=== PATIENT | male | born 1940 | race Caucasian/White ===

== ENCOUNTER → 2018-01-16 12:15 | Outpatient (CLI) | payer MEDICARE, SELFPAY ==
[2018-01-16 13:39] LABS: AST(SGOT) 22 U/L (15-37); Alanine Aminotransfer ALT/SGPT 19 U/L (16-61); Albumin, Serum 3.5 g/dL (3.2-5.0); Alkaline Phosphatase 74 U/L (45-117); Bilirubin, Direct 0.31 mg/dL (0.00-0.30); Cholesterol 74 mg/dL (200); Globulin 2.8 g/dL (2.2-4.2); High Density Lipoprotein 47 mg/dL; Protein, Total 6.3 g/dL (6.4-8.2); Triglycerides 43 mg/dL; Very Low Density Lipoprotein 9 mg/dL (5-40)
== END ==
PROVIDERS: Visit Provider Nurse Practitioner Family
DX: E78.2 Mixed hyperlipidemia (principal); E78.5 Hyperlipidemia, unspecified
CPT/HCPCS: 36415; 80061; 80076

== ENCOUNTER → 2019-12-15 | Outpatient (CLI) | payer MEDICARE, SELFPAY ==
[2019-02-09 14:08] VITALS: BMI 19.5
--- NOTE | 2019-12-15 13:52 | ECHOCS_ITS ---
Version 2 Reason For Study: CAD/ASHD Procedure This was a 2D Doppler, Color Flow transthoracic echocardiogram. The study was technically difficult. Contrast injection was performed. Exam performed in department. Left Ventricle Normal LV size. The estimated ejection fraction is 40 %. Stage 1 diastolic dysfunction. There are regional wall motion abnormalities as specified. Mid-Anterior : Severely Hypokinetic. Mid- anteroseptal : Hypokinetic. [place] : Akinetic. The rest of the wall segments are normal. Right Ventricle Normal RV size. ICD or pacer leads identified within the right ventricle. Normal systolic function. Atria Normal left atrium. Normal right atrium. Mitral Valve Normal mitral valve. Tricuspid Valve Normal tricuspid valve. Aortic Valve The aortic valve is not well visualized. Great Vessels Normal aortic root. The pulmonary artery is normal size. Normal inferior vena cava. Pericardium/Pleural No pericardial effusion. Medication 22 gauge I.V. with prn adaptor inserted into right arm. Diluted definity 4ml given slow IV push to enhance endocardial definition. MMode/2D Measurements & Calculations LVIDd: 5.3 cm IVSd: 0.86 cm LAV(MOD-bp): 47.3 ml LVIDs: 3.9 cm LVPWd: 1.1 cm LAV(MOD-sp2): 47.0 ml FS: 27.3 % LAV(MOD-sp4): 40.0 ml LA A4 area: 16.5 cm2 RA A4 area: 9.7 cm2 Time Measurements MV dec time: 0.30 sec Doppler Measurements & Calculations MV E max reynaldo: 51.1 cm/sec Lat Peak E' Reynaldo: 6.8 cm/sec Med Peak E' Reynaldo: 5.3 cm/sec MV A max reynaldo: 66.6 cm/sec E/E' lat: 7.5 E/E' med: 9.7 MV E/A: 0.77 MV V2 max: 85.7 cm/sec MV P1/2t max reynaldo: 66.4 cm/sec Ao V2 max: 112.7 cm/sec MV max P.9 mmHg MV P1/2t: 183.3 msec Ao max P.1 mmHg MV V2 mean: 43.7 cm/sec MV dec slope: 106.2 cm/sec2 MV mean P.89 mmHg MVA(P1/2t): 1.2 cm2 MV V2 VTI: 33.4 cm LV V1 max: 78.0 cm/sec LV V1 max P.4 mmHg Interpretation Summary Normal LV size. The estimated ejection fraction is 40 %. There are regional wall motion abnormalities as specified. ICD or pacer leads identified within the right ventricle. Stage 1 diastolic dysfunction. Contrast injection was performed. Ordering Physician: Wolfgang Conde Referring Physician: Wolfgang Conde Performed By: Henry Wyman RCS
== END | disposition home or self-care (01) ==
PROVIDERS: Referring Provider Internal Medicine Cardiovascular Disease; Visit Provider Internal Medicine Cardiovascular Disease
DX: I25.10 Atherosclerotic heart disease of native coronary artery without angina pectoris (principal)
CPT/HCPCS: 93306; Q9957; A4216; C8929

== ENCOUNTER 2020-09-21 07:19 | Outpatient (RCR) | payer MEDICARE, SELFPAY ==
[2020-09-21] MEDS: COVID-19 VACC, MRNA(PFIZER)/PF 30 MCG/0.3 ML SYRINGE IM (16:41)
[2020-10-12] MEDS: COVID-19 VACC, MRNA(PFIZER)/PF 30 MCG/0.3 ML SYRINGE IM (16:21)
== END 2020-12-19 23:59 ==
LOC: IMMUN 07:19
PROVIDERS: Referring Provider Family Medicine; Visit Provider Family Medicine
DX: Z23 Encounter for immunization (principal)
CPT/HCPCS: 0001A; 0002A; 91300

== ENCOUNTER → 2023-10-22 | Outpatient (CLI) | payer MEDICARE, SELFPAY ==
[2023-10-22 17:21] LABS: AST(SGOT) 18 U/L (15-37); Alanine Aminotransfer ALT/SGPT 16 U/L (16-61); Albumin, Serum 3.5 g/dL (3.2-5.0); Alkaline Phosphatase 65 U/L (45-117); Bilirubin, Direct 0.19 mg/dL (0.00-0.30); Cholesterol 171 mg/dL (200); Globulin 3.3 g/dL (2.2-4.2); High Density Lipoprotein 47 mg/dL; Protein, Total 6.8 g/dL (6.4-8.2); Triglycerides 96 mg/dL; Very Low Density Lipoprotein 19 mg/dL (5-40)
== END | disposition home or self-care (01) ==
LOC: LAB 14:52
PROVIDERS: Referring Provider Nurse Practitioner Family; Visit Provider Nurse Practitioner Family
DX: E78.00 Pure hypercholesterolemia, unspecified (principal)
CPT/HCPCS: 36415; 80061; 80076

== ENCOUNTER → 2023-11-10 | Outpatient (CLI) | payer MEDICARE, SELFPAY ==
[2023-11-10 16:58] LABS: Absolute Lymphocyte Count 1.08 X10^3/uL (0.83-4.51); Basophil# 0.02 X10^3/uL; Basophil% 0.4 % (0-1); Eosinophil# 0.05 X10^3/uL; Eosinophils% 0.9 % (0-5); Hematocrit 42.7 % (40-54); Lymphocyte # 1.08 X10^3/ul (0.83-4.51); Lymphocyte % 19.5 % (19-41); Mean Corp Hgb Conc 32.8 g/dL (32-36); Mean Corpuscular Hgb 30.7 pg (27.0-32.0); Mean Corpuscular Volume 93.6 fL (80-94); Mean Platelet Vol. 11.2 fl (6.2-12.0); Monocyte# 0.44 X10^3/uL; Monocyte% 7.9 % (0-10); NRBC Flagged by Analyzer 0 % (0-5); Neutrophil # 3.95 X10^3/uL (2.7-7.7); Neutrophil % 71.1 % (47-70); POSITIVE COUNT YES; RBC Distribution Width CV 13.4 % (11.6-14.6); RBC Distribution Width SD 45.7 fl (35.1-43.9); Red Blood Count 4.56 M/mm3 (4.6-6.2); White Blood Count 5.6 K/mm3 (4.4-11.0)
[2023-11-10 17:18] LABS: Differential Indicated SCAN CRITERIA MET
[2023-11-10 17:36] LABS: ALB/GLOB Ratio 1.1 RATIO (0.9-2.4); AST(SGOT) 23 U/L (15-37); Alanine Aminotransfer ALT/SGPT 19 U/L (16-61); Albumin, Serum 3.9 g/dL (3.2-5.0); Alkaline Phosphatase 71 U/L (45-117); Anion Gap 9 (5-15); BUN 20 mg/dL (7-18); BUN/Creat Ratio 15.7 RATIO (10-20); Calcium,Total 9.1 mg/dL (8.5-10.1); Chloride 107 mmol/L (98-107); Creatinine, Serum 1.27 mg/dL (0.70-1.30); EST Glomerular Filtration Rate 58 mL/min (>60); Est Glom Filt Rate - Afr Amer 70 mL/min (>60); Globulin 3.7 g/dL (2.2-4.2); Glucose 97 mg/dL (74-106); Magnesium 2.3 mg/dL (1.6-2.6); Potassium 4.3 mmol/L (3.5-5.1); Protein, Total 7.6 g/dL (6.4-8.2); Sodium Level 137 mmol/L (136-145); T4 Free Direct 1.24 ng/dL (0.76-1.46); Thyroid Stim Hormone (TSH) 1.52 uIU/mL (0.358-3.74)
[2023-11-10 18:16] LABS: Differential Comment SCANNED
[2023-11-10 18:17] LABS: Platelet Estimate ADEQUATE (ADEQ)
== END | disposition home or self-care (01) ==
LOC: LAB 15:57
PROVIDERS: Referring Provider Nurse Practitioner Family; Visit Provider Nurse Practitioner Family
DX: I47.29 Other ventricular tachycardia (principal); R00.1 Bradycardia, unspecified
CPT/HCPCS: 36415; 80053; 83735; 84439; 84443; 85025

== ENCOUNTER 2025-01-22 23:48 | Emergency (ER) | payer MEDICARE, SELFPAY ==
[2025-01-22 23:50] VITALS: BP 149/110; PULSE 58; RESP 16; TEMP 36.8; O2SAT 100; BMI 18.1
--- NOTE | 2025-01-23 00:44 | EDS_ITS ---
HPI History of Present Illness Chief Complaint: Suicidal Narrative Narrative: Chief complaint and HPI: Suicidal ideation. 84-year-old male with past medical history of HTN, HLD presents as a pink slip by police for suicidal ideation. Police officers responded to a threat complaint as patient was making threats to his neighbors. He then stated multiple times that he wanted to end it all and put a gun to his head. On presentation, patient is calm and sitting in the bed. He repeats I am just tired of this and want to end it. When I asked him about the reported statement that he wanted to end his life with a gun, he states that is not true. Although he did state it to my nurse prior to me entering the room. He denies homicidal ideation. He states he does not want to talk to me and does not want to answer my questions. Review of systems: See HPI Medications: As listed on the chart Allergies: As listed on the chart PFSH: Per chart Vital signs: As listed on the chart. Reviewed. 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 (07/28/09) Ischemic cardiomyopathy HLD (hyperlipidemia) Bradycardia Home Medications ?Medication ?Instructions ?Recorded ?Last Taken ?Type aspirin 81 mg tablet,delayed 81 mg PO QDAY 07/23/17 Un known History release (Adult Aspirin Regimen) atorvastatin 80 mg tablet 80 mg PO QDAY #90 tabs 10/27 Unknown Rx carvedilol 12.5 mg tablet 12.5 mg PO BID #180 tabs Unknown Rx lisinopril 10 mg tablet 10 mg PO QDAY #90 tabs 09/23 Unknown Rx Allergy/AdvReac Type Severity Reaction Status Date / Time No Known Allergies Allergy Verified 12/01/24 14:17 Family History Mother CAD (coronary artery disease) Myocardial infarction Aunt CAD (coronary artery disease) Myocardial infarction Uncle CAD (coronary artery disease) Myocardial infarction Surgical History Presence of automatic implantable cardioverter-defibrillator (07/23/12) History of coronary artery stent placement (07/28/09) Social History Smoking Status: Never smoker alcohol intake: never substance use type: does not use caffeine: Yes Type: coffee what type of physical activity do you participate in: walking frequency: daily duration: 60-90 minutes/day seatbelt use: always do you feel safe at home: Yes EXAM Physical Exam Const Vital Signs: 01/22/25 23:50 01/23/25 00:49 01/23/25 02:00 Temperature 98.3 F Temperature Source Oral Pulse Rate 58 L 84 91 Respiratory Rate 16 18 16 Blood Pressure 149/110 H 138/96 H 132/89 H Blood Pressure Mean 123 110 103 Pulse Ox 100 98 99 Oxygen Delivery Method Room Air 01/23/25 02:54 Temperature Temperature Source Pulse Rate 94 Respiratory Rate 16 Blood Pressure 141/99 H Blood Pressure Mean 113 Pulse Ox 99 Oxygen Delivery Method MDM MDM MDM Narrative Medical decision making narrative: 84-year-old male with past medical history of HTN, HLD presents as a pink slip by police for suicidal ideation. See HPI. On presentation, patient is alert and oriented x 3 but is reluctant to speak with me. He states that I am just sick of it all. He told my nurse prior to me entering the room that he did want to kill himself with a gun. Given the reports from police, my nurse, and my own assessment, patient will be pink slipped for suicidal ideation. He was informed of this. Confirmed understanding. Basic labs ordered and crisis consulted. CBC shows pancytopenia with a WBC of 4.2, hemoglobin 11.8, and platelet count of 136. He has not had labs in our emergency department since 2023. At that time he had a normal white count but has had previous leukopenia in the past. His anemia is new from 2023. He has had leukopenia since 2014. I did speak with the patient about his lab results. He states he does not know the last time he had his labs drawn. He denies any bloody or dark bowel movements. BMP shows renal insufficiency with a BUN of 27 and a creatinine of 1.53. I suspect this is chronic as in 2023 patient had an elevated BUN of 20 and a creatinine 1.27. Urine drug screen negative. Alcohol level unremarkable. Patient is cleared to be evaluated by crisis. Crisis evaluated the patient and is recommending [facility]. They state he missed one of his orientation questions however he got them all correctly for me. Will add on CT brain and UA. CT of the head shows moderate global parenchymal atrophy and chronic microvascular ischemia. UA pending at this time. Patient was accepted to [facility]. Will await UA results prior to arrival. Patient was signed out to oncoming provider who will await the UA results. Impression: 1. Suicidal ideation 2. Pancytopenia 3. Renal insufficiency Lab Data Labs: Laboratory Results - last 24 hr 01/23/25 01/23/25 00:13 01:30 WBC 4.2 L RBC 3.72 L Hgb 11.8 L Hct 34.1 L MCV 91.7 MCH 31.7 MCHC 34.6 RDW Std Deviation 41.1 RDW Coeff of Neva 12.2 Plt Count 136 L MPV 12.1 H Immature Gran % (Auto) 0.200 Neut % (Auto) 58.0 Lymph % (Auto) 31.2 [place]y % (Auto) 8.7 Eos % (Auto) 1.7 Baso % (Auto) 0.2 Absolute Neuts (auto) 2.5 Absolute Lymphs (auto) 1.32 Nucleated RBC % 0 Sodium 136 Potassium 3.9 Chloride 103 Carbon Dioxide 19.9 L Anion Gap 13 BUN 27 H Creatinine 1.53 H Estim Creat Clear Calc 28.48 L Est GFR (MDRD) Non-Af 45 L BUN/Creatinine Ratio 17.6 Glucose 130 H Calcium 8.9 Urine Opiates Screen NEGATIVE U Buprenorphine Qual NEGATIVE Ur Oxycodone Screen NEGATIVE Urine Methadone Screen NEGATIVE Urine Fentanyl Screen NEGATIVE Ur Barbiturates Screen NEGATIVE Ur Phencyclidine Scrn NEGATIVE Ur Amphetamines Screen NEGATIVE U Benzodiazepines Scrn NEGATIVE Urine Cocaine Screen NEGATIVE U Cannabinoids Screen NEGATIVE Ethyl Alcohol < 10.1 Radiography Diagnostic Testing: Clinical Impression(s) from Imaging Studies Brain CT 01/23/25 02:00 IMPRESSION: NO ACUTE FINDINGS Reading Location: [place] [address] Discharge Plan Triage Chief Complaint: Suicidal ED Provider: Henry Florentino Dx/Rx/DC Orders Prescriptions: No Action aspirin [Adult Aspirin Regimen] 81 mg tablet,delayed release (DR/EC) 81 mg PO QDAY atorvastatin 80 mg tablet 80 mg PO QDAY Qty: 90 3RF lisinopril 10 mg tablet 10 mg PO QDAY Qty: 90 3RF carvedilol 12.5 mg tablet 12.5 mg PO BID Qty: 180 3RF Primary Care Provider: Care Physician,No Primary Referrals: NOT,DEFINED [Non-Staff] - Print Language: Kinyarwanda
[2025-01-23 00:49] VITALS: BP 138/96; PULSE 84; RESP 18; O2SAT 98
[2025-01-23 00:49] LABS: Hematocrit 34.1 % (40-54); Hemoglobin 11.8 g/dL (13.0-16.5); Immature Granulocytes Count 0.010 X10^3/uL (0.0-0.0); Mean Corp Hgb Conc 34.6 g/dL (32-36); Mean Corpuscular Volume 91.7 fL (80-94); Mean Platelet Vol. 12.1 fl (6.2-12.0); NRBC Flagged by Analyzer 0 % (0-5); Platelet Count 136 K/mm3 (150-450); RBC Distribution Width CV 12.2 % (11.6-14.6); RBC Distribution Width SD 41.1 fl (35.1-43.9); Red Blood Count 3.72 M/mm3 (4.6-6.2); White Blood Count 4.2 K/mm3 (4.4-11.0)
--- OUTSIDE RECORDS SUMMARY | 2025-01-23 00:51 | XMS RPT_ITS | CCD ---
Author Organization [facility] CliniSym[facility] Care Team Providers Care Control And Recovery Special Tactics Name Role Phone CHERYL Herrera, Gina Hidalgo Unavailable Unavailable CHERYL Herrera, Gina Hidalgo Unavailable Unavailable Doreneis, Harumi Y Unavailable Unavailable MD Elton, Wolfgang Sue Unavailable CHERYL Herrera, Gina Hidalgo Unavailable Unavailable Alisia Vasquez Unavailable Mary LUNA, Mine Lugo Unavailable Unavailable DeFinis, Harumi Y Unavailable Unavailable CHERYL Herrera, Gina Hidalgo Unavailable Unavailable DeFinis, Harumi Y Unavailable Unavailable Care Physician, No Primary Primary Care Provider Unavailable Dr. Wolfgang Conde Attending Provider [phone] Roof PRE KINDERGARTEN TEACHER, PRE KINDERGARTEN TEACHER-C Marcelino Johnson Attending Provider Care Physician, No Primary Referring Provider Un available Care Physician, No Primary Primary Care Provider Unavailable Care Physician, No Primary Referring Provider Un available Toya Herrera Attending Provider Unavailable Roof PRE KINDERGARTEN TEACHER, PRE KINDERGARTEN TEACHER-C Marcelino Johnson Attending Provider Dr. Wolfgang Conde Attending Provider [phone] Wolfgang Conde Referring Provider [phone] Care Physician, No Primary Primary Care Provider Unavailable Care Physician, No Primary Referring Provider Un available Toya Herrera Attending Provider Unavailable Roof PRE KINDERGARTEN TEACHER-C, Marcelino Johnson Attending Provider Dr. Wolfgang Conde MD Attending Provider [phone] Dr. Wolfgang Conde MD Referring Provider Care Physician, No Primary Primary Care Provider Unavailable Care Physician, No Primary Referring Provider Un available Wolfgang Conde Attending Unavailable Wolfgang Conde Attending Unavailable Wolfgang Conde Referring Unavailable Care Physician, No Primary Primary Care Unava ilable Care Physician, No Primary Primary Care Unava ilable Care Physician, No Primary Referring Unava ilable Roof Marcelino MORGAN Attending Unavailable Wolfgang Conde Attending Unavailable Care Physician, No Primary Primary Care Unava ilable Care Physician, No Primary Primary Care Unava ilable Care Physician, No Primary Referring Unava ilable Roof Marcelino MORGAN Attending Unavailable Wolgfang Conde Referring Unavailable Wolfgang Conde Attending Unavailable Care Physician, No Primary Primary Care Unava ilable Wolfgang Conde Attending Unavailable Wolfgang Conde Attending Unavailable Wolfgang Conde Referring Unavailable Care Physician, No Primary Primary Care Unava ilable Medications Current Medications Medication Drug Class(es) Dates Sig (Normalized) Sig (Original) aspirin 81 mg delayed release oral tablet (20 sources) Nonsteroidal Anti-inflammatory Drug Start: 07-23-2017 take 1 tablet by mouth once daily Aspirin (Adult Aspirin Regimen) 81 mg tablet,delayed release (DR/EC) Active 81 mg PO daily July 23, 2017 1:00am Start: 11-20-2010 take 1 tablet by cydney th once daily ASPIRIN 81 MG TABS One tablet by mouth daily ASPIRIN [id number] Deepak Dawson MD Start: 11-20-2010 take 1 tablet by cydney th once daily ASPIRIN 81 MG TABS One tablet by mouth daily ASPIRIN [id number] Tricia Gomez Start: 11-20-2010 take 1 tablet by cydney th once daily ASPIRIN EC 81 MG TBEC One tablet by mouth daily ASPIRIN [id number] Jeimy Mendez RN carvedilol 12.5 mg oral tablet (20 sources) alpha-Adrenergic Juanito, beta-Adrenergic Juanito Start: 11-10-2023 End: 09-23-2024 take 1 tablet by mouth twice daily Carvedilol 12.5 mg tablet Active 12.5 mg PO TWICE A DAY 180 September 23, 2024 2:25pm Start: 07-23-2017 End: 11-10-2023 take 1 tablet by mouth twice daily Carvedilol 6.25 mg tablet Discontinued 0 .ROUTE .COMPLEX 180 November 12, 2022 9:01am July 17, 2023 2:48pm TAKE 1 TABLET BY MOUTH TWICE A DAY Start: 11-20-2010 take 1 tablet by cydney th twice daily COREG 6.25 MG TABS One tablet by mouth twice daily CARVEDILOL [id number] Wolfgang Conde MD Completed/Discontinued Medications Medication Drug Class(es) Dates Sig (Normalized) Sig (Original) atorvastatin 80 mg oral tablet (20 sources) HMG-CoA Reductase Inhibitor Start: 07-23-2017 End: 10-28-2019 take 1 tablet by mouth once daily Atorvastatin 80 mg tablet Discontinued 80 mg PO daily January 15, 2018 9:02am February 09, 2019 3:05pm Start: 11-20-2010 take 1 tablet by cydney th once daily LIPITOR 80 MG TABS One tablet by mouth daily ATORVASTATIN CALCIUM [id number] Wolfgang Conde MD clopidogrel 75 mg oral tablet (20 sources) P2Y12 Platelet Inhibitor Start: 07-23-2017 End: 07-17-2023 take 1 tablet by mouth once daily Clopidogrel 75 mg tablet Discontinued 0 .ROUTE .COMPLEX November 12, 2022 9:01am July 17, 2023 2:48pm TAKE 1 TABLET BY MOUTH EVERY DAY Start: 11-20-2010 take 1 tablet by cydney th once daily PLAVIX 75 MG TABS One tablet by mouth daily CLOPIDOGREL BISULFATE [id number] Jeimy Huang PA-C lisinopril 10 mg oral tablet (20 sources) Angiotensin Converting Enzyme Inhibitor Start: 07-17-2023 End: 09-23-2024 take 1 tablet by mouth once daily Lisinopril 10 mg tablet Discontinued 10 mg PO daily September 16, 2023 2:00pm September 23, 2024 2:25pm Start: 04-10-2023 End: 07-17-2023 take 1 tablet by mouth once daily Lisinopril 5 mg tablet Discontinued 5 mg PO daily April 10, 2023 1:28pm July 17, 2023 3:06pm Start: 07-23-2017 End: 04-10-2023 take 1 tablet by mouth once daily Lisinopril 2.5 mg tablet Discontinued 2.5 mg PO daily January 13, 2023 8:11am April 10, 2023 1:28pm Start: 11-20-2010 take 1 tablet by cydney th once daily LISINOPRIL 2.5 MG TABS One tablet by mouth daily LISINOPRIL [id number] Wolfgang Conde MD warfarin sodium 1 mg oral tablet (20 sources) Vitamin K Antagonist Start: 11-20-2010 End: 10-11-2011 take 1 tablet by mouth once daily in the evening, then take 2.5 tablets by mouth, then take 3.5 tablets by mouth COUMADIN 1 MG TABS 1 tablet by mouth every evening with a 2.5mg tablet to = 3.5 WARFARIN SODIUM [id number] Tricia Gomez Start: 11-20-2010 End: 10-11-2011 take 1 tablet by mouth once daily in the evening, then take 1 tablet by mouth COUMADIN 2.5 MG TABS 1 tablet by mouth every evening with a 1mg tablet to - 3.5 mg WARFARIN SODIUM [id number] Wolfgang Conde MD Problems Active Problems Problem Classification Problem Date Documented Da te Episodic/Chronic Acute myocardial infarction (20 sources) Non-ST elevation (NSTEMI) myocardial infarction; Translations: [Acute subendocardial infarction] Onset: 11-20-2010 11-20-2010 Chronic Cardiac dysrhythmias (20 sources) Bradycardia; Translations: [Paroxysmal atrial flutter] Onset: 06-22-2013 06-22-2013 Chronic Conduction disorders (20 sources) Presence of automatic (implantable) cardiac defibrillator; Translations: [Automatic implantable cardiac defibrillator in situ] Onset: 07-23-2012 07-30-2012 Chronic Comment on above: [employer] En ergen ICD Dual Chamber Coronary atherosclerosis and other heart disease (20 sources) Coronary arteriosclerosis; Translations: [Coronary atherosclerosis] Onset: 07-28-2009 Resolved: 12-13-2015 11-20-2010 Chronic Comment on above: GZO-XGP-Vhgh and Mid LAD w/ Veriflex BMS 3.0 x 20 mm and Micro Chief Specialist Leed BMS 2.5 x 18 mm 07/28/09 Disorders of lipid metabolism (20 sources) Hyperlipidemia; Translations: [Hyperlipidemia, unspecified] Onset: 06-10-2012 06-10-2012 Chronic Essential hypertension (10 sources) Essential hypertension; Translations: [Essential (primary) hypertension] 07-17-2023 Chronic Other and ill-defined heart disease (6 sources) Mural thrombus of heart; 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, not elsewhere classified] Onset: 11-20-2010 11-20-2010 Chronic Apple-; endo-; and myocarditis; cardiomyopathy (10 sources) Cardiomyopathy in diseases classified elsewhere; Translations: [Cardiomyopathy in diseases classified elsewhere] Onset: 11-20-2010 11-20-2010 Chronic Residual codes; unclassified (7 sources) Memory impairment; Translations: [Other amnesia] 11-10-2023 Episodic Residual codes; unclassified (1 source) Other amnesia; Translations: [Memory loss] 11-10-2023 Episodic Unclassified (7 sources) Percutaneous transluminal coronary angioplasty ; Translations: [Coronary angioplasty status] Onset: 11-20-2010 11-20-2010 Unclassified (4 sources) Long-term drug therapy; Translations: [Other extraction supervisor (current) drug therapy] Onset: 11-20-2010 11-20-2010 Unclassified (1 source) Other ventricular tachycardia; Translations: [Other ventricular tachycardia] Onset: 12-20-2024 Past or Other Problems Problem Classification Problem Date Documented Date Episodic/Chronic Cardiac dysrhythmias (12 sources) Bradycardia; Translations: [Bradycardia, unspecified] Onset: 4 07-23-2017 Episodic Complications of surgical procedures or medical care (10 sources) Iatrogenic pneumothorax; Translations: [Other pneumothorax] Onset: 3 07-27-2012 Episodic Coronary atherosclerosis and other heart disease (2 sources) Presence of coronary angioplasty implant and graft; Translations: [Percutaneous transluminal coronary angioplasty status] Onset: 0 07-17-2023 Episodic Nonspecific chest pain (20 sources) Precordial pain; Translations: [Precordial pain] Onset: 1 Resolved: 6 11-20-2010 Episodic Other aftercare (6 sources) Other extraction supervisor (current) drug therapy; Translations: [Other extraction supervisor (current) drug therapy] Onset: 1 11-20-2010 Episodic Other circulatory disease (20 sources) Electrocardiogram abnormal; Translations: [Abnormal electrocardiogram [ECG] [EKG]] Onset: 1 Resolved: 6 11-20-2010 Episodic Results Test Name Value Interpretation Reference Range Facility Cardiology Visit Reporton Cardiology Visit Report [facility] [address] [place] [address] OFFICE VISIT Date of Service: 12/01/24 MR#: [id number] Acct: [id number] Name: SOPHIA CORTES Rep #: [id number] : 1940 Provider: TOMAS rushing Age/Sex: 83/M Location: [facility] Status: Signed HPI HPI History of Present Illness Details: SOPHIA CORTES, is a 83 M who presents to the office today for a cardiovascular outpatient follow- up.???He has a history of coronary artery disease status post stenting BMS to mid and proximal LAD in July 2009, ischemic cardiomyopathy, status post ICD implantation, and hyperlipidemia. He denies chest, arm, jaw, or neck discomfort. He denies palpitations. He denies bilateral lower extremity edema. He denies claudication. He denies shortness of breath with activity, shortness of breath at rest, orthopnea, or PND. He denies chronic cough. He denies significant, sudden weight gain. He denies lightheadedness, dizziness, near-syncope, or syncope. He denies blood in urine, blood in stool, or epistaxis. He denies fever with chills. He denies myalgia. He denies fatigue. His exercise level has remained stable. 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) LV (left ventricular) mural thrombus Atherosclerosis of tribal coronary artery of tribal heart without angina pectoris (07/28/09) Ischemic cardiomyopathy HLD (hyperlipidemia) Bradycardia Surgical History Presence of automatic implantable cardioverter-defibr illator (07/23/12) History of coronary artery stent placement (07/28/09) Family History Mother CAD (coronary artery disease) Myocardial infarction Aunt CAD (coronary artery disease) Myocardial infarction Uncle CAD (coronary artery disease) Myocardial infarction Social History Smoking Status: Never smoker alcohol intake: never substance use type: does not use caffeine: Yes Type: coffee what type of physical activity do you participate in: walking frequency: daily duration: 60-90 minutes/day seatbelt use: always do you feel safe at home: Yes ROS Const Const: Negative for fatigue, weakness, headache(s) or frequent falls Eyes Eyes: Negative for blurry vision ENT ENT: Negative for headache(s), dizziness or Nosebleed/epistaxis Cardio Chest Pain: No Palpitations: No Edema: None Muscle aches with walking: None Resp Respiratory: Negative for SOB with activity, SOB at rest or SOB orthopnea SOB lying down GI GI: Negative nausea, vomiting, heartburn, bright, red blood in stools or black,tarry stools : Negative for hematuria Neuro Neuro: Negative for dizziness, lightheadedness, near syncope, syncope, frequent falls, headache(s), weakness or blurry vision Endo Endo: Negative for fatigue Cardiology Exam Const Appearance: cooperative, healthy appearing, comfortable and no acute distress Nutritional Appearance: average body habitus and well nourished Orientation: alert, awake and oriented x3 Head Head: normal to inspection Ears: hearing grossly normal bilaterally Nose: external nose normal Face and Sinus: face symmetric Mouth: moist mucous membranes Eyes General: appearance normal, both eyes and all related structures Eyelids: eyelids normal EOM: EOM intact bilaterally Neck Neck: normal visual inspection and no JVD Carotids: normal carotid upstroke Chest Chest inspection: normal inspection of the chest, symmetric chest movement, Pacemaker/ICD Yes left pectoral incision, normal respiratory effort and other (PPM- Free of obvious infenction); Negative cough Auscultation: Bilateral: Diminished Lung Sounds Cardio Rate: regular rate Rhythm: regular rhythm Heart sounds: S1 normal and S2 normal; Negative rub, gallop or murmur GI GI: normal to inspection Neuro General: patient alert, patient awake, patient oriented x3 and CN's II-XI intact bilaterally Skin Skin: no rashes or lesions noted Extremities Pulses: Normal: Right Posterior Tibial Pulse, Left Posterior Tibial Pulse, Right Radial Pulse and Left Radial Pulse Lower Extremity Edema: None: Bilateral Psych Psychological: normal affect S (more content not included)... Normal [facility] Pacemaker Checkon 12-01-2024 Pacemaker Check [facility] [address] [place], [place] [address] Pacemaker Check Date of Service: 12/01/241713 MR#: [id number] Acct: [id number] Name: SOPHIA CORTES Rep #: [id number] : 1940 From: Toya Herrera Age/Sex: 83/M Location: [facility] Status: Signed Billing Codes ICD Device Billin ICD Dev Prog Eval, Dual Assessment and Plan Assessment and Plan (1) Ischemic cardiomyopathy: Status: Chronic (2) Presence of automatic implantable cardioverter-defibr illator: Status: Chronic Comment: [employer] Energen ICD Dual Chamber (3) NSVT (nonsustained ventricular tachycardia): Status: Chronic 12/01/241713 Date Toya Gonzalez Signature: Date (if applicable) CC: Normal [facility] Cardiology Visit Reporton Cardiology Visit Report [facility] [address] [place], [place] [address] OFFICE VISIT Date of Service: 05/10/24 MR#: [id number] Acct: [id number] Name: SOPHIA CORTES Rep #: [id number] : 1940 Provider: TOMAS rushing Age/Sex: 83/M Location: [facility] Status: Signed [facility] History of Present Illness Details: SOPHIA CORTES, is a 83 M who presents to the office today for a cardiovascular outpatient follow- up.???He has a history of coronary artery disease status post stenting BMS to mid and proximal LAD in July 2009, ischemic cardiomyopathy, status post ICD implantation, and hyperlipidemia. He denies chest, arm, jaw, or neck discomfort. He denies palpitations. He denies bilateral lower extremity edema. He denies claudication. He denies shortness of breath with activity, shortness of breath at rest, orthopnea, or PND. He denies chronic cough. He denies significant, sudden weight gain. He denies lightheadedness, dizziness, near-syncope, or syncope. He denies blood in urine, blood in stool, or epistaxis. He denies fever with chills. He denies myalgia. He denies fatigue. His exercise level has remained stable. Intake Vital Signs 11/10/23 15:29 05/10/24 14:51 Height 5 ft 8 in 5 ft 8 in Weight: 139 lb BMI 21.1 BP 136/67 H Blood Pressure Location Lt brachial Position Sitting Respiration 16 Pulse 55 L Pulse Source NIBP Intake Visit Reasons: 6 M FU ICD f/u @ 2:30pm Activities Attendant Required: No Accompanied by: Sister Is patient in pain?: No Allergies No Known Allergies Allergy (Verified 05/10/24 14:46) Medications ???Medication ???Instructions ???Recorded ???Confirmed ???Type aspirin 81 mg tablet,delayed 81 mg PO QDAY 07/23/17 05/10/24 History release (Adult Aspirin Regimen) atorvastatin 80 mg tablet 80 mg PO QDAY #90 tabs 10/28/19 11/10/23 Rx lisinopril 10 mg tablet 10 mg PO QDAY #90 tabs 09/16/23 11/10/23 Rx carvedilol 12.5 mg tablet 12.5 mg PO BID #180 tabs 11/10/23 11/10/23 Rx Ejection fraction %: 40 Have you fallen in the past year?: No Nurse's Note: Patient doesn't know what medications that he takes. 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) LV (left ventricular) mural thrombus Atherosclerosis of tribal coronary artery of tribal heart without angina pectoris (07/28/09) Ischemic cardiomyopathy HLD (hyperlipidemia) Bradycardia Surgical History Presence of automatic implantable cardioverter-defibr illator (07/23/12) History of coronary artery stent placement (07/28/09) Family History Mother CAD (coronary artery disease) Myocardial infarction Aunt CAD (coronary artery disease) Myocardial infarction Uncle CAD (coronary artery disease) Myocardial infarction Social History Smoking Status: Never smoker alcohol intake: never substance use type: does not use caffeine: Yes Type: coffee what type of physical activity do you participate in: walking frequency: daily duration: 60-90 minutes/day seatbelt use: always do you feel safe at home: Yes ROS Const Const: Negative for fatigue or weakness Eyes Eyes: Negative for change in vision ENT ENT: Negative for dizziness, Nosebleed/epistaxis or balance problems Cardio Chest Pain: No Palpitations: No Edema: None Muscle aches with walking: None Resp Respiratory: Negative for SOB with activity, SOB at rest, SOB orthopnea SOB lying down, Cough or paroxysmal nocturnal dyspnea GI GI: Negative nausea, heartburn or black,tarry stools : Negative for hematuria Musc Musc: Negative for muscle aches/ myalgia, muscle weakness, joint pain or balance problems Skin Skin: Negative rash Neuro Neuro: Negative for dizziness, lightheadedness, near syncope, syncope or weakness Michel Hematologic/Lymphat ic: Negative for easy bleeding or easy bruising Endo Endo: Negative for fatigue Allergy Allergy/Immunology: Negative for rash Cardiology Exam Const Appearance: cooperative, healthy appearing, comfortable and no acute distress Nutritional Appearance: average body habitus and well nourished Orientation: alert, awake and oriented x3 Head Head: normal to inspection Ears: hearing grossly normal bilaterally Nose: external nose normal Face and Sinus: face symmetric Mouth: moist mucous membranes Eyes General: appearance normal, both eyes and all related structures Eyelids: eyelids normal EOM: EOM intact bilaterally Neck Neck: normal visual inspection and no JVD Carotids: normal carotid upstroke Chest Chest inspection: normal inspection of the chest, symmetric chest movement, Pacemaker/ICD Yes left (more content not included)... Normal [facility] Pacemaker Checkon 05-10-2024 Pacemaker Check [facility] [address] [place] [address] Pacemaker Check Date of Service: 05/10/24 1503 MR#: [id number] Acct: [id number] Name: SOPHIA CORTES Rep #: [id number] : 1940 From: Toya Herrera Age/Sex: 83/M Location: [facility] Status: Signed Billing Codes ICD Device Billin ICD Dev Prog Eval, Dual Assessment and Plan Assessment and Plan (1) Ischemic cardiomyopathy: Status: Chronic (2) Presence of automatic implantable cardioverter-defibr illator: Status: Chronic Comment: [employer] Energen ICD Dual Chamber (3) Bradycardia: Status: Chronic 05/10/24 1504 Date Toya Gonzalez Signature: Date (if applicable) CC: Normal [facility] Pacemaker Checkon 03-05-2024 Pacemaker Check [facility] [address] [place] [address] Pacemaker Check Date of Service: 03/05/24 1252 MR#: [id number] Acct: [id number] Name: SOPHIA CORTES Rep #: [id number] : 1940 From: Toya Herrera Age/Sex: 83/M Location: [facility] Status: Signed Billing Codes ICD Device Billing: ICD Dev Prog Eval, Dual Assessment and Plan Assessment and Plan (1) NSVT (nonsustained ventricular tachycardia): Status: Acute (2) Ischemic cardiomyopathy: Status: Chronic (3) Presence of automatic implantable cardioverter-defibr illator: Status: Chronic Comment: [employer] ICD Dual Chamber 03/05/24 1253 Date Toya Gonzalez Signature: Date (if applicable) CC: Normal [facility] Absolute lymphocyte countOrd ered By: Marcelino Arizmendi on 11-10-2023 Lymphocytes Auto (Unsp spec) [#/Vol] 1.08 10*3/uL 0.83-4.[address] [facility] Automated lymphocyte count a s percentage of total leukocytesOrdered By: Marcelino Arizmendi on 11-10-2023 Lymphocytes/100 WBC Auto (Unsp spec) 19.5 % 19-[address] [facility] Basophil percentageOrdered B y: Marcelino Arizmendi on 11-10-2023 Basophils/100 WBC (Bld) 0.4 % 0-[address] [facility] Bilirubin [Mass/Vol] 1.20 mg/dL 0.20-1.00 [facility] Comment on above: For patients on eltr ombopag therapy, use of Dimension [place] TBIL is not recommended. Chloride [Moles/Vol] 107 mmol/L 98-107 [facility] Eosinophils/100 WBC (Bld) 0.9 % 0-[address] [facility] Glucose [Mass/Vol] 97 mg/dL 74-106 [facility] Hemoglobin (Bld) [Mass/Vol] 14.0 g/dL 13.0-16.[address] [facility] Monocytes/100 WBC (Bld) 7.9 % 0-[address] [facility] Neutrophils (Bld) [#/Vol] 4.0 10*3/uL 2.0-7.[address] [facility] Neutrophils/100 WBC (Bld) 71.1 % 47-[address] [facility] Potassium [Moles/Vol] 4.3 mmol/L 3.5-5.1 [facility] Protein [Mass/Vol] 7.6 g/dL 6.4-8.2 [facility] Sodium [Moles/Vol] 137 mmol/L 136-145 [facility] WBC (Bld) [#/Vol] 5.6 10*3/uL 4.4-11.0 [facility] Blood manual differential co mment interpretation (narrative result)Ordered By: Marcelino Arizmendi on 11-10-2023 Manual differential comment Eduardo (Bld) [Interp] SCANNED [facility] Comment on above: Please note: For thi s sample, a platelet estimate is provided rather than a platelet count due to platelet clumping. Other parameters associated with this sample are not affected by platelet clumping. If a more accurate platelet count is required, a redraw of the patient will be necessary. Blood platelet adequacy dete ction by light microscopyOrdered By: Marcelino Arizmendi on 11-10-2023 Platelets LM Ql (Bld) ADEQUATE ADEQ [facility] Determination of erythrocyte mean corpuscular volume (MCV)Ordered By: Marcelino Arizmendi on 11-10-2023 MCV (RBC) [Entitic vol] 93.6 fL 80-[address] [facility] Erythrocyte distribution wid th ratioOrdered By: Marcelino Arizmendi on 11-10-2023 Erythrocyte distribution width (RBC) [Ratio] 13.4 % 11.6-14.[address] [facility] Erythrocyte distribution wid th standard deviationOrdered By: Marcelino Arizmendi on 11-10-2023 Erythrocyte distribution width (RBC) [Entitic vol] 45.7 fL 35.1-43.[address] [facility] Hematocrit Auto (Bld) [Volum e fraction]Ordered By: Marcelino Arizmendi on 11-10-2023 Hematocrit (Bld) [Volume fraction] 42.7 % 40-[address] [facility] Immature granulocytes/100 WB C Auto (Bld)Ordered By: Marcelino Arizmendi on 11-10-2023 Immature granulocytes/100 WBC (Bld) 0.200 % 0.0-0.[address] [facility] Comment on above: IG% - Immature Granu locytes (promyelocytes, myelocytes and metamyelocytes) > 1% indicates that a LEFT SHIFT is Present. Laboratory - Chemistry and C hemistry - challengeOrdered By: Marcelino Arizmendi on 11-10-2023 Albumin/Globulin [Mass ratio] 1.1 {ratio} 0.9-2.[address] [facility] ALP [Catalytic activity/Vol] 71 U/L 45-[address] [facility] ALT [Catalytic activity/Vol] 19 U/L 16-[address] [facility] CO2 [Moles/Vol] 21.0 mmol/L 21.0-32.[address] [facility] Globulin (S) [Mass/Vol] 3.7 g/dL 2.2-4.[address] [facility] Magnesium [Mass/Vol] 2.3 mg/dL 1.6-2.6 [facility] Urea nitrogen/Creatinine [Mass ratio] 15.7 mg/mg 10-[address] [facility] Laboratory - Hematology and Cell countsOrdered By: Marcelino Arizmendi on 11-10-2023 MCH (RBC) [Entitic mass] 30.7 pg 27.0-32.[address] [facility] MCHC (RBC) [Mass/Vol] 32.8 g/dL 32-36 [facility] Nucleated RBC/100 WBC (Bld) [Ratio] 0 % 0-[address] [facility] Platelet mean volume (Bld) [Entitic vol] 11.2 fL 6.2-12.[address] [facility] No Panel InformationOrdered By: Marcelino Arizmendi on 11-10-2023 Estimated GFR (MDRD) Amer 70 mL/min >[address] [facility] Comment on above: GFR Calc Estimated GFR (MDRD) Non-Af Amer 58 mL/min >[address] [facility] Comment on above: Non- GFR Calc Platelet Count TNP [facility] Comment on above: Test not performedPl ease note: For this sample, a platelet estimate is provided rather than a platelet count due to platelet clumping. Other parameters associated with this sample are not affected by platelet clumping. If a more accurate platelet count is required, a redraw of the patient will be necessary. RBC Auto (Bld) [#/Vol]Ordere d By: Marcelino Arizmendi on 11-10-2023 RBC (Bld) [#/Vol] 4.56 10*6/uL 4.6-6.2 [facility] Serum or plasma calcium diane urement (mass/volume)Ordered By: Marcelino Arizmendi on 11-10-2023 Calcium [Mass/Vol] 9.1 mg/dL 8.5-10.1 [facility] Serum or plasma creatinine m easurement (mass/volume)Ordered By: Marcelino Arizmendi on 11-10-2023 Creatinine [Mass/Vol] 1.27 mg/dL 0.70-1.30 [facility] Comment on above: The validity of the calculated GFR & GFRAA in patients over 70 years has not been determined. Clinical correlation is essential. Serum or plasma thyroid stim ulating hormone (TSH) measurement (units/volume)Ordered By: Marcelino Arizmenid on 11-10-2023 TSH Qn 1.52 uIU/mL 0.358-3.[address] [facility] Serum or plasma urea nitroge n measurement (mass/volume)Ordered By: Marcelino Arizmendi on 11-10-2023 Urea nitrogen [Mass/Vol] 20 mg/dL 7-[address] [facility] Thin prep Papanicolaou smear with manual screeningOrdered By: Marcelino Arizmendi on 11-10-2023 Thin prep Papanicolaou smear with manual screening 3.9 g/dL 3.2-5.[address] [facility] Thin prep Papanicolaou smear with manual screening 23 U/L 15-[address] [facility] Thin prep Papanicolaou smear with manual screening 9 5-[address] [facility] Thin prep Papanicolaou smear with manual screening 1.24 ng/dL 0.76-1.[address] [facility] Basophil percentageOrdered B y: Marcelino Arizmendi on 10-22-2023 Bilirubin [Mass/Vol] 0.90 mg/dL 0.20-1.00 [facility] Comment on above: For patients on eltr ombopag therapy, use of Dimension [place] TBIL is not recommended. Cholesterol [Mass/Vol] 171 mg/dL <[address] [facility] Comment on above: <200 mg/dL Desirable 200-240 mg/dL Borderline >240 mg/dL High Risk Protein [Mass/Vol] 6.8 g/dL 6.4-8.2 [facility] Triglyceride [Mass/Vol] 96 mg/dL <[address] [facility] Comment on above: The drugs N-Acetylcy steine and Metamizole may falsely depress this assay.Serum Triglycerides Reference Interval Normal <150 mg/dL Borderline high 150 - 199 mg/dL High 200 - 499 mg/dL Very High > or = 500 mg/dL Direct bilirubinOrdered By: Marcelino Arizmendi on 10-22-2023 Bilirubin.direct [Mass/Vol] 0.19 mg/dL 0.00-0.[address] [facility] Laboratory - Chemistry and C hemistry - challengeOrdered By: Marcelino Arizmendi on 10-22-2023 ALP [Catalytic activity/Vol] 65 U/L 45-[address] [facility] ALT [Catalytic activity/Vol] 16 U/L 16-[address] [facility] Cholesterol in HDL [Mass/Vol] 47 mg/dL >[address] [facility] Comment on above: The drugs N-Acetylcy steine and Metamizole may falsely depress this assay. Reference Range HDL <40 mg/dL Low HDL Cholesterol HDL >or= 60 mg/dL High HDL Cholesterol Cholesterol in LDL [Mass/Vol] 105 mg/dL 0-[address] [facility] Globulin (S) [Mass/Vol] 3.3 g/dL 2.2-4.[address] [facility] No Panel InformationOrdered By: Marcelino Arizmendi on 10-22-2023 VLDL Cholesterol 19 mg/dL 5-[address] [facility] Thin prep Papanicolaou smear with manual screeningOrdered By: Marcelino Arizmendi on 10-22-2023 Thin prep Papanicolaou smear with manual screening 3.5 g/dL 3.2-5.[address] [facility] Thin prep Papanicolaou smear with manual screening 18 U/L 15-[address] [facility] Lab Report: Lipid Profileon 06-19-2017 Cholesterol 79 mg/dL Invalid Interpretation Code 200 [facility] [employer] Work Phone: [phone] HDL Cholesterol 54 mg/dL Invalid Interpretation Code [facility] [employer] Work Phone: [phone] LDL Cholesterol 17 mg/dL Invalid Interpretation Code 0-130 [facility] [employer] Work Phone: [phone] Triglyceride 40 mg/dL Invalid Interpretation Code [facility] Work Phone: [phone] very low density lipoproteins 8 mg/dL Invalid Interpretation Code 5-40 [facility] [employer] Work Phone: [phone] Lab Report: Liver Profileon 06-19-2017 Alanine aminotransferase (ALT) 21 U/L Invalid Interpretation Code 1278 [facility] Work Phone: [phone] Albumin 3.6 g/dL Invalid Interpretation Code 3.4-5.0 [employer] Work Phone: [phone] Alkaline phosphatase (ALP) 83 U/L Invalid Interpretation Code 45-117 [employer] Work Phone: [phone] Aspartate aminotransferase (AST) 25 U/L Invalid Interpretation Code 15-37 [employer] Work Phone: [phone] Bilirubin (direct) 0.30 mg/dL Invalid Interpretation Code 0.00-0.30 [employer] Work Phone: [phone] Bilirubin (total) 1.00 mg/dL Invalid Interpretation Code 0.20-1.00 [employer] Work Phone: [phone] Globulin 2.8 g/dL Invalid Interpretation Code 2.2-4.2 [employer] Phone: [phone] Protein 6.4 g/dL Invalid Interpretation Code 6.4-8.2 [employer] Phone: [phone] Office Visiton 12-19-2016 Documentation of current medications (procedure) Done Invalid Interpretation Code [employer] Work Phone: [phone] Fall risk assessment No Invalid Interpretation Code [employer] Work Phone: [phone] Protein mass conc Done [employer] Work Phone: [phone] Lab Report: Lipid Profileon 12-06-2016 Cholesterol 87 mg/dL Invalid Interpretation Code 200 [employer] Work Phone: [phone] HDL Cholesterol 49 mg/dL Invalid Interpretation Code [employer] Work Phone: [phone] LDL Cholesterol 23 mg/dL Invalid Interpretation Code 0-130 [employer] Work Phone: [phone] Triglyceride 73 mg/dL Invalid Interpretation Code [employer] Work Phone: [phone] very low density lipoproteins 15 mg/dL Invalid Interpretation Code 5-40 [employer] Work Phone: [phone] Lab Report: Liver Profileon 12-06-2016 Alanine aminotransferase (ALT) 20 U/L Invalid Interpretation Code 12-78 [employer] Work Phone: [phone] Albumin 3.6 g/dL Invalid Interpretation Code 3.4-5.0 [employer] Work Phone: [phone] Alkaline phosphatase (ALP) 77 U/L Invalid Interpretation Code 45-117 [employer] Work Phone: [phone] ALP (Bld) [Catalytic activity/Vol] 77 U/L 45-117 [employer] Work Phone: [phone] Aspartate aminotransferase (AST) 20 U/L Invalid Interpretation Code 15-37 [employer] Work Phone: [phone] Bilirubin (direct) 0.24 mg/dL Invalid Interpretation Code 0.00-0.30 [employer] Work Phone: [phone] Bilirubin (total) 0.90 mg/dL Invalid Interpretation Code 0.20-1.00 [employer] Work Phone: [phone] Globulin 2.9 g/dL Invalid Interpretation Code 2.3-3.5 [employer] Work Phone: [phone] Globulin (S) [Mass/Vol] 2.9 g/dL 2.3-3.5 [employer] Work Phone: [phone] Protein 6.5 g/dL Invalid Interpretation Code 6.4-8.2 [employer] Work Phone: [phone] Office Visiton 12-19-2015 Documentation of current medications (procedure) Done Invalid Interpretation Code [employer] Work Phone: [phone] Clinical Lists Update: 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 12-13-2015 Left ventricular Ejection fraction 30 % Invalid Interpretation Code [employer] Work Phone: [phone] Lab Report: Basic Metabolic Profile (BMP)on 06-20-2015 Anion gap 8 mmol/L Invalid Interpretation Code 5-15 [facility] Work Phone: [phone] Anion gap [Moles/Vol] 8 mmol/L 5-15 [facility] Work Phone: [phone] BUN/Creatinine Ratio 17.5 RATIO Invalid Interpretation Code 10-20 [employer] Work Phone: [phone] Calcium 8.6 mg/dL Invalid Interpretation Code 8.5-10.1 [employer] Work Phone: [phone] Chloride 106 mmol/L Invalid Interpretation Code 98-107 [facility] Work Phone: [phone] CO2 27.0 mmol/L Invalid Interpretation Code 21.0-32.0 [facility] Work Phone: [phone] CO2 (BldV) [Partial pressure] 27.0 mmol/L 21.0-32.0 [facility] Work Phone: [phone] Creatinine 0.91 mg/dL Invalid Interpretation Code 0.70-1.30 [facility] Work Phone: [phone] eGFR (non-black) 87 mL/min/{1.73_m2} Invalid Interpretation Code >60 [facility] Work Phone: [phone] eGFR (non-black) 105 mL/min/{1.73_m2} Invalid Interpretation Code >60 [facility] Work Phone: [phone] EST GFR - AA 105 mL/min >60 [facility] Work Phone: [phone] Glucose 87 mg/dL Invalid Interpretation Code 70-110 [facility] Work Phone: [phone] Glucose [Mass/Vol] 87 mg/dL Invalid Interpretation Code 70-110 [facility] Work Phone: [phone] Potassium 4.3 mmol/L Invalid Interpretation Code 3.5-5.1 [facility] Work Phone: [phone] Sodium 141 mmol/L Invalid Interpretation Code 136-145 [facility] Work Phone: [phone] Urea nitrogen 16 mg/dL Invalid Interpretation Code 7-18 [facility] Work Phone: [phone] Lab Report: CBC W/Diff, Auto matedon 06-20-2015 Absolute Neut 3.2 X10 3/UL Invalid Interpretation Code 2.0-7.7 [facility] Work Phone: [phone] Basophils/100 leukocytes 0.2 % Invalid Interpretation Code 0-1 [facility] Work Phone: [phone] Basophils/100 WBC (Bld) 0.2 % 0-1 [facility] Work Phone: [phone] Eosinophils/100 leukocytes 1.1 % Invalid Interpretation Code 0-5 [facility] Work Phone: [phone] Eosinophils/100 WBC (Bld) 1.1 % 0-5 [facility] Work Phone: [phone] Erythrocyte distribution width (RBC) [Ratio] 43.2 fL 35.1-43.9 [facility] Work Phone: [phone] Erythrocyte distribution width (RBC) [Ratio] 12.1 % 11.6-14.6 [facility] Work [phone] Erythrocytes (RBC) 4.22 10*6/uL Low 4.6-6.[address] [facility] Work Phone: [phone] Hematocrit (Bld) [Volume fraction] 41.8 % 40-54 [facility] Work Phone: [phone] Hematocrit (HCT) 41.8 % Invalid Interpretation Code 40-54 [facility] Work Phone: [phone] Hemoglobin (HGB) 14.1 g/dL Invalid Interpretation Code 13.0-16.5 [facility] Work Phone: [phone] Immature granulocytes (Bld) [#/Vol] 0.200 % 0.0-0.9 [facility] Work Phone: [phone] immature granulocytes, percentage of total cells, blood 0.200 % Invalid Interpretation Code 0.0-0.9 [facility] Work Phone: [phone] Immature granulocytes/100 WBC (Bld) 0.200 % Invalid Interpretation Code 0.0-0.9 [facility] Work Phone: [phone] Lymphocytes 0.80 X10 3/UL Low 0.83-4.51 [facility] Work Phone: [phone] Lymphocytes (Bld) [#/Vol] 0.80 X10 3/UL Low 0.83-4.51 [facility] Work Phone: [phone] Lymphocytes/100 leukocytes 18.2 % Low 19-41 [facility] Work Phone: [phone] Lymphocytes/100 WBC (Bld) 18.2 % Low 19-41 [facility] Work Phone: [phone] MCH 33.4 pg High 27.0-32.0 [facility] Work Phone: [phone] MCH (RBC) [Entitic mass] 33.4 pg High 27.0-32.0 [facility] Work Phone: [phone] MCHC 33.7 G/GL Invalid Interpretation Code 32-36 [facility] Work Phone: [phone] MCHC (RBC) [Mass/Vol] 33.7 G/GL 32-36 [facility] Work Phone: [phone] MCV 99.1 fL High 80-94 [facility] Work Phone: [phone] MCV (RBC) [Entitic vol] 99.1 fL High 80-94 [facility] Work Phone: [phone] Monocytes/100 leukocytes 8.4 % Invalid Interpretation Code 0-10 [facility] Work Phone: [phone] Monocytes/100 WBC (Bld) 8.4 % 0-10 [facility] Work Phone: [phone] neutrophil count, blood 3.2 X10 3/UL Invalid Interpretation Code 2.0-7.7 [facility] Work Phone: [phone] Neutrophils (Bld) [#/Vol] 3.2 X10 3/UL 2.0-7.7 [facility] Work Phone: [phone] Neutrophils/100 leukocytes 71.9 % High 47-70 [facility] Work Phone: [phone] Neutrophils/100 WBC (Bld) 71.9 % High 47-70 [facility] Work Phone: [phone] Platelet mean volume (Bld) [Entitic vol] 12.4 fL High 6.2-12.0 [facility] Work Phone: [phone] Platelets 112 10*3/mm3 Low 150-450 [facility] Work Phone: [phone] Platelets (Bld) [#/Vol] 112 10*3/mm3 Low 150-450 [facility] Work Phone: [phone] PMV by Macarena 12.4 fL High 6.2-12.0 [facility] Work Phone: [phone] RBC (Bld) [#/Vol] 4.22 10*6/uL Low 4.6-6.2 [facility] Work Phone: [phone] RDW SD 43.2 fL Invalid Interpretation Code 35.1-43.9 [facility] Work Phone: [phone] RDW-CA 12.1 % Invalid Interpretation Code 11.6-14.6 [facility] Work Phone: [phone] red blood cell distribution width, size density 43.2 fL Invalid Interpretation Code 35.1-43.9 [facility] Work Phone: [phone] WBC (Bld) [#/Vol] 4.4 10*3/uL 4.4-11.0 [facility] Work Phone: [phone] WBC (Leukocytes) 4.4 10*3/uL Invalid Interpretation Code 4.4-11.0 [facility] [employer] Work Phone: [phone] Office Visit: [facility] 06-20-20 15 Tobacco smoking status TNIS Tobacco smoking status TNIS Invalid Interpretation Code [facility] Work Phone: [phone] Tobacco smoking status [facility] Never smoker [employer] Work Phone: [phone] Tobacco use [facility] Never smoker Invalid Interpretation Code [facility] Phone: [phone] Replaced Document: Carrie Segundo 06-20-2015 EKG QRS axis -27 deg Invalid Interpretation Code [employer] Work Phone: [phone] electrocardiogram interpretation Marked sinus Bradycardia -Anterior infarct -age undetermined. - Negative T-waves -Possible Anterolateral ischemia. ABNORMAL Invalid Interpretation Code [employer] Work Phone: [phone] GE use only - for [employer] import when terms are not otherwise specified 412 ms Invalid Interpretation Code [employer] Work Phone: [phone] Interpretation Marked sinus Bradycardia -Anterior infarct -age undetermined. - Negative T-waves -Possible Anterolateral ischemia. ABNORMAL Invalid Interpretation Code [employer] Work Phone: [phone] P [place] 67 deg Invalid Interpretation Code [employer] Work Phone: [phone] P wave axis, electrocardiogram 67 deg Invalid Interpretation Code [employer] Work Phone: [phone] TX Interval 174 ms Invalid Interpretation Code [facility] Work Phone: [phone] TX interval, electrocardiogram 174 ms Invalid Interpretation Code [facility] Work Phone: [phone] Pulse (Heart Rate) 47 /min Invalid Interpretation Code [facility] Work Phone: [phone] QRS axis, electrocardiogram -27 deg Invalid Interpretation Code [facility] Work Phone: [phone] QRS Duration 96 ms Invalid Interpretation Code [facility] Work Phone: [phone] QRS duration, electrocardiogram 96 ms Invalid Interpretation Code [facility] Work Phone: [phone] QT Interval new path ms Invalid Interpretation Code [facility] Work Phone: [phone] QT interval, electrocardiogram new path ms Invalid Interpretation Code [facility] Work Phone: [phone] QTc [place] 412 ms Invalid Interpretation Code [facility] Work Phone: [phone] T [place] 90 deg Invalid Interpretation Code [facility] Work Phone: [phone] T wave axis, electrocardiogram 90 deg Invalid Interpretation Code [facility] Work Phone: [phone] Office Visit: [facility] 06-13-20 14 cardiac risk group C Invalid Interpretation Code [facility] Work Phone: [phone] General cardiovascular disease 10Y risk [#] Suzanne.Hector'Shalini N/A Invalid Interpretation Code [facility] Work Phone: [phone] LDL target level 100 mg/dL Invalid Interpretation Code [facility] Work Phone: [phone] Lab Report: PTon 07-20-2012 INR Coag (PPP) [Relative time] 1.2 {INR} Normal [facility] Work Phone: [phone] INR in blood by coagulation 1.2 {INR} Normal [facility] Work Phone: [phone] prothrombin time, actual/normal, ratio 14.0 SECONDS Normal 11.9-14.4 [facility] Work Phone: [phone] PTP 14.0 SECONDS Normal 11.9-14.4 [facility] Work Phone: [phone] Lab Report: UAon 07-20-2012 specific gravity, urine 1.020 Normal 1.002-1.030 [facility] [employer] Work Phone: Replaced Document: Carrie Ronquilloon 07-15-2012 Pulse (Heart Rate) 471 ms Invalid Interpretation Code [employer] Phone: Vital Signs Date Time Vital Sign Value Performing Clinician Dorothy lucero 12-01-2024 14:19-0400 Body height 172.72 cm No Primary Care Physician [facility] 12-01-2024 14:17-0400 Body mass index (BMI) [Ratio] 21.1 kg/m2 No Primary Care Physician [facility] 12-01-2024 14:17-0400 Body weight 63.04 kg No Primary Care Physician [facility] 12-01-2024 14:17-0400 Diastolic blood pressure 82 mm[Hg] No Primary Care Physician [facility] 12-01-2024 14:17-0400 Heart rate 49 /min No Primary Care Physician [facility] 12-01-2024 14:17-0400 Respiratory rate 18 /min No Primary Care Physician [facility] 12-01-2024 14:17-0400 SaO2% (BldA) [Mass fraction] 98 % No Primary Care Physician [facility] 12-01-2024 14:17-0400 Systolic blood pressure 140 mm[Hg] No Primary Care Physician [facility] 11-10-2023 15:29-0400 Body height 172.72 cm No Primary Care Physician [facility] 11-10-2023 15:20-0400 Body mass index (BMI) [Ratio] 20.7 kg/m2 No Primary Care Physician [facility] 11-10-2023 15:20-0400 Body weight 61.68 kg No Primary Care Physician [facility] 11-10-2023 15:20-0400 Diastolic blood pressure 80 mm[Hg] No Primary Care Physician [facility] 11-10-2023 15:20-0400 Heart rate 64 /min No Primary Care Physician [facility] 11-10-2023 15:20-0400 Respiratory rate 16 /min No Primary Care Physician [facility] 11-10-2023 15:20-0400 Systolic blood pressure 135 mm[Hg] No Primary Care Physician [facility] 07-17-2023 13:46-0500 Body height 172.72 cm No Primary Care Physician [facility] 07-17-2023 13:46-0500 Body mass index (BMI) [Ratio] 21.2 kg/m2 No Primary Care Physician [facility] 07-17-2023 13:46-0500 Body weight 63.5 kg No Primary Care Physician [facility] 07-17-2023 13:46-0500 Diastolic blood pressure 88 mm[Hg] No Primary Care Physician [facility] 07-17-2023 13:46-0500 Heart rate 62 /min No Primary Care Physician [facility] 07-17-2023 13:46-0500 Respiratory rate 16 /min No Primary Care Physician [facility] 07-17-2023 13:46-0500 Systolic blood pressure 169 mm[Hg] No Primary Care Physician [facility] 12-19-2016 12:52-0400 BMI (Body Mass Index) 20.77 kg/m2 [facility] Work Phone: 12-19-2016 12:52-0400 Body weight 58.38 kg Saritha Ram [facility] Work Phone: 12-19-2016 12:52-0400 BP Diastolic 62 mm[Hg] Alisia Vasquez [facility] Work Phone: 12-19-2016 12:52-0400 BP Systolic 120 mm[Hg] Alisiavirgen Vasquez [facility] Work Phone: 12-19-2016 12:52-0400 Height 167.64 cm Alisia Vasquez [facility] Work Phone: 12-19-2016 12:52-0400 Pulse (Heart Rate) 58 /min [facility] Work Phone: 12-19-2016 12:52-0400 Respiratory Rate 16 /min Alisia Vasquez [facility] Work Phone: 12-19-2016 12:52-0400 Weight 58.38 kg Alisia Vasquez [facility] Work Phone: 06-18-2016 13:02-0500 BMI (Body Mass Index) 21.14 kg/m2 MD [facility] Work Phone: 06-18-2016 13:02-0500 BP Diastolic 78 mm[Hg] MD [facility] Work Phone: 06-18-2016 13:02-0500 BP Systolic 130 mm[Hg] MD [facility] Work Phone: 06-18-2016 13:02-0500 BSA (Body Surface Area) 1.67 m2 MD [facility] Work Phone: 06-18-2016 13:02-0500 Pulse (Heart Rate) 60 /min MD [facility] Work Phone: 06-18-2016 13:02-0500 Respiratory Rate 16 /min Wolfgang Conde MD [facility] Work Phone: 06-18-2016 13:02-0500 Weight 59.42 kg Wolfgang Conde MD [facility] Work Phone: 06-20-2015 13:01-0500 Heart rate 47 /min Harken [facility] Work Phone: 07-27-2012 14:18-0500 Body Temperature 96.9 [degF] Wolfgang Conde MD [facility] Work Phone: 07-15-2012 10:40-0500 Heart rate 471 ms Saritha Ram [facility] Work Phone: 10-11-2011 11:14-0400 Height 167.64 cm MD [facility] Work Phone: Encounters Encounter Date Encounter Type Care Provider Facility Start: 12-01-2024 End: 12-01-2024 ambulatory No Primary Care Physician [facility] Work Phone: Start: 12-01-2024 End: 12-01-2024 Patient encounter procedure Marcelino MARIN [facility] Work Phone: Start: 05-10-2024 End: 05-10-2024 ambulatory Wolfgang Elton Facility:[facility] Start: 03-05-2024 End: 03-05-2024 ambulatory Wolfgang Elton Facility:[facility] Start: 11-12-2023 End: 11-12-2023 Non-patient / Non-visit No Primary Care Physician [facility] Start: 11-10-2023 End: 11-10-2023 ambulatory No Primary Care Physician [facility] Work Phone: Start: 11-10-2023 End: 11-10-2023 Patient encounter procedure No Primary Care Physician [facility] Work Phone: Start: 11-10-2023 End: 11-10-2023 Patient encounter procedure No Primary Care Physician [facility] Work Phone: Start: 10-22-2023 End: 10-22-2023 ambulatory No Primary Care Physician [facility] Work Phone: Start: 10-22-2023 End: 10-22-2023 Patient encounter procedure No Primary Care Physician [facility] Work Phone: Start: 07-17-2023 End: 07-17-2023 Patient encounter procedure No Primary Care Physician [facility] Work Phone: Procedures Date Procedure Procedure Detail Performing Clinician Start: 06-12-2017 End: 06-19-2017 *Hepatic Function Panel Gwen Rivera Start: 06-12-2017 End: 06-19-2017 Lipid 1996 panel - Serum or Plasma Wolfgang Conde MD Start: 04-04-2017 End: 04-05-2017 Prgrmg eval implantable in prsn dual lead dfb Wolfgang Conde MD Start: 04-04-2017 End: 04-05-2017 Icd device progr eval, dual Wolfgang Conde MD Start: 12-27-2016 End: 12-27-2016 Prgrmg eval implantable in prsn dual lead dfb Deepak Dawson MD Start: 12-27-2016 End: 12-27-2016 Icd device progr eval, dual Deepak Dawson MD Start: 12-19-2016 End: 12-19-2016 Follow Up Appt 6 months Gwen Rivera Start: 12-19-2016 End: 12-19-2016 KONRAD Conde MD Start: 12-19-2016 End: 12-19-2016 Documentation of current medications Saritha Leanna Start: 12-19-2016 End: 12-19-2016 Follow Up Appt 6 months Gwen Rivera Start: 12-19-2016 End: 12-19-2016 KONRAD Conde MD Start: 09-16-2016 End: 12-19-2016 Follow Up Appt 3 months Jeimy Huang PA-C Work Phone: Start: 09-16-2016 End: 12-19-2016 [facility] Jeimy Huang PA-C Work Phone: Start: 09-16-2016 End: 09-16-2016 Prgrmg eval implantable in prsn dual lead dfb Jeimy Huang PA-C Work Phone: Start: 09-16-2016 End: 12-19-2016 Follow Up Appt 3 months Jeimy Huang PA-C Work Phone: Start: 09-16-2016 End: 09-16-2016 Icd device progr eval, dual Jeimy Huang PA-C Work Phone: Start: 09-16-2016 End: 12-19-2016 Pac[facility] Clinic Jeimy Huang PA-C Work Phone: Start: 08-19-2016 End: 12-10-2016 *Hepatic Function Panel Gwen Rivera Start: 08-19-2016 End: 12-10-2016 Lipid 1996 panel - Serum or Plasma Wolfgang Conde MD Start: 08-19-2016 End: 12-10-2016 *Hepatic Function Panel Gwen Rivera Start: 08-19-2016 End: 12-10-2016 Lipid panel [AGGREGATE] Gwen Rivera Start: 06-18-2016 End: 06-18-2016 MIGUEL Huang PA-C Work Phone: Start: 06-18-2016 End: 12-19-2016 Follow Up Appt 3 months Gwen Rivera Start: 06-18-2016 End: 06-18-2016 Follow Up Appt 6 months Jeimy Huang PA-C Work Phone: Start: 06-18-2016 End: 12-19-2016 [facility] Clinic Wolfgang Conde MD Start: 06-18-2016 End: 07-04-2016 Prgrmg eval implantable in prsn dual lead dfb Wolfgang Conde MD Start: 06-18-2016 End: 06-18-2016 MIGUEL Huang PA-C Work Phone: Start: 06-18-2016 End: 12-19-2016 Follow Up Appt 3 months Gwen Rivera Start: 06-18-2016 End: 06-18-2016 Follow Up Appt 6 months Jeimy Huang PA-C Work Phone: Start: 06-18-2016 End: 07-04-2016 Icd device progr eval, dual Wolfgang Conde MD Start: 06-18-2016 End: 12-19-2016 [facility] Clinic Wolfgang Conde MD Start: 03-19-2016 End: 06-11-2016 Follow Up Appt 3 months Gwen Rivera Start: 03-19-2016 End: 06-11-2016 [facility] Clinic Wolfgang Conde MD Start: 03-19-2016 End: 03-19-2016 Prgrmg eval implantable in prsn dual lead dfb Wolfgang Conde MD Start: 03-19-2016 End: 06-11-2016 Follow Up Appt 3 months Gwen Rivera Start: 03-19-2016 End: 03-19-2016 Icd device progr eval, dual Wolfgang Conde MD Start: 03-19-2016 End: 06-11-2016 [facility] Clinic Wolfgang Conde MD Start: 02-06-2016 End: 02-21-2016 *Hepatic Function Panel Gwen Rivera Start: 02-06-2016 End: 02-21-2016 Lipid 1996 panel - Serum or Plasma Wolfgang Conde MD Start: 02-06-2016 End: 02-21-2016 *Hepatic Function Panel Gwen Rivera Start: 02-06-2016 End: 02-21-2016 Lipid panel [AGGREGATE] Gwen Rivera Start: 12-19-2015 End: 06-11-2016 Follow Up Appt 3 months Gwen Rivera Start: 12-19-2015 End: 12-19-2015 Follow Up Appt 6 months Gwen Rivera Start: 12-19-2015 End: 12-19-2015 KONRAD Conde MD Start: 12-19-2015 End: 06-11-2016 [facility] Wolfgang Conde MD Start: 12-19-2015 End: 12-19-2015 Prgrmg eval implantable in prsn dual lead dfb Wolfgang Conde MD Start: 12-19-2015 End: 06-11-2016 Follow Up Appt 3 months Gwen Rivera Start: 12-19-2015 End: 12-19-2015 Follow Up Appt 6 months Gwen Rivera Start: 12-19-2015 End: 12-19-2015 Icd device progr eval, dual Wolfgang Conde MD Start: 12-19-2015 End: 12-19-2015 KONRAD Conde MD Start: 12-19-2015 End: 06-11-2016 [facility] Wolfgang Conde MD Start: 09-04-2015 End: 06-11-2016 Follow Up Appt 3 months Jeimy Huang PA-C Work Phone: Start: 09-04-2015 End: 06-11-2016 [facility] Jeimy Huang PA-C Work Phone: Start: 09-04-2015 End: 09-04-2015 Prgrmg eval implantable in prsn dual lead dfb Jeimy Huang PA-C Work Phone: Start: 09-04-2015 End: 06-11-2016 Follow Up Appt 3 months Jeimy Huang PA-C Work Phone: Start: 09-04-2015 End: 09-04-2015 Icd device progr eval, dual Jeimy Huang PA-C Work Phone: Start: 09-04-2015 End: 06-11-2016 [facility] Jeimy Huang PA-C Work Phone: Start: 07-14-2015 End: 08-07-2015 *Hepatic Function Panel Gwen Rivera Start: 07-14-2015 End: 08-07-2015 Lipid 1996 panel - Serum or Plasma Wolfgang Conde MD Start: 07-14-2015 End: 08-07-2015 *Hepatic Function Panel Gwen Rivera Start: 07-14-2015 End: 08-07-2015 Lipid panel [AGGREGATE] Gwen Rivera Start: 06-20-2015 End: 06-20-2015 *BMP Jeimy Huang PA-C Work Phone: Start: 06-20-2015 End: 06-20-2015 *CBC with Differential Jeimy Huang PA-C Work Phone: Start: 06-20-2015 End: 06-20-2015 [employer] SUPERVIS[employer] Jeimy Huang PA-C Work Phone: Start: 06-20-2015 End: 06-20-2015 Ecg routine ecg w/least 12 lds w/i&r Jeimy Huang PA-C Work Phone: Start: 06-20-2015 End: 06-20-2015 Follow Up Appt 6 months Jeimy Huang PA-C Work Phone: Start: 06-20-2015 End: 07-03-2015 Nuclear stress test -Lexiscan Jeimy Huang PA-C Work Phone: Start: 06-20-2015 End: 06-20-2015 *BMP Jeimy Huang PA-C Work Phone: Start: 06-20-2015 End: 06-20-2015 *CBC with Differential Jeimy Huang PA-C Work Phone: Start: 06-20-2015 End: 06-20-2015 [employer] SUPERVISOR Jeimy Huang PA-C Work Phone: Start: 06-20-2015 End: 06-20-2015 Electrocardiogram, complete Jeimy Huang PA-C Work Phone: Start: 06-20-2015 End: 06-20-2015 Follow Up Appt 6 months Jeimy Huang PA-C Work Phone: Start: 06-20-2015 End: 07-03-2015 Nuclear stress test -Lexiscan Jeimy Huang PA-C Work Phone: Start: 05-30-2015 End: 06-13-2015 Follow Up Appt 3 months Gwen Rivera Start: 05-30-2015 End: 06-13-2015 [facility] Clinic Wolfgang Conde MD Start: 05-30-2015 End: 05-31-2015 Prgrmg eval implantable in prsn dual lead dfb Wolfgang Conde MD Start: 05-30-2015 End: 06-13-2015 Follow Up Appt 3 months Gwen Rivera Start: 05-30-2015 End: 05-31-2015 Icd device progr eval, dual Wolfgang Conde MD Start: 05-30-2015 End: 06-13-2015 [facility] Clinic Wolfgang Conde MD Start: 02-28-2015 End: 06-13-2015 Follow Up Appt 3 months Gwen Rivera Start: 02-28-2015 End: 06-13-2015 [facility] Clinic Wolfgang Conde MD Start: 02-28-2015 End: 02-28-2015 Prgrmg eval implantable in prsn dual lead dfb Wolfgang Conde MD Start: 02-28-2015 End: 06-13-2015 Follow Up Appt 3 months Gwen Rivera Start: 02-28-2015 End: 02-28-2015 Icd device progr eval, dual Wolfgang Conde MD Start: 02-28-2015 End: 06-13-2015 [facility] Wolfgang Conde MD Start: 01-10-2015 End: 01-10-2015 *Hepatic Function Panel Jeimy Huang PA-C Work Phone: Start: 01-10-2015 End: 01-10-2015 Lipid 1996 panel - Serum or Plasma Jeimy Huang PA-C Work Phone: Start: 01-10-2015 End: 01-10-2015 *Hepatic Function Panel Jeimy Huang PA-C Work Phone: Start: 01-10-2015 End: 01-10-2015 Lipid panel [AGGREGATE] Jeimy Huang PA-C Work Phone: Start: 12-20-2014 End: 12-21-2014 Documentation of current medications Wolfgang Conde MD Start: 12-20-2014 End: 12-20-2014 Follow Up Appt 6 months Gwen Rivera Start: 12-20-2014 End: 12-20-2014 MMM Wolfgang Conde MD Start: 12-20-2014 End: 12-21-2014 Documentation of current medications Wolfgang Conde MD Start: 12-20-2014 End: 12-20-2014 Follow Up Appt 6 months Gwen Rivera Start: 12-20-2014 End: 12-20-2014 KONRAD Conde MD Start: 11-21-2014 End: 06-13-2015 Follow Up Appt 3 months Jeimy Huang PA-C Work Phone: Start: 11-21-2014 End: 06-13-2015 [facility] Clinic Jeimy Huang PA-C Work Phone: Start: 11-21-2014 End: 11-21-2014 Prgrmg eval implantable in prsn dual lead dfb Jeimy Huang PA-C Work Phone: Start: 11-21-2014 End: 06-13-2015 Follow Up Appt 3 months Jeimy Huang PA-C Work Phone: Start: 11-21-2014 End: 11-21-2014 Icd device progr eval, dual Jeimy Huang PA-C Work Phone: Start: 11-21-2014 End: 06-13-2015 [facility] Jeimy Huang PA-C Work Phone: Start: 08-19-2014 End: 06-13-2015 Follow Up Appt 3 months Jeimy Huang PA-C Work Phone: Start: 08-19-2014 End: 06-13-2015 [facility] Jeimy Huang PA-C Work Phone: Start: 08-19-2014 End: 08-19-2014 Prgrmg eval implantable in prsn dual lead dfb Jeimy Huang PA-C Work Phone: Start: 08-19-2014 End: 06-13-2015 Follow Up Appt 3 months Jeimy Huang PA-C Work Phone: Start: 08-19-2014 End: 08-19-2014 Icd device progr eval, dual Jeimy Huang PA-C Work Phone: Start: 08-19-2014 End: 06-13-2015 [facility] Jeimy Huang PA-C Work Phone: Start: 06-13-2014 End: 06-13-2014 *Hepatic Function Panel Jeimy Huang PA-C Work Phone: Start: 06-13-2014 End: 06-13-2014 [employer] SUPER[employer] Jeimy Huang PA-C Work Phone: Start: 06-13-2014 End: 06-13-2014 Ecg routine ecg w/least 12 lds w/i&r Jeimy Huang PA-C Work Phone: Start: 06-13-2014 End: 06-13-2014 Follow Up Appt 6 months Jeimy Huang PA-C Work Phone: Start: 06-13-2014 End: 06-13-2014 Lipid 1996 panel - Serum or Plasma Jeimy Huang PA-C Work Phone: Start: 06-13-2014 End: 06-13-2014 *Hepatic Function Panel Jeimy Huang PA-C Work Phone: Start: 06-13-2014 End: 06-13-2014 [employer] SUPERVIS[employer] Jeimy Huang PA-C Work Phone: Start: 06-13-2014 End: 06-13-2014 Electrocardiogram, complete Jeimy Huang PA-C Work Phone: Start: 06-13-2014 End: 06-13-2014 Follow Up Appt 6 months Jeimy Huang PA-C Work Phone: Start: 06-13-2014 End: 06-13-2014 Lipid panel [AGGREGATE] Jeimy Huang PA-C Work Phone: Start: 05-18-2014 End: 05-31-2014 Follow Up Appt 3 months Gwen Rivera Start: 05-18-2014 End: 05-31-2014 Pac[facility] Clinic Wolfgang Conde MD Start: 05-18-2014 End: 05-18-2014 Prgrmg eval implantable in person multi lead dfb Wolfgang Conde MD Start: 05-18-2014 End: 05-31-2014 Follow Up Appt 3 months Gwen Rivera Start: 05-18-2014 End: 05-18-2014 Icd device progr eval, mult Wolfgang Conde MD Start: 05-18-2014 End: 05-31-2014 [facility] Clinic Wolfgang Conde MD Start: 02-14-2014 End: 05-31-2014 Follow Up Appt 3 months Jeimy Huang PA-C Work Phone: Start: 02-14-2014 End: 05-31-2014 Pac[facility] Clinic Jeimy Huang PA-C Work Phone: Start: 02-14-2014 End: 02-14-2014 Prgrmg eval implantable in prsn dual lead dfb Jeimy Huang PA-C Work Phone: Start: 02-14-2014 End: 05-31-2014 Follow Up Appt 3 months Jeimy Huang PA-C Work Phone: Start: 02-14-2014 End: 02-14-2014 Icd device progr eval, dual Jeimy Huang PA-C Work Phone: Start: 02-14-2014 End: 05-31-2014 Pac[facility] Clinic Jeimy Huang PA-C Work Phone: Start: 12-14-2013 End: 12-14-2013 Follow Up Appt 6 months Gwen Rivera Start: 12-14-2013 End: 12-14-2013 KONRAD Conde MD Start: 12-14-2013 End: 12-14-2013 Follow Up Appt 6 months Gwen Rivera Start: 12-14-2013 End: 12-14-2013 [facility] Wolfgang Conde MD Start: 12-12-2013 End: 12-14-2013 *Hepatic Function Panel Jeimy Huang PA-C Work Phone: Start: 12-12-2013 End: 12-14-2013 Lipid 1996 panel - Serum or Plasma Jeimy Huang PA-C Work Phone: Start: 12-12-2013 End: 12-14-2013 *Hepatic Function Panel Jeimy Huang PA-C Work Phone: Start: 12-12-2013 End: 12-14-2013 Lipid panel [AGGREGATE] Jeimy Huang PA-C Work Phone: Start: 11-16-2013 End: 05-31-2014 Follow Up Appt 3 months Jeimy Huang PA-C Work Phone: Start: 11-16-2013 End: 05-31-2014 Pac[facility] Clinic Jeimy Huang PA-C Work Phone: Start: 11-16-2013 End: 11-16-2013 Prgrmg eval implantable in prsn dual lead dfb Jeimy Huang PA-C Work Phone: Start: 11-16-2013 End: 05-31-2014 Follow Up Appt 3 months Jeimy Huang PA-C Work Phone: Start: 11-16-2013 End: 11-16-2013 Icd device progr eval, dual Jeimy Huang PA-C Work Phone: Start: 11-16-2013 End: 05-31-2014 Pac[facility] Clinic Jeimy Huang PA-C Work Phone: Start: 08-16-2013 End: 12-14-2013 Follow Up Appt 3 months Jeimy Huang PA-C Work Phone: Start: 08-16-2013 End: 12-14-2013 Pac[facility] Clinic Jeimy Huang PA-C Work Phone: Start: 08-16-2013 End: 08-16-2013 Prgrmg eval implantable in prsn dual lead dfb Jeimy Huang PA-C Work Phone: Start: 08-16-2013 End: 12-14-2013 Follow Up Appt 3 months Jeimy Huang PA-C Work Phone: Start: 08-16-2013 End: 08-16-2013 Icd device progr eval, dual Jeimy Huang PA-C Work Phone: Start: 08-16-2013 End: 12-14-2013 [facility] Jeimy Huang PA-C Work Phone: Start: 06-15-2013 End: 06-16-2013 *Hepatic Function Panel Jeimy Huang PA-C Work Phone: Start: 06-15-2013 End: 06-15-2013 [employer] SUPER[employer] Jeimy Huang PA-C Work Phone: Start: 06-15-2013 End: 06-15-2013 Follow Up Appt 6 months Jeimy Huang PA-C Work Phone: Start: 06-15-2013 End: 06-16-2013 Lipid 1996 panel - Serum or Plasma Jeimy Huang PA-C Work Phone: Start: 06-15-2013 End: 06-16-2013 *Hepatic Function Panel Jeimy Huang PA-C Work Phone: Start: 06-15-2013 End: 06-15-2013 [employer] SUPERVIS[employer] Jeimy Huang PA-C Work Phone: Start: 06-15-2013 End: 06-15-2013 Follow Up Appt 6 months Jeimy Huang PA-C Work Phone: Start: 06-15-2013 End: 06-16-2013 Lipid panel [AGGREGATE] Jeimy Huang PA-C Work Phone: Start: 05-14-2013 End: 06-03-2013 Follow Up Appt 3 months Gwen Rivera Start: 05-14-2013 End: 06-03-2013 Pacer Clinic Wolfgang Conde MD Start: 05-14-2013 End: 05-14-2013 Prgrmg eval implantable in prsn dual lead dfb Wolfgang Conde MD Start: 05-14-2013 End: 06-03-2013 Follow Up Appt 3 months Gwen Rivera Start: 05-14-2013 End: 05-14-2013 Icd device progr eval, dual Wolfgang Conde MD Start: 05-14-2013 End: 06-03-2013 [facility] Wolfgang Conde MD Start: 02-10-2013 End: 06-03-2013 Follow Up Appt 3 months Gwne Rivera Start: 02-10-2013 End: 06-03-2013 Pac[facility] Clinic Wolfgang Conde MD Start: 02-10-2013 End: 02-10-2013 Prgrmg eval implantable in prsn dual lead dfb Wolfgang Conde MD Start: 02-10-2013 End: 06-03-2013 Follow Up Appt 3 months Gwen Rivera Start: 02-10-2013 End: 02-10-2013 Icd device progr eval, dual Wolfgang Conde MD Start: 02-10-2013 End: 06-03-2013 Pac[facility] Clinic Wolfgang Conde MD Start: 12-17-2012 End: 12-17-2012 Follow Up Appt 6 months Gwen Rivera Start: 12-17-2012 End: 12-17-2012 KONRAD Conde MD Start: 12-17-2012 End: 12-17-2012 Follow Up Appt 6 months Gwen Rivera Start: 12-17-2012 End: 12-17-2012 MMGwen Conde MD Start: 11-11-2012 End: 06-16-2013 *Hepatic Function Panel Gwen Rivera Start: 11-11-2012 End: 06-16-2013 Lipid 1996 panel - Serum or Plasma Wolfgang Conde MD Start: 11-11-2012 End: 06-16-2013 *Hepatic Function Panel Gwen Rivera Start: 11-11-2012 End: 06-16-2013 Lipid panel [AGGREGATE] Gwen Rivera Start: 11-10-2012 End: 06-03-2013 Follow Up Appt 3 months Gwen Rivera Start: 11-10-2012 End: 06-03-2013 Pacer Clinic Wolfgang Conde MD Start: 11-10-2012 End: 11-10-2012 Prgrmg eval implantable in prsn dual lead dfb Wolfgang Conde MD Start: 11-10-2012 End: 06-03-2013 Follow Up Appt 3 months Gwen Rivera Start: 11-10-2012 End: 11-10-2012 Icd device progr eval, dual Wolfgang Conde MD Start: 11-10-2012 End: 06-03-2013 Pacer Clinic Wolfgang Conde MD Start: 07-15-2012 End: 07-15-2012 Ecg routine ecg w/least 12 lds w/i&r Wolfgang Conde MD Start: 07-15-2012 End: 07-15-2012 Electrocardiogram, complete Wolfgang Conde MD Start: 06-18-2012 End: 06-18-2012 Device Interrogation Wolfgang Conde MD Start: 06-18-2012 End: 06-18-2012 Follow Up Appt 6 months Gwen Rivera Start: 06-18-2012 End: 06-18-2012 Device Interrogation Wolfgang Conde MD Start: 06-18-2012 End: 06-18-2012 Follow Up Appt 6 months Gwen Rivera Start: 06-03-2012 End: 06-10-2012 *Hepatic Function Panel Gwen Rivera Start: 06-03-2012 End: 06-10-2012 Echocardiography Wolfgang Conde MD Start: 06-03-2012 End: 06-03-2012 Follow Up Appt 6 months Gwen Rivera Start: 06-03-2012 End: 06-10-2012 Lipid 1996 panel - Serum or Plasma Wolfgang Conde MD Start: 06-03-2012 End: 06-10-2012 *Hepatic Function Panel Gwen Rivera Start: 06-03-2012 End: 06-10-2012 Echocardiography Wolfgang Conde MD Start: 06-03-2012 End: 06-03-2012 Follow Up Appt 6 months Gwen Rivera Start: 06-03-2012 End: 06-10-2012 Lipid panel [AGGREGATE] Gwen Rivera Start: 10-11-2011 End: 06-03-2012 *Hepatic Function Panel Gwen Rivera Start: 10-11-2011 End: 10-11-2011 Follow Up Appt 6 months Gwen Rivera Start: 10-11-2011 End: 06-03-2012 Lipid 1996 panel - Serum or Plasma Wolfgang Conde MD Start: 10-11-2011 End: 06-03-2012 *Hepatic Function Panel Gwen Rivera Start: 10-11-2011 End: 10-11-2011 Follow Up Appt 6 months Gwen Rivera Start: 10-11-2011 End: 06-03-2012 Lipid panel [AGGREGATE] Gwen Rivera Start: 11-20-2010 Percutaneous translu edgar coronary angioplasty PERCUTANEOUS TRANSLUMINAL CORONARY ANGIOPLASTY, HX OF Saritha Leanna Start: 07-28-2009 History of placement of stent for coronary artery disease History of coronary artery stent placement Marcelino 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 Work Phone: Start: 07-17-2017 End: 07-17-2017 Appointment Appointment [facility] Work Phone: Start: 07-02-2017 End: 07-02-2017 Appointment Appointment [facility] Work Phone: Start: 06-12-2017 End: 06-19-2017 *Hepatic Function Panel *Hepatic Function Panel [facility] Work Phone: Start: 06-12-2017 End: 06-19-2017 Lipid panel [AGGREGATE] *Lipid Profile CC PCP [facility] Work Phone: Start: 06-12-2017 End: 12-20-2016 *Hepatic Function Panel *Hepatic Function Panel [facility] Work Phone: Start: 06-12-2017 End: 12-20-2016 Lipid panel [AGGREGATE] *Lipid Profile CC PCP [facility] Work Phone: Start: 04-04-2017 End: 04-05-2017 Follow Up Appt 3 months Follow Up Appt 3 months [facility] Work Phone: Start: 04-04-2017 End: 04-05-2017 Pacer Clinic [facility] Work Phone: Start: 04-04-2017 End: 04-04-2017 Appointment Appointment [facility] Work Phone: Start: 04-04-2017 End: 04-05-2017 Follow Up Appt 3 months Follow Up Appt 3 months [facility] Work Phone: Start: 04-04-2017 End: 04-05-2017 Pacer Clinic [facility] Work Phone: Start: 12-27-2016 End: 12-27-2016 Follow Up Appt 3 months Follow Up Appt 3 months [facility] Work Phone: Start: 12-27-2016 End: 12-27-2016 Pacer Clinic [facility] Work Phone: Start: 12-27-2016 End: 12-27-2016 Appointment Appointment [facility] Work Phone: Start: 12-27-2016 End: 12-27-2016 Appointment Appointment [facility] Work Phone: Start: 12-27-2016 End: 12-27-2016 Follow Up Appt 3 months Follow Up Appt 3 months [facility] Work Phone: Start: 12-27-2016 End: 12-27-2016 Pacer Clinic [facility] Work Phone: Start: 12-19-2016 End: 12-19-2016 Follow Up Appt 6 months Follow Up Appt 6 months [facility] Work Phone: Start: 12-19-2016 End: 12-19-2016 MMM MMM [facility] Work Phone: Start: 12-19-2016 End: 12-19-2016 Appointment Appointment [facility] Work Phone: Start: 12-19-2016 End: 12-19-2016 Appointment Appointment [facility] Work Phone: Start: 12-19-2016 End: 12-19-2016 Follow Up Appt 6 months Follow Up Appt 6 months [facility] Work Phone: Start: 12-19-2016 End: 12-19-2016 MMM MMM [facility] Work Phone: Start: 09-16-2016 End: 12-19-2016 Follow Up Appt 3 months Follow Up Appt 3 months [facility] Work Phone: Start: 09-16-2016 End: 12-19-2016 Pacer Clinic [facility] Work Phone: Start: 09-16-2016 End: 12-19-2016 Follow Up Appt 3 months Follow Up Appt 3 months [facility] Work Phone: Start: 09-16-2016 End: 12-19-2016 Pacer Clinic [facility] Work Phone: Start: 08-19-2016 End: 12-10-2016 *Hepatic Function Panel *Hepatic Function Panel [facility] Work Phone: Start: 08-19-2016 End: 12-10-2016 Lipid panel [AGGREGATE] *Lipid Profile CC PCP [facility] Work Phone: Start: 08-19-2016 End: 12-10-2016 *Hepatic Function Panel *Hepatic Function Panel [facility] Work Phone: Start: 08-19-2016 End: 12-10-2016 Lipid panel [AGGREGATE] *Lipid Profile CC PCP [facility] Work Phone: Start: 06-18-2016 End: 06-18-2016 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 [facility] Work Phone: Start: 06-18-2016 End: 12-19-2016 Follow Up Appt 3 months Follow Up Appt 3 months [facility] Work Phone: Start: 06-18-2016 End: 06-18-2016 Follow Up Appt 6 months Follow Up Appt 6 months [facility] Work Phone: Start: 06-18-2016 End: 12-19-2016 Pacer Clinic [facility] Work Phone: Start: 06-18-2016 End: 06-18-2016 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 [facility] Work Phone: Start: 06-18-2016 End: 12-19-2016 Follow Up Appt 3 months Follow Up Appt 3 months [facility] Work Phone: Start: 06-18-2016 End: 06-18-2016 Follow Up Appt 6 months Follow Up Appt 6 months [facility] Work Phone: Start: 06-18-2016 End: 12-19-2016 Pacer Clinic [facility] Work Phone: Start: 03-19-2016 End: 06-11-2016 Follow Up Appt 3 months Follow Up Appt 3 months [facility] Work Phone: Start: 03-19-2016 End: 06-11-2016 Pacer Clinic [facility] Work Phone: Start: 03-19-2016 End: 06-11-2016 Follow Up Appt 3 months Follow Up Appt 3 months [facility] Work Phone: Start: 03-19-2016 End: 06-11-2016 Pacer Clinic [facility] Work Phone: Start: 02-06-2016 End: 02-21-2016 *Hepatic Function Panel *Hepatic Function Panel [facility] Work Phone: Start: 02-06-2016 End: 02-21-2016 Lipid panel [AGGREGATE] *Lipid Profile CC PCP [facility] Work Phone: Start: 02-06-2016 End: 02-21-2016 *Hepatic Function Panel *Hepatic Function Panel [facility] Work Phone: Start: 02-06-2016 End: 02-21-2016 Lipid panel [AGGREGATE] *Lipid Profile CC PCP [facility] Work Phone: Start: 12-19-2015 End: 06-11-2016 Follow Up Appt 3 months Follow Up Appt 3 months [facility] Work Phone: Start: 12-19-2015 End: 12-19-2015 Follow Up Appt 6 months Follow Up Appt 6 months [facility] Work Phone: Start: 12-19-2015 End: 12-19-2015 MMM MMM [facility] Work Phone: Start: 12-19-2015 End: 06-11-2016 Pacer Clinic [facility] Work Phone: Start: 12-19-2015 End: 06-11-2016 Follow Up Appt 3 months Follow Up Appt 3 months [facility] Work Phone: Start: 12-19-2015 End: 12-19-2015 Follow Up Appt 6 months Follow Up Appt 6 months [facility] Work Phone: Start: 12-19-2015 End: 12-19-2015 MMM MMM [facility] Work Phone: Start: 12-19-2015 End: 06-11-2016 Pacer Clinic [facility] Work Phone: Start: 09-04-2015 End: 06-11-2016 Follow Up Appt 3 months Follow Up Appt 3 months [facility] Work Phone: Start: 09-04-2015 End: 06-11-[address] [facility] Work Phone: Start: 09-04-2015 End: 06-11-2016 Follow Up Appt 3 months Follow Up Appt 3 months [facility] Work Phone: Start: 09-04-2015 End: 06-11-[address] [facility] Work Phone: Start: 07-14-2015 End: 08-07-2015 *Hepatic Function Panel *Hepatic Function Panel [facility] Work Phone: Start: 07-14-2015 End: 08-07-2015 Lipid panel [AGGREGATE] *Lipid Profile CC PCP [facility] Work Phone: Start: 07-14-2015 End: 08-07-2015 *Hepatic Function Panel *Hepatic Function Panel [email or web address] Work Phone: Start: 07-14-2015 End: 08-07-2015 Lipid panel [AGGREGATE] *Lipid Profile CC PCP [facility] Work Phone: Start: 06-20-2015 End: 06-20-2015 *BMP *BMP [facility] Work Phone: Start: 06-20-2015 End: 06-20-2015 *CBC with Differential *CBC with Differential [facility] Work Phone: Start: 06-20-2015 End: 06-20-2015 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 [facility] Work Phone: Start: 06-20-2015 End: 06-20-2015 Ecg routine ecg w/least 12 lds w/i&r EKG (In office) [facility] Work Phone: Start: 06-20-2015 End: 06-20-2015 Follow Up Appt 6 months Follow Up Appt 6 months [facility] Work Phone: Start: 06-20-2015 End: 06-20-2015 Nuclear stress test -Lexiscan Nuclear stress test -Lexiscan [facility] Work Phone: Start: 06-20-2015 End: 06-20-2015 *BMP *BMP [facility] Work Phone: Start: 06-20-2015 End: 06-20-2015 *CBC with Differential *CBC with Differential [facility] Work Phone: Start: 06-20-2015 End: 06-20-2015 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 [facility] Work Phone: Start: 06-20-2015 End: 06-20-2015 Electrocardiogram, complete EKG (In office) [facility] Work Phone: Start: 06-20-2015 End: 06-20-2015 Follow Up Appt 6 months Follow Up Appt 6 months [facility] Work Phone: Start: 06-20-2015 End: 06-20-2015 Nuclear stress test -Lexiscan Nuclear stress test -Lexiscan [facility] Work Phone: Start: 05-30-2015 End: 06-13-2015 Follow Up Appt 3 months Follow Up Appt 3 months [facility] Work Phone: Start: 05-30-2015 End: 06-13-2015 [facility] Clinic [facility] Work Phone: Start: 05-30-2015 End: 06-13-2015 Follow Up Appt 3 months Follow Up Appt 3 months [facility] Work Phone: Start: 05-30-2015 End: 06-13-2015 Pacer Clinic [facility] Work Phone: Start: 02-28-2015 End: 06-13-2015 Follow Up Appt 3 months Follow Up Appt 3 months [facility] Work Phone: Start: 02-28-2015 End: 06-13-2015 Pacer Clinic [facility] Work Phone: Start: 02-28-2015 End: 06-13-2015 Follow Up Appt 3 months Follow Up Appt 3 months [facility] Work Phone: Start: 02-28-2015 End: 06-13-2015 Pacer Clinic [facility] Work Phone: Start: 01-10-2015 End: 01-10-2015 *Hepatic Function Panel *Hepatic Function Panel [facility] Work Phone: Start: 01-10-2015 End: 01-10-2015 Lipid panel [AGGREGATE] *Lipid Profile CC PCP [facility] Work Phone: Start: 01-10-2015 End: 01-10-2015 *Hepatic Function Panel *Hepatic Function Panel [facility] Work Phone: Start: 01-10-2015 End: 01-10-2015 Lipid panel [AGGREGATE] *Lipid Profile CC PCP [facility] Work Phone: Start: 12-20-2014 End: 12-20-2014 Follow Up Appt 6 months Follow Up Appt 6 months [facility] Work Phone: Start: 12-20-2014 End: 12-20-2014 MMM MMM [facility] Work Phone: Start: 12-20-2014 End: 12-20-2014 Follow Up Appt 6 months Follow Up Appt 6 months [facility] Work Phone: Start: 12-20-2014 End: 12-20-2014 MMM MMM [facility] Work Phone: Start: 11-21-2014 End: 06-13-2015 Follow Up Appt 3 months Follow Up Appt 3 months [facility] Work Phone: Start: 11-21-2014 End: 06-13-2015 Pacer Clinic [facility] Work Phone: Start: 11-21-2014 End: 06-13-2015 Follow Up Appt 3 months Follow Up Appt 3 months [facility] Work Phone: Start: 11-21-2014 End: 06-13-2015 Pac[facility] Clinic [facility] Work Phone: Start: 08-19-2014 End: 06-13-2015 Follow Up Appt 3 months Follow Up Appt 3 months [facility] Work Phone: Start: 08-19-2014 End: 06-13-2015 Pac[facility] Clinic [facility] Work Phone: Start: 08-19-2014 End: 06-13-2015 Follow Up Appt 3 months Follow Up Appt 3 months [facility] Work Phone: Start: 08-19-2014 End: 06-13-[address] [facility] Work Phone: Start: 06-13-2014 End: 06-13-2014 *Hepatic Function Panel *Hepatic Function Panel [facility] Work Phone: Start: 06-13-2014 End: 06-13-2014 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 [facility] Work Phone: Start: 06-13-2014 End: 06-13-2014 Ecg routine ecg w/least 12 lds w/i&r EKG (In office) [facility] Work Phone: Start: 06-13-2014 End: 06-13-2014 Follow Up Appt 6 months Follow Up Appt 6 months [facility] Work Phone: Start: 06-13-2014 End: 06-13-2014 Lipid panel [AGGREGATE] *Lipid Profile CC PCP [facility] Work Phone: Start: 06-13-2014 End: 06-13-2014 *Hepatic Function Panel *Hepatic Function Panel [facility] Work Phone: Start: 06-13-2014 End: 06-13-2014 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 [facility] Work Phone: Start: 06-13-2014 End: 06-13-2014 Electrocardiogram, complete EKG (In office) [facility] Work Phone: Start: 06-13-2014 End: 06-13-2014 Follow Up Appt 6 months Follow Up Appt 6 months [facility] Work Phone: Start: 06-13-2014 End: 06-13-2014 Lipid panel [AGGREGATE] *Lipid Profile CC PCP [facility] Work Phone: Start: 05-18-2014 End: 05-31-2014 Follow Up Appt 3 months Follow Up Appt 3 months [facility] Work Phone: Start: 05-18-2014 End: 05-31-2014 Pacer Clinic [facility] Work Phone: Start: 05-18-2014 End: 05-31-2014 Follow Up Appt 3 months Follow Up Appt 3 months [facility] Work Phone: Start: 05-18-2014 End: 05-31-2014 Pacer Clinic [facility] Work Phone: Start: 02-14-2014 End: 05-31-2014 Follow Up Appt 3 months Follow Up Appt 3 months [facility] Work Phone: Start: 02-14-2014 End: 05-31-2014 Pacer Clinic [facility] Work Phone: Start: 02-14-2014 End: 05-31-2014 Follow Up Appt 3 months Follow Up Appt 3 months [facility] Work Phone: Start: 02-14-2014 End: 05-31-2014 Pac[facility] Clinic [facility] Work Phone: Start: 12-14-2013 End: 12-14-2013 Follow Up Appt 6 months Follow Up Appt 6 months [facility] Work Phone: Start: 12-14-2013 End: 12-14-2013 MMM MMM [facility] Work Phone: Start: 12-14-2013 End: 12-14-2013 Follow Up Appt 6 months Follow Up Appt 6 months [facility] Work Phone: Start: 12-14-2013 End: 12-14-2013 MMM MMM [facility] Work Phone: Start: 12-12-2013 End: 12-14-2013 *Hepatic Function Panel *Hepatic Function Panel [facility] Work Phone: Start: 12-12-2013 End: 12-14-2013 Lipid panel [AGGREGATE] *Lipid Profile CC PCP [facility] Work Phone: Start: 12-12-2013 End: 12-14-2013 *Hepatic Function Panel *Hepatic Function Panel [facility] Work Phone: Start: 12-12-2013 End: 12-14-2013 Lipid panel [AGGREGATE] *Lipid Profile CC PCP [facility] Work Phone: Start: 11-16-2013 End: 05-31-2014 Follow Up Appt 3 months Follow Up Appt 3 months [facility] Work Phone: Start: 11-16-2013 End: 05-31-2014 Pacer Clinic [facility] Work Phone: Start: 11-16-2013 End: 05-31-2014 Follow Up Appt 3 months Follow Up Appt 3 months [facility] Work Phone: Start: 11-16-2013 End: 05-31-2014 Pacer Clinic [facility] Work Phone: Start: 08-16-2013 End: 12-14-2013 Follow Up Appt 3 months Follow Up Appt 3 months [facility] Work Phone: Start: 08-16-2013 End: 12-14-2013 Pacer Clinic [facility] Work Phone: Start: 08-16-2013 End: 12-14-2013 Follow Up Appt 3 months Follow Up Appt 3 months [facility] Work Phone: Start: 08-16-2013 End: 12-14-2013 Pacer Clinic [facility] Work Phone: Start: 06-15-2013 End: 06-16-2013 *Hepatic Function Panel *Hepatic Function Panel [facility] Work Phone: Start: 06-15-2013 End: 06-15-2013 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 [facility] Work Phone: Start: 06-15-2013 End: 06-15-2013 Follow Up Appt 6 months Follow Up Appt 6 months [facility] Work Phone: Start: 06-15-2013 End: 06-16-2013 Lipid panel [AGGREGATE] *Lipid Profile CC PCP [facility] Work Phone: Start: 06-15-2013 End: 06-16-2013 *Hepatic Function Panel *Hepatic Function Panel [facility] Work Phone: Start: 06-15-2013 End: 06-15-2013 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 [facility] Work Phone: Start: 06-15-2013 End: 06-15-2013 Follow Up Appt 6 months Follow Up Appt 6 months [facility] Work Phone: Start: 06-15-2013 End: 06-16-2013 Lipid panel [AGGREGATE] *Lipid Profile CC PCP [facility] Work Phone: Start: 05-14-2013 End: 06-03-2013 Follow Up Appt 3 months Follow Up Appt 3 months [facility] Work Phone: Start: 05-14-2013 End: 06-03-2013 Pacer Clinic [facility] Work Phone: Start: 05-14-2013 End: 06-03-2013 Follow Up Appt 3 months Follow Up Appt 3 months [facility] Work Phone: Start: 05-14-2013 End: 06-03-2013 Pacer Clinic [facility] Work Phone: Start: 02-10-2013 End: 06-03-2013 Follow Up Appt 3 months Follow Up Appt 3 months [facility] Work Phone: Start: 02-10-2013 End: 06-03-2013 Pacer Clinic [facility] Work Phone: Start: 02-10-2013 End: 06-03-2013 Follow Up Appt 3 months Follow Up Appt 3 months [facility] Work Phone: Start: 02-10-2013 End: 06-03-2013 Pacer Clinic [facility] Work Phone: Start: 12-17-2012 End: 12-17-2012 Follow Up Appt 6 months Follow Up Appt 6 months [facility] Work Phone: Start: 12-17-2012 End: 12-17-2012 MMM MMM [facility] Work Phone: Start: 12-17-2012 End: 12-17-2012 Follow Up Appt 6 months Follow Up Appt 6 months [facility] Work Phone: Start: 12-17-2012 End: 12-17-2012 MMM MMM [facility] Work Phone: Start: 11-11-2012 End: 06-16-2013 *Hepatic Function Panel *Hepatic Function Panel [facility] Work Phone: Start: 11-11-2012 End: 06-16-2013 Lipid panel [AGGREGATE] *Lipid Profile [facility] Work Phone: Start: 11-11-2012 End: 06-16-2013 *Hepatic Function Panel *Hepatic Function Panel [facility] Work Phone: Start: 11-11-2012 End: 06-16-2013 Lipid panel [AGGREGATE] *Lipid Profile [facility] Work Phone: Start: 11-10-2012 End: 06-03-2013 Follow Up Appt 3 months Follow Up Appt 3 months [facility] Work Phone: Start: 11-10-2012 End: 06-03-2013 Pacer Clinic [facility] Work Phone: Start: 11-10-2012 End: 06-03-2013 Follow Up Appt 3 months Follow Up Appt 3 months [facility] Work Phone: Start: 11-10-2012 End: 06-03-2013 Pacer Clinic [facility] Clinic [facility] Work Phone: Start: 07-15-2012 End: 07-15-2012 Ecg routine ecg w/least 12 lds w/i&r EKG (In office) [facility] Work Phone: Start: 07-15-2012 End: 07-15-2012 Electrocardiogram, complete EKG (In office) [facility] Work Phone: Start: 06-18-2012 End: 06-18-2012 Device Interrogation Device Interrogation [facility] Work Phone: Start: 06-18-2012 End: 06-18-2012 Follow Up Appt 6 months Follow Up Appt 6 months [facility] Work Phone: Start: 06-18-2012 End: 06-18-2012 Device Interrogation Device Interrogation [facility] Work Phone: Start: 06-18-2012 End: 06-18-2012 Follow Up Appt 6 months Follow Up Appt 6 months [facility] Work Phone: Start: 06-03-2012 End: 06-03-2012 *Hepatic Function Panel *Hepatic Function Panel [facility] Work Phone: Start: 06-03-2012 End: 06-03-2012 Echocardiography Echocardiogram (complete) [facility] Work Phone: Start: 06-03-2012 End: 06-03-2012 Follow Up Appt 6 months Follow Up Appt 6 months [facility] Work Phone: Start: 06-03-2012 End: 06-10-2012 Lipid panel [AGGREGATE] *Lipid Profile [facility] Work Phone: Start: 06-03-2012 End: 06-03-2012 *Hepatic Function Panel *Hepatic Function Panel [facility] Work Phone: Start: 06-03-2012 End: 06-03-2012 Echocardiography Echocardiogram (complete) [facility] Work Phone: Start: 06-03-2012 End: 06-03-2012 Follow Up Appt 6 months Follow Up Appt 6 months [facility] Work Phone: Start: 06-03-2012 End: 06-10-2012 Lipid panel [AGGREGATE] *Lipid Profile [facility] Work Phone: Start: 10-11-2011 End: 06-03-2012 *Hepatic Function Panel *Hepatic Function Panel [facility] Work Phone: Start: 10-11-2011 End: 10-11-2011 Follow Up Appt 6 months Follow Up Appt 6 months [facility] Work Phone: Start: 10-11-2011 End: 06-03-2012 Lipid panel [AGGREGATE] *Lipid Profile [facility] Work Phone: Start: 10-11-2011 End: 06-03-2012 *Hepatic Function Panel *Hepatic Function Panel [facility] Work Phone: Start: 10-11-2011 End: 10-11-2011 Follow Up Appt 6 months Follow Up Appt 6 months [facility] Work Phone: Start: 10-11-2011 End: 06-03-2012 Lipid panel [AGGREGATE] *Lipid Profile [facility] Work Phone: Patient Education [facility] Work Phone: Patient referral [facility] Work Phone: Immunizations Immunization Date Immunization Notes Care Provider Fa noel 10-12-2020 Covid (Pfizer) No Primary Ca re Physician [facility] 09-21-2020 Covid (Pfizer) No Primary Ca re Physician [facility] Payers Date Payer Category Payer Self-pay [id number] 2012 Medicare [id number] Medicare MEDICARE PART A B [id number] Unknown [id number] [id number] Unknown [id number] Unknown [id number] [id number] Unknown [id number] [id number] Unknown [id number] [id number] [id number] Unknown [id number] [id number] [id number] Unknown [id number] [id number] [id number] Unknown [id number] [id number] [id number] Social History Date Type Detail Facility [facility] Start: 1940 Sex Assigned At Male [facility] Start: 07-17-2023 [facility] Procedure note 12-01-2024 Note Date & Type Note Facility 12-01-2024 Procedure note [facility] Evaluation note 12-01-2024 Note Date & Type Note Facility 12-01-2024 Evaluation note Diagnosis Onset Date Resolution Ischemic cardiomyopathy chronic December 01, 2024 1:55pm NSVT (nonsustained ventricular tachycardia) chronic December 01, 2024 1:55pm Presence of automatic implantable cardioverter-defibri llator July 23, 2012 chronic December 01, 2024 1:55pm Bradycardia chronic December 01 1:56pm Essential hypertension chronic December 01, 2024 1:56pm History of coronary artery stent placement July 28, 2009 chronic December 01, 2024 1:56pm HLD (hyperlipidemia) chronic December 01, 2024 1:56pm Ischemic cardiomyopathy chronic December 01, 2024 1:56pm Memory deficit chronic December 01, 2024 1:56pm NSVT (nonsustained ventricular tachycardia) chronic May 21st, 2025 1:56pm Paroxysmal atrial flutter chronic December 01, 2024 1:56pm Presence of automatic implantable cardioverter-defibri llator July 23, 2012December 01, 2024 1:56pm [facility] Work Phone: Evaluation note 07-23-2012 Note Date & Type Note Facility 07-23-2012 Evaluation note Diagnosis Onset Date Paroxysmal atrial flutter [place] Bradycardia chronic 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 cardiomyopathy 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, 2012 chronic Essential hypertension acute Paroxysmal atrial flutter [place] Bradycardia chronic History of coronary artery stent placement July 28, 2009 chronic HLD (hyperlipidemia) chronic Ischemic cardiomyopathy 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, 2012 [facility] Work Phone: Evaluation note 07-23-2012 Note Date & Type Note Facility 07-23-2012 Evaluation note Diagnosis Onset Date Paroxysmal atrial flutter [place] Ischemic cardiomyopathy 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, 2012 chronic Essential hypertension acute Memory deficit acute NSVT (nonsustained ventricular tachycardia) acute Paroxysmal atrial flutter [place] Bradycardia chronic History of coronary artery stent placement July 28, 2009 chronic HLD (hyperlipidemia) chronic Ischemic cardiomyopathy 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, 2012 [facility] Work Phone: Evaluation note 07-28-2009 Note Date & Type Note Facility 07-28-2009 Evaluation note Diagnosis Onset Date Resolution Bradycardia chronic December 01 1:56pm Essential hypertension chronic December 01, 2024 1:56pm History of coronary artery stent placement July 28, 2009 chronic December 01, 2024 1:56pm HLD (hyperlipidemia) chronic December 01, 2024 1:56pm Ischemic cardiomyopathy chronic December 01, 2024 1:56pm Memory deficit chronic December 01, 2024 1:56pm NSVT (nonsustained ventricular tachycardia) chronic December 01, 2024 1:56pm Paroxysmal atrial flutter chronic December 01, 2024 1:56pm Presence of automatic implantable cardioverter-defibri llator July 23, 2012December 01, 2024 1:56pm [facility] [employer] [facility] Work Phone: Reason for referral (narrative) Note Date & Type Note Facility Reason for referral (narrative) No reason for referral information available [facility] Work Phone: Chief Complaint and Reason for Visit Chief Complaint Pacer Check Remote 3 M FU/ Taylor Fuentes at 1:30pm E-ORDER Reason for Visit Paroxysmal atrial fl utter Bradycardia Ischemic cardiomyopathy Presence of automatic implantable cardioverter-defibrillator Essential hypertension Paroxysmal atrial flutter Bradycardia History of coronary artery stent placement HLD (hyperlipidemia) Ischemic cardiomyopathy Presence of automatic implantable cardioverter-defibrillator Chief Complaint E-ORDER 4 M FU/JHR @ 3:30 4 M FU/GINA @ 3 Pacer Check Remote Reason for Visit Paroxysmal atrial fl utter Ischemic cardiomyopathy Presence of automatic implantable cardioverter-defibrillator Essential hypertension Memory deficit NSVT (nonsustained ventricular tachycardia) Paroxysmal atrial flutter Bradycardia History of coronary artery stent placement HLD (hyperlipidemia) Ischemic cardiomyopathy Presence of automatic implantable cardioverter-defibrillator Chief Complaint Admit Date 5 M FU/JHR @ 2:30 December 01, 2024 1:55p m 1 Y FU/GINA @ 2 December 01, 2024 1:56p m Reason for Visit Admit Date Bradycardia December 01, 2024 1:56p m Essential hypertension December 01, 2024 1: 56pm History of coronary artery stent placeme nt December 01, 2024 1:56pm HLD (hyperlipidemia) December 01, 2024 1:56 pm Ischemic cardiomyopathy December 01, 2024 1 :56pm Memory deficit December 01, 2024 1:56p m NSVT (nonsustained ventricular tachycard ia) December 01, 2024 1:56pm Paroxysmal atrial flutter December 01, 2024 1:56pm Presence of automatic implantable cardio verter-defibrillator December 01, 2024 1:56pm Reason for Visit Admit Date Ischemic cardiomyopathy December 01, 2024 1 :55pm NSVT (nonsustained ventricular tachycard ia) December 01, 2024 1:55pm Presence of automatic implantable cardio verter-defibrillator December 01, 2024 1:55pm Bradycardia December 01, 2024 1:56p m Essential hypertension December 01, 2024 1: 56pm History of coronary artery stent placeme nt December 01, 2024 1:56pm HLD (hyperlipidemia) December 01, 2024 1:56 pm Ischemic cardiomyopathy December 01, 2024 1 :56pm Memory deficit December 01, 2024 1:56p m NSVT (nonsustained ventricular tachycard ia) December 01, 2024 1:56pm Paroxysmal atrial flutter December 01, 2024 1:56pm Presence of automatic implantable cardio verter-defibrillator December 01, 2024 1:56pm Chief Complaint Admit Date Pacer Check Remote December 01, 2024 9:00a m 5 M FU/JHR @ 2:30 December 01, 2024 1:55p m 1 Y FU/GINA @ 2 December 01, 2024 1:56p m Family History No Family History Records Found Relationship Condition Age at Onset Recorded Date/T meryl mother Coronary artery disease Unknown Myocardial infarction Unknown aunt Coronary artery disease Unknown uncle Coronary artery disease Unknown Summary Purpose Advance Directives No Advanced Directives Records Found Additional Source Comments Care Teams (unrecognized sec tion and content) Team Status: Active Member Role Status Dates No Primary Care Physician Primary Care Provider Active Team Status: Inactive Member Role Status Dates No Primary Care Physician Primary Care Provider Active Start: December 01, 2024 End: December 01, 2024 No Primary Care Physician Referring Provider Active Start: December 01, 2024 End: December 01, 2024 Toya Herrera Attending Provider Active Start: M romelia 2024 End: December 01, 2024 Team Status: Inactive Member Role Status Dates Marcelino Arizmendi PRE [employer] TE[employer]ER, PRE [employer] TEACHER-C Attending Provider Active S tart: December 01, 2024 End: December 01, 2024 No Primary Care Physician Primary Care Provider Active Start: December 01, 2024 End: December 01, 2024 No Primary Care Physician Referring Provider Active Start: December 01, 2024 End: December 01, 2024 Team Status: Active Member Role Status Dates No Primary Care Physician Family Provider Active No Primary Care Physician Primary Care Provider Active Team Status: Inactive Member Role Status Dates Marcelino Arizmendi PRE [employer] TEACHER, PRE [employer] TEACHER-C Attending Provider Active No Primary Care Physician Primary Care Provider, Refer ring Provider Active Team Status: Inactive Member Role Status Dates No Primary Care Physician Primary Care Provider Active Dr. Wolfgang Conde MD Attending Provider Active Team Status: Inactive Member Role Status Dates No Primary Care Physician Primary Care Provider Active Marcelino Arizmendi PRE [employer] TE[employer]ER, PRE [employer] TEACHER-C Attending Provider, Referring Pro vider Active Team Status: Active Member Role Status Dates No Primary Care Physician Family Provider Active Team Status: Inactive Member Role Status Dates No Primary Care Physician Primary Care Provider, Refer ring Provider Active Toya Herrera Attending Provider Active Team Status: Inactive Member Role Status Dates No Primary Care Physician Primary Care Provider, Refer ring Provider Active Marcelino Arizmendi PRE [employer] TEACHER, PRE [employer] TEACHER-C Attending Provider Active Team Status: Active Member Role Status Dates Dr. Wolfgang Conde MD Attending Provider, Referring Pro vider Active Team Status: Active Member Role Status Dates No Primary Care Physician Primary Care Provider Active Start: December 01, 2024 No Primary Care Physician Referring Provider Active Start: December 01, 2024 Toya Herrera Attending Provider Active Start: M ay 2024 Team Status: Inactive Member Role Status Dates Dr. Wolfgang Conde MD Attending Provider Active S tart: December 01, 2024 End: December 01, 2024 Team Status: Inactive Member Role Status Dates Dr. Wolfgang Conde MD Attending Provider Active S tart: December 01, 2024 End: December 01, 2024 Dr. Wolfgang Conde MD Referring Provider Active S tart: December 01, 2024 End: December 01, 2024 Goals (unrecognized section and content) Goals may be documented in a n alternate sectionGoals may be documented in an alternate sectionGoals may be documented in an alternate sectionGoals may be documented in an alternate sectionGoals may be documented in an alternate section (unrecognized sect ion and content) No Status Records Found INFORMATION SOURCE (unrecogn ized section and content) DATE CREATED AUTHOR 12/31/2024 [facility] FOR RECORDS PERTAINING TO PATIENTS WHO ARE OR HAVE BEEN ENROLLED IN A CHEMICAL DEPENDENCY/SUBSTANCEABUSE PROGRAM, SOME INFORMATION MAY BE OMITTED. This clinical summary was aggregated from multiple sources. Caution should be exercised in using it in the provision of clinical care. This summary normalizes information from multiple sources, and as a consequence, information in this document may materially change the coding, format and clinical context of patient data. In addition, data may be omitted in some cases. CLINICAL DECISIONS SHOULD BE BASED ON THE PRIMARY CLINICAL RECORDS. [employer] provides no warranty or guarantee of the accuracy or completeness of information in this document.
[2025-01-23 01:12] LABS: Alcohol, Blood (Medical)-Serum < 10.1 mg/dL (<=10.0)
[2025-01-23 01:16] LABS: Anion Gap 13 (5-15); BUN 27 mg/dL (4-19); BUN/Creat Ratio 17.6 RATIO (10-20); Calcium,Total 8.9 mg/dL (7.6-11.0); Carbon Dioxide 19.9 mmol/L (21.0-32.0); Chloride 103 mmol/L (98-108); Estimated Creatinine Clearance 28.48 ml/min (50-250); Glucose 130 mg/dL (70-99); Potassium 3.9 mmol/L (3.3-5.1)
[2025-01-23 02:00] VITALS: BP 132/89; PULSE 91; RESP 16; O2SAT 99
--- NOTE | 2025-01-23 02:00 | CT_ITS ---
PROCEDURE: BRAIN/HEAD WITHOUT CONTRAST 01/23/2025 REASON FOR EXAM: CONFUSION TECHNIQUE: BRAIN/HEAD WITHOUT CONTRAST Coronal and Sagittal reconstruction series were provided. One or more dose reduction techniques were used (e.g., Automated exposure control, adjustment of the mA and/or kV according to patient size, use of iterative reconstruction technique. RADIATION DOSE SUMMARY: CTDlvol: 44.99 mGy DLP: 796.11 mGycm COMPARISON: None. FINDINGS: Moderate global parenchymal atrophy. Periventricular white matter hypodensity likely representing chronic microvascular ischemia. The paranasal sinuses and mastoid air cells are clear. The calvarial vault and skull base are intact. CT/Brain/Head without Contrast IMPRESSION: NO ACUTE FINDINGS Reading Location: [id number]
[2025-01-23 02:08] LABS: Barbiturate Urine NEGATIVE (< 200 ng/mL); Benzodiazepine Urine NEGATIVE (< 200 ng/mL); PCP Urine NEGATIVE (< 25 ng/mL); THC Urine NEGATIVE (< 50 ng/mL)
[2025-01-23 02:54] VITALS: BP 141/99; PULSE 94; RESP 16; O2SAT 99
--- NOTE | 2025-01-23 05:52 | PCA ---
REFERRED TO GENERATIONS
[2025-01-23 07:00] LABS: Mucous, Urine 0 SEEN /hpf (<or=2+); Squamous Epithelial Cells - UA 0 SEEN /hpf (0-5)
[2025-01-23] MEDS: Aspirin E.C. 81 MG Tablet PO (07:27)
[2025-01-23 07:53] LABS: Color, Urine Yellow (Yellow); Glucose, Dipstick Normal (Normal); Ketone-Dipstick Negative (Negative); Leukocyte Esterase-Dipstick Negative /ul (Negative); Nitrite-Dipstick Negative (Negative); Occult Blood-Urine Negative /ul (Negative); Protein-Dipstick 30 mg/dl (Negative); Specific Gravity, Urine 1.025 (1.002-1.030); Urine Bilirubin Dipstick Negative (Negative)
[2025-01-23 07:55] LABS: Red Blood Cells-Urine 0-5 SEEN /hpf (0-5)
[2025-01-23 10:30] VITALS: BP 123/81; PULSE 76; RESP 16; TEMP 36.8; O2SAT 91
== END 2025-01-23 10:39 ==
PROVIDERS: Emergency Provider Surgery; Visit Provider Surgery
DX: R45.851 Suicidal ideations (principal); D61.818 Other pancytopenia; N28.9 Disorder of kidney and ureter, unspecified; I10 Essential (primary) hypertension; I25.2 Old myocardial infarction; I25.5 Ischemic cardiomyopathy; E78.5 Hyperlipidemia, unspecified; I25.10 Atherosclerotic heart disease of native coronary artery without angina pectoris; Z95.5 Presence of coronary angioplasty implant and graft; Z79.82 Long term (current) use of aspirin; Z79.899 Other long term (current) drug therapy; Z95.810 Presence of automatic (implantable) cardiac defibrillator
CPT/HCPCS: 70450; 80048; 80307; 81001; 82077; 85025; 99285

== ENCOUNTER 2025-02-08 11:54 | Observation (INO) | payer MEDICARE, SELFPAY ==
[2025-02-08] VITALS (7 sets, daily range): BP systolic 97–156; BP diastolic 64–84; PULSE 42–53; RESP 13–18; TEMP 36.1–36.6; O2SAT 97–100; BMI 19.5
--- NOTE | 2025-02-08 12:10 | RAD_ITS ---
EXAM: XR Chest, 1 View CLINICAL INDICATION: COUGH TECHNIQUE: Frontal view of the chest. COMPARISON: No relevant prior studies available. FINDINGS: LUNGS AND PLEURAL SPACES: Unremarkable. No consolidation. No pneumothorax. HEART: Unremarkable. No cardiomegaly. MEDIASTINUM: Unremarkable. Normal mediastinal contour. BONES/JOINTS: Unremarkable. No acute fracture. TUBES, LINES AND DEVICES: Left-sided cardiac pacemaker. RAD/Chest 1 View (Portable) IMPRESSION: No acute cardiopulmonary process. Reading Location: [facility]
--- NOTE | 2025-02-08 12:10 | CT_ITS ---
EXAM: NONCONTRAST CT SCAN OF THE HEAD CLINICAL HISTORY: Mental status change, weakness COMPARISON: January 23, 2025 TECHNIQUE: Serial axial series through the head were obtained without contrast. 2-D coronal and sagittal reformats were then obtained. FINDINGS: Brain: There is no acute large territorial infarct, intracranial hemorrhage, midline shift or mass effect. There are atherosclerotic vascular calcifications involving the bilateral carotid siphons. The sella and pineal gland regions appear unremarkable. There is no evidence of cerebellar tonsillar herniation. Ventricles: There is no acute hydrocephalus. Basilar cisterns are patent. Paranasal sinuses: Well-aerated Mastoid air cells: Well-aerated. Calvarium: The bony calvarium is intact. Orbits: The bilateral globes are symmetric, without retrobulbar compressive mass lesion or hemorrhage. CT/Brain/Head without Contrast IMPRESSION: No acute intracranial pathology. Reading Location[facility]
--- NOTE | 2025-02-08 12:11 | EKG12_ITS ---
Test Reason : GENERAL Blood Pressure : */* mmHG Vent. Rate : 48 BPM Atrial Rate : 48 BPM P-R Int : 170 ms QRS Dur : 104 ms QT Int : 512 ms P-R-T Axes : 57 -31 190 degrees QTcB Int : 457 ms Sinus bradycardia Left axis deviation Cannot rule out Anteroseptal infarct T wave abnormality, consider lateral ischemia Abnormal ECG Confirmed by NGOZI REZA, CASSI ([id number]), brands editor ZANA ROOT ([id number]) on 02/09/2025 8:35:44 AM Referred By: Confirmed By: CASSI MELVIN MD
--- NOTE | 2025-02-08 12:11 | EX.ED.DYSGE1 ---
HPI History of Present Illness Chief Complaint: General Illness Detail of Chief Complaint: Failure to thrive and needing senior care placement Informant: patient and family Narrative Narrative: Patient presents to the emergency department with his sister. He apparently is not doing well at home and lives alone. She feels he needs senior care placement. Patient recently admitted to a psychiatric facility for suicidal ideation on January 23. Patient has history of some dementia. Sister has medical power of deputy attorney general for him. He is not eating and drinking normally. He is answering some questions but not really having conversations. Sister does not feel he can care for himself. He developed a slight cough a few days ago. [facility] Medical History (Updated 02/08/25 @ 13:[address] 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 (left ventricular) mural thrombus Atherosclerosis of [place] coronary artery of [place] heart without angina pectoris (07/28/09) Ischemic cardiomyopathy HLD (hyperlipidemia) Bradycardia Home Medications ?Medication ?Instructions ?Recorded ?Last Taken ?Type aspirin 81 mg tablet,delayed 81 mg PO QDAY 07/23/17 Unknown History release (Adult Aspirin Regimen) atorvastatin 80 mg tablet 80 mg PO QDAY #90 tabs 10/28/19 Unknown Rx carvedilol 12.5 mg tablet 12.5 mg PO BID #180 tabs 09/23/24 Unknown Rx lisinopril 10 mg tablet 10 mg PO QDAY #90 tabs 09/23/24 Unknown Rx acetaminophen 325 mg capsule 650 mg PO Q6H PRN pain 02/08/25 Unknown History donepezil 10 mg tablet 10 mg PO DAILY 02/08/25 Unknown History magnesium hydroxide 400 mg/5 mL 30 ml PO BID PRN constipation 02/08/25 Unknown History oral suspension (Dulcolax (magnesium hydroxide)) memantine 5 mg tablet 5 mg PO BID 02/08/25 Unknown History risperidone 1 mg tablet 1 mg PO BID 02/08/25 Unknown History Allergy/AdvReac Type Severity Reaction Status Date / Time No Known Allergies Allergy Verified 02/08/25 11:55 Family History Mother CAD (coronary artery disease) Myocardial infarction Aunt CAD (coronary artery disease) Myocardial infarction Uncle CAD (coronary artery disease) Myocardial infarction Surgical History Presence of automatic implantable cardioverter-defibrillator (07/23/12) History of coronary artery stent placement (07/28/09) Social History Smoking Status: Never smoker alcohol intake: never substance use type: does not use caffeine: Yes Type: coffee what type of physical activity do you participate in: walking frequency: daily duration: 60-90 minutes/day seatbelt use: always do you feel safe at home: Yes ROS ROS ED Review of Systems ROS Unobtainable: other Constitutional Constitutional ED: Reports lethargy; Denies chills, fever(s), sweats or weight loss Eyes Eyes: Denies blurry vision, change in vision or diplopia ENT ENT ED: Denies rhinorrhea or sore throat Cardiovascular Cardiovascular: Denies chest pain, orthopnea or racing heartbeat Respiratory/Chest Respiratory/Chest: Reports cough; Denies dyspnea, dyspnea on exertion, orthopnea or sputum Gastrointestinal Gastrointestinal: Denies abdominal pain, diarrhea, nausea or vomiting Genitourinary Genitourinary ED: Denies dysuria, hematuria or urinary frequency Musculoskeletal Musculoskeletal: Denies arthralgias, back pain, myalgias or neck pain Integumentary Denies abscess, Abrasions or rash Neurologic Neurologic: Denies headache(s) or weakness Psychiatric Psychiatric: Denies anxiety, depression or suicidal thoughts Endocrine Endocrinology: Denies polydipsia, polyphagia or polyuria Hematologic/Lymphatic Hematologic/Lymphatic: Denies easy bleeding, easy bruising or lymphadenopathy Allergic/Immunologic Allergic/Immunologic ED: Denies mouth swelling, tongue swelling or urticaria EXAM Physical Exam Const Vital Signs: 02/08/25 11:55 02/08/25 12:08 Temperature 96.9 F L Temperature Source Temporal Pulse Rate 53 L Respiratory Rate 14 Respiratory Effort Normal Non-Labored Respiratory Pattern Normal Blood Pressure 97/65 Blood Pressure Mean 75 Pulse Ox 98 Oxygen Delivery Method Room Air Positive well nourished and well developed General Appearance ED: well developed and NAD HEENT Reports TM's clear and moist mucous membranes normocephalic and atraumatic; Negative for trauma or tenderness Tympanic Membrane ED: Yes TM's clear Eyes PERRL and EOMs intact bilaterally General Eye ED: Negative for pale conjunctiva or scleral icterus Neck no lymphadenopathy, supple and no JVD General: Negative for tenderness Chest Wall inspection of chest normal and palpation of chest normal Chest: Negative for tenderness Resp normal respiratory effort and clear to auscultation bilaterally Effort and Inspection: Negative for respiratory distress or pain with movement Auscultation: Negative for rhonchi, wheezes or diminished lung sounds Cardio regular rate, regular rhythm, S1 normal heart sound, S2 normal heart sound and no murmurs Peripheral Pulses: pulses 2+ throughout GI normal to inspection, nondistended, normoactive bowel sounds, soft to palpation, non-tender, non-distended and no masses Back/Spine no CVA tenderness and no thoracic nor lumbar tenderness Extremity normal to inspection General Extremety ED: Negative for edema General Extremity: Negative for edema Neuro oriented x3, CN's II-XII intact bilaterally, no sensory deficits noted and gait normal Sensorium / Orientation: awake, alert, oriented to person, oriented to place and oriented to time Motor Exam: strength 5/5 throughout and strength abnormal Psych mental status grossly normal Skin no rashes or lesions noted and no wounds MDM MDM MDM Narrative Medical decision making narrative: Patient presents with concern for failure to thrive and history of dementia. Patient's sister asking that patient be placed in to extended-care facility. EKG obtained arrival showed sinus bradycardia with rate of [address] changes. CBC with differential shows white count 5.4 with hemoglobin 12.1 platelet count of 121. Chemistries unremarkable. BUN 39 and creatinine 1.64. LFTs unremarkable. CT scan of the brain showed no acute disease process. Lab Data Attestation: I reviewed the patient's lab results. Labs: Laboratory Results - last 24 hr 02/08/25 12:22 WBC 5.4 RBC 3.81 L Hgb 12.1 L Hct 35.5 L MCV 93.2 MCH 31.8 MCHC 34.1 RDW Std Deviation 43.7 RDW Coeff of [place] 12.8 Plt Count 121 L MPV 11.4 Immature Gran % (Auto) 0.400 Neut % (Auto) 74.4 H Lymph % (Auto) 13.6 L [place] % (Auto) 10.7 H Eos % (Auto) 0.7 Baso % (Auto) 0.2 Absolute Neuts (auto) 4.0 Absolute Lymphs (auto) 0.74 L Nucleated RBC % 0 Sodium 137 Potassium 3.7 Chloride 102 Carbon Dioxide 21.7 Anion Gap 14 BUN 39 H Creatinine 1.64 H Estim Creat Clear Calc 27.90 L Est GFR (MDRD) Non-Af 42 L BUN/Creatinine Ratio 23.5 H Glucose 132 H Calcium 9.2 Total Bilirubin 1.16 AST 19 ALT 9 Alkaline Phosphatase 91 Total Protein 6.7 Albumin 3.9 Globulin 2.8 Albumin/Globulin Ratio 1.4 Radiography Diagnostic Testing: Clinical Impression(s) from Imaging Studies Brain CT 02/08/25 12:10 IMPRESSION: No acute intracranial pathology. Reading [facility] Chest X-Ray 02/08/25 12:10 IMPRESSION: No acute cardiopulmonary process. Reading Location[facility] 1 view chest x-ray obtained interpreted by myself as no evidence of infiltrate or pneumothorax or acute disease process. Radiology in agreement EKG Initial EKG: Attestation: I personally reviewed and interpreted this EKG as follows: Comments: Sinus rhythm with rate of [address] changes Discharge Plan Triage Chief Complaint: General Illness ED Provider: Michael Allen Dx/Rx/DC Orders Clinical Impression: Weakness, Adult failure to thrive, Dementia Prescriptions: No Action aspirin [Adult Aspirin Regimen] 81 mg tablet,delayed release (DR/EC) 81 mg PO QDAY atorvastatin 80 mg tablet 80 mg PO QDAY Qty: 90 3RF magnesium hydroxide [Dulcolax (magnesium hydroxide)] 400 mg/5 mL suspension 30 ml PO BID PRN (Reason: constipation) acetaminophen 325 mg capsule 650 mg PO Q6H PRN (Reason: pain) donepezil 10 mg tablet 10 mg PO DAILY risperidone 1 mg tablet 1 mg PO BID memantine 5 mg tablet 5 mg PO BID lisinopril 10 mg tablet 10 mg PO QDAY Qty: 90 3RF carvedilol 12.5 mg tablet 12.5 mg PO BID Qty: 180 3RF Primary Care Provider: Care Physician,No Primary Referrals: Care Physician,No Primary [Primary Care Provider] - Print Language: Senegalese Disposition Disposition: [facility]
[2025-02-08] MEDS: 0.9% Normal Saline (1000mL) 1,000 ML 150 ML IV ×2 (12:28→15:52)
[2025-02-08 12:36] LABS: Hematocrit 35.5 % (40-54); Hemoglobin 12.1 g/dL (13.0-16.5); Immature Granulocytes Count 0.020 X10^3/uL (0.0-0.0); Mean Corp Hgb Conc 34.1 g/dL (32-36); Mean Corpuscular Volume 93.2 fL (80-94); Mean Platelet Vol. 11.4 fl (6.2-12.0); NRBC Flagged by Analyzer 0 % (0-5); Platelet Count 121 K/mm3 (150-450); RBC Distribution Width CV 12.8 % (11.6-14.6); RBC Distribution Width SD 43.7 fl (35.1-43.9); Red Blood Count 3.81 M/mm3 (4.6-6.2); White Blood Count 5.4 K/mm3 (4.4-11.0)
[2025-02-08 12:52] LABS: AST(SGOT) 19 U/L (<=37); Alanine Aminotransfer ALT/SGPT 9 U/L (<=46); Albumin, Serum 3.9 g/dL (3.4-4.8); Alkaline Phosphatase 91 U/L (40-129); Anion Gap 14 (5-15); BUN 39 mg/dL (4-19); BUN/Creat Ratio 23.5 RATIO (10-20); Calcium,Total 9.2 mg/dL (7.6-11.0); Carbon Dioxide 21.7 mmol/L (21.0-32.0); Chloride 102 mmol/L (98-108); Estimated Creatinine Clearance 27.90 ml/min (50-250); Globulin 2.8 g/dL (2.2-4.2); Glucose 132 mg/dL (70-99); Potassium 3.7 mmol/L (3.3-5.1)
--- NOTE | 2025-02-08 13:00 | CM.ED ---
Social work Per triage notes, patient's sister, Kymberly, was requesting for patient to be placed in a nursing facility due to patient's inability to care for self. Also per triage notes, patient reportedly went to [facility] for psychiatric reasons on 01/23/25 and recently discharged. Per Dr. Allen's note, Kymberly was HCPOA and SW entered patient's room to see if Kymberly had paperwork that SW could copy. SW entered patient's room, introducing self and role at [facility]. Patient was asleep throughout SW time in patient's room. Kymberly stated not having any legal documents stating Kymberly was HCPOA, but Kymberly stated patient agreed to it at [facility]. SW stated without legal paperwork that patient signs while healthcare professionals believe patient has all of patient's mental faculties, Kymberly is not actually HCPOA in case of emergencies. Kymberly stated understanding and stated belief that patient would not mind making Kymberly HCPOA during admission at [facility]. SW will pass this information along to the acute team for further understanding. Aliyah Villareal, MECHANIC HELPER, SCREEN TENDER HELPER
--- NOTE | 2025-02-08 13:45 | PCM.HP.STD ---
[facility] - General General Date of Admission: 02/08/25 Date of Service: 02/08/25 Chief Complaint: Failure to thrive HPI Narrative SOPHIA CORTES, is a 84 M who presented to [facility] ED on 02/08/2025 with adult failure to thrive. Patient lives at home alone. He was recently seen in the ED here on 01/23 for suicidal ideation and was admitted to a psychiatric facility for this. Has history of dementia and sister is medical power of criminal attorney. Medical history otherwise significant for CAD with stenting, HFrEF with ischemic cardiomyopathy s/p ICD placement, NSVT and paroxysmal atrial flutter. He presented to the ED today with his sister. She noted that he has not been eating and drinking normally recently, has been more confused than his normal and she is very concerned about him being able to care for himself at home. In the ED he had sinus bradycardia to the low 50s but was otherwise normotensive and stable on room air. CBC fairly benign. BMP with creatinine 1.64 (baseline appears to be around 1.3), BUN 39, otherwise unremarkable. UA was benign. CT brain unremarkable. Given need for placement, hospitalist was contacted for admission. I saw the patient at bedside in the ED, sister was present. Patient was laying back in bed and making appropriate eye contact. He was alert and oriented to person and place but not time and had difficulty answering any other questions for me. He denied any pain or discomfort anywhere. No other acute concerns currently. Will be admitted for further management. 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) LV (left ventricular) mural thrombus Atherosclerosis of [place] coronary artery of [place] heart without angina pectoris (07/28/09) Ischemic cardiomyopathy HLD (hyperlipidemia) Bradycardia Home Medications ?Medication ?Instructions ?Recorded ?Last Taken ?Type aspirin 81 mg tablet,delayed 81 mg PO QDAY 07/23/17 Unknown History release (Adult Aspirin Regimen) atorvastatin 80 mg tablet 80 mg PO QDAY #90 tabs 10/28/19 Unknown Rx carvedilol 12.5 mg tablet 12.5 mg PO BID #180 tabs 09/23/24 Unknown Rx lisinopril 10 mg tablet 10 mg PO QDAY #90 tabs 09/23/24 Unknown Rx acetaminophen 325 mg capsule 650 mg PO Q6H PRN pain 02/08/25 Unknown History donepezil 10 mg tablet 10 mg PO DAILY 02/08/25 Unknown History magnesium hydroxide 400 mg/5 mL 30 ml PO BID PRN constipation 02/08/25 Unknown History oral suspension (Dulcolax (magnesium hydroxide)) memantine 5 mg tablet 5 mg PO BID 02/08/25 Unknown History risperidone 1 mg tablet 1 mg PO BID 02/08/25 Unknown History Allergy/AdvReac Type Severity Reaction Status Date / Time No Known Allergies Allergy Verified 02/08/25 11:55 Family History Mother CAD (coronary artery disease) Myocardial infarction Aunt CAD (coronary artery disease) Myocardial infarction Uncle CAD (coronary artery disease) Myocardial infarction Surgical History Presence of automatic implantable cardioverter-defibrillator (07/23/12) History of coronary artery stent placement (07/28/09) Social History Smoking Status: Never smoker alcohol intake: never substance use type: does not use caffeine: Yes Type: coffee what type of physical activity do you participate in: walking frequency: daily duration: 60-90 minutes/day seatbelt use: always do you feel safe at home: Yes ROS Review of Systems ROS Unobtainable: due to mental status Constitutional Constitutional: Reports fatigue; Denies chills or fever(s) Cardiovascular Cardiovascular: Denies chest pain Respiratory/Chest Respiratory/Chest: Denies shortness of breath at rest Gastrointestinal Gastrointestinal: Denies abdominal pain Vital Signs Vital Signs Vital Signs: 02/08/25 11:55 02/08/25 12:08 Temperature 96.9 F L Temperature Source Temporal Pulse Rate 53 L Respiratory Rate 14 Respiratory Effort Normal Non-Labored Respiratory Pattern Normal Blood Pressure 97/65 Blood Pressure Mean 75 Pulse Ox 98 Oxygen Delivery Method Room Air Weight Weight: 56.8 kg Body Mass Index (BMI) 19.5 Physical Exam Const alert and no apparent distress Constitutional Narrative: Elderly male, thin and somewhat cachectic appearing, fatigued appearing, alert and oriented to person and place but not time, otherwise laying back comfortably in bed and in no acute distress. General Appearance: cooperative and comfortable HEENT normocephalic, head/scalp atraumatic, hearing grossly normal bilaterally and nasal mucous membranes and turbinates normal HEENT Narrative: Dry mucous membranes. Eyes PERRL, EOMs intact bilaterally and conjunctivae normal Neck full ROM Chest inspection of chest normal Resp normal respiratory effort, normal air movement, no use of accessory muscles and clear to auscultation bilaterally Cardio no murmurs and peripheral pulses 2+ throughout Cardio Narrative: Bradycardic, regular rhythm. GI normal to inspection, nondistended, normoactive bowel sounds, soft to palpation, non-tender and non-distended Back/Spine normal ROM Extremity normal to inspection and no pedal edema Psych Psych Narrative: Flat affect. Results Lab / Micro Data 02/08/25 12:22 02/08/25 12:22 Labs: Laboratory Results - last 24 hr 02/08/25 12:22: WBC 5.4, RBC 3.81 L, Hgb 12.1 L, Hct 35.5 L, MCV 93.2, MCH 31.8, MCHC 34.1, RDW Std Deviation 43.7, RDW Coeff of [place] 12.8, Plt Count 121 L, MPV 11.4, Immature Gran % (Auto) 0.400, Neut % (Auto) 74.4 H, Lymph % (Auto) 13.6 L, [place] % (Auto) 10.7 H, Eos % (Auto) 0.7, Baso % (Auto) 0.2, Absolute Neuts (auto) 4.0, Absolute Lymphs (auto) 0.74 L, Nucleated RBC % 0, Sodium 137, Potassium 3.7, Chloride 102, Carbon Dioxide 21.7, Anion Gap 14, BUN 39 H, Creatinine 1.64 H, Estim Creat Clear Calc 27.90 L, Est GFR (MDRD) Non-Af 42 L, BUN/Creatinine Ratio 23.5 H, Glucose 132 H, Calcium 9.2, Total Bilirubin 1.16, AST 19, ALT 9, Alkaline Phosphatase 91, Total Protein 6.7, Albumin 3.9, Globulin 2.8, Albumin/Globulin Ratio 1.4 Imaging Radiology Impression Brain CT 02/08/25 12:10 IMPRESSION: No acute intracranial pathology. Reading [facility] Chest X-Ray 02/08/25 12:10 IMPRESSION: No acute cardiopulmonary process. Reading Location: [facility] Assessment & Plan Assessment/Plan (1) Adult failure to thrive: (2) Dementia: (3) Weakness: PLAN: Plan Patient is an 84-year-old male who presented to [facility] ED on 02/08/2025 with adult failure to thrive. 1. Adult failure to thrive in setting of dementia ? Admit under observation status to [facility]. PT/OT/case management consulted. Nutrition consulted given BMI 19 and concern for malnutrition. Patient alert and oriented x [address] but not time in the ED and had difficulty answering other questions appropriately. Lives at home alone. Suspect he will need either SNF or memory unit placement on discharge. Continue home donepezil and memantine. 2. Depression/anxiety with recent suicidal ideation ? Recent ED visit on 01/23 for suicidal ideation. He apparently put a gun to his head in front of neighbors and said he wanted to end it all. Required inpatient psychiatric hospitalization at [facility] and was apparently started on Risperdal 1 mg twice daily at that time with only some improvement per family. Will continue home Risperdal. 3. Mild creatinine elevation ? Creatinine 1.64, BUN 39 on admit. Baseline creatinine appears to be around 1.3. Suspect mild dehydration secondary to poor p.o. intake at home. Will give 1 L of fluids over several hours on admit. Follow-up a.m. BMP and monitor urine output. 4. Sinus bradycardia ? Sinus bradycardia to the low 50s noted in the ED. Remains normotensive. Presume secondary to home medications of Coreg and donepezil. Will reduce dose of Coreg to only 3.125 mg twice daily. Continue home donepezil. Blood pressure 5. History of CAD with stenting, chronic HFrEF with ischemic cardiomyopathy s/p ICD placement, hypertension, hyperlipidemia, NSVT, reported history of paroxysmal atrial flutter ? History of anterior wall [place] in 2009 requiring stenting. Had resultant ischemic cardiomyopathy with ICD placement in 2012. Last echo in 2019 showed EF 40%, stage I diastolic function, regional wall motion abnormalities noted that were stable from previous. Patient is not on a blood thinner; unclear regarding history of atrial flutter. Decreased Coreg dosing as above and will hold home lisinopril in setting of mild creatinine elevation as above. Is on atorvastatin 80 mg, will reduce to 40 mg given age greater than 75. Continue home aspirin. DVT prophylaxis: Lovenox CODE STATUS: DNR CCA, DNI. This was confirmed with the patient's sister who is patient's medical power of criminal attorney. She notes that this was patient's expressed wishes in the past. Expected disposition: TBD Total clinical time spent by myself addressing the patient's medical issues, reviewing all the data, and collaborating with patient's care team: 75 minutes. Charges/Coding Visit Charges Inpatient E&M: 86801 Init Hosp L3
[2025-02-08 13:51] LABS: Mucous, Urine 0 SEEN /hpf (<or=2+); Red Blood Cells-Urine 0 SEEN /hpf (0-5)
[2025-02-08 13:52] LABS: Color, Urine Yellow (Yellow); Glucose, Dipstick Normal (Normal); Ketone-Dipstick 5 mg/dl (Negative); Leukocyte Esterase-Dipstick Negative /ul (Negative); Nitrite-Dipstick Negative (Negative); Occult Blood-Urine 10 /ul (Negative); Protein-Dipstick 30 mg/dl (Negative); Specific Gravity, Urine 1.025 (1.002-1.030); Urine Bilirubin Dipstick Negative (Negative)
[2025-02-08 14:27] LABS: Squamous Epithelial Cells - UA 0-5 SEEN /hpf (0-5)
[2025-02-08] MEDS: Memantine Hydrochloride 5 MG Tablet PO (20:54)
[2025-02-09 03:00] VITALS: BP 124/65; PULSE 47; RESP 16; TEMP 36.3; O2SAT 95
[2025-02-09 06:28] LABS: Hematocrit 30.8 % (40-54); Hemoglobin 10.6 g/dL (13.0-16.5); Mean Corp Hgb Conc 34.4 g/dL (32-36); Mean Corpuscular Volume 92.5 fL (80-94); Mean Platelet Vol. 11.4 fl (6.2-12.0); Platelet Count 102 K/mm3 (150-450); RBC Distribution Width CV 12.6 % (11.6-14.6); RBC Distribution Width SD 41.6 fl (35.1-43.9); Red Blood Count 3.33 M/mm3 (4.6-6.2); White Blood Count 3.8 K/mm3 (4.4-11.0)
[2025-02-09 06:50] VITALS: O2SAT 95
[2025-02-09 06:56] LABS: Anion Gap 12 (5-15); BUN 31 mg/dL (4-19); BUN/Creat Ratio 28.7 RATIO (10-20); Calcium,Total 8.4 mg/dL (7.6-11.0); Carbon Dioxide 20.2 mmol/L (21.0-32.0); Chloride 107 mmol/L (98-108); Estimated Creatinine Clearance 42.29 ml/min (50-250); Glucose 88 mg/dL (70-99); Potassium 3.5 mmol/L (3.3-5.1)
[2025-02-09 08:06] VITALS: BP 150/79; PULSE 51; RESP 16; TEMP 36.6; O2SAT 95
[2025-02-09] MEDS: Memantine Hydrochloride 5 MG Tablet PO ×2 (08:09→21:57)
[2025-02-09] MEDS: Aspirin E.C. 81 MG Tablet PO (08:09)
--- NOTE | 2025-02-09 09:25 | US_ITS ---
PROCEDURE: TESTICULAR WITH ARTERIAL FLOW 02/09/2025 REASON FOR EXAM: ENLARGED SCROTUM TECHNIQUE: TESTICULAR WITH ARTERIAL FLOW COMPARISON: None FINDINGS: RIGHT testicle: 3.3 cm x 2.8 cm x 1.6 cm Right epididymis: 1.6 cm x 1.2 cm x 0.5 cm. LEFT testicle: 4.1 cm x 2.9 cm x 2.5 cm Left epididymis: 1.3 cm x 1.3 cm x 0.8 cm. Other findings: Is a large right hydrocele. This is loculated. The overlying scrotal skin is thickened measuring 7 mm. Small left hydrocele. US/Testicular with Arterial Flow IMPRESSION: Large right hydrocele with scrotal skin thickening as described. Small left hydrocele. Reading Location: [id number]
--- NOTE | 2025-02-09 09:36 | PN_ITS ---
Subjective Subjective Patient seen and examined. HE was brought in o.a of failure to thrive, weakness and debility. He had no active complaints. Review of systems is otherwise negative. Objective Data Objective Data Vital Signs: Vital Signs Temp Pulse Resp BP Pulse Ox O2 Del Method 98 F 51 L 16 150/79 H 95 Room Air 02/09/25 08:06 02/09/25 08:06 02/09/25 08:06 02/09/25 08:06 02/09/25 08:06 02/09/25 08:06 Oxygen Delivery Method Room Air Weight: 125 lb 0.034 oz Body Mass Index (BMI) 19.5 Intake & Output: Intake and Output for Last 24 Hours 02/07/25 02/08/25 02/09/25 23:59 23:59 23:59 Intake Total 1315.0 / 1435.0 120 / 120 Output Total 0 / 0 Balance 1315.0 / 1435.0 120 / 120 Medical Nutrition Assessment Dietitian: Malnutrition Criteria Met Start: 02/09/25 08:40 Freq: Status: Active Protocol: Document 02/09/25 08:40 RMA (Rec: 02/09/25 08:40 RMA [id number]) Nutrition Malnutrition Evidence of Yes Malnutrition Exists Malnutrition (severe Chronic ): Evidenced By Suboptimal Energy Intake (Moderate),Weight Loss (Severe ),Physical Changes (Moderate) Clinical Problem Chronic Disease or Condition Related Malnutrition Etiology severe protein-calorie malnutrition in the context of chronic disease and debility related to inadequate energy/oral intake Signs/Symptoms as evidenced by PO meeting less than 75% estimated nutrition needs x past 1 month, ~8% unintentional weight loss x past 1-2 months, BMI 19.6 and moderate muscle wasting/fat depletion in face, clavicle, arms and legs. Status Active Problem Recommendation Dietitian Will liberalize diet to Regular in view of signs/ Recommendations/ symptoms of malnutrition. Changes Will add 120mL ensure plus HP 4 times per day w/ medpass. Additional ONS as needed once PO better established with meals. Lab / Micro Data 02/09/25 05:53 02/09/25 05:53 Labs: Laboratory Results - last 24 hr 02/08/25 12:22: WBC 5.4, RBC 3.81 L, Hgb 12.1 L, Hct 35.5 L, MCV 93.2, MCH 31.8, MCHC 34.1, RDW Std Deviation 43.7, RDW Coeff of Neva 12.8, Plt Count 121 L, MPV 11.4, Immature Gran % (Auto) 0.400, Neut % (Auto) 74.4 H, Lymph % (Auto) 13.6 L, [place] % (Auto) 10.7 H, Eos % (Auto) 0.7, Baso % (Auto) 0.2, Absolute Neuts (auto) 4.0, Absolute Lymphs (auto) 0.74 L, Nucleated RBC % 0, Sodium 137, Potassium 3.7, Chloride 102, Carbon Dioxide 21.7, Anion Gap 14, BUN 39 H, Creatinine 1.64 H, Estim Creat Clear Calc 27.90 L, Est GFR (MDRD) Non-Af 42 L, BUN/Creatinine Ratio 23.5 H, Glucose 132 H, Calcium 9.2, Total Bilirubin 1.16, AST 19, ALT 9, Alkaline Phosphatase 91, Total Protein 6.7, Albumin 3.9, Globulin 2.8, Albumin/Globulin Ratio 1.4 02/08/25 13:40: Urine Color Yellow, Urine Clarity Clear, Urine pH 5.0, Ur Specific [place] 1.025, Urine Protein 30 H, Urine Glucose (UA) Normal, Urine Ketones 5 H, Urine Occult Blood 10 H, Urine Nitrite Negative, Urine Bilirubin Negative, Urine Urobilinogen 1 H, Ur Leukocyte Esterase Negative, Urine RBC 0 SEEN, Urine WBC 0 SEEN, Ur Squamous Epith Cells 0-5 SEEN, Urine Bacteria 0 SEEN, Urine Mucus 0 SEEN 02/09/25 05:53: WBC 3.8 L, RBC 3.33 L, Hgb 10.6 L, Hct 30.8 L, MCV 92.5, MCH 31.8, MCHC 34.4, RDW Std Deviation 41.6, RDW Coeff of Neva 12.6, Plt Count 102 L, MPV 11.4, Sodium 139, Potassium 3.5, Chloride 107, Carbon Dioxide 20.2 L, Anion Gap 12, BUN 31 H, Creatinine 1.08, Estim Creat Clear Calc 42.29 L, Est GFR (MDRD) Non-Af 69, BUN/Creatinine Ratio 28.7 H, Glucose 88, Calcium 8.4 Micro: Microbiology 02/08/25 12:50 Mucosa - Nose SARS-CoV-2, Influenza & RSV (PCR) - Final Radiography Diagnostic Testing: Radiology Impression Brain CT 02/08/25 12:10 IMPRESSION: No acute intracranial pathology. Reading Location: [facility] Chest X-Ray 02/08/25 12:10 IMPRESSION: No acute cardiopulmonary process. Reading Location: [facility] Physical Exam Const alert, oriented x3 and no apparent distress Constitutional Narrative: flat affect General Appearance: cooperative HEENT normocephalic, head/scalp atraumatic, moist oral mucous membranes and oropharynx normal Eyes PERRL and EOMs intact bilaterally Neck no lymphadenopathy and supple Lymph Lymphatic: no lymphadenopathy noted Resp normal respiratory effort, normal air movement and clear to auscultation bilaterally Cardio regular rate, regular rhythm, S1 normal heart sound, S2 normal heart sound and no murmurs GI normal to inspection, nondistended, normoactive bowel sounds, soft to palpation and non-tender GI Narrative: has an enlarged scrotum, which is non-tender and nonerythematous. Extremity normal capillary refill, no clubbing, cyanosis or edema and no calf tenderness General Extremity: no tenderness to palpation of joints or extremities Skin General Skin Exam: no breakdown Neuro CN's II-XII intact bilaterally and no focal motor deficits Motor Exam: strength 5/5 throughout and general weakness Psych thought process normal and cooperative Appearance: appropriate Assessment & Plan Assessment/Plan (1) Adult failure to thrive: (2) Dementia: (3) Weakness: (4) Memory deficit: PLAN: Plan #Debility and adult failure to thrive in the setting of dementia * PT/OT on board. BMI is only 19.6. * Nutrition also consulted. * fall precautions. * on donepezil and memantine * * #Scrotal edema: scrotum edematous. NOn tender and nonerythematous. Get scrotal ultrasound #Depression and anxiety: was recently seen on 01/23/2025 in ED for suicidal ideation. On risperdal. CUrrently not suicidal. #Sinus bradycardia: HR in the 40s-50s. On coreg, with dose reduced to 3.125mg bid. Will monitor #History of CAD s/p stent: had stents in 2009. Last echo in 2019 showed EF of 40% with stage I diastolic dysfunction. On aspirin and statin. Statin dose reduced to 40mg daily in light of advanced age. #HFrEF with ICD: has known EF of 40%. On coreg. Lisinopril held #Hypertension: on coreg. Lisinopril on hold. #Pancytopenia * wbc is 3.8 and Hb is 10.6; platelets are 102. Will monitor closely for now. Has been like this for the whole of January this year. * #History of paroxysmal afib: coreg dose decreased due to bradycardia. DVT prophylaxis: lovenox COde status: DNRCCA no intubation Charges/Coding Visit Charges Inpatient E&M: 16368 Subs Hosp L2
[2025-02-09] MEDS: Ensure Plus High Protein 120 ML LIQUID PO ×3 (13:29→22:02)
[2025-02-09 14:09] VITALS: BP 119/56; PULSE 51; RESP 16; TEMP 36.2; O2SAT 97
--- NOTE | 2025-02-09 14:26 | CASEMGMT ---
Addendum entered by Mellisa Barth 02/09/25 15:10: SW received a return call from pt sister, Kymberly. Kymberly reports that she has already set up for pt to go to [facility]. Kymberly reports that pt doesn't have much resources, but planned to private pay and use all resources. Kymberly reports that there is no other living family than her. Kymberly reports that pt does not have case management or PCP. Kymberly reports that [facility]. ROHAN completed referral to [facility]. ROHAN completed referral to [facility]. ROHAN remains available to follow. HELENA Bella Original Note: Social Work- SW called and left a voicemail for pt sister requesting a call back. Pt is oriented x 1 and not able to participate in discussions regarding d/c plans. ROHAN remains available to follow. HELENA Bella
--- NOTE | 2025-02-09 14:59 | CASEMGMT ---
Pt with dementia and unable to sign RUBIO form. Spoke with pt sister Kymberly Kamara RN, CM explained RUBIO form to pt sister, patient sister voiced understanding. This was witnessed by SW. Provided pt with copy of form in room and filed original in chart. Patient sister had no further questions or concerns at this time.
[2025-02-09 21:00] VITALS: BP 118/79; PULSE 65; RESP 16; TEMP 36.3; O2SAT 98
[2025-02-10 03:00] VITALS: BP 106/69; PULSE 57; RESP 16; TEMP 36.6; O2SAT 95
[2025-02-10 06:22] LABS: Hematocrit 29.3 % (40-54); Hemoglobin 10.2 g/dL (13.0-16.5); Immature Granulocytes Count 0.030 X10^3/uL (0.0-0.0); Mean Corp Hgb Conc 34.8 g/dL (32-36); Mean Corpuscular Volume 92.1 fL (80-94); Mean Platelet Vol. 11.6 fl (6.2-12.0); NRBC Flagged by Analyzer 0 % (0-5); Platelet Count 107 K/mm3 (150-450); RBC Distribution Width CV 12.6 % (11.6-14.6); RBC Distribution Width SD 42.1 fl (35.1-43.9); Red Blood Count 3.18 M/mm3 (4.6-6.2); White Blood Count 4.3 K/mm3 (4.4-11.0)
[2025-02-10 06:51] LABS: Anion Gap 11 (5-15); BUN 31 mg/dL (4-19); BUN/Creat Ratio 26.4 RATIO (10-20); Calcium,Total 8.6 mg/dL (7.6-11.0); Carbon Dioxide 21.5 mmol/L (21.0-32.0); Chloride 106 mmol/L (98-108); Estimated Creatinine Clearance 38.71 ml/min (50-250); Glucose 99 mg/dL (70-99); Potassium 3.5 mmol/L (3.3-5.1)
[2025-02-10] MEDS: Ensure Plus High Protein 120 ML LIQUID PO ×2 (08:54→12:15)
[2025-02-10] MEDS: Aspirin E.C. 81 MG Tablet PO (08:54)
[2025-02-10] MEDS: Memantine Hydrochloride 5 MG Tablet PO (08:54)
[2025-02-10 09:00] VITALS: BP 130/78; PULSE 63; RESP 18; TEMP 36.6; O2SAT 97
--- NOTE | 2025-02-10 11:05 | TREXTCAR_ITS ---
Diet Diet Order/Speech Therapy: INPATIENT Hospital Diet / Speech Therapy Order(s) 02/09/25 08:41 Diet: Regular - General Food consistency:: Regular Liquid Consistency:: Regular/Thin Routine Orders/Code Status Enema Type: Fleetz Enema Frequency: Daily PRN DC O2, CPAP, BIPAP needs Home O2 Discharge instructions: No Therapies Weight Bearing: Weight bearing as tolerated Physical Therapy: Eval and Treat Occupational Therapy: Eval and Treat Problem/Diagnosis (1) Adult failure to thrive: Status: Acute Code(s): R62.7 - Adult failure to thrive (2) Dementia: Status: Acute Code(s): F03.90 - Unspecified dementia, unspecified severity, without behavioral disturbance, psychotic disturbance, mood disturbance, and anxiety (3) Weakness: Status: Acute Code(s): R53.1 - Weakness (4) Memory deficit: Status: Chronic Code(s): R41.3 - Other amnesia Plan #Debility and adult failure to thrive in the setting of dementia * PT/OT on board. BMI is only 19.6. * Nutrition also consulted. * fall precautions. * on donepezil and memantine * * #Scrotal edema: scrotum edematous. NOn tender and nonerythematous. Get scrotal ultrasound #Depression and anxiety: was recently seen on 01/23/2025 in ED for suicidal ideation. On risperdal. CUrrently not suicidal. #Sinus bradycardia: HR in the 40s-50s. On coreg, with dose reduced to 3.125mg bid. Will monitor #History of CAD s/p stent: had stents in 2009. Last echo in 2019 showed EF of 40% with stage I diastolic dysfunction. On aspirin and statin. Statin dose reduced to 40mg daily in light of advanced age. #HFrEF with ICD: has known EF of 40%. On coreg. Lisinopril held #Hypertension: on coreg. Lisinopril on hold. #Pancytopenia * wbc is 3.8 and Hb is 10.6; platelets are 102. Will monitor closely for now. Has been like this for the whole of January this year. * #History of paroxysmal afib: coreg dose decreased due to bradycardia. DVT prophylaxis: lovenox COde status: DNRCCA no intubation Allergies/Procedures Done in Hospital Allergies No Known Allergies Allergy (Verified 02/08/25 11:55) Procedures: None Type of Care/Length of Stay Estimated LOS: Convalescent Care Less Than 30 days Type of Care Needed: Skilled Rehab Potential: Fair Prognosis: Fair Additional Orders/Day of Discharge Day of Discharge: 02/10/25 Dietary and Speech Recommendations Dietitian Recommendations/Changes: Will liberalize diet to Regular in view of signs/symptoms of malnutrition. Will add 120mL ensure plus HP 4 times per day w/ medpass. Additional ONS as needed once PO better established with meals. Discharge Plan Admission Admit Date/Time: 02/08/25 13:45 Primary Reason for Your Visit: debility and weakness, failure to thrive. Attending Provider: Isadora Arndt Primary Care Provider: Care Physician,No Primary Consulting Providers: Ajith Zimmer Instructions Patient Instructions: ED Hydrocele Non-Communicating Type, ED Weakness Unc ertain Cause Discharge Orders/Prescriptions Prescriptions: New carvedilol 3.125 mg Tablet 3.125 mg PO BIDCM Qty: 60 2RF Continued aspirin [Adult Aspirin Regimen] 81 mg tablet,delayed release (DR/EC) 81 mg PO QDAY atorvastatin 80 mg tablet 80 mg PO QDAY Qty: 90 3RF magnesium hydroxide [Dulcolax (magnesium hydroxide)] 400 mg/5 mL suspension 30 ml PO BID PRN (Reason: constipation) acetaminophen 325 mg capsule 650 mg PO Q6H PRN (Reason: pain) donepezil 10 mg tablet 10 mg PO DAILY risperidone 1 mg tablet 1 mg PO BID memantine 5 mg tablet 5 mg PO BID lisinopril 10 mg tablet 10 mg PO QDAY Qty: 90 3RF Discontinued carvedilol 12.5 mg tablet 12.5 mg PO BID Qty: 180 3RF Referrals / Follow Up: Lukasz Gan MD [Med Staff - Active Staff] - Within 1 Month (see to establish PCP care) Chester Cool MD [Med Staff - Active Staff] - Within 1 Month (see to establish care for hydrocele) Care Physician,No Primary [Primary Care Provider] - Disposition Disposition (needs filled in before D/C Order can be placed): [facility]
--- NOTE | 2025-02-10 11:05 | DS.PCM_ITS ---
Providers Date of Admission: 02/08/25 Date of Discharge: 02/10/25 Primary Care Physician: No Primary Care Phys Reason For Visit: ADULT FAILURE TO THRIVE Diagnosis Discharge Diagnosis (1) Adult failure to thrive: Status: Acute Code(s): R62.7 - Adult failure to thrive (2) Dementia: Status: Acute Code(s): F03.90 - Unspecified dementia, unspecified severity, without behavioral disturbance, psychotic disturbance, mood disturbance, and anxiety (3) Weakness: Status: Acute Code(s): R53.1 - Weakness (4) Memory deficit: Status: Chronic Code(s): R41.3 - Other amnesia Plan #Debility and adult failure to thrive in the setting of dementia * PT/OT on board. BMI is only 19.6. * Nutrition also consulted. * fall precautions. * on donepezil and memantine * * #Scrotal edema: scrotum edematous. NOn tender and nonerythematous. Get scrotal ultrasound #Depression and anxiety: was recently seen on 01/23/2025 in ED for suicidal ideation. On risperdal. CUrrently not suicidal. #Sinus bradycardia: HR in the 40s-50s. On coreg, with dose reduced to 3.125mg bid. Will monitor #History of CAD s/p stent: had stents in 2009. Last echo in 2019 showed EF of 40% with stage I diastolic dysfunction. On aspirin and statin. Statin dose reduced to 40mg daily in light of advanced age. #HFrEF with ICD: has known EF of 40%. On coreg. Lisinopril held #Hypertension: on coreg. Lisinopril on hold. #Pancytopenia * wbc is 3.8 and Hb is 10.6; platelets are 102. Will monitor closely for now. Has been like this for the whole of January this year. * #History of paroxysmal afib: coreg dose decreased due to bradycardia. DVT prophylaxis: lovenox COde status: DNRCCA no intubation Medications at Discharge Home Medications aspirin 81 mg tablet,delayed release (Adult Aspirin Regimen) 81 mg PO QDAY 07/23/17 atorvastatin 80 mg tablet 80 mg PO QDAY #90 tabs 10/28/19 lisinopril 10 mg tablet 10 mg PO QDAY #90 tabs 09/23/24 acetaminophen 325 mg capsule 650 mg PO Q6H PRN pain 02/08/25 donepezil 10 mg tablet 10 mg PO DAILY 02/08/25 magnesium hydroxide 400 mg/5 mL oral suspension (Dulcolax (magnesium hydroxide)) 30 ml PO BID PRN constipation 02/08/25 memantine 5 mg tablet 5 mg PO BID 02/08/25 risperidone 1 mg tablet 1 mg PO BID 02/08/25 carvedilol 3.125 mg tablet 3.125 mg PO BIDCM #60 tabs 02/10/25 Hospital Course Operations None Procedures None Summary of Care Provided Minutes Spent on Discharge: 45 Hospital Course: Patient is a 84 y/o male with a PMH as outlined who was admitted via the ED on 02/10/2025 with a complaitn of weakness and adult failure to thrive. HE lived at home alone and had been seen in the ED on 01/23/2025 for suicidal ideation and admitted to a psych facility. He did have a history of underlying dementia and his sister was his medical power of assistant county attorney. He came back to the ED after being brought in to the ED. His sister said he had not been eating and drinking well, and his sister was concerned he had not been taking care of himself well at home. In the ED, he was noted to be bradycardic with HR in the low 50s. Labs were significant for Cr of 1.64 with a baseline of 1.3. CT of the brain showed no acute intracranial pathology. Labs were also unremarkable. HE was admitted and managed for debility and weakness with failure to thrive. PT/OT was consulted. He worked with PT.OT. His carvedilol dose was reduced to 3.125mg bid from 12.5mg bid due to bradycardia. He was noted to have an enlarged scrotum, so he had a scrotal USG which showed a large right hydrocele with scrotal skin thickening and small left hydrocele. He was therefore referred to urology on outpatient basis. He was discharged to SNF on 02/10/2025. He is to follow up with his PCP and urologist within 1-2 weeks. Patient seen and examined. HE had no active complaints and had an uneventful night. Labs and vitals reviewed. Home meds reviewed and reconciled. Physical Exam Const alert, oriented x3 and no apparent distress Constitutional Narrative: flat affect General Appearance: cooperative and comfortable HEENT normocephalic, head/scalp atraumatic, hearing grossly normal bilaterally, nasal mucous membranes and turbinates normal, moist oral mucous membranes and oropharynx normal Mouth: oral and palatal mucosa normal Eyes PERRL, EOMs intact bilaterally and conjunctivae normal Neck full ROM, no lymphadenopathy and supple Lymph Lymphatic: no lymphadenopathy noted Chest inspection of chest normal Resp normal respiratory effort, normal air movement, no use of accessory muscles and clear to auscultation bilaterally Cardio regular rate, regular rhythm, S1 normal heart sound, S2 normal heart sound, no murmurs and peripheral pulses 2+ throughout GI normal to inspection, nondistended, normoactive bowel sounds, soft to palpation, non-tender and non-distended GI Narrative: has an enlarged scrotum, which is non-tender and nonerythematous. Back/Spine normal ROM Extremity normal to inspection, full ROM, normal capillary refill, no clubbing, cyanosis or edema, no calf tenderness and no pedal edema General Extremity: no tenderness to palpation of joints or extremities Skin no rashes or lesions noted General Skin Exam: no breakdown Neuro CN's II-XII intact bilaterally, moves all extremities and no focal motor deficits Sensorium / Orientation: awake and alert Motor Exam: general weakness Psych Psych Narrative: Flat affect. Appearance: appropriate Medical Records Data Medical Nutrition Assessment Dietitian: Malnutrition Criteria Met Start: 02/09/25 08:40 Freq: Status: Active Protocol: Document 02/09/25 08:40 RMA (Rec: 02/09/25 08:40 RMA [id number]) Nutrition Malnutrition Evidence of Yes Malnutrition Exists Malnutrition (severe Chronic ): Evidenced By Suboptimal Energy Intake (Moderate),Weight Loss (Severe ),Physical Changes (Moderate) Clinical Problem Chronic Disease or Condition Related Malnutrition Etiology severe protein-calorie malnutrition in the context of chronic disease and debility related to inadequate energy/oral intake Signs/Symptoms as evidenced by PO meeting less than 75% estimated nutrition needs x past 1 month, ~8% unintentional weight loss x past 1-2 months, BMI 19.6 and moderate muscle wasting/fat depletion in face, clavicle, arms and legs. Status Active Problem Recommendation Dietitian Will liberalize diet to Regular in view of signs/ Recommendations/ symptoms of malnutrition. Changes Will add 120mL ensure plus HP 4 times per day w/ medpass. Additional ONS as needed once PO better established with meals. Weight / BMI Weight Weight: 125 lb 0.034 oz Body Mass Index (BMI) 19.5 ABG / Lab / Microbiology Data 02/10/25 05:28 02/10/25 05:28 Laboratory: Laboratory Results - last 24 hr 02/10/25 05:28: WBC 4.3 L, RBC 3.18 L, Hgb 10.2 L, Hct 29.3 L, MCV 92.1, MCH 32.1 H, MCHC 34.8, RDW Std Deviation 42.1, RDW Coeff of Neva 12.6, Plt Count 107 L, MPV 11.6, Immature Gran % (Auto) 0.700, Neut % (Auto) 66.9, Lymph % (Auto) 20.9, [place] % (Auto) 10.1 H, Eos % (Auto) 0.9, Baso % (Auto) 0.5, Absolute Neuts (auto) 2.8, Absolute Lymphs (auto) 0.89, Nucleated RBC % 0, Sodium 138, Potassium 3.5, Chloride 106, Carbon Dioxide 21.5, Anion Gap 11, BUN 31 H, Creatinine 1.18, Estim Creat Clear Calc 38.71 L, Est GFR (MDRD) Non-Af 62, B UN/Creatinine Ratio 26.4 H, Glucose 99, Calcium 8.6 Microbiology: Microbiology 02/08/25 12:50 Mucosa - Nose SARS-CoV-2, Influenza & RSV (PCR) - Final Radiography Diagnostic Testing: Radiology Impression Testicular Ultrasound 02/09/25 09:25 IMPRESSION: Large right hydrocele with scrotal skin thickening as described. Small left hydrocele. Reading Location: [id number] D/C Instructions Discharge Activity: Return to Normal Activity Call your doctor if you observe: Fever of 101 or Higher, Shortness of breath, Dizziness, Swelling in the ankles and Chest pain DC O2, CPAP, BIPAP Needs Home O2 Discharge instructions: No DC home with Oxygen: No Meaningful Use Info Meaningful Use Meaningful Use Diagnoses (Choose all that apply): None applicable Discharge Plan Admission Admit Date/Time: 02/08/25 13:45 Primary Reason for Your Visit: debility and weakness, failure to thrive. Attending Provider: Isadora Arndt Primary Care Provider: Care Physician,No Primary Consulting Providers: Ajith Zimmer Instructions Patient Instructions: ED Hydrocele Non-Communicating Type, ED Weakness Uncertain Cause Discharge Orders/Prescriptions Prescriptions: New carvedilol 3.125 mg Tablet 3.125 mg PO BIDCM Qty: 60 2RF Continued aspirin [Adult Aspirin Regimen] 81 mg tablet,delayed release (DR/EC) 81 mg PO QDAY atorvastatin 80 mg tablet 80 mg PO QDAY Qty: 90 3RF magnesium hydroxide [Dulcolax (magnesium hydroxide)] 400 mg/5 mL suspension 30 ml PO BID PRN (Reason: constipation) acetaminophen 325 mg capsule 650 mg PO Q6H PRN (Reason: pain) donepezil 10 mg tablet 10 mg PO DAILY risperidone 1 mg tablet 1 mg PO BID memantine 5 mg tablet 5 mg PO BID lisinopril 10 mg tablet 10 mg PO QDAY Qty: 90 3RF Discontinued carvedilol 12.5 mg tablet 12.5 mg PO BID Qty: 180 3RF Referrals / Follow Up: Lukasz Gan MD [Med Staff - Active Staff] - Within 1 Month (see to establish PCP care) Chester Cool MD [Med Staff - Active Staff] - Within 1 Month (see to establish care for hydrocele) Care Physician,No Primary [Primary Care Provider] - Disposition Disposition (needs filled in before D/C Order can be placed): [facility] Charges/Coding Visit Charges Inpatient E&M: 19609 Disch Hosp >30min
--- NOTE | 2025-02-10 12:22 | CASEMGMT ---
Social Work Physician updated and pt is ready for discharge today.? PASRR form completed in [facility] and sent along with discharge orders to [facility] via [facility].? Transportation arranged with [facility] for 14:00 pickup via cot, as pt O x 1.? SW met with pt and they are agreeable to discharge plan as stated above.? Pt sister and bedside nurse notified of discharge time. Disposition: [facility], intermediate level of care HELENA Bella
--- NOTE | 2025-02-10 12:35 | CASEMGMT ---
Addendum entered by Charisse Mendez 02/10/25 12:37: Pt nurse aware of pickup time and that report may be called to [facility]. Original Note: Completed transport form, copy placed on chart and original given to paraffin plant operator. TC to Physicians, pt set up for a 2pm pickup to transport to [facility].
[2025-02-10 14:50] VITALS: BP 110/75; PULSE 67; RESP 14; TEMP 36.8; O2SAT 97
== END 2025-02-10 15:37 | disposition intermediate care facility (04) ==
LOC: ED 14:15 → MS3 15:12
PROVIDERS: Admitting Provider Hospitalist; Emergency Provider Emergency Medicine; Visit Provider Student in an Organized Health Care Education/Training Program
DX: R00.1 Bradycardia, unspecified (principal); D61.818 Other pancytopenia; I50.22 Chronic systolic (congestive) heart failure; I11.0 Hypertensive heart disease with heart failure; F03.90 Unspecified dementia, unspecified severity, without behavioral disturbance, psychotic disturbance, mood disturbance, and anxiety; I48.0 Paroxysmal atrial fibrillation; R53.1 Weakness; I25.10 Atherosclerotic heart disease of native coronary artery without angina pectoris; N43.3 Hydrocele, unspecified; R53.81 Other malaise; E78.5 Hyperlipidemia, unspecified; R62.7 Adult failure to thrive; I25.5 Ischemic cardiomyopathy; Z79.899 Other long term (current) drug therapy; Z79.82 Long term (current) use of aspirin; Z95.810 Presence of automatic (implantable) cardiac defibrillator; Z95.5 Presence of coronary angioplasty implant and graft; F41.9 Anxiety disorder, unspecified; F32.A Depression, unspecified; Z66 Do not resuscitate; E43 Unspecified severe protein-calorie malnutrition; Z68.1 Body mass index [BMI] 19.9 or less, adult; N50.89 Other specified disorders of the male genital organs; R60.0 Localized edema
CPT/HCPCS: 36415; 70450; 71045; 76870; 80048; 80053; 81001; 85025; 85027; 87631; 93005; 93976; 96360; 96361; 96372; 97161; 97165; 97802; 99221; 99284; A4216; G0378

== ENCOUNTER → 2025-03-01 | Outpatient (REF) | payer MEDICARE, SELFPAY ==
[2025-03-01 10:04] LABS: Anion Gap 11 (5-15); BUN 16 mg/dL (4-19); BUN/Creat Ratio 15.2 RATIO (10-20); Calcium,Total 8.6 mg/dL (7.6-11.0); Carbon Dioxide 23.1 mmol/L (21.0-32.0); Chloride 104 mmol/L (98-108); Cholesterol 81 mg/dL (<=200); Glucose 75 mg/dL (70-99); Low Density Lipoprotein Calc. 30 mg/dL; Potassium 3.9 mmol/L (3.3-5.1); Triglycerides 79 mg/dL; Very Low Density Lipoprotein 16 mg/dL (5-40); cholesterol:hdl ratio screen 2.34
== END ==
LOC: OLS.WCC 05:00
PROVIDERS: Visit Provider Family Medicine
DX: E78.5 Hyperlipidemia, unspecified (principal); R00.1 Bradycardia, unspecified; I48.92 Unspecified atrial flutter; N17.0 Acute kidney failure with tubular necrosis; Z95.0 Presence of cardiac pacemaker
CPT/HCPCS: 36415; 80048; 80061

== ENCOUNTER → 2025-03-02 05:00 | Outpatient (REF) | payer MEDICARE, SELFPAY ==
--- OUTSIDE RECORDS SUMMARY | 2025-03-02 04:30 | XMS RPT_ITS | CCD ---
Author Organization [facility] Care Team Providers Care Clay Thrower Name Role Phone CHERYL Herrera, Gina Arteaga Unavailable Unavailable CHERYL Herrera, Gina Arteaga Unavailable Unavailable Saritha Ram Y Unavailable Unavailable MD Conde Cyril S Unavailable CHERYL Herrera, Gina Arteaga Unavailable Unavailable Alisia Vasquez Unavailable Mine Hernandez RN Unavailable Unavailable Leanna, Harumi Y Unavailable Unavailable CHERYL Herrera, Gina Arteaga Unavailable Unavailable Leanna, Thaddeusumi Y Unavailable Unavailable Care Physician, No Primary Primary Care Provider Unavailable Dr. Wolfgang Conde Attending Provider [phone] Roof TROLLEY CAR OVERHAULER, TROLLEY CAR OVERHAULER-C Marcelino Johnson Attending Provider Care Physician, No Primary Referring Provider Un available Care Physician, No Primary Primary Care Provider Unavailable Care Physician, No Primary Referring Provider Un available Toya Herrera Attending Provider Unavailable Roof TROLLEY CAR OVERHAULER, TROLLEY CAR OVERHAULER-C Marcelino Johnson Attending Provider Dr. Wolfgang Conde Attending Provider [phone] Wolfgang Conde Referring Provider [phone] Care Physician, No Primary Primary Care Provider Unavailable Care Physician, No Primary Referring Provider Un available Toya Herrera Attending Provider Unavailable Roof TROLLEY CAR OVERHAULER-C, Marcelino Johnson Attending Provider Dr. Wolfgang Conde MD Attending Provider [phone] Dr. Wolfgang Conde MD Referring Provider Care Physician, No Primary Primary Care Provider Unavailable Care Physician, No Primary Referring Provider Un available Dr. Henry Florentino DO Emergency Provider Dr. Henry Florentino DO Attending Provider Alejandro DO, Dr. Rodriguez Emergency Provider [phone] Goran ALVA, Dr. Canseco Admit Provider [phone] Goran ALVA, Dr. Canseco Attending Provider Goran ALVA, Dr. Canseco Other Provider Hair REZA, Dr. Isadora Tirado Attending Provider Hair REZA, Dr. Isadora Tirado Other Provider Kyleigh TROLLEY CAR OVERHAULER, Marcelino Johnson Attending Unavailable Care Physician, No Primary Primary Care Unava ilable Care Physician, No Primary Referring Unava ilable Care Physician, No Primary Primary Care Unava ilable Ajith Zimmer Attending Unavailable Ajith Zimmer Consulting Unavailable Ajith Zimmer Admitting Unavailable Isadora Arndt Attending Unavailable Isadora Arndt Consulting Unavailable Care Physician, No Primary Primary Care Unava ilable Hair, Isadora Tirado Attending Unavailable Ajith Zimmer Consulting Unavailable Ajith Zimmer Admitting Unavailable Care Physician, No Primary Primary Care Unava ilable Elton, Wolfgang Attending Unavailable Elton, Ulysses Referring Unavailable Elton, Wolfgang Attending Unavailable Care Physician, No Primary Primary Care Unava ilable Elton, Wolfgang Attending Unavailable Elton, Ulysses Referring Unavailable Elton, Wolfgang Attending Unavailable Care Physician, No Primary Primary Care Unava ilable Elton, Ulysses Attending Unavailable Elton, Wolfgang Referring Unavailable Care Physician, No Primary Primary Care Unava ilable Henry Florentino Attending Unavailabl e Care Physician, No Primary Referring Unava ilable Care Physician, No Primary Primary Care Unava ilable Marcelino Arizmendi NP Attending Unavailable Care Physician, No Primary Primary Care Unava ilable Elton, Wolfgang Attending Unavailable Care Physician, No Primary Primary Care Unava ilable Care Physician, No Primary Referring Unava ilable Kyleigh TROLLEY CAR OVERHAULERMarcelino Attending Unavailable Medications Current Medications Medication Drug Class(es) Dates Sig (Normalized) Sig (Original) acetaminophen 325 mg oral capsule (2 sources) Start: 02-08-2025 take 2 capsules by mouth every six hours as needed for pain Acetaminophen 325 mg capsule Active 650 mg PO EVERY 6 HOURS as needed for pain Lorene 29th, 2025 12:00am aspirin 81 mg delayed release oral tablet (20 sources) Nonsteroidal Anti-inflammatory Drug Start: 07-23-2017 take 1 tablet by mouth once daily Aspirin (Adult Aspirin Regimen) 81 mg tablet,delayed release (DR/EC) Active 81 mg PO daily July 23, 2017 1:00am Start: 11-20-2010 take 1 tablet by cydney th once daily ASPIRIN 81 MG TABS One tablet by mouth daily ASPIRIN [id number] Deepak Dawson MD Start: 11-20-2010 take 1 tablet by cydney th once daily ASPIRIN 81 MG TABS One tablet by mouth daily ASPIRIN [id number] Tricia M Jason Start: 11-20-2010 take 1 tablet by cydney th once daily ASPIRIN EC 81 MG TBEC One tablet by mouth daily ASPIRIN [id number] Jeimy Mendez RN carvedilol 3.125 mg oral tablet (20 sources) alpha-Adrenergic Juanito, beta-Adrenergic Juanito Start: 02-10-2025 take 1 tablet by mouth twice daily at mealtime Carvedilol 3.125 mg Tablet Active 3.125 mg PO TWICE DAILY WITH MEALS 60 2 February 10, 2025 12:00am Start: 11-10-2023 End: 02-10-2025 take 1 tablet by mouth twice daily Carvedilol 12.5 mg tablet Discontinued 12.5 mg PO TWICE A DAY 180 3 September 23, 2024 2:25pm February 10, 2025 11:02am Start: 07-23-2017 End: 11-10-2023 take 1 tablet by mouth twice daily Carvedilol 6.25 mg tablet Discontinued 0 .ROUTE .COMPLEX 180 3 November 12, 2022 9:01am July 17, 2023 2:48pm TAKE 1 TABLET BY MOUTH TWICE A DAY Start: 11-20-2010 take 1 tablet by cydney th twice daily COREG 6.25 MG TABS One tablet by mouth twice daily CARVEDILOL [id number] Wolfgang Conde MD donepezil hydrochloride 10 mg oral tablet (2 sources) Start: 02-08-2025 take 1 tablet by mouth once daily Donepezil 10 mg tablet Active 10 mg PO DAILY February 08, 2025 12:00am Magnesium Hydroxide (2 sources) Start: 02-08-2025 take 1 mL by mouth twice daily as needed for constipation Magnesium Hydroxide (Dulcolax (Magnesium Hydroxide)) 400 mg/5 mL suspension Active 30 mL PO TWICE A DAY as needed for constipation February 08, 2025 12:00am memantine hydrochloride 5 mg oral tablet (2 sources) Y-pvlaio-W-asparta te Receptor Antagonist Start: 02-08-2025 take 1 tablet by mouth twice daily Memantine 5 mg tablet Active 5 mg PO TWICE A DAY February 08, 2025 12:00am risperiDONE 1 mg oral tablet (2 sources) Atypical Antipsychotic Start: 02-08-2025 take 1 tablet by mouth twice daily Risperidone 1 mg tablet Active 1 mg PO TWICE A DAY February 08, 2025 12:00am Completed/Discontinued Medications Medication Drug Class(es) Dates Sig (Normalized) Sig (Original) atorvastatin 80 mg oral tablet (20 sources) HMG-CoA Reductase Inhibitor Start: 07-23-2017 End: 10-28-2019 take 1 tablet by mouth once daily Atorvastatin 80 mg tablet Discontinued 80 mg PO daily 90 3 January 15, 2018 9:02am February 09, 2019 3:05pm Start: 11-20-2010 take 1 tablet by cydney th once daily LIPITOR 80 MG TABS One tablet by mouth daily ATORVASTATIN CALCIUM [id number] Wolfgang Conde MD clopidogrel 75 mg oral tablet (20 sources) P2Y12 Platelet Inhibitor Start: 07-23-2017 End: 07-17-2023 take 1 tablet by mouth once daily Clopidogrel 75 mg tablet Discontinued 0 .ROUTE .COMPLEX 90 November 12, 2022 9:01am July 17, 2023 2:48pm TAKE 1 TABLET BY MOUTH EVERY DAY Start: 11-20-2010 take 1 tablet by cydney th once daily PLAVIX 75 MG TABS One tablet by mouth daily CLOPIDOGREL BISULFATE [id number] Jeimy Huang PA-C lisinopril 10 mg oral tablet (20 sources) Angiotensin Converting Enzyme Inhibitor Start: 07-17-2023 End: 09-23-2024 take 1 tablet by mouth once daily Lisinopril 10 mg tablet Discontinued 10 mg PO daily 90 September 16, 2023 2:00pm September 23, 2024 2:25pm Start: 04-10-2023 End: 07-17-2023 take 1 tablet by mouth once daily Lisinopril 5 mg tablet Discontinued 5 mg PO daily 90 April 10, 2023 1:28pm July 17, 2023 3:06pm Start: 07-23-2017 End: 04-10-2023 take 1 tablet by mouth once daily Lisinopril 2.5 mg tablet Discontinued 2.5 mg PO daily 90 January 13, 2023 8:11am April 10, 2023 1:28pm Start: 11-20-2010 take 1 tablet by cydney th once daily LISINOPRIL 2.5 MG TABS One tablet by mouth daily LISINOPRIL [id number] Wolfgang Conde MD warfarin sodium 1 mg oral tablet (20 sources) Vitamin K Antagonist Start: 11-20-2010 End: 10-11-2011 take 1 tablet by mouth once daily in the evening, then take 2.5 tablets by mouth, then take 3.5 tablets by mouth COUMADIN 1 MG TABS 1 tablet by mouth every evening with a 2.5mg tablet to = 3.5 WARFARIN SODIUM [id number] Tricia Gomez Start: 11-20-2010 End: 10-11-2011 take 1 tablet by mouth once daily in the evening, then take 1 tablet by mouth COUMADIN 2.5 MG TABS 1 tablet by mouth every evening with a 1mg tablet to - 3.5 mg WARFARIN SODIUM [id number] Wolfgang Conde MD Problems Active Problems Problem [...] Onset: 07-23-2012 07-30-2012 Chronic Comment on above: [employer] ICD Dual Chamber Coronary atherosclerosis and other heart disease (20 sources) Coronary arteriosclerosis; Translations: [Coronary atherosclerosis] Onset: 07-28-2009 Resolved: 12-13-2015 11-20-2010 Chronic Comment on above: ATL-HMS-Xnph and Mid LAD w/ Veriflex BMS 3.0 x 20 mm and Micro Map And Chart Mounter BMS 2.5 x 18 mm 07/28/09 Delirium, dementia, and amnestic and other cognitive disorders (4 sources) Dementia; Translations: [Unspecified dementia without behavioral disturbance] Onset: 02-10-2025 02-08-2025 Chronic Disorders of lipid metabolism (20 sources) Hyperlipidemia; Translations: [Hyperlipidemia, unspecified] Onset: 06-10-2012 06-10-2012 Chronic Essential hypertension (16 sources) Essential hypertension; Translations: [Essential (primary) hypertension] 07-17-2023 Chronic Malaise and fatigue (5 sources) Asthenia; Translations: [Weakness] Onset: 02-10-2025 02-08-2025 Episodic Other and ill-defined heart disease (6 sources) Mural thrombus of heart; 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, not elsewhere classified] Onset: 11-20-2010 11-20-2010 Chronic Other nutritional; endocrine; and metabolic disorders (3 sources) Adult failure to thrive syndrome; Translations: [Adult failure to thrive] 02-08-2025 Episodic Other nutritional; endocrine; and metabolic disorders (1 source) Adult failure to thrive; Translations: [Adult failure to thrive] Onset: 02-10-2025 Episodic Apple-; endo-; and myocarditis; cardiomyopathy (10 sources) Cardiomyopathy in diseases classified elsewhere; Translations: [Cardiomyopathy in diseases classified elsewhere] Onset: 11-20-2010 11-20-2010 Chronic Residual codes; unclassified (14 sources) Memory impairment; Translations: [Other amnesia] 11-10-2023 Episodic Residual codes; unclassified (2 sources) Other amnesia; Translations: [Memory loss] Onset: 02-10-2025 11-10-2023 Episodic Suicide and intentional self-inflicted injury (1 source) Suicidal ideations; Translations: [Suicidal ideations] Onset: 01-29-2025 Episodic Unclassified (7 sources) Percutaneous transluminal coronary angioplasty ; Translations: [Coronary angioplasty status] Onset: 11-20-2010 11-20-2010 Unclassified (4 sources) Long-term drug therapy; Translations: [Other mcfp (current) drug therapy] Onset: 11-20-2010 11-20-2010 Unclassified (1 source) see to establish PCP care Unclassified (1 source) see to establish care for hydrocele Unclassified (1 source) Other ventricular tachycardia; Translations: [Other ventricular tachycardia] Onset: 12-20-2024 Past or Other Problems Problem Classification Problem Date Documented Date Episodic/Chronic Cardiac dysrhythmias (18 sources) Bradycardia; Translations: [Bradycardia, unspecified] Onset: 4 [...] 11-20-2010 Episodic Other aftercare (6 sources) Other buttermaker helper (current) drug therapy; Translations: [Other mcfp (current) drug therapy] Onset: 1 11-20-2010 Episodic Other circulatory disease (20 sources) Electrocardiogram abnormal; Translations: [Abnormal electrocardiogram [ECG] [EKG]] Onset: 1 Resolved: 6 11-20-2010 Episodic Results Test Name Value Interpretation Reference Range Facility Basic Metabolic Profile (BMP )on 02-17-2025 BUN Normal - [facility] Comment on above: Result Comment: Canc elled via OM: Order cancelled - Patient discharged Performed By: #### L 500.2500, L100.0100 #### [facility] [address] [place], [address] BUN/CRE Normal - [facility] Comment on above: Result Comment: Canc elled via OM: Order cancelled - Patient discharged Performed By: #### L 500.2500, L100.0100 #### [facility] [address] [place], [address] Calcium Normal 7.6-11.0 [facility] Comment on above: Result Comment: Canc elled via OM: Order cancelled - Patient discharged Performed By: #### L 500.2500, L100.0100 #### [facility] [address] [place], [address] CL Normal 98-108 [facility] Comment on above: Result Comment: Canc elled via OM: Order cancelled - Patient discharged Performed By: #### L 500.2500, L100.0100 #### [facility] [address] [place], [address] CO2 Normal 21.0-32.0 [facility] Comment on above: Result Comment: Canc elled via OM: Order cancelled - Patient discharged Performed By: #### L 500.2500, L100.0100 #### [facility] [address] [place], [address] CREAT,SERUM Normal 0.70-1.20 [facility] Comment on above: Result Comment: Canc elled via OM: Order cancelled - Patient discharged Performed By: #### L 500.2500, L100.0100 #### [facility] [address] [place], [address] eGFR Normal >60 [facility] Comment on above: Result Comment: Canc elled via OM: Order cancelled - Patient discharged Performed By: #### L 500.2500, L100.0100 #### [facility] [address] [place], [address] GAP Normal 5-15 [facility] Comment on above: Result Comment: Canc elled via OM: Order cancelled - Patient discharged Performed By: #### L 500.2500, L100.0100 #### [facility] [address] [place], [address] GLU Normal 70-99 [facility] Comment on above: Result Comment: Canc elled via OM: Order cancelled - Patient discharged Performed By: #### L 500.2500, L100.0100 #### [facility] [address] [place], [address] Potassium Normal 3.3-5.1 [facility] Comment on above: Result Comment: Canc elled via OM: Order cancelled - Patient discharged Performed By: #### L 500.2500, L100.0100 #### [facility] [address] [place], [address] Basic Metabolic Profile (BMP) Normal 133-145 [facility] Comment on above: Result Comment: Canc elled via OM: Order cancelled - Patient discharged Performed By: #### L 500.2500, L100.0100 #### [facility] [address] [place], [address] CBC W/Diff, Automatedon 08-0 -2024 Absolute Neut Normal 2.0-7.7 [facility] Comment on above: Result Comment: Canc elled via OM: Order cancelled - Patient discharged Performed By: #### L 500.2500, L100.0100 #### [facility] [address] [place], [address] HCT Normal 40-54 [facility] Comment on above: Result Comment: Canc elled via OM: Order cancelled - Patient discharged Performed By: #### L 500.2500, L100.0100 #### [facility] [address] [place], [address] HGB Normal 13.0-16.5 [facility] Comment on above: Result Comment: Canc elled via OM: Order cancelled - Patient discharged Performed By: #### L 500.2500, L100.0100 #### [facility] [address] [place], [address] MCH Normal 27.0-32.0 [facility] Comment on above: Result Comment: Canc elled via OM: Order cancelled - Patient discharged Performed By: #### L 500.2500, L100.0100 #### [facility] [address] [place], [address] MCHC Normal 32-36 [facility] Comment on above: Result Comment: Canc elled via OM: Order cancelled - Patient discharged Performed By: #### L 500.2500, L100.0100 #### [facility] [address] [place], [address] MCV Normal 80-94 [facility] Comment on above: Result Comment: Canc elled via OM: Order cancelled - Patient discharged Performed By: #### L 500.2500, L100.0100 #### [facility] [address] [place], [address] NEUT% Normal 47-70 [facility] Comment on above: Result Comment: Canc elled via OM: Order cancelled - Patient discharged Performed By: #### L 500.2500, L100.0100 #### [facility] [address] [place], [address] PLT Normal 150-450 [facility] Comment on above: Result Comment: Canc elled via OM: Order cancelled - Patient discharged Performed By: #### L 500.2500, L100.0100 #### [facility] [address] [place], [address] RBC Normal 4.6-6.2 [facility] Comment on above: Result Comment: Canc elled via OM: Order cancelled - Patient discharged Performed By: #### L 500.2500, L100.0100 #### [facility] [address] [place], [address] RDW CV Normal 11.6-14.6 [facility] Comment on above: Result Comment: Canc elled via OM: Order cancelled - Patient discharged Performed By: #### L 500.2500, L100.0100 #### [facility] [address] [place], [address] RDW SD Normal 35.1-43.9 [facility] Comment on above: Result Comment: Canc elled via OM: Order cancelled - Patient discharged Performed By: #### L 500.2500, L100.0100 #### [facility] [address] [place], [address] WBC Normal 4.4-11.0 [facility] Comment on above: Result Comment: Canc elled via OM: Order cancelled - Patient discharged Performed By: #### L 500.2500, L100.0100 #### [facility] [address] [place], [address] Basic Metabolic Profile (BMP )on 02-16-2025 BUN Normal 4-19 [facility] Comment on above: Result Comment: Canc elled via OM: Order cancelled - Patient discharged Performed By: #### L 500.2500, L100.0100 #### [facility] [address] [place], [address] BUN/CRE Normal 10-20 [facility] Comment on above: Result Comment: Canc elled via OM: Order cancelled - Patient discharged Performed By: #### L 500.2500, L100.0100 #### [facility] [address] [place], [address] Calcium Normal 7.6-11.0 [facility] Comment on above: Result Comment: Canc elled via OM: Order cancelled - Patient discharged Performed By: #### L 500.2500, L100.0100 #### [facility] [address] [place], [address] CL Normal 98-108 [facility] Comment on above: Result Comment: Canc elled via OM: Order cancelled - Patient discharged Performed By: #### L 500.2500, L100.0100 #### [facility] [address] [place], [address] CO2 Normal 21.0-32.0 [facility] Comment on above: Result Comment: Canc elled via OM: Order cancelled - Patient discharged Performed By: #### L 500.2500, L100.0100 #### [facility] [address] [place], [address] CREAT,SERUM Normal 0.70-1.20 [facility] Comment on above: Result Comment: Canc elled via OM: Order cancelled - Patient discharged Performed By: #### L 500.2500, L100.0100 #### [facility] [address] [place], [address] eGFR Normal >60 [facility] Comment on above: Result Comment: Canc elled via OM: Order cancelled - Patient discharged Performed By: #### L 500.2500, L100.0100 #### [facility] [address] [place], [address] GAP Normal 5-15 [facility] Comment on above: Result Comment: Canc elled via OM: Order cancelled - Patient discharged Performed By: #### L 500.2500, L100.0100 #### [facility] [address] [place], [address] GLU Normal 70-99 [facility] Comment on above: Result Comment: Canc elled via OM: Order cancelled - Patient discharged Performed By: #### L 500.2500, L100.0100 #### [facility] [address] [place], [address] Potassium Normal 3.3-5.1 [facility] Comment on above: Result Comment: Canc elled via OM: Order cancelled - Patient discharged Performed By: #### L 500.2500, L100.0100 #### [facility] [address] [place], [address] Basic Metabolic Profile (BMP) Normal 133-145 [facility] Comment on above: Result Comment: Canc elled via OM: Order cancelled - Patient discharged Performed By: #### L 500.2500, L100.0100 #### [facility] [address] [place], [address] CBC W/Diff, Automatedon 08-0 -2024 Absolute Neut Normal 2.0-7.7 [facility] Comment on above: Result Comment: Canc elled via OM: Order cancelled - Patient discharged Performed By: #### L 500.2500, L100.0100 #### [facility] [address] [place], [address] HCT Normal 40-54 [facility] Comment on above: Result Comment: Canc elled via OM: Order cancelled - Patient discharged Performed By: #### L 500.2500, L100.0100 #### [facility] [address] [place], [address] HGB Normal 13.0-16.5 [facility] Comment on above: Result Comment: Canc elled via OM: Order cancelled - Patient discharged Performed By: #### L 500.2500, L100.0100 #### [facility] [address] [place], [address] MCH Normal 27.0-32.0 [facility] Comment on above: Result Comment: Canc elled via OM: Order cancelled - Patient discharged Performed By: #### L 500.2500, L100.0100 #### [facility] [address] [place], [address] MCHC Normal 32-36 [facility] Comment on above: Result Comment: Canc elled via OM: Order cancelled - Patient discharged Performed By: #### L 500.2500, L100.0100 #### [facility] [address] [place], [address] MCV Normal 80-94 [facility] Comment on above: Result Comment: Canc elled via OM: Order cancelled - Patient discharged Performed By: #### L 500.2500, L100.0100 #### [facility] [address] [place], [address] NEUT% Normal 47-70 [facility] Comment on above: Result Comment: Canc elled via OM: Order cancelled - Patient discharged Performed By: #### L 500.2500, L100.0100 #### [facility] [address] [place], [address] PLT Normal 150-450 [facility] Comment on above: Result Comment: Canc elled via OM: Order cancelled - Patient discharged Performed By: #### L 500.2500, L100.0100 #### [facility] [address] [place], [address] RBC Normal 4.6-6.2 [facility] Comment on above: Result Comment: Canc elled via OM: Order cancelled - Patient discharged Performed By: #### L 500.2500, L100.0100 #### [facility] [address] [place], [address] RDW CV Normal 11.6-14.6 [facility] Comment on above: Result Comment: Canc elled via OM: Order cancelled - Patient discharged Performed By: #### L 500.2500, L100.0100 #### [facility] [address] [place], [address] RDW SD Normal 35.1-43.9 [facility] Comment on above: Result Comment: Canc elled via OM: Order cancelled - Patient discharged Performed By: #### L 500.2500, L100.0100 #### [facility] [address] [place], [address] WBC Normal 4.4-11.0 [facility] Comment on above: Result Comment: Canc elled via OM: Order cancelled - Patient discharged Performed By: #### L 500.2500, L100.0100 #### [facility] [address] [place], [address] Basic Metabolic Profile (BMP )on 02-15-2025 BUN Normal 4-19 [facility] Comment on above: Result Comment: Canc elled via OM: Order cancelled - Patient discharged Performed By: #### L 500.2500, L100.0100 #### [facility] [address] [place], [address] BUN/CRE Normal 10-20 [facility] Comment on above: Result Comment: Canc elled via OM: Order cancelled - Patient discharged Performed By: #### L 500.2500, L100.0100 #### [facility] [address] [place], [address] Calcium Normal 7.6-11.0 [facility] Comment on above: Result Comment: Canc elled via OM: Order cancelled - Patient discharged Performed By: #### L 500.2500, L100.0100 #### [facility] [address] [place], [address] CL Normal 98-108 [facility] Comment on above: Result Comment: Canc elled via OM: Order cancelled - Patient discharged Performed By: #### L 500.2500, L100.0100 #### [facility] [address] [place], [address] CO2 Normal 21.0-32.0 [facility] Comment on above: Result Comment: Canc elled via OM: Order cancelled - Patient discharged Performed By: #### L 500.2500, L100.0100 #### [facility] [address] [place], [address] CREAT,SERUM Normal 0.70-1.20 [facility] Comment on above: Result Comment: Canc elled via OM: Order cancelled - Patient discharged Performed By: #### L 500.2500, L100.0100 #### [facility] [address] [place], [address] eGFR Normal >60 [facility] Comment on above: Result Comment: Canc elled via OM: Order cancelled - Patient discharged Performed By: #### L 500.2500, L100.0100 #### [facility] [address] [place], [address] GAP Normal 5-15 [facility] Comment on above: Result Comment: Canc elled via OM: Order cancelled - Patient discharged Performed By: #### L 500.2500, L100.0100 #### [facility] [address] [place], [address] GLU Normal 70-99 [facility] Comment on above: Result Comment: Canc elled via OM: Order cancelled - Patient discharged Performed By: #### L 500.2500, L100.0100 #### [facility] [address] [place], [address] Potassium Normal 3.3-5.1 [facility] Comment on above: Result Comment: Canc elled via OM: Order cancelled - Patient discharged Performed By: #### L 500.2500, L100.0100 #### [facility] [address] [place], [address] Basic Metabolic Profile (BMP) Normal 133-145 [facility] Comment on above: Result Comment: Canc elled via OM: Order cancelled - Patient discharged Performed By: #### L 500.2500, L100.0100 #### [facility] [address] [place], [address] CBC W/Diff, Automatedon 08-0 -2024 Absolute Neut Normal 2.0-7.7 [facility] Comment on above: Result Comment: Canc elled via OM: Order cancelled - Patient discharged Performed By: #### L 500.2500, L100.0100 #### [facility] [address] [place], [address] HCT Normal 40-54 [facility] Comment on above: Result Comment: Canc elled via OM: Order cancelled - Patient discharged Performed By: #### L 500.2500, L100.0100 #### [facility] [address] [place], [address] HGB Normal 13.0-16.5 [facility] Comment on above: Result Comment: Canc elled via OM: Order cancelled - Patient discharged Performed By: #### L 500.2500, L100.0100 #### [facility] [address] [place], [address] MCH Normal 27.0-32.0 [facility] Comment on above: Result Comment: Canc elled via OM: Order cancelled - Patient discharged Performed By: #### L 500.2500, L100.0100 #### [facility] [address] [place], [address] MCHC Normal 32-36 [facility] Comment on above: Result Comment: Canc elled via OM: Order cancelled - Patient discharged Performed By: #### L 500.2500, L100.0100 #### [facility] [address] [place], [address] MCV Normal 80-94 [facility] Comment on above: Result Comment: Canc elled via OM: Order cancelled - Patient discharged Performed By: #### L 500.2500, L100.0100 #### [facility] [address] [place], [address] NEUT% Normal 47-70 [facility] Comment on above: Result Comment: Canc elled via OM: Order cancelled - Patient discharged Performed By: #### L 500.2500, L100.0100 #### [facility] [address] [place], [address] PLT Normal 150-450 [facility] Comment on above: Result Comment: Canc elled via OM: Order cancelled - Patient discharged Performed By: #### L 500.2500, L100.0100 #### [facility] [address] [place], [address] RBC Normal 4.6-6.2 [facility] Comment on above: Result Comment: Canc elled via OM: Order cancelled - Patient discharged Performed By: #### L 500.2500, L100.0100 #### [facility] [address] [place], [address] RDW CV Normal 11.6-14.6 [facility] Comment on above: Result Comment: Canc elled via OM: Order cancelled - Patient discharged Performed By: #### L 500.2500, L100.0100 #### [facility] [address] [place], [address] RDW SD Normal 35.1-43.9 [facility] Comment on above: Result Comment: Canc elled via OM: Order cancelled - Patient discharged Performed By: #### L 500.2500, L100.0100 #### [facility] [address] [place], [address] WBC Normal 4.4-11.0 [facility] Comment on above: Result Comment: Canc elled via OM: Order cancelled - Patient discharged Performed By: #### L 500.2500, L100.0100 #### [facility] [address] [place], [address] Basic Metabolic Profile (BMP )on 02-14-2025 BUN Normal 4-19 [facility] Comment on above: Result Comment: Canc elled via OM: Order cancelled - Patient discharged Performed By: #### L 500.2500, L100.0100 #### [facility] [address] [place], [address] BUN/CRE Normal 10-20 [facility] Comment on above: Result Comment: Canc elled via OM: Order cancelled - Patient discharged Performed By: #### L 500.2500, L100.0100 #### [facility] [address] [place], [address] Calcium Normal 7.6-11.0 [facility] Comment on above: Result Comment: Canc elled via OM: Order cancelled - Patient discharged Performed By: #### L 500.2500, L100.0100 #### [facility] [address] [place], [address] CL Normal 98-108 [facility] Comment on above: Result Comment: Canc elled via OM: Order cancelled - Patient discharged Performed By: #### L 500.2500, L100.0100 #### [facility] [address] [place], [address] CO2 Normal 21.0-32.0 [facility] Comment on above: Result Comment: Canc elled via OM: Order cancelled - Patient discharged Performed By: #### L 500.2500, L100.0100 #### [facility] [address] [place], [address] CREAT,SERUM Normal 0.70-1.20 [facility] Comment on above: Result Comment: Canc elled via OM: Order cancelled - Patient discharged Performed By: #### L 500.2500, L100.0100 #### [facility] [address] [place], [address] eGFR Normal >60 [facility] Comment on above: Result Comment: Canc elled via OM: Order cancelled - Patient discharged Performed By: #### L 500.2500, L100.0100 #### [facility] [address] [place], [address] GAP Normal 5-15 [facility] Comment on above: Result Comment: Canc elled via OM: Order cancelled - Patient discharged Performed By: #### L 500.2500, L100.0100 #### [facility] [address] [place], [address] GLU Normal 70-99 [facility] Comment on above: Result Comment: Canc elled via OM: Order cancelled - Patient discharged Performed By: #### L 500.2500, L100.0100 #### [facility] [address] [place], [address] Potassium Normal 3.3-5.1 [facility] Comment on above: Result Comment: Canc elled via OM: Order cancelled - Patient discharged Performed By: #### L 500.2500, L100.0100 #### [facility] [address] [place], [address] Basic Metabolic Profile (BMP) Normal 133-145 [facility] Comment on above: Result Comment: Canc elled via OM: Order cancelled - Patient discharged Performed By: #### L 500.2500, L100.0100 #### [facility] [address] [place], [address] CBC W/Diff, Automatedon 08-0 -2024 Absolute Neut Normal 2.0-7.7 [facility] Comment on above: Result Comment: Canc elled via OM: Order cancelled - Patient discharged Performed By: #### L 500.2500, L100.0100 #### [facility] [address] [place], [address] HCT Normal 40-54 [facility] Comment on above: Result Comment: Canc elled via OM: Order cancelled - Patient discharged Performed By: #### L 500.2500, L100.0100 #### [facility] [address] [place], [address] HGB Normal 13.0-16.5 [facility] Comment on above: Result Comment: Canc elled via OM: Order cancelled - Patient discharged Performed By: #### L 500.2500, L100.0100 #### [facility] [address] [place], [address] MCH Normal 27.0-32.0 [facility] Comment on above: Result Comment: Canc elled via OM: Order cancelled - Patient discharged Performed By: #### L 500.2500, L100.0100 #### [facility] [address] [place], [address] MCHC Normal 32-36 [facility] Comment on above: Result Comment: Canc elled via OM: Order cancelled - Patient discharged Performed By: #### L 500.2500, L100.0100 #### [facility] [address] [place], [address] MCV Normal 80-94 [facility] Comment on above: Result Comment: Canc elled via OM: Order cancelled - Patient discharged Performed By: #### L 500.2500, L100.0100 #### [facility] [address] [place], [address] NEUT% Normal 47-70 [facility] Comment on above: Result Comment: Canc elled via OM: Order cancelled - Patient discharged Performed By: #### L 500.2500, L100.0100 #### [facility] [address] [place], [address] PLT Normal 150-450 [facility] Comment on above: Result Comment: Canc elled via OM: Order cancelled - Patient discharged Performed By: #### L 500.2500, L100.0100 #### [facility] [address] [place], [address] RBC Normal 4.6-6.2 [facility] Comment on above: Result Comment: Canc elled via OM: Order cancelled - Patient discharged Performed By: #### L 500.2500, L100.0100 #### [facility] [address] [place], [address] RDW CV Normal 11.6-14.6 [facility] Comment on above: Result Comment: Canc elled via OM: Order cancelled - Patient discharged Performed By: #### L 500.2500, L100.0100 #### [facility] [address] [place], [address] RDW SD Normal 35.1-43.9 [facility] Comment on above: Result Comment: Canc elled via OM: Order cancelled - Patient discharged Performed By: #### L 500.2500, L100.0100 #### [facility] [address] [place], [address] WBC Normal 4.4-11.0 [facility] Comment on above: Result Comment: Canc elled via OM: Order cancelled - Patient discharged Performed By: #### L 500.2500, L100.0100 #### [facility] [address] [place], [address] Basic Metabolic Profile (BMP )on 02-13-2025 BUN Normal 4-19 [facility] Comment on above: Result Comment: Canc elled via OM: Order cancelled - Patient discharged Performed By: #### L 500.2500, L100.0100 #### [facility] [address] [place], [address] BUN/CRE Normal 10-20 [facility] Comment on above: Result Comment: Canc elled via OM: Order cancelled - Patient discharged Performed By: #### L 500.2500, L100.0100 #### [facility] [address] [place], [address] Calcium Normal 7.6-11.0 [facility] Comment on above: Result Comment: Canc elled via OM: Order cancelled - Patient discharged Performed By: #### L 500.2500, L100.0100 #### [facility] [address] [place], [address] CL Normal 98-108 [facility] Comment on above: Result Comment: Canc elled via OM: Order cancelled - Patient discharged Performed By: #### L 500.2500, L100.0100 #### [facility] [address] [place], [address] CO2 Normal 21.0-32.0 [facility] Comment on above: Result Comment: Canc elled via OM: Order cancelled - Patient discharged Performed By: #### L 500.2500, L100.0100 #### [facility] [address] [place], [address] CREAT,SERUM Normal 0.70-1.20 [facility] Comment on above: Result Comment: Canc elled via OM: Order cancelled - Patient discharged Performed By: #### L 500.2500, L100.0100 #### [facility] [address] [place], [address] eGFR Normal >60 [facility] Comment on above: Result Comment: Canc elled via OM: Order cancelled - Patient discharged Performed By: #### L 500.2500, L100.0100 #### [facility] [address] [place], [address] GAP Normal 5-15 [facility] Comment on above: Result Comment: Canc elled via OM: Order cancelled - Patient discharged Performed By: #### L 500.2500, L100.0100 #### [facility] [address] [place], [address] GLU Normal 70-99 [facility] Comment on above: Result Comment: Canc elled via OM: Order cancelled - Patient discharged Performed By: #### L 500.2500, L100.0100 #### [facility] [address] [place], [address] Potassium Normal 3.3-5.1 [facility] Comment on above: Result Comment: Canc elled via OM: Order cancelled - Patient discharged Performed By: #### L 500.2500, L100.0100 #### [facility] [address] [place], [address] Basic Metabolic Profile (BMP) Normal 133-145 [facility] Comment on above: Result Comment: Canc elled via OM: Order cancelled - Patient discharged Performed By: #### L 500.2500, L100.0100 #### [facility] [address] [place], [address] CBC W/Diff, Automatedon 08-0 -2024 Absolute Neut Normal 2.0-7.7 [facility] Comment on above: Result Comment: Canc elled via OM: Order cancelled - Patient discharged Performed By: #### L 500.2500, L100.0100 #### [facility] [address] [place], [address] HCT Normal 40-54 [facility] Comment on above: Result Comment: Canc elled via OM: Order cancelled - Patient discharged Performed By: #### L 500.2500, L100.0100 #### [facility] [address] [place], [address] HGB Normal 13.0-16.5 [facility] Comment on above: Result Comment: Canc elled via OM: Order cancelled - Patient discharged Performed By: #### L 500.2500, L100.0100 #### [facility] [address] [place], [address] MCH Normal 27.0-32.0 [facility] Comment on above: Result Comment: Canc elled via OM: Order cancelled - Patient discharged Performed By: #### L 500.2500, L100.0100 #### [facility] [address] [place], [address] MCHC Normal 32-36 [facility] Comment on above: Result Comment: Canc elled via OM: Order cancelled - Patient discharged Performed By: #### L 500.2500, L100.0100 #### [facility] [address] [place], [address] MCV Normal 80-94 [facility] Comment on above: Result Comment: Canc elled via OM: Order cancelled - Patient discharged Performed By: #### L 500.2500, L100.0100 #### [facility] [address] [place], [address] NEUT% Normal 47-70 [facility] Comment on above: Result Comment: Canc elled via OM: Order cancelled - Patient discharged Performed By: #### L 500.2500, L100.0100 #### [facility] [address] [place], [address] PLT Normal 150-450 [facility] Comment on above: Result Comment: Canc elled via OM: Order cancelled - Patient discharged Performed By: #### L 500.2500, L100.0100 #### [facility] [address] [place], [address] RBC Normal 4.6-6.2 [facility] Comment on above: Result Comment: Canc elled via OM: Order cancelled - Patient discharged Performed By: #### L 500.2500, L100.0100 #### [facility] [address] [place], [address] RDW CV Normal 11.6-14.6 [facility] Comment on above: Result Comment: Canc elled via OM: Order cancelled - Patient discharged Performed By: #### L 500.2500, L100.0100 #### [facility] [address] [place], [address] RDW SD Normal 35.1-43.9 [facility] Comment on above: Result Comment: Canc elled via OM: Order cancelled - Patient discharged Performed By: #### L 500.2500, L100.0100 #### [facility] [address] [place], [address] WBC Normal 4.4-11.0 [facility] Comment on above: Result Comment: Canc elled via OM: Order cancelled - Patient discharged Performed By: #### L 500.2500, L100.0100 #### [facility] [address] [place], [address] Basic Metabolic Profile (BMP )on 02-12-2025 BUN Normal 4-19 [facility] Comment on above: Result Comment: Canc elled via OM: Order cancelled - Patient discharged Performed By: #### L 500.2500, L100.0100 #### [facility] [address] [place], [address] BUN/CRE Normal 10-20 [facility] Comment on above: Result Comment: Canc elled via OM: Order cancelled - Patient discharged Performed By: #### L 500.2500, L100.0100 #### [facility] [address] [place], [address] Calcium Normal 7.6-11.0 [facility] Comment on above: Result Comment: Canc elled via OM: Order cancelled - Patient discharged Performed By: #### L 500.2500, L100.0100 #### [facility] [address] [place], [address] CL Normal 98-108 [facility] Comment on above: Result Comment: Canc elled via OM: Order cancelled - Patient discharged Performed By: #### L 500.2500, L100.0100 #### [facility] [address] [place], [address] CO2 Normal 21.0-32.0 [facility] Comment on above: Result Comment: Canc elled via OM: Order cancelled - Patient discharged Performed By: #### L 500.2500, L100.0100 #### [facility] [address] [place], [address] CREAT,SERUM Normal 0.70-1.20 [facility] Comment on above: Result Comment: Canc elled via OM: Order cancelled - Patient discharged Performed By: #### L 500.2500, L100.0100 #### [facility] [address] [place], [address] eGFR Normal >60 [facility] Comment on above: Result Comment: Canc elled via OM: Order cancelled - Patient discharged Performed By: #### L 500.2500, L100.0100 #### [facility] [address] [place], [address] GAP Normal 5-15 [facility] Comment on above: Result Comment: Canc elled via OM: Order cancelled - Patient discharged Performed By: #### L 500.2500, L100.0100 #### [facility] [address] [place], [address] GLU Normal 70-99 [facility] Comment on above: Result Comment: Canc elled via OM: Order cancelled - Patient discharged Performed By: #### L 500.2500, L100.0100 #### [facility] [address] [place], [address] Potassium Normal 3.3-5.1 [facility] Comment on above: Result Comment: Canc elled via OM: Order cancelled - Patient discharged Performed By: #### L 500.2500, L100.0100 #### [facility] [address] [place], [address] Basic Metabolic Profile (BMP) Normal 133-145 [facility] Comment on above: Result Comment: Canc elled via OM: Order cancelled - Patient discharged Performed By: #### L 500.2500, L100.0100 #### [facility] [address] [place], [address] CBC W/Diff, Automatedon 08-0 2-2024 Absolute Neut Normal 2.0-7.7 [facility] Comment on above: Result Comment: Canc elled via OM: Order cancelled - Patient discharged Performed By: #### L 500.2500, L100.0100 #### [facility] [address] [place], [address] HCT Normal 40-54 [facility] Comment on above: Result Comment: Canc elled via OM: Order cancelled - Patient discharged Performed By: #### L 500.2500, L100.0100 #### [facility] [address] [place], [address] HGB Normal 13.0-16.5 [facility] Comment on above: Result Comment: Canc elled via OM: Order cancelled - Patient discharged Performed By: #### L 500.2500, L100.0100 #### [facility] [address] [place], [address] MCH Normal 27.0-32.0 [facility] Comment on above: Result Comment: Canc elled via OM: Order cancelled - Patient discharged Performed By: #### L 500.2500, L100.0100 #### [facility] [address] [place], [address] MCHC Normal 32-36 [facility] Comment on above: Result Comment: Canc elled via OM: Order cancelled - Patient discharged Performed By: #### L 500.2500, L100.0100 #### [facility] [address] [place], [address] MCV Normal 80-94 [facility] Comment on above: Result Comment: Canc elled via OM: Order cancelled - Patient discharged Performed By: #### L 500.2500, L100.0100 #### [facility] [address] [place], [address] NEUT% Normal 47-70 [facility] Comment on above: Result Comment: Canc elled via OM: Order cancelled - Patient discharged Performed By: #### L 500.2500, L100.0100 #### [facility] [address] [place], [address] PLT Normal 150-450 [facility] Comment on above: Result Comment: Canc elled via OM: Order cancelled - Patient discharged Performed By: #### L 500.2500, L100.0100 #### [facility] [address] [place], [address] RBC Normal 4.6-6.2 [facility] Comment on above: Result Comment: Canc elled via OM: Order cancelled - Patient discharged Performed By: #### L 500.2500, L100.0100 #### [facility] [address] [place], [address] RDW CV Normal 11.6-14.6 [facility] Comment on above: Result Comment: Canc elled via OM: Order cancelled - Patient discharged Performed By: #### L 500.2500, L100.0100 #### [facility] [address] [place], [address] RDW SD Normal 35.1-43.9 [facility] Comment on above: Result Comment: Canc elled via OM: Order cancelled - Patient discharged Performed By: #### L 500.2500, L100.0100 #### [facility] [address] [place], [address] WBC Normal 4.4-11.0 [facility] Comment on above: Result Comment: Canc elled via OM: Order cancelled - Patient discharged Performed By: #### L 500.2500, L100.0100 #### [facility] [address] [place], [address] Basic Metabolic Profile (BMP )on 02-11-2025 BUN Normal 4-19 [facility] Comment on above: Result Comment: Canc elled via OM: Order cancelled - Patient discharged Performed By: #### L 500.2500, L100.0100 #### [facility] [address] [place], [address] BUN/CRE Normal 10-20 [facility] Comment on above: Result Comment: Canc elled via OM: Order cancelled - Patient discharged Performed By: #### L 500.2500, L100.0100 #### [facility] [address] [place], [address] Calcium Normal 7.6-11.0 [facility] Comment on above: Result Comment: Canc elled via OM: Order cancelled - Patient discharged Performed By: #### L 500.2500, L100.0100 #### [facility] [address] [place], [address] CL Normal 98-108 [facility] Comment on above: Result Comment: Canc elled via OM: Order cancelled - Patient discharged Performed By: #### L 500.2500, L100.0100 #### [facility] [address] [place], [address] CO2 Normal 21.0-32.0 [facility] Comment on above: Result Comment: Canc elled via OM: Order cancelled - Patient discharged Performed By: #### L 500.2500, L100.0100 #### [facility] [address] [place], [address] CREAT,SERUM Normal 0.70-1.20 [facility] Comment on above: Result Comment: Canc elled via OM: Order cancelled - Patient discharged Performed By: #### L 500.2500, L100.0100 #### [facility] [address] [place], [address] eGFR Normal >60 [facility] Comment on above: Result Comment: Canc elled via OM: Order cancelled - Patient discharged Performed By: #### L 500.2500, L100.0100 #### [facility] [address] [place], [address] GAP Normal 5-15 [facility] Comment on above: Result Comment: Canc elled via OM: Order cancelled - Patient discharged Performed By: #### L 500.2500, L100.0100 #### [facility] [address] [place], [address] GLU Normal 70-99 [facility] Comment on above: Result Comment: Canc elled via OM: Order cancelled - Patient discharged Performed By: #### L 500.2500, L100.0100 #### [facility] [address] [place], [address] Potassium Normal 3.3-5.1 [facility] Comment on above: Result Comment: Canc elled via OM: Order cancelled - Patient discharged Performed By: #### L 500.2500, L100.0100 #### [facility] [address] [place], [address] Basic Metabolic Profile (BMP) Normal 133-145 [facility] Comment on above: Result Comment: Canc elled via OM: Order cancelled - Patient discharged Performed By: #### L 500.2500, L100.0100 #### [facility] [address] [place], [address] CBC W/Diff, Automatedon 08-0 Absolute Neut Normal 2.0-7.7 [facility] Comment on above: Result Comment: Canc elled via OM: Order cancelled - Patient discharged Performed By: #### L 500.2500, L100.0100 #### [facility] [address] [place], [address] HCT Normal 40-54 [facility] Comment on above: Result Comment: Canc elled via OM: Order cancelled - Patient discharged Performed By: #### L 500.2500, L100.0100 #### [facility] [address] [place], [address] HGB Normal 13.0-16.5 [facility] Comment on above: Result Comment: Canc elled via OM: Order cancelled - Patient discharged Performed By: #### L 500.2500, L100.0100 #### [facility] [address] [place], [address] MCH Normal 27.0-32.0 [facility] Comment on above: Result Comment: Canc elled via OM: Order cancelled - Patient discharged Performed By: #### L 500.2500, L100.0100 #### [facility] [address] [place], [address] MCHC Normal 32-36 [facility] Comment on above: Result Comment: Canc elled via OM: Order cancelled - Patient discharged Performed By: #### L 500.2500, L100.0100 #### [facility] [address] [place], [address] MCV Normal 80-94 [facility] Comment on above: Result Comment: Canc elled via OM: Order cancelled - Patient discharged Performed By: #### L 500.2500, L100.0100 #### [facility] [address] [place], [address] NEUT% Normal 47-70 [facility] Comment on above: Result Comment: Canc elled via OM: Order cancelled - Patient discharged Performed By: #### L 500.2500, L100.0100 #### [facility] [address] [place], [address] PLT Normal 150-450 [facility] Comment on above: Result Comment: Canc elled via OM: Order cancelled - Patient discharged Performed By: #### L 500.2500, L100.0100 #### [facility] [address] [place], [address] RBC Normal 4.6-6.2 [facility] Comment on above: Result Comment: Canc elled via OM: Order cancelled - Patient discharged Performed By: #### L 500.2500, L100.0100 #### [facility] [address] [place], [address] RDW CV Normal 11.6-14.6 [facility] Comment on above: Result Comment: Canc elled via OM: Order cancelled - Patient discharged Performed By: #### L 500.2500, L100.0100 #### [facility] [address] [place], [address] RDW SD Normal 35.1-43.9 [facility] Comment on above: Result Comment: Canc elled via OM: Order cancelled - Patient discharged Performed By: #### L 500.2500, L100.0100 #### [facility] [address] [place], [address] WBC Normal 4.4-11.0 [facility] Comment on above: Result Comment: Canc elled via OM: Order cancelled - Patient discharged Performed By: #### L 500.2500, L100.0100 #### [facility] [address] [place], [address] Absolute lymphocyte countOrd ered By: Isadora Arndt on 02-10-2025 Lymphocytes Auto (Unsp spec) [#/Vol] 0.89 10*3/uL 0.83-4.51 [facility] Absolute neutrophil countOrd ered By: Isadora Arndt on 02-10-2025 Neutrophils (Bld) [#/Vol] 2.8 10*3/uL 2.0-7.7 [facility] Anion gap in Serum or Plasma Ordered By: Isadora Arndt on 02-10-2025 Anion gap [Moles/Vol] 11 mmol/L 5-15 [facility] Automated lymphocyte count a s percentage of total leukocytesOrdered By: Isadora Arndt on 02-10-2025 Lymphocytes/100 WBC Auto (Unsp spec) 20.9 % 19-41 [facility] BUN/creatinine ratioOrdered By: Isadora Arndt on 02-10-2025 Urea nitrogen/Creatinine [Mass ratio] 26.4 mg/mg High 10-20 [facility] Basic Metabolic Profile (BMP )on 02-10-2025 BUN/CRE 26.4 RATIO High 10- [facility] Comment on above: Performed By: #### L 500.2500, L100.0100 #### [facility] [address] [place], [address] Calcium [Mass/Vol] 8.6 mg/dL Normal 7.6-11.0 [facility] Comment on above: Performed By: #### L 500.2500, L100.0100 #### [facility] [address] [place], [address] Chloride [Moles/Vol] 106 mmol/L Normal 98-108 [facility] Comment on above: Performed By: #### L 500.2500, L100.0100 #### [facility] [address] [place], [address] CO2 [Moles/Vol] 21.5 mmol/L Normal 21.0-32.0 [facility] Comment on above: Performed By: #### L 500.2500, L100.0100 #### [facility] [address] [place], [address] Creatinine [Mass/Vol] 1.18 mg/dL Normal 0.70-1.20 [facility] Comment on above: Performed By: #### L 500.2500, L100.0100 #### [facility] [address] [place], [address] ECRCL 38.71 ml/min Low 50-250 [facility] Comment on above: Performed By: #### L 500.2500, L100.0100 #### [facility] [address] [place], [address] GAP 11 Normal 5-15 [facility] Comment on above: Performed By: #### L 500.2500, L100.0100 #### [facility] [address] [place], [address] GFR/1.73 sq M.predicted among non-blacks MDRD (S/P/Bld) [Vol rate/Area] 62 mL/min/{1.73_m2} Normal >60 [facility] Comment on above: Result Comment: mL/m in/1.73m2 CKD-EPI Creatinine Equation (2020) Performed By: #### L 500.2500, L100.0100 #### [facility] [address] [place], [address] Glucose [Mass/Vol] 99 mg/dL Normal 70-99 [facility] Comment on above: Performed By: #### L 500.2500, L100.0100 #### [facility] [address] [place], [address] Potassium [Moles/Vol] 3.5 mmol/L Normal 3.3-5.1 [facility] Comment on above: Performed By: #### L 500.2500, L100.0100 #### [facility] [address] [place], [address] Sodium [Moles/Vol] 138 mmol/L Normal 133-145 [facility] Comment on above: Performed By: #### L 500.2500, L100.0100 #### [facility] [address] [place], [address] Urea nitrogen [Mass/Vol] 31 mg/dL High 4-19 [facility] Comment on above: Performed By: #### L 500.2500, L100.0100 #### [facility] [address] [place], [address] Basophil percentageOrdered B y: Isadora Arndt on 02-10-2025 Basophils/100 WBC (Bld) 0.5 % 0-1 [facility] CBC W/Diff, Automatedon 01-13 Absolute Lymph 0.89 X10 3/uL Normal 0.83-4.51 [facility] Comment on above: Performed By: #### L 500.2500, L100.0100 #### [facility] [address] [place], [address] Absolute Neut 2.8 X10 3/uL Normal 2.0-7.7 [facility] Comment on above: Performed By: #### L 500.2500, L100.0100 #### [facility] [address] [place], [address] Basophils/100 WBC (Bld) 0.5 % Normal 0-1 [facility] Comment on above: Performed By: #### L 500.2500, L100.0100 #### [facility] [address] [place], [address] Eosinophils/100 WBC (Bld) 0.9 % Normal 0-5 [facility] Comment on above: Performed By: #### L 500.2500, L100.0100 #### [facility] [address] [place], [address] Erythrocyte distribution width (RBC) [Ratio] 12.6 % Normal 11.6-14.6 [facility] Comment on above: Performed By: #### L 500.2500, L100.0100 #### [facility] [address] [place], [address] Hematocrit (Bld) [Volume fraction] 29.3 % Low 40-54 [facility] Comment on above: Performed By: #### L 500.2500, L100.0100 #### [facility] [address] [place], [address] Hemoglobin (Bld) [Mass/Vol] 10.2 g/dL Low 13.0-16.5 [facility] Comment on above: Performed By: #### L 500.2500, L100.0100 #### [facility] [address] [place], [address] IG% 0.700 Normal 0.0-0.9 [facility] Comment on above: Result Comment: IG% - Immature Granulocytes (promyelocytes, myelocytes and metamyelocytes) > 1% indicates that a LEFT SHIFT is Present. Performed By: #### L 500.2500, L100.0100 #### [facility] [address] [place], [address] Lymphocytes/100 WBC (Bld) 20.9 % Normal 19-41 [facility] Comment on above: Performed By: #### L 500.2500, L100.0100 #### [facility] [address] [place], [address] MCH (RBC) [Entitic mass] 32.1 pg High 27.0-32.0 [facility] Comment on above: Performed By: #### L 500.2500, L100.0100 #### [facility] [address] [place], [address] MCHC (RBC) [Mass/Vol] 34.8 g/dL Normal 32-36 [facility] Comment on above: Performed By: #### L 500.2500, L100.0100 #### [facility] [address] [place], [address] MCV (RBC) [Entitic vol] 92.1 fL Normal 80-94 [facility] Comment on above: Performed By: #### L 500.2500, L100.0100 #### [facility] [address] [place], [address] Monocytes/100 WBC (Bld) 10.1 % High 0-10 [facility] Comment on above: Performed By: #### L 500.2500, L100.0100 #### [facility] [address] [place], [address] Neutrophils/100 WBC (Bld) 66.9 % Normal 47-70 [facility] Comment on above: Performed By: #### L 500.2500, L100.0100 #### [facility] [address] [place], [address] Nucleated RBC (Bld) [#/Vol] 0 10*3/uL Normal 0-5 [facility] Comment on above: Performed By: #### L 500.2500, L100.0100 #### [facility] [address] [place], [address] Platelet mean volume (Bld) [Entitic vol] 11.6 fL Normal 6.2-12.0 [facility] Comment on above: Performed By: #### L 500.2500, L100.0100 #### [facility] [address] [place], [address] Platelets (Bld) [#/Vol] 107 10*3/uL Low 150-450 [facility] Comment on above: Performed By: #### L 500.2500, L100.0100 #### [facility] [address] [place], [address] RBC (Bld) [#/Vol] 3.18 10*6/uL Low 4.6-6.2 [facility] Comment on above: Performed By: #### L 500.2500, L100.0100 #### [facility] [address] [place], [address] RDW SD 42.1 fl Normal 35.1-43.9 [facility] Comment on above: Performed By: #### L 500.2500, L100.0100 #### [facility] [address] [place], [address] WBC (Bld) [#/Vol] 4.3 10*3/uL Low 4.4-11.0 [facility] Comment on above: Performed By: #### L 500.2500, L100.0100 #### [facility] [address] [place], [address] Carbon dioxide, total [Moles /volume] in Central venous bloodOrdered By: Isadora Arndt on 02-10-2025 CO2 [Moles/Vol] 21.5 mmol/L 21.0-32.0 [facility] Chloride assayOrdered By: Na na Hair on 02-10-2025 Chloride [Moles/Vol] 106 mmol/L 98-108 [facility] Eosinophil percentageOrdered By: Isadora Arndt on 02-10-2025 Eosinophils/100 WBC (Bld) 0.9 % 0-5 [facility] Erythrocyte distribution wid th ratioOrdered By: [facility] Erythrocyte distribution width (RBC) [Ratio] 12.6 % 11.6-14.6 [facility] Erythrocyte distribution wid th standard deviationOrdered By: Isadora [facility] 02-10-2025 Erythrocyte distribution width (RBC) [Ratio] 42.1 fl 35.1-43.9 [facility] Glomerular filtration rate ( GFR) estimation/1.73 sq m using serum, plasma, or whole bOrdered By: Isadora Arndt on 02-10-2025 GFR/1.73 sq M.predicted among non-blacks MDRD (S/P/Bld) [Vol rate/Area] 62 mL/min/{1.73_m2} >60 [facility] Comment on above: mL/min/1.73m2 CKD-EP I Creatinine Equation (2020) Hematocrit Auto (Bld) [Volum e fraction]Ordered By: Isadora Arndt on 02-10-2025 Hematocrit (Bld) [Volume fraction] 29.3 % Low 40-54 [facility] Hemoglobin measurementOrdere d By: Isadora Arndt on 02-10-2025 Hemoglobin (Bld) [Mass/Vol] 10.2 g/dL Low 13.0-16.5 [facility] Immature granulocytes/100 WB C Auto (Bld)Ordered By: Isadora Arndt on 02-10-2025 Immature granulocytes/100 WBC (Bld) 0.700 % 0.0-0.9 [facility] Comment on above: IG% - Immature Granu locytes (promyelocytes, myelocytes and metamyelocytes) > 1% indicates that a LEFT SHIFT is Present. MCV (mean corpuscular volume ) determinationOrdered By: Isadora Arndt on 02-10-2025 MCV (RBC) [Entitic vol] 92.1 fL 80-94 [facility] Mean corpuscular hemoglobin (MCH) determinationOrdered By: Isadora Arndt on 02-10-2025 MCH (RBC) [Entitic mass] 32.1 pg High 27.0-32.0 [facility] Mean corpuscular hemoglobin concentration (MCHC) determinationOrdered By: Isadora Arndt on 02-10-2025 MCHC (RBC) [Mass/Vol] 34.8 g/dL 32-36 [facility] Mean platelet volume determi nationOrdered By: Isadora Arndt on 02-10-2025 Platelet mean volume (Bld) [Entitic vol] 11.6 fL 6.2-12.0 [facility] Monocyte percentageOrdered B y: Isadora Arndt on 02-10-2025 Monocytes/100 WBC (Bld) 10.1 % High 0-10 [facility] Neutrophil percentageOrdered By: Isadora Arndt on 02-10-2025 Neutrophils/100 WBC (Bld) 66.9 % 47-70 [facility] Nucleated red blood cell per centageOrdered By: Isadora Arndt 02-10-2025 Nucleated RBC/100 WBC (Bld) [Ratio] 0 % 0-5 [facility] Platelet countOrdered By: Na greta Arndt on 02-10-2025 Platelets (Bld) [#/Vol] 107 10*3/uL Low 150-450 [facility] Potassium measurement (mass/ volume)Ordered By: Isadora Arndt on 02-10-2025 Potassium (Unsp spec) [Mass/Vol] 3.5 mmol/L 3.3-5.1 [facility] RBC Auto (Bld) [#/Vol]Ordere d By: Isadora Arndt on 02-10-2025 RBC (Bld) [#/Vol] 3.18 10*6/uL Low 4.6-6.2 [facility] Serum creatinine measurement (mass/volume)Ordered By: Isadorajm Arndt on 02-10-2025 Creatinine [Mass/Vol] 1.18 mg/dL 0.70-1.20 [facility] Serum glucose measurement (m ass/volume)Ordered By: Isadora Arndt on 02-10-2025 Glucose [Mass/Vol] 99 mg/dL 70-99 [facility] Serum or plasma calcium diane urement (mass/volume)Ordered By: Isadorajm Arndt on 02-10-2025 Calcium [Mass/Vol] 8.6 mg/dL 7.6-11.0 [facility] Serum or plasma urea nitroge n measurement (mass/volume)Ordered By: Isadorajm Arndt on 02-10-2025 Urea nitrogen [Mass/Vol] 31 mg/dL High 4-19 [facility] Sodium levelOrdered By: Isadora Arndt on 02-10-2025 Sodium [Moles/Vol] 138 mmol/L 133-145 [facility] White blood cell (WBC) count Ordered By: Isadora Arndt on 02-10-2025 WBC (Bld) [#/Vol] 4.3 10*3/uL Low 4.4-11.0 [facility] Basic Metabolic Profile (BMP )on 02-09-2025 BUN/CRE 28.7 RATIO High 10-20 [facility] Comment on above: Performed By: #### L 500.2500, L100.0500 #### [facility] [address] [place], [address] Calcium [Mass/Vol] 8.4 mg/dL Normal 7.6-11.0 [facility] Comment on above: Performed By: #### L 500.2500, L100.0500 #### [facility] [address] [place], [address] Chloride [Moles/Vol] 107 mmol/L Normal 98-108 [facility] Comment on above: Performed By: #### L 500.2500, L100.0500 #### [facility] [address] [place], [address] CO2 [Moles/Vol] 20.2 mmol/L Low 21.0-32.0 [facility] Comment on above: Performed By: #### L 500.2500, L100.0500 #### [facility] [address] [place], [address] Creatinine [Mass/Vol] 1.08 mg/dL Normal 0.70-1.20 [facility] Comment on above: Performed By: #### L 500.2500, L100.0500 #### [facility] [address] [place], [address] ECRCL 42.29 ml/min Low 50-250 [facility] Comment on above: Performed By: #### L 500.2500, L100.0500 #### [facility] [address] [place], [address] GAP 12 Normal 5-15 [facility] Comment on above: Performed By: #### L 500.2500, L100.0500 #### [facility] [address] [place], [address] GFR/1.73 sq M.predicted among non-blacks MDRD (S/P/Bld) [Vol rate/Area] 69 mL/min/{1.73_m2} Normal >60 [facility] Comment on above: Result Comment: mL/m in/1.73m2 CKD-EPI Creatinine Equation (2020) Performed By: #### L 500.2500, L100.0500 #### [facility] [address] [place], [address] Glucose [Mass/Vol] 88 mg/dL Normal 70-99 [facility] Comment on above: Performed By: #### L 500.2500, L100.0500 #### [facility] [address] [place], [address] Potassium [Moles/Vol] 3.5 mmol/L Normal 3.3-5.1 [facility] Comment on above: Performed By: #### L 500.2500, L100.0500 #### [facility] [address] [place], [address] Sodium [Moles/Vol] 139 mmol/L Normal 133-145 [facility] Comment on above: Performed By: #### L 500.2500, L100.0500 #### [facility] [address] [place], [address] Urea nitrogen [Mass/Vol] 31 mg/dL High 4-19 [facility] Comment on above: Performed By: #### L 500.2500, L100.0500 #### [facility] [address] [place], [address] CBC-Complete Blood Cnt No ffon 02-09-2025 Erythrocyte distribution width (RBC) [Ratio] 12.6 % Normal 11.6-14.6 [facility] Comment on above: Performed By: #### L 500.2500, L100.0500 #### [facility] [address] [place], [address] Hematocrit (Bld) [Volume fraction] 30.8 % Low 40-54 [facility] Comment on above: Performed By: #### L 500.2500, L100.0500 #### [facility] [address] [place], [address] Hemoglobin (Bld) [Mass/Vol] 10.6 g/dL Low 13.0-16.5 [facility] Comment on above: Performed By: #### L 500.2500, L100.0500 #### [facility] [address] [place], [address] MCH (RBC) [Entitic mass] 31.8 pg Normal 27.0-32.0 [facility] Comment on above: Performed By: #### L 500.2500, L100.0500 #### [facility] [address] [place], [address] MCHC (RBC) [Mass/Vol] 34.4 g/dL Normal 32-36 [facility] Comment on above: Performed By: #### L 500.2500, L100.0500 #### [facility] [address] [place], [address] MCV (RBC) [Entitic vol] 92.5 fL Normal 80-94 [facility] Comment on above: Performed By: #### L 500.2500, L100.0500 #### [facility] [address] [place], [address] Platelet mean volume (Bld) [Entitic vol] 11.4 fL Normal 6.2-12.0 [facility] Comment on above: Performed By: #### L 500.2500, L100.0500 #### [facility] [address] [place], [address] Platelets (Bld) [#/Vol] 102 10*3/uL Low 150-450 [facility] Comment on above: Performed By: #### L 500.2500, L100.0500 #### [facility] [address] [place], [address] RBC (Bld) [#/Vol] 3.33 10*6/uL Low 4.6-6.2 [facility] Comment on above: Performed By: #### L 500.2500, L100.0500 #### [facility] [address] [place], [address] RDW SD 41.6 fl Normal 35.1-43.9 [facility] Comment on above: Performed By: #### L 500.2500, L100.0500 #### [facility] [address] [place], [address] WBC (Bld) [#/Vol] 3.8 10*3/uL Low 4.4-11.0 [facility] Comment on above: Performed By: #### L 500.2500, L100.0500 #### [facility] [address] [place], [address] Electrocardiogram reportOrde red By: Wolfgang Conde on 02-09-2025 EKG study [facility] Cardiovascular Services [address] [place] [address] 12 Lead EKG 02/08/25 1245 MR#: [id number] Acct: [id number] Name: SOPHIA CORTES Rep #:[id number] : 1940 84 From: Wolfgang Conde MD Attending Dr: Dr. Isadora Arndt MD Status: ADM MARCELA Ordering Dr: Michael Allen DO Date: Location: [facility] Sex: M C Admitted: 02/08/25 Test Reason : GENERAL Blood Pressure : */* mmHG Vent. Rate : 48 BPM Atrial Rate : 48 BPM P-R Int : 170 ms QRS Dur : 104 ms QT Int : 512 ms P-R-T Axes : 57 -31 190 degrees QTcB Int : 457 ms Sinus bradycardia Left axis deviation Cannot rule out Anteroseptal infarct T wave abnormality, consider lateral ischemia Abnormal ECG Confirmed by WOLFGANG CONDE MD ([id number]), clinical editor ZANA ROOT ([id number]) on 58:35:44 AM Referred By: Confirmed By: WOLFGANG CONDE MD 02/09/25 0835 Date _ Wolfgang Conde MD CC: Dr. Isadora Arndt MD; Dr. Michael Allen DO; No Primary Care Physician ~ Signed [facility] Work Phone: Testicular with Arterial Diego won 02-09-2025 Testicular with Arterial Flow [facility] Imaging Services [address] [place] [address] Testicular with Arterial Flow MR#: [id number] Acct: [id number] Name: SOPHIA CORTES Rep #: [id number] : 1940 M 84 From: Aleksandr lazo MD PCP: Care Physician,No Primary Status: ADM MARCELA Study: Testicular with Arterial Flow Date of Exam: Exam# [id number] Ordering Dr: Isadora Arndt MD PROCEDURE: TESTICULAR WITH ARTERIAL FLOW 02/09/2025 REASON FOR EXAM: ENLARGED SCROTUM TECHNIQUE: TESTICULAR WITH ARTERIAL FLOW COMPARISON: None FINDINGS: RIGHT testicle: 3.3 cm x 2.8 cm x 1.6 cm Right epididymis: 1.6 cm x 1.2 cm x 0.5 cm. LEFT testicle: 4.1 cm x 2.9 cm x 2.5 cm Left epididymis: 1.3 cm x 1.3 cm x 0.8 cm. Other findings: Is a large right hydrocele. This is loculated. The overlying scrotal skin is thickened measuring 7 mm. Small left hydrocele. US/Testicular with Arterial Flow IMPRESSION: Large right hydrocele with scrotal skin thickening as described. Small left hydrocele. Reading Location: [facility] CC: Dr. Isadora Arndt MD; No Primary Care Physician Family Readiness Support Assistant: Signed Normal [facility] 12 Lead EKGon 02-08-2025 12 Lead EKG [facility] Cardiovascular Services [address] [place] [address] 12 Lead EKG 02/08/25 1245 MR#: [id number] Acct: [id number] Name: SOPHIA CORTES Rep #: [id number] : 1940 84 From: Wolfgang Conde MD Attending Dr: Dr. Isadora Arndt MD Status: AD M MARCELA Ordering Dr: Michael Allen DO Date: 02/08/25 Location: [facility] Sex: M C Admitted: 02/08/25 Test Reason : GENERAL Blood Pressure : */* mmHG Vent. Rate : 48 BPM Atrial Rate : 48 BPM P-R Int : 170 ms QRS Dur : 104 ms QT Int : 512 ms P-R-T Axes : 57 -31 190 degrees QTcB Int : 457 ms Sinus bradycardia Left axis deviation Cannot rule out Anteroseptal infarct T wave abnormality, consider lateral ischemia Abnormal ECG Confirmed by ELTON REZA, WOLFGANG ([id number]), clinical editor ZANA ROOT ([id number]) on 02/09/2025 8:35:44 AM Referred By: Confirmed By: WOLFGANG CONDE MD 02/09/25 0835 Date Wolfgang Conde MD CC: Dr. Isadora Arndt MD; Dr. Michael Allen DO; No Primary Care Physician Signed Normal [facility] Absolute lymphocyte countOrd ered By: Michael Allen on 02-08-2025 Lymphocytes Auto (Unsp spec) [#/Vol] 0.74 10*3/uL Low 0.83-4.51 [facility] Absolute neutrophil countOrd ered By: Michael Allen on 02-08-2025 Neutrophils (Bld) [#/Vol] 4.0 10*3/uL 2.0-7.7 [facility] Anion gap in Serum or Plasma Ordered By: Michael Allen on 02-08-2025 Anion gap [Moles/Vol] 14 mmol/L 5-15 [facility] Automated lymphocyte count a s percentage of total leukocytesOrdered By: Michael Allen on 02-08-2025 Lymphocytes/100 WBC Auto (Unsp spec) 13.6 % Low 19-41 [facility] BUN/creatinine ratioOrdered By: Michael Allen on 02-08-2025 Urea nitrogen/Creatinine [Mass ratio] 23.5 mg/mg High 10-20 [facility] Basophil percentageOrdered B y: Michael Allen on 02-08-2025 Basophils/100 WBC (Bld) 0.2 % 0-1 [facility] Bilirubin Test strip Ql (U)O rdered By: Michael Allen on 02-08-2025 Bilirubin Ql (U) Negative Negative [facility] Bilirubin, totalOrdered By: Michael Allen on 02-08-2025 Bilirubin [Mass/Vol] 1.16 mg/dL 0.00-1.30 [facility] Brain/Head without Contrasto n 02-08-2025 Brain/Head without Contrast [facility] Imaging Services [address] [place] [address] Brain/Head without Contrast MR#: [id number] Acct: [id number] Name: SOPHIA CORTES Rep #: [id number] : 1940 M 84 From: Emilio Sullivan MD PCP: Care Physician,No Primary Status: [facility] Study: Brain/Head without Contrast Date of Exam: 01/12 04/07 Exam# [id number] Ordering Dr: Michael Allen DO EXAM: NONCONTRAST CT SCAN OF THE HEAD CLINICAL HISTORY: Mental status change, weakness COMPARISON: January 23, 2025 TECHNIQUE: Serial axial series through the head were obtained without contrast. 2-D coronal and sagittal reformats were then obtained. FINDINGS: Brain: There is no acute large territorial infarct, intracranial hemorrhage, midline shift or mass effect. There are atherosclerotic vascular calcifications involving the bilateral carotid siphons. The sella and pineal gland regions appear unremarkable. There is no evidence of cerebellar tonsillar herniation. Ventricles: There is no acute hydrocephalus. Basilar cisterns are patent. Paranasal sinuses: Well-aerated Mastoid air cells: Well-aerated. Calvarium: The bony calvarium is intact. Orbits: The bilateral globes are symmetric, without retrobulbar compressive mass lesion or hemorrhage. CT/Brain/Head without Contrast IMPRESSION: No acute intracranial pathology. Reading Location: [facility] CC: Dr. Michael Allen DO; No Primary Care Physician Family Readiness Support Assistant: Signed Normal [facility] CBC W/Diff, Automatedon 01-12 Absolute Lymph 0.74 X10 3/uL Low 0.83-4.51 [facility] Comment on above: Performed By: #### L 500.2500, L100.0100 #### [facility] [address] [place], [address] Absolute Neut 4.0 X10 3/uL Normal 2.0-7.7 [facility] Comment on above: Performed By: #### L 500.2500, L100.0100 #### [facility] [address] [place], [address] Basophils/100 WBC (Bld) 0.2 % Normal 0-1 [facility] Comment on above: Performed By: #### L 500.2500, L100.0100 #### [facility] [address] [place], [address] Eosinophils/100 WBC (Bld) 0.7 % Normal 0-5 [facility] Comment on above: Performed By: #### L 500.2500, L100.0100 #### [facility] [address] [place], [address] Erythrocyte distribution width (RBC) [Ratio] 12.8 % Normal 11.6-14.6 [facility] Comment on above: Performed By: #### L 500.2500, L100.0100 #### [facility] [address] [place], [address] Hematocrit (Bld) [Volume fraction] 35.5 % Low 40-54 [facility] Comment on above: Performed By: #### L 500.2500, L100.0100 #### [facility] [address] [place], [address] Hemoglobin (Bld) [Mass/Vol] 12.1 g/dL Low 13.0-16.5 [facility] Comment on above: Performed By: #### L 500.2500, L100.0100 #### [facility] [address] [place], [address] IG% 0.400 Normal 0.0-0.9 [facility] Comment on above: Result Comment: IG% - Immature Granulocytes (promyelocytes, myelocytes and metamyelocytes) > 1% indicates that a LEFT SHIFT is Present. Performed By: #### L 500.2500, L100.0100 #### [facility] [address] [place], [address] Lymphocytes/100 WBC (Bld) 13.6 % Low 19-41 [facility] Comment on above: Performed By: #### L 500.2500, L100.0100 #### [facility] [address] [place], [address] MCH (RBC) [Entitic mass] 31.8 pg Normal 27.0-32.0 [facility] Comment on above: Performed By: #### L 500.2500, L100.0100 #### [facility] [address] [place], [address] MCHC (RBC) [Mass/Vol] 34.1 g/dL Normal 32-36 [facility] Comment on above: Performed By: #### L 500.2500, L100.0100 #### [facility] [address] [place], [address] MCV (RBC) [Entitic vol] 93.2 fL Normal 80-94 [facility] Comment on above: Performed By: #### L 500.2500, L100.0100 #### [facility] [address] [place], [address] Monocytes/100 WBC (Bld) 10.7 % High 0-10 [facility] Comment on above: Performed By: #### L 500.2500, L100.0100 #### [facility] [address] [place], [address] Neutrophils/100 WBC (Bld) 74.4 % High 47-70 [facility] Comment on above: Performed By: #### L 500.2500, L100.0100 #### [facility] [address] [place], [address] Nucleated RBC (Bld) [#/Vol] 0 10*3/uL Normal 0-5 [facility] Comment on above: Performed By: #### L 500.2500, L100.0100 #### [facility] [address] [place], [address] Platelet mean volume (Bld) [Entitic vol] 11.4 fL Normal 6.2-12.0 [facility] Comment on above: Performed By: #### L 500.2500, L100.0100 #### [facility] [address] [place], [address] Platelets (Bld) [#/Vol] 121 10*3/uL Low 150-450 [facility] Comment on above: Performed By: #### L 500.2500, L100.0100 #### [facility] [address] [place], [address] RBC (Bld) [#/Vol] 3.81 10*6/uL Low 4.6-6.2 [facility] Comment on above: Performed By: #### L 500.2500, L100.0100 #### [facility] [address] [place], [address] RDW SD 43.7 fl Normal 35.1-43.9 [facility] Comment on above: Performed By: #### L 500.2500, L100.0100 #### [facility] [address] [place], [address] WBC (Bld) [#/Vol] 5.4 10*3/uL Normal 4.4-11.0 [facility] Comment on above: Performed By: #### L 500.2500, L100.0100 #### [facility] [address] [place], [address] Carbon dioxide, total [Moles /volume] in Central venous bloodOrdered By: Michael Allen on 02-08-2025 CO2 [Moles/Vol] 21.7 mmol/L 21.0-32.0 [facility] Chest 1 View (Portable)on Chest 1 View (Portable) [facility] Imaging Services [address] [place], [place] [id number] Chest 1 View (Portable) MR#: [id number] Acct: [id number] Name: SOPHIA CORTES Rep #: [id number] : 1940 M 84 From: Tomi Lindsay MD PCP: Care Physician,No Primary Status: [facility] ER Study: Chest 1 View (Portable) Date of Exam: 02/08/25 Exam# [id number] Ordering Dr: Michael Allen DO EXAM: XR Chest, 1 View CLINICAL INDICATION: COUGH TECHNIQUE: Frontal view of the chest. COMPARISON: No relevant prior studies available. FINDINGS: LUNGS AND PLEURAL SPACES: Unremarkable. No consolidation. No pneumothorax. HEART: Unremarkable. No cardiomegaly. MEDIASTINUM: Unremarkable. Normal mediastinal contour. BONES/JOINTS: Unremarkable. No acute fracture. TUBES, LINES AND DEVICES: Left-sided cardiac pacemaker. RAD/Chest 1 View (Portable) IMPRESSION: No acute cardiopulmonary process. Reading Location: [facility] CC: Dr. Michael Allen DO; No Primary Care Physician Family Readiness Support Assistant: Signed Normal [facility] Chloride assayOrdered By: Briana Allen on 02-08-2025 Chloride [Moles/Vol] 102 mmol/L 98-108 [facility] Comprehensive Metabolic Prof ilon 02-08-2025 Albumin [Mass/Vol] 3.9 g/dL Normal 3.4-4.8 [facility] Comment on above: Performed By: #### L 500.2500, L100.0100 #### [facility] [address] [place], [place], [address] Albumin/Globulin [Mass ratio] 1.4 {ratio} Normal 0.9-2.4 [facility] Comment on above: Performed By: #### L 500.2500, L100.0100 #### [facility] [address] [place], [address] ALK PHOS 91 U/L Normal 40-129 [facility] Comment on above: Performed By: #### L 500.2500, L100.0100 #### [facility] [address] [place], [address] ALT [Catalytic activity/Vol] 9 U/L Normal <=46 [facility] Comment on above: Performed By: #### L 500.2500, L100.0100 #### [facility] [address] [place], [address] AST [Catalytic activity/Vol] 19 U/L Normal <=37 [facility] Comment on above: Performed By: #### L 500.2500, L100.0100 #### [facility] [address] [place], [address] Bilirubin [Mass/Vol] 1.16 mg/dL Normal 0.00-1.30 [facility] Comment on above: Performed By: #### L 500.2500, L100.0100 #### [facility] [address] [place], [address] BUN/CRE 23.5 RATIO High 10-20 [facility] Comment on above: Performed By: #### L 500.2500, L100.0100 #### [facility] [address] [place], [address] Calcium [Mass/Vol] 9.2 mg/dL Normal 7.6-11.0 [facility] Comment on above: Performed By: #### L 500.2500, L100.0100 #### [facility] [address] [place], [address] Chloride [Moles/Vol] 102 mmol/L Normal 98-108 [facility] Comment on above: Performed By: #### L 500.2500, L100.0100 #### [facility] [address] [place], [address] CO2 [Moles/Vol] 21.7 mmol/L Normal 21.0-32.0 [facility] Comment on above: Performed By: #### L 500.2500, L100.0100 #### [facility] [address] [place], [address] Creatinine [Mass/Vol] 1.64 mg/dL High 0.70-1.20 [facility] Comment on above: Performed By: #### L 500.2500, L100.0100 #### [facility] [address] [place], [address] ECRCL 27.90 ml/min Low 50-250 [facility] Comment on above: Performed By: #### L 500.2500, L100.0100 #### [facility] [address] [place], [address] GAP 14 Normal 5-15 [facility] Comment on above: Performed By: #### L 500.2500, L100.0100 #### [facility] [address] [place], [address] GFR/1.73 sq M.predicted among non-blacks MDRD (S/P/Bld) [Vol rate/Area] 42 mL/min/{1.73_m2} Low >60 [facility] Comment on above: Result Comment: mL/m in/1.73m2 CKD-EPI Creatinine Equation (2020) Performed By: #### L 500.2500, L100.0100 #### [facility] [address] [place], [address] Globulin (S) [Mass/Vol] 2.8 g/dL Normal 2.2-4.2 [facility] Comment on above: Performed By: #### L 500.2500, L100.0100 #### [facility] [address] [place], [address] Glucose [Mass/Vol] 132 mg/dL High 70-99 [facility] Comment on above: Performed By: #### L 500.2500, L100.0100 #### [facility] [address] [place], [address] Potassium [Moles/Vol] 3.7 mmol/L Normal 3.3-5.1 [facility] Comment on above: Performed By: #### L 500.2500, L100.0100 #### [facility] [address] [place], [address] Sodium [Moles/Vol] 137 mmol/L Normal 133-145 [facility] Comment on above: Performed By: #### L 500.2500, L100.0100 #### [facility] [address] [place], [address] T PROT 6.7 g/dL Normal 5.9-8.4 [facility] Comment on above: Performed By: #### L 500.2500, L100.0100 #### [facility] [address] [place], [address] Urea nitrogen [Mass/Vol] 39 mg/dL High 4-19 [facility] Comment on above: Performed By: #### L 500.2500, L100.0100 #### [facility] [address] [place], [address] Emergency Department Summary on 02-08-2025 Emergency Department Summary [facility] Medical Records Department [address] [place] [address] Emergency Department Summary 02/08/25 MR#: [id number] Acct: [id number] Name: SOPHIA CORTES Hector Rep #: [id number] : 1940 84 From: Michael Allen DO PCP: Care Physician,No Primary Status:ADM MARCELA Location: [facility] XV240-7 HPI History of Present Illness Chief Complaint: General Illness Detail of Chief Complaint: Failure to thrive and needing halfway placement Informant: patient and family Narrative Narrative: Patient presents to the emergency department with his sister. He apparently is not doing well at home and lives alone. She feels he needs halfway placement. Patient recently admitted to a psychiatric facility for suicidal ideation on January 23. Patient has history of some dementia. Sister has medical power of commonwealth attorney for him. He is not eating and drinking normally. He is answering some questions but not really having conversations. Sister does not feel he can care for himself. He developed a slight cough a few days ago. [facility] Medical History (Updated 02/08/25 @ 13:[address] 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 (left ventricular) mural thrombus Atherosclerosis of douglas coronary 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 (07/28/09) Ischemic cardiomyopathy HLD (hyperlipidemia) Bradycardia Home Medications ???Medication ???Instructions ???Recorded ???Last Taken ???Type aspirin 81 mg tablet,delayed 81 mg PO QDAY 07/23/17 Unknown His tory release (Adult Aspirin Regimen) atorvastatin 80 mg tablet 80 mg PO QDAY #90 tabs 10/28/19 Un known Rx carvedilol 12.5 mg tablet 12.5 mg PO BID #180 tabs 09/23/24 Unknown Rx lisinopril 10 mg tablet 10 mg PO QDAY #90 tabs 09/23/24 Un known Rx acetaminophen 325 mg capsule 650 mg PO Q6H PRN pain 02/08/25 Un known History donepezil 10 mg tablet 10 mg PO DAILY 02/08/25 Unknown Hi story magnesium hydroxide 400 mg/5 mL 30 ml PO BID PRN constipation 01/12 04/07 Unknown History oral suspension (Dulcolax (magnesium hydroxide)) memantine 5 mg tablet 5 mg PO BID 02/08/25 Unknown Histo ry risperidone 1 mg tablet 1 mg PO BID 02/08/25 Unknown Histo ry Allergy/AdvReac Type Severity Reaction Status Date / Time No Known Allergies Allergy Verified 02/08/25 11:55 Family History Mother CAD (coronary artery disease) Myocardial infarction Aunt CAD (coronary artery disease) Myocardial infarction Uncle CAD (coronary artery disease) Myocardial infarction Surgical History Presence of automatic implantable cardioverter-defibr illator (07/23/12) History of coronary artery stent placement (07/28/09) Social History Smoking Status: Never smoker alcohol intake: never substance use type: does not use caffeine: Yes Type: coffee what type of physical activity do you participate in: walking frequency: daily duration: 60-90 minutes/day seatbelt use: always do you feel safe at home: Yes ROS ROS ED Review of Systems ROS Unobtainable: other Constitutional Constitutional ED: Reports lethargy; Denies chills, fever(s), sweats or weight loss Eyes Eyes: Denies blurry vision, change in vision or diplopia ENT ENT ED: Denies rhinorrhea or sore throat Cardiovascular Cardiovascular: Denies chest pain, orthopnea or racing heartbeat Respiratory/Chest Respiratory/Chest: Reports cough; Denies dyspnea, dyspnea on exertion, orthopnea or sputum Gastrointestinal Gastrointestinal: Denies abdominal pain, diarrhea, nausea or vomiting Genitourinary Genitourinary ED: Denies dysuria, hematuria or urinary frequency Musculoskeletal Musculoskeletal: Denies arthralgias, back pain, myalgias or neck pain Integumentary Denies abscess, Abrasions or rash Neurologic Neurologic: Denies headache(s) or weakness Psychiatric Psychiatric: Denies anxiety, depression or suicidal thoughts Endocrine Endocrinology: Denies polydipsia, polyphagia or polyuria Hematologic/Lymphat ic Hematologic/Lymphat ic: Denies easy bleeding, easy bruising or lymphadenopathy Allergic/Immunologi c Allergic/Immunologi c ED: Denies mouth swelling, tongue swelling or urticaria EXAM Physical Exam Const Vital Signs: 02/08/25 11:55 02/08/25 12:08 Temperature 96.9 F L Temperature Source Temporal Pulse Rate 53 L Respiratory Rate 14 Respiratory Effort Normal Non-Labored Respiratory Pattern Normal Blood Pressure 97/65 Blood Pressure Mean 75 Pulse Ox 98 Oxygen Delivery Method Room Air Positive well nourished and well developed General Appearance ED: well developed and NAD HEENT Reports TM's clear and moist mucous membranes normocephalic and atra (more content not included)... Normal [facility] Eosinophil percentageOrdered By: Michael Allen on 02-08-2025 Eosinophils/100 WBC (Bld) 0.7 % 0-5 [facility] Erythrocyte distribution wid th ratioOrdered By: Michael Allen on 02-08-2025 Erythrocyte distribution width (RBC) [Ratio] 12.8 % 11.6-14.6 [facility] Erythrocyte distribution wid th standard deviationOrdered By: Michael Allen on 02-08-2025 Erythrocyte distribution width (RBC) [Ratio] 43.7 fl 35.1-43.9 [facility] Glomerular filtration rate ( GFR) estimation/1.73 sq m using serum, plasma, or whole bOrdered By: Michael Allen on 02-08-2025 GFR/1.73 sq M.predicted among non-blacks MDRD (S/P/Bld) [Vol rate/Area] 42 mL/min/{1.73_m2} Low >60 [facility] Comment on above: mL/min/1.73m2 CKD-EP I Creatinine Equation (2020) H AND P Exam - [facility] 02-08-2025 H&P Exam - Hospitalist [facility] Medical Records Department [address] [place] [address] H P Exam - Hospitalist 02/08/25 1345 MR#: [id number] Acct: [id number] Name: SOPHIA CORTES Rep #: [id number] : 1940 84 From: Ajith Zimmer DO PCP: Care Physician,No Primary Status:ADM MARCELA [address]: [address] HPI - General General Date of Admission: 02/08/25 Date of Service: 02/08/25 Chief Complaint: Failure to thrive HPI Narrative SOPHIA CORTES, is a 84 M who presented to [facility] ED on 02/08/2025 with adult failure to thrive. Patient lives at home alone. He was recently seen in the ED here on 01/23 for suicidal ideation and was admitted to a psychiatric facility for this. Has history of dementia and sister is medical power of commonwealth attorney. Medical history otherwise significant for CAD with stenting, HFrEF with ischemic cardiomyopathy s/p ICD placement, NSVT and paroxysmal atrial flutter. He presented to the ED today with his sister. She noted that he has not been eating and drinking normally recently, has been more confused than his normal and she is very concerned about him being able to care for himself at home. In the ED he had sinus bradycardia to the low 50s but was otherwise normotensive and stable on room air. CBC fairly benign. BMP with creatinine 1.64 (baseline appears to be around 1.3), BUN 39, otherwise unremarkable. UA was benign. CT brain unremarkable. Given need for placement, hospitalist was contacted for admission. I saw the patient at bedside in the ED, sister was present. Patient was laying back in bed and making appropriate eye contact. He was alert and oriented to person and place but not time and had difficulty answering any other questions for me. He denied any pain or discomfort anywhere. No other acute concerns currently. Will be admitted for further management. 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) LV (left ventricular) mural thrombus Atherosclerosis of douglas coronary 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 (07/28/09) Ischemic cardiomyopathy HLD (hyperlipidemia) Bradycardia Home Medications ???Medication ???Instructions ???Recorded ???Last Taken ???Type aspirin 81 mg tablet,delayed 81 mg PO QDAY 07/23/17 Unknown His tory release (Adult Aspirin Regimen) atorvastatin 80 mg tablet 80 mg PO QDAY #90 tabs 10/28/19 Un known Rx carvedilol 12.5 mg tablet 12.5 mg PO BID #180 tabs 09/23/24 Unknown Rx lisinopril 10 mg tablet 10 mg PO QDAY #90 tabs 09/23/24 Un known Rx acetaminophen 325 mg capsule 650 mg PO Q6H PRN pain 02/08/25 Un known History donepezil 10 mg tablet 10 mg PO DAILY 02/08/25 Unknown Hi story magnesium hydroxide 400 mg/5 mL 30 ml PO BID PRN constipation 01/12 04/07 Unknown History oral suspension (Dulcolax (magnesium hydroxide)) memantine 5 mg tablet 5 mg PO BID 02/08/25 Unknown Histo ry risperidone 1 mg tablet 1 mg PO BID 02/08/25 Unknown Histo ry Allergy/AdvReac Type Severity Reaction Status Date / Time No Known Allergies Allergy Verified 02/08/25 11:55 Family History Mother CAD (coronary artery disease) Myocardial infarction Aunt CAD (coronary artery disease) Myocardial infarction Uncle CAD (coronary artery disease) Myocardial infarction Surgical History Presence of automatic implantable cardioverter-defibr illator (07/23/12) History of coronary artery stent placement (07/28/09) Social History Smoking Status: Never smoker alcohol intake: never substance use type: does not use caffeine: Yes Type: coffee what type of physical activity do you participate in: walking frequency: daily duration: 60-90 minutes/day seatbelt use: always do you feel safe at home: Yes ROS Review of Systems ROS Unobtainable: due to mental status Constitutional Constitutional: Reports fatigue; Denies chills or fever(s) Cardiovascular Cardiovascular: Denies chest pain Respiratory/Chest Respiratory/Chest: Denies shortness of breath at rest Gastrointestinal Gastrointestinal: Denies abdominal pain Vital Signs Vital Signs Vital Signs: 02/08/25 11:55 02/08/25 12:08 Temperature 96.9 F L Temperature Source Temporal Pulse Rate 53 L Respiratory Rate 14 Respiratory Effort Normal Non-Labored Respiratory Pattern Normal Blood Pressure 97/65 Blood Pressure Mean 75 Pulse Ox 98 Oxygen Delivery Method Room Air Weight Weight: 56.8 kg Body Mass Index (BMI) 19.5 Physical Exam Const alert and no apparent distress Constitutional Narrative: Elderly male, thin and somewhat cachectic appear (more content not included)... Normal [facility] Hematocrit Auto (Bld) [Volum e fraction]Ordered By: Michael Allen on 02-08-2025 Hematocrit (Bld) [Volume fraction] 35.5 % Low 40-54 [facility] Hemoglobin measurementOrdere d By: Michael Allen on 02-08-2025 Hemoglobin (Bld) [Mass/Vol] 12.1 g/dL Low 13.0-16.5 [facility] Immature granulocytes/100 WB C Auto (Bld)Ordered By: Michael Allen on 02-08-2025 Immature granulocytes/100 WBC (Bld) 0.400 % 0.0-0.9 [facility] Comment on above: IG% - Immature Granu locytes (promyelocytes, myelocytes and metamyelocytes) > 1% indicates that a LEFT SHIFT is Present. Influenza virus A and B and SARS-CoV-2 (COVID-19) and Respiratory syncytial virus RNAOrdered By: Michael Allen on 02-08-2025 SARS-CoV-2 (COVID-19) RNA JEAN+probe Ql (Unsp spec) [facility] Ketones Test strip Ql (U)Ord ered By: Michael Allen on 02-08-2025 Ketones Ql (U) 5 mg/dl High Negative [facility] Laboratory - Chemistry and C hemistry - challengeOrdered By: Michael Allen on 02-08-2025 AST [Catalytic activity/Vol] 19 U/L <38 [facility] M100.678on 02-08-2025 M100.678 SARS-CoV-2 (COVID 19) Negative INFLUENZA A Negative INFLUENZA B Negative RSV PCR Negative Normal [facility] Comment on above: Performed By: #### L 500.2500, L100.0100 #### [facility] [address] [place] [address], [id number] MCV (mean corpuscular volume ) determinationOrdered By: Michael Allen on 02-08-2025 MCV (RBC) [Entitic vol] 93.2 fL 80-94 [facility] Mean corpuscular hemoglobin (MCH) determinationOrdered By: Michael Allen on 02-08-2025 MCH (RBC) [Entitic mass] 31.8 pg 27.0-32.0 [facility] Mean corpuscular hemoglobin concentration (MCHC) determinationOrdered By: Michael Allen on 02-08-2025 MCHC (RBC) [Mass/Vol] 34.1 g/dL 32-36 [facility] Mean platelet volume determi nationOrdered By: Michael Allen on 02-08-2025 Platelet mean volume (Bld) [Entitic vol] 11.4 fL 6.2-12.0 [facility] Microscopic analysis of urin e for red blood cells (RBC)Ordered By: Michael Allen on 02-08-2025 Microscopic analysis of urine for red blood cells (RBC) 0 SEEN /hpf 0-5 [facility] Monocyte percentageOrdered B y: Michael Allen on 02-08-2025 Monocytes/100 WBC (Bld) 10.7 % High 0-10 [facility] Mucus LM Ql (Urine sed)Order ed By: Michael Allen on 02-08-2025 Mucus Ql (Urine sed) 0 SEEN /hpf [facility] Neutrophil percentageOrdered By: Michael Allen on 02-08-2025 Neutrophils/100 WBC (Bld) 74.4 % High 47-70 [facility] Nitrite Test strip Ql (U)Ord ered By: Michael Allen on 02-08-2025 Nitrite Ql (U) Negative Negative [facility] Nucleated red blood cell per centageOrdered By: Michael Allen on 02-08-2025 Nucleated RBC/100 WBC (Bld) [Ratio] 0 % 0-5 [facility] Platelet countOrdered By: Briana Allen on 02-08-2025 Platelets (Bld) [#/Vol] 121 10*3/uL Low 150-450 [facility] Potassium measurement (mass/ volume)Ordered By: Michael Allen on 02-08-2025 Potassium (Unsp spec) [Mass/Vol] 3.7 mmol/L 3.3-5.1 [facility] Protein Test strip Ql (U)Ord ered By: Michael Allen on 02-08-2025 Protein Ql (U) 30 mg/dl High Negative [facility] RBC Auto (Bld) [#/Vol]Ordere d By: Michael Allen on 02-08-2025 RBC (Bld) [#/Vol] 3.81 10*6/uL Low 4.6-6.2 [facility] Serum creatinine measurement (mass/volume)Ordered By: Michael Allen on 02-08-2025 Creatinine [Mass/Vol] 1.64 mg/dL High 0.70-1.20 [facility] Serum globulin measurementOr dered By: Michael Allen on 02-08-2025 Globulin (S) [Mass/Vol] 2.8 g/dL 2.2-4.2 [facility] Serum glucose measurement (m ass/volume)Ordered By: Michael Allen on 02-08-2025 Glucose [Mass/Vol] 132 mg/dL High 70-99 [facility] Serum or plasma alanine rutledge otransferase (ALT) measurementOrdered By: Sheilaus Allen on 02-08-2025 ALT [Catalytic activity/Vol] 9 U/L <47 [facility] Serum or plasma albumin diane urement (mass/volume)Ordered By: Michael Allen on 02-08-2025 Albumin [Mass/Vol] 3.9 g/dL 3.4-4.8 [facility] Serum or plasma albumin/glob ulin mass ratioOrdered By: Michael Allen on 02-08-2025 Albumin/Globulin [Mass ratio] 1.4 {ratio} 0.9-2.4 [facility] Serum or plasma alkaline albin sphatase measurementOrdered By: Michael Allen on 02-08-2025 ALP [Catalytic activity/Vol] 91 U/L 40-129 [facility] Serum or plasma calcium diane urement (mass/volume)Ordered By: Michael Alejandro on 02-08-2025 Calcium [Mass/Vol] 9.2 mg/dL 7.6-11.0 [facility] Serum or plasma urea nitroge n measurement (mass/volume)Ordered By: Michael Alejandro on 02-08-2025 Urea nitrogen [Mass/Vol] 39 mg/dL High 4-19 [facility] Sodium levelOrdered By: Wei Allen on 02-08-2025 Sodium [Moles/Vol] 137 mmol/L 133-145 [facility] Squamous epithelial cells de tection in urine sediment by light microscopyOrdered By: Michael Allen on 02-08-2025 Epithelial cells.squamous LM Ql (Urine sed) 0-5 SEEN /hpf 0-5 [facility] Total proteinOrdered By: Sheila Allen on 02-08-2025 Protein [Mass/Vol] 6.7 g/dL 5.9-8.4 [facility] Urinalysis, Completeon 02-08 EPI,SQUAMOUS 0-5 SEEN Normal 0-5 [facility] Comment on above: Order Comment: CLEAN CATCH Performed By: #### L 500.2500, L100.0100 #### [facility] [address] [place], [address] BACTERIA 0 SEEN Normal None Seen [facility] Comment on above: Order Comment: CLEAN CATCH Performed By: #### L 500.2500, L100.0100 #### [facility] [address] [place], [address] Mucus Ql (Urine sed) 0 SEEN Normal [facility] Comment on above: Order Comment: CLEAN CATCH Performed By: #### L 500.2500, L100.0100 #### [facility] [address] [place], [address] RBC 0 SEEN Normal 0-5 [facility] Comment on above: Order Comment: CLEAN CATCH Performed By: #### L 500.2500, L100.0100 #### [facility] [address] [place], [address] WBC 0 SEEN Normal 0-5 [facility] Comment on above: Order Comment: CLEAN CATCH Performed By: #### L 500.2500, L100.0100 #### [facility] [address] [place], [address] Urine clarityOrdered By: Sheila Allen on 02-08-2025 Clarity (U) Clear Clear [facility] Urine color determinationOrd ered By: Michael Allen on 02-08-2025 Color (U) Yellow Yellow [facility] Urine glucose detectionOrder ed By: Michael Allen on 02-08-2025 Glucose Ql (U) Normal mg/dl Normal [facility] Urine leukocyte esterase det ection by dipstickOrdered By: Michael Allen on 02-08-2025 Leukocyte esterase Test strip Ql (U) Negative Negative [facility] Urine pHOrdered By: Michael Weems gur on 02-08-2025 pH (U) 5.0 [pH] 5.0 - 8.0 [facility] Urine sediment bacteria coun t by microscopy (number/high power field)Ordered By: Michael Allen on 02-08-2025 Bacteria LM.HPF (Urine sed) [#/Area] 0 /[HPF] None Seen [facility] Urine specific gravity measu rementOrdered By: Michael Braggkar on 02-08-2025 Specific gravity (U) [Rel density] 1.025 1.002-1.030 [facility] Urine urobilinogen measureme ntOrdered By: Michael Alejandro on 02-08-2025 Urobilinogen Ql (U) 1 mg/dl High Normal [facility] White blood cell (WBC) count Ordered By: Michael Alejandro on 02-08-2025 WBC (Bld) [#/Vol] 5.4 10*3/uL 4.4-11.0 [facility] White blood cell countOrdere d By: Michael Alejandro on 02-08-2025 White blood cell count 0 SEEN /hpf 0-5 [facility] Absolute lymphocyte countOrd ered By: Henry Florentino on 01-23-2025 Lymphocytes Auto (Unsp spec) [#/Vol] 1.32 10*3/uL 0.83-4.51 [facility] Absolute neutrophil countOrd ered By: Henry Florentino on 01-23-2025 Neutrophils (Bld) [#/Vol] 2.5 10*3/uL 2.0-7.7 [facility] Alcohol, Blood (Medical)-Ser umon 01-23-2025 SERUM ETOH < 10.1 Normal <=10.0 [facility] Comment on above: Result Comment: This test is for medical purposes only. The legal definition of intoxication varies according to local law. Performed By: #### L 500.2500, L100.0100 #### [facility] [address] [place] [address], [address] Amphetamine detection with 1 000 ng/mL as cutoffOrdered By: Henry Florentino on 01-23-2025 Amphetamines Screen method >1000 ng/mL Ql (U) Negative < 200 ng/mL [facility] Anion gap in Serum or Plasma Ordered By: Henry Florentino on 01-23-2025 Anion gap [Moles/Vol] 13 mmol/L 5-15 [facility] Automated lymphocyte count a s percentage of total leukocytesOrdered By: Henry Florentino on 01-23-2025 Lymphocytes/100 WBC Auto (Unsp spec) 31.2 % - [facility] BUN/creatinine ratioOrdered By: Henry Florentino on 01-23-2025 Urea nitrogen/Creatinine [Mass ratio] 17.6 mg/mg - [facility] Basic Metabolic Profile (BMP )on 01-23-2025 BUN/CRE 17.6 RATIO Normal 05-02 [facility] Comment on above: Performed By: #### L 500.2500, L100.0100 #### [facility] [address] [place], [address] Calcium [Mass/Vol] 8.9 mg/dL Normal 7.6-11.0 [facility] Comment on above: Performed By: #### L 500.2500, L100.0100 #### [facility] [address] [place], [address] Chloride [Moles/Vol] 103 mmol/L Normal 98-108 [facility] Comment on above: Performed By: #### L 500.2500, L100.0100 #### [facility] [address] [place], [address] CO2 [Moles/Vol] 19.9 mmol/L Low 21.0-32.0 [facility] Comment on above: Performed By: #### L 500.2500, L100.0100 #### [facility] [address] [place], [address] Creatinine [Mass/Vol] 1.53 mg/dL High 0.70-1.20 [facility] Comment on above: Performed By: #### L 500.2500, L100.0100 #### [facility] [address] [place], [address] ECRCL 28.48 ml/min Low 50-250 [facility] Comment on above: Performed By: #### L 500.2500, L100.0100 #### [facility] [address] [place], [address] GAP 13 Normal 5-15 [facility] Comment on above: Performed By: #### L 500.2500, L100.0100 #### [facility] [address] [place], [address] GFR/1.73 sq M.predicted among non-blacks MDRD (S/P/Bld) [Vol rate/Area] 45 mL/min/{1.73_m2} Low >60 [facility] Comment on above: Result Comment: mL/m in/1.73m2 CKD-EPI Creatinine Equation (2020) Performed By: #### L 500.2500, L100.0100 #### [facility] [address] [place], [address] Glucose [Mass/Vol] 130 mg/dL High 70-99 [facility] Comment on above: Performed By: #### L 500.2500, L100.0100 #### [facility] [address] [place], [address] Potassium [Moles/Vol] 3.9 mmol/L Normal 3.3-5.1 [facility] Comment on above: Performed By: #### L 500.2500, L100.0100 #### [facility] [address] [place], [address] Sodium [Moles/Vol] 136 mmol/L Normal 133-145 [facility] Comment on above: Performed By: #### L 500.2500, L100.0100 #### [facility] [address] [place], [address] Urea nitrogen [Mass/Vol] 27 mg/dL High 4-19 [facility] Comment on above: Performed By: #### L 500.2500, L100.0100 #### [facility] [address] [place], [address] Basophil percentageOrdered B y: Henry Florentino on 01-23-2025 Basophils/100 WBC (Bld) 0.2 % 0-1 [facility] Bilirubin Test strip Ql (U)O rdered By: Henry Florentino on 01-23-2025 Bilirubin Ql (U) Negative Negative [facility] Brain/Head without Contrasto n 01-23-2025 Brain/Head without Contrast [facility] Imaging Services [address] [place] [address] Brain/Head without Contrast MR#: [id number] Acct: [id number] Name: SOPHIA CORTES Rep #: [id number] : 1940 M 84 From: Brian Alvarez MD PCP: Care Physician,No Primary Status: REG ER Study: Brain/Head without Contrast Date of Exam: 01/11 10/05 Exam# [id number] Ordering Dr: Moises Florentino DO PROCEDURE: BRAIN/HEAD WITHOUT CONTRAST 01/23/2025 REASON FOR EXAM: CONFUSION TECHNIQUE: BRAIN/HEAD WITHOUT CONTRAST Coronal and Sagittal reconstruction series were provided. One or more dose reduction techniques were used (e.g., Automated exposure control, adjustment of the mA and/or kV according to patient size, use of iterative reconstruction technique. RADIATION DOSE SUMMARY: CTDlvol: 44.99 mGy DLP: 796.11 mGycm COMPARISON: None. FINDINGS: Moderate global parenchymal atrophy. Periventricular white matter hypodensity likely representing chronic microvascular ischemia. The paranasal sinuses and mastoid air cells are clear. The calvarial vault and skull base are intact. CT/Brain/Head without Contrast IMPRESSION: NO ACUTE FINDINGS Reading Location: [id number] CC: Dr. Henry Florentino DO; No Primary Care Physician Family Readiness Support Assistant: Signed Normal [facility] CBC W/Diff, Automatedon 07-1 3-2025 Absolute Lymph 1.32 X10 3/uL Normal 0.83-4.51 [facility] Comment on above: Performed By: #### L 500.2500, L100.0100 #### [facility] [address] [place], [address] Absolute Neut 2.5 X10 3/uL Normal 2.0-7.7 [facility] Comment on above: Performed By: #### L 500.2500, L100.0100 #### [facility] [address] [place], [address] Basophils/100 WBC (Bld) 0.2 % Normal 0-1 [facility] Comment on above: Performed By: #### L 500.2500, L100.0100 #### [facility] [address] [place], [address] Eosinophils/100 WBC (Bld) 1.7 % Normal 0-5 [facility] Comment on above: Performed By: #### L 500.2500, L100.0100 #### [facility] [address] [place], [address] Erythrocyte distribution width (RBC) [Ratio] 12.2 % Normal 11.6-14.6 [facility] Comment on above: Performed By: #### L 500.2500, L100.0100 #### [facility] [address] [place], [address] Hematocrit (Bld) [Volume fraction] 34.1 % Low 40-54 [facility] Comment on above: Performed By: #### L 500.2500, L100.0100 #### [facility] [address] [place], [address] Hemoglobin (Bld) [Mass/Vol] 11.8 g/dL Low 13.0-16.5 [facility] Comment on above: Performed By: #### L 500.2500, L100.0100 #### [facility] [address] [place], [address] IG% 0.200 Normal 0.0-0.9 [facility] Comment on above: Result Comment: IG% - Immature Granulocytes (promyelocytes, myelocytes and metamyelocytes) > 1% indicates that a LEFT SHIFT is Present. Performed By: #### L 500.2500, L100.0100 #### [facility] [address] [place], [address] Lymphocytes/100 WBC (Bld) 31.2 % Normal 19-41 [facility] Comment on above: Performed By: #### L 500.2500, L100.0100 #### [facility] [address] [place], [address] MCH (RBC) [Entitic mass] 31.7 pg Normal 27.0-32.0 [facility] Comment on above: Performed By: #### L 500.2500, L100.0100 #### [facility] [address] [place], [address] MCHC (RBC) [Mass/Vol] 34.6 g/dL Normal 32-36 [facility] Comment on above: Performed By: #### L 500.2500, L100.0100 #### [facility] [address] [place], [address] MCV (RBC) [Entitic vol] 91.7 fL Normal 80-94 [facility] Comment on above: Performed By: #### L 500.2500, L100.0100 #### [facility] [address] [place], [address] Monocytes/100 WBC (Bld) 8.7 % Normal 0-10 [facility] Comment on above: Performed By: #### L 500.2500, L100.0100 #### [facility] [address] [place], [address] Neutrophils/100 WBC (Bld) 58.0 % Normal 47-70 [facility] Comment on above: Performed By: #### L 500.2500, L100.0100 #### [facility] [address] [place], [address] Nucleated RBC (Bld) [#/Vol] 0 10*3/uL Normal 0-5 [facility] Comment on above: Performed By: #### L 500.2500, L100.0100 #### [facility] [address] [place], [address] Platelet mean volume (Bld) [Entitic vol] 12.1 fL High 6.2-12.0 [facility] Comment on above: Performed By: #### L 500.2500, L100.0100 #### [facility] [address] [place], [address] Platelets (Bld) [#/Vol] 136 10*3/uL Low 150-450 [facility] Comment on above: Performed By: #### L 500.2500, L100.0100 #### [facility] [address] [place], [address] RBC (Bld) [#/Vol] 3.72 10*6/uL Low 4.6-6.2 [facility] Comment on above: Performed By: #### L 500.2500, L100.0100 #### [facility] [address] [place], [address] RDW SD 41.1 fl Normal 35.1-43.9 [facility] Comment on above: Performed By: #### L 500.2500, L100.0100 #### [facility] [address] [place], [address] WBC (Bld) [#/Vol] 4.2 10*3/uL Low 4.4-11.0 [facility] Comment on above: Performed By: #### L 500.2500, L100.0100 #### [facility] [address] [place], [address] Carbon dioxide, total [Moles /volume] in Central venous bloodOrdered By: Henry Florentino on 01-23-2025 CO2 [Moles/Vol] 19.9 mmol/L Low 21.0-32.0 [facility] Chloride assayOrdered By: Dinh Florentino on 01-23-2025 Chloride [Moles/Vol] 103 mmol/L 98-108 [facility] Emergency Department Summary on 01-23-2025 Emergency Department Summary [facility] Medical Records Department [address] [place] [address] Emergency Department Summary 01/23/25 MR#: [id number] Acct: [id number] Name: SOPHIA CORTES Rep #: [id number] : 1940 84 From: Henry Florentino DO PCP: Care Physician,No Primary Status:REG ER Location: ED ADDENDUM by Dr. Henry Florentino DO on 01/23/25 at 0806 UA negative for UTI. 01/23/25 0806 Cosigner Signature (if applicable): cc: No Primary Care Physician * Signed HPI History of Present Illness Chief Complaint: Suicidal Narrative Narrative: Chief complaint and HPI: Suicidal ideation. 84-year-old male with past medical history of HTN, HLD presents as a pink slip by police for suicidal ideation. Police officers responded to a threat complaint as patient was making threats to his neighbors. He then stated multiple times that he wanted to end it all and put a gun to his head. On presentation, patient is calm and sitting in the bed. He repeats " I am just tired of this and want to end it." When I asked him about the reported statement that he wanted to end his life with a gun, he states that is not true. Although he did state it to my nurse prior to me entering the room. He denies homicidal ideation. He states he does not want to talk to me and does not want to answer my questions. Review of systems: See HPI Medications: As listed on the chart Allergies: As listed on the chart PFSH: Per chart Vital signs: As listed on the chart. Reviewed. Physical exam: Gen: A O x3, NAD Head: Normocephalic, atraumatic Eyes: No sclera icterus, conjunctiva clear, PERRL ENT: Moist mucous membranes Neck: Trachea midline, No JVD CV: RRR, no murmurs, no peripheral edema Resp: Lungs CTA BL, no w/r/c GI: Abd soft, non-distended, non-tender, no r/r/g Musc: Full ROM, no deformity Skin: Warm, dry Neuro: Alert, oriented, grossly intact, sensation intact Psych: Uncooperative [facility] Medical History (Updated 05/10/24 @ 15:22 by Marcelino Arizmendi [employer]LEY [employer] OVER[employer], [employer]LEY [employer] OVER[employer]-C) 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) LV (left ventricular) mural thrombus Atherosclerosis of douglas coronary 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 (07/28/09) Ischemic cardiomyopathy HLD (hyperlipidemia) Bradycardia Home Medications ???Medication ???Instructions ???Recorded ???Last Taken ???Type aspirin 81 mg tablet,delayed 81 mg PO QDAY 07/23/17 Unknown His tory release (Adult Aspirin Regimen) atorvastatin 80 mg tablet 80 mg PO QDAY #90 tabs 10/28/19 Un known Rx carvedilol 12.5 mg tablet 12.5 mg PO BID #180 tabs 09/23/24 Unknown Rx lisinopril 10 mg tablet 10 mg PO QDAY #90 tabs 09/23/24 Un known Rx Allergy/AdvReac Type Severity Reaction Status Date / Time No Known Allergies Allergy Verified 12/01/24 14:17 Family History Mother CAD (coronary artery disease) Myocardial infarction Aunt CAD (coronary artery disease) Myocardial infarction Uncle CAD (coronary artery disease) Myocardial infarction Surgical History Presence of automatic implantable cardioverter-defibr illator (07/23/12) History of coronary artery stent placement (07/28/09) Social History Smoking Status: Never smoker alcohol intake: never substance use type: does not use caffeine: Yes Type: coffee what type of physical activity do you participate in: walking frequency: daily duration: 60-90 minutes/day seatbelt use: always do you feel safe at home: Yes EXAM Physical Exam Const Vital Signs: 01/22/25 23:50 01/23/25 00:49 01/23/25 02:00 Temperature 98.3 F Temperature Source Oral Pulse Rate 58 L 84 91 Respiratory Rate 16 18 16 Blood Pressure 149/110 H 138/96 H 132/89 H Blood Pressure Mean 123 110 103 Pulse Ox 100 98 99 Oxygen Delivery Method Room Air 01/23/25 02:54 Temperature Temperature Source Pulse Rate 94 Respiratory Rate 16 Blood Pressure 141/99 H Blood Pressure Mean 113 Pulse Ox 99 Oxygen Delivery Method MDM MDM MDM Narrative Medical decision making narrative: 84-year-old male with past medical history of HTN, HLD presents as a pink slip by police for suicidal ideation. See HPI. On presentation, patient is alert and oriented x 3 but is reluctant to speak with me. He states that " I am just sick of it all." He told my nurse prior to me entering the room that he did want to kill himself with a gun. Given the reports from police, my nurse, and my own assessment, patient will be pink slipped for suicidal ideation. He was informed of this. Confirmed understanding. Basic labs ordered and crisis consulted. CBC shows pancytopenia with a WBC of 4.2, hemoglobin 11.8, and (more content not included)... Normal [facility] Eosinophil percentageOrdered By: Henry [place] on 01-23-2025 Eosinophils/100 WBC (Bld) 1.7 % 0-5 [facility] Erythrocyte distribution wid th ratioOrdered By: Henry [place] on 01-23-2025 Erythrocyte distribution width (RBC) [Ratio] 12.2 % 11.6-14.6 [facility] Erythrocyte distribution wid th standard deviationOrdered By: Henry Figueroa on 01-23-2025 Erythrocyte distribution width (RBC) [Ratio] 41.1 fl 35.1-43.9 [facility] Glomerular filtration rate ( GFR) estimation/1.73 sq m using serum, plasma, or whole bOrdered By: Henry [place] on 01-23-2025 GFR/1.73 sq M.predicted among non-blacks MDRD (S/P/Bld) [Vol rate/Area] 45 mL/min/{1.73_m2} Low >60 [facility] Comment on above: mL/min/1.73m2 CKD-EP I Creatinine Equation (2020) Hematocrit Auto (Bld) [Volum e fraction]Ordered By: Henry [place] on 01-23-2025 Hematocrit (Bld) [Volume fraction] 34.1 % Low 40-54 [facility] Hemoglobin measurementOrdere d By: Henry [place] on 01-23-2025 Hemoglobin (Bld) [Mass/Vol] 11.8 g/dL Low 13.0-16.5 [facility] Immature granulocytes/100 WB C Auto (Bld)Ordered By: Henry [place] on 01-23-2025 Immature granulocytes/100 WBC (Bld) 0.200 % 0.0-0.9 [facility] Comment on above: IG% - Immature Granu locytes (promyelocytes, myelocytes and metamyelocytes) > 1% indicates that a LEFT SHIFT is Present. Ketones Test strip Ql (U)Ord ered By: Henry [place] on 01-23-2025 Ketones Ql (U) Negative Negative [facility] MCV (mean corpuscular volume ) determinationOrdered By: Henry [place] on 01-23-2025 MCV (RBC) [Entitic vol] 91.7 fL 80-94 [facility] Mean corpuscular hemoglobin (MCH) determinationOrdered By: Henry [place] on 01-23-2025 MCH (RBC) [Entitic mass] 31.7 pg 27.0-32.0 [facility] Mean corpuscular hemoglobin concentration (MCHC) determinationOrdered By: Henry [place] on 01-23-2025 MCHC (RBC) [Mass/Vol] 34.6 g/dL 32-36 [facility] Mean platelet volume determi nationOrdered By: Henry [place] on 01-23-2025 Platelet mean volume (Bld) [Entitic vol] 12.1 fL High 6.2-12.0 [facility] Microscopic analysis of urin e for red blood cells (RBC)Ordered By: Henry [place] on 01-23-2025 Microscopic analysis of urine for red blood cells (RBC) 0-5 SEEN /hpf 0-5 [facility] Monocyte percentageOrdered B y: Henry [place] on 01-23-2025 Monocytes/100 WBC (Bld) 8.7 % 0-10 [facility] Mucus LM Ql (Urine sed)Order ed By: Henry [place] on 01-23-2025 Mucus Ql (Urine sed) 0 SEEN /hpf [facility] Neutrophil percentageOrdered By: Henry [place] on 01-23-2025 Neutrophils/100 WBC (Bld) 58.0 % 47-70 [facility] Nitrite Test strip Ql (U)Ord ered By: Henry [place] on 01-23-2025 Nitrite Ql (U) Negative Negative [facility] No Panel InformationOrdered By: Henry [place] on 01-23-2025 Urine Buprenorphine Qualitative Negative < 200 ng/mL [facility] Urine Oxycodone Screen Negative < 100 ng/mL [facility] Nucleated red blood cell per centageOrdered By: Henry [place] on 01-23-2025 Nucleated RBC/100 WBC (Bld) [Ratio] 0 % 0-5 [facility] Platelet countOrdered By: Dinh [place]ino on 01-23-2025 Platelets (Bld) [#/Vol] 136 10*3/uL Low 150-450 [facility] Potassium measurement (mass/ volume)Ordered By: Henry [place] on 01-23-2025 Potassium (Unsp spec) [Mass/Vol] 3.9 mmol/L 3.3-5.1 [facility] Protein Test strip Ql (U)Ord ered By: Henry [place] on 01-23-2025 Protein Ql (U) 30 mg/dl High Negative [facility] Quantitative urine opiates m easurementOrdered By: Henry [place] on 01-23-2025 Opiates Ql (U) Negative < 300 ng/mL [facility] RBC Auto (Bld) [#/Vol]Ordere d By: Henry [place] on 01-23-2025 RBC (Bld) [#/Vol] 3.72 10*6/uL Low 4.6-6.2 [facility] Screening urine fentanyl kelley surementOrdered By: Henry [place]ino on 01-23-2025 fentaNYL Screen Ql (U) Negative [facility] Serum creatinine measurement (mass/volume)Ordered By: Henry [place]ino on 01-23-2025 Creatinine [Mass/Vol] 1.53 mg/dL High 0.70-1.20 [facility] Serum glucose measurement (m ass/volume)Ordered By: Henry Florentino on 01-23-2025 Glucose [Mass/Vol] 130 mg/dL High 70-99 [facility] Serum or plasma calcium diane urement (mass/volume)Ordered By: Henry Figueroa on 01-23-2025 Calcium [Mass/Vol] 8.9 mg/dL 7.6-11.0 [facility] Serum or plasma ethanol diane urement (mass/volume)Ordered By: Henry Figueroa on 01-23-2025 Ethanol [Mass/Vol] mg/dL <10.1 [facility] Comment on above: This test is for med ical purposes only. The legal definition of intoxication varies according to local law. Serum or plasma urea nitroge n measurement (mass/volume)Ordered By: Henry [place]ino on 01-23-2025 Urea nitrogen [Mass/Vol] 27 mg/dL High 4-19 [facility] Sodium levelOrdered By: Moises [place] on 01-23-2025 Sodium [Moles/Vol] 136 mmol/L 133-145 [facility] Squamous epithelial cells de tection in urine sediment by light microscopyOrdered By: Henry Fl[place]ino on 01-23-2025 Epithelial cells.squamous LM Ql (Urine sed) 0 SEEN /hpf 0-5 [facility] Urinalysis, Completeon 01-23 RBC 0-5 SEEN Normal 0-5 [facility] Comment on above: Order Comment: SAAD CTOR TO SPECIFY Performed By: #### L 500.2500, L100.0100 #### [facility] [address] [place], [address] BACTERIA 0 SEEN Normal None Seen [facility] Comment on above: Order Comment: SAAD CTOR TO SPECIFY Performed By: #### L 500.2500, L100.0100 #### [facility] [address] [place], [address] EPI,SQUAMOUS 0 SEEN Normal 0-5 [facility] Comment on above: Order Comment: SAAD CTOR TO SPECIFY Performed By: #### L 500.2500, L100.0100 #### [facility] [address] [place], [address] Mucus Ql (Urine sed) 0 SEEN Normal [facility] Comment on above: Order Comment: SAAD CTOR TO SPECIFY Performed By: #### L 500.2500, L100.0100 #### [facility] [address] [place], [address] WBC 0 SEEN Normal 0-5 [facility] Comment on above: Order Comment: SAAD CTOR TO SPECIFY Performed By: #### L 500.2500, L100.0100 #### [facility] [address] [place], [address] Urine Drug Screen (VISTA)on 01-23-2025 AMPHETAMINES Negative Normal <1000 ng/mL [facility] Comment on above: Performed By: #### L 500.2500, L100.0100 #### [facility] [address] [place], [address] BARBITIURATES Negative Normal < 200 ng/mL [facility] Comment on above: Performed By: #### L 500.2500, L100.0100 #### [facility] [address] [place], [address] BENZODIAZIPINE Negative Normal < 200 ng/mL [facility] Comment on above: Performed By: #### L 500.2500, L100.0100 #### [facility] [address] [place], [address] BUP Ur Drug Scr Negative Normal < 200 ng/mL [facility] Comment on above: Performed By: #### L 500.2500, L100.0100 #### [facility] [address] [place], [address] COCAINE Negative Normal < 300 ng/mL [facility] Comment on above: Performed By: #### L 500.2500, L100.0100 #### [facility] [address] [place], [address] Fentanyl Negative Normal [facility] Comment on above: Performed By: #### L 500.2500, L100.0100 #### [facility] [address] [place], [address] METHADONE Negative Normal < 300 ng/mL [facility] Comment on above: Performed By: #### L 500.2500, L100.0100 #### [facility] [address] [place], [address] OPIATES Negative Normal < 300 ng/mL [facility] Comment on above: Performed By: #### L 500.2500, L100.0100 #### [facility] [address] [place], [address] OXYCODONE Negative Normal < 100 ng/mL [facility] Comment on above: Performed By: #### L 500.2500, L100.0100 #### [facility] [address] [place], [address] PCP Negative Normal < 25 ng/mL [facility] Comment on above: Performed By: #### L 500.2500, L100.0100 #### [facility] [address] [place], [address] THC Negative Normal < 50 ng/mL [facility] Comment on above: Performed By: #### L 500.2500, L100.0100 #### [facility] [address] [place], [address] Urine benzodiazepine levelOr dered By: Henry [place] on 01-23-2025 Benzodiazepines Ql (U) Negative < 200 ng/mL [facility] Urine clarityOrdered By: Ben [place] on 01-23-2025 Clarity (U) Clear Clear [facility] Urine cocaine levelOrdered B y: Henry [place] on 01-23-2025 Cocaine Ql (U) Negative < 300 ng/mL [facility] Urine color determinationOrd ered By: Henry [place] on 01-23-2025 Color (U) Yellow Yellow [facility] Urine jgkhu-2-miwumejwisbwkv abinol (THC) measurementOrdered By: Henry Figueroa on 01-23-2025 Cannabinoids Screen Ql (U) Negative < 50 ng/mL [facility] Urine glucose detectionOrder ed By: Henry [place] on 01-23-2025 Glucose Ql (U) Normal mg/dl Normal [facility] Urine leukocyte esterase det ection by dipstickOrdered By: Henry [place] on 01-23-2025 Leukocyte esterase Test strip Ql (U) Negative Negative [facility] Urine pHOrdered By: Henry Hale on 01-23-2025 pH (U) 5.0 [pH] 5.0 - 8.0 [facility] Urine phencyclidine (PCP) de tectionOrdered By: Henry [place] on 01-23-2025 Phencyclidine Ql (U) Negative < 25 ng/mL [facility] Urine sediment bacteria coun t by microscopy (number/high power field)Ordered By: Henry [place] on 01-23-2025 Bacteria LM.HPF (Urine sed) [#/Area] 0 /[HPF] None Seen [facility] Urine specific gravity measu rementOrdered By: Henry [place] on 01-23-2025 Specific gravity (U) [Rel density] 1.025 1.002-1.030 [facility] Urine urobilinogen measureme ntOrdered By: [facility] Center[facility]ipak[facility] on 01-23-2025 Urobilinogen Ql (U) Normal mg/dl Normal [facility] White blood cell (WBC) count Or[facility]: [facility] on 01-23-2025 WBC (Bld) [#/Vol] 4.2 10*3/uL Low 4.4-11.0 [facility] White blood cell countOrdere d By: HenryMimbres Memorial HospitalHina on 01-23-2025 White blood cell count 0 SEEN /hpf 0-5 [facility] Cardiology Visit Reporton Cardiology Visit Report [facility] [place] [address] [facility] [place] [address] OFFICE VISIT Date of Service: 12/01/24 MR#: [id number] Acct: [id number] Name: SOPHIA CORTES Rep #: [id number] : 1940 Provider: TOMAS rushing Age/Sex: 83/M Location: [facility] Status: Signed HPI HPI History of [...] Visit Reasons: 1 Y FU/GINA @ 2 Process Planner Required: No Is patient in pain?: No Allergies No Known Allergies Allergy (Verified 12/01/24 14:17) Have you fallen in the past year?: No PFSH Medical History (Updated 05/10/24 @ 15:22 by Marcelino Arizmendi [employer]OLLEY [employer] OVER[employer]ER, [employer]LEY [employer] OVERHA[employer]ER-C) 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) LV (left ventricular) mural thrombus Atherosclerosis of douglas coronary 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 (07/28/09) Ischemic cardiomyopathy [...] affect S (more content not included)... Normal [facility] Pacemaker Checkon 12-01-2024 Pacemaker Check [facility] [address] [place] [address]. [address] [place] [address] Pacemaker Check Date of Service: 12/01/24 1714 MR#: [id number] Acct: [id number] Name: CAITYJOSESOPHIA D Rep #: [id number] : 1940 From: Toya Herrera Age/Sex: 83/M [place] [facility] [place] Status: Signed Billing Codes ICD Device Billin ICD Dev Prog Eval, Dual Assessment and Plan Assessment and Plan (1) Ischemic cardiomyopathy: Status: Chronic (2) Presence of automatic implantable cardioverter-defibr illator: Status: Chronic Comment: [employer] ICD Dual Chamber (3) NSVT (nonsustained ventricular tachycardia): Status: Chronic 12/01/24 1714 Date Toya Gonzalez Signature: Date (if applicable) CC: Normal [facility] Cardiology Visit Reporton Cardiology Visit Report [facility] [address] [address] [place] [address] OFFICE VISIT Date of Service: 05/10/24 MR#: [id number] Acct: [id number] Name: SOPHIA CORTES Rep #: [id number] : 1940 Provider: TOMAS rushing Age/Sex: 83/M Location: [facility] Status: Signed HPI HPI History of [...] 6 M FU ICD f/u @ 2:30pm Process Planner Required: No Accompanied by: Sister Is patient [...] doesn't know what medications that he takes. [facility] Medical History (Updated 05/10/24 @ 15:22 by Marcelino Arizmendi [employer]OLLEY [employer] OVERHAULER, [employer]OLLEY CAR OVERHAULER-C) 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) LV (left ventricular) mural thrombus Atherosclerosis of douglas coronary 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 (07/28/09) Ischemic cardiomyopathy [...] Yes left (more content not included)... Normal [facility] Pacemaker Checkon 05-10-2024 Pacemaker Check [facility] [place] [address] Pacemaker Check Date of Service: 05/10/24 150 MR#: [id number] Acct: [id number] Name: SOPHIA CORTES Hector Rep #: [id number] : 1940 From: Toya Herrera Age/Sex: 83/M [place] [facility] [place] Status: Signed Billing Codes ICD Device Billin ICD Dev Prog Eval, Dual Assessment and Plan Assessment and Plan (1) Ischemic cardiomyopathy: Status: Chronic (2) Presence of automatic implantable cardioverter-defibr illator: Status: Chronic Comment: [employer] ICD Dual Chamber (3) Bradycardia: Status: Chronic 05/10/241503 Date Toya Gonzalez Signature: Date (if applicable) CC: Normal [facility] Pacemaker Checkon 03-05-2024 Pacemaker Check [facility] [place] [facility] [address] [place] [address] Pacemaker Check Date of Service: 03/05/24 1252 MR#: [id number] Acct: [id number] Name: SOPHIA CORTES Rep #: [id number] : 1940 From: Toya Herrera Age/Sex: 83/M [place] [facility] [place] Status: Signed Billing Codes ICD Device Billing: ICD Dev Prog Eval, Dual Assessment and Plan Assessment and Plan (1) NSVT (nonsustained ventricular tachycardia): Status: Acute (2) Ischemic cardiomyopathy: Status: Chronic (3) Presence of automatic implantable cardioverter-defibr illator: Status: Chronic Comment: [employer] Energen ICD Dual Chamber 03/05/24 1253 Date Toya Gonzalez Signature: Date (if applicable) CC: Normal [facility] Absolute lymphocyte countOrd ered By: Marcelino Arizmendi on 11-10-2023 Lymphocytes Auto (Unsp spec) [#/Vol] 1.08 10*3/uL 0.83-4.51 [facility] Automated lymphocyte count a s percentage of total leukocytesOrdered By: Marcelino Arizmendi on 11-10-2023 Lymphocytes/100 WBC Auto (Unsp spec) 19.5 % 19-41 [facility] Basophil percentageOrdered B y: Marcelino Arizmendi on 11-10-2023 Basophils/100 WBC (Bld) 0.4 % 0-1 [facility] Bilirubin [Mass/Vol] 1.20 mg/dL 0.20-1.00 [facility] Comment on above: For patients on eltr ombopag therapy, use of Dimension Axson TBIL is not recommended. Chloride [Moles/Vol] 107 mmol/L 98-107 [facility] Eosinophils/100 WBC (Bld) 0.9 % 0-5 [facility] Glucose [Mass/Vol] 97 mg/dL 74-106 [facility] Hemoglobin (Bld) [Mass/Vol] 14.0 g/dL 13.0-16.5 [facility] Monocytes/100 WBC (Bld) 7.9 % 0-10 [facility] Neutrophils (Bld) [#/Vol] 4.0 10*3/uL 2.0-7.7 [facility] Neutrophils/100 WBC (Bld) 71.1 % 47-70 [facility] Potassium [Moles/Vol] 4.3 mmol/L 3.5-5.1 [facility] Protein [Mass/Vol] 7.6 g/dL 6.4-8.2 [facility] Sodium [Moles/Vol] 137 mmol/L 136-145 [facility] WBC (Bld) [#/Vol] 5.6 10*3/uL 4.4-11.0 [facility] Blood manual differential co mment interpretation (narrative result)Ordered By: Marcelino Arizmendi on 11-10-2023 Manual differential comment Eduardo (Bld) [Interp] SCANNED [facility] Comment on above: Please note: For [...] 11-10-2023 Platelets LM Ql (Bld) ADEQUATE ADEQ [facility] Determination of erythrocyte mean corpuscular volume (MCV)Ordered By: Marcelino Arizmendi on 11-10-2023 MCV (RBC) [Entitic vol] 93.6 fL 80-94 [facility] Erythrocyte distribution wid th ratioOrdered By: Marcelino Arizmendi on 11-10-2023 Erythrocyte distribution width (RBC) [Ratio] 13.4 % 11.6-14.6 [facility] Erythrocyte distribution wid th standard deviationOrdered By: Marcelino Arizmendi on 11-10-2023 Erythrocyte distribution width (RBC) [Entitic vol] 45.7 fL 35.1-43.9 [facility] Hematocrit Auto (Bld) [Volum e fraction]Ordered By: Marcelino Arizmendi on 11-10-2023 Hematocrit (Bld) [Volume fraction] 42.7 % 40-54 [facility] Immature granulocytes/100 WB C Auto (Bld)Ordered By: Marcelino Arizmendi on 11-10-2023 Immature granulocytes/100 WBC (Bld) 0.200 % 0.0-0.9 [facility] Comment on above: IG% - Immature Granu locytes (promyelocytes, myelocytes and metamyelocytes) > 1% indicates that a LEFT SHIFT is Present. Laboratory - Chemistry and C hemistry - challengeOrdered By: Marcelino Arizmendi on 11-10-2023 Albumin/Globulin [Mass ratio] 1.1 {ratio} 0.9-2.4 [facility] ALP [Catalytic activity/Vol] 71 U/L 45-117 [facility] ALT [Catalytic activity/Vol] 19 U/L 16-61 [facility] CO2 [Moles/Vol] 21.0 mmol/L 21.0-32.0 [facility] Globulin (S) [Mass/Vol] 3.7 g/dL 2.2-4.2 [facility] Magnesium [Mass/Vol] 2.3 mg/dL 1.6-2.6 [facility] Urea nitrogen/Creatinine [Mass ratio] 15.7 mg/mg 10-20 [facility] Laboratory - Hematology and Cell countsOrdered By: Marcelino Arizmendi on 11-10-2023 MCH (RBC) [Entitic mass] 30.7 pg 27.0-32.0 [facility] MCHC (RBC) [Mass/Vol] 32.8 g/dL 32-36 [facility] Nucleated RBC/100 WBC (Bld) [Ratio] 0 % 0-5 [facility] Platelet mean volume (Bld) [Entitic vol] 11.2 fL 6.2-12.0 [facility] No Panel InformationOrdered By: Marcelino Arizmendi on 11-10-2023 Estimated GFR (MDRD) Amer 70 mL/min >60 [facility] Comment on above: GFR Calc Estimated GFR (MDRD) Non-Af Amer 58 mL/min >60 [facility] Comment on above: Non- GFR Calc Platelet Count TNP [facility] Comment on above: Test not performedPl [...] 11-10-2023 RBC (Bld) [#/Vol] 4.56 10*6/uL 4.6-6.2 [facility] Serum or plasma calcium diane urement (mass/volume)Ordered By: Marcelino Arizmendi on 11-10-2023 Calcium [Mass/Vol] 9.1 mg/dL 8.5-10.1 [facility] Serum or plasma creatinine m easurement (mass/volume)Ordered By: Marcelino Arizmendi on 11-10-2023 Creatinine [Mass/Vol] 1.27 mg/dL 0.70-1.30 [facility] Comment on above: The validity of the calculated GFR & GFRAA in patients over 70 years has not been determined. Clinical correlation is essential. Serum or plasma thyroid stim ulating hormone (TSH) measurement (units/volume)Ordered By: Marcelino Arizmendi on 11-10-2023 TSH Qn 1.52 uIU/mL 0.358-3.74 [facility] Serum or plasma urea nitroge n measurement (mass/volume)Ordered By: Marcelino Arizmendi on 11-10-2023 Urea nitrogen [Mass/Vol] 20 mg/dL 7-18 [facility] Thin prep Papanicolaou smear with manual screeningOrdered By: Marcelino Arizmendi on 11-10-2023 Thin prep Papanicolaou smear with manual screening 3.9 g/dL 3.2-5.0 [facility] Thin prep Papanicolaou smear with manual screening 23 U/L 15-37 [facility] Thin prep Papanicolaou smear with manual screening 9 5-15 [facility] Thin prep Papanicolaou smear with manual screening 1.24 ng/dL 0.76-1.46 [facility] Basophil percentageOrdered B y: Marcelino Arizmendi on 10-22-2023 Bilirubin [Mass/Vol] 0.90 mg/dL 0.20-1.00 [facility] Comment on above: For patients on eltr ombopag therapy, use of Dimension Axson TBIL is not recommended. Cholesterol [Mass/Vol] 171 mg/dL <200 [facility] Comment on above: <200 mg/dL Desirable 200-240 mg/dL Borderline >240 mg/dL High Risk Protein [Mass/Vol] 6.8 g/dL 6.4-8.2 [facility] Triglyceride [Mass/Vol] 96 mg/dL <199 [facility] Comment on above: The drugs N-Acetylcy steine and Metamizole may falsely depress this assay.Serum Triglycerides Reference Interval Normal <150 mg/dL Borderline high 150 - 199 mg/dL High 200 - 499 mg/dL Very High > or = 500 mg/dL Direct bilirubinOrdered By: Marcelino Arizmendi on 10-22-2023 Bilirubin.direct [Mass/Vol] 0.19 mg/dL 0.00-0.30 [facility] Laboratory - Chemistry and C hemistry - challengeOrdered By: Marcelino Arizmendi on 10-22-2023 ALP [Catalytic activity/Vol] 65 U/L 45-117 [facility] ALT [Catalytic activity/Vol] 16 U/L 16-61 [facility] Cholesterol in HDL [Mass/Vol] 47 mg/dL >40 [facility] Comment on above: The drugs N-Acetylcy steine and Metamizole may falsely depress this assay. Reference Range HDL <40 mg/dL Low HDL Cholesterol HDL >or= 60 mg/dL High HDL Cholesterol Cholesterol in LDL [Mass/Vol] 105 mg/dL 0-130 [facility] Globulin (S) [Mass/Vol] 3.3 g/dL 2.2-4.2 [facility] No Panel InformationOrdered By: Marcelino Arizmendi on 10-22-2023 VLDL Cholesterol 19 mg/dL 5-40 [facility] Thin prep Papanicolaou smear with manual screeningOrdered By: Marcelino Arizmendi on 10-22-2023 Thin prep Papanicolaou smear with manual screening 3.5 g/dL 3.2-5.0 [facility] Thin prep Papanicolaou smear with manual screening 18 U/L 15-37 [facility] Lab Report: Lipid Profileon 06-19-2017 Cholesterol 79 mg/dL Invalid Interpretation Code 200 [facility] Work Phone: [phone] HDL Cholesterol 54 mg/dL Invalid Interpretation Code [facility] Work Phone: [phone] LDL Cholesterol 17 mg/dL Invalid Interpretation Code 0-130 [employer] Work Phone: [phone] Triglyceride 40 mg/dL Invalid Interpretation Code [facility] Work Phone: [phone] very low density lipoproteins 8 mg/dL Invalid Interpretation Code 5-40 [facility] Work Phone: [phone] Lab Report: Liver Profileon 06-19-2017 Alanine aminotransferase (ALT) 21 U/L Invalid Interpretation Code 12-78 [facility] Work Phone: [phone] Albumin 3.6 g/dL Invalid Interpretation Code 3.4-5.0 [facility] Work Phone: [phone] Alkaline phosphatase (ALP) 83 U/L Invalid Interpretation Code 45-117 [facility] Work Phone: [phone] Aspartate aminotransferase (AST) 25 U/L Invalid Interpretation Code 15-37 [facility] Work Phone: [phone] Bilirubin (direct) 0.30 mg/dL Invalid Interpretation Code 0.00-0.30 [facility] Work Phone: [phone] Bilirubin (total) 1.00 mg/dL Invalid Interpretation Code 0.20-1.00 [facility] Work Phone: [phone] Globulin 2.8 g/dL Invalid Interpretation Code 2.2-4.2 [facility] [employer] Work Phone: [phone] Protein 6.4 g/dL Invalid Interpretation Code 6.4-8.2 [facility] Work Phone: [phone] Office Visiton 12-19-2016 Documentation of current medications (procedure) Done Invalid Interpretation Code Friday Phone: [phone] Fall risk assessment No Invalid Interpretation Code Friday Phone: [phone] Protein mass conc Done Friday Phone: [phone] Lab Report: Lipid Profileon 12-06-2016 Cholesterol 87 mg/dL Invalid Interpretation Code 200 [employer] Work Phone: [phone] HDL Cholesterol 49 mg/dL Invalid Interpretation Code [employer] Work Phone: [phone] LDL Cholesterol 23 mg/dL Invalid Interpretation Code 0-130 Friday Phone: [phone] Triglyceride 73 mg/dL Invalid Interpretation Code Friday Phone: [phone] very low density lipoproteins 15 mg/dL Invalid Interpretation Code 5-40 Friday Phone: [phone] Lab Report: Liver Profileon 12-06-2016 Alanine aminotransferase (ALT) 20 U/L Invalid Interpretation Code 12-78 Friday Phone: [phone] Albumin 3.6 g/dL Invalid Interpretation Code 3.4-5.0 Friday Phone: [phone] Alkaline phosphatase (ALP) 77 U/L Invalid Interpretation Code 45-117 Friday Phone: [phone] ALP (Bld) [Catalytic activity/Vol] 77 U/L 45-117 Friday Phone: [phone] Aspartate aminotransferase (AST) 20 U/L Invalid Interpretation Code 15-37 Friday Phone: [phone] Bilirubin (direct) 0.24 mg/dL Invalid Interpretation Code 0.00-0.30 Friday Phone: [phone] Bilirubin (total) 0.90 mg/dL Invalid Interpretation Code 0.20-1.00 Friday Phone: [phone] Globulin 2.9 g/dL Invalid Interpretation Code 2.3-3.5 Friday Phone: [phone] Globulin (S) [Mass/Vol] 2.9 g/dL 2.3-3.5 [facility] [employer] Phone: [phone] Protein 6.5 g/dL Invalid Interpretation Code 6.4-8.2 [employer] Work Phone: [phone] Office Visiton 12-19-2015 Documentation of current medications (procedure) Done Invalid Interpretation Code [employer] Work Phone: [phone] Clinical Lists Update: 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 12-13-2015 Left ventricular Ejection fraction 30 % Invalid Interpretation Code [employer] Work Phone: [phone] Lab Report: Basic Metabolic Profile (BMP)on 06-20-2015 Anion gap 8 mmol/L Invalid Interpretation Code 5-15 [facility] Work Phone: [phone] Anion gap [Moles/Vol] 8 mmol/L 5-15 [facility] [employer] Work Phone: [phone] BUN/Creatinine Ratio 17.5 RATIO Invalid Interpretation Code 10-20 [facility] Work Phone: [phone] Calcium 8.6 mg/dL Invalid Interpretation Code 8.5-10.1 [employer] Work Phone: [phone] Chloride 106 mmol/L Invalid Interpretation Code 98-107 [employer] Work Phone: [phone] CO2 27.0 mmol/L Invalid Interpretation Code 21.0-32.0 [employer] Work Phone: [phone] CO2 (BldV) [Partial pressure] 27.0 mmol/L 21.0-32.0 [employer] Work Phone: [phone] Creatinine 0.91 mg/dL Invalid Interpretation Code 0.70-1.30 [employer] Work Phone: [phone] eGFR (non-black) 87 mL/min/{1.73_m2} Invalid Interpretation Code >60 [employer] Work Phone: [phone] eGFR (non-black) 105 mL/min/{1.73_m2} Invalid Interpretation Code >60 [employer] Work Phone: [phone] EST GFR - AA 105 mL/min >60 [employer] Work Phone: [phone] Glucose 87 mg/dL Invalid Interpretation Code 70-110 [employer] Work Phone: [phone] Glucose [Mass/Vol] 87 mg/dL Invalid Interpretation Code 70-110 [facility] Work Phone: [phone] Potassium 4.3 mmol/L Invalid Interpretation Code 3.5-5.1 [facility] Work Phone: [phone] Sodium 141 mmol/L Invalid Interpretation Code 136-145 [facility] Work Phone: [phone] Urea nitrogen 16 mg/dL Invalid Interpretation Code 7-18 [facility] Work Phone: [phone] Lab Report: CBC W/Diff, Auto matedon 06-20-2015 Absolute Neut 3.2 X10 3/UL Invalid Interpretation Code 2.0-7.7 [facility] Work Phone: [phone] Basophils/100 leukocytes 0.2 % Invalid Interpretation Code 0-1 [facility] Work Phone: [phone] Basophils/100 WBC (Bld) 0.2 % 0-1 [facility] [employer] Work Phone: [phone] Eosinophils/100 leukocytes 1.1 % Invalid Interpretation Code 0-5 [facility] Work Phone: [phone] Eosinophils/100 WBC (Bld) 1.1 % 0-5 [facility] Work Phone: [phone] Erythrocyte distribution width (RBC) [Ratio] 43.2 fL 35.1-43.9 [facility] Work Phone: [phone] Erythrocyte distribution width (RBC) [Ratio] 12.1 % 11.6-14.6 [facility] Work Phone: [phone] Erythrocytes (RBC) 4.22 10*6/uL Low 4.6-6.[address] [facility] Work Phone: [phone] Hematocrit (Bld) [Volume fraction] 41.8 % 40-54 [facility] Work Phone: [phone] Hematocrit (HCT) 41.8 % Invalid Interpretation Code 40-54 [facility] Work Phone: [phone] Hemoglobin (HGB) 14.1 g/dL Invalid Interpretation Code 13.0-16.5 [facility] Work Phone: [phone] Immature granulocytes (Bld) [#/Vol] 0.200 % 0.0-0.9 [facility] Work Phone: [phone] immature granulocytes, percentage of total cells, blood 0.200 % Invalid Interpretation Code 0.0-0.9 [facility] Work Phone: [phone] Immature granulocytes/100 WBC (Bld) 0.200 % Invalid Interpretation Code 0.0-0.9 [facility] Work Phone: [phone] Lymphocytes 0.80 X10 3/UL Low 0.83-4.51 [facility] Work Phone: [phone] Lymphocytes (Bld) [#/Vol] 0.80 X10 3/UL Low 0.83-4.51 [facility] Work Phone: [phone] Lymphocytes/100 leukocytes 18.2 % Low 19-41 [facility] Work Phone: [phone] Lymphocytes/100 WBC (Bld) 18.2 % Low 19-41 [facility] Work Phone: [phone] MCH 33.4 pg High 27.0-32.0 [facility] Work Phone: [phone] MCH (RBC) [Entitic mass] 33.4 pg High 27.0-32.0 [facility] Work Phone: [phone] MCHC 33.7 G/GL Invalid Interpretation Code 32-36 [facility] Work Phone: [phone] MCHC (RBC) [Mass/Vol] 33.7 G/GL 32-36 [facility] Work Phone: [phone] MCV 99.1 fL High 80-94 [facility] Work Phone: [phone] MCV (RBC) [Entitic vol] 99.1 fL High 80-94 [facility] Work Phone: [phone] Monocytes/100 leukocytes 8.4 % Invalid Interpretation Code 0-10 [facility] Work Phone: [phone] Monocytes/100 WBC (Bld) 8.4 % 0-10 [facility] Work Phone: [phone] neutrophil count, blood 3.2 X10 3/UL Invalid Interpretation Code 2.0-7.7 [facility] Work Phone: [phone] Neutrophils (Bld) [#/Vol] 3.2 X10 3/UL 2.0-7.7 [facility] Work Phone: [phone] Neutrophils/100 leukocytes 71.9 % High 47-70 [facility] Work Phone: [phone] Neutrophils/100 WBC (Bld) 71.9 % High 47-70 [facility] Work Phone: [phone] Platelet mean volume (Bld) [Entitic vol] 12.4 fL High 6.2-12.0 [facility] Work Phone: [phone] Platelets 112 10*3/mm3 Low 150-450 [facility] Work Phone: [phone] Platelets (Bld) [#/Vol] 112 10*3/mm3 Low 150-450 [facility] Work Phone: [phone] PMV by Macarena 12.4 fL High 6.2-12.0 [facility] Work Phone: [phone] RBC (Bld) [#/Vol] 4.22 10*6/uL Low 4.6-6.2 [facility] Work Phone: [phone] RDW SD 43.2 fL Invalid Interpretation Code 35.1-43.9 [facility] Work Phone: [phone] RDW-CA 12.1 % Invalid Interpretation Code 11.6-14.6 [facility] Work Phone: [phone] red blood cell distribution width, size density 43.2 fL Invalid Interpretation Code 35.1-43.9 [facility] Work Phone: [phone] WBC (Bld) [#/Vol] 4.4 10*3/uL 4.4-11.0 [facility] Work Phone: [phone] WBC (Leukocytes) 4.4 10*3/uL Invalid Interpretation Code 4.4-11.0 [facility] Work Phone: [phone] Office Visit: [facility] 06-20-20 15 Tobacco smoking status NHIS Tobacco smoking status NHIS Invalid Interpretation Code [facility] Work Phone: Tobacco smoking status NHIS Never smoker Friday Phone: [phone] Tobacco use CPHS Never smoker Invalid Interpretation Code Friday Phone: Replaced Document: Carrie Segundo 06-20-2015 EKG QRS axis -27 deg Invalid Interpretation Code Friday Phone: [phone] electrocardiogram interpretation Marked sinus Bradycardia -Anterior infarct -age undetermined. - Negative T-waves -Possible Anterolateral ischemia. ABNORMAL Invalid Interpretation Code Friday Phone: GE use only - for [employer] import when terms are not otherwise specified 412 ms Invalid Interpretation Code Friday Phone: [phone] Interpretation Marked sinus Bradycardia -Anterior infarct -age undetermined. - Negative T-waves -Possible Anterolateral ischemia. ABNORMAL Invalid Interpretation Code Friday Phone: [phone] P [place] 67 deg Invalid Interpretation Code Friday Phone: [phone] P wave axis, electrocardiogram 67 deg Invalid Interpretation Code Friday Phone: W[place] Interval 174 ms Invalid Interpretation Code Friday Phone: [phone] W[place] interval, electrocardiogram 174 ms Invalid Interpretation Code Friday Phone: Pulse (Heart Rate) 47 /min Invalid Interpretation Code Friday Phone: QRS axis, electrocardiogram -27 deg Invalid Interpretation Code Friday Phone: [phone] QRS Duration 96 ms Invalid Interpretation Code [facility] [facility] Work Phone: QRS duration, electrocardiogram 96 ms Invalid Interpretation Code Friday Phone: QT Interval new path ms Invalid Interpretation Code Friday Phone: QT interval, electrocardiogram new path ms Invalid Interpretation Code Friday Phone: QTc [place] 412 ms Invalid Interpretation Code Friday Phone: T [place] 90 deg Invalid Interpretation Code Friday Phone: T wave axis, electrocardiogram 90 deg Invalid Interpretation Code [facility] Work Phone: [phone] Office Visit: [facility] 06-13-20 14 cardiac risk group C Invalid Interpretation Code [facility] Work Phone: [phone] General cardiovascular disease 10Y risk [#] [place] N/A Invalid Interpretation Code [facility] Work Phone: [phone] LDL target level 100 mg/dL Invalid Interpretation Code [facility] Work Phone: [phone] Lab Report: PTon 07-20-2012 INR Coag (PPP) [Relative time] 1.2 {INR} Normal [facility] Work Phone: [phone] INR in blood by coagulation 1.2 {INR} Normal [facility] Work Phone: [phone] prothrombin time, actual/normal, ratio 14.0 SECONDS Normal 11.9-14.4 [facility] Work Phone: [phone] PTP 14.0 SECONDS Normal 11.9-14.4 [facility] Work Phone: [phone] Lab Report: UAon 07-20-2012 specific gravity, urine 1.020 Normal 1.002-1.030 [facility] Work Phone: [phone] Replaced Document: Carrie Ramirez CG Observationson 07-15-2012 Pulse (Heart Rate) 471 ms Invalid Interpretation Code [facility] Work Phone: [phone] Vital Signs Date Time Vital Sign Value Performing Clinician Dorothy lucero 02-10-2025 14:50-0400 Body temperature 98.3 [degF] Dr. Wolfgang Conde MD Work Phone: [facility] 02-10-2025 14:50-0400 Diastolic blood pressure 75 mm[Hg] Dr. Wolfgang Conde MD Work Phone: [facility] 02-10-2025 14:50-0400 Heart rate 67 /min Dr. Wolfgang Conde MD Work Phone: [facility] 02-10-2025 14:50-0400 Respiratory rate 14 /min Dr. Wolfgang Conde MD Work Phone: [facility] 02-10-2025 14:50-0400 SaO2% (BldA) [Mass fraction] 97 % Dr. Wolfgang Conde MD Work Phone: [facility] 02-10-2025 14:50-0400 Systolic blood pressure 110 mm[Hg] Dr. Wolfgang Conde MD Work Phone: [facility] 02-09-2025 08:22-0400 Body height 170.[address] Wolfgang Conde MD Work Phone: [facility] 02-09-2025 08:22-0400 Body weight 56.[address] Wolfgang Conde MD Work Phone: [facility] 02-08-2025 15:39-0400 Body mass index (BMI) [Ratio] 19.5 kg/m2 Dr. Wolfgang Conde MD Work Phone: [facility] 02-08-2025 15:01-0400 Body temperature 97.8 [degF] Dr. Wolfgang Conde MD Work Phone: [facility] 02-08-2025 15:01-0400 Diastolic blood pressure 84 mm[Hg] Dr. Wolfgang Conde MD Work Phone: [facility] 02-08-2025 15:01-0400 Heart rate 51 /min Dr. Wolfgang Conde MD Work Phone: [facility] 02-08-2025 15:01-0400 Respiratory rate 13 /min Dr. Wolfgang Conde MD Work Phone: [facility] 02-08-2025 15:01-0400 SaO2% (BldA) [Mass fraction] 100 % Dr. Wolfgang Conde MD Work Phone: [facility] 02-08-2025 15:01-0400 Systolic blood pressure 129 mm[Hg] Dr. Wolfgang Conde MD Work Phone: [facility] 02-08-2025 12:10-0400 Body mass index (BMI) [Ratio] 19.5 kg/m2 Dr. Wolfgang Conde MD Work Phone: [facility] 02-08-2025 12:10-0400 Body weight 56.[address] Wolfgang Conde MD Work Phone: [facility] 02-08-2025 11:55-0400 Body height 170.[address] Wolfgang Conde MD Work Phone: [facility] 01-23-2025 10:30-0400 Body temperature 98.2 [degF] Dr. Wolfgang Conde MD Work Phone: [facility] 01-23-2025 10:30-0400 Diastolic blood pressure 81 mm[Hg] Dr. Wolfgang Conde MD Work Phone: [facility] 01-23-2025 10:30-0400 Heart rate 76 /min Dr. Wolfgang Conde MD Work Phone: [facility] 01-23-2025 10:30-0400 Respiratory rate 16 /min Dr. Wolfgang Conde MD Work Phone: [facility] 01-23-2025 10:30-0400 SaO2% (BldA) [Mass fraction] 91 % Dr. Wolfgang Conde MD Work Phone: [facility] 01-23-2025 10:30-0400 Systolic blood pressure 123 mm[Hg] Dr. Wolfgang Conde MD Work Phone: [facility] 01-22-2025 23:50-0400 Body height 172.[address] Wolfgang Conde MD Work Phone: [facility] 01-22-2025 23:50-0400 Body mass index (BMI) [Ratio] 18.1 kg/m2 Dr. Wolfgang Conde MD Work Phone: [facility] 01-22-2025 23:50-0400 Body weight 54.[address] Wolfgang Conde MD Work Phone: [facility] 12-01-2024 14:19-0400 Body height 172.72 cm No Primary Care Physician [facility] 12-01-2024 14:17-0400 Body mass index (BMI) [Ratio] 21.1 kg/m2 No Primary Care Physician [facility] 12-01-2024 14:17-0400 Body weight 63.04 kg No Primary Care Physician [facility] 12-01-2024 14:17-0400 Diastolic blood pressure 82 mm[Hg] No Primary Care Physician [facility] 12-01-2024 14:17-0400 Heart rate 49 /min No Primary Care Physician [facility] 12-01-2024 14:17-0400 Respiratory rate 18 /min No Primary Care Physician [facility] 12-01-2024 14:17-0400 SaO2% (BldA) [Mass fraction] 98 % No Primary Care Physician [facility] 12-01-2024 14:17-0400 Systolic blood pressure 140 mm[Hg] No Primary Care Physician [facility] 11-10-2023 15:29-0400 Body height 172.72 cm No Primary Care Physician [facility] 11-10-2023 15:20-0400 Body mass index (BMI) [Ratio] 20.7 kg/m2 No Primary Care Physician [facility] 11-10-2023 15:20-0400 Body weight 61.68 kg No Primary Care Physician [facility] 11-10-2023 15:20-0400 Diastolic blood pressure 80 mm[Hg] No Primary Care Physician [facility] 11-10-2023 15:20-0400 Heart rate 64 /min No Primary Care Physician [facility] 11-10-2023 15:20-0400 Respiratory rate 16 /min No Primary Care Physician [facility] 11-10-2023 15:20-0400 Systolic blood pressure 135 mm[Hg] No Primary Care Physician [facility] 07-17-2023 13:46-0500 Body height 172.72 cm No Primary Care Physician [facility] 07-17-2023 13:46-0500 Body mass index (BMI) [Ratio] 21.2 kg/m2 No Primary Care Physician [facility] 07-17-2023 13:46-0500 Body weight 63.5 kg No Primary Care Physician [facility] 07-17-2023 13:46-0500 Diastolic blood pressure 88 mm[Hg] No Primary Care Physician [facility] 07-17-2023 13:46-0500 Heart rate 62 /min No Primary Care Physician [facility] 07-17-2023 13:46-0500 Respiratory rate 16 /min No Primary Care Physician [facility] 07-17-2023 13:46-0500 Systolic blood pressure 169 mm[Hg] No Primary Care Physician [facility] 12-19-2016 12:52-0400 BMI (Body Mass Index) 20.77 kg/m2 [facility] Work Phone: 12-19-2016 12:52-0400 Body weight 58.38 kg Saritha Ram [facility] Work Phone: 12-19-2016 12:52-0400 BP Diastolic 62 mm[Hg] Alisia Vasquez [facility] Work Phone: 12-19-2016 12:52-0400 BP Systolic 120 mm[Hg] Alisia Vasquez [facility] Work Phone: 12-19-2016 12:52-0400 Height 167.64 cm Alisia Vasquez [facility] Work Phone: 12-19-2016 12:52-0400 Pulse (Heart Rate) 58 /min Alisia Vasquez [facility] Work Phone: 12-19-2016 12:52-0400 Respiratory Rate 16 /min Alisia Vasquez [facility] Work Phone: 12-19-2016 12:52-0400 Weight 58.38 kg Alisia Vasquez [facility] Work Phone: 06-18-2016 13:02-0500 BMI (Body Mass Index) 21.14 kg/m2 MD [facility] Work Phone: 06-18-2016 13:02-0500 BP Diastolic 78 mm[Hg] Wolfgang Conde MD [facility] Work Phone: 06-18-2016 13:02-0500 BP Systolic 130 mm[Hg] Wolfgang Conde MD [facility] Work Phone: 06-18-2016 13:02-0500 BSA (Body Surface Area) 1.67 m2 Wolfgang Conde MD [facility] Work Phone: 06-18-2016 13:02-0500 Pulse (Heart Rate) 60 /min Wolfgang Conde MD [facility] Work Phone: 06-18-2016 13:02-0500 Respiratory Rate 16 /min Wolfgang Conde MD [facility] Work Phone: 06-18-2016 13:02-0500 Weight 59.42 kg Wolfgang Conde MD [facility] Work Phone: 06-20-2015 13:01-0500 Heart rate 47 /min Saritha Leanna [facility] Work Phone: 07-27-2012 14:18-0500 Body Temperature 96.9 [degF] Wolfagng Conde MD [facility] Work Phone: 07-15-2012 10:40-0500 Heart rate 471 ms Saritha Leanna [facility] Work Phone: 10-11-2011 11:14-0400 Height 167.64 cm Wolfgang Conde MD [facility] Work Phone: Encounters Encounter Date Encounter Type Care Provider Facility Start: 02-10-2025 Non-patient / Non-visit Dr. Isadora Arndt MD -[facility] Work Phone: Start: 02-09-2025 ambulatory Marcelino Arizmendi NP Facility :[facility] Start: 02-09-2025 Non-patient / Non-visit Dr. Isadora Arndt MD -[facility] Work Phone: Start: 02-08-2025 End: 02-10-2025 ambulatory No Primary Care Physician Facility:[facility] Start: 02-08-2025 End: 02-10-2025 Evaluation and management of inpatient Dr. Ajith Zimmer DO -[facility] Work Phone: Start: 02-08-2025 End: 02-10-[address] Wolfgang Conde MD Work Phone: -[facility] Start: 01-22-2025 End: 01-23-2025 Emergency department patient visit Dr. Wolfgang Conde MD Work Phone: -Emergency Department Work Phone: Start: 12-01-2024 End: 12-01-2024 ambulatory No Primary Care Physician [facility] Work Phone: Start: 12-01-2024 End: 12-01-2024 Patient encounter procedure Marcelino MARIN -[facility] Work Phone: Start: 05-10-2024 End: 05-10-2024 ambulatory No Primary Care Physician Facility:[facility] Start: 03-05-2024 End: 03-05-2024 ambulatory No Primary Care Physician Facility:[facility] Start: 11-12-2023 End: 11-12-2023 Non-patient / Non-visit No Primary Care Physician [facility] Start: 11-10-2023 End: 11-10-2023 ambulatory No Primary Care Physician [facility] Work Phone: Start: 11-10-2023 End: 11-10-2023 Patient encounter procedure No Primary Care Physician [facility] Work Phone: Start: 11-10-2023 End: 11-10-2023 Patient encounter procedure No Primary Care Physician [facility] Work Phone: Start: 10-22-2023 End: 10-22-2023 ambulatory No Primary Care Physician [facility] Work Phone: Start: 10-22-2023 End: 10-22-2023 Patient encounter procedure No Primary Care Physician [facility] Work Phone: Start: 07-17-2023 End: 07-17-2023 Patient encounter procedure No Primary Care Physician [facility] Work Phone: Procedures Date Procedure Procedure Detail Performing Clinician Start: 02-10-[address] Wolfgang Conde MD Work Phone: Start: 02-09-2025 Ultrasound of scrotu m with Doppler and color flow imaging Dr. Wolfgang Conde MD Work Phone: Start: 02-08-2025 SARS-CoV-2, Influenz a & RSV (PCR) Dr. Wolfgang Conde MD Work Phone: Start: 02-08-2025 Urnls dip stick/tabl et reagent auto microscopy Dr. Wolfgang Conde MD Work Phone: Start: 02-08-[address] Wolfgang Conde MD Work Phone: Start: 02-08-2025 CT of head without contrast Dr. Wolfgang Conde MD Work Phone: Start: 02-08-2025 Plain chest X-ray Dr. Cassie Conde MD Work Phone: Start: 01-23-2025 CT of head without contrast Dr. Wolfgang Conde MD Work Phone: Start: 01-23-2025 Methadone measuremen t, urine Dr. Wolfgang Conde MD Work Phone: Start: 01-23-2025 Urnls dip stick/tabl et reagent auto microscopy Dr. Wolfgang Conde MD Work Phone: Start: 01-23-[address] Wolfgang Conde MD Work Phone: Start: 06-12-2017 End: 06-19-2017 *Hepatic [...] 12-19-2016 End: 12-19-2016 Documentation of current medications hTaddeusken Leanna Start: 12-19-2016 End: 12-19-2016 Follow Up [...] [AGGREGATE] Gwen Rivera Start: 06-18-2016 End: 06-18-2016 MUSIC INTERN Jeimy Huang PA-C Work Phone: Start: 06-18-2016 [...] PA-C Work Phone: Start: 06-20-2015 End: 06-20-2015 MUSIC INTERN Jeimy Huang PA-C Work Phone: Start: 06-20-2015 [...] PA-C Work Phone: Start: 06-20-2015 End: 06-20-2015 MUSIC INTERN Jeimy Huang PA-C Work Phone: Start: 06-20-2015 [...] months Gwen Rivera Start: 12-20-2014 End: 12-20-2014 [facility] Wolfgang Conde MD Start: 11-21-2014 End: 06-13-2015 Follow [...] PA-C Work Phone: Start: 06-13-2014 End: 06-13-2014 MUSIC INTERN Jeimy Huang PA-C Work Phone: Start: 06-13-2014 [...] PA-C Work Phone: Start: 06-13-2014 End: 06-13-2014 MUSIC INTERN Jeimy Huang PA-C Work Phone: Start: 06-13-2014 End: 06-13-2014 Electrocardiogram, complete Jeimy Huang PA-C Work Phone: Start: 06-13-2014 End: 06-13-2014 Follow Up Appt 6 months Jeimy Huang PA-C Work Phone: Start: 06-13-2014 End: 06-13-2014 Lipid panel [AGGREGATE] Jeimy Huang PA-C Work Phone: Start: 05-18-2014 End: 05-31-2014 Follow Up Appt 3 months Ulysses S Elton, M D Start: 05-18-2014 End: 05-31-2014 Pacer Clinic Wolfgang [...] 12-14-2013 End: 12-14-2013 KONRAD Conde MD Start: 12-12-2013 End: 12-14-2013 *Hepatic [...] PA-C Work Phone: Start: 06-15-2013 End: 06-15-2013 MUSIC INTERN Jeimy Huang PA-C Work Phone: Start: 06-15-2013 End: 06-15-2013 Follow Up Appt 6 months Jeimy Huang PA-C Work Phone: Start: 06-15-2013 End: 06-16-2013 Lipid 1996 panel - Serum or Plasma Jeimy Huang PA-C Work Phone: Start: 06-15-2013 End: 06-16-2013 *Hepatic Function Panel Jeimy Huang PA-C Work Phone: Start: 06-15-2013 End: 06-15-2013 MUSIC INTERN Jeimy Huang PA-C Work Phone: Start: 06-15-2013 End: 06-15-2013 Follow Up Appt 6 months Jeimy Huang PA-C Work Phone: Start: 06-15-2013 End: 06-16-2013 Lipid panel [AGGREGATE] Jeimy Huang PA-C Work Phone: Start: 05-14-2013 End: 06-03-2013 Follow Up Appt 3 months Gwen Rivera Start: 05-14-2013 End: 06-03-2013 Pacer Clinic Wolfgang Conde MD Start: 05-14-2013 End: 05-14-2013 Prgrmg eval implantable in prsn dual lead jazz Conde MD Start: 05-14-2013 End: 06-03-2013 Follow Up Appt 3 months Gwen Rivera Start: 05-14-2013 End: 05-14-2013 Icd device progr eval, dual Wolfgang Conde MD Start: 05-14-2013 End: 06-03-2013 Pacer Clinic Wolfgang Conde MD Start: 02-10-2013 End: 06-03-2013 Follow Up Appt 3 months Gwen Rivera Start: 02-10-2013 End: 06-03-2013 Pacer Clinic Wolfgang Conde MD Start: 02-10-2013 End: 02-10-2013 Prgrmg eval implantable in prsn dual lead jazz Conde MD Start: 02-10-2013 End: 06-03-2013 Follow [...] 12-17-2012 End: 12-17-2012 KONRAD Conde MD Start: 11-11-2012 End: 06-16-2013 *Hepatic [...] angioplasty PERCUTANEOUS TRANSLUMINAL CORONARY ANGIOPLASTY, HX OF Thaddeusken Ram Start: 07-28-2009 History of placement of stent for coronary artery disease History of coronary artery stent placement Marcelino Arizmendi [employer]-C Comment on above: [id number] and Mid LAD w/ Veriflex BMS 3.0 x 20 mm and Micro Map And Chart Mounter BMS 2.5 x 18 mm 07/28/09 Plan of Treatment Date Care Activity Detail Author Start: 02-10-2025 Patient discharge [facility] Start: 02-08-2025 Following clinical pathway protocol [facility] Start: 02-08-2025 Patient referral to dietitian [facility] Start: 02-08-2025 Ambulation without limitation [facility] Start: 02-08-2025 Assessment of risk of venous thromboembolism [facility] Start: 02-08-2025 Insertion of catheter into peripheral vein [facility] Start: 02-08-2025 Measuring intake and output [facility] Start: 02-08-2025 Oxygen therapy [facility] Start: 02-08-2025 Providing care according to standard [facility] Start: 02-08-2025 Referral to occupational therapist [facility] Start: 02-08-2025 Referral to service [facility] Start: 02-08-2025 [facility] Start: 02-08-2025 Verification routine [facility] Start: 02-08-2025 Hospital admission, emergency, from emergency room, medical nature [facility] Start: 02-08-2025 Admission procedure [facility] Start: 01-23-2025 [facility] Start: 01-23-2025 Suicide precautions [facility] Start: 11-10-2023 Patient referral [facility] Work Phone: Start: 07-17-2017 End: 07-17-2017 Appointment Appointment [facility] Work Phone: Start: 07-02-2017 End: 07-02-2017 Appointment Appointment [facility] Work Phone: Start: 06-12-2017 End: 06-19-2017 *Hepatic Function Panel *Hepatic Function Panel [facility] Work Phone: Start: 06-12-2017 End: 06-19-2017 Lipid panel [AGGREGATE] *Lipid Profile CC PCP [facility] Work Phone: Start: 06-12-2017 End: 12-20-2016 *Hepatic Function Panel *Hepatic Function Panel [facility] Work Phone: Start: 06-12-2017 End: 12-20-2016 Lipid panel [AGGREGATE] *Lipid Profile CC PCP [facility] Work Phone: Start: 04-04-2017 End: 04-05-2017 Follow Up Appt 3 months Follow Up Appt 3 months [facility] Work Phone: Start: 04-04-2017 End: 04-05-2017 Pac[facility] Clinic [facility] Work Phone: Start: 04-04-2017 End: 04-04-2017 Appointment Appointment [facility] Work Phone: Start: 04-04-2017 End: 04-05-2017 Follow Up Appt 3 months Follow Up Appt 3 months [facility] Work Phone: Start: 04-04-2017 End: 04-05-2017 Pacer Clinic [facility] Work Phone: Start: 12-27-2016 End: 12-27-2016 Follow Up Appt 3 months Follow Up Appt 3 months [facility] Work Phone: Start: 12-27-2016 End: 12-27-2016 [facility] Clinic [facility] Work Phone: Start: 12-27-2016 End: 12-27-2016 Appointment Appointment [facility] Work Phone: Start: 12-27-2016 End: 12-27-2016 Appointment Appointment [facility] Work Phone: Start: 12-27-2016 End: 12-27-2016 Follow Up Appt 3 months Follow Up Appt 3 months [facility] Work Phone: Start: 12-27-2016 End: 12-27-2016 Pacer Clinic [facility] Work Phone: Start: 12-19-2016 End: 12-19-2016 Follow Up Appt 6 months Follow Up Appt 6 months [facility] Work Phone: Start: 12-19-2016 End: 12-19-2016 MMM MMM [facility] Work Phone: Start: 12-19-2016 End: 12-19-2016 Appointment Appointment [facility] Work Phone: Start: 12-19-2016 End: 12-19-2016 Appointment Appointment [facility] Work Phone: Start: 12-19-2016 End: 12-19-2016 Follow Up Appt 6 months Follow Up Appt 6 months [facility] Work Phone: Start: 12-19-2016 End: 12-19-2016 MMM MMM [facility] Work Phone: Start: 09-16-2016 End: 12-19-2016 Follow Up Appt 3 months Follow Up Appt 3 months [facility] Work Phone: Start: 09-16-2016 End: 12-19-2016 Pacer Clinic [facility] Work Phone: Start: 09-16-2016 End: 12-19-2016 Follow Up Appt 3 months Follow Up Appt 3 months [facility] Work Phone: Start: 09-16-2016 End: 12-19-2016 Pacer Clinic [facility] Work Phone: Start: 08-19-2016 End: 12-10-2016 *Hepatic Function Panel *Hepatic Function Panel [facility] Work Phone: Start: 08-19-2016 End: 12-10-2016 Lipid panel [AGGREGATE] *Lipid Profile CC PCP [facility] Work Phone: Start: 08-19-2016 End: 12-10-2016 *Hepatic Function Panel *Hepatic Function Panel [facility] Work Phone: Start: 08-19-2016 End: 12-10-2016 Lipid panel [AGGREGATE] *Lipid Profile CC PCP [facility] Work Phone: Start: 06-18-2016 End: 06-18-2016 MUSIC INTERN MUSIC INTERN [facility] Work Phone: Start: 06-18-2016 End: 12-19-2016 Follow Up Appt 3 months Follow Up Appt 3 months [facility] Work Phone: Start: 06-18-2016 End: 06-18-2016 Follow Up Appt 6 months Follow Up Appt 6 months [facility] Work Phone: Start: 06-18-2016 End: 12-19-2016 Pacer Clinic [facility] Work Phone: Start: 06-18-2016 End: 06-18-2016 MUSIC INTERN MUSIC INTERN [facility] Work Phone: Start: 06-18-2016 End: 12-19-2016 Follow Up Appt 3 months Follow Up Appt 3 months [facility] Work Phone: Start: 06-18-2016 End: 06-18-2016 Follow Up Appt 6 months Follow Up Appt 6 months [facility] Work Phone: Start: 06-18-2016 End: 12-19-2016 Pacer Clinic [facility] Work Phone: Start: 03-19-2016 End: 06-11-2016 Follow Up Appt 3 months Follow Up Appt 3 months [facility] Work Phone: Start: 03-19-2016 End: 06-11-2016 Pacer Clinic [facility] Work Phone: Start: 03-19-2016 End: 06-11-2016 Follow Up Appt 3 months Follow Up Appt 3 months [facility] Work Phone: Start: 03-19-2016 End: 06-11-2016 Pacer Clinic [facility] Work Phone: Start: 02-06-2016 End: 02-21-2016 *Hepatic Function Panel *Hepatic Function Panel [facility] Work Phone: Start: 02-06-2016 End: 02-21-2016 Lipid panel [AGGREGATE] *Lipid Profile CC PCP [facility] Work Phone: Start: 02-06-2016 End: 02-21-2016 *Hepatic Function Panel *Hepatic Function Panel [facility] Work Phone: Start: 02-06-2016 End: 02-21-2016 Lipid panel [AGGREGATE] *Lipid Profile CC PCP [facility] Work Phone: Start: 12-19-2015 End: 06-11-2016 Follow Up Appt 3 months Follow Up Appt 3 months [facility] Work Phone: Start: 12-19-2015 End: 12-19-2015 Follow Up Appt 6 months Follow Up Appt 6 months [facility] Work Phone: Start: 12-19-2015 End: 12-19-2015 MMM MMM [facility] Work Phone: Start: 12-19-2015 End: 06-11-2016 Pacer Clinic [facility] Work Phone: Start: 12-19-2015 End: [...] 3 months Follow Up Appt 3 months [facility] Work Phone: Start: 09-04-2015 End: 06-11-2016 Pacer Clinic [facility] Work Phone: Start: 09-04-2015 End: 06-11-2016 Follow Up Appt 3 months Follow Up Appt 3 months [facility] Work Phone: Start: 09-04-2015 End: 06-11-2016 Pacer Clinic [facility] Work Phone: Start: 07-14-2015 End: 08-07-2015 *Hepatic Function Panel *Hepatic Function Panel [facility] Work Phone: Start: 07-14-2015 End: 08-07-2015 Lipid panel [AGGREGATE] *Lipid Profile CC PCP [facility] Work Phone: Start: 07-14-2015 End: 08-07-2015 *Hepatic Function Panel *Hepatic Function Panel [facility] Work Phone: Start: 07-14-2015 End: 08-07-2015 Lipid panel [AGGREGATE] *Lipid Profile CC PCP [facility] Work Phone: Start: 06-20-2015 End: 06-20-2015 *BMP *BMP [facility] Work Phone: Start: 06-20-2015 End: 06-20-2015 *CBC with Differential *CBC with Differential [facility] Work Phone: Start: 06-20-2015 End: 06-20-2015 MUSIC INTERN MUSIC INTERN [facility] Work Phone: Start: 06-20-2015 End: 06-20-2015 Ecg routine ecg w/least 12 lds w/i&r EKG (In office) [facility] Work Phone: Start: 06-20-2015 End: 06-20-2015 Follow Up Appt 6 months Follow Up Appt 6 months [facility] Work Phone: Start: 06-20-2015 End: 06-20-2015 Nuclear stress test -Lexiscan Nuclear stress test -Lexiscan [facility] Work Phone: Start: 06-20-2015 End: 06-20-2015 *BMP *BMP [facility] Work Phone: Start: 06-20-2015 End: 06-20-2015 *CBC with Differential *CBC with Differential [facility] Work Phone: Start: 06-20-2015 End: 06-20-2015 MUSIC INTERN MUSIC INTERN [facility] Work Phone: Start: 06-20-2015 End: 06-20-2015 Electrocardiogram, complete EKG (In office) [facility] Work Phone: Start: 06-20-2015 End: 06-20-2015 Follow Up Appt 6 months Follow Up Appt 6 months [facility] Work Phone: Start: 06-20-2015 End: 06-20-2015 Nuclear stress test -Lexiscan Nuclear stress test -Lexiscan [facility] Work Phone: Start: 05-30-2015 End: 06-13-2015 Follow Up Appt 3 months Follow Up Appt 3 months [facility] Work Phone: Start: 05-30-2015 End: 06-13-2015 Pacer Clinic [facility] Work Phone: Start: 05-30-2015 End: 06-13-2015 Follow Up Appt 3 months Follow Up Appt 3 months [facility] Work Phone: Start: 05-30-2015 End: 06-13-2015 Pacer Clinic [facility] Work Phone: Start: 02-28-2015 End: 06-13-2015 Follow Up Appt 3 months Follow Up Appt 3 months [facility] Work Phone: Start: 02-28-2015 End: 06-13-2015 Pacer Clinic [facility] Work Phone: Start: 02-28-2015 End: 06-13-2015 Follow Up Appt 3 months Follow Up Appt 3 months [facility] Work Phone: Start: 02-28-2015 End: 06-13-2015 Pacer Clinic [facility] Work Phone: Start: 01-10-2015 End: 01-10-2015 *Hepatic Function Panel *Hepatic Function Panel [facility] Work Phone: Start: 01-10-2015 End: 01-10-2015 Lipid panel [AGGREGATE] *Lipid Profile CC PCP [facility] Work Phone: Start: 01-10-2015 End: 01-10-2015 *Hepatic Function Panel *Hepatic Function Panel [facility] Work Phone: Start: 01-10-2015 End: 01-10-2015 Lipid panel [AGGREGATE] *Lipid Profile CC PCP [facility] Work Phone: Start: 12-20-2014 End: 12-20-2014 Follow Up Appt 6 months Follow Up Appt 6 months [facility] Work Phone: Start: 12-20-2014 End: 12-20-2014 MMM MMM [facility] Work Phone: Start: 12-20-2014 End: 12-20-2014 Follow Up Appt 6 months Follow Up Appt 6 months [facility] Work Phone: Start: 12-20-2014 End: 12-20-2014 MMM MMM [facility] Work Phone: Start: 11-21-2014 End: 06-13-2015 Follow Up Appt 3 months Follow Up Appt 3 months [facility] Work Phone: Start: 11-21-2014 End: 06-13-2015 Pacer Clinic [facility] Clinic [facility] Work Phone: Start: 11-21-2014 End: 06-13-2015 Follow Up Appt 3 months Follow Up Appt 3 months [facility] Work Phone: Start: 11-21-2014 End: 06-13-2015 Pacer Clinic [facility] Work Phone: Start: 08-19-2014 End: 06-13-2015 Follow Up Appt 3 months Follow Up Appt 3 months [facility] Work Phone: Start: 08-19-2014 End: 06-13-2015 Pacer Clinic [facility] Work Phone: Start: 08-19-2014 End: 06-13-2015 Follow Up Appt 3 months Follow Up Appt 3 months [facility] Work Phone: Start: 08-19-2014 End: 06-13-2015 Pacer Clinic [facility] Work Phone: Start: 06-13-2014 End: 06-13-2014 *Hepatic Function Panel *Hepatic Function Panel [facility] Work Phone: Start: 06-13-2014 End: 06-13-2014 MUSIC INTERN MUSIC INTERN [facility] Work Phone: Start: 06-13-2014 End: 06-13-2014 Ecg routine ecg w/least 12 lds w/i&r EKG (In office) [facility] Work Phone: Start: 06-13-2014 End: 06-13-2014 Follow Up Appt 6 months Follow Up Appt 6 months [facility] Work Phone: Start: 06-13-2014 End: 06-13-2014 Lipid panel [AGGREGATE] *Lipid Profile CC PCP [facility] Work Phone: Start: 06-13-2014 End: 06-13-2014 *Hepatic Function Panel *Hepatic Function Panel [facility] Work Phone: Start: 06-13-2014 End: 06-13-2014 [facility] Work Phone: Start: 06-13-2014 End: 06-13-2014 Electrocardiogram, complete EKG (In office) [facility] Work Phone: Start: 06-13-2014 End: 06-13-2014 Follow Up Appt 6 months Follow Up Appt 6 months [facility] Work Phone: Start: 06-13-2014 End: 06-13-2014 Lipid panel [AGGREGATE] *Lipid Profile CC PCP [facility] Work Phone: Start: 05-18-2014 End: 05-31-2014 Follow Up Appt 3 months Follow Up Appt 3 months [facility] Work Phone: Start: 05-18-2014 End: 05-31-2014 Pacer Clinic Pacer Clinic [facility] Work Phone: Start: 05-18-2014 End: 05-31-2014 Follow Up Appt 3 months Follow Up Appt 3 months [facility] Work Phone: Start: 05-18-2014 End: 05-31-2014 Pacer Clinic [facility] Work Phone: Start: 02-14-2014 End: [...] 02-14-2014 End: 05-31-2014 Pacer Clinic [facility] Work Phone: Start: 12-14-2013 End: 12-14-2013 Follow Up Appt 6 months Follow Up Appt 6 months [facility] Work Phone: Start: 12-14-2013 End: 12-14-2013 MMM MMM [facility] Work Phone: Start: 12-14-2013 End: 12-14-2013 Follow Up Appt 6 months Follow Up Appt 6 months [facility] Work Phone: Start: 12-14-2013 End: 12-14-2013 MMM MMM [facility] Work Phone: Start: 12-12-2013 End: 12-14-2013 *Hepatic Function Panel *Hepatic Function Panel [facility] Work Phone: Start: 12-12-2013 End: 12-14-2013 Lipid panel [AGGREGATE] *Lipid Profile CC PCP [facility] Work Phone: Start: 12-12-2013 End: 12-14-2013 *Hepatic Function Panel *Hepatic Function Panel [facility] Work Phone: Start: 12-12-2013 End: 12-14-2013 Lipid panel [AGGREGATE] *Lipid Profile CC PCP [facility] Work Phone: Start: 11-16-2013 End: 05-31-2014 Follow Up Appt 3 months Follow Up Appt 3 months [facility] Work Phone: Start: 11-16-2013 End: 05-31-2014 Pacer Clinic [facility] Work Phone: Start: 11-16-2013 End: 05-31-2014 Follow Up Appt 3 months Follow Up Appt 3 months [facility] Work Phone: Start: 11-16-2013 End: 05-31-2014 Pacer Clinic [facility] Work Phone: Start: 08-16-2013 End: 12-14-2013 Follow Up Appt 3 months Follow Up Appt 3 months [facility] Work Phone: Start: 08-16-2013 End: 12-14-2013 Pacer Clinic [facility] Work Phone: Start: 08-16-2013 End: 12-14-2013 Follow Up Appt 3 months Follow Up Appt 3 months [facility] Work Phone: Start: 08-16-2013 End: 12-14-2013 Pacer Clinic [facility] Work Phone: Start: 06-15-2013 End: 06-16-2013 *Hepatic Function Panel *Hepatic Function Panel [facility] Work Phone: Start: 06-15-2013 End: 06-15-2013 MUSIC INTERN MUSIC INTERN [facility] Work Phone: Start: 06-15-2013 End: 06-15-2013 Follow Up Appt 6 months Follow Up Appt 6 months [facility] Work Phone: Start: 06-15-2013 End: 06-16-2013 Lipid panel [AGGREGATE] *Lipid Profile CC PCP [facility] Work Phone: Start: 06-15-2013 End: 06-16-2013 *Hepatic Function Panel *Hepatic Function Panel [facility] Work Phone: Start: 06-15-2013 End: 06-15-2013 MUSIC INTERN MUSIC INTERN [facility] Work Phone: Start: 06-15-2013 End: 06-15-2013 Follow Up Appt 6 months Follow Up Appt 6 months [facility] Work Phone: Start: 06-15-2013 End: 06-16-2013 Lipid panel [AGGREGATE] *Lipid Profile CC PCP [facility] Work Phone: Start: 05-14-2013 End: 06-03-2013 Follow Up Appt 3 months Follow Up Appt 3 months [facility] Work Phone: Start: 05-14-2013 End: 06-03-2013 Pacer Clinic [facility] Work Phone: Start: 05-14-2013 End: 06-03-2013 Follow Up Appt 3 months Follow Up Appt 3 months [facility] Work Phone: Start: 05-14-2013 End: 06-03-2013 Pacer Clinic [facility] Clinic [facility] Work Phone: Start: 02-10-2013 End: 06-03-2013 Follow Up Appt 3 months Follow Up Appt 3 months [facility] Work Phone: Start: 02-10-2013 End: 06-03-2013 Pacer Clinic Pac[facility] Clinic [facility] Work Phone: Start: 02-10-2013 End: 06-03-2013 Follow Up Appt 3 months Follow Up Appt 3 months [facility] Work Phone: Start: 02-10-2013 End: 06-03-2013 Pacer Clinic [facility] Clinic [facility] Work Phone: Start: 12-17-2012 End: 12-17-2012 Follow Up Appt 6 months Follow Up Appt 6 months [facility] Work Phone: Start: 12-17-2012 End: 12-17-2012 MMM MMM [facility] Work Phone: Start: 12-17-2012 End: 12-17-2012 Follow Up Appt 6 months Follow Up Appt 6 months [facility] Work Phone: Start: 12-17-2012 End: 12-17-2012 MMM MMM [facility] Work Phone: Start: 11-11-2012 End: 06-16-2013 *Hepatic Function Panel *Hepatic Function Panel [facility] Work Phone: Start: 11-11-2012 End: 06-16-2013 Lipid panel [AGGREGATE] *Lipid Profile [facility] Work Phone: Start: 11-11-2012 End: 06-16-2013 *Hepatic Function Panel *Hepatic Function Panel [facility] Work Phone: Start: 11-11-2012 End: 06-16-2013 Lipid panel [AGGREGATE] *Lipid Profile [facility] Work Phone: Start: 11-10-2012 End: 06-03-2013 Follow Up Appt 3 months Follow Up Appt 3 months [facility] Work Phone: Start: 11-10-2012 End: 06-03-2013 Pacer Clinic [facility] Work Phone: Start: 11-10-2012 End: 06-03-2013 Follow Up Appt 3 months Follow Up Appt 3 months [facility] Work Phone: Start: 11-10-2012 End: 06-03-2013 Pacer Clinic [facility] Work Phone: Start: 07-15-2012 End: 07-15-2012 Ecg routine ecg w/least 12 lds w/i&r EKG (In office) [facility] Work Phone: Start: 07-15-2012 End: 07-15-2012 Electrocardiogram, complete EKG (In office) [facility] Work Phone: Start: 06-18-2012 End: 06-18-2012 Device Interrogation Device Interrogation [facility] Work Phone: Start: 06-18-2012 End: 06-18-2012 Follow Up Appt 6 months Follow Up Appt 6 months [facility] Work Phone: Start: 06-18-2012 End: 06-18-2012 Device Interrogation Device Interrogation [facility] Work Phone: Start: 06-18-2012 End: 06-18-2012 Follow Up Appt 6 months Follow Up Appt 6 months [facility] Work Phone: Start: 06-03-2012 End: 06-03-2012 *Hepatic Function Panel *Hepatic Function Panel [facility] Work Phone: Start: 06-03-2012 End: 06-03-2012 Echocardiography Echocardiogram (complete) [facility] Work Phone: Start: 06-03-2012 End: 06-03-2012 Follow Up Appt 6 months Follow Up Appt 6 months [facility] Work Phone: Start: 06-03-2012 End: 06-10-2012 Lipid panel [AGGREGATE] *Lipid Profile [facility] Work Phone: Start: 06-03-2012 End: 06-03-2012 *Hepatic Function Panel *Hepatic Function Panel [facility] Work Phone: Start: 06-03-2012 End: 06-03-2012 Echocardiography Echocardiogram (complete) [facility] Work Phone: Start: 06-03-2012 End: 06-03-2012 Follow Up Appt 6 months Follow Up Appt 6 months [facility] Work Phone: Start: 06-03-2012 End: 06-10-2012 Lipid panel [AGGREGATE] *Lipid Profile [facility] Work Phone: Start: 10-11-2011 End: 06-03-2012 *Hepatic Function Panel *Hepatic Function Panel [facility] Work Phone: Start: 10-11-2011 End: 10-11-2011 Follow Up Appt 6 months Follow Up Appt 6 months [facility] Work Phone: Start: 10-11-2011 End: 06-03-2012 Lipid panel [AGGREGATE] *Lipid Profile [facility] Work Phone: Start: 10-11-2011 End: 06-03-2012 *Hepatic Function Panel *Hepatic Function Panel [facility] Work Phone: Start: 10-11-2011 End: 10-11-2011 Follow Up Appt 6 months Follow Up Appt 6 months [facility] Work Phone: Start: 10-11-2011 End: 06-03-2012 Lipid panel [AGGREGATE] *Lipid Profile [facility] Work Phone: Patient Education [facility] Work Phone: Patient referral [facility] Work Phone: Immunizations Immunization Date Immunization Notes Care Provider Fa meng 10-12-2020 Covid (Pfizer) No Primary Ca re Physician [facility] 09-21-2020 Covid (Pfizer) No Primary Ca re Physician [facility] Payers Date Payer Category Payer Self-pay [id number] 2012 Medicare [id number] Medicare [id number] Unknown [id number] 2.16.8 [id number] Unknown [id number] 2.16.8 40.1.365154.3.579.2.462 Unknown [id number] 2.16.8 40.1.148880.3.579.2.462 Unknown [id number] 2.16.8 40.1.213465.3.579.2.462 Unknown [id number] 2.16.8 40.1.529744.3.579.2.462 Unknown [id number] 2.16.8 40.1.010032.3.579.2.462 Unknown [id number] 2.16.8 40.1.141449.3.579.2.462 Unknown [id number] 2.16.8 40.1.825456.3.579.2.462 Unknown [id number] 2.16.8 40.1.417725.3.579.2.462 Unknown [id number] 2.16.8 40.1.983288.3.579.2.462 Unknown [id number] 2.16.8 40.1.789657.3.579.2.462 Unknown [id number] 2.16.8 40.1.331181.3.579.2.462 Unknown [id number] 2.16.8 40.1.654751.3.579.2.462 Unknown [id number] 2.16.8 [id number] Social History Date Type Detail Facility Start: 07-17-2023 Tobacco smoking stat us RIIS Unknown if ever smoked [facility] Start: 1940 Sex Assigned At Male [facility] Start: 07-17-2023 End: 02-08-2025 Tobacco smoking status NHIS Never smoked tobacco (finding) [facility] Goals Date Patient Goal Desired Activity /State Functional Status Date Assessment Result Facility 02-10-2025 Functional status Ambulates [facility] Work Phone: Mental Status Date Assessment Result Facility 02-10-2025 Cognitive function Voice/Name;Touch/Shaki ng [facility] Work Phone: 02-08-2025 Cognitive function Level Of Cons ciousness Follows Commands;Drowsy [facility] Work Phone: Clinical Notes 07-28-2009 to 02-10-2025 Note Date & Type Note Facility 02-10-2025 Discharge summary [facility] 02-10-2025 Discharge summary [facility] 02-10-2025 Hospital Discharg e instructions Additional Instructions Date of Discharge: 02/10/25 [facility] Work Phone: 02-10-2025 Discharge summary Note Date/Time February 10, 2025 3:37pm [facility] Medical Records Department [address] [place] [address] Discharge Summary 02/10/25 1105 MR#: [id number] Acct: [id number] Name: SOPHIA CORTES Rep #:[id number] : 1940 84 From: Isadora Arndt MD PCP: Care Physician,No Primary Status :ADM MARCELA Location: [place] [address] Providers Date of Admission: 02/08/25 Date of Discharge: 02/10/25 Primary Care Physician: No Primary Care Phys Reason For Visit: ADULT FAILURE TO THRIVE Diagnosis Discharge Diagnosis (1) Adult failure to thrive: Status: Acute Code(s): R62.7 - Adult failure to thrive (2) Dementia: Status: Acute Code(s): F03.90 - Unspecified dementia, unspecified severity, without behavioral disturbance, psychotic disturbance, mood disturbance, and anxiety (3) Weakness: Status: Acute Code(s): R53.1 - Weakness (4) Memory deficit: Status: Chronic Code(s): R41.3 - Other amnesia Plan #Debility and adult failure to thrive in the setting of dementia * PT/OT on board. BMI is only 19.6. * Nutrition also consulted. * fall precautions. * on donepezil and memantine * * #Scrotal edema: scrotum edematous. NOn tender and nonerythematous. Get scrotal ultrasound #Depression and anxiety: was recently seen on 01/23/2025 in ED for suicidal ideation. On risperdal. CUrrently not suicidal. #Sinus bradycardia: HR in the 40s-50s. On coreg, with dose reduced to 3.125mg bid. Will monitor #History of CAD s/p stent: had stents in 2009. Last echo in 2019 showed EF of 40% with stage I diastolic dysfunction. On aspirin and statin. Statin dose reduced to 40mg daily in light of advanced age. #HFrEF with ICD: has known EF of 40%. On coreg. Lisinopril held #Hypertension: on coreg. Lisinopril on hold. #Pancytopenia * wbc is 3.8 and Hb is 10.6; platelets are 102. Will monitor closely for now. Has been like this for the whole of January this year. * #History of paroxysmal afib: coreg dose decreased due to bradycardia. DVT prophylaxis: lovenox COde status: DNRCCA no intubation Medications at Discharge Home Medications aspirin 81 mg tablet,delayed release (Adult Aspirin Regimen) 81 mg PO QDAY 07/23/17 atorvastatin 80 mg tablet 80 mg PO QDAY #90 tabs 10/28/19 lisinopril 10 mg tablet 10 mg PO QDAY #90 tabs 09/23/24 acetaminophen 325 mg capsule 650 mg PO Q6H PRN pain 02/08/25 donepezil 10 mg tablet 10 mg PO DAILY 02/08/25 magnesium hydroxide 400 mg/5 mL oral suspension (Dulcolax (magnesium hydroxide))30 ml PO BID PRN constipation 02/08/25 memantine 5 mg tablet 5 mg PO BID 02/08/25 risperidone 1 mg tablet 1 mg PO BID 02/08/25 carvedilol 3.125 mg tablet 3.125 mg PO BIDCM #60 tabs 02/10/25 Hospital Course Operations None Procedures None Summary of Care Provided Minutes Spent on Discharge: 45 Hospital Course: Patient is a 84 y/o male with a PMH as outlined who was admitted via the ED on 02/10/2025 with a complaitn of weakness and adult failure to thrive. HE lived at home alone and had been seen in the ED on 01/23/2025 for suicidal ideation and admitted to a psych facility. He did have a history of underlying dementia and his sister was his medical power of commonwealth attorney. He came back to the ED after beingbrought in to the ED. His sister said he had not been eating and drinking well, and his sister was concerned he had not been taking care of himself well at home. In the ED, he was noted to be bradycardic with HR in the low 50s. Labs were significant for Cr of 1.64 with a baseline of 1.3. CT of the brain showed no acute intracranial pathology. Labs were also unremarkable. HE was admitted and managed for debility and weakness with failure to thrive. PT/OT was consulted. He worked with PT.OT. His carvedilol dose was reduced to 3.125mg bid from 12.5mg bid due to bradycardia. He was noted to have an enlarged scrotum, sohe had a scrotal USG which showed a large right hydrocele with scrotal skin thickening and small left hydrocele. He was therefore referred to urology on outpatient basis. He was discharged to SNF on 02/10/2025. He is to follow up withhis PCP and urologist within 1-2 weeks. Patient seen and examined. HE had no active complaints and had an uneventful night. Labs and vitals reviewed. Home meds reviewed and reconciled. Physical Exam Const alert, oriented x3 and no apparent distress Constitutional Narrative: flat affect General Appearance: cooperative and comfortable HEENT normocephalic, head/scalp atraumatic, hearing grossly normal bilaterally, nasal mucous membranes and turbinates normal, moist oral mucous membranes and oropharynx normal Mouth: oral and palatal mucosa normal Eyes PERRL, EOMs intact bilaterally and conjunctivae normal Neck full ROM, no lymphadenopathy and supple Lymph Lymphatic: no lymphadenopathy noted Chest inspection of chest normal Resp normal respiratory effort, normal air movement, no use of accessory muscles and clear to auscultation bilaterally Cardio regular rate, regular rhythm, S1 normal heart sound, S2 normal heart sound, no murmurs and peripheral pulses 2+ throughout GI normal to inspection, nondistended, normoactive bowel sounds, soft to palpation,non-tender and non-distended GI Narrative: has an enlarged scrotum, which is non-tender and nonerythematous. Back/Spine normal ROM Extremity normal to inspection, full ROM, normal capillary refill, no clubbing, cyanosis or edema, no calf tenderness and no pedal edema General Extremity: no tenderness to palpation of joints or extremities Skin no rashes or lesions noted General Skin Exam: no breakdown Neuro CN's II-XII intact bilaterally, moves all extremities and no focal motor deficits Sensorium / Orientation: awake and alert Motor Exam: general weakness Psych Psych Narrative: Flat affect. Appearance: appropriate Medical Records Data Medical Nutrition Assessment Dietitian: Malnutrition Criteria Met Start: 02/09/25 08:40 Freq: Status: Active Protocol: Document 02/09/25 08:40 RMA (Rec: 02/09/25 08:40 RMA [id number]) Nutrition Malnutrition Evidence of Yes Malnutrition Exists Malnutrition (severe Chronic ): Evidenced By Suboptimal Energy Intake (Moderate),Weight Loss (Severe ),Physical Changes (Moderate) Clinical Problem Chronic Disease or Condition Related Malnutrition Etiology severe protein-calorie malnutrition in the context of chronic disease and debility related to inadequate energy/oral intake Signs/Symptoms as evidenced by PO meeting less than 75% estimated nutrition needs x past 1 month, ~8% unintentional weight loss x past 1-2 months, BMI 19.6 and moderate muscle wasting/fat depletion in face, clavicle, arms and legs. Status Active Problem Recommendation Dietitian Will liberalize diet to Regular in view of signs/ Recommendations/ symptoms of malnutrition. Changes Will add 120mL ensure plus HP 4 times per day w/ medpass. Additional ONS as needed once PO better established with meals. Weight / BMI Weight Weight: 125 lb 0.034 oz Body Mass Index (BMI) 19.5 ABG / Lab / Microbiology Data 02/10/25 05:28 02/10/25 05:28 Laboratory: Laboratory Results - last 24 hr 02/10/25 05:28: WBC 4.3 L, RBC 3.18 L, Hgb 10.2 L, Hct 29.3 L, MCV 92.1, MCH 32.1 H, MCHC 34.8, RDW Std Deviation 42.1, RDW Coeff of Neva 12.6, Plt Count 107 L, MPV 11.6, Immature Gran % (Auto) 0.700, Neut % (Auto) 66.9, Lymph % (Auto) 20.9, [place] % (Auto) 10.1 H, Eos % (Auto) 0.9, Baso % (Auto) 0.5, Absolute Neuts (auto) 2.8, Absolute Lymphs (auto) 0.89, Nucleated RBC % 0, Sodium 138, Potassium 3.5, Chloride 106, Carbon Dioxide 21.5, Anion Gap 11, BUN 31 H, Creatinine 1.18, Estim Creat Clear Calc 38.71 L, Est GFR (MDRD) Non-Af 62, BUN/Creatinine Ratio 26.4 H, Glucose 99, Calcium 8.6 Microbiology: Microbiology 02/08/25 12:50 Mucosa - Nose SARS-CoV-2, Influenza & RSV (PCR) - Final Radiography Diagnostic Testing: Radiology Impression Testicular Ultrasound 02/09/25 09:25 IMPRESSION: Large right hydrocele with scrotal skin thickening as described. Small left hydrocele. Reading Location: [id number] D/C Instructions Discharge Activity: Return to Normal Activity Call your doctor if you observe: Fever of 101 or Higher, Shortness of breath, Dizziness, Swelling in the ankles and Chest pain DC O2, CPAP, BIPAP Needs Home O2 Discharge instructions: No DC home with Oxygen: No Meaningful Use Info Meaningful Use Meaningful Use Diagnoses (Choose all that apply): None applicable Discharge Plan Admission Admit Date/Time: 02/08/25 13:45 Primary Reason for Your Visit: debility and weakness, failure to thrive. Attending Provider: Isadora Arndt Primary Care Provider: Care Physician,Cristina Primary Consulting Providers: Ajith Zimmer Instructions Patient Instructions: ED Hydrocele Non-Communicating Type, ED Weakness Uncertain Cause Discharge Orders/Prescriptions Prescriptions: New carvedilol 3.125 mg Tablet 3.125 mg PO BIDCM Qty: 60 2RF Continued aspirin [Adult Aspirin Regimen] 81 mg tablet,delayed release (DR/EC) 81 mg PO QDAY atorvastatin 80 mg tablet 80 mg PO QDAY Qty: 90 3RF magnesium hydroxide [Dulcolax (magnesium hydroxide)] 400 mg/5 mL suspension 30 ml PO BID PRN (Reason: constipation) acetaminophen 325 mg capsule 650 mg PO Q6H PRN (Reason: pain) donepezil 10 mg tablet 10 mg PO DAILY risperidone 1 mg tablet 1 mg PO BID memantine 5 mg tablet 5 mg PO BID lisinopril 10 mg tablet 10 mg PO QDAY Qty: 90 3RF Discontinued carvedilol 12.5 mg tablet 12.5 mg PO BID Qty: 180 3RF Referrals / Follow Up: Lukasz Gan MD [Med Staff - Active Staff] - Within 1 Month (see to establish PCP care) Chester Cool MD [Med Staff - Active Staff] - Within 1 Month (see to establish care for hydrocele) Care Physician,No Primary [Primary Care Provider] - Disposition Disposition (needs filled in before D/C Order can be placed): Custodial Facility Charges/Coding Visit Charges Inpatient E&M: 86021 Disch Hosp >30min 02/10/25 1610 <Electronically signed by Isadora Arndt MD> Cosigner Signature (if applicable): CC: Dr. Isadora Arndt MD; No Primary Care Physician~ Signed [facility] Work Phone: 1(481) 197-862907-31-2025 [facility] Medical Records Department [address] [place] [address] Discharge Summary 02/10/25 1105 MR#: [id number] Acct: [id number] Name: SOPHIA CORTES Rep #: [id number] : 1940 84 From: Isadora Arndt MD PCP: Care Physician,No Primary Status:ADM MARCELA Location: [place] [address] Providers Date of Admission: 02/08/25 Date of Discharge: 02/10/25 Primary Care Physician: No Primary Care Phys Reason For Visit: ADULT FAILURE TO THRIVE Diagnosis Discharge Diagnosis (1) Adult failure to thrive: Status: Acute Code(s): R62.7 - Adult failure to thrive (2) Dementia: Status: Acute Code(s): F03.90 - Unspecified dementia, unspecified severity, without behavioral disturbance, psychotic disturbance, mood disturbance, and anxiety (3) Weakness: Status: Acute Code(s): R53.1 - Weakness (4) Memory deficit: Status: Chronic Code(s): R41.3 - Other amnesia Plan #Debility and adult failure to thrive in the setting of dementia * PT/OT on board. BMI is only 19.6. * Nutrition also consulted. * fall precautions. * on donepezil and memantine * * #Scrotal edema: scrotum edematous. NOn tender and nonerythematous. Get scrotal ultrasound #Depression and anxiety: was recently seen on 01/23/2025 in ED for suicidal ideation. On risperdal. CUrrently not suicidal. #Sinus bradycardia: HR in the 40s-50s. On coreg, with dose reduced to 3.125mg bid. Will monitor #History of CAD s/p stent: had stents in 2009. Last echo in 2019 showed EF of 40% with stage I diastolic dysfunction. On aspirin and statin. Statin dose reduced to 40mg daily in light of advanced age. #HFrEF with ICD: has known EF of 40%. On coreg. Lisinopril held #Hypertension: on coreg. Lisinopril on hold. #Pancytopenia * wbc is 3.8 and Hb is 10.6; platelets are 102. Will monitor closely for now. Has been like this for the whole of January this year. * #History of paroxysmal afib: coreg dose decreased due to bradycardia. DVT prophylaxis: lovenox COde status: DNRCCA no intubation Medications at Discharge Home Medications aspirin 81 mg tablet,delayed release (Adult Aspirin Regimen) 81 mg PO QDAY 07/23/17 atorvastatin 80 mg tablet 80 mg PO QDAY #90 tabs 10/28/19 lisinopril 10 mg tablet 10 mg PO QDAY #90 tabs 09/23/24 acetaminophen 325 mg capsule 650 mg PO Q6H PRN pain 02/08/25 donepezil 10 mg tablet 10 mg PO DAILY 02/08/25 magnesium hydroxide 400 mg/5 mL oral suspension (Dulcolax (magnesium hydroxide)) 30 ml PO BID PRN constipation 02/08/25 memantine 5 mg tablet 5 mg PO BID 02/08/25 risperidone 1 mg tablet 1 mg PO BID 02/08/25 carvedilol 3.125 mg tablet 3.125 mg PO BIDCM #60 tabs 02/10/25 Hospital Course Operations None Procedures None Summary of Care Provided Minutes Spent on Discharge: 45 Hospital Course: Patient is a 84 y/o male with a PMH as outlined who was admitted via the ED on 02/10/2025 with a complaitn of weakness and adult failure to thrive. HE lived at home alone and had been seen in the ED on 01/23/2025 for suicidal ideation and admitted to a psych facility. He did have a history of underlying dementia and his sister was his medical power of commonwealth attorney. He came back to the ED after being brought in to the ED. His sister said he had not been eating and drinking well, and his sister was concerned he had not been taking care of himself well at home. In the ED, he was noted to be bradycardic with HR in the low 50s. Labs were significant for Cr of 1.64 with a baseline of 1.3. CT of the brain showed no acute intracranial pathology. Labs were also unremarkable. HE was admitted and managed for debility and weakness with failure to thrive. PT/OT was consulted. He worked with PT.OT. His carvedilol dose was reduced to 3.125mg bid from 12.5mg bid due to bradycardia. He was noted to have an enlarged scrotum, so he had a scrotal USG which showed a large right hydrocele with scrotal skin thickening and small left hydrocele. He was therefore referred to urology on outpatient basis. He was discharged to SNF on 02/10/2025. He is to follow up with his PCP and urologist within 1-2 weeks. Patient seen and examined. HE had no active complaints and had an uneventful night. Labs and vitals reviewed. Home meds reviewed and reconciled. Physical Exam Const alert, oriented x3 and no apparent distress Constitutional Narrative: flat affect General Appearance: cooperative and comfortable HEENT normocephalic, head/scalp atraumatic, hearing grossly normal bilaterally, nasal mucous membranes and turbinates normal, moist oral mucous membranes and oropharynx normal Mouth: oral and palatal mucosa normal Eyes PERRL, EOMs intact bilaterally and conjunctivae normal Neck full ROM, no lymphadenopathy and supple Lymph Lymphatic: no lymphadenopathy noted Chest inspection of chest normal Resp normal respiratory effort, nor (more content not included)...[facility]07-30-2025 Progress note Author Isadora Arndt [facility] Note Date/Time February 09, 2025 4:26 pm [facility] Medical Records Department [address] [place] [address] Progress Note 02/09/25 0936 MR#: [id number] Acct: [id number] Name: SOPHIA CORTES Rep #:[id number] : 1940 84 From: Isadora Arndt MD PCP: Care Physician,No Primary Status :ADM [facility] Location: [place] [address] Subjective Subjective Patient seen and examined. HE was brought in o.a of failure to thrive, weakness and debility. He had no active complaints. Review of systems is otherwise negative. Objective Data Objective Data Vital Signs: Vital Signs Temp Pulse Resp BP Pulse Ox O2 Del Method 98 F 51 L 16 150/79 H 95 Room Air 02/09/25 08:06 02/09/25 08:06 02/09/25 08:06 02/09/25 08:06 02/09/25 08:06 02/09/25 08:06 Oxygen Delivery Method Room Air Weight: 125 lb 0.034 oz Body Mass Index (BMI) 19.5 Intake & Output: Intake and Output for Last 24 Hours 02/07/25 02/08/25 02/09/25 23:59 23:59 23:59 Intake Total 1315.0 / 1435.0 120 / 120 Output Total 0 / 0 Balance 1315.0 / 1435.0 120 / 120 Medical Nutrition Assessment Dietitian: Malnutrition Criteria Met Start: 02/09/25 08:40 Freq: Status: Active Protocol: Document 02/09/25 08:40 RMA (Rec: 02/09/25 08:40 RMA [id number]) Nutrition Malnutrition Evidence of Yes Malnutrition Exists Malnutrition (severe Chronic ): Evidenced By Suboptimal Energy Intake (Moderate),Weight Loss (Severe ),Physical Changes (Moderate) Clinical Problem Chronic Disease or Condition Related Malnutrition Etiology severe protein-calorie malnutrition in the context of chronic disease and debility related to inadequate energy/oral intake Signs/Symptoms as evidenced by PO meeting less than 75% estimated nutrition needs x past 1 month, ~8% unintentional weight loss x past 1-2 months, BMI 19.6 and moderate muscle wasting/fat depletion in face, clavicle, arms and legs. Status Active Problem Recommendation Dietitian Will liberalize diet to Regular in view of signs/ Recommendations/ symptoms of malnutrition. Changes Will add 120mL ensure plus HP 4 times per day w/ medpass. Additional ONS as needed once PO better established with meals. Lab / Micro Data 02/09/25 05:53 02/09/25 05:53 Labs: Laboratory Results - last 24 hr 02/08/25 12:22: WBC 5.4, RBC 3.81 L, Hgb 12.1 L, Hct 35.5 L, MCV 93.2, MCH 31.8,MCHC 34.1, RDW Std Deviation 43.7, RDW Coeff of Neva 12.8, Plt Count 121 L, MPV 11.4, Immature Gran % (Auto) 0.400, Neut % (Auto) 74.4 H, Lymph % (Auto) 13.6 L,[place] % (Auto) 10.7 H, Eos % (Auto) 0.7, Baso % (Auto) 0.2, Absolute Neuts (auto)4.0, Absolute Lymphs (auto) 0.74 L, Nucleated RBC % 0, Sodium 137, Potassium 3.7, Chloride 102, Carbon Dioxide 21.7, Anion Gap 14, BUN 39 H, Creatinine 1.64 H, Estim Creat Clear Calc 27.90 L, Est GFR (MDRD) Non-Af 42 L, BUN/Creatinine Ratio 23.5 H, Glucose 132 H, Calcium 9.2, Total Bilirubin 1.16, AST 19, ALT 9, Alkaline Phosphatase 91, Total Protein 6.7, Albumin 3.9, Globulin 2.8, Albumin/Globulin Ratio 1.4 02/08/25 13:40: Urine Color Yellow, Urine Clarity Clear, Urine pH 5.0, Ur Specific Seymour 1.025, Urine Protein 30 H, Urine Glucose (UA) Normal, Urine Ketones 5 H, Urine Occult Blood 10 H, Urine Nitrite Negative, Urine Bilirubin Negative, Urine Urobilinogen 1 H, Ur Leukocyte Esterase Negative, Urine RBC 0 SEEN, Urine WBC 0 SEEN, Ur Squamous Epith Cells 0-5 SEEN, Urine Bacteria 0 SEEN,Urine Mucus 0 SEEN 02/09/25 05:53: WBC 3.8 L, RBC 3.33 L, Hgb 10.6 L, Hct 30.8 L, MCV 92.5, MCH 31.8, MCHC 34.4, RDW Std Deviation 41.6, RDW Coeff of Neva 12.6, Plt Count 102 L,MPV 11.4, Sodium 139, Potassium 3.5, Chloride 107, Carbon Dioxide 20.2 L, Anion Gap 12, BUN 31 H, Creatinine 1.08, Estim Creat Clear Calc 42.29 L, Est GFR (MDRD) Non-Af 69, BUN/Creatinine Ratio 28.7 H, Glucose 88, Calcium 8.4 Micro: Microbiology 02/08/25 12:50 Mucosa - Nose SARS-CoV-2, Influenza & RSV (PCR) - Final Radiography Diagnostic Testing: Radiology Impression Brain CT 02/08/25 12:10 IMPRESSION: No acute intracranial pathology. Reading [facility]-Ray 02/08/25 12:10 IMPRESSION: No acute cardiopulmonary process. Reading Location: [facility] Physical Exam Const alert, oriented x3 and no apparent distress Constitutional Narrative: flat affect General Appearance: cooperative HEENT normocephalic, head/scalp atraumatic, moist oral mucous membranes and oropharynxnormal Eyes PERRL and EOMs intact bilaterally Neck no lymphadenopathy and supple Lymph Lymphatic: no lymphadenopathy noted Resp normal respiratory effort, normal air movement and clear to auscultation bilaterally Cardio regular rate, regular rhythm, S1 normal heart sound, S2 normal heart sound and no murmurs GI normal to inspection, nondistended, normoactive bowel sounds, soft to palpation and non-tender GI Narrative: has an enlarged scrotum, which is non-tender and nonerythematous. Extremity normal capillary refill, no clubbing, cyanosis or edema and no calf tenderness General Extremity: no tenderness to palpation of joints or extremities Skin General Skin Exam: no breakdown Neuro CN's II-XII intact bilaterally and no focal motor deficits Motor Exam: strength 5/5 throughout and general weakness Psych thought process normal and cooperative Appearance: appropriate Assessment & Plan Assessment/Plan (1) Adult failure to thrive: (2) Dementia: (3) Weakness: (4) Memory deficit: PLAN: Plan #Debility and adult failure to thrive in the setting of dementia * PT/OT on board. BMI is only 19.6. * Nutrition also consulted. * fall precautions. * on donepezil and memantine * * #Scrotal edema: scrotum edematous. NOn tender and nonerythematous. Get scrotal ultrasound #Depression and anxiety: was recently seen on 01/23/2025 in ED for suicidal ideation. On risperdal. CUrrently not suicidal. #Sinus bradycardia: HR in the 40s-50s. On coreg, with dose reduced to 3.125mg bid. Will monitor #History of CAD s/p stent: had stents in 2009. Last echo in 2019 showed EF of 40% with stage I diastolic dysfunction. On aspirin and statin. Statin dose reduced to 40mg daily in light of advanced age. #HFrEF with ICD: has known EF of 40%. On coreg. Lisinopril held #Hypertension: on coreg. Lisinopril on hold. #Pancytopenia * wbc is 3.8 and Hb is 10.6; platelets are 102. Will monitor closely for now. Has been like this for the whole of January this year. * #History of paroxysmal afib: coreg dose decreased due to bradycardia. DVT prophylaxis: lovenox COde status: DNRCCA no intubation Charges/Coding Visit Charges Inpatient E&M: 47601 Subs Hosp L2 02/09/25 1431 <Electronically signed by Isadora Arndt MD> Isadora Arndt MD Cosigner Signature (if applicable): CC: ~ Signed ADDENDUM by Dr. Isadora Arndt MD on 02/09/25 at 1626 Addendum Scrotal ultrasound showed large right hydrocele which is loculated with overlying scrotal skin thickening measuring 7 mm and a small left hydrocele. Will refer to follow-up with urology on outpatient basis. 02/09/25 1626 <Electronically signed by Isadora arteaga MD> Date _ Isadora Arndt MD Cosigner Signature (if applicable): Date cc: ~* Signed [facility] Work Phone: 1(372) 424-353007-30-2025 Progress note [facility] Medical Records Department [address] [place] [address] Progress Note 02/09/25 0936 MR#: [id number] Acct: [id number] Name: SOPHIA CORTES Rep #:[id number] : 1940 84 From: Isadora Arndt MD PCP: Care Physician,No Primary Status :ADM MARCELA Location: [place] [address] Subjective Subjective Patient seen and examined. HE was brought in o.a of failure to thrive, weakness and debility. He had no active complaints. Review of systems is otherwise negative. Objective Data Objective Data Vital Signs: Vital Signs Temp Pulse Resp BP Pulse Ox O2 Del Method 98 F 51 L 16 150/79 H 95 Room Air 02/09/25 08:06 02/09/25 08:06 02/09/25 08:06 02/09/25 08:06 02/09/25 08:06 02/09/25 08:06 Oxygen Delivery Method Room Air Weight: 125 lb 0.034 oz Body Mass Index (BMI) 19.5 Intake & Output: Intake and Output for Last 24 Hours 02/07/25 02/08/25 02/09/25 23:59 23:59 23:59 Intake Total 1315.0 / 1435.0 120 / 120 Output Total 0 / 0 Balance 1315.0 / 1435.0 120 / 120 Medical Nutrition Assessment Dietitian: Malnutrition Criteria Met Start: 02/09/25 08:40 Freq: Status: Active Protocol: Document 02/09/25 08:40 RMA (Rec: 02/09/25 08:40 RMA [id number]) Nutrition Malnutrition Evidence of Yes Malnutrition Exists Malnutrition (severe Chronic ): Evidenced By Suboptimal Energy Intake (Moderate),Weight Loss (Severe ),Physical Changes (Moderate) Clinical Problem Chronic Disease or Condition Related Malnutrition Etiology severe protein-calorie malnutrition in the context of chronic disease and debility related to inadequate energy/oral intake Signs/Symptoms as evidenced by PO meeting less than 75% estimated nutrition needs x past 1 month, ~8% unintentional weight loss x past 1-2 months, BMI 19.6 and moderate muscle wasting/fat depletion in face, clavicle, arms and legs. Status Active Problem Recommendation Dietitian Will liberalize diet to Regular in view of signs/ Recommendations/ symptoms of malnutrition. Changes Will add 120mL ensure plus HP 4 times per day w/ medpass. Additional ONS as needed once PO better established with meals. Lab / Micro Data 02/09/25 05:53 02/09/25 05:53 Labs: Laboratory Results - last 24 hr 02/08/25 12:22: WBC 5.4, RBC 3.81 L, Hgb 12.1 L, Hct 35.5 L, MCV 93.2, MCH 31.8,MCHC 34.1, RDW Std Deviation 43.7, RDW Coeff of Neva 12.8, Plt Count 121 L, MPV 11.4, Immature Gran % (Auto) 0.400, Neut% (Auto) 74.4 H, Lymph % (Auto) 13.6 L,[place] % (Auto) 10.7 H, Eos % (Auto) 0.7, Baso % (Auto) 0.2, Absolute Neuts (auto)4.0, Absolute Lymphs (auto) 0.74 L, Nucleated RBC % 0, Sodium 137, Potassium 3.7, Chloride 102, Carbon Dioxide 21.7, Anion Gap 14, BUN 39 H, Creatinine 1.64 H, Estim Creat Clear Calc 27.90 L, Est GFR (MDRD) Non-Af 42 L, BUN/Creatinine Ratio 23.5 H, Glucose 132 H, Calcium 9.2, Total Bilirubin 1.16, AST 19, ALT 9, Alkaline Phosphatase 91, Total Protein 6.7, Albumin 3.9, Globulin 2.8, Albumin/Globulin Ratio 1.4 02/08/25 13:40: Urine Color Yellow, Urine Clarity Clear, Urine pH 5.0, Ur Specific [place] 1.025, Urine Protein 30 H, Urine Glucose (UA) Normal, Urine Ketones 5 H, Urine Occult Blood 10 H, Urine Nitrite Negative, Urine Bilirubin Negative, Urine Urobilinogen 1 H, Ur Leukocyte Esterase Negative, Urine RBC 0 SEEN, Urine WBC 0 SEEN, Ur Squamous Epith Cells 0-5 SEEN, Urine Bacteria 0 SEEN,Urine Mucus 0 SEEN 02/09/25 05:53: WBC 3.8 L, RBC 3.33 L, Hgb 10.6 L, Hct 30.8 L, MCV 92.5, MCH 31.8, MCHC 34.4, RDW Std Deviation 41.6, RDW Coeff of Neva 12.6, Plt Count 102 L,MPV 11.4, Sodium 139, Potassium 3.5, Chloride 107, Carbon Dioxide 20.2 L, Anion Gap 12, BUN 31 H, Creatinine 1.08, Estim Creat Clear Calc 42.29 L, Est GFR (MDRD) Non-Af 69, BUN/Creatinine Ratio 28.7 H, Glucose 88, Calcium 8.4 Micro: Microbiology 02/08/25 12:50 Mucosa - Nose SARS-CoV-2, Influenza & RSV (PCR) - Final Radiography Diagnostic Testing: Radiology Impression Brain CT 02/08/25 12:10 IMPRESSION: No acute intracranial pathology. Reading Location: [facility] Chest X-Ray 02/08/25 12:10 IMPRESSION: No acute cardiopulmonary process. Reading [facility] Physical Exam Const alert, oriented x3 and no apparent distress Constitutional Narrative: flat affect General Appearance: cooperative HEENT normocephalic, head/scalp atraumatic, moist oral mucous membranes and oropharynxnormal Eyes PERRL and EOMs intact bilaterally Neck no lymphadenopathy and supple Lymph Lymphatic: no lymphadenopathy noted Resp normal respiratory effort, normal air movement and clear to auscultation bilaterally Cardio regular rate, regular rhythm, S1 normal heart sound, S2 normal heart sound and no murmurs GI normal to inspection, nondistended, normoactive bowel sounds, soft to palpation and non-tender GI Narrative: has an enlarged scrotum, which is non-tender and nonerythematous. Extremity normal capillary refill, no clubbing, cyanosis or edema and no calf tenderness General Extremity: no tenderness to palpation of joints or extremities Skin General Skin Exam: no breakdown Neuro CN's II-XII intact bilaterally and no focal motor deficits Motor Exam: strength 5/5 throughout and general weakness Psych thought process normal and cooperative Appearance: appropriate Assessment & Plan Assessment/Plan (1) Adult failure to thrive: (2) Dementia: (3) Weakness: (4) Memory deficit: PLAN: Plan #Debility and adult failure to thrive in the setting of dementia * PT/OT on board. BMI is only 19.6. * Nutrition also consulted. * fall precautions. * on donepezil and memantine * * #Scrotal edema: scrotum edematous. NOn tender and nonerythematous. Get scrotal ultrasound #Depression and anxiety: was recently seen on 01/23/2025 in ED for suicidal ideation. On risperdal. CUrrently not suicidal. #Sinus bradycardia: HR in the 40s-50s. On coreg, with dose reduced to 3.125mg bid. Will monitor #History of CAD s/p stent: had stents in 2009. Last echo in 2019 showed EF of 40% with stage I diastolic dysfunction. On aspirin and statin. Statin dose reduced to 40mg daily in light of advanced age. #HFrEF with ICD: has known EF of 40%. On coreg. Lisinopril held #Hypertension: on coreg. Lisinopril on hold. #Pancytopenia * wbc is 3.8 and Hb is 10.6; platelets are 102. Will monitor closely for now. Has been like this for the whole of January this year. * #History of paroxysmal afib: coreg dose decreased due to bradycardia. DVT prophylaxis: lovenox COde status: DNRCCA no intubation Charges/Coding Visit Charges Inpatient E&M: 29427 Subs Hosp L2 02/09/25 1431 Isadora Arndt MD Cosigner Signature (if applicable): CC: ~ Signed ADDENDUM by Dr. Isadora Arndt MD on 02/09/25 at 1626 Addendum Scrotal ultrasound showed large right hydrocele which is loculated with overlying scrotal skin thickening measuring 7 mm and a small left hydrocele. Will refer to follow-up with urology on outpatientbasis. 02/09/25 1626 m MD> Date _ Isadora Arndt MD Cosigner Signature (if applicable): Date cc: ~* Signed [facility]07-30-2025 Radiology Diagnostic study note [facility] Imaging Services [address] [place], [place] [address] Testicular with Arterial Flow MR#: [id number] Acct: [id number] Name: SOPHIA CORTSE Rep #: [id number] : 1940 M 84 From: Tony Albarado MD PCP: Care Physician,No Primary Status: ADM MARCELA Study:Testicular with Arterial Flow Date of E xam: 02/09/25 Exam# [id number] Ordering Dr: Greta Arndt MD PROCEDURE: TESTICULAR WITH ARTERIAL FLOW 02/09/2025 REASON FOR EXAM: ENLARGED SCROTUM TECHNIQUE: TESTICULAR WITH ARTERIAL FLOW COMPARISON: None FINDINGS: RIGHT testicle: 3.3 cm x 2.8 cm x 1.6 cm Right epididymis: 1.6 cm x 1.2 cm x 0.5 cm. LEFT testicle: 4.1 cm x 2.9 cm x 2.5 cm Left epididymis: 1.3 cm x 1.3 cm x 0.8 cm. Other findings: Is a large right hydrocele. This is loculated. The overlying scrotal skin is thickened measuring 7 mm. Small left hydrocele. US/Testicular with Arterial Flow IMPRESSION: Large right hydrocele with scrotal skin thickening as described. Small left hydrocele. Reading Location: [id number] CC: Dr. Isadora Arndt MD; No Primary Care Physician ~ Family Readiness Support Assistant: Signed [facility]07-29-2025 History and physical note Author Ajith Zimmer [facility] Note Date/Time February 08, 2025 3:36 pm [facility] Medical Records Department [address] [place] [address] H&P Exam - Hospitalist 02/08/25 1345 MR#: [id number] Acct: [id number] Name: SOPHIA CORTES Rep #:[id number] : 1940 84 From: Ajith pineda DO PCP: Care Physician,No Primary Status :ADM MARCELA Location: [facility] LV430-6 HPI - General General Date of Admission: 02/08/25 Date of Service: 02/08/25 Chief Complaint: Failure to thrive HPI Narrative SOPHIA CORTES, is a 84 M who presented to [facility] ED on 02/08/2025 with adult failure to thrive. Patient lives at home alone. He was recently seen in the ED here on 01/23 for suicidal ideation and was admitted to apsychiatric facility for this. Has history of dementia and sister is medical power of commonwealth attorney. Medical history otherwise significant for CAD with stenting,HFrEF with ischemic cardiomyopathy s/p ICD placement, NSVT and paroxysmal atrialflutter. He presented to the ED today with his sister. She noted that he has not been eating and drinking normally recently, has been more confused than his normal and she is very concerned about him being able to care for himself at home. In the ED he had sinus bradycardia to the low 50s but was otherwise normotensive and stable on room air. CBC fairly benign. BMP with creatinine 1.64 (baseline appears to be around 1.3), BUN 39, otherwise unremarkable. UA was benign. CT brain unremarkable. Given need for placement, hospitalist was contacted for admission. I saw the patient at bedside in the ED, sister was present. Patient was laying back in bed and making appropriate eye contact. Hewas alert and oriented to person and place but not time and had difficulty answering any other questions for me. He denied any pain or discomfort anywhere. No other acute concerns currently. Will be admitted for further management. 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) LV (left ventricular) mural thrombus Atherosclerosis of douglas coronary 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 (07/28/09) Ischemic cardiomyopathy HLD (hyperlipidemia) Bradycardia Home Medications ?Medication ?Instructions ?Recorded ?Last Taken ?Type aspirin 81 mg tablet,delayed 81 mg PO QDAY 07/23/17 Un known History release (Adult Aspirin Regimen) atorvastatin 80 mg tablet 80 mg PO QDAY #90 tabs 10/27 Unknown Rx carvedilol 12.5 mg tablet 12.5 mg PO BID #180 tabs Unknown Rx lisinopril 10 mg tablet 10 mg PO QDAY #90 tabs 09/23 Unknown Rx acetaminophen 325 mg capsule 650 mg PO Q6H PRN pain Unknown History donepezil 10 mg tablet 10 mg PO DAILY 02/08/25 Unkn own History magnesium hydroxide 400 mg/5 mL 30 ml PO BID PRN const ipation 02/08/25 Unknown History oral suspension (Dulcolax (magnesium hydroxide)) memantine 5 mg tablet 5 mg PO BID 02/08/25 Unknown History risperidone 1 mg tablet 1 mg PO BID 02/08/25 Unknown History Allergy/AdvReac Type Severity Reaction Status Date / Time No Known Allergies Allergy Verified 02/08/25 11:55 Family History Mother CAD (coronary artery disease) Myocardial infarction Aunt CAD (coronary artery disease) Myocardial infarction Uncle CAD (coronary artery disease) Myocardial infarction Surgical History Presence of automatic implantable cardioverter-defibrillator (07/23/12) History of coronary artery stent placement (07/28/09) Social History Smoking Status: Never smoker alcohol intake: never substance use type: does not use caffeine: Yes Type: coffee what type of physical activity do you participate in: walking frequency: daily duration: 60-90 minutes/day seatbelt use: always do you feel safe at home: Yes ROS Review of Systems ROS Unobtainable: due to mental status Constitutional Constitutional: Reports fatigue; Denies chills or fever(s) Cardiovascular Cardiovascular: Denies chest pain Respiratory/Chest Respiratory/Chest: Denies shortness of breath at rest Gastrointestinal Gastrointestinal: Denies abdominal pain Vital Signs Vital Signs Vital Signs: 02/08/25 11:55 02/08/25 12:08 Temperature 96.9 F L Temperature Source Temporal Pulse Rate 53 L Respiratory Rate 14 Respiratory Effort Normal Non-Labored Respiratory Pattern Normal Blood Pressure 97/65 Blood Pressure Mean 75 Pulse Ox 98 Oxygen Delivery Method Room Air Weight Weight: 56.8 kg Body Mass Index (BMI) 19.5 Physical Exam Const alert and no apparent distress Constitutional Narrative: Elderly male, thin and somewhat cachectic appearing, fatigued appearing, alert and oriented to person and place but not time, otherwise laying back comfortablyin bed and in no acute distress. General Appearance: cooperative and comfortable HEENT normocephalic, head/scalp atraumatic, hearing grossly normal bilaterally and nasal mucous membranes and turbinates normal HEENT Narrative: Dry mucous membranes. Eyes PERRL, EOMs intact bilaterally and conjunctivae normal Neck full ROM Chest inspection of chest normal Resp normal respiratory effort, normal air movement, no use of accessory muscles and clear to auscultation bilaterally Cardio no murmurs and peripheral pulses 2+ throughout Cardio Narrative: Bradycardic, regular rhythm. GI normal to inspection, nondistended, normoactive bowel sounds, soft to palpation,non-tender and non-distended Back/Spine normal ROM Extremity normal to inspection and no pedal edema Psych Psych Narrative: Flat affect. Results Lab / Micro Data 02/08/25 12:22 02/08/25 12:22 Labs: Laboratory Results - last 24 hr 02/08/25 12:22: WBC 5.4, RBC 3.81 L, Hgb 12.1 L, Hct 35.5 L, MCV 93.2, MCH 31.8,MCHC 34.1, RDW Std Deviation 43.7, RDW Coeff of Neva 12.8, Plt Count 121 L, MPV 11.4, Immature Gran % (Auto) 0.400, Neut % (Auto) 74.4 H, Lymph % (Auto) 13.6 L,[place] % (Auto) 10.7 H, Eos % (Auto) 0.7, Baso % (Auto) 0.2, Absolute Neuts (auto)4.0, Absolute Lymphs (auto) 0.74 L, Nucleated RBC % 0, Sodium 137, Potassium 3.7, Chloride 102, Carbon Dioxide 21.7, Anion Gap 14, BUN 39 H, Creatinine 1.64 H, Estim Creat Clear Calc 27.90 L, Est GFR (MDRD) Non-Af 42 L, BUN/Creatinine Ratio 23.5 H, Glucose 132 H, Calcium 9.2, Total Bilirubin 1.16, AST 19, ALT 9, Alkaline Phosphatase 91, Total Protein 6.7, Albumin 3.9, Globulin 2.8, Albumin/Globulin Ratio 1.4 Imaging Radiology Impression Brain CT 02/08/25 12:10 IMPRESSION: No acute intracranial pathology. Reading Location: [facility] Chest X-Ray 02/08/25 12:10 IMPRESSION: No acute cardiopulmonary process. Reading [facility] Assessment & Plan Assessment/Plan (1) Adult failure to thrive: (2) Dementia: (3) Weakness: PLAN: Plan Patient is an 84-year-old male who presented to [facility] ED on02/08/2025 with adult failure to thrive. 1. Adult failure to thrive in setting of dementia ? [facility]OT/case management consulted. Nutrition consulted given BMI 19 and concern for malnutrition. Patient alert and oriented x [address] but not time in the ED and had difficulty answering other questions appropriately. Lives at home alone. Suspect he will need either SNF or memory unit placement on discharge. Continue home donepezil and memantine. 2. Depression/anxiety with recent suicidal ideation ? Recent ED visit on 01/23 for suicidal ideation. He apparently put a gun to hishead in front of neighbors and said he wanted to "end it all". Required inpatient psychiatric hospitalization at [facility] and was apparently started on Risperdal 1 mg twice daily at that time with only some improvement per family. Will continue home Risperdal. 3. Mild creatinine elevation ? Creatinine 1.64, BUN 39 on admit. Baseline creatinine appears to be around 1.3. Suspect mild dehydration secondary to poor p.o. intake at home. Will give1 L of fluids over several hours on admit. Follow-up a.m. BMP and monitor urineoutput. 4. Sinus bradycardia ? Sinus bradycardia to the low 50s noted in the ED. Remains normotensive. Presume secondary to home medications of Coreg and donepezil. Will reduce dose of Coreg to only 3.125 mg twice daily. Continue home donepezil. Blood pressure 5. History of CAD with stenting, chronic HFrEF with ischemic cardiomyopathy s/pICD placement, hypertension, hyperlipidemia, NSVT, reported history of paroxysmal atrial flutter ? History of anterior wall [place] in 2009 requiring stenting. Had resultant ischemic cardiomyopathy with ICD placement in 2012. Last echo in 2019 showed EF40%, stage I diastolic function, regional wall motion abnormalities noted that were stable from previous. Patient is not on a blood thinner; unclear regardinghistory of atrial flutter. Decreased Coreg dosing as above and will hold home lisinopril in setting of mild creatinine elevation as above. Is on bbjrunsezvuc20 mg, will reduce to 40 mg given age greater than 75. Continue home aspirin. DVT prophylaxis: Lovenox CODE STATUS: DNR CCA, DNI. This was confirmed with the patient's sister who is patient's medical power of commonwealth attorney. She notes that this was patient's expressed wishes in the past. Expected disposition: TBD Total clinical time spent by myself addressing the patient's medical issues, reviewing all the data, and collaborating with patient's care team: 75 minutes. Charges/Coding Visit Charges Inpatient E&M: 94120 Init Hosp L3 02/08/25 1536 <Electronically signed by Ajith Zimmer DO> Cosigner Signature (if applicable): CC: Dr. Ajith Zimmer, ; No Primary Care Physician~ Signed [facility] Work Phone: [phone] Discharge summary Author Michael Allen [facility] Note Date/Time February 08, 2025 3:12 pm [facility] Medical Records Department [address] [place] [address] Emergency Department Summary 02/08/25 MR#: [id number] Acct: [id number] Name: SOPHIA CORTES Rep #:[id number] : 1940 84 From: Michael Allen DO PCP: Care Physician,No Primary Status :ADM MARCELA Location: [address] History of Present Illness Chief Complaint: General Illness Detail of Chief Complaint: Failure to thrive and needing halfway placement Informant: patient and family Narrative Narrative: Patient presents to the emergency department with his sister. He apparently is not doing well at home and lives alone. She feels he needs halfway placement. Patient recently admitted to a psychiatric facility for suicidal ideation on January 23. Patient has history of some dementia. Sister has medical power of commonwealth attorney for him. He is not eating and drinking normally. He is answering some questions but not really having conversations. Sister does not feel he can care for himself. He developed a slight cough a few days ago. [facility] Medical History (Updated 02/08/25 @ 13:[address] 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) LV (left ventricular) mural thrombus Atherosclerosis of douglas coronary 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 (07/28/09) Ischemic cardiomyopathy HLD (hyperlipidemia) Bradycardia Home Medications ?Medication ?Instructions ?Recorded ?Last Taken ?Type aspirin 81 mg tablet,delayed 81 mg PO QDAY 07/23/17 Un known History release (Adult Aspirin Regimen) atorvastatin 80 mg tablet 80 mg PO QDAY #90 tabs 10/27 Unknown Rx carvedilol 12.5 mg tablet 12.5 mg PO BID #180 tabs Unknown Rx lisinopril 10 mg tablet 10 mg PO QDAY #90 tabs 09/23 Unknown Rx acetaminophen 325 mg capsule 650 mg PO Q6H PRN pain Unknown History donepezil 10 mg tablet 10 mg PO DAILY 02/08/25 Unkn own History magnesium hydroxide 400 mg/5 mL 30 ml PO BID PRN const ipation 02/08/25 Unknown History oral suspension (Dulcolax (magnesium hydroxide)) memantine 5 mg tablet 5 mg PO BID 02/08/25 Unknown History risperidone 1 mg tablet 1 mg PO BID 02/08/25 Unknown History Allergy/AdvReac Type Severity Reaction Status Date / Time No Known Allergies Allergy Verified 02/08/25 11:55 Family History Mother CAD (coronary artery disease) Myocardial infarction Aunt CAD (coronary artery disease) Myocardial infarction Uncle CAD (coronary artery disease) Myocardial infarction Surgical History Presence of automatic implantable cardioverter-defibrillator (07/23/12) History of coronary artery stent placement (07/28/09) Social History Smoking Status: Never smoker alcohol intake: never substance use type: does not use caffeine: Yes Type: coffee what type of physical activity do you participate in: walking frequency: daily duration: 60-90 minutes/day seatbelt use: always do you feel safe at home: Yes ROS ROS ED Review of Systems ROS Unobtainable: other Constitutional Constitutional ED: Reports lethargy; Denies chills, fever(s), sweats or weight loss Eyes Eyes: Denies blurry vision, change in vision or diplopia ENT ENT ED: Denies rhinorrhea or sore throat Cardiovascular Cardiovascular: Denies chest pain, orthopnea or racing heartbeat Respiratory/Chest Respiratory/Chest: Reports cough; Denies dyspnea, dyspnea on exertion, orthopneaor sputum Gastrointestinal Gastrointestinal: Denies abdominal pain, diarrhea, nausea or vomiting Genitourinary Genitourinary ED: Denies dysuria, hematuria or urinary frequency Musculoskeletal Musculoskeletal: Denies arthralgias, back pain, myalgias or neck pain Integumentary Denies abscess, Abrasions or rash Neurologic Neurologic: Denies headache(s) or weakness Psychiatric Psychiatric: Denies anxiety, depression or suicidal thoughts Endocrine Endocrinology: Denies polydipsia, polyphagia or polyuria Hematologic/Lymphatic Hematologic/Lymphatic: Denies easy bleeding, easy bruising or lymphadenopathy Allergic/Immunologic Allergic/Immunologic ED: Denies mouth swelling, tongue swelling or urticaria EXAM Physical Exam Const Vital Signs: 02/08/25 11:55 02/08/25 12:08 Temperature 96.9 F L Temperature Source Temporal Pulse Rate 53 L Respiratory Rate 14 Respiratory Effort Normal Non-Labored Respiratory Pattern Normal Blood Pressure 97/65 Blood Pressure Mean 75 Pulse Ox 98 Oxygen Delivery Method Room Air Positive well nourished and well developed General Appearance ED: well developed and NAD HEENT Reports TM's clear and moist mucous membranes normocephalic and atraumatic; Negative for trauma or tenderness Tympanic Membrane ED: Yes TM's clear Eyes PERRL and EOMs intact bilaterally General Eye ED: Negative for pale conjunctiva or scleral icterus Neck no lymphadenopathy, supple and no JVD General: Negative for tenderness Chest Wall inspection of chest normal and palpation of chest normal Chest: Negative for tenderness Resp normal respiratory effort and clear to auscultation bilaterally Effort and Inspection: Negative for respiratory distress or pain with movement Auscultation: Negative for rhonchi, wheezes or diminished lung sounds Cardio regular rate, regular rhythm, S1 normal heart sound, S2 normal heart sound and no murmurs Peripheral Pulses: pulses 2+ throughout GI normal to inspection, nondistended, normoactive bowel sounds, soft to palpation,non-tender, non-distended and no masses Back/Spine no CVA tenderness and no thoracic nor lumbar tenderness Extremity normal to inspection General Extremety ED: Negative for edema General Extremity: Negative for edema Neuro oriented x3, CN's II-XII intact bilaterally, no sensory deficits noted and gait normal Sensorium / Orientation: awake, alert, oriented to person, oriented to place andoriented to time Motor Exam: strength 5/5 throughout and strength abnormal Psych mental status grossly normal Skin no rashes or lesions noted and no wounds MDM MDM MDM Narrative Medical decision making narrative: Patient presents with concern for failure to thrive and history of dementia. Patient's sister asking that patient be placed in to extended-care facility. EKG obtained arrival showed sinus bradycardia with rate of [address] changes. CBC with differential shows white count 5.4 with hemoglobin 12.1 platelet count of 121. Chemistries unremarkable. BUN 39 and creatinine 1.64. LFTs unremarkable. CT scan of the brain showed no acute disease process. Lab Data Attestation: I reviewed the patient's lab results. Labs: Laboratory Results - last 24 hr 02/08/25 12:22 WBC 5.4 RBC 3.81 L Hgb 12.1 L Hct 35.5 L MCV 93.2 MCH 31.8 MCHC 34.1 RDW Std Deviation 43.7 RDW Coeff of Neva 12.8 Plt Count 121 L MPV 11.4 Immature Gran % (Auto) 0.400 Neut % (Auto) 74.4 H Lymph % (Auto) 13.6 L [place] % (Auto) 10.7 H Eos % (Auto) 0.7 Baso % (Auto) 0.2 Absolute Neuts (auto) 4.0 Absolute Lymphs (auto) 0.74 L Nucleated RBC % 0 Sodium 137 Potassium 3.7 Chloride 102 Carbon Dioxide 21.7 Anion Gap 14 BUN 39 H Creatinine 1.64 H Estim Creat Clear Calc 27.90 L Est GFR (MDRD) Non-Af 42 L BUN/Creatinine Ratio 23.5 H Glucose 132 H Calcium 9.2 Total Bilirubin 1.16 AST 19 ALT 9 Alkaline Phosphatase 91 Total Protein 6.7 Albumin 3.9 Globulin 2.8 Albumin/Globulin Ratio 1.4 Radiography Diagnostic Testing: Clinical Impression(s) from Imaging Studies Brain CT 02/08/25 12:10 IMPRESSION: No acute intracranial pathology. [facility] 02/08/25 12:10 IMPRESSION: No acute cardiopulmonary process. Reading [facility] 1 view chest x-ray obtained interpreted by myself as no evidence of infiltrate or pneumothorax or acute disease process. Radiology in agreement EKG Initial EKG: Attestation: I personally reviewed and interpreted this EKG as follows: Comments: Sinus rhythm with rate of [address] changes Discharge Plan Triage Chief Complaint: General Illness ED Provider: Michael Allen Dx/Rx/DC Orders Clinical Impression: Weakness, Adult failure to thrive, Dementia Prescriptions: No Action aspirin [Adult Aspirin Regimen] 81 mg tablet,delayed release (DR/EC) 81 mg PO QDAY atorvastatin 80 mg tablet 80 mg PO QDAY Qty: 90 3RF magnesium hydroxide [Dulcolax (magnesium hydroxide)] 400 mg/5 mL suspension 30 ml PO BID PRN (Reason: constipation) acetaminophen 325 mg capsule 650 mg PO Q6H PRN (Reason: pain) donepezil 10 mg tablet 10 mg PO DAILY risperidone 1 mg tablet 1 mg PO BID memantine 5 mg tablet 5 mg PO BID lisinopril 10 mg tablet 10 mg PO QDAY Qty: 90 3RF carvedilol 12.5 mg tablet 12.5 mg PO BID Qty: 180 3RF Primary Care Provider: Care Physician,No Primary Referrals: Care Physician,No Primary [Primary Care Provider] - Print Language: Trinidadian Disposition Disposition: Acute Care Hospital [facility] What to do if you have Problems For any increased pain, shortness of breath, bleeding, nausea or vomiting, chestpain, or any unexpected problems, contact your Primary Care Provider. Call [facility] ([phone]) or report to the closest Emergency Room. Call 911 if necessary. 02/08/25 1512 <Electronically signed by Michael Allen DO> Cosigner Signature (if applicable): CC: No Primary Care Physician ~ Signed [facility] Work Phone: [phone] History and physical note [facility] Medical Records Department [address] [place] [id number] H&P Exam - Hospitalist 02/08/25 1345 MR#: [id number] Acct: [id number] Name: SOPHIA CORTES Rep #:[id number] : 1940 84 From: Ajith pineda DO PCP: Care Physician,No Primary Status :ADM MARCELA Location: [place] [address] HPI - General General Date of Admission: 02/08/25 Date of Service: 02/08/25 Chief Complaint: Failure to thrive HPI Narrative SOPHIA CORTES, is a 84 M who presented to [facility] ED on 02/08/2025 with adult failure to thrive. Patient lives at home alone. He was recently seen in the ED here on 01/23 for suicidal ideation and was admitted to apsychiatric facility for this. Has history of dementia and sister is medical power of commonwealth attorney. Medical history otherwise significant for CAD with stenting,HFrEF with ischemic cardiomyopathy s/p ICD placement, NSVT and paroxysmal atrialflutter. He presented to the ED today with his sister. She noted that he has not been eating and drinking normally recently, has been more confused than his normal and she is very concerned about him being able to care for himself at home. In the ED he had sinus bradycardia to the low 50s but was otherwise normotensive and stable onroom air. CBC fairly benign. BMP with creatinine 1.64 (baseline appears to be around 1.3), BUN 39, otherwise unremarkable. UA was benign. CT brain unremarkable. Given need for placement, hospitalist was contacted for admission. I saw the patient at bedside in the ED, sister was present. Patient waslaying back in bed and making appropriate eye contact. Hewas alert and oriented to person and placebut not time and had difficulty answering any other questions for me. He denied any pain or discomfo rt anywhere. No other acute concerns currently. Will be admitted for further management. 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) LV (left ventricular) mural thrombus Atherosclerosis of douglas coronary 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 (07/28/09) Ischemic cardiomyopathy HLD (hyperlipidemia) Bradycardia Home Medications ?Medication ?Instructions ?Recorded ?Last Taken ?Type aspirin 81 mg tablet,delayed 81 mg PO QDAY 07/23/17 Un known History release (Adult Aspirin Regimen) atorvastatin 80 mg tablet 80 mg PO QDAY #90 tabs 10/27 Unknown Rx carvedilol 12.5 mg tablet 12.5 mg PO BID #180 tabs Unknown Rx lisinopril 10 mg tablet 10 mg PO QDAY #90 tabs 09/23 Unknown Rx acetaminophen 325 mg capsule 650 mg PO Q6H PRN pain Unknown History donepezil 10 mg tablet 10 mg PO DAILY 02/08/25 Unkn own History magnesium hydroxide 400 mg/5 mL 30 ml PO BID PRN const ipation 02/08/25 Unknown History oral suspension (Dulcolax (magnesium hydroxide)) memantine 5 mg tablet 5 mg PO BID 02/08/25 Unknown History risperidone 1 mg tablet 1 mg PO BID 02/08/25 Unknown History Allergy/AdvReac Type Severity Reaction Status Date / Time No Known Allergies Allergy Verified 02/08/25 11:55 Family History Mother CAD (coronary artery disease) Myocardial infarction Aunt CAD (coronary artery disease) Myocardial infarction Uncle CAD (coronary artery disease) Myocardial infarction Surgical History Presence of automatic implantable cardioverter-defibrillator (07/23/12) History of coronary artery stent placement (07/28/09) Social History Smoking Status: Never smoker alcohol intake: never substance use type: does not use caffeine: Yes Type: coffee what type of physical activity do you participate in: walking frequency: daily duration: 60-90 minutes/day seatbelt use: always do you feel safe at home: Yes ROS Review of Systems ROS Unobtainable: due to mental status Constitutional Constitutional: Reports fatigue; Denies chills or fever(s) Cardiovascular Cardiovascular: Denies chest pain Respiratory/Chest Respiratory/Chest: Denies shortness of breath at rest Gastrointestinal Gastrointestinal: Denies abdominal pain Vital Signs Vital Signs Vital Signs: 02/08/25 11:55 02/08/25 12:08 Temperature 96.9 F L Temperature Source Temporal Pulse Rate 53 L Respiratory Rate 14 Respiratory Effort Normal Non-Labored Respiratory Pattern Normal Blood Pressure 97/65 Blood Pressure Mean 75 Pulse Ox 98 Oxygen Delivery Method Room Air Weight Weight: 56.8 kg Body Mass Index (BMI) 19.5 Physical Exam Const alert and no apparent distress Constitutional Narrative: Elderly male, thin and somewhat cachectic appearing, fatigued appearing, alert and oriented to person and place but not time, otherwise laying back comfortablyin bed and in no acute distress. General Appearance: cooperative and comfortable HEENT normocephalic, head/scalp atraumatic, hearing grossly normal bilaterally and nasal mucous membranesand turbinates normal HEENT Narrative: Dry mucous membranes. Eyes PERRL, EOMs intact bilaterally and conjunctivae normal Neck full ROM Chest inspection of chest normal Resp normal respiratory effort, normal air movement, no use of accessory muscles and clear to auscultation bilaterally Cardio no murmurs and peripheral pulses 2+ throughout Cardio Narrative: Bradycardic, regular rhythm. GI normal to inspection, nondistended, normoactive bowel sounds, soft to palpation,non-tender and non-distended Back/Spine normal ROM Extremity normal to inspection and no pedal edema Psych Psych Narrative: Flat affect. Results Lab / Micro Data 02/08/25 12:22 02/08/25 12:22 Labs: Laboratory Results - last 24 hr 02/08/25 12:22: WBC 5.4, RBC 3.81 L, Hgb 12.1 L, Hct 35.5 L, MCV 93.2, MCH 31.8,MCHC 34.1, RDW Std Deviation 43.7, RDW Coeff of Neva 12.8, Plt Count 121 L, MPV 11.4, Immature Gran % (Auto) 0.400, Neut% (Auto) 74.4 H, Lymph % (Auto) 13.6 L,[place] % (Auto) 10.7 H, Eos % (Auto) 0.7, Baso % (Auto) 0.2, Absolute Neuts (auto)4.0, Absolute Lymphs (auto) 0.74 L, Nucleated RBC % 0, Sodium 137, Potassium 3.7, Chloride 102, Carbon Dioxide 21.7, Anion Gap 14, BUN 39 H, Creatinine 1.64 H, Estim Creat Clear Calc 27.90 L, Est GFR (MDRD) Non-Af 42 L, BUN/Creatinine Ratio 23.5 H, Glucose 132 H, Calcium 9.2, Total Bilirubin 1.16, AST 19, ALT 9, Alkaline Phosphatase 91, Total Protein 6.7, Albumin 3.9, Globulin 2.8, Albumin/Globulin Ratio 1.4 Imaging Radiology Impression Brain CT 02/08/25 12:10 IMPRESSION: No acute intracranial pathology. Reading Location: [facility] Chest X-Ray 02/08/25 12:10 IMPRESSION: No acute cardiopulmonary process. Reading [facility] Assessment & Plan Assessment/Plan (1) Adult failure to thrive: (2) Dementia: (3) Weakness: PLAN: Plan Patient is an 84-year-old male who presented to [facility] ED on02/08/2025 with adult failure to thrive. 1. Adult failure to thrive in setting of dementia ? Admit under observation status to [facility]. PT/OT/case management consulted. Nutrition consulted given BMI 19 and concern for malnutrition. Patient alert and oriented x [address] but nottime in the ED and had difficulty answering other questions appropriately. Lives at home alone. Suspect he will need either SNF or memory unit placement on discharge. Continue home donepezil and memantine. 2. Depression/anxiety with recent suicidal ideation ? Recent ED visit on 01/23 for suicidal ideation. He apparently put a gun to hishead in front of neighbors and said he wanted to "end it all". Required inpatient psychiatric hospitalization at [facility] andwas apparently started on Risperdal 1 mg twice daily at that time with only some improvement per family. Will continue home Risperdal. 3. Mild creatinine elevation ? Creatinine 1.64, BUN 39 on admit. Baseline creatinine appears to be around 1.3. Suspect mild dehydration secondary to poor p.o. intake at home. Will give1 L of fluids over several hours on admit. Follow-up a.m. BMP and monitor urineoutput. 4. Sinus bradycardia ? Sinus bradycardia to the low 50s noted in the ED. Remains normotensive. Presume secondary to homemedications of Coreg and donepezil. Will reduce dose of Coreg to only 3.125 mg twice daily. Continue home donepezil. Blood pressure 5. History of CAD with stenting, chronic HFrEF with ischemic cardiomyopathy s/pICD placement, hypertension, hyperlipidemia, NSVT, reported history of paroxysmal atrial flutter ? History of anterior wall [place] in 2009 requiring stenting. Had resultant ischemic cardiomyopathy with ICD placement in 2012. Last echo in 2019 showed EF40%, stage I diastolic function, regional wall motion abnormalities noted that were stable from previous. Patient is not on a blood thinner; unclearregardinghistory of atrial flutter. Decreased Coreg dosing as above and will hold home lisinopril in setting of mild creatinine elevation as above. Is on [id number] mg, will reduce to 40 mg givenage greater than 75. Continue home aspirin. DVT prophylaxis: Lovenox CODE STATUS: DNR CCA, DNI. This was confirmed with the patient's sister who is patient's medical power of commonwealth attorney. She notes that this was patient's expressed wishes in the past. Expected disposition: TBD Total clinical time spent by myself addressing the patient's medical issues, reviewing all the data, and collaborating with patient's care team: 75 minutes. Charges/Coding Visit Charges Inpatient E&M: 23682 Init Hosp L3 02/08/25 3831 Cosigner Signature (if applicable): CC: Dr. Ajith Zimmer DO; No Primary Care Physician~ Signed [facility]07-29-2025 Discharge summary [facility] Medical Records Department [address] [place] [address] Emergency Department Summary 02/08/25 MR#: [id number] Acct: [id number] Name: SOPHIA CORTES Rep #:[id number] : 1940 84 From: Michael Allen DO PCP: Care Physician,No Primary Status :ADM MARCELA Location: [place] [address] HPI History of Present Illness Chief Complaint: General Illness Detail of Chief Complaint: Failure to thrive and needing halfway placement Informant: patient and family Narrative Narrative: Patient presents to the emergency department with his sister. He apparently is not doing well at home and lives alone. She feels he needs halfway placement. Patient recently admitted to a psychiatric facility for suicidal ideation on January 23. Patient has history of some dementia. Sister has medical power of commonwealth attorney for him. He is not eating and drinking normally. He is answering some questions but not really having conversations. Sister does not feel he can care for himself. He developed a slight cough a few days ago. [facility] Medical History (Updated 02/08/25 @ 13:[address] 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) LV (left ventricular) mural thrombus Atherosclerosis of douglas coronary 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 (07/28/09) Ischemic cardiomyopathy HLD (hyperlipidemia) Bradycardia Home Medications ?Medication ?Instructions ?Recorded ?Last Taken ?Type aspirin 81 mg tablet,delayed 81 mg PO QDAY 07/23/17 Un known History release (Adult Aspirin Regimen) atorvastatin 80 mg tablet 80 mg PO QDAY #90 tabs 10/27 Unknown Rx carvedilol 12.5 mg tablet 12.5 mg PO BID #180 tabs Unknown Rx lisinopril 10 mg tablet 10 mg PO QDAY #90 tabs 09/23 Unknown Rx acetaminophen 325 mg capsule 650 mg PO Q6H PRN pain Unknown History donepezil 10 mg tablet 10 mg PO DAILY 02/08/25 Unkn own History magnesium hydroxide 400 mg/5 mL 30 ml PO BID PRN const ipation 02/08/25 Unknown History oral suspension (Dulcolax (magnesium hydroxide)) memantine 5 mg tablet 5 mg PO BID 02/08/25 Unknown History risperidone 1 mg tablet 1 mg PO BID 02/08/25 Unknown History Allergy/AdvReac Type Severity Reaction Status Date / Time No Known Allergies Allergy Verified 02/08/25 11:55 Family History Mother CAD (coronary artery disease) Myocardial infarction Aunt CAD (coronary artery disease) Myocardial infarction Uncle CAD (coronary artery disease) Myocardial infarction Surgical History Presence of automatic implantable cardioverter-defibrillator (07/23/12) History of coronary artery stent placement (07/28/09) Social History Smoking Status: Never smoker alcohol intake: never substance use type: does not use caffeine: Yes Type: coffee what type of physical activity do you participate in: walking frequency: daily duration: 60-90 minutes/day seatbelt use: always do you feel safe at home: Yes ROS ROS ED Review of Systems ROS Unobtainable: other Constitutional Constitutional ED: Reports lethargy; Denies chills, fever(s), sweats or weight loss Eyes Eyes: Denies blurry vision, change in vision or diplopia ENT ENT ED: Denies rhinorrhea or sore throat Cardiovascular Cardiovascular: Denies chest pain, orthopnea or racing heartbeat Respiratory/Chest Respiratory/Chest: Reports cough; Denies dyspnea, dyspnea on exertion, orthopneaor sputum Gastrointestinal Gastrointestinal: Denies abdominal pain, diarrhea, nausea or vomiting Genitourinary Genitourinary ED: Denies dysuria, hematuria or urinary frequency Musculoskeletal Musculoskeletal: Denies arthralgias, back pain, myalgias or neck pain Integumentary Denies abscess, Abrasions or rash Neurologic Neurologic: Denies headache(s) or weakness Psychiatric Psychiatric: Denies anxiety, depression or suicidal thoughts Endocrine Endocrinology: Denies polydipsia, polyphagia or polyuria Hematologic/Lymphatic Hematologic/Lymphatic: Denies easy bleeding, easy bruising or lymphadenopathy Allergic/Immunologic Allergic/Immunologic ED: Denies mouth swelling, tongue swelling or urticaria EXAM Physical Exam Const Vital Signs: 02/08/25 11:55 02/08/25 12:08 Temperature 96.9 F L Temperature Source Temporal Pulse Rate 53 L Respiratory Rate 14 Respiratory Effort Normal Non-Labored Respiratory Pattern Normal Blood Pressure 97/65 Blood Pressure Mean 75 Pulse Ox 98 Oxygen Delivery Method Room Air Positive well nourished and well developed General Appearance ED: well developed and NAD HEENT Reports TM's clear and moist mucous membranes normocephalic and atraumatic; Negative for trauma or tenderness Tympanic Membrane ED: Yes TM's clear Eyes PERRL and EOMs intact bilaterally General Eye ED: Negative for pale conjunctiva or scleral icterus Neck no lymphadenopathy, supple and no JVD General: Negative for tenderness Chest Wall inspection of chest normal and palpation of chest normal Chest: Negative for tenderness Resp normal respiratory effort and clear to auscultation bilaterally Effort and Inspection: Negative for respiratory distress or pain with movement Auscultation: Negative for rhonchi, wheezes or diminished lung sounds Cardio regular rate, regular rhythm, S1 normal heart sound, S2 normal heart sound and no murmurs Peripheral Pulses: pulses 2+ throughout GI normal to inspection, nondistended, normoactive bowel sounds, soft to palpation,non-tender, non-distended and no masses Back/Spine no CVA tenderness and no thoracic nor lumbar tenderness Extremity normal to inspection General Extremety ED: Negative for edema General Extremity: Negative for edema Neuro oriented x3, CN's II-XII intact bilaterally, no sensory deficits noted and gait normal Sensorium / Orientation: awake, alert, oriented to person, oriented to place andoriented to time Motor Exam: strength 5/5 throughout and strength abnormal Psych mental status grossly normal Skin no rashes or lesions noted and no wounds MDM MDM MDM Narrative Medical decision making narrative: Patient presents with concern for failure to thrive and history of dementia. Patient's sister asking that patient be placed in to extended-care facility. EKG obtained arrival showed sinus bradycardiawith rate of [address] changes. CBC with differential shows white count 5.4 with hemoglobin 12.1 platelet count of 121. Chemistries unremarkable. BUN 39 and creatinine 1.64. LFTs unremarkable. CT scan of the brain showed no acute disease process. Lab Data Attestation: I reviewed the patient's lab results. Labs: Laboratory Results - last 24 hr 02/08/25 12:22 WBC 5.4 RBC 3.81 L Hgb 12.1 L Hct 35.5 L MCV 93.2 MCH 31.8 MCHC 34.1 RDW Std Deviation 43.7 RDW Coeff of Neva 12.8 Plt Count 121 L MPV 11.4 Immature Gran % (Auto) 0.400 Neut % (Auto) 74.4 H Lymph % (Auto) 13.6 L [place] % (Auto) 10.7 H Eos % (Auto) 0.7 Baso % (Auto) 0.2 Absolute Neuts (auto) 4.0 Absolute Lymphs (auto) 0.74 L Nucleated RBC % 0 Sodium 137 Potassium 3.7 Chloride 102 Carbon Dioxide 21.7 Anion Gap 14 BUN 39 H Creatinine 1.64 H Estim Creat Clear Calc 27.90 L Est GFR (MDRD) Non-Af 42 L BUN/Creatinine Ratio 23.5 H Glucose 132 H Calcium 9.2 Total Bilirubin 1.16 AST 19 ALT 9 Alkaline Phosphatase 91 Total Protein 6.7 Albumin 3.9 Globulin 2.8 Albumin/Globulin Ratio 1.4 Radiography Diagnostic Testing: Clinical Impression(s) from Imaging Studies Brain CT 02/08/25 12:10 IMPRESSION: No acute intracranial pathology. Reading [facility] Chest X-Ray 02/08/25 12:10 IMPRESSION: No acute cardiopulmonary process. Reading [facility] 1 view chest x-ray obtained interpreted by myself as no evidence of infiltrate or pneumothorax or acute disease process. Radiology in agreement EKG Initial EKG: Attestation: I personally reviewed and interpreted this EKG as follows: Comments: Sinus rhythm with rate of [address] changes Discharge Plan Triage Chief Complaint: General Illness ED Provider: Michael Allen Dx/Rx/DC Orders Clinical Impression: Weakness, Adult failure to thrive, Dementia Prescriptions: No Action aspirin [Adult Aspirin Regimen] 81 mg tablet,delayed release (DR/EC) 81 mg PO QDAY atorvastatin 80 mg tablet 80 mg PO QDAY Qty: 90 3RF magnesium hydroxide [Dulcolax (magnesium hydroxide)] 400 mg/5 mL suspension 30 ml PO BID PRN (Reason: constipation) acetaminophen 325 mg capsule 650 mg PO Q6H PRN (Reason: pain) donepezil 10 mg tablet 10 mg PO DAILY risperidone 1 mg tablet 1 mg PO BID memantine 5 mg tablet 5 mg PO BID lisinopril 10 mg tablet 10 mg PO QDAY Qty: 90 3RF carvedilol 12.5 mg tablet 12.5 mg PO BID Qty: 180 3RF Primary Care Provider: Care Physician,No Primary Referrals: Care Physician,No Primary [Primary Care Provider] - Print Language: Trinidadian Disposition Disposition: Acute Care Hospital [facility] What to do if you have Problems For any increased pain, shortness of breath, bleeding, nausea or vomiting, chestpain, or any unexpected problems, contact your Primary Care Provider. Call [facility] ([phone]) or report tothe closest Emergency Room. Call 911 if necessary. 02/08/25 1512 Cosigner Signature (if applicable): CC: No Primary Care Physician ~ Signed [facility]07-29-2025 Radiology Diagnostic study note [facility] Imaging Services [address] [place] [address] Brain/Head without Contrast MR#: [id number] Acct: [id number] Name: SOPHIA CORTES Rep #: [id number] : 1940 M 84 From: Richard Sullivan MD PCP: Care Physician,No Primary Status: REG ER Study:Brain/Head without Contrast Date of Exa m: 02/08/25 Exam# [id number] Ordering Dr: Briana Allen DO EXAM: NONCONTRAST CT SCAN OF THE HEAD CLINICAL HISTORY: Mental status change, weakness COMPARISON: January 23, 2025 TECHNIQUE: Serial axial series through the head were obtained without contrast. 2-D coronaland sagittal reformats were then obtained. FINDINGS: Brain: There is no acute large territorial infarct, intracranial hemorrhage, midline shift or mass effect. There are atherosclerotic vascular calcifications involving the bilateral carotid siphons.The sella and pineal gland regions appear unremarkable. There is no evidence of cerebellar tonsillar herniation. Ventricles: There is no acute hydrocephalus. Basilar cisterns are patent. Paranasal sinuses: Well-aerated Mastoid air cells: Well-aerated. Calvarium: The bony calvarium is intact. Orbits: The bilateral globes are symmetric, without retrobulbar compressive masslesion or hemorrhage. CT/Brain/Head without Contrast IMPRESSION: No acute intracranial pathology. Reading Location: [facility] CC: Dr. Michael Allen DO; No Primary Care Physician ~ Family Readiness Support Assistant: Signed [facility]07-29-2025 Radiology Diagnostic study note [facility] Imaging Services [address] [place] [address] Chest 1 View (Portable) MR#: [id number] Acct: [id number] Name: HARRIET CORTESNEAL Young Rep #: [id number] : 1940 M 84 From: Odalys Lindsay MD PCP: Care Physician,No Primary Status: REG ER Study:Chest 1 View (Portable) Date of Exam: 02/08/25 Exam# [id number] Ordering Dr: Briana Allen DO EXAM: XR Chest, 1 View CLINICAL INDICATION: COUGH TECHNIQUE: Frontal view of the chest. COMPARISON: No relevant prior studies available. FINDINGS: LUNGS AND PLEURAL SPACES: Unremarkable. No consolidation. No pneumothorax. HEART: Unremarkable. No cardiomegaly. MEDIASTINUM: Unremarkable. Normal mediastinal contour. BONES/JOINTS: Unremarkable. No acute fracture. TUBES, LINES AND DEVICES: Left-sided cardiac pacemaker. RAD/Chest 1 View (Portable) IMPRESSION: No acute cardiopulmonary process. Reading Location: [facility] CC: Dr. Michael Allen DO; No Primary Care Physician ~ Family Readiness Support Assistant: Signed [facility]07-13-2025 Discharge summary Author Henry Florentino [facility] Note Date/Time January 23, 2025 8:06 am [facility] Medical Records Department [address] [place] [address] Emergency Department Summary 01/23/25 MR#: [id number] Acct: [id number] Name: HARRIET CORTESNEAL Young Rep #:[id number] : 1940 84 From: Henry sanders DO PCP: Care Physician,No Primary Status :REG ER Location: ED ADDENDUM by Dr. Henry Florentino DO on 01/23/25 at 0806 UA negative for UTI. 01/23/25 0806<Electronically signed by Henry Florentino DO> Cosigner Signature (if applicable): cc: No Primary Care Physician ~* Signed HPI History of Present Illness Chief Complaint: Suicidal Narrative Narrative: Chief complaint and HPI: Suicidal ideation. 84-year-old male with past medical history of HTN, HLD presents as a pink slip by police for suicidal ideation. Police officers responded to a threat complaint as patient was making threats tohis neighbors. He then stated multiple times that he wanted to end it all and put a gun to his head. On presentation, patient is calm and sitting in the bed. He repeats I am just tired of this and want to end it." When I asked him about the reported statement that he wanted to end his life with a gun, he states that is not true. Although he did state it to my nurse prior to me entering the room. He denies homicidal ideation. He states he does not want totalk to me and does not want to answer my questions. Review of systems: See HPI Medications: As listed on the chart Allergies: As listed on the chart PFSH: Per chart Vital signs: As listed on the chart. Reviewed. 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) LV (left ventricular) mural thrombus Atherosclerosis of douglas coronary 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 (07/28/09) Ischemic cardiomyopathy HLD (hyperlipidemia) Bradycardia Home Medications ?Medication ?Instructions ?Recorded ?Last Taken ?Type aspirin 81 mg tablet,delayed 81 mg PO QDAY 07/23/17 Un known History release (Adult Aspirin Regimen) atorvastatin 80 mg tablet 80 mg PO QDAY #90 tabs 10/27 Unknown Rx carvedilol 12.5 mg tablet 12.5 mg PO BID #180 tabs Unknown Rx lisinopril 10 mg tablet 10 mg PO QDAY #90 tabs 09/23 Unknown Rx Allergy/AdvReac Type Severity Reaction Status Date / Time No Known Allergies Allergy Verified 12/01/24 14:17 Family History Mother CAD (coronary artery disease) Myocardial infarction Aunt CAD (coronary artery disease) Myocardial infarction Uncle CAD (coronary artery disease) Myocardial infarction Surgical History Presence of automatic implantable cardioverter-defibrillator (07/23/12) History of coronary artery stent placement (07/28/09) Social History Smoking Status: Never smoker alcohol intake: never substance use type: does not use caffeine: Yes Type: coffee what type of physical activity do you participate in: walking frequency: daily duration: 60-90 minutes/day seatbelt use: always do you feel safe at home: Yes EXAM Physical Exam Const Vital Signs: 01/22/25 23:50 01/23/25 00:49 01/23/25 02:00 Temperature 98.3 F Temperature Source Oral Pulse Rate 58 L 84 91 Respiratory Rate 16 18 16 Blood Pressure 149/110 H 138/96 H 132/89 H Blood Pressure Mean 123 110 103 Pulse Ox 100 98 99 Oxygen Delivery Method Room Air 01/23/25 02:54 Temperature Temperature Source Pulse Rate 94 Respiratory Rate 16 Blood Pressure 141/99 H Blood Pressure Mean 113 Pulse Ox 99 Oxygen Delivery Method MDM MDM MDM Narrative Medical decision making narrative: 84-year-old male with past medical history of HTN, HLD presents as a pink slip by police for suicidal ideation. See HPI. On presentation, patient is alert and oriented x 3 but is reluctant to speak with me. He states that " I am just sick of it all." He told my nurse prior to me entering the room that he did want to kill himself with a gun. Given the reports from police, my nurse, and my own assessment, patient will be pink slipped for suicidal ideation. He was informed of this. Confirmed understanding. Basic labs ordered and crisis consulted. CBC shows pancytopenia with a WBC of 4.2, hemoglobin 11.8, and platelet count of 136. He has not had labs in our emergency department since 2023. At that time he had a normal white count but has had previous leukopenia in the past. His anemia is new from 2023. He has had leukopenia since 2014. Idid speak with the patient about his lab results. He states he does not know the last time he had his labs drawn. He denies any bloody or dark bowel movements. BMP shows renal insufficiency with a BUN of 27 and a creatinine of 1.53. I suspect this is chronic as in 2023 patient had an elevated BUN of 20 and a creatinine 1.27. Urine drug screen negative. Alcohol level unremarkable. Patient is cleared to be evaluated by crisis. Crisis evaluated the patient andis recommending Thel[facility] psych. They state he missed one of his orientation questions however he got them all correctly for me. Will add on CT brain and UA. CT of the head shows moderate global parenchymal atrophy and chronic microvascular ischemia. UA pending at this time. [facility]. Will await UA results prior to arrival. Patient was signed out to oncoming provider who will await the UA results. Impression: 1. Suicidal ideation 2. Pancytopenia 3. Renal insufficiency Lab Data Labs: Laboratory Results - last 24 hr 01/23/25 01/23/25 00:13 01:30 WBC 4.2 L RBC 3.72 L Hgb 11.8 L Hct 34.1 L MCV 91.7 MCH 31.7 MCHC 34.6 RDW Std Deviation 41.1 RDW Coeff of Neva 12.2 Plt Count 136 L MPV 12.1 H Immature Gran % (Auto) 0.200 Neut % (Auto) 58.0 Lymph % (Auto) 31.2 [place] % (Auto) 8.7 Eos % (Auto) 1.7 Baso % (Auto) 0.2 Absolute Neuts (auto) 2.5 Absolute Lymphs (auto) 1.32 Nucleated RBC % 0 Sodium 136 Potassium 3.9 Chloride 103 Carbon Dioxide 19.9 L Anion Gap 13 BUN 27 H Creatinine 1.53 H Estim Creat Clear Calc 28.48 L Est GFR (MDRD) Non-Af 45 L BUN/Creatinine Ratio 17.6 Glucose 130 H Calcium 8.9 Urine Opiates Screen NEGATIVE U Buprenorphine Qual NEGATIVE Ur Oxycodone Screen NEGATIVE Urine Methadone Screen NEGATIVE Urine Fentanyl Screen NEGATIVE Ur Barbiturates Screen NEGATIVE Ur Phencyclidine Scrn NEGATIVE Ur Amphetamines Screen NEGATIVE U Benzodiazepines Scrn NEGATIVE Urine Cocaine Screen NEGATIVE U Cannabinoids Screen NEGATIVE Ethyl Alcohol < 10.1 Radiography Diagnostic Testing: Clinical Impression(s) from Imaging Studies Brain CT 01/23/25 02:00 IMPRESSION: NO ACUTE FINDINGS Reading Location: [place] [address] Discharge Plan Triage Chief Complaint: Suicidal ED Provider: Henry Florentino Dx/Rx/DC Orders Prescriptions: No Action aspirin [Adult Aspirin Regimen] 81 mg tablet,delayed release (DR/EC) 81 mg PO QDAY atorvastatin 80 mg tablet 80 mg PO QDAY Qty: 90 3RF lisinopril 10 mg tablet 10 mg PO QDAY Qty: 90 3RF carvedilol 12.5 mg tablet 12.5 mg PO BID Qty: 180 3RF Primary Care Provider: Care Physician,No Primary Referrals: NOT,DEFINED [Non-Staff] - Print Language: Trinidadian What to do if you have Problems For any increased pain, shortness of breath, bleeding, nausea or vomiting, chestpain, or any unexpected problems, contact your Primary Care Provider. Call [facility] ([phone]) or report to the closest Emergency Room. Call 911 if necessary. 01/23/25 0650 <Electronically signed by Henry Florentino DO> Cosigner Signature (if applicable): CC: No Primary Care Physician ~ Signed [facility] Work Phone: [phone]) [phone] Discharge summary [facility] Medical Records Department [address] [place] [address] Emergency Department Summary 01/23/25 MR#: [id number] Acct: [id number] Name: SOPHIA CORTES Rep #:[id number] : 1940 84 From: Henry sanders DO PCP: Care Physician,No Primary Status :REG ER Location: ED ADDENDUM by Dr. Henry Florentino, DO on 01/23/25 at 0806 UA negative for UTI. 01/23/25 0806 Cosigner Signature (if applicable): cc: No Primary Care Physician ~* Signed HPI History of Present Illness Chief Complaint: Suicidal Narrative Narrative: Chief complaint and HPI: Suicidal ideation. 84-year-old male with past medical history of HTN, HLD presents as a pink slip by police for suicidal ideation. Police officers responded to a threat complaint as patient was making threats tohis neighbors. He then stated multiple times that he wanted to end it all and put a gun to his head. On presentation, patient is calm and sitting in the bed. He repeats " I am just tired of this and want to end it." When I asked him about the reported statement that he wanted to end his life with a gun, he states that is not true. Although he did state it to mynurse prior to me entering the room. He denies homicidal ideation. He states he does not want totalk to me and does not want to answer my questions. Review of systems: See HPI Medications: As listed on the chart Allergies: As listed on the chart PFSH: Per chart Vital signs: As listed on the chart. Reviewed. 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) LV (left ventricular) mural thrombus Atherosclerosis of douglas coronary 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 (07/28/09) Ischemic cardiomyopathy HLD (hyperlipidemia) Bradycardia Home Medications ?Medication ?Instructions ?Recorded ?Last Taken ?Type aspirin 81 mg tablet,delayed 81 mg PO QDAY 07/23/17 Un known History release (Adult Aspirin Regimen) atorvastatin 80 mg tablet 80 mg PO QDAY #90 tabs 10/27 Unknown Rx carvedilol 12.5 mg tablet 12.5 mg PO BID #180 tabs Unknown Rx lisinopril 10 mg tablet 10 mg PO QDAY #90 tabs 09/23 Unknown Rx Allergy/AdvReac Type Severity Reaction Status Date / Time No Known Allergies Allergy Verified 12/01/24 14:17 Family History Mother CAD (coronary artery disease) Myocardial infarction Aunt CAD (coronary artery disease) Myocardial infarction Uncle CAD (coronary artery disease) Myocardial infarction Surgical History Presence of automatic implantable cardioverter-defibrillator (07/23/12) History of coronary artery stent placement (07/28/09) Social History Smoking Status: Never smoker alcohol intake: never substance use type: does not use caffeine: Yes Type: coffee what type of physical activity do you participate in: walking frequency: daily duration: 60-90 minutes/day seatbelt use: always do you feel safe at home: Yes EXAM Physical Exam Const Vital Signs: 01/22/25 23:50 01/23/25 00:49 01/23/25 02:00 Temperature 98.3 F Temperature Source Oral Pulse Rate 58 L 84 91 Respiratory Rate 16 18 16 Blood Pressure 149/110 H 138/96 H 132/89 H Blood Pressure Mean 123 110 103 Pulse Ox 100 98 99 Oxygen Delivery Method Room Air 01/23/25 02:54 Temperature Temperature Source Pulse Rate 94 Respiratory Rate 16 Blood Pressure 141/99 H Blood Pressure Mean 113 Pulse Ox 99 Oxygen Delivery Method MDM MDM MDM Narrative Medical decision making narrative: 84-year-old male with past medical history of HTN, HLD presents as a pink slip by police for suicidal ideation. See HPI. On presentation, patient is alert and oriented x 3 but is reluctant to speak with me. He states that " I am just sick of it all." He told my nurse prior to me entering the room that he did want to kill himself with a gun. Given the reports from police, my nurse, and my own assessment, patient will be pink slipped for suicidal ideation. He was informed of this. Confirmed understanding. Basic labs ordered and crisis consulted. CBC shows pancytopenia with a WBC of 4.2, hemoglobin 11.8, and platelet count of 136. He has not had labs in our emergency department since 2023. At that time he had a normal white count but has had previous leukopenia in the past. His anemia is newfrom 2023. He has had leukopenia since 2014. Idid speak with the patient about his lab results. He states he does not know the last time he had his labs drawn. He denies any bloody or dark bowel movements. BMP shows renal insufficiency with a BUN of 27 and a creatinine of 1.53. I suspect this is chr onic as in 2023 patient had an elevated BUN of 20 and a creatinine 1.27. Urine drug screen negative. Alcohol level unremarkable. Patient is cleared to be evaluated by crisis. Crisis evaluated the patient andis recommending Thelma psych. They state he missed one of his orientation questions however hegot them all correctly for me. Will add on CT brain and UA. CT of the head shows moderate global parenchymal atrophy and chronic microvascular ischemia. UA pending at this time. Patient was [facility]. Will await UA results prior to arrival. Patient was signed out to oncoming provider who willawait the UA results. Impression: 1. Suicidal ideation 2. Pancytopenia 3. Renal insufficiency Lab Data Labs: Laboratory Results - last 24 hr 01/23/25 01/23/25 00:13 01:30 WBC 4.2 L RBC 3.72 L Hgb 11.8 L Hct 34.1 L MCV 91.7 MCH 31.7 MCHC 34.6 RDW Std Deviation 41.1 RDW Coeff of Neva 12.2 Plt Count 136 L MPV 12.1 H Immature Gran % (Auto) 0.200 Neut % (Auto) 58.0 Lymph % (Auto) 31.2 [place] % (Auto) 8.7 Eos % (Auto) 1.7 Baso % (Auto) 0.2 Absolute Neuts (auto) 2.5 Absolute Lymphs (auto) 1.32 Nucleated RBC % 0 Sodium 136 Potassium 3.9 Chloride 103 Carbon Dioxide 19.9 L Anion Gap 13 BUN 27 H Creatinine 1.53 H Estim Creat Clear Calc 28.48 L Est GFR (MDRD) Non-Af 45 L BUN/Creatinine Ratio 17.6 Glucose 130 H Calcium 8.9 Urine Opiates Screen NEGATIVE U Buprenorphine Qual NEGATIVE Ur Oxycodone Screen NEGATIVE Urine Methadone Screen NEGATIVE Urine Fentanyl Screen NEGATIVE Ur Barbiturates Screen NEGATIVE Ur Phencyclidine Scrn NEGATIVE Ur Amphetamines Screen NEGATIVE U Benzodiazepines Scrn NEGATIVE Urine Cocaine Screen NEGATIVE U Cannabinoids Screen NEGATIVE Ethyl Alcohol < 10.1 Radiography Diagnostic Testing: Clinical Impression(s) from Imaging Studies Brain CT 01/23/25 02:00 IMPRESSION: NO ACUTE FINDINGS Reading Location: [place] [address] Discharge Plan Triage Chief Complaint: Suicidal ED Provider: Henry Florentino Dx/Rx/DC Orders Prescriptions: No Action aspirin [Adult Aspirin Regimen] 81 mg tablet,delayed release (DR/EC) 81 mg PO QDAY atorvastatin 80 mg tablet 80 mg PO QDAY Qty: 90 3RF lisinopril 10 mg tablet 10 mg PO QDAY Qty: 90 3RF carvedilol 12.5 mg tablet 12.5 mg PO BID Qty: 180 3RF Primary Care Provider: Care Physician,No Primary Referrals: NOT,DEFINED [Non-Staff] - Print Language: Trinidadian What to do if you have Problems For any increased pain, shortness of breath, bleeding, nausea or vomiting, chestpain, or any unexpected problems, contact your Primary Care Provider. Call [facility] ([phone]) or report tothe closest Emergency Room. Call 911 if necessary. 01/23/25 0650 Cosigner Signature (if applicable): CC: No Primary Care Physician ~ Signed [facility]07-13-2025 Radiology Diagnostic study note [facility] Imaging Services [address] [place], [place] [address] Brain/Head without Contrast MR#: [id number] Acct: [id number] Name: SOPHIA CORTES Hector Rep #: [id number] : 1940 M 84 From: Ricky Alvarez MD PCP: Care Physician,No Primary Status: REG ER Study:Brain/Head without Contrast Date of Exa m: 01/23/25 Exam# [id number] Ordering Dr: Henry Kirkpatrick DO PROCEDURE: BRAIN/HEAD WITHOUT CONTRAST 01/23/2025 REASON FOR EXAM: CONFUSION TECHNIQUE: BRAIN/HEAD WITHOUT CONTRAST Coronal and Sagittal reconstruction series were provided. One or more dose reduction techniques were used (e.g., Automated exposure control, adjustment of the mA and/or kV according to patient size, use of iterative reconstruction technique. RADIATION DOSE SUMMARY: CTDlvol: 44.99 mGy DLP: 796.11 mGycm COMPARISON: None. FINDINGS: Moderate global parenchymal atrophy. Periventricular white matter hypodensity likely representing chronic microvascular ischemia. The paranasal sinuses and mastoid air cells are clear. The calvarialvault and skull base are intact. CT/Brain/Head without Contrast IMPRESSION: NO ACUTE FINDINGS Reading Location: [id number] CC: Dr. Henry Florentino, ; No Primary Care Physician ~ Family Readiness Support Assistant: Signed [facility]05-21-2025 Procedure [facility] [address] [place] [address] Pacemaker Check Date of Service: 12/01/241713 MR#: [id number] Acct: [id number] Name: SOPHIA CORTES Hector Rep #: [id number] : 1940 From: Toya burciaga Age/Sex: 83/M Location[place] [facility] [place] Status: Signed Billing Codes ICD Device Billin ICD Dev Prog Eval, Dual Assessment and Plan Assessment and Plan (1) Ischemic cardiomyopathy: Status: Chronic (2) Presence of automatic implantable cardioverter-defibrillator: Status: Chronic Comment: [employer] ICD Dual Chamber (3) NSVT (nonsustained ventricular tachycardia): Status: Chronic 12/01/241713 > Date _ Toya Chandlerignneal Signature: Date (if applicable) CC: ~ [facility]05-21-2025 Evaluation note* Diagnosis Onset Date Resolution Status Admit Date Ischemic cardiomyopathy chronic M ay 2024 1:55pm NSVT (nonsustained ventricular tachycardia) chronic November 1:55pm 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, 2012 chronic Ma y 2024 1:55pm Bradycardia chronic December 01 1:56pm Essential hypertension chronic Ma y 2024 1:56pm History of coronary artery stent placement July 28, 2009 chronic December 01 1:56pm HLD (hyperlipidemia) chronic December 01, 2024 1:56pm Ischemic cardiomyopathy chronic M ay 2024 1:56pm Memory deficit chronic December 01, 2024 1:56pm NSVT (nonsustained ventricular tachycardia) chronic November 1:56pm Paroxysmal atrial flutter chronic December 01, 2024 1:56pm 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, 2012 chronic Ma y 2024 1:56pm [facility] Work Phone: [phone] Evaluation note* Diagnosis Onset Date Resolution Status Admit Date Ischemic cardiomyopathy chronic M ay 2024 1:55pm NSVT (nonsustained ventricular tachycardia) chronic November 1:55pm 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, 2012 chronic Ma 2024 1:55pm Bradycardia chronic December 01 1:56pm Essential hypertension chronic Ma y 2024 1:56pm History of coronary artery stent placement July 28, 2009 chronic December 01 1:56pm HLD (hyperlipidemia) chronic December 01, 2024 1:56pm Ischemic cardiomyopathy chronic M ay 2024 1:56pm Memory deficit chronic December 01, 2024 1:56pm NSVT (nonsustained ventricular tachycardia) chronic November 1:56pm Paroxysmal atrial flutter chronic December 01, 2024 1:56pm 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, 2012 chronic Ma y 2024 1:56pm Adult failure to thrive acute J milli 5 1:45pm Dementia acute February 08 1:45pm Weakness acute February 08 1:45pm Memory deficit chronic February 08, 2025 1:45pm [facility] Work Phone: [phone]) [phone] Discharge summary Author Isadora Arndt [facility] Note Date/Time February 10, 2025 3:37 pm [facility] Medical Records Department [address] [place] [address] Transfer to [facility] MR#: [id number] Acct: [id number] Name: SOPHIA CORTES Rep #:[id number] : 1940 84 From: Isadora Arndt MD PCP: Care Physician,No Primary Status :ADM MARCELA Certification of patient admission REQUIRED AT TIME OF ADMISSION. I CERTIFY THAT POST-HOSPITAL ECF SERVICES ARE REQUIRED TO BE GIVEN ON AN IN-PATIENT BASIS BECAUSE OF THE ABOVE NAMED PATIENT'S NEED FOR GROUP HOME CARE ON A CONTINUING BASIS FOR THE CONDITION(S) FOR WHICH HE/SHE WAS RECEIVING IN-PATIENT HOSPITAL SERVICES PRIOR TO HIS/HER TRANSFER TO THE [facility]. 02/10/25 1105<Electronically signed by Isadora Arndt MD> Diet Diet Order/Speech Therapy: INPATIENT Hospital Diet / Speech Therapy Order(s) 02/09/25 08:41 Diet: Regular - General Food consistency:: Regular Liquid Consistency:: Regular/Thin Routine Orders/Code Status Enema Type: Fleetz Enema Frequency: Daily PRN DC O2, CPAP, BIPAP needs Home O2 Discharge instructions: No Therapies Weight Bearing: Weight bearing as tolerated Physical Therapy: Eval and Treat Occupational Therapy: Eval and Treat Problem/Diagnosis (1) Adult failure to thrive: Status: Acute Code(s): R62.7 - Adult failure to thrive (2) Dementia: Status: Acute Code(s): F03.90 - Unspecified dementia, unspecified severity, without behavioral disturbance, psychotic disturbance, mood disturbance, and anxiety (3) Weakness: Status: Acute Code(s): R53.1 - Weakness (4) Memory deficit: Status: Chronic Code(s): R41.3 - Other amnesia Plan #Debility and adult failure to thrive in the setting of dementia * PT/OT on board. BMI is only 19.6. * Nutrition also consulted. * fall precautions. * on donepezil and memantine * * #Scrotal edema: scrotum edematous. NOn tender and nonerythematous. Get scrotal ultrasound #Depression and anxiety: was recently seen on 01/23/2025 in ED for suicidal ideation. On risperdal. CUrrently not suicidal. #Sinus bradycardia: HR in the 40s-50s. On coreg, with dose reduced to 3.125mg bid. Will monitor #History of CAD s/p stent: had stents in 2009. Last echo in 2019 showed EF of 40% with stage I diastolic dysfunction. On aspirin and statin. Statin dose reduced to 40mg daily in light of advanced age. #HFrEF with ICD: has known EF of 40%. On coreg. Lisinopril held #Hypertension: on coreg. Lisinopril on hold. #Pancytopenia * wbc is 3.8 and Hb is 10.6; platelets are 102. Will monitor closely for now. Has been like this for the whole of January this year. * #History of paroxysmal afib: coreg dose decreased due to bradycardia. DVT prophylaxis: lovenox COde status: DNRCCA no intubation Allergies/Procedures Done in Hospital Allergies No Known Allergies Allergy (Verified 02/08/25 11:55) Procedures: None Type of Care/Length of Stay Estimated LOS: Convalescent Care Less Than 30 days Type of Care Needed: Skilled Rehab Potential: Fair Prognosis: Fair Additional Orders/Day of Discharge Day of Discharge: 02/10/25 Dietary and Speech Recommendations Dietitian Recommendations/Changes: Will liberalize diet to Regular in view of signs/symptoms of malnutrition. Will add 120mL ensure plus HP 4 times per day w/ medpass. Additional ONS as needed once PO better established with meals. Discharge Plan Admission Admit Date/Time: 02/08/25 13:45 Primary Reason for Your Visit: debility and weakness, failure to thrive. Attending Provider: Isadora Arndt Primary Care Provider: Care Physician,No Primary Consulting Providers: Ajith Zimmer Instructions Patient Instructions: ED Hydrocele Non-Communicating Type, ED Weakness Uncertain Cause Discharge Orders/Prescriptions Prescriptions: New carvedilol 3.125 mg Tablet 3.125 mg PO BIDCM Qty: 60 2RF Continued aspirin [Adult Aspirin Regimen] 81 mg tablet,delayed release (DR/EC) 81 mg PO QDAY atorvastatin 80 mg tablet 80 mg PO QDAY Qty: 90 3RF magnesium hydroxide [Dulcolax (magnesium hydroxide)] 400 mg/5 mL suspension 30 ml PO BID PRN (Reason: constipation) acetaminophen 325 mg capsule 650 mg PO Q6H PRN (Reason: pain) donepezil 10 mg tablet 10 mg PO DAILY risperidone 1 mg tablet 1 mg PO BID memantine 5 mg tablet 5 mg PO BID lisinopril 10 mg tablet 10 mg PO QDAY Qty: 90 3RF Discontinued carvedilol 12.5 mg tablet 12.5 mg PO BID Qty: 180 3RF Referrals / Follow Up: Lukasz Gan MD [Med Staff - Active Staff] - Within 1 Month (see to establish PCP care) Chester Cool MD [Med Staff - Active Staff] - Within 1 Month (see to establish care for hydrocele) Care Physician,No Primary [Primary Care Provider] - Disposition Disposition (needs filled in before D/C Order can be placed): [facility] Facility 02/10/25 1105 <Electronically signed by Isadora Arndt MD> Cosigner Signature (if applicable): CC: Dr. Ajith Zimmer, DO; No Primary Care Physician ~ [facility] Work Phone: [phone] 997-535801-10-2013 Evaluation note* Diagnosis Onset Date Resolution Status Paroxysmal atrial flutter [place] Bradycardia chronic Ischemic cardiomyopathy marine architect mariah Presence of automatic implan table cardioverter-defibrillator July 23, 2012 chronic Essential hypertension acute Paroxysmal atrial flutter [place] Bradycardia chronic History of coronary artery stent placement July chronic HLD (hyperlipidemia) chronic Ischemic cardiomyopathy marine architect mariah Presence of automatic implan table cardioverter-defibrillator July 23, 2012 [facility] Work Phone: [phone]) 784-963201-10-2013 Evaluation note* Diagnosis Onset Date Resolution Status Paroxysmal atrial flutter [place] Ischemic cardiomyopathy marine architect mariah Presence of automatic implan table cardioverter-defibrillator July 23, 2012 chronic Essential hypertension acute Memory deficit acute NSVT (nonsustained ventricular tachycardia) acute Paroxysmal atrial flutter [place] Bradycardia chronic History of coronary artery stent placement July chronic HLD (hyperlipidemia) chronic Ischemic cardiomyopathy marine 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 mariah Presence of automatic implan table cardioverter-defibrillator July 23, 2012 [facility] Work Phone: [phone]) 898-284801-15-2010 Evaluation note* Diagnosis Onset Date Resolution Status Admit Date Bradycardia chronic December 01 1:56pm Essential hypertension chronic Ma y 2024 1:56pm History of coronary artery stent placement July 28, 2009 chronic December 01 1:56pm HLD (hyperlipidemia) chronic December 01, 2024 1:56pm Ischemic cardiomyopathy chronic M ay 2024 1:56pm Memory deficit chronic December 01, 2024 1:56pm NSVT (nonsustained ventricular tachycardia) chronic November 1:56pm Paroxysmal atrial flutter chronic December 01, 2024 1:56pm 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, 2012 chronic Ma y 2024 1:56pm [facility] Work Phone: Reason for referral (narrative)No reason for referral information available[facility] Work Phone: Chief Complaint and Reason for Visit Chief Complaint Pacer Check Remote 3 M FU/ Sees Gina at 1:30pm E-ORDER Reason for Visit Paroxysmal [...] 2024 1:55p m 1 Y FU/GINA @ December 01, 2024 1:56p m Chief Complaint Admit Date Pacer Check Remote December 01, 2024 9:00a m 5 M FU/JHR @ 2:30 December 01, 2024 1:55p m 1 Y FU/GINA @ December 01, 2024 1:56p m suicidal January 22, 2025 11:4 8pm Chief Complaint Admit Date Pacer Check Remote December 01, 2024 9:00a m 5 M FU/JHR @ 2:30 December 01, 2024 1:55p m 1 Y FU/GINA @ December 01, 2024 1:56p m suicidal January 22, 2025 11:4 8pm ADULT FAILURE TO THRIVE February 08, 2025 1:45pm Chief Complaint Admit Date Pacer Check Remote December 01, 2024 9:00a m 5 M FU/JHR @ 2:30 December 01, 2024 1:55p m 1 Y FU/GINA @ 2 December 01, 2024 1:56p m suicidal January 22, 2025 11:4 8pm ADULT FAILURE TO THRIVE February 08, 2025 1:45pm ADULT FAILURE TO THRIVE February 09, 2025 9:36am ADULT FAILURE TO THRIVE February 10, 2025 11:05am Reason for Visit Admit Date Ischemic cardiomyopathy [...] implantable cardio verter-defibrillator December 01, 2024 1:56pm Adult failure to thrive February 08, 2025 1:45pm Dementia February 08, 2025 1:45 pm Weakness February 08, 2025 1:45 pm Memory deficit February 08, 2025 1:45 pm Family History No Family History Records Found Relationship Condition Age at Onset Recorded Date/T meryl mother Coronary artery disease Unknown Myocardial infarction Unknown aunt Coronary artery disease Unknown uncle Coronary artery disease Unknown Advance Directives No Advanced Directives Records Found Advance Directive Response Recorded Date/ Time Do you have a Healthcare Power of Treating Plant Pumper? No January 22, 2025 11:50pm Advance Directive Response Recorded Date/ Time Do you have a Healthcare Power of Treating Plant Pumper? No January 22, 2025 11:50pm Do you have a Healthcare Power of Treating Plant Pumper? No February 08, 2025 12:21pm Advance Directive Response Recorded Date/ Time Do you have a Healthcare Power of Treating Plant Pumper? No January 22, 2025 11:50pm Do you have a Healthcare Power of Treating Plant Pumper? No February 08, 2025 3:39pm Summary Purpose Additional Source Comments Care Teams (unrecognized sec [...] Attending Provider Active Start: M ay 2024 End: December 01, 2024 Team Status: Inactive Member Role Status Dates Marcelino Arizmendi TROLLEY CAR OVERHAULER, TROLLEY [employer] OVERHAULER-C Attending Provider Active S tart: December 01, [...] Inactive Member Role Status Dates Marcelino Arizmendi TROLLEY CAR OVERHAULER, TROLLEY CAR OVERHAULER-C Attending Provider Active No Primary Care Physician Primary Care Provider, Refer ring Provider Active Team Status: Inactive Member Role Status Dates No Primary Care Physician Primary Care Provider Active Dr. Wolfgang Conde MD Attending Provider Active Team Status: Inactive Member Role Status Dates No Primary Care Physician Primary Care Provider Active Marcelino Arizmendi [employer]OLLEY [employer] OVERHAULER, TROLLEY [employer] OVERHAULER-C Attending Provider, Referring Pro vider Active Team Status: Active Member Role Status Dates No Primary Care Physician Family Provider Active Team Status: Inactive Member Role Status Dates No Primary Care Physician Primary Care Provider, Refer ring Provider Active Toya Herrera Attending Provider Active Team Status: Inactive Member Role Status Dates No Primary Care Physician Primary Care Provider, Refer ring Provider Active Marcelino Arizmendi TROLLEY [employer] OVERHAULER, TROLLEY [employer] OVERHAULER-C Attending Provider Active Team Status: Active Member [...] December 01, 2024 Team Status: Active Member Role/Relationship Status Dates No Primary Care Physician Primary Care Provider Active Team Status: Inactive Member Role/Relationship Status Dates Dr. Wolfgang Conde MD Attending Provider Active S tart: December 01, 2024 End: December 01, 2024 Team Status: Inactive Member Role/Relationship Status Dates Dr. Wolfgang Conde MD Attending Provider Active S tart: December 01, 2024 End: December 01, 2024 Dr. Wolfgang Conde MD Referring Provider Active S tart: December 01, 2024 End: December 01, 2024 Team Status: Inactive Member Role/Relationship Status Dates Marcelino Arizmendi TROLLEY [employer] OVERHAULER, TROLLEY CAR OVERHAULER-C Attending Provider Active S tart: December 01, 2024 End: December 01, 2024 No Primary Care Physician Primary Care Provider Active Start: December 01, 2024 End: December 01, 2024 No Primary Care Physician Referring Provider Active Start: December 01, 2024 End: December 01, 2024 Team Status: Inactive Member Role/Relationship Status Dates Dr. Henry Florentino , DO Emergency Provider Activ e Start: January 22, 2025 End: January 23, 2025 No Primary Care Physician Primary Care Provider Active Start: January 22, 2025 End: January 23, 2025 Team Status: Inactive Member Role/Relationship Status Dates Dr. Henry Florentino , DO Attending Provider Activ e Start: January 22, 2025 End: January 23, 2025 Dr. Henry Florentino , DO Emergency Provider Activ e Start: January 22, 2025 End: January 23, 2025 No Primary Care Physician Primary Care Provider Active Start: January 22, 2025 End: January 23, 2025 Team Status: Active Member Role/Relationship Status Dates No Primary Care Physician Primary Care Provider Active Start: February 08, 2025 Dr. Michael Allen , DO Emergency Provider Active S tart: February 08, 2025 Dr. Ajith Zimmer , DO Admit Provider Active Start: February 08, 2025 Dr. Ajith Zimmer , DO Attending Provider Active Start: February 08, 2025 Team Status: Inactive Member Role/Relationship Status Dates No Primary Care Physician Primary Care Provider Active Start: February 08, 2025 End: February 10, 2025 Dr. Michael Allen , Emergency Provider Active S tart: February 08, 2025 End: February 10, 2025 Dr. Ajith Zimmer DO Admit Provider Active Start: February 08, 2025 End: February 10, 2025 Dr. Ajith Zimmer DO Other Provider Active Start: February 08, 2025 End: February 10, 2025 Dr. Isadora Arndt MD Attending Provider Active Start: February 08, 2025 End: February 10, 2025 Team Status: Active Member Role/Relationship Status Dates No Primary Care Physician Primary Care Provider Active Start: February 09, 2025 Dr. Michael Allen DO Emergency Provider Active S tart: February 09, 2025 Dr. Ajith Zimmer DO Admit Provider Active Start: February 09, 2025 Dr. Ajith Zimmer DO Other Provider Active Start: February 09, 2025 Dr. Isadora Arndt MD Attending Provider Active Start: February 09, 2025 Dr. Isadora Arndt MD Other Provider Active St art: February 09, 2025 Team Status: Active Member Role/Relationship Status Dates No Primary Care Physician Primary Care Provider Active Start: February 10, 2025 Dr. Michael Allen DO Emergency Provider Active S tart: February 10, 2025 Dr. Ajith Zimmer DO Admit Provider Active Start: February 10, 2025 Dr. Ajith Zimmer DO Other Provider Active Start: February 10, 2025 Dr. Isadora Arndt MD Attending Provider Active Start: February 10, 2025 Dr. Isadora Arndt MD Other Provider Active St art: February 10, 2025 Goals (unrecognized section and content) Goals may [...] ized section and content) DATE CREATED AUTHOR 02/26/2025 [facility] FOR RECORDS PERTAINING TO PATIENTS WHO ARE [...] BE BASED ON THE PRIMARY CLINICAL RECORDS. [employer] [facility]. provides no warranty or guarantee of the accuracy or completeness of information in this document.
[2025-03-02 07:37] LABS: Hematocrit 32.8 % (40-54); Hemoglobin 11.0 g/dL (13.0-16.5); Mean Corp Hgb Conc 33.5 g/dL (32-36); Mean Corpuscular Volume 93.7 fL (80-94); Mean Platelet Vol. 11.8 fl (6.2-12.0); Platelet Count 113 K/mm3 (150-450); RBC Distribution Width CV 13.1 % (11.6-14.6); RBC Distribution Width SD 44.6 fl (35.1-43.9); Red Blood Count 3.50 M/mm3 (4.6-6.2); White Blood Count 6.8 K/mm3 (4.4-11.0)
== END ==
LOC: OLS.WCC 05:00
PROVIDERS: Visit Provider Family Medicine
DX: R00.1 Bradycardia, unspecified (principal); I48.92 Unspecified atrial flutter; Z95.0 Presence of cardiac pacemaker; N17.0 Acute kidney failure with tubular necrosis
CPT/HCPCS: 85027

== ENCOUNTER → 2025-04-01 | Outpatient (REF) | payer MEDICARE, SELFPAY ==
[2025-04-01 07:40] LABS: Hematocrit 25.5 % (40-54); Hemoglobin 8.7 g/dL (13.0-16.5); Mean Corp Hgb Conc 34.1 g/dL (32-36); Mean Corpuscular Volume 95.1 fL (80-94); Mean Platelet Vol. 11.1 fl (6.2-12.0); Platelet Count 122 K/mm3 (150-450); RBC Distribution Width CV 15.0 % (11.6-14.6); RBC Distribution Width SD 51.4 fl (35.1-43.9); Red Blood Count 2.68 M/mm3 (4.6-6.2); White Blood Count 3.3 K/mm3 (4.4-11.0)
[2025-04-01 07:57] LABS: Anion Gap 10 (5-15); BUN 10 mg/dL (4-19); BUN/Creat Ratio 10.6 RATIO (10-20); Calcium,Total 8.5 mg/dL (7.6-11.0); Carbon Dioxide 23.9 mmol/L (21.0-32.0); Chloride 102 mmol/L (98-108); Cholesterol 82 mg/dL (<=200); Glucose 76 mg/dL (70-99); Low Density Lipoprotein Calc. 22 mg/dL; Potassium 3.8 mmol/L (3.3-5.1); Triglycerides 80 mg/dL; Very Low Density Lipoprotein 16 mg/dL (5-40); cholesterol:hdl ratio screen 1.84
== END ==
LOC: OLS.WCC 05:00
PROVIDERS: Visit Provider Family Medicine
DX: I48.91 Unspecified atrial fibrillation (principal); I10 Essential (primary) hypertension; E78.5 Hyperlipidemia, unspecified; I25.10 Atherosclerotic heart disease of native coronary artery without angina pectoris; I51.3 Intracardiac thrombosis, not elsewhere classified; N17.0 Acute kidney failure with tubular necrosis; R62.7 Adult failure to thrive
CPT/HCPCS: 36415; 80048; 80061; 85027

== ENCOUNTER → 2025-04-04 | Outpatient (REF) | payer MEDICARE, SELFPAY ==
[2025-04-04 09:14] LABS: Hematocrit 25.3 % (40-54); Hemoglobin 8.5 g/dL (13.0-16.5); Mean Corp Hgb Conc 33.6 g/dL (32-36); Mean Corpuscular Volume 96.6 fL (80-94); Mean Platelet Vol. 11.3 fl (6.2-12.0); Platelet Count 111 K/mm3 (150-450); RBC Distribution Width CV 15.4 % (11.6-14.6); RBC Distribution Width SD 54.6 fl (35.1-43.9); Red Blood Count 2.62 M/mm3 (4.6-6.2); White Blood Count 4.2 K/mm3 (4.4-11.0)
[2025-04-04 09:48] LABS: Anion Gap 9 (5-15); BUN 15 mg/dL (4-19); BUN/Creat Ratio 14.5 RATIO (10-20); Calcium,Total 7.9 mg/dL (7.6-11.0); Carbon Dioxide 23.6 mmol/L (21.0-32.0); Chloride 101 mmol/L (98-108); Cholesterol 76 mg/dL (<=200); Glucose 78 mg/dL (70-99); Low Density Lipoprotein Calc. 20 mg/dL; Potassium 3.8 mmol/L (3.3-5.1); Triglycerides 52 mg/dL; Very Low Density Lipoprotein 10 mg/dL (5-40); cholesterol:hdl ratio screen 1.68
== END ==
LOC: OLS.WCC 04:00
PROVIDERS: PCP Family Medicine; Referring Provider Family Medicine; Visit Provider Family Medicine
DX: I10 Essential (primary) hypertension (principal); E78.5 Hyperlipidemia, unspecified; R62.7 Adult failure to thrive; Z79.899 Other long term (current) drug therapy
CPT/HCPCS: 36415; 80048; 80061; 85027

== ENCOUNTER → 2025-05-03 05:00 | Outpatient (REF) | payer MEDICARE, SELFPAY ==
--- OUTSIDE RECORDS SUMMARY | 2025-05-03 04:00 | XMS RPT_ITS | CCD ---
Author Organization [facility] Care Team Providers Care Healthcare Manager Name Role Phone CHERYL Herrera, Gina Arteaga Unavailable Unavailable CHERYL Herrera, Gina Arteaga Unavailable Unavailable Saritha Ram Unavailable Unavailable MD Conde Cyril S Unavailable CHERYL Herrera, Gina Arteaga Unavailable Unavailable Alisia Vasquez Unavailable Mary LUNA, Mine Lugo Unavailable Unavailable Leanna, Saritha Y Unavailable Unavailable CHERYL Herrera, Gina Arteaga Unavailable Unavailable Leanna, Thaddeusumi Y Unavailable Unavailable Care Physician, No Primary Primary Care Provider Unavailable Dr. Wolfgang Conde Attending Provider [phone] Roof CURTAIN FITTER, CURTAIN FITTER-C Marcelino Johnson Attending Provider Care Physician, No Primary Referring Provider Un available Care Physician, No Primary Primary Care Provider Unavailable Care Physician, No Primary Referring Provider Un available Toya Herrera Attending Provider Unavailable Roof CURTAIN FITTER, CURTAIN FITTER-C Marcelino Johnson Attending Provider Dr. Wolfgang Conde Attending Provider [phone] Wolfgang Conde Referring Provider [phone] Care Physician, No Primary Primary Care Provider Unavailable Care Physician, No Primary Referring Provider Un available Toya Herrera Attending Provider Unavailable Roof CURTAIN FITTER-CMarcelino Attending Provider Dr. Wolfgang Conde MD Attending Provider [phone] Dr. Wolfgang Conde MD Referring Provider Care Physician, No Primary Primary Care Provider Unavailable Care Physician, No Primary Referring Provider Un available Dr. Henry Florentino DO Emergency Provider Chadd ALVA Dr. Henry Attending Provider Alejandro DO, Dr. Rodriguez Emergency Provider Goran ALVA, Dr. Canseco Admit Provider Goran ALVA, Dr. Canseco Attending Provider Groan ALVA, Dr. Canseco Other Provider Hair REZA, Dr. Isadora Tirado Attending Provider Hair REZA, Dr. Isadora Tirado Other Provider Care Physician, No Primary Referring Unava ilable Care Physician, No Primary Primary Care Unava ilable Marcelino Arizmendi Attending Unavailable Marcelino Moreno Attending Unavailable Care Physician, No Primary Primary Care Unava ilable Marcelino Moreno Attending Unavailable Care Physician, No Primary Primary Care Unava ilable Ajith Zimmer Admitting Unavailable Ajith Zimmer Consulting Unavailable Isadora Arndt Attending Unavailable Care Physician, No Primary Primary Care Unava ilable Ajith Zimmer Consulting Unavailable Ajith Zimmer Admitting Unavailable Isadora Arndt Attending Unavailable Care Physician, No Primary Primary Care Unava ilable Isadora Arndt Consulting Unavailable Ajith Zimmer Attending Unavailable Care Physician, No Primary Primary Care Unava ilable Care Physician, No Primary Referring Unava ilable Kyleigh, Marcelino H Attending Unavailable EltonWolfgang layne Attending Unavailable Care Physician, No Primary Primary Care Unava ilable EltonWolfgang layne Attending Unavailable Elton, [place] Referring Unavailable Care Physician, No Primary Primary Care Unava ilable Petros Conderil Attending Unavailable Care Physician, No Primary Primary Care Unava ilable Care Physician, No Primary Referring Unava ilable Marcelino Arizmendi Attending Unavailable Care Physician, No Primary Primary Care Unava ilable Henry Florentino Attending Unavailabl e Wolfgang Conde Attending Unavailable Elton, [place] Referring Unavailable Care Physician, No Primary Primary Care Unava ilable Care Physician, No Primary Primary Care Unava ilable Marcelino Moreno Attending Unavailable Marcelino Moreno Referring Unavailable Marcelino Moreno Primary Care Unavailable Marcelino Moreno Attending Unavailable Medications Current Medications Medication Drug Class(es) Dates Sig (Normalized) Sig (Original) acetaminophen 325 mg oral capsule (2 sources) Start: 02-08-2025 take 2 capsules by mouth every six hours as needed for pain Acetaminophen 325 mg capsule Active 650 mg PO EVERY 6 HOURS as needed for pain February 08, 2025 12:00am aspirin 81 mg delayed release oral tablet (20 sources) Nonsteroidal Anti-inflammatory Drug Start: 07-23-2017 take 1 tablet by mouth once daily Aspirin (Adult Aspirin Regimen) 81 mg tablet,delayed release (DR/EC) Active 81 mg PO daily July 23, 2017 1:00am Start: 11-20-2010 take 1 tablet by cydney th once daily ASPIRIN 81 MG TABS One tablet by mouth daily ASPIRIN [id number] Deepak Dawson MD Start: 11-20-2010 take 1 tablet by cydney th once daily ASPIRIN 81 MG TABS One tablet by mouth daily ASPIRIN [id number] Tricia Gomez Start: 11-20-2010 take 1 tablet by cydney th once daily ASPIRIN EC 81 MG TBEC One tablet by mouth daily ASPIRIN [id number] Jeimy Mendez RN carvedilol 3.125 mg oral [...] One tablet by mouth twice daily CARVEDILOL [id number] Wolfgang Conde MD donepezil hydrochloride 10 mg [...] hydrochloride 5 mg oral tablet (2 sources) K-spednu-R-asparta te Receptor Antagonist Start: 02-08-2025 take 1 [...] One tablet by mouth daily ATORVASTATIN CALCIUM [id number] Wolfgang Conde MD clopidogrel 75 mg oral [...] One tablet by mouth daily CLOPIDOGREL BISULFATE [id number] JONG BeltranC lisinopril 10 mg oral tablet (20 sources) [...] TABS One tablet by mouth daily LISINOPRIL [id number] Wolfgang Conde MD warfarin sodium 1 mg oral tablet (20 sources) Vitamin K Antagonist Start: 11-20-2010 End: 10-11-2011 take 1 tablet by mouth once daily in the evening, then take 2.5 tablets by mouth, then take 3.5 tablets by mouth COUMADIN 1 MG TABS 1 tablet by mouth every evening with a 2.5mg tablet to = 3.5 WARFARIN SODIUM [id number] Tricia Gomez Start: 11-20-2010 End: 10-11-2011 take 1 tablet by mouth once daily in the evening, then take 1 tablet by mouth COUMADIN 2.5 MG TABS 1 tablet by mouth every evening with a 1mg tablet to - 3.5 mg WARFARIN SODIUM [id number] Wolfgang Conde MD Problems Active Problems Problem Classification Problem Date Documented Da te Episodic/Chronic Acute and unspecified renal failure (1 source) Acute kidney failure with tubular necrosis; Translations: [Acute kidney failure with tubular necrosis] Onset: 04-04-2025 Episodic Acute myocardial infarction (20 sources) Non-ST elevation (NSTEMI) myocardial infarction; Translations: [Acute subendocardial infarction] Onset: 11-20-2010 11-20-2010 Chronic Cardiac dysrhythmias (20 sources) Bradycardia; Translations: [Paroxysmal atrial flutter] Onset: 06-22-2013 06-22-2013 Chronic Cardiac dysrhythmias (19 sources) Bradycardia; Translations: [Bradycardia, unspecified] Onset: 05-23-2024 07-23-2017 Episodic Conduction disorders (20 sources) Presence of automatic (implantable) cardiac defibrillator; Translations: [Automatic implantable cardiac defibrillator in situ] Onset: 07-23-2012 07-30-2012 Chronic Comment on above: [employer]en ICD Dual Chamber Coronary atherosclerosis and other heart disease (20 sources) Coronary arteriosclerosis; Translations: [Coronary atherosclerosis] Onset: 07-28-2009 Resolved: 12-13-2015 11-20-2010 Chronic Comment on above: COD-NXS-Oceb and Mid LAD w/ Veriflex BMS 3.0 x 20 mm and Micro Timber Cutter BMS 2.5 x 18 mm 07/28/09 Delirium, dementia, and amnestic and other cognitive disorders (4 sources) Dementia; Translations: [Unspecified dementia without behavioral disturbance] Onset: 02-10-2025 02-08-2025 Chronic Disorders of lipid metabolism (20 sources) Hyperlipidemia; Translations: [Hyperlipidemia, unspecified] Onset: 06-10-2012 06-10-2012 Chronic Essential hypertension (17 sources) Essential hypertension; Translations: [Essential (primary) hypertension] Onset: 04-04-2025 07-17-2023 Chronic Malaise and fatigue (5 sources) Asthenia; Translations: [Weakness] Onset: 02-10-2025 02-08-2025 Episodic Other aftercare (7 sources) Other terminal superintendent (current) drug therapy; Translations: [Other terminal superintendent (current) drug therapy] Onset: 11-20-2010 11-20-2010 Episodic Other and ill-defined heart disease (6 sources) Mural thrombus of heart; 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, not elsewhere classified] Onset: 11-20-2010 11-20-2010 Chronic Other and ill-defined heart disease (1 source) Intracardiac thrombosis, not elsewhere classified; 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, not elsewhere classified] Onset: 04-04-2025 Chronic Other nutritional; endocrine; and metabolic disorders (3 sources) Adult failure to thrive syndrome; Translations: [Adult failure to thrive] 02-08-2025 Episodic Other nutritional; endocrine; and metabolic disorders (1 source) Adult failure to thrive; Translations: [Adult failure to thrive] Onset: 04-04-2025 Episodic Apple-; endo-; and myocarditis; cardiomyopathy (10 [...] (4 sources) Long-term drug therapy; Translations: [Other terminal superintendent (current) drug therapy] Onset: 11-20-2010 11-20-2010 Unclassified (1 source) see to establish PCP care Unclassified (1 source) see to establish care for hydrocele Unclassified (1 source) Other ventricular tachycardia; Translations: [Other ventricular tachycardia] Onset: 12-20-2024 Past or Other Problems Problem Classification Problem Date Documented Date Episodic/Chronic Complications of surgical procedures or medical care (10 sources) Iatrogenic pneumothorax; Translations: [Other pneumothorax] Onset: 3 07-27-2012 Episodic Coronary atherosclerosis and other heart disease (2 sources) Presence of coronary angioplasty implant and graft; Translations: [Percutaneous transluminal coronary angioplasty status] Onset: 0 07-17-2023 Episodic Nonspecific chest pain (20 sources) Precordial pain; Translations: [Precordial pain] Onset: 1 Resolved: 6 11-20-2010 Episodic Other circulatory disease (20 sources) Electrocardiogram abnormal; Translations: [Abnormal electrocardiogram [ECG] [EKG]] Onset: 1 Resolved: 6 11-20-2010 Episodic Results Test Name Value Interpretation Reference Range Facility Basic Metabolic Profile (BMP )on 04-04-2025 BUN/CRE 14.5 RATIO Normal 10- [facility] Comment on above: Order Comment: 110.1 Performed By: #### L 505.5000, L100.0100, L500.2500, L501.9100 #### [facility] [address] [place], [address] Calcium [Mass/Vol] 7.9 mg/dL Normal 7.6-11.0 [facility] Comment on above: Order Comment: 110.1 Performed By: #### L 505.5000, L100.0100, L500.2500, L501.9100 #### [facility] [address] [place], [address] Chloride [Moles/Vol] 101 mmol/L Normal 98-108 [facility] Comment on above: Order Comment: 110.1 Performed By: #### L 505.5000, L100.0100, L500.2500, L501.9100 #### [facility] [address] [place], [address] CO2 [Moles/Vol] 23.6 mmol/L Normal 21.0-32.0 [facility] Comment on above: Order Comment: 110.1 Performed By: #### L 505.5000, L100.0100, L500.2500, L501.9100 #### [facility] [address] [place], [address] Creatinine [Mass/Vol] 1.00 mg/dL Normal 0.70-1.20 [facility] Comment on above: Order Comment: 110.1 Performed By: #### L 505.5000, L100.0100, L500.2500, L501.9100 #### [facility] [address] [place], [address] GAP 9 Normal 5-15 [facility] Comment on above: Order Comment: 110.1 Performed By: #### L 505.5000, L100.0100, L500.2500, L501.9100 #### [facility] [address] [place], [address] GFR/1.73 sq M.predicted among non-blacks MDRD (S/P/Bld) [Vol rate/Area] 75 mL/min/{1.73_m2} Normal >60 [facility] Comment on above: Order Comment: 110.1 Result Comment: mL/m in/1.73m2 CKD-EPI Creatinine Equation (2020) Performed By: #### L 505.5000, L100.0100, L500.2500, L501.9100 #### [facility] [address] [place], [address] Glucose [Mass/Vol] 78 mg/dL Normal 70-99 [facility] Comment on above: Order Comment: 110.1 Performed By: #### L 505.5000, L100.0100, L500.2500, L501.9100 #### [facility] [address] [place], [address] Potassium [Moles/Vol] 3.8 mmol/L Normal 3.3-5.1 [facility] Comment on above: Order Comment: 110.1 Performed By: #### L 505.5000, L100.0100, L500.2500, L501.9100 #### [facility] [address] [place], [address] Sodium [Moles/Vol] 134 mmol/L Normal 133-145 [facility] Comment on above: Order Comment: 110.1 Performed By: #### L 505.5000, L100.0100, L500.2500, L501.9100 #### [facility] [address] [place], [address] Urea nitrogen [Mass/Vol] 15 mg/dL Normal 4-19 [facility] Comment on above: Order Comment: 110.1 Performed By: #### L 505.5000, L100.0100, L500.2500, L501.9100 #### [facility] [address] [place], [address] CBC-Complete Blood Cnt No Lynne fuentes 04-04-2025 Erythrocyte distribution width (RBC) [Ratio] 15.4 % High 11.6-14.6 [facility] Comment on above: Order Comment: 110.1 Performed By: #### L 505.5000, L100.0100, L500.2500, L501.9100 #### [facility] [address] [place], [address] Hematocrit (Bld) [Volume fraction] 25.3 % Low 40-54 [facility] Comment on above: Order Comment: 110.1 Performed By: #### L 505.5000, L100.0100, L500.2500, L501.9100 #### [facility] [address] [place], [address] Hemoglobin (Bld) [Mass/Vol] 8.5 g/dL Low 13.0-16.5 [facility] Comment on above: Order Comment: 110.1 Performed By: #### L 505.5000, L100.0100, L500.2500, L501.9100 #### [facility] [address] [place], [address] MCH (RBC) [Entitic mass] 32.4 pg High 27.0-32.0 [facility] Comment on above: Order Comment: 110.1 Performed By: #### L 505.5000, L100.0100, L500.2500, L501.9100 #### [facility] [address] [place], [address] MCHC (RBC) [Mass/Vol] 33.6 g/dL Normal 32-36 [facility] Comment on above: Order Comment: 110.1 Performed By: #### L 505.5000, L100.0100, L500.2500, L501.9100 #### [facility] [address] [place], [address] MCV (RBC) [Entitic vol] 96.6 fL High 80-94 [facility] Comment on above: Order Comment: 110.1 Performed By: #### L 505.5000, L100.0100, L500.2500, L501.9100 #### [facility] [address] [place], [address] Platelet mean volume (Bld) [Entitic vol] 11.3 fL Normal 6.2-12.0 [facility] Comment on above: Order Comment: 110.1 Performed By: #### L 505.5000, L100.0100, L500.2500, L501.9100 #### [facility] [address] [place], [address] Platelets (Bld) [#/Vol] 111 10*3/uL Low 150-450 [facility] Comment on above: Order Comment: 110.1 Performed By: #### L 505.5000, L100.0100, L500.2500, L501.9100 #### [facility] [address] [place], [address] RBC (Bld) [#/Vol] 2.62 10*6/uL Low 4.6-6.2 [facility] Comment on above: Order Comment: 110.1 Performed By: #### L 505.5000, L100.0100, L500.2500, L501.9100 #### [facility] [address] [place], [address] RDW SD 54.6 fl High 35.1-43.9 [facility] Comment on above: Order Comment: 110.1 Performed By: #### L 505.5000, L100.0100, L500.2500, L501.9100 #### [facility] [address] [place], [address] WBC (Bld) [#/Vol] 4.2 10*3/uL Low 4.4-11.0 [facility] Comment on above: Order Comment: 110.1 Performed By: #### L 505.5000, L100.0100, L500.2500, L501.9100 #### [facility] [address] [place], [address] Lipid Profileon 04-04-2025 CHOL:HDL 1.68 Normal [facility] Comment on above: Order Comment: 110.1 Performed By: #### L 505.5000, L100.0100, L500.2500, L501.9100 #### [facility] [address] [place], [address] Cholesterol [Mass/Vol] 76 mg/dL Normal <=200 [facility] Comment on above: Order Comment: 110.1 Result Comment: Chol esterol level, Desirable <200 mg/dL Borderline high cholesterol 200-239 mg/dL High cholesterol >=240 mg/dL Recommendations of the NCEP Adult Treatment Panel for the following risk-cutoff thresholds for the [place] population. Performed By: #### L 505.5000, L100.0100, L500.2500, L501.9100 #### [facility] [address] [place], [address] Cholesterol in HDL [Mass/Vol] 45 mg/dL Normal [facility] Comment on above: Order Comment: 110.1 Result Comment: Jesusita onal Cholesterol Education Program (NCEP) guidelines: <40 mg/dL: Low HDL-cholesterol (major risk factor for CHD) >= 60 mg/dL: High HDL-cholesterol (negative risk factor for CHD) HDL-cholesterol is affected by a number of factors, e.g. smoking, exercise, hormones, sex and age. Performed By: #### L 505.5000, L100.0100, L500.2500, L501.9100 #### [facility] [address] [place], [address] Cholesterol in LDL [Mass/Vol] 20 mg/dL Normal [facility] Comment on above: Order Comment: 110.1 Result Comment: Bord zwngxg=093-255 mg/dL Higher Qsaj=692 mg/dL or greater Friedwald Equation for LDL-C Performed By: #### L 505.5000, L100.0100, L500.2500, L501.9100 #### [facility] [address] [place], [address] Cholesterol in VLDL [Mass/Vol] 10 mg/dL Normal 5-40 [facility] Comment on above: Order Comment: 110.1 Performed By: #### L 505.5000, L100.0100, L500.2500, L501.9100 #### [facility] [address] [place], [address] Triglyceride [Mass/Vol] 52 mg/dL Normal [facility] Comment on above: Order Comment: 110.1 Result Comment: The drugs N-Acetylcysteine and Metamizole may falsely depress this assay. Normal range: <150 mg/dL Borderline High: 150-199 mg/dL High: 200-499 mg/dL Very High: >500 mg/dL Performed By: #### L 505.5000, L100.0100, L500.2500, L501.9100 #### [facility] [address] [place], [address] Basic Metabolic Profile (BMP )on 04-01-2025 BUN/CRE 10.6 RATIO Normal 10-20 [facility] Comment on above: Order Comment: 110-1 Performed By: #### L 100.0500, L500.2500, L500.4100 #### [facility] [address] [place], [address] Calcium [Mass/Vol] 8.5 mg/dL Normal 7.6-11.0 [facility] Comment on above: Order Comment: 110-1 Performed By: #### L 100.0500, L500.2500, L500.4100 #### [facility] [address] [place], [address] Chloride [Moles/Vol] 102 mmol/L Normal 98-108 [facility] Comment on above: Order Comment: 110-1 Performed By: #### L 100.0500, L500.2500, L500.4100 #### [facility] [address] [place], [address] CO2 [Moles/Vol] 23.9 mmol/L Normal 21.0-32.0 [facility] Comment on above: Order Comment: 110-1 Performed By: #### L 100.0500, L500.2500, L500.4100 #### [facility] [address] [place], [address] Creatinine [Mass/Vol] 0.96 mg/dL Normal 0.70-1.20 [facility] Comment on above: Order Comment: 110-1 Performed By: #### L 100.0500, L500.2500, L500.4100 #### [facility] [address] [place], [address] GAP 10 Normal 5-15 [facility] Comment on above: Order Comment: 110-1 Performed By: #### L 100.0500, L500.2500, L500.4100 #### [facility] [address] [place], [address] GFR/1.73 sq M.predicted among non-blacks MDRD (S/P/Bld) [Vol rate/Area] 79 mL/min/{1.73_m2} Normal >60 [facility] Comment on above: Order Comment: 110-1 Result Comment: mL/m in/1.73m2 CKD-EPI Creatinine Equation (2020) Performed By: #### L 100.0500, L500.2500, L500.4100 #### [facility] [address] [place], [address] Glucose [Mass/Vol] 76 mg/dL Normal 70-99 [facility] Comment on above: Order Comment: 110-1 Performed By: #### L 100.0500, L500.2500, L500.4100 #### [facility] [address] [place], [address] Potassium [Moles/Vol] 3.8 mmol/L Normal 3.3-5.1 [facility] Comment on above: Order Comment: 110-1 Performed By: #### L 100.0500, L500.2500, L500.4100 #### [facility] [address] [place], [address] Sodium [Moles/Vol] 135 mmol/L Normal 133-145 [facility] Comment on above: Order Comment: 110-1 Performed By: #### L 100.0500, L500.2500, L500.4100 #### [facility] [address] [place], [address] Urea nitrogen [Mass/Vol] 10 mg/dL Normal 4-19 [facility] Comment on above: Order Comment: 110-1 Performed By: #### L 100.0500, L500.2500, L500.4100 #### [facility] [address] [place], [address] [facility] Erythrocyte distribution width (RBC) [Ratio] 15.0 % High 11.6-14.6 [facility] Comment on above: Order Comment: 110-1 Performed By: #### L 100.0500, L500.2500, L500.4100 #### [facility] [address] [place], [address] Hematocrit (Bld) [Volume fraction] 25.5 % Low 40-54 [facility] Comment on above: Order Comment: 110-1 Performed By: #### L 100.0500, L500.2500, L500.4100 #### [facility] [address] [place], [address] Hemoglobin (Bld) [Mass/Vol] 8.7 g/dL Low 13.0-16.5 [facility] Comment on above: Order Comment: 110-1 Performed By: #### L 100.0500, L500.2500, L500.4100 #### [facility] [address] [place], [address] MCH (RBC) [Entitic mass] 32.5 pg High 27.0-32.0 [facility] Comment on above: Order Comment: 110-1 Performed By: #### L 100.0500, L500.2500, L500.4100 #### [facility] [address] [place], [address] MCHC (RBC) [Mass/Vol] 34.1 g/dL Normal 32-36 [facility] Comment on above: Order Comment: 110-1 Performed By: #### L 100.0500, L500.2500, L500.4100 #### [facility] [address] [place], [address] MCV (RBC) [Entitic vol] 95.1 fL High 80-94 [facility] Comment on above: Order Comment: 110-1 Performed By: #### L 100.0500, L500.2500, L500.4100 #### [facility] [address] [place], [address] Platelet mean volume (Bld) [Entitic vol] 11.1 fL Normal 6.2-12.0 [facility] Comment on above: Order Comment: 110-1 Performed By: #### L 100.0500, L500.2500, L500.4100 #### [facility] [address] [place], [address] Platelets (Bld) [#/Vol] 122 10*3/uL Low 150-450 [facility] Comment on above: Order Comment: 110-1 Performed By: #### L 100.0500, L500.2500, L500.4100 #### [facility] [address] [place], [address] RBC (Bld) [#/Vol] 2.68 10*6/uL Low 4.6-6.2 [facility] Comment on above: Order Comment: 110-1 Performed By: #### L 100.0500, L500.2500, L500.4100 #### [facility] [address] [place], [address] RDW SD 51.4 fl High 35.1-43.9 [facility] Comment on above: Order Comment: 110-1 Performed By: #### L 100.0500, L500.2500, L500.4100 #### [facility] [address] [place], [address] WBC (Bld) [#/Vol] 3.3 10*3/uL Low 4.4-11.0 [facility] Comment on above: Order Comment: 110-1 Performed By: #### L 100.0500, L500.2500, L500.4100 #### [facility] [address] [place], [address] Lipid Profileon 04-01-2025 CHOL:HDL 1.84 Normal [facility] [facility] Comment on above: Order Comment: 110-1 Performed By: #### L 100.0500, L500.2500, L500.4100 #### [facility] [address] [place], [address] Cholesterol [Mass/Vol] 82 mg/dL Normal <=200 [facility] Comment on above: Order Comment: 110-1 Result Comment: Chol esterol level, Desirable <200 mg/dL Borderline high cholesterol 200-239 mg/dL High cholesterol >=240 mg/dL Recommendations of the NCEP Adult Treatment Panel for the following risk-cutoff thresholds for the [place] population. Performed By: #### L 100.0500, L500.2500, L500.4100 #### [facility] [address] [place], [address] Cholesterol in HDL [Mass/Vol] 45 mg/dL Normal [facility] Comment on above: Order Comment: 110-1 Result Comment: Jesus[place] onal Cholesterol Education Program (NCEP) guidelines: <40 mg/dL: Low HDL-cholesterol (major risk factor for CHD) >= 60 mg/dL: High HDL-cholesterol (negative risk factor for CHD) HDL-cholesterol is affected by a number of factors, e.g. smoking, exercise, hormones, sex and age. Performed By: #### L 100.0500, L500.2500, L500.4100 #### [facility] [address] [place], [address] Cholesterol in LDL [Mass/Vol] 22 mg/dL Normal [facility] Comment on above: Order Comment: 110-1 Result Comment: Bord nthqlu=772-980 mg/dL Higher Coin=025 mg/dL or greater Friedwald Equation for LDL-C Performed By: #### L 100.0500, L500.2500, L500.4100 #### [facility] [address] [place], [address] Cholesterol in VLDL [Mass/Vol] 16 mg/dL Normal 5-40 [facility] Comment on above: Order Comment: 110-1 Performed By: #### L 100.0500, L500.2500, L500.4100 #### [facility] [address] [place], [address] Triglyceride [Mass/Vol] 80 mg/dL Normal [facility] Comment on above: Order Comment: 110-1 Result Comment: The drugs N-Acetylcysteine and Metamizole may falsely depress this assay. Normal range: <150 mg/dL Borderline High: 150-199 mg/dL High: 200-499 mg/dL Very High: >500 mg/dL Performed By: #### L 100.0500, L500.2500, L500.4100 #### [facility] [address] [place], [address] CBC-Complete Blood Cnt No Di ffon 08-20-2025 Erythrocyte distribution width (RBC) [Ratio] 13.1 % Normal 11.6-14.6 [facility] Comment on above: Order Comment: 110.1 Performed By: #### L 505.5000, L100.0100, L500.2500, L501.9100 #### [facility] [address] [place], [address] Hematocrit (Bld) [Volume fraction] 32.8 % Low 40-54 [facility] Comment on above: Order Comment: 110.1 Performed By: #### L 505.5000, L100.0100, L500.2500, L501.9100 #### [facility] [address] [place], [address] Hemoglobin (Bld) [Mass/Vol] 11.0 g/dL Low 13.0-16.5 [facility] Comment on above: Order Comment: 110.1 Performed By: #### L 505.5000, L100.0100, L500.2500, L501.9100 #### [facility] [address] [place], [address] MCH (RBC) [Entitic mass] 31.4 pg Normal 27.0-32.0 [facility] Comment on above: Order Comment: 110.1 Performed By: #### L 505.5000, L100.0100, L500.2500, L501.9100 #### [facility] [address] [place], [address] MCHC (RBC) [Mass/Vol] 33.5 g/dL Normal 32-36 [facility] Comment on above: Order Comment: 110.1 Performed By: #### L 505.5000, L100.0100, L500.2500, L501.9100 #### [facility] [address] [place], [address] MCV (RBC) [Entitic vol] 93.7 fL Normal 80-94 [facility] Comment on above: Order Comment: 110.1 Performed By: #### L 505.5000, L100.0100, L500.2500, L501.9100 #### [facility] [address] [place], [address] Platelet mean volume (Bld) [Entitic vol] 11.8 fL Normal 6.2-12.0 [facility] Comment on above: Order Comment: 110.1 Performed By: #### L 505.5000, L100.0100, L500.2500, L501.9100 #### [facility] [address] [place], [address] Platelets (Bld) [#/Vol] 113 10*3/uL Low 150-450 [facility] Comment on above: Order Comment: 110.1 Performed By: #### L 505.5000, L100.0100, L500.2500, L501.9100 #### [facility] [address] [place], [address] RBC (Bld) [#/Vol] 3.50 10*6/uL Low 4.6-6.2 [facility] Comment on above: Order Comment: 110.1 Performed By: #### L 505.5000, L100.0100, L500.2500, L501.9100 #### [facility] [address] [place], [address] RDW SD 44.6 fl High 35.1-43.9 [facility] Comment on above: Order Comment: 110.1 Performed By: #### L 505.5000, L100.0100, L500.2500, L501.9100 #### [facility] [address] [place], [address] WBC (Bld) [#/Vol] 6.8 10*3/uL Normal 4.4-11.0 [facility] Comment on above: Order Comment: 110.1 Performed By: #### L 505.5000, L100.0100, L500.2500, L501.9100 #### [facility] [address] [place], [address] Basic Metabolic Profile (BMP )on 03-01-2025 BUN/CRE 15.2 RATIO Normal 10-20 [facility] Comment on above: Order Comment: 110.1 Performed By: #### L 505.5000, L100.0100, L500.2500, L501.9100 #### [facility] [address] [place], [address] Calcium [Mass/Vol] 8.6 mg/dL Normal 7.6-11.0 [facility] Comment on above: Order Comment: 110.1 Performed By: #### L 505.5000, L100.0100, L500.2500, L501.9100 #### [facility] [address] [place], [address] Chloride [Moles/Vol] 104 mmol/L Normal 98-108 [facility] Comment on above: Order Comment: 110.1 Performed By: #### L 505.5000, L100.0100, L500.2500, L501.9100 #### [facility] [address] [place], [address] CO2 [Moles/Vol] 23.1 mmol/L Normal 21.0-32.0 [facility] Comment on above: Order Comment: 110.1 Performed By: #### L 505.5000, L100.0100, L500.2500, L501.9100 #### [facility] [address] [place], [address] Creatinine [Mass/Vol] 1.02 mg/dL Normal 0.70-1.20 [facility] Comment on above: Order Comment: 110.1 Performed By: #### L 505.5000, L100.0100, L500.2500, L501.9100 #### [facility] [address] [place], [address] GAP 11 Normal 5-15 [facility] Comment on above: Order Comment: 110.1 Performed By: #### L 505.5000, L100.0100, L500.2500, L501.9100 #### [facility] [address] [place], [address] GFR/1.73 sq M.predicted among non-blacks MDRD (S/P/Bld) [Vol rate/Area] 73 mL/min/{1.73_m2} Normal >60 [facility] Comment on above: Order Comment: 110.1 Result Comment: mL/m in/1.73m2 CKD-EPI Creatinine Equation (2020) Performed By: #### L 505.5000, L100.0100, L500.2500, L501.9100 #### [facility] [address] [place], [address] Glucose [Mass/Vol] 75 mg/dL Normal 70-99 [facility] Comment on above: Order Comment: 110.1 Performed By: #### L 505.5000, L100.0100, L500.2500, L501.9100 #### [facility] [address] [place], [address] Potassium [Moles/Vol] 3.9 mmol/L Normal 3.3-5.1 [facility] Comment on above: Order Comment: 110.1 Performed By: #### L 505.5000, L100.0100, L500.2500, L501.9100 #### [facility] [address] [place], [address] Sodium [Moles/Vol] 138 mmol/L Normal 133-145 [facility] Comment on above: Order Comment: 110.1 Performed By: #### L 505.5000, L100.0100, L500.2500, L501.9100 #### [facility] [address] [place], [address] Urea nitrogen [Mass/Vol] 16 mg/dL Normal 4-19 [facility] Comment on above: Order Comment: 110.1 Performed By: #### L 505.5000, L100.0100, L500.2500, L501.9100 #### [facility] [address] [place], [address] CBC-Complete Blood Cnt No Di ffon 03-01-2025 HCT Normal 40-54 [facility] Comment on above: Order Comment: 110.1 Result Comment: This specimen has been REJECTED due to Laboratory criteria: Quanity Not Sufficient. MYEAGER has been notified of need of recollection. 03/01/25 0915 Kamilah Zimmerman Performed By: #### L 505.5000, L100.0100, L500.2500, L501.9100 #### [facility] [address] [place], [address] HGB Normal 13.0-16.5 [facility] Comment on above: Order Comment: 110.1 Result Comment: This specimen has been REJECTED due to Laboratory criteria: Quanity Not Sufficient. MYEAGER has been notified of need of recollection. 03/01/25 0915 Kamilah Zimmerman Performed By: #### L 505.5000, L100.0100, L500.2500, L501.9100 #### [facility] [address] [place], [address] MCH Normal 27.0-32.0 [facility] Comment on above: Order Comment: 110.1 Result Comment: This specimen has been REJECTED due to Laboratory criteria: Quanity Not Sufficient. MYEAGER has been notified of need of recollection. 03/01/25 0915 Kamilah Zimmerman Performed By: #### L 505.5000, L100.0100, L500.2500, L501.9100 #### [facility] [address] [place], [address] MCHC Normal 32-36 [facility] Comment on above: Order Comment: 110.1 Result Comment: This specimen has been REJECTED due to Laboratory criteria: Quanity Not Sufficient. MYEAGER has been notified of need of recollection. 03/01/2515 Kamilah Zimmerman Performed By: #### L 505.5000, L100.0100, L500.2500, L501.9100 #### [facility] [address] [place], [address] MCV Normal 80-94 [facility] Comment on above: Order Comment: 110.1 Result Comment: This specimen has been REJECTED due to Laboratory criteria: Quanity Not Sufficient. MYEAGER has been notified of need of recollection. 03/01/25 0915 Kamilah Zimmerman Performed By: #### L 505.5000, L100.0100, L500.2500, L501.9100 #### [facility] [address] [place], [address] PLT Normal 150-450 [facility] Comment on above: Order Comment: 110.1 Result Comment: This specimen has been REJECTED due to Laboratory criteria: Quanity Not Sufficient. MYEAGER has been notified of need of recollection. 03/01/25 0915 Kamilah Zimmerman Performed By: #### L 505.5000, L100.0100, L500.2500, L501.9100 #### [facility] [address] [place], [address] RBC Normal 4.6-6.2 [facility] Comment on above: Order Comment: 110.1 Result Comment: This specimen has been REJECTED due to Laboratory criteria: Quanity Not Sufficient. MYEAGER has been notified of need of recollection. 03/01/2515 Kamilah Zimmerman Performed By: #### L 505.5000, L100.0100, L500.2500, L501.9100 #### [facility] [address] [place], [address] RDW CV Normal 11.6-14.6 [facility] Comment on above: Order Comment: 110.1 Result Comment: This specimen has been REJECTED due to Laboratory criteria: Quanity Not Sufficient. MYEAGER has been notified of need of recollection. 03/01/2515 Kamilah Zimmerman Performed By: #### L 505.5000, L100.0100, L500.2500, L501.9100 #### [facility] [address] [place], [address] RDW SD Normal 35.1-43.9 [facility] Comment on above: Order Comment: 110.1 Result Comment: This specimen has been REJECTED due to Laboratory criteria: Quanity Not Sufficient. MYEAGER has been notified of need of recollection. 03/01/2515 Kamilah Zimmerman Performed By: #### L 505.5000, L100.0100, L500.2500, L501.9100 #### [facility] [address] [place], [address] WBC Normal 4.4-11.0 [facility] Comment on above: Order Comment: 110.1 Result Comment: This specimen has been REJECTED due to Laboratory criteria: Quanity Not Sufficient. MYEAGER has been notified of need of recollection. 03/01/2515 Kamilah Zimmerman Performed By: #### L 505.5000, L100.0100, L500.2500, L501.9100 #### [facility] [address] [place], [address] Lipid Profileon 03-01-2025 CHOL:HDL 2.34 Normal [facility] Comment on above: Order Comment: 110.1 Performed By: #### L 505.5000, L100.0100, L500.2500, L501.9100 #### [facility] [address] [place], [address] Cholesterol [Mass/Vol] 81 mg/dL Normal <=200 [facility] Comment on above: Order Comment: 110.1 Result Comment: Chol esterol level, Desirable <200 mg/dL Borderline high cholesterol 200-239 mg/dL High cholesterol >=240 mg/dL Recommendations of the NCEP Adult Treatment Panel for the following risk-cutoff thresholds for the [place] population. Performed By: #### L 505.5000, L100.0100, L500.2500, L501.9100 #### [facility] [address] [place], [address] Cholesterol in HDL [Mass/Vol] 35 mg/dL Low [facility] Comment on above: Order Comment: 110.1 Result Comment: [place] onal Cholesterol Education Program (NCEP) guidelines: <40 mg/dL: Low HDL-cholesterol (major risk factor for CHD) >= 60 mg/dL: High HDL-cholesterol (negative risk factor for CHD) HDL-cholesterol is affected by a number of factors, e.g. smoking, exercise, hormones, sex and age. Performed By: #### L 505.5000, L100.0100, L500.2500, L501.9100 #### [facility] [address] [place], [address] Cholesterol in LDL [Mass/Vol] 30 mg/dL Normal [facility] Comment on above: Order Comment: 110.1 Result Comment: Bord ftskzr=657-733 mg/dL Higher Irhf=988 mg/dL or greater Friedwald Equation for LDL-C Performed By: #### L 505.5000, L100.0100, L500.2500, L501.9100 #### [facility] [address] [place], [address] Cholesterol in VLDL [Mass/Vol] 16 mg/dL Normal 5-40 [facility] Comment on above: Order Comment: 110.1 Performed By: #### L 505.5000, L100.0100, L500.2500, L501.9100 #### [facility] [address] [place], [address] Triglyceride [Mass/Vol] 79 mg/dL Normal [facility] Comment on above: Order Comment: 110.1 Result Comment: The drugs N-Acetylcysteine and Metamizole may falsely depress this assay. Normal range: <150 mg/dL Borderline High: 150-199 mg/dL High: 200-499 mg/dL Very High: >500 mg/dL Performed By: #### L 505.5000, L100.0100, L500.2500, L501.9100 #### [facility] [address] [place], [address] Basic Metabolic Profile (BMP )on 02-17-2025 BUN Normal 4-19 [facility] Comment on above: Result Comment: Canc elled via OM: Order cancelled - Patient discharged Performed By: #### L 505.5000, L100.0100, L500.2500, L501.9100 #### [facility] [address] [place], [address] BUN/CRE Normal 10-20 [facility] Comment on above: Result Comment: Canc elled via OM: Order cancelled - Patient discharged Performed By: #### L 505.5000, L100.0100, L500.2500, L501.9100 #### [facility] [address] [place], [address] Calcium Normal 7.6-11.0 [facility] Comment on above: Result Comment: Canc elled via OM: Order cancelled - Patient discharged Performed By: #### L 505.5000, L100.0100, L500.2500, L501.9100 #### [facility] [address] [place], [address] CL Normal 98-108 [facility] Comment on above: Result Comment: Canc elled via OM: Order cancelled - Patient discharged Performed By: #### L 505.5000, L100.0100, L500.2500, L501.9100 #### [facility] [address] [place], [address] CO2 Normal 21.0-32.0 [facility] Comment on above: Result Comment: Canc elled via OM: Order cancelled - Patient discharged Performed By: #### L 505.5000, L100.0100, L500.2500, L501.9100 #### [facility] [address] [place], [address] CREAT,SERUM Normal 0.70-1.20 [facility] Comment on above: Result Comment: Canc elled via OM: Order cancelled - Patient discharged Performed By: #### L 505.5000, L100.0100, L500.2500, L501.9100 #### [facility] [address] [place], [address] eGFR Normal >60 [facility] Comment on above: Result Comment: Canc elled via OM: Order cancelled - Patient discharged Performed By: #### L 505.5000, L100.0100, L500.2500, L501.9100 #### [facility] [address] [place], [address] GAP Normal 5-15 [facility] Comment on above: Result Comment: Canc elled via OM: Order cancelled - Patient discharged Performed By: #### L 505.5000, L100.0100, L500.2500, L501.9100 #### [facility] [address] [place], [address] GLU Normal 70-99 [facility] Comment on above: Result Comment: Canc elled via OM: Order cancelled - Patient discharged Performed By: #### L 505.5000, L100.0100, L500.2500, L501.9100 #### [facility] [address] [place], [address] Potassium Normal 3.3-5.1 [facility] Comment on above: Result Comment: Canc elled via OM: Order cancelled - Patient discharged Performed By: #### L 505.5000, L100.0100, L500.2500, L501.9100 #### [facility] [address] [place], [address] Basic Metabolic Profile (BMP) Normal 133-145 [facility] Comment on above: Result Comment: Canc elled via OM: Order cancelled - Patient discharged Performed By: #### L 505.5000, L100.0100, L500.2500, L501.9100 #### [facility] [address] [place], [address] CBC W/Diff, Automatedon 08-0 -2024 Absolute Neut Normal 2.0-7.7 [facility] Comment on above: Result Comment: Canc elled via OM: Order cancelled - Patient discharged Performed By: #### L 505.5000, L100.0100, L500.2500, L501.9100 #### [facility] [address] [place], [address] HCT Normal 40-54 [facility] Comment on above: Result Comment: Canc elled via OM: Order cancelled - Patient discharged Performed By: #### L 505.5000, L100.0100, L500.2500, L501.9100 #### [facility] [address] [place], [address] HGB Normal 13.0-16.5 [facility] Comment on above: Result Comment: Canc elled via OM: Order cancelled - Patient discharged Performed By: #### L 505.5000, L100.0100, L500.2500, L501.9100 #### [facility] [address] [place], [address] MCH Normal 27.0-32.0 [facility] Comment on above: Result Comment: Canc elled via OM: Order cancelled - Patient discharged Performed By: #### L 505.5000, L100.0100, L500.2500, L501.9100 #### [facility] [address] [place], [address] MCHC Normal 32-36 [facility] Comment on above: Result Comment: Canc elled via OM: Order cancelled - Patient discharged Performed By: #### L 505.5000, L100.0100, L500.2500, L501.9100 #### [facility] [address] [place], [address] MCV Normal 80-94 [facility] Comment on above: Result Comment: Canc elled via OM: Order cancelled - Patient discharged Performed By: #### L 505.5000, L100.0100, L500.2500, L501.9100 #### [facility] [address] [place], [address] NEUT% Normal 47-70 [facility] Comment on above: Result Comment: Canc elled via OM: Order cancelled - Patient discharged Performed By: #### L 505.5000, L100.0100, L500.2500, L501.9100 #### [facility] [address] [place], [address] PLT Normal 150-450 [facility] Comment on above: Result Comment: Canc elled via OM: Order cancelled - Patient discharged Performed By: #### L 505.5000, L100.0100, L500.2500, L501.9100 #### [facility] [address] [place], [address] RBC Normal 4.6-6.2 [facility] Comment on above: Result Comment: Canc elled via OM: Order cancelled - Patient discharged Performed By: #### L 505.5000, L100.0100, L500.2500, L501.9100 #### [facility] [address] [place], [address] RDW CV Normal 11.6-14.6 [facility] Comment on above: Result Comment: Canc elled via OM: Order cancelled - Patient discharged Performed By: #### L 505.5000, L100.0100, L500.2500, L501.9100 #### [facility] [address] [place], [address] RDW SD Normal 35.1-43.9 [facility] Comment on above: Result Comment: Canc elled via OM: Order cancelled - Patient discharged Performed By: #### L 505.5000, L100.0100, L500.2500, L501.9100 #### [facility] [address] [place], [address] WBC Normal 4.4-11.0 [facility] Comment on above: Result Comment: Canc elled via OM: Order cancelled - Patient discharged Performed By: #### L 505.5000, L100.0100, L500.2500, L501.9100 #### [facility] [address] [place], [address] Basic Metabolic Profile (BMP )on 02-16-2025 BUN Normal 4-19 [facility] Comment on above: Result Comment: Canc elled via OM: Order cancelled - Patient discharged Performed By: #### L 505.5000, L100.0100, L500.2500, L501.9100 #### [facility] [address] [place], [address] BUN/CRE Normal 10-20 [facility] Comment on above: Result Comment: Canc elled via OM: Order cancelled - Patient discharged Performed By: #### L 505.5000, L100.0100, L500.2500, L501.9100 #### [facility] [address] [place], [address] Calcium Normal 7.6-11.0 [facility] Comment on above: Result Comment: Canc elled via OM: Order cancelled - Patient discharged Performed By: #### L 505.5000, L100.0100, L500.2500, L501.9100 #### [facility] [address] [place], [address] CL Normal 98-108 [facility] Comment on above: Result Comment: Canc elled via OM: Order cancelled - Patient discharged Performed By: #### L 505.5000, L100.0100, L500.2500, L501.9100 #### [facility] [address] [place], [address] CO2 Normal 21.0-32.0 [facility] Comment on above: Result Comment: Canc elled via OM: Order cancelled - Patient discharged Performed By: #### L 505.5000, L100.0100, L500.2500, L501.9100 #### [facility] [address] [place], [address] CREAT,SERUM Normal 0.70-1.20 [facility] Comment on above: Result Comment: Canc elled via OM: Order cancelled - Patient discharged Performed By: #### L 505.5000, L100.0100, L500.2500, L501.9100 #### [facility] [address] [place], [address] eGFR Normal >60 [facility] Comment on above: Result Comment: Canc elled via OM: Order cancelled - Patient discharged Performed By: #### L 505.5000, L100.0100, L500.2500, L501.9100 #### [facility] [address] [place], [address] GAP Normal 5-15 [facility] Comment on above: Result Comment: Canc elled via OM: Order cancelled - Patient discharged Performed By: #### L 505.5000, L100.0100, L500.2500, L501.9100 #### [facility] [address] [place], [address] GLU Normal 70-99 [facility] Comment on above: Result Comment: Canc elled via OM: Order cancelled - Patient discharged Performed By: #### L 505.5000, L100.0100, L500.2500, L501.9100 #### [facility] [address] [place], [address] Potassium Normal 3.3-5.1 [facility] Comment on above: Result Comment: Canc elled via OM: Order cancelled - Patient discharged Performed By: #### L 505.5000, L100.0100, L500.2500, L501.9100 #### [facility] [address] [place], [address] Basic Metabolic Profile (BMP) Normal 133-145 [facility] Comment on above: Result Comment: Canc elled via OM: Order cancelled - Patient discharged Performed By: #### L 505.5000, L100.0100, L500.2500, L501.9100 #### [facility] [address] [place], [address] CBC W/Diff, Automatedon 08-0 -2024 Absolute Neut Normal 2.0-7.7 [facility] Comment on above: Result Comment: Canc elled via OM: Order cancelled - Patient discharged Performed By: #### L 505.5000, L100.0100, L500.2500, L501.9100 #### [facility] [address] [place], [address] HCT Normal 40-54 [facility] Comment on above: Result Comment: Canc elled via OM: Order cancelled - Patient discharged Performed By: #### L 505.5000, L100.0100, L500.2500, L501.9100 #### [facility] [address] [place], [address] HGB Normal 13.0-16.5 [facility] Comment on above: Result Comment: Canc elled via OM: Order cancelled - Patient discharged Performed By: #### L 505.5000, L100.0100, L500.2500, L501.9100 #### [facility] [address] [place], [address] MCH Normal 27.0-32.0 [facility] Comment on above: Result Comment: Canc elled via OM: Order cancelled - Patient discharged Performed By: #### L 505.5000, L100.0100, L500.2500, L501.9100 #### [facility] [address] [place], [address] MCHC Normal 32-36 [facility] Comment on above: Result Comment: Canc elled via OM: Order cancelled - Patient discharged Performed By: #### L 505.5000, L100.0100, L500.2500, L501.9100 #### [facility] [address] [place], [address] MCV Normal 80-94 [facility] Comment on above: Result Comment: Canc elled via OM: Order cancelled - Patient discharged Performed By: #### L 505.5000, L100.0100, L500.2500, L501.9100 #### [facility] [address] [place], [address] NEUT% Normal 47-70 [facility] Comment on above: Result Comment: Canc elled via OM: Order cancelled - Patient discharged Performed By: #### L 505.5000, L100.0100, L500.2500, L501.9100 #### [facility] [address] [place], [address] PLT Normal 150-450 [facility] Comment on above: Result Comment: Canc elled via OM: Order cancelled - Patient discharged Performed By: #### L 505.5000, L100.0100, L500.2500, L501.9100 #### [facility] [address] [place], [address] RBC Normal 4.6-6.2 [facility] Comment on above: Result Comment: Canc elled via OM: Order cancelled - Patient discharged Performed By: #### L 505.5000, L100.0100, L500.2500, L501.9100 #### [facility] [address] [place], [address] RDW CV Normal 11.6-14.6 [facility] Comment on above: Result Comment: Canc elled via OM: Order cancelled - Patient discharged Performed By: #### L 505.5000, L100.0100, L500.2500, L501.9100 #### [facility] [address] [place], [address] RDW SD Normal 35.1-43.9 [facility] Comment on above: Result Comment: Canc elled via OM: Order cancelled - Patient discharged Performed By: #### L 505.5000, L100.0100, L500.2500, L501.9100 #### [facility] [address] [place], [address] WBC Normal 4.4-11.0 [facility] Comment on above: Result Comment: Canc elled via OM: Order cancelled - Patient discharged Performed By: #### L 505.5000, L100.0100, L500.2500, L501.9100 #### [facility] [address] [place], [address] Basic Metabolic Profile (BMP )on 02-15-2025 BUN Normal 4-19 [facility] Comment on above: Result Comment: Canc elled via OM: Order cancelled - Patient discharged Performed By: #### L 505.5000, L100.0100, L500.2500, L501.9100 #### [facility] [address] [place], [address] BUN/CRE Normal 10-20 [facility] Comment on above: Result Comment: Canc elled via OM: Order cancelled - Patient discharged Performed By: #### L 505.5000, L100.0100, L500.2500, L501.9100 #### [facility] [address] [place], [address] Calcium Normal 7.6-11.0 [facility] Comment on above: Result Comment: Canc elled via OM: Order cancelled - Patient discharged Performed By: #### L 505.5000, L100.0100, L500.2500, L501.9100 #### [facility] [address] [place], [address] CL Normal 98-108 [facility] Comment on above: Result Comment: Canc elled via OM: Order cancelled - Patient discharged Performed By: #### L 505.5000, L100.0100, L500.2500, L501.9100 #### [facility] [address] [place], [address] CO2 Normal 21.0-32.0 [facility] Comment on above: Result Comment: Canc elled via OM: Order cancelled - Patient discharged Performed By: #### L 505.5000, L100.0100, L500.2500, L501.9100 #### [facility] [address] [place], [address] CREAT,SERUM Normal 0.70-1.20 [facility] Comment on above: Result Comment: Canc elled via OM: Order cancelled - Patient discharged Performed By: #### L 505.5000, L100.0100, L500.2500, L501.9100 #### [facility] [address] [place], [address] eGFR Normal >60 [facility] Comment on above: Result Comment: Canc elled via OM: Order cancelled - Patient discharged Performed By: #### L 505.5000, L100.0100, L500.2500, L501.9100 #### [facility] [address] [place], [address] GAP Normal 5-15 [facility] Comment on above: Result Comment: Canc elled via OM: Order cancelled - Patient discharged Performed By: #### L 505.5000, L100.0100, L500.2500, L501.9100 #### [facility] [address] [place], [address] GLU Normal 70-99 [facility] Comment on above: Result Comment: Canc elled via OM: Order cancelled - Patient discharged Performed By: #### L 505.5000, L100.0100, L500.2500, L501.9100 #### [facility] [address] [place], [address] Potassium Normal 3.3-5.1 [facility] Comment on above: Result Comment: Canc elled via OM: Order cancelled - Patient discharged Performed By: #### L 505.5000, L100.0100, L500.2500, L501.9100 #### [facility] [address] [place], [address] Basic Metabolic Profile (BMP) Normal 133-145 [facility] Comment on above: Result Comment: Canc elled via OM: Order cancelled - Patient discharged Performed By: #### L 505.5000, L100.0100, L500.2500, L501.9100 #### [facility] [address] [place], [address] CBC W/Diff, Automatedon 08-0 -2024 Absolute Neut Normal 2.0-7.7 [facility] Comment on above: Result Comment: Canc elled via OM: Order cancelled - Patient discharged Performed By: #### L 505.5000, L100.0100, L500.2500, L501.9100 #### [facility] [address] [place], [address] HCT Normal 40-54 [facility] Comment on above: Result Comment: Canc elled via OM: Order cancelled - Patient discharged Performed By: #### L 505.5000, L100.0100, L500.2500, L501.9100 #### [facility] [address] [place], [address] HGB Normal 13.0-16.5 [facility] Comment on above: Result Comment: Canc elled via OM: Order cancelled - Patient discharged Performed By: #### L 505.5000, L100.0100, L500.2500, L501.9100 #### [facility] [address] [place], [address] MCH Normal 27.0-32.0 [facility] Comment on above: Result Comment: Canc elled via OM: Order cancelled - Patient discharged Performed By: #### L 505.5000, L100.0100, L500.2500, L501.9100 #### [facility] [address] [place], [address] MCHC Normal 32-36 [facility] Comment on above: Result Comment: Canc elled via OM: Order cancelled - Patient discharged Performed By: #### L 505.5000, L100.0100, L500.2500, L501.9100 #### [facility] [address] [place], [address] MCV Normal 80-94 [facility] Comment on above: Result Comment: Canc elled via OM: Order cancelled - Patient discharged Performed By: #### L 505.5000, L100.0100, L500.2500, L501.9100 #### [facility] [address] [place], [address] NEUT% Normal 47-70 [facility] Comment on above: Result Comment: Canc elled via OM: Order cancelled - Patient discharged Performed By: #### L 505.5000, L100.0100, L500.2500, L501.9100 #### [facility] [address] [place], [address] PLT Normal 150-450 [facility] Comment on above: Result Comment: Canc elled via OM: Order cancelled - Patient discharged Performed By: #### L 505.5000, L100.0100, L500.2500, L501.9100 #### [facility] [address] [place], [address] RBC Normal 4.6-6.2 [facility] Comment on above: Result Comment: Canc elled via OM: Order cancelled - Patient discharged Performed By: #### L 505.5000, L100.0100, L500.2500, L501.9100 #### [facility] [address] [place], [address] RDW CV Normal 11.6-14.6 [facility] Comment on above: Result Comment: Canc elled via OM: Order cancelled - Patient discharged Performed By: #### L 505.5000, L100.0100, L500.2500, L501.9100 #### [facility] [address] [place], [address] RDW SD Normal 35.1-43.9 [facility] Comment on above: Result Comment: Canc elled via OM: Order cancelled - Patient discharged Performed By: #### L 505.5000, L100.0100, L500.2500, L501.9100 #### [facility] [address] [place], [address] WBC Normal 4.4-11.0 [facility] Comment on above: Result Comment: Canc elled via OM: Order cancelled - Patient discharged Performed By: #### L 505.5000, L100.0100, L500.2500, L501.9100 #### [facility] [address] [place], [address] Basic Metabolic Profile (BMP )on 02-14-2025 BUN Normal 4-19 [facility] Comment on above: Result Comment: Canc elled via OM: Order cancelled - Patient discharged Performed By: #### L 100.0500, L500.2500, L500.4100 #### [facility] [address] [place], [address] BUN/CRE Normal 10-20 [facility] Comment on above: Result Comment: Canc elled via OM: Order cancelled - Patient discharged Performed By: #### L 100.0500, L500.2500, L500.4100 #### [facility] [address] [place], [address] Calcium Normal 7.6-11.0 [facility] Comment on above: Result Comment: Canc elled via OM: Order cancelled - Patient discharged Performed By: #### L 100.0500, L500.2500, L500.4100 #### [facility] [address] [place], [address] CL Normal 98-108 [facility] Comment on above: Result Comment: Canc elled via OM: Order cancelled - Patient discharged Performed By: #### L 100.0500, L500.2500, L500.4100 #### [facility] [address] [place], [address] CO2 Normal 21.0-32.0 [facility] Comment on above: Result Comment: Canc elled via OM: Order cancelled - Patient discharged Performed By: #### L 100.0500, L500.2500, L500.4100 #### [facility] [address] [place], [address] CREAT,SERUM Normal 0.70-1.20 [facility] Comment on above: Result Comment: Canc elled via OM: Order cancelled - Patient discharged Performed By: #### L 100.0500, L500.2500, L500.4100 #### [facility] [address] [place], [address] eGFR Normal >60 [facility] Comment on above: Result Comment: Canc elled via OM: Order cancelled - Patient discharged Performed By: #### L 100.0500, L500.2500, L500.4100 #### [facility] [address] [place], [address] GAP Normal 5-15 [facility] Comment on above: Result Comment: Canc elled via OM: Order cancelled - Patient discharged Performed By: #### L 100.0500, L500.2500, L500.4100 #### [facility] [address] [place], [address] GLU Normal 70-99 [facility] Comment on above: Result Comment: Canc elled via OM: Order cancelled - Patient discharged Performed By: #### L 100.0500, L500.2500, L500.4100 #### [facility] [address] [place], [address] Potassium Normal 3.3-5.1 [facility] Comment on above: Result Comment: Canc elled via OM: Order cancelled - Patient discharged Performed By: #### L 100.0500, L500.2500, L500.4100 #### [facility] [address] [place], [address] Basic Metabolic Profile (BMP) Normal 133-145 [facility] Comment on above: Result Comment: Canc elled via OM: Order cancelled - Patient discharged Performed By: #### L 100.0500, L500.2500, L500.4100 #### [facility] [address] [place], [address] CBC W/Diff, Automatedon 08-0 Absolute Neut Normal 2.0-7.7 [facility] Comment on above: Result Comment: Canc elled via OM: Order cancelled - Patient discharged Performed By: #### L 505.5000, L100.0100, L500.2500, L501.9100 #### [facility] [address] [place], [address] HCT Normal 40-54 [facility] Comment on above: Result Comment: Canc elled via OM: Order cancelled - Patient discharged Performed By: #### L 505.5000, L100.0100, L500.2500, L501.9100 #### [facility] [address] [place], [address] HGB Normal 13.0-16.5 [facility] Comment on above: Result Comment: Canc elled via OM: Order cancelled - Patient discharged Performed By: #### L 505.5000, L100.0100, L500.2500, L501.9100 #### [facility] [address] [place], [address] MCH Normal 27.0-32.0 [facility] Comment on above: Result Comment: Canc elled via OM: Order cancelled - Patient discharged Performed By: #### L 505.5000, L100.0100, L500.2500, L501.9100 #### [facility] [address] [place], [address] MCHC Normal 32-36 [facility] Comment on above: Result Comment: Canc elled via OM: Order cancelled - Patient discharged Performed By: #### L 505.5000, L100.0100, L500.2500, L501.9100 #### [facility] [address] [place], [address] MCV Normal 80-94 [facility] Comment on above: Result Comment: Canc elled via OM: Order cancelled - Patient discharged Performed By: #### L 505.5000, L100.0100, L500.2500, L501.9100 #### [facility] [address] [place], [address] NEUT% Normal 47-70 [facility] Comment on above: Result Comment: Canc elled via OM: Order cancelled - Patient discharged Performed By: #### L 505.5000, L100.0100, L500.2500, L501.9100 #### [facility] [address] [place], [address] PLT Normal 150-450 [facility] Comment on above: Result Comment: Canc elled via OM: Order cancelled - Patient discharged Performed By: #### L 505.5000, L100.0100, L500.2500, L501.9100 #### [facility] [address] [place], [address] RBC Normal 4.6-6.2 [facility] Comment on above: Result Comment: Canc elled via OM: Order cancelled - Patient discharged Performed By: #### L 505.5000, L100.0100, L500.2500, L501.9100 #### [facility] [address] [place], [address] RDW CV Normal 11.6-14.6 [facility] Comment on above: Result Comment: Canc elled via OM: Order cancelled - Patient discharged Performed By: #### L 505.5000, L100.0100, L500.2500, L501.9100 #### [facility] [address] [place], [address] RDW SD Normal 35.1-43.9 [facility] Comment on above: Result Comment: Canc elled via OM: Order cancelled - Patient discharged Performed By: #### L 505.5000, L100.0100, L500.2500, L501.9100 #### [facility] [address] [place], [address] WBC Normal 4.4-11.0 [facility] Comment on above: Result Comment: Canc elled via OM: Order cancelled - Patient discharged Performed By: #### L 505.5000, L100.0100, L500.2500, L501.9100 #### [facility] [address] [place], [address] Basic Metabolic Profile (BMP )on 02-13-2025 BUN Normal 4-19 [facility] Comment on above: Result Comment: Canc elled via OM: Order cancelled - Patient discharged Performed By: #### L 505.5000, L100.0100, L500.2500, L501.9100 #### [facility] [address] [place], [address] BUN/CRE Normal 10-20 [facility] Comment on above: Result Comment: Canc elled via OM: Order cancelled - Patient discharged Performed By: #### L 505.5000, L100.0100, L500.2500, L501.9100 #### [facility] [address] [place], [address] Calcium Normal 7.6-11.0 [facility] Comment on above: Result Comment: Canc elled via OM: Order cancelled - Patient discharged Performed By: #### L 505.5000, L100.0100, L500.2500, L501.9100 #### [facility] [address] [place], [address] CL Normal 98-108 [facility] Comment on above: Result Comment: Canc elled via OM: Order cancelled - Patient discharged Performed By: #### L 505.5000, L100.0100, L500.2500, L501.9100 #### [facility] [address] [place], [address] CO2 Normal 21.0-32.0 [facility] Comment on above: Result Comment: Canc elled via OM: Order cancelled - Patient discharged Performed By: #### L 505.5000, L100.0100, L500.2500, L501.9100 #### [facility] [address] [place], [address] CREAT,SERUM Normal 0.70-1.20 [facility] Comment on above: Result Comment: Canc elled via OM: Order cancelled - Patient discharged Performed By: #### L 505.5000, L100.0100, L500.2500, L501.9100 #### [facility] [address] [place], [address] eGFR Normal >60 [facility] Comment on above: Result Comment: Canc elled via OM: Order cancelled - Patient discharged Performed By: #### L 505.5000, L100.0100, L500.2500, L501.9100 #### [facility] [address] [place], [address] GAP Normal 5-15 [facility] Comment on above: Result Comment: Canc elled via OM: Order cancelled - Patient discharged Performed By: #### L 505.5000, L100.0100, L500.2500, L501.9100 #### [facility] [address] [place], [address] GLU Normal 70-99 [facility] Comment on above: Result Comment: Canc elled via OM: Order cancelled - Patient discharged Performed By: #### L 505.5000, L100.0100, L500.2500, L501.9100 #### [facility] [address] [place], [address] Potassium Normal 3.3-5.1 [facility] Comment on above: Result Comment: Canc elled via OM: Order cancelled - Patient discharged Performed By: #### L 505.5000, L100.0100, L500.2500, L501.9100 #### [facility] [address] [place], [address] Basic Metabolic Profile (BMP) Normal 133-145 [facility] Comment on above: Result Comment: Canc elled via OM: Order cancelled - Patient discharged Performed By: #### L 505.5000, L100.0100, L500.2500, L501.9100 #### [facility] [address] [place], [address] CBC W/Diff, Automatedon 08-0 -2024 Absolute Neut Normal 2.0-7.7 [facility] Comment on above: Result Comment: Canc elled via OM: Order cancelled - Patient discharged Performed By: #### L 505.5000, L100.0100, L500.2500, L501.9100 #### [facility] [address] [place], [address] HCT Normal 40-54 [facility] Comment on above: Result Comment: Canc elled via OM: Order cancelled - Patient discharged Performed By: #### L 505.5000, L100.0100, L500.2500, L501.9100 #### [facility] [address] [place], [address] HGB Normal 13.0-16.5 [facility] Comment on above: Result Comment: Canc elled via OM: Order cancelled - Patient discharged Performed By: #### L 505.5000, L100.0100, L500.2500, L501.9100 #### [facility] [address] [place], [address] MCH Normal 27.0-32.0 [facility] Comment on above: Result Comment: Canc elled via OM: Order cancelled - Patient discharged Performed By: #### L 505.5000, L100.0100, L500.2500, L501.9100 #### [facility] [address] [place], [address] MCHC Normal 32-36 [facility] Comment on above: Result Comment: Canc elled via OM: Order cancelled - Patient discharged Performed By: #### L 505.5000, L100.0100, L500.2500, L501.9100 #### [facility] [address] [place], [address] MCV Normal 80-94 [facility] Comment on above: Result Comment: Canc elled via OM: Order cancelled - Patient discharged Performed By: #### L 505.5000, L100.0100, L500.2500, L501.9100 #### [facility] [address] [place], [address] NEUT% Normal 47-70 [facility] Comment on above: Result Comment: Canc elled via OM: Order cancelled - Patient discharged Performed By: #### L 505.5000, L100.0100, L500.2500, L501.9100 #### [facility] [address] [place], [address] PLT Normal 150-450 [facility] Comment on above: Result Comment: Canc elled via OM: Order cancelled - Patient discharged Performed By: #### L 505.5000, L100.0100, L500.2500, L501.9100 #### [facility] [address] [place], [address] RBC Normal 4.6-6.2 [facility] Comment on above: Result Comment: Canc elled via OM: Order cancelled - Patient discharged Performed By: #### L 505.5000, L100.0100, L500.2500, L501.9100 #### [facility] [address] [place], [address] RDW CV Normal 11.6-14.6 [facility] Comment on above: Result Comment: Canc elled via OM: Order cancelled - Patient discharged Performed By: #### L 505.5000, L100.0100, L500.2500, L501.9100 #### [facility] [address] [place], [address] RDW SD Normal 35.1-43.9 [facility] Comment on above: Result Comment: Canc elled via OM: Order cancelled - Patient discharged Performed By: #### L 505.5000, L100.0100, L500.2500, L501.9100 #### [facility] [address] [place], [address] WBC Normal 4.4-11.0 [facility] Comment on above: Result Comment: Canc elled via OM: Order cancelled - Patient discharged Performed By: #### L 505.5000, L100.0100, L500.2500, L501.9100 #### [facility] [address] [place], [address] Basic Metabolic Profile (BMP )on 02-12-2025 BUN Normal 4-19 [facility] Comment on above: Result Comment: Canc elled via OM: Order cancelled - Patient discharged Performed By: #### L 505.5000, L100.0100, L500.2500, L501.9100 #### [facility] [address] [place], [address] BUN/CRE Normal 10-20 [facility] Comment on above: Result Comment: Canc elled via OM: Order cancelled - Patient discharged Performed By: #### L 505.5000, L100.0100, L500.2500, L501.9100 #### [facility] [address] [place], [address] Calcium Normal 7.6-11.0 [facility] Comment on above: Result Comment: Canc elled via OM: Order cancelled - Patient discharged Performed By: #### L 505.5000, L100.0100, L500.2500, L501.9100 #### [facility] [address] [place], [address] CL Normal 98-108 [facility] Comment on above: Result Comment: Canc elled via OM: Order cancelled - Patient discharged Performed By: #### L 505.5000, L100.0100, L500.2500, L501.9100 #### [facility] [address] [place], [address] CO2 Normal 21.0-32.0 [facility] Comment on above: Result Comment: Canc elled via OM: Order cancelled - Patient discharged Performed By: #### L 505.5000, L100.0100, L500.2500, L501.9100 #### [facility] [address] [place], [address] CREAT,SERUM Normal 0.70-1.20 [facility] Comment on above: Result Comment: Canc elled via OM: Order cancelled - Patient discharged Performed By: #### L 505.5000, L100.0100, L500.2500, L501.9100 #### [facility] [address] [place], [address] eGFR Normal >60 [facility] Comment on above: Result Comment: Canc elled via OM: Order cancelled - Patient discharged Performed By: #### L 505.5000, L100.0100, L500.2500, L501.9100 #### [facility] [address] [place], [address] GAP Normal 5-15 [facility] Comment on above: Result Comment: Canc elled via OM: Order cancelled - Patient discharged Performed By: #### L 505.5000, L100.0100, L500.2500, L501.9100 #### [facility] [address] [place], [address] GLU Normal 70-99 [facility] Comment on above: Result Comment: Canc elled via OM: Order cancelled - Patient discharged Performed By: #### L 505.5000, L100.0100, L500.2500, L501.9100 #### [facility] [address] [place], [address] Potassium Normal 3.3-5.1 [facility] Comment on above: Result Comment: Canc elled via OM: Order cancelled - Patient discharged Performed By: #### L 505.5000, L100.0100, L500.2500, L501.9100 #### [facility] [address] [place], [address] Basic Metabolic Profile (BMP) Normal 133-145 [facility] Comment on above: Result Comment: Canc elled via OM: Order cancelled - Patient discharged Performed By: #### L 505.5000, L100.0100, L500.2500, L501.9100 #### [facility] [address] [place], [address] CBC W/Diff, Automatedon 08-0 2-2024 Absolute Neut Normal 2.0-7.7 [facility] Comment on above: Result Comment: Canc elled via OM: Order cancelled - Patient discharged Performed By: #### L 505.5000, L100.0100, L500.2500, L501.9100 #### [facility] [address] [place], [address] HCT Normal 40-54 [facility] Comment on above: Result Comment: Canc elled via OM: Order cancelled - Patient discharged Performed By: #### L 505.5000, L100.0100, L500.2500, L501.9100 #### [facility] [address] [place], [address] HGB Normal 13.0-16.5 [facility] Comment on above: Result Comment: Canc elled via OM: Order cancelled - Patient discharged Performed By: #### L 505.5000, L100.0100, L500.2500, L501.9100 #### [facility] [address] [place], [address] MCH Normal 27.0-32.0 [facility] Comment on above: Result Comment: Canc elled via OM: Order cancelled - Patient discharged Performed By: #### L 505.5000, L100.0100, L500.2500, L501.9100 #### [facility] [address] [place], [address] MCHC Normal 32-36 [facility] Comment on above: Result Comment: Canc elled via OM: Order cancelled - Patient discharged Performed By: #### L 505.5000, L100.0100, L500.2500, L501.9100 #### [facility] [address] [place], [address] MCV Normal 80-94 [facility] Comment on above: Result Comment: Canc elled via OM: Order cancelled - Patient discharged Performed By: #### L 505.5000, L100.0100, L500.2500, L501.9100 #### [facility] [address] [place], [address] NEUT% Normal 47-70 [facility] Comment on above: Result Comment: Canc elled via OM: Order cancelled - Patient discharged Performed By: #### L 505.5000, L100.0100, L500.2500, L501.9100 #### [facility] [address] [place], [address] PLT Normal 150-450 [facility] Comment on above: Result Comment: Canc elled via OM: Order cancelled - Patient discharged Performed By: #### L 505.5000, L100.0100, L500.2500, L501.9100 #### [facility] [address] [place], [address] RBC Normal 4.6-6.2 [facility] Comment on above: Result Comment: Canc elled via OM: Order cancelled - Patient discharged Performed By: #### L 505.5000, L100.0100, L500.2500, L501.9100 #### [facility] [address] [place], [address] RDW CV Normal 11.6-14.6 [facility] Comment on above: Result Comment: Canc elled via OM: Order cancelled - Patient discharged Performed By: #### L 505.5000, L100.0100, L500.2500, L501.9100 #### [facility] [address] [place], [address] RDW SD Normal 35.1-43.9 [facility] Comment on above: Result Comment: Canc elled via OM: Order cancelled - Patient discharged Performed By: #### L 505.5000, L100.0100, L500.2500, L501.9100 #### [facility] [address] [place], [address] WBC Normal 4.4-11.0 [facility] Comment on above: Result Comment: Canc elled via OM: Order cancelled - Patient discharged Performed By: #### L 505.5000, L100.0100, L500.2500, L501.9100 #### [facility] [address] [place], [address] Basic Metabolic Profile (BMP )on 02-11-2025 BUN Normal 4-19 [facility] Comment on above: Result Comment: Canc elled via OM: Order cancelled - Patient discharged Performed By: #### L 100.0500, L500.2500, L500.4100 #### [facility] [address] [place], [address] BUN/CRE Normal 10-20 [facility] Comment on above: Result Comment: Canc elled via OM: Order cancelled - Patient discharged Performed By: #### L 100.0500, L500.2500, L500.4100 #### [facility] [address] [place], [address] Calcium Normal 7.6-11.0 [facility] Comment on above: Result Comment: Canc elled via OM: Order cancelled - Patient discharged Performed By: #### L 100.0500, L500.2500, L500.4100 #### [facility] [address] [place], [address] CL Normal 98-108 [facility] Comment on above: Result Comment: Canc elled via OM: Order cancelled - Patient discharged Performed By: #### L 100.0500, L500.2500, L500.4100 #### [facility] [address] [place], [address] CO2 Normal 21.0-32.0 [facility] Comment on above: Result Comment: Canc elled via OM: Order cancelled - Patient discharged Performed By: #### L 100.0500, L500.2500, L500.4100 #### [facility] [address] [place], [address] CREAT,SERUM Normal 0.70-1.20 [facility] Comment on above: Result Comment: Canc elled via OM: Order cancelled - Patient discharged Performed By: #### L 100.0500, L500.2500, L500.4100 #### [facility] [address] [place], [address] eGFR Normal >60 [facility] Comment on above: Result Comment: Canc elled via OM: Order cancelled - Patient discharged Performed By: #### L 100.0500, L500.2500, L500.4100 #### [facility] [address] [place], [address] GAP Normal 5-15 [facility] Comment on above: Result Comment: Canc elled via OM: Order cancelled - Patient discharged Performed By: #### L 100.0500, L500.2500, L500.4100 #### [facility] [address] [place], [address] GLU Normal 70-99 [facility] Comment on above: Result Comment: Canc elled via OM: Order cancelled - Patient discharged Performed By: #### L 100.0500, L500.2500, L500.4100 #### [facility] [address] [place], [address] Potassium Normal 3.3-5.1 [facility] Comment on above: Result Comment: Canc elled via OM: Order cancelled - Patient discharged Performed By: #### L 100.0500, L500.2500, L500.4100 #### [facility] [address] [place], [address] Basic Metabolic Profile (BMP) Normal 133-145 [facility] Comment on above: Result Comment: Canc elled via OM: Order cancelled - Patient discharged Performed By: #### L 100.0500, L500.2500, L500.4100 #### [facility] [address] [place], [address] CBC W/Diff, Automatedon 08-0 -2024 Absolute Neut Normal 2.0-7.7 [facility] Comment on above: Result Comment: Canc elled via OM: Order cancelled - Patient discharged Performed By: #### L 100.0500, L500.2500, L500.4100 #### [facility] [address] [place], [address] HCT Normal 40-54 [facility] Comment on above: Result Comment: Canc elled via OM: Order cancelled - Patient discharged Performed By: #### L 100.0500, L500.2500, L500.4100 #### [facility] [address] [place], [address] HGB Normal 13.0-16.5 [facility] Comment on above: Result Comment: Canc elled via OM: Order cancelled - Patient discharged Performed By: #### L 100.0500, L500.2500, L500.4100 #### [facility] [address] [place], [address] MCH Normal 27.0-32.0 [facility] Comment on above: Result Comment: Canc elled via OM: Order cancelled - Patient discharged Performed By: #### L 100.0500, L500.2500, L500.4100 #### [facility] [address] [place], [address] MCHC Normal 32-36 [facility] Comment on above: Result Comment: Canc elled via OM: Order cancelled - Patient discharged Performed By: #### L 100.0500, L500.2500, L500.4100 #### [facility] [address] [place], [address] MCV Normal 80-94 [facility] Comment on above: Result Comment: Canc elled via OM: Order cancelled - Patient discharged Performed By: #### L 100.0500, L500.2500, L500.4100 #### [facility] [address] [place], [address] NEUT% Normal 47-70 [facility] Comment on above: Result Comment: Canc elled via OM: Order cancelled - Patient discharged Performed By: #### L 100.0500, L500.2500, L500.4100 #### [facility] [address] [place], [address] PLT Normal 150-450 [facility] Comment on above: Result Comment: Canc elled via OM: Order cancelled - Patient discharged Performed By: #### L 100.0500, L500.2500, L500.4100 #### [facility] [address] [place], [address] RBC Normal 4.6-6.2 [facility] Comment on above: Result Comment: Canc elled via OM: Order cancelled - Patient discharged Performed By: #### L 100.0500, L500.2500, L500.4100 #### [facility] [address] [place], [address] RDW CV Normal 11.6-14.6 [facility] Comment on above: Result Comment: Canc elled via OM: Order cancelled - Patient discharged Performed By: #### L 100.0500, L500.2500, L500.4100 #### [facility] [address] [place], [address] RDW SD Normal 35.1-43.9 [facility] Comment on above: Result Comment: Canc elled via OM: Order cancelled - Patient discharged Performed By: #### L 100.0500, L500.2500, L500.4100 #### [facility] [address] [place], [address] WBC Normal 4.4-11.0 [facility] Comment on above: Result Comment: Canc elled via OM: Order cancelled - Patient discharged Performed By: #### L 100.0500, L500.2500, L500.4100 #### [facility] [address] [place], [place], [address] Absolute lymphocyte countOrd ered By: Isadora Arndt on 02-10-2025 Lymphocytes Auto (Unsp spec) [#/Vol] 0.89 10*3/uL 0.83-4.51 [facility] Absolute neutrophil countOrd ered By: Isadora Arndt on 02-10-2025 Neutrophils (Bld) [#/Vol] 2.8 10*3/uL 2.0-7.7 [facility] Anion gap in Serum or Plasma Ordered By: Isadora Arndt on 02-10-2025 Anion gap [Moles/Vol] 11 mmol/L 5-15 [facility] Automated lymphocyte count a s percentage of total leukocytesOrdered By: Isadora Arndt on 02-10-2025 Lymphocytes/100 WBC Auto (Unsp spec) 20.9 % 19-41 [facility] BUN/creatinine ratioOrdered By: Isadora Arndt on 02-10-2025 Urea nitrogen/Creatinine [Mass ratio] 26.4 mg/mg High 05-02 [facility] Basic Metabolic Profile (BMP )on 02-10-2025 BUN/CRE 26.4 RATIO High 05-02 [facility] Comment on above: Performed By: #### L 505.5000, L100.0100, L500.2500, L501.9100 #### [facility] [address] [place], [address] Calcium [Mass/Vol] 8.6 mg/dL Normal 7.6-11.0 [facility] Comment on above: Performed By: #### L 505.5000, L100.0100, L500.2500, L501.9100 #### [facility] [address] [place], [address] Chloride [Moles/Vol] 106 mmol/L Normal 98-108 [facility] Comment on above: Performed By: #### L 505.5000, L100.0100, L500.2500, L501.9100 #### [facility] [address] [place], [address] CO2 [Moles/Vol] 21.5 mmol/L Normal 21.0-32.0 [facility] Comment on above: Performed By: #### L 505.5000, L100.0100, L500.2500, L501.9100 #### [facility] [address] [place], [address] Creatinine [Mass/Vol] 1.18 mg/dL Normal 0.70-1.20 [facility] Comment on above: Performed By: #### L 505.5000, L100.0100, L500.2500, L501.9100 #### [facility] [address] [place], [address] ECRCL 38.71 ml/min Low 50-250 [facility] Comment on above: Performed By: #### L 505.5000, L100.0100, L500.2500, L501.9100 #### [facility] [address] [place], [address] GAP 11 Normal 5-15 [facility] Comment on above: Performed By: #### L 505.5000, L100.0100, L500.2500, L501.9100 #### [facility] [address] [place], [address] GFR/1.73 sq M.predicted among non-blacks MDRD (S/P/Bld) [Vol rate/Area] 62 mL/min/{1.73_m2} Normal >60 [facility] Comment on above: Result Comment: mL/m in/1.73m2 CKD-EPI Creatinine Equation (2020) Performed By: #### L 505.5000, L100.0100, L500.2500, L501.9100 #### [facility] [address] [place], [address] Glucose [Mass/Vol] 99 mg/dL Normal 70-99 [facility] Comment on above: Performed By: #### L 505.5000, L100.0100, L500.2500, L501.9100 #### [facility] [address] [place], [address] Potassium [Moles/Vol] 3.5 mmol/L Normal 3.3-5.1 [facility] Comment on above: Performed By: #### L 505.5000, L100.0100, L500.2500, L501.9100 #### [facility] [address] [place], [address] Sodium [Moles/Vol] 138 mmol/L Normal 133-145 [facility] Comment on above: Performed By: #### L 505.5000, L100.0100, L500.2500, L501.9100 #### [facility] [address] [place], [address] Urea nitrogen [Mass/Vol] 31 mg/dL High 4-19 [facility] Comment on above: Performed By: #### L 505.5000, L100.0100, L500.2500, L501.9100 #### [facility] [address] [place], [address] Basophil percentageOrdered B y: Isadora Arndt on 02-10-2025 Basophils/100 WBC (Bld) 0.5 % 0-1 [facility] CBC W/Diff, Automatedon 07-3 1-2025 Absolute Lymph 0.89 X10 3/uL Normal 0.83-4.51 [facility] Comment on above: Performed By: #### L 505.5000, L100.0100, L500.2500, L501.9100 #### [facility] [address] [place], [address] Absolute Neut 2.8 X10 3/uL Normal 2.0-7.7 [facility] Comment on above: Performed By: #### L 505.5000, L100.0100, L500.2500, L501.9100 #### [facility] [address] [place], [address] Basophils/100 WBC (Bld) 0.5 % Normal 0-1 [facility] Comment on above: Performed By: #### L 505.5000, L100.0100, L500.2500, L501.9100 #### [facility] [address] [place], [address] Eosinophils/100 WBC (Bld) 0.9 % Normal 0-5 [facility] Comment on above: Performed By: #### L 505.5000, L100.0100, L500.2500, L501.9100 #### [facility] [address] [place], [address] Erythrocyte distribution width (RBC) [Ratio] 12.6 % Normal 11.6-14.6 [facility] Comment on above: Performed By: #### L 505.5000, L100.0100, L500.2500, L501.9100 #### [facility] [address] [place], [address] Hematocrit (Bld) [Volume fraction] 29.3 % Low 40-54 [facility] Comment on above: Performed By: #### L 505.5000, L100.0100, L500.2500, L501.9100 #### [facility] [address] [place], [address] Hemoglobin (Bld) [Mass/Vol] 10.2 g/dL Low 13.0-16.5 [facility] Comment on above: Performed By: #### L 505.5000, L100.0100, L500.2500, L501.9100 #### [facility] [address] [place], [address] IG% 0.700 Normal 0.0-0.9 [facility] Comment on above: Result Comment: IG% - Immature Granulocytes (promyelocytes, myelocytes and metamyelocytes) > 1% indicates that a LEFT SHIFT is Present. Performed By: #### L 505.5000, L100.0100, L500.2500, L501.9100 #### [facility] [address] [place], [address] Lymphocytes/100 WBC (Bld) 20.9 % Normal 19-41 [facility] Comment on above: Performed By: #### L 505.5000, L100.0100, L500.2500, L501.9100 #### [facility] [address] [place], [address] MCH (RBC) [Entitic mass] 32.1 pg High 27.0-32.0 [facility] Comment on above: Performed By: #### L 505.5000, L100.0100, L500.2500, L501.9100 #### [facility] [address] [place], [address] MCHC (RBC) [Mass/Vol] 34.8 g/dL Normal 32-36 [facility] Comment on above: Performed By: #### L 505.5000, L100.0100, L500.2500, L501.9100 #### [facility] [address] [place], [address] MCV (RBC) [Entitic vol] 92.1 fL Normal 80-94 [facility] Comment on above: Performed By: #### L 505.5000, L100.0100, L500.2500, L501.9100 #### [facility] [address] [place], [address] Monocytes/100 WBC (Bld) 10.1 % High 0-10 [facility] Comment on above: Performed By: #### L 505.5000, L100.0100, L500.2500, L501.9100 #### [facility] [address] [place], [address] Neutrophils/100 WBC (Bld) 66.9 % Normal 47-70 [facility] Comment on above: Performed By: #### L 505.5000, L100.0100, L500.2500, L501.9100 #### [facility] [address] [place], [address] Nucleated RBC (Bld) [#/Vol] 0 10*3/uL Normal 0-5 [facility] Comment on above: Performed By: #### L 505.5000, L100.0100, L500.2500, L501.9100 #### [facility] [address] [place], [address] Platelet mean volume (Bld) [Entitic vol] 11.6 fL Normal 6.2-12.0 [facility] Comment on above: Performed By: #### L 505.5000, L100.0100, L500.2500, L501.9100 #### [facility] [address] [place], [address] Platelets (Bld) [#/Vol] 107 10*3/uL Low 150-450 [facility] Comment on above: Performed By: #### L 505.5000, L100.0100, L500.2500, L501.9100 #### [facility] [address] [place], [address] RBC (Bld) [#/Vol] 3.18 10*6/uL Low 4.6-6.2 [facility] Comment on above: Performed By: #### L 505.5000, L100.0100, L500.2500, L501.9100 #### [facility] [address] [place], [address] RDW SD 42.1 fl Normal 35.1-43.9 [facility] Comment on above: Performed By: #### L 505.5000, L100.0100, L500.2500, L501.9100 #### [facility] [address] [place], [address] WBC (Bld) [#/Vol] 4.3 10*3/uL Low 4.4-11.0 [facility] Comment on above: Performed By: #### L 505.5000, L100.0100, L500.2500, L501.9100 #### [facility] [address] [place], [address] Carbon dioxide, total [Moles /volume] in Central venous bloodOrdered By: Isadora Arndt on 02-10-2025 CO2 [Moles/Vol] 21.5 mmol/L 21.0-32.0 [facility] Chloride assayOrdered By: Na na Hair on 02-10-2025 Chloride [Moles/Vol] 106 mmol/L 98-108 [facility] Eosinophil percentageOrdered By: Isadora Arndt on 02-10-2025 Eosinophils/100 WBC (Bld) 0.9 % 0-5 [facility] Erythrocyte distribution wid th ratioOrdered By: Isadora Arndt on 02-10-2025 Erythrocyte distribution width (RBC) [Ratio] 12.6 % 11.6-14.6 [facility] Erythrocyte distribution wid th standard deviationOrdered By: Isadora Arndt on 02-10-2025 Erythrocyte distribution width (RBC) [Ratio] 42.1 fl 35.1-43.9 [facility] Glomerular filtration rate ( GFR) estimation/1.73 sq m using serum, plasma, or whole bOrdered By: Isadora Arndt on 02-10-2025 GFR/1.73 sq M.predicted among non-blacks MDRD (S/P/Bld) [Vol rate/Area] 62 mL/min/{1.73_m2} >60 [facility] Comment on above: mL/min/1.73m2 CKD-EP I Creatinine Equation (2020) Hematocrit Auto (Bld) [Volum e fraction]Ordered By: Isadora Arndt on 02-10-2025 Hematocrit (Bld) [Volume fraction] 29.3 % Low 40-54 [facility] Hemoglobin measurementOrdere d By: Isadora Arndt on 02-10-2025 Hemoglobin (Bld) [Mass/Vol] 10.2 g/dL Low 13.0-16.5 [facility] Immature granulocytes/100 WB C Auto (Bld)Ordered By: Isadora Arndt on 02-10-2025 Immature granulocytes/100 WBC (Bld) 0.700 % 0.0-0.9 [facility] Comment on above: IG% - Immature Granu locytes (promyelocytes, myelocytes and metamyelocytes) > 1% indicates that a LEFT SHIFT is Present. MCV (mean corpuscular volume ) determinationOrdered By: Isadora Arndt 02-10-2025 MCV (RBC) [Entitic vol] 92.1 fL 80-94 [facility] Mean corpuscular hemoglobin (MCH) determinationOrdered By: Isadora Arndt 02-10-2025 MCH (RBC) [Entitic mass] 32.1 pg High 27.0-32.0 [facility] Mean corpuscular hemoglobin concentration (MCHC) determinationOrdered By: Isadora Arndt 02-10-2025 MCHC (RBC) [Mass/Vol] 34.8 g/dL 32-36 [facility] Mean platelet volume determi nationOrdered By: Isadora Arndt 02-10-2025 Platelet mean volume (Bld) [Entitic vol] 11.6 fL 6.2-12.0 [facility] Monocyte percentageOrdered B y: Isadora Arndt on 02-10-2025 Monocytes/100 WBC (Bld) 10.1 % High 0-10 [facility] Neutrophil percentageOrdered By: Isadora Arndt on 02-10-2025 Neutrophils/100 WBC (Bld) 66.9 % 47-70 [facility] Nucleated red blood cell per centageOrdered By: Isadora Arndt on 02-10-2025 Nucleated RBC/100 WBC (Bld) [Ratio] 0 % 0-5 [facility] Platelet countOrdered By: Tamar Arndt on 02-10-2025 Platelets (Bld) [#/Vol] 107 10*3/uL Low 150-450 [facility] Potassium measurement (mass/ volume)Ordered By: Isadora Arndt on 02-10-2025 Potassium (Unsp spec) [Mass/Vol] 3.5 mmol/L 3.3-5.1 [facility] RBC Auto (Bld) [#/Vol]Ordere d By: Isadora Arndt on 02-10-2025 RBC (Bld) [#/Vol] 3.18 10*6/uL Low 4.6-6.2 [facility] Serum creatinine measurement (mass/volume)Ordered By: Isadora Arndt on 02-10-2025 Creatinine [Mass/Vol] 1.18 mg/dL 0.70-1.20 [facility] Serum glucose measurement (m ass/volume)Ordered By: Isadora Arndt on 02-10-2025 Glucose [Mass/Vol] 99 mg/dL 70-99 [facility] Serum or plasma calcium diane urement (mass/volume)Ordered By: Isadora Arndt on 02-10-2025 Calcium [Mass/Vol] 8.6 mg/dL 7.6-11.0 [facility] Serum or plasma urea nitroge n measurement (mass/volume)Ordered By: Isadora Arndt on 02-10-2025 Urea nitrogen [Mass/Vol] 31 mg/dL High 4-19 [facility] Sodium levelOrdered By: Isadora Arndt on 02-10-2025 Sodium [Moles/Vol] 138 mmol/L 133-145 [facility] White blood cell (WBC) count Ordered By: Isadora Arndt on 02-10-2025 WBC (Bld) [#/Vol] 4.3 10*3/uL Low 4.4-11.0 [facility] Basic Metabolic Profile (BMP )on 02-09-2025 BUN/CRE 28.7 RATIO High 10-20 [facility] Comment on above: Performed By: #### L 100.0500, L500.2500, L500.4100 #### [facility] [address] [place], [address] Calcium [Mass/Vol] 8.4 mg/dL Normal 7.6-11.0 [facility] Comment on above: Performed By: #### L 100.0500, L500.2500, L500.4100 #### [facility] [address] [place], [address] Chloride [Moles/Vol] 107 mmol/L Normal 98-108 [facility] Comment on above: Performed By: #### L 100.0500, L500.2500, L500.4100 #### [facility] [address] [place], [address] CO2 [Moles/Vol] 20.2 mmol/L Low 21.0-32.0 [facility] Comment on above: Performed By: #### L 100.0500, L500.2500, L500.4100 #### [facility] [address] [place], [address] Creatinine [Mass/Vol] 1.08 mg/dL Normal 0.70-1.20 [facility] Comment on above: Performed By: #### L 100.0500, L500.2500, L500.4100 #### [facility] [address] [place], [address] ECRCL 42.29 ml/min Low 50-250 [facility] Comment on above: Performed By: #### L 100.0500, L500.2500, L500.4100 #### [facility] [address] [place], [address] GAP 12 Normal 5-15 [facility] Comment on above: Performed By: #### L 100.0500, L500.2500, L500.4100 #### [facility] [address] [place], [address] GFR/1.73 sq M.predicted among non-blacks MDRD (S/P/Bld) [Vol rate/Area] 69 mL/min/{1.73_m2} Normal >60 [facility] Comment on above: Result Comment: mL/m in/1.73m2 CKD-EPI Creatinine Equation (2020) Performed By: #### L 100.0500, L500.2500, L500.4100 #### [facility] [address] [place], [address] Glucose [Mass/Vol] 88 mg/dL Normal 70-99 [facility] Comment on above: Performed By: #### L 100.0500, L500.2500, L500.4100 #### [facility] [address] [place], [address] Potassium [Moles/Vol] 3.5 mmol/L Normal 3.3-5.1 [facility] Comment on above: Performed By: #### L 100.0500, L500.2500, L500.4100 #### [facility] [address] [place], [address] Sodium [Moles/Vol] 139 mmol/L Normal 133-145 [facility] Comment on above: Performed By: #### L 100.0500, L500.2500, L500.4100 #### [facility] [address] [place], [address] Urea nitrogen [Mass/Vol] 31 mg/dL High 4-19 [facility] Comment on above: Performed By: #### L 100.0500, L500.2500, L500.4100 #### [facility] [address] [place], [address] CBC-Complete Blood Cnt No Di ffon 02-09-2025 Erythrocyte distribution width (RBC) [Ratio] 12.6 % Normal 11.6-14.6 [facility] Comment on above: Performed By: #### L 100.0500, L500.2500, L500.4100 #### [facility] [address] [place], [address] Hematocrit (Bld) [Volume fraction] 30.8 % Low 40-54 [facility] Comment on above: Performed By: #### L 100.0500, L500.2500, L500.4100 #### [facility] [address] [place], [address] Hemoglobin (Bld) [Mass/Vol] 10.6 g/dL Low 13.0-16.5 [facility] Comment on above: Performed By: #### L 100.0500, L500.2500, L500.4100 #### [facility] [address] [place], [address] MCH (RBC) [Entitic mass] 31.8 pg Normal 27.0-32.0 [facility] Comment on above: Performed By: #### L 100.0500, L500.2500, L500.4100 #### [facility] [address] [place], [address] MCHC (RBC) [Mass/Vol] 34.4 g/dL Normal 32-36 [facility] Comment on above: Performed By: #### L 100.0500, L500.2500, L500.4100 #### [facility] [address] [place], [address] MCV (RBC) [Entitic vol] 92.5 fL Normal 80-94 [facility] Comment on above: Performed By: #### L 100.0500, L500.2500, L500.4100 #### [facility] [address] [place], [address] Platelet mean volume (Bld) [Entitic vol] 11.4 fL Normal 6.2-12.0 [facility] Comment on above: Performed By: #### L 100.0500, L500.2500, L500.4100 #### [facility] [address] [place], [address] Platelets (Bld) [#/Vol] 102 10*3/uL Low 150-450 [facility] Comment on above: Performed By: #### L 100.0500, L500.2500, L500.4100 #### [facility] [address] [place], [address] RBC (Bld) [#/Vol] 3.33 10*6/uL Low 4.6-6.2 [facility] Comment on above: Performed By: #### L 100.0500, L500.2500, L500.4100 #### [facility] [address] [place], [address] RDW SD 41.6 fl Normal 35.1-43.9 [facility] Comment on above: Performed By: #### L 100.0500, L500.2500, L500.4100 #### [facility] [address] [place], [address] WBC (Bld) [#/Vol] 3.8 10*3/uL Low 4.4-11.0 [facility] Comment on above: Performed By: #### L 100.0500, L500.2500, L500.4100 #### [facility] [address] [place], [address] Electrocardiogram reportOrde red By: Wolfgang Conde on 02-09-2025 EKG study [facility] Cardiovascular Services [address] [place] [address] 12 Lead EKG 02/08/25 1245 MR#: [id number] Acct: [id number] Name: SOPHIA CORTES Rep #:[id number] : 1940 84 From: Wolfgang Conde MD Attending Dr: Dr. Isadora Arndt MD Status: ADM MARCELA Ordering Dr: Michael Allen DO Date: Location: [place] Sex: M C Admitted: 02/08/25 Test Reason [...] Abnormal ECG Confirmed by ELTON REZA, WOLFGANG ([id number]), editorial cartoonist ZANA ROOT ([id number]) on 58:35:44 AM Referred By: Confirmed By: WOLFGANG CONDE MD 02/09/25 0835 Date _ Wolfgang Conde MD CC: Dr. Isadora Arndt MD; Dr. Michael Allen DO; No Primary Care Physician ~ Signed [facility] Work Phone: Testicular with Arterial Diego won 02-09-2025 Testicular with Arterial Flow [facility] Imaging Services [address] [place] [id number] Testicular with Arterial Flow MR#: [id number] Acct: [id number] Name: SOPHIA CORTES Rep #: [id number] : 1940 M 84 From: Alekasndr lazo MD PCP: Care Physician,No Primary Status: ADM MARCELA Study: Testicular with Arterial Flow Date of Exam: Exam# [id number] Ordering Dr: Isadora Arndt MD PROCEDURE: TESTICULAR [...] as described. Small left hydrocele. Reading Location: [id number] CC: Dr. Isadora Arndt MD; No Primary Care Physician [employer] P[employer]her: Signed Normal [facility] 12 Lead EKGon 02-08-2025 12 Lead EKG [facility] Cardiovascular Services [address] [place] [address] 12 Lead EKG 02/08/25 1245 MR#: [id number] Acct: [id number] Name: SOPHIA CORTES Rep #: [id number] : 1940 84 From: Wolfgang Conde MD Attending Dr: Dr. Isadora Arndt MD Status: AD M MARCELA Ordering Dr: Michael Allen DO Date: 02/08/25 [place] [facility] [place] M C Admitted: 02/08/25 Test Reason [...] Abnormal ECG Confirmed by WOLFGANG CONDE MD ([id number]), editorial cartoonist ZANA ROOT ([id number]) on 02/09/2025 8:35:44 AM Referred By: Confirmed By: WOLFGANG CONDE MD 02/09/25 0835 Date Wolfgang Conde MD CC: Dr. Isadora Arndt MD; Dr. Michael Allen, DO; No Primary Care Physician Signed Normal [facility] Absolute lymphocyte countOrd ered By: Michael Allen on 02-08-2025 Lymphocytes Auto (Unsp spec) [#/Vol] 0.74 10*3/uL Low 0.83-4.51 [facility] Absolute neutrophil countOrd ered By: Michael Allen on 02-08-2025 Neutrophils (Bld) [#/Vol] 4.0 10*3/uL 2.0-7.7 [facility] Anion gap in Serum or Plasma Ordered By: Michael Allen on 02-08-2025 Anion gap [Moles/Vol] 14 mmol/L 5-15 [facility] Automated lymphocyte count a s percentage of total leukocytesOrdered By: Michael Allen on 02-08-2025 Lymphocytes/100 WBC Auto (Unsp spec) 13.6 % Low 19-41 [facility] BUN/creatinine ratioOrdered By: Michael Allen on 02-08-2025 Urea nitrogen/Creatinine [Mass ratio] 23.5 mg/mg High 10-20 [facility] Basophil percentageOrdered B y: Michael Allen on 02-08-2025 Basophils/100 WBC (Bld) 0.2 % 0-1 [facility] Bilirubin Test strip Ql (U)O rdered By: Michael Allen on 02-08-2025 Bilirubin Ql (U) Negative Negative [facility] Bilirubin, totalOrdered By: [facility] on 02-08-2025 Bilirubin [Mass/Vol] 1.16 mg/dL 0.00-1.30 [facility] Brain/Head without Contrasto n 02-08-2025 Brain/Head without Contrast [facility] Imaging Services [address] [place], [place] [id number] Brain/Head without Contrast MR#: [id number] Acct: [id number] Name: SOPHIA CORTES Hector Rep #: [id number] : 1940 M 84 From: Emilio Sullivan MD PCP: Care Physician,No Primary Status: REG ER Study: Brain/Head without Contrast Date of Exam: 01/12 04/07 Exam# [id number] Ordering Dr: Michael Allen DO EXAM: NONCONTRAST [...] Michael Allen DO; No Primary Care Physician [employer] P[employer]her: Signed Normal [facility] CBC W/Diff, Automatedon 01-12 Absolute Lymph 0.74 X10 3/uL Low 0.83-4.51 [facility] Comment on above: Performed By: #### L 100.0100, L500.4050 #### [facility] [address] [place], [address] Absolute Neut 4.0 X10 3/uL Normal 2.0-7.7 [facility] Comment on above: Performed By: #### L 100.0100, L500.4050 #### [facility] [address] [place], [address] Basophils/100 WBC (Bld) 0.2 % Normal 0-1 [facility] Comment on above: Performed By: #### L 100.0100, L500.4050 #### [facility] [address] [place], [address] Eosinophils/100 WBC (Bld) 0.7 % Normal 0-5 [facility] Comment on above: Performed By: #### L 100.0100, L500.4050 #### [facility] [address] [place], [address] Erythrocyte distribution width (RBC) [Ratio] 12.8 % Normal 11.6-14.6 [facility] Comment on above: Performed By: #### L 100.0100, L500.4050 #### [facility] [address] [place], [address] Hematocrit (Bld) [Volume fraction] 35.5 % Low 40-54 [facility] Comment on above: Performed By: #### L 100.0100, L500.4050 #### [facility] [address] [place], [address] Hemoglobin (Bld) [Mass/Vol] 12.1 g/dL Low 13.0-16.5 [facility] Comment on above: Performed By: #### L 100.0100, L500.4050 #### [facility] [address] [place], [address] IG% 0.400 Normal 0.0-0.9 [facility] Comment on above: Result Comment: IG% - Immature Granulocytes (promyelocytes, myelocytes and metamyelocytes) > 1% indicates that a LEFT SHIFT is Present. Performed By: #### L 100.0100, L500.4050 #### [facility] [address] [place], [address] Lymphocytes/100 WBC (Bld) 13.6 % Low 19-41 [facility] Comment on above: Performed By: #### L 100.0100, L500.4050 #### [facility] [address] [place], [address] MCH (RBC) [Entitic mass] 31.8 pg Normal 27.0-32.0 [facility] Comment on above: Performed By: #### L 100.0100, L500.4050 #### [facility] [address] [place], [address] MCHC (RBC) [Mass/Vol] 34.1 g/dL Normal 32-36 [facility] Comment on above: Performed By: #### L 100.0100, L500.4050 #### [facility] [address] [place], [address] MCV (RBC) [Entitic vol] 93.2 fL Normal 80-94 [facility] Comment on above: Performed By: #### L 100.0100, L500.4050 #### [facility] [address] [place], [address] Monocytes/100 WBC (Bld) 10.7 % High 0-10 [facility] Comment on above: Performed By: #### L 100.0100, L500.4050 #### [facility] [address] [place], [address] Neutrophils/100 WBC (Bld) 74.4 % High 47-70 [facility] Comment on above: Performed By: #### L 100.0100, L500.4050 #### [facility] [address] [place], [address] Nucleated RBC (Bld) [#/Vol] 0 10*3/uL Normal 0-5 [facility] Comment on above: Performed By: #### L 100.0100, L500.4050 #### [facility] [address] [place], [address] Platelet mean volume (Bld) [Entitic vol] 11.4 fL Normal 6.2-12.0 [facility] Comment on above: Performed By: #### L 100.0100, L500.4050 #### [facility] [address] [place], [address] Platelets (Bld) [#/Vol] 121 10*3/uL Low 150-450 [facility] Comment on above: Performed By: #### L 100.0100, L500.4050 #### [facility] [address] [place], [address] RBC (Bld) [#/Vol] 3.81 10*6/uL Low 4.6-6.2 [facility] Comment on above: Performed By: #### L 100.0100, L500.4050 #### [facility] [address] [place], [address] RDW SD 43.7 fl Normal 35.1-43.9 [facility] Comment on above: Performed By: #### L 100.0100, L500.4050 #### [facility] [address] [place], [address] WBC (Bld) [#/Vol] 5.4 10*3/uL Normal 4.4-11.0 [facility] Comment on above: Performed By: #### L 100.0100, L500.4050 #### [facility] [address] [place], [address] Carbon dioxide, total [Moles /volume] in Central venous bloodOrdered By: Michael Allen on 02-08-2025 CO2 [Moles/Vol] 21.7 mmol/L 21.0-32.0 [facility] Chest 1 View (Portable)on Chest 1 View (Portable) [facility] Imaging Services [address] [place] [address] Chest 1 View (Portable) MR#: [id number] Acct: [id number] Name: SOPHIA CORTES Hector Rep #: [id number] : 1940 M 84 From: Tomi Lindsay MD PCP: Care Physician,No Primary Status: REG ER Study: Chest 1 View (Portable) Date of Exam: 02/08/25 Exam# [id number] Ordering Dr: Michael Allen DO EXAM: XR [...] IMPRESSION: No acute cardiopulmonary process. Reading [facility] CC: Dr. Michael Allen DO; No Primary Care Physician [employer] Erecting Pusher: Signed Normal [facility] Chloride assayOrdered By: Briana Allen on 02-08-2025 Chloride [Moles/Vol] 102 mmol/L 98-108 [facility] Comprehensive Metabolic Prof ilon 02-08-2025 Albumin [Mass/Vol] 3.9 g/dL Normal 3.4-4.8 [facility] Comment on above: Performed By: #### L 100.0100, L500.4050 #### [facility] [address] [facility] [place], [address] Albumin/Globulin [Mass ratio] 1.4 {ratio} Normal 0.9-2.4 [facility] Comment on above: Performed By: #### L 100.0100, L500.4050 #### [facility] [address] [place], [address] ALK PHOS 91 U/L Normal 40-129 [facility] Comment on above: Performed By: #### L 100.0100, L500.4050 #### [facility] [address] [place], [address] ALT [Catalytic activity/Vol] 9 U/L Normal <=46 [facility] Comment on above: Performed By: #### L 100.0100, L500.4050 #### [facility] [address] [place], [address] AST [Catalytic activity/Vol] 19 U/L Normal <=37 [facility] Comment on above: Performed By: #### L 100.0100, L500.4050 #### [facility] [address] [place], [address] Bilirubin [Mass/Vol] 1.16 mg/dL Normal 0.00-1.30 [facility] Comment on above: Performed By: #### L 100.0100, L500.4050 #### [facility] [address] [place], [address] BUN/CRE 23.5 RATIO High 10-20 [facility] Comment on above: Performed By: #### L 100.0100, L500.4050 #### [facility] [address] [place], [address] Calcium [Mass/Vol] 9.2 mg/dL Normal 7.6-11.0 [facility] Comment on above: Performed By: #### L 100.0100, L500.4050 #### [facility] [address] [place], [address] Chloride [Moles/Vol] 102 mmol/L Normal 98-108 [facility] Comment on above: Performed By: #### L 100.0100, L500.4050 #### [facility] [address] [place], [address] CO2 [Moles/Vol] 21.7 mmol/L Normal 21.0-32.0 [facility] Comment on above: Performed By: #### L 100.0100, L500.4050 #### [facility] [address] [place], [address] Creatinine [Mass/Vol] 1.64 mg/dL High 0.70-1.20 [facility] Comment on above: Performed By: #### L 100.0100, L500.4050 #### [facility] [address] [place], [address] ECRCL 27.90 ml/min Low 50-250 [facility] Comment on above: Performed By: #### L 100.0100, L500.4050 #### [facility] [address] [place], [address] GAP 14 Normal 5-15 [facility] Comment on above: Performed By: #### L 100.0100, L500.4050 #### [facility] [address] [place], [address] GFR/1.73 sq M.predicted among non-blacks MDRD (S/P/Bld) [Vol rate/Area] 42 mL/min/{1.73_m2} Low >60 [facility] Comment on above: Result Comment: mL/m in/1.73m2 CKD-EPI Creatinine Equation (2020) Performed By: #### L 100.0100, L500.4050 #### [facility] [address] [place], [address] Globulin (S) [Mass/Vol] 2.8 g/dL Normal 2.2-4.2 [facility] Comment on above: Performed By: #### L 100.0100, L500.4050 #### [facility] [address] [place], [address] Glucose [Mass/Vol] 132 mg/dL High 70-99 [facility] Comment on above: Performed By: #### L 100.0100, L500.4050 #### [facility] [address] [place], [address] Potassium [Moles/Vol] 3.7 mmol/L Normal 3.3-5.1 [facility] Comment on above: Performed By: #### L 100.0100, L500.4050 #### [facility] [address] [place], [address] Sodium [Moles/Vol] 137 mmol/L Normal 133-145 [facility] Comment on above: Performed By: #### L 100.0100, L500.4050 #### [facility] [address] [place], [address] T PROT 6.7 g/dL Normal 5.9-8.4 [facility] Comment on above: Performed By: #### L 100.0100, L500.4050 #### [facility] [address] [place], [address] Urea nitrogen [Mass/Vol] 39 mg/dL High 4-19 [facility] Comment on above: Performed By: #### L 100.0100, L500.4050 #### [facility] [address] [place], [address] Emergency Department Summary on 02-08-2025 Emergency Department Summary [facility] Medical Records Department [address] [place] [address] Emergency Department Summary 02/08/25 MR#: [id number] Acct: [id number] Name: SOPHIA CORTES Rep #: [id number] : 1940 84 From: Michael Allen DO PCP: Care Physician,No Primary Status:ADM MARCELA Location: [address] History of Present Illness Chief Complaint: General Illness Detail of Chief Complaint: Failure to thrive and needing usp placement Informant: patient and family Narrative Narrative: Patient presents to the emergency department with his sister. He apparently is not doing well at home and lives alone. She feels he needs usp placement. Patient recently admitted to a psychiatric facility for suicidal ideation on January 23. Patient has history of some dementia. Sister has medical power of employee benefits attorney for him. He is not eating and drinking normally. He is answering some questions but not really having conversations. Sister does not feel he can care for himself. He developed a slight cough a few days ago. [facility] Medical History (Updated 02/08/25 @ 13:[address] 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 Normal [facility] Eosinophil percentageOrdered By: Michael Allen on 02-08-2025 Eosinophils/100 WBC (Bld) 0.7 % 0-5 [facility] Erythrocyte distribution wid th ratioOrdered By: Michael Allen on 02-08-2025 Erythrocyte distribution width (RBC) [Ratio] 12.8 % 11.6-14.6 [facility] Erythrocyte distribution wid th standard deviationOrdered By: Michael Allen on 02-08-2025 Erythrocyte distribution width (RBC) [Ratio] 43.7 fl 35.1-43.9 [facility] Glomerular filtration rate ( GFR) estimation/1.73 sq m using serum, plasma, or whole bOrdered By: Michael Allen on 02-08-2025 GFR/1.73 sq M.predicted among non-blacks MDRD (S/P/Bld) [Vol rate/Area] 42 mL/min/{1.73_m2} Low >60 [facility] Comment on above: mL/min/1.73m2 CKD-EP I Creatinine Equation (2020) H AND P Exam - [place] 02-08-2025 H&P Exam - Hospitalist [facility] Medical Records Department [address] [place] [address] H P Exam - Hospitalist 02/08/25 1345 MR#: [id number] Acct: [id number] Name: SOPHIA CORTES Rep #: [id number] : 1940 84 From: Ajith Zimmer DO PCP: Care Physician,No Primary Status:ADM MARCELA Location: [place] [id number] HPI - General General Date of Admission: 02/08/25 Date of Service: 02/08/25 Chief Complaint: Failure to thrive HPI Narrative SOPHIA CORTES, is a 84 M who presented to [facility] ED on 02/08/2025 with adult failure to thrive. Patient lives at home alone. He was recently seen in the ED here on 01/23 for suicidal ideation and was admitted to a psychiatric facility for this. Has history of dementia and sister is medical power of employee benefits attorney. Medical history otherwise significant for CAD [...] currently. Will be admitted for further management. 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 Normal [facility] Hematocrit Auto (Bld) [Volum e fraction]Ordered By: Michael Allen on 02-08-2025 Hematocrit (Bld) [Volume fraction] 35.5 % Low 40-54 [facility] Hemoglobin measurementOrdere d By: Michael Allen on 02-08-2025 Hemoglobin (Bld) [Mass/Vol] 12.1 g/dL Low 13.0-16.5 [facility] Immature granulocytes/100 WB C Auto (Bld)Ordered By: Michael Allen on 02-08-2025 Immature granulocytes/100 WBC (Bld) 0.400 % 0.0-0.9 [facility] Comment on above: IG% - Immature Granu locytes (promyelocytes, myelocytes and metamyelocytes) > 1% indicates that a LEFT SHIFT is Present. Influenza virus A and B and SARS-CoV-2 (COVID-19) and Respiratory syncytial virus RNAOrdered By: Michael Allen on 02-08-2025 SARS-CoV-2 (COVID-19) RNA JEAN+probe Ql (Unsp spec) [facility] Ketones Test strip Ql (U)Ord ered By: Michael Allen on 02-08-2025 Ketones Ql (U) 5 mg/dl High Negative [facility] Laboratory - Chemistry and C hemistry - challengeOrdered By: Michael Allen on 02-08-2025 AST [Catalytic activity/Vol] 19 U/L <38 [facility] M100.678on 02-08-2025 M100.678 SARS-CoV-2 (COVID 19) Negative INFLUENZA A Negative INFLUENZA B Negative RSV PCR Negative Normal [facility] Comment on above: Performed By: #### L 100.0500, L500.2500, L500.4100 #### [facility] Laboratory [address] [place], [place], [id number] MCV (mean corpuscular volume ) determinationOrdered By: Michael Allen on 02-08-2025 MCV (RBC) [Entitic vol] 93.2 fL 80-94 [facility] Mean corpuscular hemoglobin (MCH) determinationOrdered By: Michael Allen on 02-08-2025 MCH (RBC) [Entitic mass] 31.8 pg 27.0-32.0 [facility] Mean corpuscular hemoglobin concentration (MCHC) determinationOrdered By: Michael Allen on 02-08-2025 MCHC (RBC) [Mass/Vol] 34.1 g/dL 32-36 [facility] Mean platelet volume determi nationOrdered By: Michael Allen on 02-08-2025 Platelet mean volume (Bld) [Entitic vol] 11.4 fL 6.2-12.0 [facility] Microscopic analysis of urin e for red blood cells (RBC)Ordered By: Michael Allen on 02-08-2025 Microscopic analysis of urine for red blood cells (RBC) 0 SEEN /hpf 0-5 [facility] Monocyte percentageOrdered B y: Michael Allen on 02-08-2025 Monocytes/100 WBC (Bld) 10.7 % High 0-10 [facility] Mucus LM Ql (Urine sed)Order ed By: Michael Allen on 02-08-2025 Mucus Ql (Urine sed) 0 SEEN /hpf [facility] Neutrophil percentageOrdered By: Michael Allen on 02-08-2025 Neutrophils/100 WBC (Bld) 74.4 % High 47-70 [facility] Nitrite Test strip Ql (U)Ord ered By: Michael Allen on 02-08-2025 Nitrite Ql (U) Negative Negative [facility] Nucleated red blood cell per centageOrdered By: Michael Allen on 02-08-2025 Nucleated RBC/100 WBC (Bld) [Ratio] 0 % 0-5 [facility] Platelet countOrdered By: Briana Allen on 02-08-2025 Platelets (Bld) [#/Vol] 121 10*3/uL Low 150-450 [facility] Potassium measurement (mass/ volume)Ordered By: Michael Allen on 02-08-2025 Potassium (Unsp spec) [Mass/Vol] 3.7 mmol/L 3.3-5.1 [facility] Protein Test strip Ql (U)Ord ered By: Michael Allen on 02-08-2025 Protein Ql (U) 30 mg/dl High Negative [facility] RBC Auto (Bld) [#/Vol]Ordere d By: Michael Allen on 02-08-2025 RBC (Bld) [#/Vol] 3.81 10*6/uL Low 4.6-6.2 [facility] Serum creatinine measurement (mass/volume)Ordered By: Michael Allen on 02-08-2025 Creatinine [Mass/Vol] 1.64 mg/dL High 0.70-1.20 [facility] Serum globulin measurementOr dered By: Michael Allen on 02-08-2025 Globulin (S) [Mass/Vol] 2.8 g/dL 2.2-4.2 [facility] Serum glucose measurement (m ass/volume)Ordered By: Michael Allen on 02-08-2025 Glucose [Mass/Vol] 132 mg/dL High 70-99 [facility] Serum or plasma alanine rutledge otransferase (ALT) measurementOrdered By: Michael Allen on 02-08-2025 ALT [Catalytic activity/Vol] 9 U/L <47 [facility] Serum or plasma albumin diane urement (mass/volume)Ordered By: Michael Allen on 02-08-2025 Albumin [Mass/Vol] 3.9 g/dL 3.4-4.8 [facility] Serum or plasma albumin/glob ulin mass ratioOrdered By: Michael Braggkar on 02-08-2025 Albumin/Globulin [Mass ratio] 1.4 {ratio} 0.9-2.4 [facility] Serum or plasma alkaline albin sphatase measurementOrdered By: Michael Braggkar on 02-08-2025 ALP [Catalytic activity/Vol] 91 U/L 40-129 [facility] Serum or plasma calcium diane urement (mass/volume)Ordered By: Michael Braggkar on 02-08-2025 Calcium [Mass/Vol] 9.2 mg/dL 7.6-11.0 [facility] Serum or plasma urea nitroge n measurement (mass/volume)Ordered By: Michael Braggkar on 02-08-2025 Urea nitrogen [Mass/Vol] 39 mg/dL High 4-19 [facility] Sodium levelOrdered By: Wei Braggkar on 02-08-2025 Sodium [Moles/Vol] 137 mmol/L 133-145 [facility] Squamous epithelial cells de tection in urine sediment by light microscopyOrdered By: Michael Braggkar on 02-08-2025 Epithelial cells.squamous LM Ql (Urine sed) 0-5 SEEN /hpf 0-5 [facility] Total proteinOrdered By: Sheila Braggkar on 02-08-2025 Protein [Mass/Vol] 6.7 g/dL 5.9-8.4 [facility] Urinalysis, Completeon 02-08 EPI,SQUAMOUS 0-5 SEEN Normal 0-5 [facility] Comment on above: Order Comment: 110-1 Performed By: #### L 100.0500, L500.2500, L500.4100 #### [facility] [address] [place], [address] BACTERIA 0 SEEN Normal None Seen [facility] Comment on above: Order Comment: 110-1 Performed By: #### L 100.0500, L500.2500, L500.4100 #### [facility] [address] [place], [address] Mucus Ql (Urine sed) 0 SEEN Normal [facility] Comment on above: Order Comment: 110-1 Performed By: #### L 100.0500, L500.2500, L500.4100 #### [facility] [address] [place], [address] RBC 0 SEEN Normal 0-5 [facility] Comment on above: Order Comment: 110-1 Performed By: #### L 100.0500, L500.2500, L500.4100 #### [facility] [address] [place], [address] WBC 0 SEEN Normal 0-5 [facility] Comment on above: Order Comment: 110-1 Performed By: #### L 100.0500, L500.2500, L500.4100 #### [facility] [address] [place], [address] Urine clarityOrdered By: Sheila Allen on 02-08-2025 Clarity (U) Clear Clear [facility] Urine color determinationOrd ered By: Michael Allen on 02-08-2025 Color (U) Yellow Yellow [facility] Urine glucose detectionOrder ed By: Michael Allen on 02-08-2025 Glucose Ql (U) Normal mg/dl Normal [facility] Urine leukocyte esterase det ection by dipstickOrdered By: Michael Allen on 02-08-2025 Leukocyte esterase Test strip Ql (U) Negative Negative [facility] Urine pHOrdered By: Michael Un gur on 02-08-2025 pH (U) 5.0 [pH] 5.0 - 8.0 [facility] Urine sediment bacteria coun t by microscopy (number/high power field)Ordered By: Michael Allen on 02-08-2025 Bacteria LM.HPF (Urine sed) [#/Area] 0 /[HPF] None Seen [facility] Urine specific gravity measu rementOrdered By: Michael Allen on 02-08-2025 Specific gravity (U) [Rel density] 1.025 1.002-1.030 [facility] Urine urobilinogen measureme ntOrdered By: Michael Allen on 02-08-2025 Urobilinogen Ql (U) 1 mg/dl High Normal [facility] White blood cell (WBC) count Ordered By: Michael Allen on 02-08-2025 WBC (Bld) [#/Vol] 5.4 10*3/uL 4.4-11.0 [facility] White blood cell countOrdere d By: Michael Allen on 02-08-2025 White blood cell count 0 SEEN /hpf 0-5 [facility] Absolute lymphocyte countOrd ered By: Henry Florentino on 01-23-2025 Lymphocytes Auto (Unsp spec) [#/Vol] 1.32 10*3/uL 0.83-4.51 [facility] Absolute neutrophil countOrd ered By: Henry Florentino on 01-23-2025 Neutrophils (Bld) [#/Vol] 2.5 10*3/uL 2.0-7.7 [facility] Alcohol, Blood (Medical)-Ser umon 01-23-2025 SERUM ETOH < 10.1 Normal <=10.0 [facility] Comment on above: Result Comment: This test is for medical purposes only. The legal definition of intoxication varies according to local law. Performed By: #### L 505.5000, L100.0100, L500.2500, L501.9100 #### [facility] [address] [place], [address] Amphetamine detection with 1 000 ng/mL as cutoffOrdered By: Henry Florentino on 01-23-2025 Amphetamines Screen method >1000 ng/mL Ql (U) Negative < 200 ng/mL [facility] Anion gap in Serum or Plasma Ordered By: Henry Florentino on 01-23-2025 Anion gap [Moles/Vol] 13 mmol/L 5-15 [facility] Automated lymphocyte count a s percentage of total leukocytesOrdered By: Henry Florentino on 01-23-2025 Lymphocytes/100 WBC Auto (Unsp spec) 31.2 % 19-41 [facility] BUN/creatinine ratioOrdered By: Henry Florentino on 01-23-2025 Urea nitrogen/Creatinine [Mass ratio] 17.6 mg/mg - [facility] Basic Metabolic Profile (BMP )on 01-23-2025 BUN/CRE 17.6 RATIO Normal - [facility] Comment on above: Performed By: #### L 505.5000, L100.0100, L500.2500, L501.9100 #### [facility] [address] [place], [address] Calcium [Mass/Vol] 8.9 mg/dL Normal 7.6-11.0 [facility] Comment on above: Performed By: #### L 505.5000, L100.0100, L500.2500, L501.9100 #### [facility] [address] [place], [address] Chloride [Moles/Vol] 103 mmol/L Normal 98-108 [facility] Comment on above: Performed By: #### L 505.5000, L100.0100, L500.2500, L501.9100 #### [facility] [address] [place], [address] CO2 [Moles/Vol] 19.9 mmol/L Low 21.0-32.0 [facility] Comment on above: Performed By: #### L 505.5000, L100.0100, L500.2500, L501.9100 #### [facility] [address] [place], [address] Creatinine [Mass/Vol] 1.53 mg/dL High 0.70-1.20 [facility] Comment on above: Performed By: #### L 505.5000, L100.0100, L500.2500, L501.9100 #### [facility] [address] [place], [address] ECRCL 28.48 ml/min Low 50-250 [facility] Comment on above: Performed By: #### L 505.5000, L100.0100, L500.2500, L501.9100 #### [facility] [address] [place], [address] GAP 13 Normal 5-15 [facility] Comment on above: Performed By: #### L 505.5000, L100.0100, L500.2500, L501.9100 #### [facility] [address] [place], [address] GFR/1.73 sq M.predicted among non-blacks MDRD (S/P/Bld) [Vol rate/Area] 45 mL/min/{1.73_m2} Low >60 [facility] Comment on above: Result Comment: mL/m in/1.73m2 CKD-EPI Creatinine Equation (2020) Performed By: #### L 505.5000, L100.0100, L500.2500, L501.9100 #### [facility] [address] [place], [address] Glucose [Mass/Vol] 130 mg/dL High 70-99 [facility] Comment on above: Performed By: #### L 505.5000, L100.0100, L500.2500, L501.9100 #### [facility] [address] [place], [address] Potassium [Moles/Vol] 3.9 mmol/L Normal 3.3-5.1 [facility] Comment on above: Performed By: #### L 505.5000, L100.0100, L500.2500, L501.9100 #### [facility] [address] [place], [address] Sodium [Moles/Vol] 136 mmol/L Normal 133-145 [facility] Comment on above: Performed By: #### L 505.5000, L100.0100, L500.2500, L501.9100 #### [facility] [address] [place], [address] Urea nitrogen [Mass/Vol] 27 mg/dL High 4-19 [facility] Comment on above: Performed By: #### L 505.5000, L100.0100, L500.2500, L501.9100 #### [facility] [address] [place], [address] Basophil percentageOrdered B y: Henry Florentino on 01-23-2025 Basophils/100 WBC (Bld) 0.2 % 0-1 [facility] Bilirubin Test strip Ql (U)O rdered By: Henry Florentino on 01-23-2025 Bilirubin Ql (U) Negative Negative [facility] Brain/Head without Contrasto n 01-23-2025 Brain/Head without Contrast [facility] Imaging Services [address] [facility] [address] [place], [place] [id number] Brain/Head without Contrast MR#: [id number] Acct: [id number] Name: SOPHIA CORTES Rep #: [id number] : 1940 M 84 From: Brian Alvarez MD PCP: Care Physician,No Primary Status: REG ER Study: Brain/Head without Contrast Date of Exam: 01/11 10/05 Exam# [id number] Ordering Dr: Moises Florentino DO PROCEDURE: BRAIN/HEAD [...] Contrast IMPRESSION: NO ACUTE FINDINGS Reading Location: [id number] CC: Dr. Henry Florentino, DO; No Primary Care Physician [employer]: Signed Normal [facility] CBC W/Diff, Automatedon 01-11-2024 Absolute Lymph 1.32 X10 3/uL Normal 0.83-4.51 [facility] Comment on above: Performed By: #### L 505.5000, L100.0100, L500.2500, L501.9100 #### [facility] [address] [place], [address] Absolute Neut 2.5 X10 3/uL Normal 2.0-7.7 [facility] Comment on above: Performed By: #### L 505.5000, L100.0100, L500.2500, L501.9100 #### [facility] [address] [place], [address] Basophils/100 WBC (Bld) 0.2 % Normal 0-1 [facility] Comment on above: Performed By: #### L 505.5000, L100.0100, L500.2500, L501.9100 #### [facility] [address] [place], [address] Eosinophils/100 WBC (Bld) 1.7 % Normal 0-5 [facility] Comment on above: Performed By: #### L 505.5000, L100.0100, L500.2500, L501.9100 #### [facility] [address] [place], [address] Erythrocyte distribution width (RBC) [Ratio] 12.2 % Normal 11.6-14.6 [facility] Comment on above: Performed By: #### L 505.5000, L100.0100, L500.2500, L501.9100 #### [facility] [address] [place], [address] Hematocrit (Bld) [Volume fraction] 34.1 % Low 40-54 [facility] Comment on above: Performed By: #### L 505.5000, L100.0100, L500.2500, L501.9100 #### [facility] [address] [place], [address] Hemoglobin (Bld) [Mass/Vol] 11.8 g/dL Low 13.0-16.5 [facility] Comment on above: Performed By: #### L 505.5000, L100.0100, L500.2500, L501.9100 #### [facility] [address] [place], [address] IG% 0.200 Normal 0.0-0.9 [facility] Comment on above: Result Comment: IG% - Immature Granulocytes (promyelocytes, myelocytes and metamyelocytes) > 1% indicates that a LEFT SHIFT is Present. Performed By: #### L 505.5000, L100.0100, L500.2500, L501.9100 #### [facility] [address] [place], [address] Lymphocytes/100 WBC (Bld) 31.2 % Normal 19-41 [facility] Comment on above: Performed By: #### L 505.5000, L100.0100, L500.2500, L501.9100 #### [facility] [address] [place], [address] MCH (RBC) [Entitic mass] 31.7 pg Normal 27.0-32.0 [facility] Comment on above: Performed By: #### L 505.5000, L100.0100, L500.2500, L501.9100 #### [facility] [address] [place], [address] MCHC (RBC) [Mass/Vol] 34.6 g/dL Normal 32-36 [facility] Comment on above: Performed By: #### L 505.5000, L100.0100, L500.2500, L501.9100 #### [facility] [address] [place], [address] MCV (RBC) [Entitic vol] 91.7 fL Normal 80-94 [facility] Comment on above: Performed By: #### L 505.5000, L100.0100, L500.2500, L501.9100 #### [facility] [address] [place], [address] Monocytes/100 WBC (Bld) 8.7 % Normal 0-10 [facility] Comment on above: Performed By: #### L 505.5000, L100.0100, L500.2500, L501.9100 #### [facility] [address] [place], [address] Neutrophils/100 WBC (Bld) 58.0 % Normal 47-70 [facility] Comment on above: Performed By: #### L 505.5000, L100.0100, L500.2500, L501.9100 #### [facility] [address] [place], [address] Nucleated RBC (Bld) [#/Vol] 0 10*3/uL Normal 0-5 [facility] Comment on above: Performed By: #### L 505.5000, L100.0100, L500.2500, L501.9100 #### [facility] [address] [place], [address] Platelet mean volume (Bld) [Entitic vol] 12.1 fL High 6.2-12.0 [facility] Comment on above: Performed By: #### L 505.5000, L100.0100, L500.2500, L501.9100 #### [facility] [address] [place], [address] Platelets (Bld) [#/Vol] 136 10*3/uL Low 150-450 [facility] Comment on above: Performed By: #### L 505.5000, L100.0100, L500.2500, L501.9100 #### [facility] [address] [place], [address] RBC (Bld) [#/Vol] 3.72 10*6/uL Low 4.6-6.2 [facility] Comment on above: Performed By: #### L 505.5000, L100.0100, L500.2500, L501.9100 #### [facility] [address] [place], [address] RDW SD 41.1 fl Normal 35.1-43.9 [facility] Comment on above: Performed By: #### L 505.5000, L100.0100, L500.2500, L501.9100 #### [facility] [address] [place], [address] WBC (Bld) [#/Vol] 4.2 10*3/uL Low 4.4-11.0 [facility] Comment on above: Performed By: #### L 505.5000, L100.0100, L500.2500, L501.9100 #### [facility] [address] [place], [address] Carbon dioxide, total [Moles /volume] in Central venous bloodOrdered By: Henry Florentino on 01-23-2025 CO2 [Moles/Vol] 19.9 mmol/L Low 21.0-32.0 [facility] Chloride assayOrdered By: Dinh Florentino on 01-23-2025 Chloride [Moles/Vol] 103 mmol/L 98-108 [facility] Emergency Department Summary on 01-23-2025 Emergency Department Summary [facility] Medical Records Department [address] [place] [address] Emergency Department Summary 01/23/25 MR#: [id number] Acct: [id number] Name: SOPHIA CORTES Rep #: [id number] : 1940 84 From: Henry Florentino DO [...] oriented, grossly intact, sensation intact Psych: Uncooperative [facility] Medical History (Updated 05/10/24 @ 15:22 by Marcelino Arizmendi CURTAIN FITTER, CURTAIN FITTER-C) 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 Normal [facility] Eosinophil percentageOrdered By: Henry Florentino on 01-23-2025 Eosinophils/100 WBC (Bld) 1.7 % 0-5 [facility] Erythrocyte distribution wid th ratioOrdered By: [facility] on 01-23-2025 Erythrocyte distribution width (RBC) [Ratio] 12.2 % 11.6-14.6 [facility] Erythrocyte distribution wid th standard deviationOrdered By: [facility] on 01-23-2025 Erythrocyte distribution width (RBC) [Ratio] 41.1 fl 35.1-43.9 [facility] Glomerular filtration rate ( GFR) estimation/1.73 sq m using serum, plasma, or whole bOrdered By: [facility] GFR/1.73 sq M.predicted among non-blacks MDRD (S/P/Bld) [Vol rate/Area] 45 mL/min/{1.73_m2} Low >60 [facility] Comment on above: mL/min/1.73m2 CKD-EP I Creatinine Equation (2020) Hematocrit Auto (Bld) [Volum e fraction]Ordered By: Henry Florentino on 01-23-2025 Hematocrit (Bld) [Volume fraction] 34.1 % Low 40-54 [facility] Hemoglobin measurementOrdere d By: [facility] on 01-23-2025 Hemoglobin (Bld) [Mass/Vol] 11.8 g/dL Low 13.0-16.5 [facility] Immature granulocytes/100 WB C Auto (Bld)Ordered By: Henryvinayak Florentino on 01-23-2025 Immature granulocytes/100 WBC (Bld) 0.200 % 0.0-0.9 [facility] Comment on above: IG% - Immature Granu locytes (promyelocytes, myelocytes and metamyelocytes) > 1% indicates that a LEFT SHIFT is Present. Ketones Test strip Ql (U)Ord ered By: Henry Florentino on 01-23-2025 Ketones Ql (U) Negative Negative [facility] MCV (mean corpuscular volume ) determinationOrdered By: Henry Florentino on 01-23-2025 MCV (RBC) [Entitic vol] 91.7 fL 80-94 [facility] Mean corpuscular hemoglobin (MCH) determinationOrdered By: Henry Florentino on 01-23-2025 MCH (RBC) [Entitic mass] 31.7 pg 27.0-32.0 [facility] Mean corpuscular hemoglobin concentration (MCHC) determinationOrdered By: Henry Florentino on 01-23-2025 MCHC (RBC) [Mass/Vol] 34.6 g/dL 32-36 [facility] Mean platelet volume determi nationOrdered By: Henry Florentino on 01-23-2025 Platelet mean volume (Bld) [Entitic vol] 12.1 fL High 6.2-12.0 [facility] Microscopic analysis of urin e for red blood cells (RBC)Ordered By: Henry Florentino on 01-23-2025 Microscopic analysis of urine for red blood cells (RBC) 0-5 SEEN /hpf 0-5 [facility] Monocyte percentageOrdered B y: Henry Florentino on 01-23-2025 Monocytes/100 WBC (Bld) 8.7 % 0-10 [facility] Mucus LM Ql (Urine sed)Order ed By: Henry Florentino on 01-23-2025 Mucus Ql (Urine sed) 0 SEEN /hpf [facility] Neutrophil percentageOrdered By: Henry Florentino on 01-23-2025 Neutrophils/100 WBC (Bld) 58.0 % 47-70 [facility] Nitrite Test strip Ql (U)Ord ered By: Henry Florentino on 01-23-2025 Nitrite Ql (U) Negative Negative [facility] No Panel InformationOrdered By: Henry Florentino on 01-23-2025 Urine Buprenorphine Qualitative Negative < 200 ng/mL [facility] Urine Oxycodone Screen Negative < 100 ng/mL [facility] Nucleated red blood cell per centageOrdered By: Henry Florentino on 01-23-2025 Nucleated RBC/100 WBC (Bld) [Ratio] 0 % 0-5 [facility] Platelet countOrdered By: Dinh Florentino on 01-23-2025 Platelets (Bld) [#/Vol] 136 10*3/uL Low 150-450 [facility] Potassium measurement (mass/ volume)Ordered By: Henry Florentino on 01-23-2025 Potassium (Unsp spec) [Mass/Vol] 3.9 mmol/L 3.3-5.1 [facility] Protein Test strip Ql (U)Ord ered By: Henry Florentino on 01-23-2025 Protein Ql (U) 30 mg/dl High Negative [facility] Quantitative urine opiates m easurementOrdered By: Henry Florentino on 01-23-2025 Opiates Ql (U) Negative < 300 ng/mL [facility] RBC Auto (Bld) [#/Vol]Ordere d By: Henry Florentino on 01-23-2025 RBC (Bld) [#/Vol] 3.72 10*6/uL Low 4.6-6.2 [facility] [place] fentanyl kelley surementOrdered By: Henry Florentino on 01-23-2025 fentaNYL Screen Ql (U) Negative [facility] Serum creatinine measurement (mass/volume)Ordered By: Henry Florentino on 01-23-2025 Creatinine [Mass/Vol] 1.53 mg/dL High 0.70-1.20 [facility] Serum glucose measurement (m ass/volume)Ordered By: Henry Florentino on 01-23-2025 Glucose [Mass/Vol] 130 mg/dL High 70-99 [facility] Serum or plasma calcium diane urement (mass/volume)Ordered By: Henry Figueroa on 01-23-2025 Calcium [Mass/Vol] 8.9 mg/dL 7.6-11.0 [facility] Serum or plasma ethanol diane urement (mass/volume)Ordered By: Henry Figueroa on 01-23-2025 Ethanol [Mass/Vol] mg/dL <10.1 [facility] Comment on above: This test is for med ical purposes only. The legal definition of intoxication varies according to local law. Serum or plasma urea nitroge n measurement (mass/volume)Ordered By: Henry Florentino on 01-23-2025 Urea nitrogen [Mass/Vol] 27 mg/dL High 4-19 [facility] Sodium levelOrdered By: Moises Florentino on 01-23-2025 Sodium [Moles/Vol] 136 mmol/L 133-145 [facility] Squamous epithelial cells de tection in urine sediment by light microscopyOrdered By: Henry Florentino on 01-23-2025 Epithelial cells.squamous LM Ql (Urine sed) 0 SEEN /hpf 0-5 [facility] Urinalysis, Completeon 01-23 RBC 0-5 SEEN Normal 0-5 [facility] Comment on above: Order Comment: SAAD CTOR TO SPECIFY Performed By: #### L 400.0001 #### [facility] [address] [place], [place], [id number] BACTERIA 0 SEEN Normal None Seen [facility] Comment on above: Order Comment: SAAD CTOR TO SPECIFY Performed By: #### L 400.0001 #### [facility] [address] [place], [address] EPI,SQUAMOUS 0 SEEN Normal 0-5 [facility] Comment on above: Order Comment: SAAD CTOR TO SPECIFY Performed By: #### L 400.0001 #### [facility] [address] [place], [address] Mucus Ql (Urine sed) 0 SEEN Normal [facility] Comment on above: Order Comment: SAAD CTOR TO SPECIFY Performed By: #### L 400.0001 #### [facility] [address] [place], [address] WBC 0 SEEN Normal 0-5 [facility] Comment on above: Order Comment: COLLE CTOR TO SPECIFY Performed By: #### L 400.0001 #### [facility] [address] [place], [address] Urine Drug Screen (VISTA)on 01-23-2025 AMPHETAMINES Negative Normal <1000 ng/mL [facility] Comment on above: Performed By: #### L 505.5000, L100.0100, L500.2500, L501.9100 #### [facility] [address] [place], [address] BARBITIURATES Negative Normal < 200 ng/mL [facility] Comment on above: Performed By: #### L 505.5000, L100.0100, L500.2500, L501.9100 #### [facility] [address] [place], [address] BENZODIAZIPINE Negative Normal < 200 ng/mL [facility] Comment on above: Performed By: #### L 505.5000, L100.0100, L500.2500, L501.9100 #### [facility] [address] [place], [address] BUP Ur Drug Scr Negative Normal < 200 ng/mL [facility] Comment on above: Performed By: #### L 505.5000, L100.0100, L500.2500, L501.9100 #### [facility] [address] [place], [address] COCAINE Negative Normal < 300 ng/mL [facility] Comment on above: Performed By: #### L 505.5000, L100.0100, L500.2500, L501.9100 #### [facility] [address] [place], [address] Fentanyl Negative Normal [facility] Comment on above: Performed By: #### L 505.5000, L100.0100, L500.2500, L501.9100 #### [facility] [address] [place], [address] METHADONE Negative Normal < 300 ng/mL [facility] Comment on above: Performed By: #### L 505.5000, L100.0100, L500.2500, L501.9100 #### [facility] [address] [place], [address] OPIATES Negative Normal < 300 ng/mL [facility] Comment on above: Performed By: #### L 505.5000, L100.0100, L500.2500, L501.9100 #### [facility] [address] [place], [address] OXYCODONE Negative Normal < 100 ng/mL [facility] Comment on above: Performed By: #### L 505.5000, L100.0100, L500.2500, L501.9100 #### [facility] [address] [place], [address] PCP Negative Normal < 25 ng/mL [facility] Comment on above: Performed By: #### L 505.5000, L100.0100, L500.2500, L501.9100 #### [facility] [address] [place], [address] THC Negative Normal < 50 ng/mL [facility] Comment on above: Performed By: #### L 505.5000, L100.0100, L500.2500, L501.9100 #### [facility] [address] [place], [address] Urine benzodiazepine levelOr dered By: Henry Florentino on 01-23-2025 Benzodiazepines Ql (U) Negative < 200 ng/mL [facility] Urine clarityOrdered By: Ben Florentino on 01-23-2025 Clarity (U) Clear Clear [facility] Urine cocaine levelOrdered B y: Henry Florentino on 01-23-2025 Cocaine Ql (U) Negative < 300 ng/mL [facility] Urine color determinationOrd ered By: Henry Florentino on 01-23-2025 Color (U) Yellow Yellow [facility] Urine uyvyv-8-esukeznwqqlhoi abinol (THC) measurementOrdered By: Henry Figueroa on 01-23-2025 Cannabinoids Screen Ql (U) Negative < 50 ng/mL [facility] Urine glucose detectionOrder ed By: Henry Florentino on 01-23-2025 Glucose Ql (U) Normal mg/dl Normal [facility] Urine leukocyte esterase det ection by dipstickOrdered By: Henry Florentino on 01-23-2025 Leukocyte esterase Test strip Ql (U) Negative Negative [facility] Urine pHOrdered By: Henry Hale on 01-23-2025 pH (U) 5.0 [pH] 5.0 - 8.0 [facility] Urine phencyclidine (PCP) de tectionOrdered By: Henry Florentino on 01-23-2025 Phencyclidine Ql (U) Negative < 25 ng/mL [facility] Urine sediment bacteria coun t by microscopy (number/high power field)Ordered By: Henry Florentino on 01-23-2025 Bacteria LM.HPF (Urine sed) [#/Area] 0 /[HPF] None Seen [facility] Urine specific gravity measu rementOrdered By: Henry Florentino on 01-23-2025 Specific gravity (U) [Rel density] 1.025 1.002-1.030 [facility] Urine urobilinogen measureme ntOrdered By: Henry Florentino on 01-23-2025 Urobilinogen Ql (U) Normal mg/dl Normal [facility] White blood cell (WBC) count Ordered By: Henry Florentino on 01-23-2025 WBC (Bld) [#/Vol] 4.2 10*3/uL Low 4.4-11.0 [facility] White blood cell countEliezere d By: Henry Florentino on 01-23-2025 White blood cell count 0 SEEN /hpf 0-5 [facility] Cardiology Visit Reporton Cardiology Visit Report [facility] 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 Normal [facility] Pacemaker Checkon 12-01-2024 Pacemaker Check [facility] [place] [address] Pacemaker Check Date of Service: 12/01/241713 MR#: [id number] Acct: [id number] Name: SOPHIA CORTES Rep #: [id number] : 1940 From: Toya Herrera Age/Sex: 83/M [place] [facility] Status: Signed Billing Codes ICD Device Billin ICD Dev Prog Eval, Dual Assessment and Plan Assessment and Plan (1) Ischemic cardiomyopathy: Status: Chronic (2) Presence of automatic implantable cardioverter-defibr illator: Status: Chronic Comment: [employer]ner[employer] ICD Dual Chamber (3) NSVT (nonsustained ventricular tachycardia): Status: Chronic 12/01/241713 Date Toya Chandlerignfarzaneh Signature: Date (if applicable) CC: Normal [facility] Cardiology Visit Reporton Cardiology Visit Report [facility] [address] [place], [place] [address] OFFICE VISIT Date of Service: 05/10/24 MR#: [id number] Acct: [id number] Name: SOPHIA CORTES Rep #: [id number] : 1940 Provider: TOMAS rushing Age/Sex: 83/M Location: [facility] Status: Signed HPI HPI History of [...] M FU ICD f/u @ 2:30pm Activities Manager Required: No Accompanied by: Sister Is patient [...] doesn't know what medications that he takes. 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 Normal [facility] Pacemaker Checkon 05-10-2024 Pacemaker Check [facility] [address] [place] [address]. [address] [place] [address] Pacemaker Check Date of Service: 05/10/24 1503 MR#: [id number] Acct: [id number] Name: SOPHIA CORTES Rep #: [id number] : 1940 From: Toya Herrera Age/Sex: 83/M Location: [facility] Status: Signed Billing Codes ICD Device Billin ICD Dev Prog Eval, Dual Assessment and Plan Assessment and Plan (1) Ischemic cardiomyopathy: Status: Chronic (2) Presence of automatic implantable cardioverter-defibr illator: Status: Chronic Comment: [employer] Energen ICD Dual Chamber (3) Bradycardia: Status: Chronic 05/10/24 1504 Date Toya Chandlerignfarzaneh Signature: Date (if applicable) CC: Normal [facility] Absolute lymphocyte countOrd ered By: Marcelino Arizmendi on 11-10-2023 Lymphocytes Auto (Unsp spec) [#/Vol] 1.08 10*3/uL 0.83-4.51 [facility] Automated lymphocyte count a s percentage of total leukocytesOrdered By: Marcelino Arizmendi on 11-10-2023 Lymphocytes/100 WBC Auto (Unsp spec) 19.5 % 19-41 [facility] Basophil percentageOrdered B y: Marcelino Arizmendi on 11-10-2023 Basophils/100 WBC (Bld) 0.4 % 0-1 [facility] Bilirubin [Mass/Vol] 1.20 mg/dL 0.20-1.00 [facility] Comment on above: For patients on eltr ombopag therapy, use of Dimension [place] TBIL is not recommended. Chloride [Moles/Vol] 107 mmol/L 98-107 [facility] Eosinophils/100 WBC (Bld) 0.9 % 0-5 [facility] Glucose [Mass/Vol] 97 mg/dL 74-106 [facility] Hemoglobin (Bld) [Mass/Vol] 14.0 g/dL 13.0-16.5 [facility] Monocytes/100 WBC (Bld) 7.9 % 0-10 [facility] Neutrophils (Bld) [#/Vol] 4.0 10*3/uL 2.0-7.7 [facility] Neutrophils/100 WBC (Bld) 71.1 % 47-70 [facility] Potassium [Moles/Vol] 4.3 mmol/L 3.5-5.1 [facility] Protein [Mass/Vol] 7.6 g/dL 6.4-8.2 [facility] Sodium [Moles/Vol] 137 mmol/L 136-145 [facility] WBC (Bld) [#/Vol] 5.6 10*3/uL 4.4-11.0 [facility] Blood manual differential co mment interpretation (narrative result)Ordered By: Marcelino Kyleigh on 11-10-2023 Manual differential comment Eduardo (Bld) [Interp] SCANNED [facility] Comment on above: Please note: For [...] 11-10-2023 Platelets LM Ql (Bld) ADEQUATE ADEQ [facility] Determination of erythrocyte mean corpuscular volume (MCV)Ordered By: Marcelino Arizmendi on 11-10-2023 MCV (RBC) [Entitic vol] 93.6 fL 80-94 [facility] Erythrocyte distribution wid th ratioOrdered By: Marcelino Arizmendi on 11-10-2023 Erythrocyte distribution width (RBC) [Ratio] 13.4 % 11.6-14.6 [facility] Erythrocyte distribution wid th standard deviationOrdered By: Marcelino Arizmendi on 11-10-2023 Erythrocyte distribution width (RBC) [Entitic vol] 45.7 fL 35.1-43.9 [facility] Hematocrit Auto (Bld) [Volum e fraction]Ordered By: Marcelino Arizmendi on 11-10-2023 Hematocrit (Bld) [Volume fraction] 42.7 % 40-54 [facility] Immature granulocytes/100 WB C Auto (Bld)Ordered By: Marcelino Arizmendi on 11-10-2023 Immature granulocytes/100 WBC (Bld) 0.200 % 0.0-0.9 [facility] Comment on above: IG% - Immature Granu locytes (promyelocytes, myelocytes and metamyelocytes) > 1% indicates that a LEFT SHIFT is Present. Laboratory - Chemistry and C hemistry - challengeOrdered By: Marcelino Arizmendi on 11-10-2023 Albumin/Globulin [Mass ratio] 1.1 {ratio} 0.9-2.4 [facility] ALP [Catalytic activity/Vol] 71 U/L 45-117 [facility] ALT [Catalytic activity/Vol] 19 U/L 16-61 [facility] CO2 [Moles/Vol] 21.0 mmol/L 21.0-32.0 [facility] Globulin (S) [Mass/Vol] 3.7 g/dL 2.2-4.2 [facility] Magnesium [Mass/Vol] 2.3 mg/dL 1.6-2.6 [facility] Urea nitrogen/Creatinine [Mass ratio] 15.7 mg/mg 10-20 [facility] Laboratory - Hematology and Cell countsOrdered By: Marcelino Arizmendi on 11-10-2023 MCH (RBC) [Entitic mass] 30.7 pg 27.0-32.0 [facility] MCHC (RBC) [Mass/Vol] 32.8 g/dL 32-36 [facility] Nucleated RBC/100 WBC (Bld) [Ratio] 0 % 0-5 [facility] Platelet mean volume (Bld) [Entitic vol] 11.2 fL 6.2-12.0 [facility] No Panel InformationOrdered By: Marcelino Arizmendi on 11-10-2023 Estimated GFR (MDRD) Amer 70 mL/min >60 [facility] Comment on above: GFR Calc Estimated GFR (MDRD) Non-Af Amer 58 mL/min >60 [facility] Comment on above: Non- GFR Calc Platelet Count TNP [facility] Comment on above: Test not performedPl [...] 11-10-2023 RBC (Bld) [#/Vol] 4.56 10*6/uL 4.6-6.2 [facility] Serum or plasma calcium diane urement (mass/volume)Ordered By: Marcelino Arizmendi on 11-10-2023 Calcium [Mass/Vol] 9.1 mg/dL 8.5-10.1 [facility] Serum or plasma creatinine m easurement (mass/volume)Ordered By: Marcelino Arizmendi on 11-10-2023 Creatinine [Mass/Vol] 1.27 mg/dL 0.70-1.30 [facility] Comment on above: The validity of the calculated GFR & GFRAA in patients over 70 years has not been determined. Clinical correlation is essential. Serum or plasma thyroid stim ulating hormone (TSH) measurement (units/volume)Ordered By: Marcelino Arizmendi on 11-10-2023 TSH Qn 1.52 uIU/mL 0.358-3.74 [facility] Serum or plasma urea nitroge n measurement (mass/volume)Ordered By: Marcelino Arizmendi on 11-10-2023 Urea nitrogen [Mass/Vol] 20 mg/dL 7-18 [facility] Thin prep Papanicolaou smear with manual screeningOrdered By: Marcelino Arizmendi on 11-10-2023 Thin prep Papanicolaou smear with manual screening 3.9 g/dL 3.2-5.0 [facility] Thin prep Papanicolaou smear with manual screening 23 U/L 15-37 [facility] Thin prep Papanicolaou smear with manual screening 9 5-15 [facility] Thin prep Papanicolaou smear with manual screening 1.24 ng/dL 0.76-1.46 [facility] Basophil percentageOrdered B y: Marcelino Arizmendi on 10-22-2023 Bilirubin [Mass/Vol] 0.90 mg/dL 0.20-1.00 [facility] Comment on above: For patients on eltr ombopag therapy, use of Dimension [place] TBIL is not recommended. Cholesterol [Mass/Vol] 171 mg/dL <200 [facility] Comment on above: <200 mg/dL Desirable 200-240 mg/dL Borderline >240 mg/dL High Risk Protein [Mass/Vol] 6.8 g/dL 6.4-8.2 [facility] Triglyceride [Mass/Vol] 96 mg/dL <199 [facility] Comment on above: The drugs N-Acetylcy steine and Metamizole may falsely depress this assay.Serum Triglycerides Reference Interval Normal <150 mg/dL Borderline high 150 - 199 mg/dL High 200 - 499 mg/dL Very High > or = 500 mg/dL Direct bilirubinOrdered By: Marcelino Arizmendi on 10-22-2023 Bilirubin.direct [Mass/Vol] 0.19 mg/dL 0.00-0.30 [facility] Laboratory - Chemistry and C hemistry - challengeOrdered By: Marcelino Arizmendi on 10-22-2023 ALP [Catalytic activity/Vol] 65 U/L 45-117 [facility] ALT [Catalytic activity/Vol] 16 U/L 16-61 [facility] Cholesterol in HDL [Mass/Vol] 47 mg/dL >40 [facility] Comment on above: The drugs N-Acetylcy steine and Metamizole may falsely depress this assay. Reference Range HDL <40 mg/dL Low HDL Cholesterol HDL >or= 60 mg/dL High HDL Cholesterol Cholesterol in LDL [Mass/Vol] 105 mg/dL 0-130 [facility] Globulin (S) [Mass/Vol] 3.3 g/dL 2.2-4.2 [facility] No Panel InformationOrdered By: Marcelino Arizmendi on 10-22-2023 VLDL Cholesterol 19 mg/dL 5-40 [facility] Thin prep Papanicolaou smear with manual screeningOrdered By: Marcelino Arizmendi on 10-22-2023 Thin prep Papanicolaou smear with manual screening 3.5 g/dL 3.2-5.0 [facility] Thin prep Papanicolaou smear with manual screening 18 U/L 15-37 [facility] Lab Report: Lipid Profileon 06-19-2017 Cholesterol 79 mg/dL Invalid Interpretation Code 200 [place] [employer] Work Phone: [phone] HDL Cholesterol 54 mg/dL Invalid Interpretation Code [place] [employer] Work Phone: [phone] LDL Cholesterol 17 mg/dL Invalid Interpretation Code 0-130 [place] [employer] Work Phone: [phone] Triglyceride 40 mg/dL Invalid Interpretation Code [place] [employer] Work Phone: [phone] very low density lipoproteins 8 mg/dL Invalid Interpretation Code 5-40 [place] [employer] Work Phone: [phone] Lab Report: Liver Profileon 06-19-2017 Alanine aminotransferase (ALT) 21 U/L Invalid Interpretation Code 12-78 [place] [employer] Work Phone: [phone] Albumin 3.6 g/dL Invalid Interpretation Code 3.4-5.0 [place] [employer] Work Phone: [phone] Alkaline phosphatase (ALP) 83 U/L Invalid Interpretation Code 45-117 [place] [employer] Work Phone: [phone] Aspartate aminotransferase (AST) 25 U/L Invalid Interpretation Code 15-37 [place] [employer] Work Phone: [phone] Bilirubin (direct) 0.30 mg/dL Invalid Interpretation Code 0.00-0.30 [place] [employer] Work Phone: [phone] Bilirubin (total) 1.00 mg/dL Invalid Interpretation Code 0.20-1.00 [place] [employer] Work Phone: [phone] Globulin 2.8 g/dL Invalid Interpretation Code 2.2-4.2 [facility] Work Phone: [phone] Protein 6.4 g/dL Invalid Interpretation Code 6.4-8.2 [employer] Phone: [phone] Office Visiton 12-19-2016 Documentation of current medications (procedure) Done Invalid Interpretation Code [employer] Phone: [phone] Fall risk assessment No Invalid Interpretation Code [employer] Phone: [phone] Protein mass conc Done [employer] Phone: [phone] Lab Report: Lipid Profileon 12-06-2016 Cholesterol 87 mg/dL Invalid Interpretation Code 200 [employer] Work Phone: [phone] HDL Cholesterol 49 mg/dL Invalid Interpretation Code [employer] Phone: [phone] LDL Cholesterol 23 mg/dL Invalid Interpretation Code 0-130 [employer] Phone: [phone] Triglyceride 73 mg/dL Invalid Interpretation Code [employer] Phone: [phone] very low density lipoproteins 15 mg/dL Invalid Interpretation Code 5-40 [employer] Work Phone: [phone] Lab Report: Liver Profileon 12-06-2016 Alanine aminotransferase (ALT) 20 U/L Invalid Interpretation Code 12-78 [employer] Phone: [phone] Albumin 3.6 g/dL Invalid Interpretation Code 3.4-5.0 [employer] Phone: [phone] Alkaline phosphatase (ALP) 77 U/L Invalid Interpretation Code 45-117 [employer] Phone: [phone] ALP (Bld) [Catalytic activity/Vol] 77 U/L 45-117 [employer] Phone: [phone] Aspartate aminotransferase (AST) 20 U/L Invalid Interpretation Code 15-37 [employer] Phone: [phone] Bilirubin (direct) 0.24 mg/dL Invalid Interpretation Code 0.00-0.30 [employer] Phone: [phone] Bilirubin (total) 0.90 mg/dL Invalid Interpretation Code 0.20-1.00 [employer] Phone: [phone] Globulin 2.9 g/dL Invalid Interpretation Code 2.3-3.5 [place] Work Phone: [phone] Globulin (S) [Mass/Vol] 2.9 g/dL 2.3-3.5 [facility] [employer] Work Phone: [phone] Protein 6.5 g/dL Invalid Interpretation Code 6.4-8.2 [facility] Phone: [phone] Office Visiton 12-19-2015 Documentation of current medications (procedure) Done Invalid Interpretation Code [employer] Work Phone: [phone] Clinical Lists Update: 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 residential 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 12-13-2015 Left ventricular Ejection fraction 30 % Invalid Interpretation Code [employer] Work Phone: [phone] Lab Report: Basic Metabolic Profile (BMP)on 06-20-2015 Anion gap 8 mmol/L Invalid Interpretation Code 5-15 [facility] Work Phone: [phone] Anion gap [Moles/Vol] 8 mmol/L 5-15 [facility] [employer] Work Phone: [phone] BUN/Creatinine Ratio 17.5 RATIO Invalid Interpretation Code 10-20 [facility] [employer] Work Phone: [phone] Calcium 8.6 mg/dL Invalid Interpretation Code 8.5-10.1 [employer] Work Phone: [phone] Chloride 106 mmol/L Invalid Interpretation Code 98-107 [facility] [employer] Phone: [phone] CO2 27.0 mmol/L Invalid Interpretation Code 21.0-32.0 [employer] Work Phone: [phone] CO2 (BldV) [Partial pressure] 27.0 mmol/L 21.0-32.0 [employer] Work Phone: [phone] Creatinine 0.91 mg/dL Invalid Interpretation Code 0.70-1.30 [employer] Work Phone: [phone] eGFR (non-black) 87 mL/min/{1.73_m2} Invalid Interpretation Code >60 [employer] Work Phone: [phone] eGFR (non-black) 105 mL/min/{1.73_m2} Invalid Interpretation Code >60 [employer] Work Phone: EST GFR - AA 105 mL/min >60 [facility] Work Phone: [phone] Glucose 87 mg/dL Invalid Interpretation Code 70-110 [facility] Work Phone: [phone] Glucose [Mass/Vol] 87 mg/dL Invalid Interpretation Code 70-110 [facility] Work Phone: [phone] Potassium 4.3 mmol/L Invalid Interpretation Code 3.5-5.1 [facility] Work Phone: [phone] Sodium 141 mmol/L Invalid Interpretation Code 136-145 [facility] Work Phone: [phone] Urea nitrogen 16 mg/dL Invalid Interpretation Code 7-18 [facility] Work Phone: [phone] Lab Report: CBC W/Diff, Auto matedon 06-20-2015 Absolute Neut 3.2 X10 3/UL Invalid Interpretation Code 2.0-7.7 [facility] Work Phone: [phone] Basophils/100 leukocytes 0.2 % Invalid Interpretation Code 0-1 [facility] Work Phone: [phone] Basophils/100 WBC (Bld) 0.2 % 0-1 [facility] Work Phone: [phone] Eosinophils/100 leukocytes 1.1 % Invalid Interpretation Code 0-5 [facility] Work Phone: [phone] Eosinophils/100 WBC (Bld) 1.1 % 0-5 [facility] Work Phone: [phone] Erythrocyte distribution width (RBC) [Ratio] 43.2 fL 35.1-43.9 [facility] Work Phone: [phone] Erythrocyte distribution width (RBC) [Ratio] 12.1 % 11.6-14.6 [facility] Work Phone: [phone] Erythrocytes (RBC) 4.22 10*6/uL Low 4.6-6.[address] [facility] Work Phone: [phone] Hematocrit (Bld) [Volume fraction] 41.8 % 40-54 [facility] Work Phone: [phone] Hematocrit (HCT) 41.8 % Invalid Interpretation Code 40-54 [facility] Work Phone: Hemoglobin (HGB) 14.1 g/dL Invalid Interpretation Code 13.0-16.5 [facility] Work Phone: [phone] Immature granulocytes (Bld) [#/Vol] 0.200 % 0.0-0.9 [facility] Work Phone: [phone] immature granulocytes, percentage of total cells, blood 0.200 % Invalid Interpretation Code 0.0-0.9 [facility] Work Phone: [phone] Immature granulocytes/100 WBC (Bld) 0.200 % Invalid Interpretation Code 0.0-0.9 [facility] Work Phone: 1() Lymphocytes 0.80 X10 3/UL Low 0.83-4.51 [facility] Work Phone: [phone]() Lymphocytes (Bld) [#/Vol] 0.80 X10 3/UL Low 0.83-4.51 [facility] Work Phone: [phone] Lymphocytes/100 leukocytes 18.2 % Low 19-41 [facility] Work Phone: 1() Lymphocytes/100 WBC (Bld) 18.2 % Low 19-41 [facility] Work Phone: [phone]() 00 MCH 33.4 pg High 27.0-32.0 [facility] Work Phone: [phone]() MCH (RBC) [Entitic mass] 33.4 pg High 27.0-32.0 [facility] Work Phone: [phone]() 00 MCHC 33.7 G/GL Invalid Interpretation Code 32-36 [facility] Work Phone: [phone] MCHC (RBC) [Mass/Vol] 33.7 G/GL 32-36 [facility] Work Phone: 1() 00 MCV 99.1 fL High 80-94 [facility] Work Phone: [phone] MCV (RBC) [Entitic vol] 99.1 fL High 80-94 [facility] Work Phone: [phone] Monocytes/100 leukocytes 8.4 % Invalid Interpretation Code 0-10 [facility] Work Phone: [phone] Monocytes/100 WBC (Bld) 8.4 % 0-10 [facility] Work Phone: [phone] neutrophil count, blood 3.2 X10 3/UL Invalid Interpretation Code 2.0-7.7 [facility] Work Phone: [phone] Neutrophils (Bld) [#/Vol] 3.2 X10 3/UL 2.0-7.7 [facility] Work Phone: [phone] Neutrophils/100 leukocytes 71.9 % High 47-70 [facility] Work Phone: [phone] Neutrophils/100 WBC (Bld) 71.9 % High 47-70 [facility] Work Phone: [phone] Platelet mean volume (Bld) [Entitic vol] 12.4 fL High 6.2-12.0 [facility] Work Phone: [phone] Platelets 112 10*3/mm3 Low 150-450 [facility] Work Phone: [phone] Platelets (Bld) [#/Vol] 112 10*3/mm3 Low 150-450 [facility] Work Phone: [phone] PMV by Macarena 12.4 fL High 6.2-12.0 [facility] Work Phone: [phone] RBC (Bld) [#/Vol] 4.22 10*6/uL Low 4.6-6.2 [facility] Work Phone: [phone] RDW SD 43.2 fL Invalid Interpretation Code 35.1-43.9 [facility] Work Phone: [phone] RDW-CA 12.1 % Invalid Interpretation Code 11.6-14.6 [facility] Work Phone: [phone] red blood cell distribution width, size density 43.2 fL Invalid Interpretation Code 35.1-43.9 [facility] Work Phone: [phone] WBC (Bld) [#/Vol] 4.4 10*3/uL 4.4-11.0 [facility] Work Phone: [phone] WBC (Leukocytes) 4.4 10*3/uL Invalid Interpretation Code 4.4-11.0 Project Manager Phone: Office Visit: [facility] 06-20-20 15 Tobacco smoking status NHIS Tobacco smoking status NHIS Invalid Interpretation Code Project Manager Phone: Tobacco smoking status NHIS Never smoker Project Manager Phone: Tobacco use [facility] Never smoker Invalid Interpretation Code [employer] Work Phone: [phone] Replaced Document: Carrie Segundo 06-20-2015 EKG QRS axis -27 deg Invalid Interpretation Code [employer] Work Phone: electrocardiogram interpretation Marked sinus Bradycardia -Anterior infarct -age undetermined. - Negative T-waves -Possible Anterolateral ischemia. ABNORMAL Invalid Interpretation Code Project Manager Phone: GE use only - for [employer] import when terms are not otherwise specified 412 ms Invalid Interpretation Code Project [employer] Phone: [phone] Interpretation Marked sinus Bradycardia -Anterior infarct -age undetermined. - Negative T-waves -Possible Anterolateral ischemia. ABNORMAL Invalid Interpretation Code Project Manager Phone: P [place] 67 deg Invalid Interpretation Code Project Manager Phone: [phone] P wave axis, electrocardiogram 67 deg Invalid Interpretation Code Project Manager Phone: [place] Interval 174 ms Invalid Interpretation Code Project Manager Phone: [place] interval, electrocardiogram 174 ms Invalid Interpretation Code [employer] Work Phone: Pulse (Heart Rate) 47 /min Invalid Interpretation Code [employer] Work Phone: QRS axis, electrocardiogram -27 deg Invalid Interpretation Code [employer] Work Phone: QRS Duration 96 ms Invalid Interpretation Code Project Manager Phone: QRS duration, electrocardiogram 96 ms Invalid Interpretation Code Project Manager Phone: QT Interval new path ms Invalid Interpretation Code Project Manager Phone: QT interval, electrocardiogram new path ms Invalid Interpretation Code [employer] Work Phone: QTc [place] 412 ms Invalid Interpretation Code [facility] Work Phone: [phone] T [place] 90 deg Invalid Interpretation Code [employer] Work Phone: [phone] T wave axis, electrocardiogram 90 deg Invalid Interpretation Code [facility] Work Phone: [phone] Office Visit: [facility] 06-13-20 14 cardiac risk group C Invalid Interpretation Code [facility] Work Phone: [phone] General cardiovascular disease 10Y risk [#] [place]D'Agost[place] N/A Invalid Interpretation Code [employer] Work Phone: [phone] LDL target level 100 mg/dL Invalid Interpretation Code [facility] Work Phone: [phone] Lab Report: PTon 07-20-2012 INR Coag (PPP) [Relative time] 1.2 {INR} Normal [employer] Work Phone: [phone] INR in blood by coagulation 1.2 {INR} Normal [employer] Work Phone: [phone] prothrombin time, actual/normal, ratio 14.0 SECONDS Normal 11.9-14.4 [employer] Work Phone: [phone] PTP 14.0 SECONDS Normal 11.9-14.4 [employer] Work Phone: [phone] Lab Report: UAon 07-20-2012 specific gravity, urine 1.020 Normal 1.002-1.030 [employer] Work Phone: [phone] Replaced Document: Carrie Ramirez CG Observationson 07-15-2012 Pulse (Heart Rate) 471 ms Invalid Interpretation Code [facility] Work Phone: [phone] Vital Signs Date Time Vital Sign Value Performing Clinician Faci lity 02-10-2025 14:50-0400 Body temperature 98.3 [degF] Dr. Wolfgang Conde MD Work Phone: [facility] 02-10-2025 14:50-0400 Diastolic blood pressure 75 mm[Hg] Dr. Wolfgang Conde MD Work Phone: [facility] 02-10-2025 14:50-0400 Heart rate 67 /min Dr. Wolfgang Conde MD Work Phone: [facility] 02-10-2025 14:50-0400 Respiratory rate 14 /min Dr. Wolfgang Conde MD Work Phone: [facility] 02-10-2025 14:50-0400 SaO2% (BldA) [Mass fraction] 97 % Dr. Wolfgang Conde MD Work Phone: [facility] 02-10-2025 14:50-0400 Systolic blood pressure 110 mm[Hg] Dr. Wolfgang Conde MD Work Phone: [facility] 02-09-2025 08:22-0400 Body height 170.[address] Wolfgang Conde MD Work Phone: [facility] 02-09-2025 08:22-0400 Body weight 56.[address] Wolfgang Conde MD Work Phone: [facility] 02-08-2025 15:39-0400 Body mass index (BMI) [Ratio] 19.5 kg/m2 Dr. Wolfgang Conde MD Work Phone: [facility] 02-08-2025 15:01-0400 Body temperature 97.8 [degF] Dr. Wolfgang Conde MD Work Phone: [facility] 02-08-2025 15:01-0400 Diastolic blood pressure 84 mm[Hg] Dr. Wolfgang Conde MD Work Phone: [facility] 02-08-2025 15:01-0400 Heart rate 51 /min Dr. Wolfgang Conde MD Work Phone: [facility] 02-08-2025 15:01-0400 Respiratory rate 13 /min Dr. Wolfgang Conde MD Work Phone: [facility] 02-08-2025 15:01-0400 SaO2% (BldA) [Mass fraction] 100 % Dr. Wolfgang Conde MD Work Phone: [facility] 02-08-2025 15:01-0400 Systolic blood pressure 129 mm[Hg] Dr. Wolfgang Conde MD Work Phone: [facility] 02-08-2025 12:10-0400 Body mass index (BMI) [Ratio] 19.5 kg/m2 Dr. Wolfgang Conde MD Work Phone: [facility] 02-08-2025 12:10-0400 Body weight 56.[address] Wolfgang Conde MD Work Phone: [facility] 02-08-2025 11:55-0400 Body height 170.[address] Wolfgang Conde MD Work Phone: [facility] 01-23-2025 10:30-0400 Body temperature 98.2 [degF] Dr. Wolfgang Conde MD Work Phone: [facility] 01-23-2025 10:30-0400 Diastolic blood pressure 81 mm[Hg] Dr. Wolfgang Conde MD Work Phone: [facility] 01-23-2025 10:30-0400 Heart rate 76 /min Dr. Wolfgang Conde MD Work Phone: [facility] 01-23-2025 10:30-0400 Respiratory rate 16 /min Dr. Wolfgang Conde MD Work Phone: [facility] 01-23-2025 10:30-0400 SaO2% (BldA) [Mass fraction] 91 % Dr. Wolfgang Conde MD Work Phone: [facility] 01-23-2025 10:30-0400 Systolic blood pressure 123 mm[Hg] Dr. Wolfgnag Conde MD Work Phone: [facility] 01-22-2025 23:50-0400 Body height 172.[address] Wolfgang Conde MD Work Phone: [facility] 01-22-2025 23:50-0400 Body mass index (BMI) [Ratio] 18.1 kg/m2 Dr. Wolfgang Conde MD Work Phone: [facility] 01-22-2025 23:50-0400 Body weight 54.[address] Wolfgang Conde MD Work Phone: [facility] 12-01-2024 14:19-0400 Body height 172.72 cm No Primary Care Physician [facility] 12-01-2024 14:17-0400 Body mass index (BMI) [Ratio] 21.1 kg/m2 No Primary Care Physician [facility] 12-01-2024 14:17-0400 Body weight 63.04 kg No Primary Care Physician [facility] 12-01-2024 14:17-0400 Diastolic blood pressure 82 mm[Hg] No Primary Care Physician [facility] 12-01-2024 14:17-0400 Heart rate 49 /min No Primary Care Physician [facility] 12-01-2024 14:17-0400 Respiratory rate 18 /min No Primary Care Physician [facility] 12-01-2024 14:17-0400 SaO2% (BldA) [Mass fraction] 98 % No Primary Care Physician [facility] 12-01-2024 14:17-0400 Systolic blood pressure 140 mm[Hg] No Primary Care Physician [facility] 11-10-2023 15:29-0400 Body height 172.72 cm No Primary Care Physician [facility] 11-10-2023 15:20-0400 Body mass index (BMI) [Ratio] 20.7 kg/m2 No Primary Care Physician [facility] 11-10-2023 15:20-0400 Body weight 61.68 kg No Primary Care Physician [facility] 11-10-2023 15:20-0400 Diastolic blood pressure 80 mm[Hg] No Primary Care Physician [facility] 11-10-2023 15:20-0400 Heart rate 64 /min No Primary Care Physician [facility] 11-10-2023 15:20-0400 Respiratory rate 16 /min No Primary Care Physician [facility] 11-10-2023 15:20-0400 Systolic blood pressure 135 mm[Hg] No Primary Care Physician [facility] 07-17-2023 13:46-0500 Body height 172.72 cm No Primary Care Physician [facility] 07-17-2023 13:46-0500 Body mass index (BMI) [Ratio] 21.2 kg/m2 No Primary Care Physician [facility] 07-17-2023 13:46-0500 Body weight 63.5 kg No Primary Care Physician [facility] 07-17-2023 13:46-0500 Diastolic blood pressure 88 mm[Hg] No Primary Care Physician [facility] 07-17-2023 13:46-0500 Heart rate 62 /min No Primary Care Physician [facility] 07-17-2023 13:46-0500 Respiratory rate 16 /min No Primary Care Physician [facility] 07-17-2023 13:46-0500 Systolic blood pressure 169 mm[Hg] No Primary Care Physician [facility] 12-19-2016 12:52-0400 BMI (Body Mass Index) 20.77 kg/m2 Alisia Vasquez [facility] Work Phone: 12-19-2016 12:52-0400 Body weight 58.38 kg Thaddeusken Doreneedwige [facility] Work Phone: 12-19-2016 12:52-0400 BP Diastolic 62 mm[Hg] Alisia Vasquez [facility] Work Phone: 12-19-2016 12:52-0400 BP Systolic 120 mm[Hg] Alisia Vasquez [facility] Work Phone: 12-19-2016 12:52-0400 Height 167.64 cm Alisia Vasquez [facility] Work Phone: 12-19-2016 12:52-0400 Pulse (Heart Rate) 58 /min Alisia Vasquez [facility] Work Phone: 12-19-2016 12:52-0400 Respiratory Rate 16 /min Alisia Vasquez [facility] Work Phone: 12-19-2016 12:52-0400 Weight 58.38 kg Alisia Vasquez [facility] Work Phone: 06-18-2016 13:02-0500 BMI (Body Mass Index) 21.14 kg/m2 Wolfgang Conde MD [facility] Work Phone: 06-18-2016 13:02-0500 [...] Phone: 06-18-2016 13:02-0500 Respiratory Rate 16 /min MD [facility] Work Phone: 06-18-2016 13:02-0500 Weight 59.42 kg MD [facility] Work Phone: 06-20-2015 13:01-0500 Heart rate 47 /min Saritha [facility] Work Phone: 07-27-2012 14:18-0500 Body Temperature 96.9 [degF] MD [facility] Work Phone: 07-15-2012 10:40-0500 Heart rate 471 ms Saritha [facility] Work Phone: 10-11-2011 11:14-0400 Height 167.64 cm Wolfgang Conde MD [facility] Work Phone: Encounters Encounter Date Encounter Type Care Provider Facility Start: 04-04-2025 ambulatory Marcelino MCCLENDON Facil ity:[facility] Start: 04-01-2025 ambulatory No Primary Car e Physician Facility:[facility] Start: 03-02-2025 ambulatory Marcelino Salazar OLS Facil ity:[facility] Start: 03-01-2025 ambulatory Marcelino Salazar OLS Facil ity:[facility] Start: 02-10-2025 Non-patient / Non-visit Dr. Isadora Arndt MD -[facility] Work Phone: Start: 02-09-2025 ambulatory No Primary Car e Physician Facility:[facility] Start: 02-09-2025 Non-patient / Non-visit Dr. Isadora Arndt MD -[facility] Work Phone: Start: 02-08-2025 End: 02-10-2025 ambulatory Ajith Zimmer Facility:[facility] Start: 02-08-2025 End: 02-10-2025 Evaluation and management of inpatient Dr. Ajith Zimmer DO -[facility] Work Phone: Start: 02-08-2025 End: 02-10-[address] Wolfgang Conde MD Work Phone: -[facility] Start: 01-22-2025 End: 01-23-2025 Emergency department patient visit Dr. Wolfgang Conde MD Work Phone: -Emergency Department Work Phone: Start: 12-01-2024 End: 12-01-2024 ambulatory No Primary Care Physician [facility] Work Phone: Start: 12-01-2024 End: 12-01-2024 Patient encounter procedure Marcelino MARIN -[facility] Work Phone: Start: 05-10-2024 End: 05-10-2024 ambulatory Wolfgang Conde Facility:[facility] Start: 11-12-2023 End: 11-12-2023 Non-patient / Non-visit No Primary Care Physician [facility] Start: 11-10-2023 End: 11-10-2023 ambulatory No Primary Care Physician [facility] Work Phone: Start: 11-10-2023 End: 11-10-2023 Patient encounter procedure No Primary Care Physician [facility] Work Phone: Start: 11-10-2023 End: 11-10-2023 Patient encounter procedure No Primary Care Physician [facility] Work Phone: Start: 10-22-2023 End: 10-22-2023 ambulatory No Primary Care Physician [facility] Work Phone: Start: 10-22-2023 End: 10-22-2023 Patient encounter procedure No Primary Care Physician [facility] Work Phone: Start: 07-17-2023 End: 07-17-2023 Patient encounter procedure No Primary Care Physician [facility] Work Phone: Procedures Date Procedure Procedure Detail [...] End: 12-19-2016 Documentation of current medications Saritha Ram Start: 12-19-2016 End: 12-19-2016 Follow Up Appt [...] [AGGREGATE] Gwen Rivera Start: 06-18-2016 End: 06-18-2016 GUIDANCE CONSULTANT Jeimy Huang PA-C Work Phone: Start: 06-18-2016 End: 12-19-2016 Follow Up Appt 3 months Gwen Rivera Start: 06-18-2016 End: 06-18-2016 Follow Up Appt 6 months Jeimy Huang PA-C Work Phone: Start: 06-18-2016 End: 12-19-2016 Pacer Clinic Wolfgang Conde MD Start: 06-18-2016 End: 07-04-2016 Prgrmg eval implantable in prsn dual lead dfb Wolfgang Conde MD Start: 06-18-2016 End: 06-18-2016 GUIDANCE CONSULTANT Jeimy Huang PA-C Work Phone: Start: 06-18-2016 [...] prsn dual lead jazz Conde MD Start: 03-19-2016 End: 06-11-2016 Follow [...] PA-C Work Phone: Start: 06-20-2015 End: 06-20-2015 GUIDANCE CONSULTANT Jeimy Huang PA-C Work Phone: Start: 06-20-2015 [...] PA-C Work Phone: Start: 06-20-2015 End: 06-20-2015 GUIDANCE CONSULTANT Jeimy Huang PA-C Work Phone: Start: 06-20-2015 End: 06-20-2015 Electrocardiogram, complete Jeimy Huang PA-C Work Phone: Start: 06-20-2015 End: 06-20-2015 Follow Up Appt 6 months Jeimy Huang PA-C Work Phone: Start: 06-20-2015 End: 07-03-2015 Nuclear stress test -Lexmirlande Huang PA-C Work Phone: Start: 05-30-2015 End: [...] 12-20-2014 End: 12-20-2014 KONRAD Conde MD Start: 12-20-2014 End: 12-21-2014 Documentation [...] PA-C Work Phone: Start: 06-13-2014 End: 06-13-2014 GUIDANCE CONSULTANT Jemiy Huang PA-C Work Phone: Start: 06-13-2014 End: [...] PA-C Work Phone: Start: 06-13-2014 End: 06-13-2014 GUIDANCE CONSULTANT Jeimy Huang PA-C Work Phone: Start: 06-13-2014 [...] PA-C Work Phone: Start: 06-15-2013 End: 06-15-2013 GUIDANCE CONSULTANT Jiemy Huang PA-C Work Phone: Start: 06-15-2013 End: 06-15-2013 Follow Up Appt 6 months Jeimy Huang PA-C Work Phone: Start: 06-15-2013 End: 06-16-2013 Lipid 1996 panel - Serum or Plasma Jeimy Huang PA-C Work Phone: Start: 06-15-2013 End: 06-16-2013 *Hepatic Function Panel Jeimy Huang PA-C Work Phone: Start: 06-15-2013 End: 06-15-2013 GUIDANCE CONSULTANT Jeimy Huang PA-C Work Phone: Start: 06-15-2013 [...] months Gwen Rivera Start: 12-17-2012 End: 12-17-2012 MITALIM Wolfgang Conde MD Start: 12-17-2012 End: 12-17-2012 Follow Up Appt 6 months Gwen Rivera Start: 12-17-2012 End: 12-17-2012 MMM Wolfgang Conde MD Start: 11-11-2012 End: 06-16-2013 [...] angioplasty PERCUTANEOUS TRANSLUMINAL CORONARY ANGIOPLASTY, HX OF Harken DeFinis Start: 07-28-2009 History of placement of stent for coronary artery disease History of coronary artery stent placement Marcelino Arizmendi CURTAIN FITTER-C Comment on above: [id number] and Mid LAD w/ Veriflex BMS 3.0 x 20 mm and Micro Timber Cutter BMS 2.5 x 18 mm 07/28/09 Plan of Treatment Date Care Activity Detail Author Start: 02-10-2025 Patient discharge [facility] Start: 02-08-2025 Following clinical pathway protocol [facility] Start: 02-08-2025 Patient referral to dietitian [facility] Start: 02-08-2025 Ambulation without limitation [facility] Start: 02-08-2025 Assessment of risk of venous thromboembolism [facility] Start: 02-08-2025 Insertion of catheter into peripheral vein [facility] Start: 02-08-2025 Measuring intake and output [facility] Start: 02-08-2025 Oxygen therapy [facility] Start: 02-08-2025 Providing care according to standard [facility] Start: 02-08-2025 Referral to occupational therapist [facility] Start: 02-08-2025 Referral to service [facility] Start: 02-08-2025 [facility] Start: 02-08-2025 Verification routine [facility] Start: 02-08-2025 Hospital admission, emergency, from emergency room, medical nature [facility] Start: 02-08-2025 Admission procedure [facility] Start: 01-23-2025 [facility] Start: 01-23-2025 Suicide precautions [facility] Start: 11-10-2023 Patient referral [facility] Work Phone: Start: 07-17-2017 End: 07-17-2017 Appointment Appointment [facility] Work Phone: Start: 07-02-2017 End: 07-02-2017 Appointment Appointment [facility] Work Phone: Start: 06-12-2017 End: 06-19-2017 *Hepatic Function Panel *Hepatic Function Panel [facility] Work Phone: Start: 06-12-2017 End: 06-19-2017 Lipid panel [AGGREGATE] *Lipid Profile CC PCP [facility] Work Phone: Start: 06-12-2017 End: 12-20-2016 *Hepatic Function Panel *Hepatic Function Panel [facility] Work Phone: Start: 06-12-2017 End: 12-20-2016 Lipid panel [AGGREGATE] *Lipid Profile CC PCP [facility] Work Phone: Start: 04-04-2017 End: 04-05-2017 Follow Up Appt 3 months Follow Up Appt 3 months [facility] Work Phone: Start: 04-04-2017 End: 04-05-2017 Pacer Clinic [facility] Work Phone: Start: 04-04-2017 End: 04-04-2017 Appointment Appointment [facility] Work Phone: Start: 04-04-2017 End: 04-05-2017 Follow Up Appt 3 months Follow Up Appt 3 months [facility] Work Phone: Start: 04-04-2017 End: 04-05-2017 Pacer Clinic [facility] Work Phone: Start: 12-27-2016 End: 12-27-2016 Follow Up Appt 3 months Follow Up Appt 3 months [facility] Work Phone: Start: 12-27-2016 End: 12-27-2016 Pacer Clinic [facility] Work Phone: Start: 12-27-2016 End: 12-27-2016 Appointment Appointment [facility] Work Phone: Start: 12-27-2016 End: 12-27-2016 Appointment Appointment [facility] Work Phone: Start: 12-27-2016 End: 12-27-2016 Follow Up Appt 3 months Follow Up Appt 3 months [facility] Work Phone: Start: 12-27-2016 End: 12-27-2016 Pacer Clinic [facility] Work Phone: Start: 12-19-2016 End: 12-19-2016 Follow Up Appt 6 months Follow Up Appt 6 months [facility] Work Phone: Start: 12-19-2016 End: 12-19-2016 MMM MMM [facility] Work Phone: Start: 12-19-2016 End: 12-19-2016 Appointment Appointment [facility] Work Phone: Start: 12-19-2016 End: 12-19-2016 Appointment Appointment [facility] Work Phone: Start: 12-19-2016 End: 12-19-2016 Follow Up Appt 6 months Follow Up Appt 6 months [facility] Work Phone: Start: 12-19-2016 End: 12-19-2016 MMM MMM [facility] Work Phone: Start: 09-16-2016 End: 12-19-2016 Follow Up Appt 3 months Follow Up Appt 3 months [facility] Work Phone: Start: 09-16-2016 End: 12-19-2016 Pacer Clinic Pac[facility] Clinic [facility] Work Phone: Start: 09-16-2016 End: 12-19-2016 Follow Up Appt 3 months Follow Up Appt 3 months [facility] Work Phone: Start: 09-16-2016 End: 12-19-2016 Pacer Clinic [facility] Work Phone: Start: 08-19-2016 End: 12-10-2016 *Hepatic Function Panel *Hepatic Function Panel [facility] Work Phone: Start: 08-19-2016 End: 12-10-2016 Lipid panel [AGGREGATE] *Lipid Profile CC PCP [facility] Work Phone: Start: 08-19-2016 End: 12-10-2016 *Hepatic Function Panel *Hepatic Function Panel [facility] Work Phone: Start: 08-19-2016 End: 12-10-2016 Lipid panel [AGGREGATE] *Lipid Profile CC PCP [facility] Work Phone: Start: 06-18-2016 End: 06-18-2016 GUIDANCE CONSULTANT GUIDANCE CONSULTANT [facility] Work Phone: Start: 06-18-2016 End: 12-19-2016 Follow Up Appt 3 months Follow Up Appt 3 months [facility] Work Phone: Start: 06-18-2016 End: 06-18-2016 Follow Up Appt 6 months Follow Up Appt 6 months [facility] Work Phone: Start: 06-18-2016 End: 12-19-2016 Pacer Clinic Pacer Clinic [facility] Work Phone: Start: 06-18-2016 End: 06-18-2016 GUIDANCE CONSULTANT GUIDANCE CONSULTANT [facility] Work Phone: Start: 06-18-2016 End: 12-19-2016 Follow Up Appt 3 months Follow Up Appt 3 months [facility] Work Phone: Start: 06-18-2016 End: 06-18-2016 Follow Up Appt 6 months Follow Up Appt 6 months [facility] Work Phone: Start: 06-18-2016 End: 12-19-2016 Pacer Clinic Pacer Clinic [facility] Work Phone: Start: 03-19-2016 End: 06-11-2016 Follow Up Appt 3 months Follow Up Appt 3 months [facility] Work Phone: Start: 03-19-2016 End: 06-11-2016 Pacer Clinic Pacer Clinic [facility] Work Phone: Start: 03-19-2016 End: 06-11-2016 Follow Up Appt 3 months Follow Up Appt 3 months [facility] Work Phone: Start: 03-19-2016 End: 06-11-2016 Pacer Clinic Pacer Clinic [facility] Work Phone: Start: 02-06-2016 End: 02-21-2016 *Hepatic Function Panel *Hepatic Function Panel [facility] Work Phone: Start: 02-06-2016 End: 02-21-2016 Lipid panel [AGGREGATE] *Lipid Profile CC PCP [facility] Work Phone: Start: 02-06-2016 End: 02-21-2016 *Hepatic Function Panel *Hepatic Function Panel [facility] Work Phone: Start: 02-06-2016 End: 02-21-2016 Lipid panel [AGGREGATE] *Lipid Profile CC PCP [facility] Work Phone: Start: 12-19-2015 End: 06-11-2016 Follow Up Appt 3 months Follow Up Appt 3 months [facility] Work Phone: Start: 12-19-2015 End: 12-19-2015 Follow Up Appt 6 months Follow Up Appt 6 months [facility] Work Phone: Start: 12-19-2015 End: 12-19-2015 MMM MMM [facility] Work Phone: Start: 12-19-2015 End: 06-11-2016 Pacer Clinic Pacer Clinic [facility] Work Phone: Start: 12-19-2015 End: 06-11-2016 Follow Up Appt 3 months Follow Up Appt 3 months [facility] Work Phone: Start: 12-19-2015 End: 12-19-2015 Follow Up Appt 6 months Follow Up Appt 6 months [facility] Work Phone: Start: 12-19-2015 End: 12-19-2015 MMM MMM [facility] Work Phone: Start: 12-19-2015 End: 06-11-2016 Pacer Clinic Pacer Clinic [facility] Work Phone: Start: 09-04-2015 End: 06-11-2016 Follow Up Appt 3 months Follow Up Appt 3 months [facility] Work Phone: Start: 09-04-2015 End: 06-11-2016 Pacer Clinic Pacer Clinic [facility] Work Phone: Start: 09-04-2015 End: 06-11-2016 Follow Up Appt 3 months Follow Up Appt 3 months [facility] Work Phone: Start: 09-04-2015 End: 06-11-2016 Pacer Clinic Pacer Clinic [facility] Work Phone: Start: 07-14-2015 End: 08-07-2015 *Hepatic Function Panel *Hepatic Function Panel [facility] Work Phone: Start: 07-14-2015 End: 08-07-2015 Lipid panel [AGGREGATE] *Lipid Profile CC PCP [facility] Work Phone: Start: 07-14-2015 End: 08-07-2015 *Hepatic Function Panel *Hepatic Function Panel [facility] Work Phone: Start: 07-14-2015 End: 08-07-2015 Lipid panel [AGGREGATE] *Lipid Profile CC PCP [facility] Work Phone: Start: 06-20-2015 End: 06-20-2015 *BMP *BMP [facility] Work Phone: Start: 06-20-2015 End: 06-20-2015 *CBC with Differential *CBC with Differential [facility] Work Phone: Start: 06-20-2015 End: 06-20-2015 GUIDANCE CONSULTANT GUIDANCE CONSULTANT [facility] Work Phone: Start: 06-20-2015 End: 06-20-2015 Ecg routine ecg w/least 12 lds w/i&r EKG (In office) [facility] Work Phone: Start: 06-20-2015 End: 06-20-2015 Follow Up Appt 6 months Follow Up Appt 6 months [facility] Work Phone: Start: 06-20-2015 End: 06-20-2015 Nuclear stress test -Lexiscan Nuclear stress test -Lexiscan [facility] Work Phone: Start: 06-20-2015 End: 06-20-2015 *BMP *BMP [facility] Work Phone: Start: 06-20-2015 End: 06-20-2015 *CBC with Differential *CBC with Differential [facility] Work Phone: Start: 06-20-2015 End: 06-20-2015 GUIDANCE CONSULTANT GUIDANCE CONSULTANT [facility] Work Phone: Start: 06-20-2015 End: 06-20-2015 Electrocardiogram, complete EKG (In office) [facility] Work Phone: Start: 05-30-2015 End: 06-13-2015 Pacer Clinic Pacer Clinic [facility] Work Phone: Start: 05-30-2015 End: 06-13-2015 Follow Up Appt 3 months Follow Up Appt 3 months [facility] Work Phone: Start: 05-30-2015 End: 06-13-2015 Pacer Clinic Pacer Clinic [facility] Work Phone: Start: 02-28-2015 End: 06-13-2015 Follow Up Appt 3 months Follow Up Appt 3 months [facility] Work Phone: Start: 02-28-2015 End: 06-13-2015 Pacer Clinic Pacer Clinic [facility] Work Phone: Start: 02-28-2015 End: 06-13-2015 Follow Up Appt 3 months Follow Up Appt 3 months [facility] Work Phone: Start: 02-28-2015 End: 06-13-2015 Pacer Clinic Pacer Clinic [facility] Work Phone: Start: 01-10-2015 End: [...] PCP [facility] Work Phone: Start: 12-20-2014 End: 12-20-2014 Follow Up Appt 6 months Follow Up Appt 6 months [facility] Work Phone: Start: 12-20-2014 End: 12-20-2014 MMM MMM [facility] Work Phone: Start: 12-20-2014 End: 12-20-2014 Follow Up Appt 6 months Follow Up Appt 6 months [facility] Work Phone: Start: 12-20-2014 End: 12-20-2014 MMM MMM [facility] Work Phone: Start: 11-21-2014 End: 06-13-2015 Follow Up Appt 3 months Follow Up Appt 3 months [facility] Work Phone: Start: 11-21-2014 End: 06-13-2015 Pacer Clinic Pacer Clinic [facility] Work Phone: Start: 11-21-2014 End: 06-13-2015 Follow Up Appt 3 months Follow Up Appt 3 months [facility] Work Phone: Start: 11-21-2014 End: 06-13-2015 Pacer Clinic Pacer Clinic [facility] Work Phone: Start: 08-19-2014 End: 06-13-2015 Follow Up Appt 3 months Follow Up Appt 3 months [facility] Work Phone: Start: 08-19-2014 End: 06-13-2015 Pacer Clinic Pacer Clinic [facility] Work Phone: Start: 08-19-2014 End: 06-13-2015 Follow Up Appt 3 months Follow Up Appt 3 months [facility] Work Phone: Start: 08-19-2014 End: 06-13-2015 Pacer Clinic Pacer Clinic [facility] Work Phone: Start: 06-13-2014 End: 06-13-2014 *Hepatic Function Panel *Hepatic Function Panel [facility] Work Phone: Start: 06-13-2014 End: 06-13-2014 GUIDANCE CONSULTANT GUIDANCE CONSULTANT [facility] Work Phone: Start: 06-13-2014 End: 06-13-2014 Ecg routine ecg w/least 12 lds w/i&r EKG (In office) [facility] Work Phone: Start: 06-13-2014 End: 06-13-2014 Follow Up Appt 6 months Follow Up Appt 6 months [facility] Work Phone: Start: 06-13-2014 End: 06-13-2014 Lipid panel [AGGREGATE] *Lipid Profile CC PCP [facility] Work Phone: Start: 06-13-2014 End: 06-13-2014 *Hepatic Function Panel *Hepatic Function Panel [facility] Work Phone: Start: 06-13-2014 End: 06-13-2014 GUIDANCE CONSULTANT GUIDANCE CONSULTANT [facility] Work Phone: Start: 06-13-2014 End: 06-13-2014 Electrocardiogram, complete EKG (In office) [facility] Work Phone: Start: 06-13-2014 End: 06-13-2014 Follow Up Appt 6 months Follow Up Appt 6 months [facility] Work Phone: Start: 06-13-2014 End: 06-13-2014 Lipid panel [AGGREGATE] *Lipid Profile CC PCP [facility] Work Phone: Start: 05-18-2014 End: 05-31-2014 Follow Up Appt 3 months Follow Up Appt 3 months [facility] Work Phone: Start: 05-18-2014 End: 05-31-2014 Pacer Clinic Pacer Clinic [facility] Work Phone: Start: 05-18-2014 End: 05-31-2014 Follow Up Appt 3 months Follow Up Appt 3 months [facility] Work Phone: Start: 05-18-2014 End: 05-31-2014 Pacer Clinic Pacer Clinic [facility] Work Phone: Start: 02-14-2014 End: [...] Clinic [facility] Work Phone: Start: 12-14-2013 End: 12-14-2013 Follow Up Appt 6 months Follow Up Appt 6 months [facility] Work Phone: Start: 12-14-2013 End: 12-14-2013 MMM MMM [facility] Work Phone: Start: 12-14-2013 End: [...] PCP [facility] Work Phone: Start: 11-16-2013 End: 05-31-2014 Follow Up Appt 3 months Follow Up Appt 3 months [facility] Work Phone: Start: 11-16-2013 End: 05-31-2014 Pacer Clinic Pacer Clinic [facility] Work Phone: Start: 11-16-2013 End: 05-31-2014 Follow Up Appt 3 months Follow Up Appt 3 months [facility] Work Phone: Start: 11-16-2013 End: 05-31-2014 Pacer Clinic Pacer Clinic [facility] Work Phone: Start: 08-16-2013 End: 12-14-2013 Follow Up Appt 3 months Follow Up Appt 3 months [facility] Work Phone: Start: 08-16-2013 [...] Group Work Phone: Start: 06-15-2013 End: 06-15-2013 GUIDANCE CONSULTANT GUIDANCE CONSULTANT [facility] Work Phone: Start: 06-15-2013 End: 06-15-2013 Follow Up Appt 6 months Follow Up Appt 6 months [facility] Work Phone: Start: 06-15-2013 End: 06-16-2013 Lipid panel [AGGREGATE] *Lipid Profile CC PCP [facility] Work Phone: Start: 06-15-2013 End: 06-16-2013 *Hepatic Function Panel *Hepatic Function Panel [facility] Work Phone: Start: 06-15-2013 End: 06-15-2013 GUIDANCE CONSULTANT GUIDANCE CONSULTANT [facility] Work Phone: Start: 06-15-2013 End: 06-15-2013 Follow Up Appt 6 months Follow Up Appt 6 months [facility] Work Phone: Start: 06-15-2013 End: 06-16-2013 Lipid panel [AGGREGATE] *Lipid Profile CC PCP [facility] Work Phone: Start: 05-14-2013 End: 06-03-2013 Follow Up Appt 3 months Follow Up Appt 3 months [facility] Work Phone: Start: 05-14-2013 End: 06-03-2013 Pacer Clinic Pacer Clinic [facility] Work Phone: Start: 05-14-2013 End: 06-03-2013 Follow Up Appt 3 months Follow Up Appt 3 months [facility] Work Phone: Start: 05-14-2013 End: 06-03-2013 Pacer Clinic Pacer Clinic [facility] Work Phone: Start: 02-10-2013 End: 06-03-2013 Follow Up Appt 3 months Follow Up Appt 3 months [facility] Work Phone: Start: 02-10-2013 End: 06-03-2013 Pacer Clinic Pacer Clinic [facility] Work Phone: Start: 02-10-2013 End: 06-03-2013 Follow Up Appt 3 months Follow Up Appt 3 months [facility] Work Phone: Start: 02-10-2013 End: 06-03-2013 Pacer Clinic Pacer Clinic [facility] Work Phone: Start: 12-17-2012 End: 12-17-2012 Follow Up Appt 6 months Follow Up Appt 6 months [facility] Work Phone: Start: 12-17-2012 End: 12-17-2012 MMM MMM [facility] Work Phone: Start: 12-17-2012 End: 12-17-2012 Follow Up Appt 6 months Follow Up Appt 6 months [facility] Work Phone: Start: 12-17-2012 End: 12-17-2012 MMM MMM [facility] Work Phone: Start: 11-11-2012 End: 06-16-2013 *Hepatic Function Panel *Hepatic Function Panel [facility] Work Phone: Start: 11-11-2012 End: 06-16-2013 Lipid panel [AGGREGATE] *Lipid Profile [facility] Work Phone: Start: 11-11-2012 [...] Clinic [facility] Work Phone: Start: 11-10-2012 End: [...] End: 07-15-2012 Electrocardiogram, complete EKG (In office) [facility] Work Phone: Start: 06-18-2012 [...] Start: 06-03-2012 End: 06-03-2012 Echocardiography Echocardiogram (complete) [facility] Work Phone: Start: 06-03-2012 End: [...] [facility] Work Phone: Patient referral [facility] Work Phone: Immunizations Immunization Date Immunization Notes Care Provider Fa [facility] 10-12-2020 Covid (Pfizer) No Primary Ca re Physician [facility] 09-21-2020 Covid (Pfizer) No Primary Ca re Physician [facility] Payers Date Payer Category Payer Self-pay [id number] 2012 Medicare [id number] Medicare [id number] Unknown [id number] 2.16.8 [id number] Unknown [id number] 2.16.8 [id number] Unknown [id number] 2.16.8 [id number] Unknown [id number] 2.16.8 [id number] Unknown [id number] 2.16.8 [id number] Unknown [id number] 2.16.8 [id number] Unknown [id number] 2.16.8 [id number] Unknown [id number] 2.16.8 [id number] Unknown [id number] 2.16.8 [id number] Unknown [id number] 2.16.8 [id number] Unknown [id number] 2.16.8 [id number] Unknown [id number] 2.16.8 [id number] Unknown [id number] 2.16.8 [id number] Unknown [id number] 2.16.8 [id number] Unknown [id number] 2.16.8 [id number] Unknown [id number] 2.16.8 [id number] Social History Date Type Detail Facility Start: 07-17-2023 Tobacco smoking stat us WYIS Unknown if ever smoked [facility] Start: 1940 Sex Assigned At Male W [facility] Start: 07-17-2023 End: 02-08-2025 Tobacco smoking status NHIS Never smoked tobacco (finding) [facility] Goals Date Patient Goal Desired Activity /State Functional Status Date Assessment Result Facility 02-10-2025 Functional status Ambulates [facility] Work Phone: Mental Status Date Assessment Result Facility 02-10-2025 Cognitive function Voice/Name;Touch/Kerri arnulfo [facility] Work Phone: 02-08-2025 Cognitive function Level Of Cons ciousness Follows Commands;Drowsy [facility] Work Phone: Clinical Notes 07-28-2009 to 02-10-2025 Note Date & Type Note Facility 02-10-2025 Discharge summary [facility] 02-10-2025 Discharge summary [facility] 02-10-2025 Hospital Discharg e instructions Additional Instructions Date of Discharge: 02/10/25 [facility] Work Phone: 02-10-2025 Discharge summary Note Date/Time February 10, 2025 3:37pm [facility] Medical Records Department [address] [place] [address] Discharge Summary 02/10/25 1105 MR#: [id number] Acct: [id number] Name: SOPHIA CORTES Rep #:[id number] : 1940 84 From: Isadora Arndt MD PCP: Care Physician,No Primary Status :ADM MARCELA Location: [place] [address] Providers Date of Admission: 02/08/25 Date of [...] his sister was his medical power of employee benefits attorney. He came back to the ED [...] 02/09/25 08:40 RMA (Rec: 02/09/25 08:40 RMA [id number]) Nutrition Malnutrition Evidence of Yes Malnutrition Exists [...] % (Auto) 66.9, Lymph % (Auto) 20.9, Leon % (Auto) 10.1 H, Eos % (Auto) [...] as described. Small left hydrocele. Reading Location: [id number] D/C Instructions Discharge Activity: Return to Normal [...] in before D/C Order can be placed): [facility] Facility Charges/Coding Visit Charges Inpatient E&M: 58435 Disch Hosp >30min 02/10/25 1610 <Electronically signed by Isadora Arndt MD> Cosigner Signature (if applicable): CC: Dr. Isadora Arndt MD; No Primary Care Physician~ Signed [facility] Work Phone: 1(899) 380-213807-31-2025 [facility] Medical Records Department [address] [place] [address] Discharge Summary 02/10/25 1105 MR#: [id number] Acct: [id number] Name: SOPHIA CORTES Rep #: [id number] : 1940 84 From: Isadora Arndt MD PCP: Care Physician,No Primary Status:ADM MARCELA Location: [place] [address] Providers Date of Admission: 02/08/25 Date of [...] his sister was his medical power of employee benefits attorney. He came back to the ED [...] normal respiratory effort, nor (more content not included)...[facility]07-30-2025 Progress note Author Isadora Arndt [facility] Note Date/Time February 09, 2025 4:26 pm [facility] Medical Records Department [address] [place] [address] Progress Note 02/09/25 0936 MR#: [id number] Acct: [id number] Name: SOPHIA CORTES Rep #:[id number] : 1940 84 From: Isadora Arndt MD PCP: Care Physician,No Primary Status :ADM MARCELA Location: MS3 [id number] Subjective Subjective Patient seen and examined. HE [...] 02/09/25 08:40 RMA (Rec: 02/09/25 08:40 RMA [id number]) Nutrition Malnutrition Evidence of Yes Malnutrition Exists [...] (Auto) 74.4 H, Lymph % (Auto) 13.6 L,Leon % (Auto) 10.7 H, Eos % (Auto) [...] Clarity Clear, Urine pH 5.0, Ur Specific [place] 1.025, Urine Protein 30 H, Urine Glucose [...] IMPRESSION: No acute cardiopulmonary process. Reading Location: [facility] Physical Exam Const alert, oriented [...] no intubation Charges/Coding Visit Charges Inpatient E&M: 19099 Subs Hosp L2 02/09/25 1431 <Electronically signed [...] Signature (if applicable): Date cc: ~* Signed [facility] Work Phone: 1(799) 264-615607-30-2025 Progress note [facility] Medical Records Department [address] [place] [address] Progress Note 02/09/25 0936 MR#: [id number] Acct: [id number] Name: SOPHIA CORTES Rep #:[id number] : 1940 84 From: Isadora Arndt MD PCP: Care Physician,No Primary Status :ADM MARCELA Location: [facility] CG212-4 Subjective Subjective Patient seen and examined. HE [...] 02/09/25 08:40 RMA (Rec: 02/09/25 08:40 RMA [id number]) Nutrition Malnutrition Evidence of Yes Malnutrition Exists [...] (Auto) 74.4 H, Lymph % (Auto) 13.6 L,Leon % (Auto) 10.7 H, Eos % (Auto) [...] Clarity Clear, Urine pH 5.0, Ur Specific [place] 1.025, Urine Protein 30 H, Urine Glucose [...] IMPRESSION: No acute intracranial pathology. Reading [facility] Chest X-Ray 02/08/25 12:10 IMPRESSION: No acute cardiopulmonary process. Reading Location: [facility] Physical Exam Const alert, oriented [...] no intubation Charges/Coding Visit Charges Inpatient E&M: 73353 Subs Hosp L2 02/09/25 1431 Isadora Arndt [...] Signature (if applicable): Date cc: ~* Signed [facility]07-30-2025 Radiology Diagnostic study note [facility] Imaging Services [address] [place] [address] Testicular with Arterial Flow MR#: [id number] Acct: [id number] Name: SOPHIA CORTES Rep #: [id number] : 1940 M 84 From: Tony Albarado MD PCP: Care Physician,No Primary Status: ADM MARCELA Study:Testicular with Arterial Flow Date of E xam: 02/09/25 Exam# [id number] Ordering Dr: Tamar Arndt MD PROCEDURE: TESTICULAR WITH ARTERIAL FLOW [...] as described. Small left hydrocele. Reading Location: [facility] CC: Dr. Isadora Arndt MD; No Primary Care Physician ~ [employer] Pusher: Signed [facility]07-29-2025 History and physical note [facility] Note Date/Time February 08, 2025 3:36 pm [facility] Medical Records Department [address] [place] [address] H&P Exam - Hospitalist 02/08/25 1345 MR#: [id number] Acct: [id number] Name: SOPHIA CORTES Rep #:[id number] : 1940 84 From: Ajith pineda DO PCP: Care Physician,No Primary Status :ADM MARCELA [place] [facility] [place] HPI - General General Date of Admission: 02/08/25 Date of Service: 02/08/25 Chief Complaint: Failure to thrive HPI Narrative SOPHIA CORTES, is a 84 M who presented to [facility] ED on 02/08/2025 with adult failure to thrive. Patient lives at home alone. He was recently seen in the ED here on 01/23 for suicidal ideation and was admitted to apsychiatric facility for this. Has history of dementia and sister is medical power of employee benefits attorney. Medical history otherwise significant for CAD [...] currently. Will be admitted for further management. 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 Reading [facility] Assessment & Plan Assessment/Plan (1) Adult failure to thrive: (2) Dementia: (3) Weakness: PLAN: Plan Patient is an 84-year-old male who presented to [facility] ED on02/08/2025 with adult failure to thrive. 1. Adult failure to thrive in setting of dementia ? Admit under observation status to [facility]. PT/OT/case management consulted. Nutrition consulted given BMI [...] it all". Required inpatient psychiatric hospitalization at [facility] and was apparently started on Risperdal [...] atrial flutter ? History of anterior wall MN in 2009 requiring stenting. Had resultant ischemic [...] mild creatinine elevation as above. Is on [id number] mg, will reduce to 40 mg given age greater than 75. Continue home aspirin. DVT prophylaxis: Lovenox CODE STATUS: DNR CCA, DNI. This was confirmed with the patient's sister who is patient's medical power of employee benefits attorney. She notes that this was patient's expressed wishes in the past. Expected disposition: TBD Total clinical time spent by myself addressing the patient's medical issues, reviewing all the data, and collaborating with patient's care team: 75 minutes. Charges/Coding Visit Charges Inpatient E&M: 56032 Init Hosp L3 02/08/25 1536 <Electronically signed by Ajith Zimmer DO> Cosigner Signature (if applicable): CC: Dr. Ajith Zimmer DO; No Primary Care Physician~ Signed [facility] Work Phone: 1(912) 417-883007-29-2025 Discharge summary Author Michael Allen [facility] Note Date/Time February 08, 2025 3:12 pm [facility] Medical Records Department [address] [place] [address] Emergency Department Summary 02/08/25 MR#: [id number] Acct: [id number] Name: SOPHIA CORTES Rep #:[id number] : 1940 84 From: Michale Allen DO PCP: Care Physician,No Primary Status :ADM MARCELA Location: [place] [address] HPI History of Present Illness Chief Complaint: General Illness Detail of Chief Complaint: Failure to thrive and needing usp placement Informant: patient and family Narrative Narrative: Patient presents to the emergency department with his sister. He apparently is not doing well at home and lives alone. She feels he needs usp placement. Patient recently admitted to a psychiatric facility for suicidal ideation on January 23. Patient has history of some dementia. Sister has medical power of employee benefits attorney for him. He is not eating and drinking normally. He is answering some questions but not really having conversations. Sister does not feel he can care for himself. He developed a slight cough a few days ago. [facility] Medical History (Updated 02/08/25 @ 13:[address] 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 Reading [facility] [facility] 1 view chest x-ray obtained [...] Primary [Primary Care Provider] - Print Language: Andorran Disposition Disposition: Acute Care Hospital [facility] What to do if you have Problems For any increased pain, shortness of breath, bleeding, nausea or vomiting, chestpain, or any unexpected problems, contact your Primary Care Provider. Call [facility] ([phone]) or report to the closest Emergency Room. Call 911 if necessary. 02/08/25 1512 <Electronically signed by Michael Allen DO> Cosigner Signature (if applicable): CC: No Primary Care Physician ~ Signed [facility] Work Phone: 1(214) 861-188807-29-2025 History and physical note [facility] Medical Records Department [address] [place] [address] H&P Exam - Hospitalist 02/08/25 1345 MR#: [id number] Acct: [id number] Name: CAITYJOSESOPHIA Rep #:[id number] : 1940 84 From: Ajith pineda DO PCP: Care Physician,No Primary Status :ADM MARCELA Location: [place] [address] HPI - General General Date of Admission: 02/08/25 Date of Service: 02/08/25 Chief Complaint: Failure to thrive HPI Narrative SOPHIA CORTES, is a 84 M who presented to [facility] ED on 02/08/2025 with adult failure to thrive. Patient lives at home alone. He was recently seen in the ED here on 01/23 for suicidal ideation and was admitted to apsychiatric facility for this. Has history of dementia and sister is medical power of employee benefits attorney. Medical history otherwise significant for CAD [...] currently. Will be admitted for further management. 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 Reading Location: [facility] Chest X-Ray 02/08/25 12:10 IMPRESSION: No acute cardiopulmonary process. Reading Location: [facility] Assessment & Plan Assessment/Plan (1) Adult failure to thrive: (2) Dementia: (3) Weakness: PLAN: Plan Patient is an 84-year-old male who presented to [facility] ED on02/08/2025 with adult failure to thrive. 1. Adult failure to thrive in setting of dementia ? Admit under observation status to [facility]. PT/OT/case management consulted. Nutrition consulted given BMI [...] it all". Required inpatient psychiatric hospitalization at [facility] andwas apparently started on Risperdal 1 [...] atrial flutter ? History of anterior wall MN in 2009 requiring stenting. Had resultant ischemic [...] mild creatinine elevation as above. Is on cfrwcurnebvh12 mg, will reduce to 40 mg givenage greater than 75. Continue home aspirin. DVT prophylaxis: Lovenox CODE STATUS: DNR CCA, DNI. This was confirmed with the patient's sister who is patient's medical power of employee benefits attorney. She notes that this was patient's expressed wishes in the past. Expected disposition: TBD Total clinical time spent by myself addressing the patient's medical issues, reviewing all the data, and collaborating with patient's care team: 75 minutes. Charges/Coding Visit Charges Inpatient E&M: 54080 Init Hosp L3 02/08/25 1536 Cosigner Signature (if applicable): CC: Dr. Ajith Zimmer DO; No Primary Care Physician~ Signed [facility]07-29-2025 Discharge summary [facility] Medical Records Department [address] [place] [address] Emergency Department Summary 02/08/25 MR#: [id number] Acct: [id number] Name: SOPHIA CORTES Rep #:[id number] : 1940 84 From: Michael Allen DO PCP: Care Physician,No Primary Status :ADM MARCELA Location: [address] History of Present Illness Chief Complaint: General Illness Detail of Chief Complaint: Failure to thrive and needing usp placement Informant: patient and family Narrative Narrative: Patient presents to the emergency department with his sister. He apparently is not doing well at home and lives alone. She feels he needs usp placement. Patient recently admitted to a psychiatric facility for suicidal ideation on January 23. Patient has history of some dementia. Sister has medical power of employee benefits attorney for him. He is not eating and drinking normally. He is answering some questions but not really having conversations. Sister does not feel he can care for himself. He developed a slight cough a few days ago. [facility] Medical History (Updated 02/08/25 @ 13:[address] 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 Reading [facility] 1 view chest x-ray obtained [...] Primary [Primary Care Provider] - Print Language: Andorran Disposition Disposition: Acute Care Hospital [facility] What to do if you have Problems For any increased pain, shortness of breath, bleeding, nausea or vomiting, chestpain, or any unexpected problems, contact your Primary Care Provider. Call [facility] Registry ([phone]) or report tothe closest Emergency Room. Call 911 if necessary. 02/08/25 1512 Cosigner Signature (if applicable): CC: No Primary Care Physician ~ Signed [facility]07-29-2025 Radiology Diagnostic study note [facility] Imaging Services [address] [place], [place] [address] Brain/Head without Contrast MR#: [id number] Acct: [id number] Name: SOPHIA CORTES Rep #: [id number] : 1940 M 84 From: Richard Sullivan MD PCP: Care Physician,No Primary Status: REG ER Study:Brain/Head without Contrast Date of Exa m: 02/08/25 Exam# [id number] Ordering Dr: Briana Aleln DO EXAM: NONCONTRAST CT SCAN OF THE [...] Allen DO; No Primary Care Physician ~ Steel Erecting Pusher: Signed [facility]07-29-2025 Radiology Diagnostic study note [facility] Imaging Services [address] [place], [place] [address] Chest 1 View (Portable) MR#: [id number] Acct: [id number] Name: SOPHIA CORTES Rep #: [id number] : 1940 M 84 From: Odalys Lindsay MD PCP: Care Physician,No Primary Status: REG ER Study:Chest 1 View (Portable) Date of Exam: 02/08/25 Exam# [id number] Ordering Dr: Briana Allen DO EXAM: XR [...] IMPRESSION: No acute cardiopulmonary process. Reading Location: [facility] CC: Dr. Michael Allen DO; No Primary Care Physician ~ Steel Erecting Pusher: Signed [facility]07-13-2025 Discharge summary Author Henry Florentino 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) LV (left ventricular) mural thrombus Atherosclerosis of [place] coronary artery of [place] heart without angina pectoris (07/28/09) Ischemic cardiomyopathy [...] % (Auto) 58.0 Lymph % (Auto) 31.2 Leon % (Auto) 8.7 Eos % (Auto) 1.7 [...] 02:00 IMPRESSION: NO ACUTE FINDINGS Reading Location: [place] [address] Discharge Plan Triage Chief Complaint: Suicidal ED [...] Qty: 180 3RF Primary Care Provider: Care Physician,Cristina Primary Referrals: NOT,DEFINED [Non-Staff] - Print Language: Andorran What to do if you have Problems For any increased pain, shortness of breath, bleeding, nausea or vomiting, chestpain, or any unexpected problems, contact your Primary Care Provider. Call [employer] [facility] ([phone]) or report to the closest Emergency Room. Call 911 if necessary. 01/23/25 0650 <Electronically signed by Henry Florentino DO> Cosigner Signature (if applicable): CC: No Primary Care Physician ~ Signed 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) LV (left ventricular) mural thrombus Atherosclerosis of [place] coronary artery of [place] heart without angina pectoris (07/28/09) Ischemic cardiomyopathy [...] % (Auto) 58.0 Lymph % (Auto) 31.2 Leon % (Auto) 8.7 Eos % (Auto) 1.7 [...] 02:00 IMPRESSION: NO ACUTE FINDINGS Reading Location: [place] [address] Discharge Plan Triage Chief Complaint: Suicidal ED [...] Primary Referrals: NOT,DEFINED [Non-Staff] - Print Language: Andorran What to do if you have Problems For any increased pain, shortness of breath, bleeding, nausea or vomiting, chestpain, or any unexpected problems, contact your Primary Care Provider. Call [facility] ([phone]) or report tothe closest Emergency Room. Call 911 if necessary. 01/23/25 0650 Cosigner Signature (if applicable): CC: No Primary Care Physician ~ Signed [facility]07-13-2025 Radiology Diagnostic study note [facility] Imaging Services [address] [place], [place] [id number] Brain/Head without Contrast MR#: [id number] Acct: [id number] Name: SOPHIA CORTES Rep #: [id number] : 1940 M 84 From: Ricky Alvarez MD PCP: Care Physician,No Primary Status: REG ER Study:Brain/Head without Contrast Date of Exa m: 01/23/25 Exam# [id number] Ordering Dr: Henry Kirkpatrick DO PROCEDURE: BRAIN/HEAD [...] Contrast IMPRESSION: NO ACUTE FINDINGS Reading Location: [id number] CC: Dr. Henry Florentino DO; No Primary Care Physician ~ Steel Erecting Pusher: Signed [facility]05-21-2025 Procedure [facility] [address] [place] [address] Pacemaker Check Date of Service: 12/01/24 1714 MR#: [id number] Acct: [id number] Name: SOPHIA CORTES Hector Rep #: [id number] : 1940 From: Toya burciaga Age/Sex: 83/M Location: [facility] Status: Signed Billing Codes ICD Device Billin ICD Dev Prog Eval, Dual Assessment and Plan Assessment and Plan (1) Ischemic cardiomyopathy: Status: Chronic (2) Presence of automatic implantable cardioverter-defibrillator: Status: Chronic Comment: [employer] ICD Dual Chamber (3) NSVT (nonsustained ventricular tachycardia): Status: Chronic 12/01/24 1714 > Date _ Toya Gonzalez Signature: Date (if applicable) CC: ~ [facility]05-21-2025 Evaluation note* Diagnosis Onset Date Resolution Status Admit Date Ischemic cardiomyopathy chronic M ay 2024 1:55pm NSVT (nonsustained ventricular tachycardia) chronic November 1:55pm 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, 2012 chronic 2024 1:55pm Bradycardia chronic December 01 1:56pm Essential hypertension chronic 2024 1:56pm History of coronary artery stent placement July 28, 2009 chronic December 01 1:56pm HLD (hyperlipidemia) chronic December 01, 2024 1:56pm Ischemic cardiomyopathy chronic M ay 2024 1:56pm Memory deficit chronic December 01, 2024 1:56pm NSVT (nonsustained ventricular tachycardia) chronic November 1:56pm Paroxysmal atrial flutter chronic December 01, 2024 1:56pm 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, 2012 chronic y 2024 1:56pm [facility] Work Phone: [phone] Evaluation note* Diagnosis Onset Date Resolution Status [...] automatic implantable cardioverter-defibrillator July 23, 2012 chronic y 2024 1:56pm Adult failure to thrive acute J milli 2024 1:45pm Dementia acute February 08 1:45pm Weakness acute February 08 1:45pm Memory deficit chronic February 08, 2025 1:45pm [facility] Work Phone: 1([phone]) 133-706805-25-2019 Discharge summary Author Isadora Corey Hospital Note Date/Time February 10, 2025 3:37 pm [facility] Medical Records Department [address] [place] [address] Transfer to [facility] MR#: [id number] Acct: [id number] Name: SOPHIA CORTES Rep #:[id number] : 1940 84 From: Isadora Arndt MD PCP: Care Physician,No Primary Status :ADM MARCELA Certification of patient admission REQUIRED AT TIME OF ADMISSION. I CERTIFY THAT [facility] ARE REQUIRED TO BE GIVEN ON AN IN-PATIENT BASIS BECAUSE OF THE ABOVE NAMED PATIENT'S NEED FOR LONG TERM CARE ON A CONTINUING BASIS FOR THE CONDITION(S) FOR WHICH HE/SHE WAS RECEIVING IN-PATIENT HOSPITAL SERVICES PRIOR TO HIS/HER TRANSFER TO THE [facility]. 02/10/25 1105<Electronically signed by Isadora Arndt MD> [...] in before D/C Order can be placed): [facility] 02/10/25 1105 <Electronically signed by Isadora Arndt MD> Cosigner Signature (if applicable): CC: Dr. Ajith Zimmer DO; No Primary Care Physician ~ 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 Presence of automatic implan table cardioverter-defibrillator July 23, 2012 [facility] Work Phone: 1(556) 992-910701-10-2013 Evaluation note* Diagnosis Onset Date Resolution Status Paroxysmal atrial flutter ac q[place]alangin 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 Presence of automatic implan table cardioverter-defibrillator July 23, 2012 chronic Essential hypertension acute Memory deficit acute NSVT (nonsustained ventricular tachycardia) acute Paroxysmal atrial flutter ac [place] Bradycardia chronic History of coronary artery stent placement July chronic HLD (hyperlipidemia) chronic 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 Presence of automatic implan table cardioverter-defibrillator July 23, 2012 [facility] Work Phone: 1(775) 431-222901-15-2010 Evaluation note* Diagnosis Onset Date Resolution Status Admit Date Bradycardia chronic December 01 1:56pm Essential hypertension chronic Ma 2024 1:56pm History of coronary artery stent placement July 28, 2009 chronic December 01 1:56pm HLD (hyperlipidemia) chronic December 01, 2024 1:56pm Ischemic cardiomyopathy chronic ay 2024 1:56pm Memory deficit chronic December 01, 2024 1:56pm NSVT (nonsustained ventricular tachycardia) chronic November 1:56pm Paroxysmal atrial flutter chronic December 01, 2024 1:56pm 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, 2012 chronic Ma y 2024 1:56pm [facility] Work Phone: Reason for referral (narrative)No reason for referral information available[facility] Work Phone: Chief Complaint and Reason for [...] @ 2 December 01, 2024 1:56p m Chief Complaint [...] Do you have a Healthcare Power of Restaurant Shift Supervisor? No January 22, 2025 11:50pm Advance Directive Response Recorded Date/ Time Do you have a Healthcare Power of Restaurant Shift Supervisor? No January 22, 2025 11:50pm Do you have a Healthcare Power of Restaurant Shift Supervisor? No February 08, 2025 12:21pm Advance Directive Response Recorded Date/ Time Do you have a Healthcare Power of Restaurant Shift Supervisor? No January 22, 2025 11:50pm Do you have a Healthcare Power of Restaurant Shift Supervisor? No February 08, 2025 3:39pm Summary Purpose [...] 2024 Toya Herrera Attending Provider Active Start: 2024 End: December 01, 2024 Team Status: Inactive Member Role Status Dates Marcelino Arizmendi CURTAIN FITTER, CURTAIN FITTER-C Attending Provider Active S tart: December 01, [...] Inactive Member Role Status Dates Marcelino Arizmendi CURTAIN FITTER, CURTAIN FITTER-C Attending Provider Active No Primary Care Physician Primary Care Provider, Refer ring Provider Active Team Status: Inactive Member Role Status Dates No Primary Care Physician Primary Care Provider Active Dr. Wolfgang Conde MD Attending Provider Active Team Status: Inactive Member Role Status Dates No Primary Care Physician Primary Care Provider Active Marcelino Arizmendi CURTAIN FITTER, CURTAIN FITTER-C Attending Provider, Referring Pro vider Active Team Status: Active Member Role Status Dates No Primary Care Physician Family Provider Active Team Status: Inactive Member Role Status Dates No Primary Care Physician Primary Care Provider, Refer ring Provider Active Toya Herrera Attending Provider Active Team Status: Inactive Member Role Status Dates No Primary Care Physician Primary Care Provider, Refer ring Provider Active Marcelino Arizmendi CURTAIN FITTER, CURTAIN FITTER-C Attending Provider Active Team Status: Active Member Role Status Dates Dr. Wolfgang Conde MD Attending Provider, Referring Pro vider Active Team Status: Active Member Role Status Dates No Primary Care Physician Primary Care Provider Active Start: December 01, 2024 No Primary Care Physician Referring Provider Active Start: December 01, 2024 Toya Herrera Attending Provider Active Start: 2024 Team Status: Inactive Member Role Status [...] Inactive Member Role/Relationship Status Dates Marcelino Arizmendi CURTAIN FITTER, CURTAIN FITTER-C Attending Provider Active S tart: December 01, 2024 End: December 01, 2024 No Primary Care Physician Primary Care Provider Active Start: December 01, 2024 End: December 01, 2024 No Primary Care Physician Referring Provider Active Start: December 01, 2024 End: December 01, 2024 Team Status: Inactive Member Role/Relationship Status Dates Dr. Henry Florentino DO Emergency Provider Activ e Start: January 22, 2025 End: January 23, 2025 No Primary Care Physician Primary Care Provider Active Start: January 22, 2025 End: January 23, 2025 Team Status: Inactive Member Role/Relationship Status Dates Dr. Henry Klusty-Carolina , DO Attending Provider Activ e Start: [...] February 10, 2025 Dr. Michael Allen , DO Emergency Provider Active S tart: February 08, 2025 End: February 10, 2025 Dr. Ajith Zimmer , DO Admit Provider Active Start: February 08, 2025 End: February 10, 2025 Dr. Ajith Zimmer , DO Other Provider Active Start: February 08, [...] Start: February 09, 2025 Dr. Ajith Zimmer , Other Provider Active Start: February 09, 2025 Dr. Isadora Arndt MD Attending Provider Active Start: February 09, 2025 Dr. Isadora Arndt MD Other Provider Active St art: February 09, 2025 Team Status: Active Member Role/Relationship Status Dates No Primary Care Physician Primary Care Provider Active Start: February 10, 2025 Dr. Michael Allen , Emergency Provider Active S tart: February 10, 2025 Dr. Ajith Zimmer , Admit Provider Active Start: February 10, 2025 [...] ized section and content) DATE CREATED AUTHOR 04/04/2025 [facility] FOR RECORDS PERTAINING TO PATIENTS WHO [...] BE BASED ON THE PRIMARY CLINICAL RECORDS. [employer] provides no warranty or guarantee of the accuracy or completeness of information in this document.
[2025-05-03 08:18] LABS: Hematocrit 31.4 % (40-54); Hemoglobin 10.3 g/dL (13.0-16.5); Mean Corp Hgb Conc 32.8 g/dL (32-36); Mean Corpuscular Volume 100.6 fL (80-94); Mean Platelet Vol. 11.7 fl (6.2-12.0); Platelet Count 119 K/mm3 (150-450); RBC Distribution Width CV 13.7 % (11.6-14.6); RBC Distribution Width SD 51.0 fl (35.1-43.9); Red Blood Count 3.12 M/mm3 (4.6-6.2); White Blood Count 3.8 K/mm3 (4.4-11.0)
[2025-05-03 08:27] LABS: Anion Gap 8 (5-15); BUN 19 mg/dL (4-19); BUN/Creat Ratio 21.8 RATIO (10-20); Calcium,Total 8.3 mg/dL (7.6-11.0); Carbon Dioxide 24.4 mmol/L (21.0-32.0); Chloride 105 mmol/L (98-108); Glucose 78 mg/dL (70-99); Potassium 4.0 mmol/L (3.3-5.1)
== END ==
LOC: OLS.WCC 05:00
PROVIDERS: PCP Family Medicine; Visit Provider Family Medicine
DX: I10 Essential (primary) hypertension (principal); E78.5 Hyperlipidemia, unspecified
CPT/HCPCS: 36415; 80048; 85027

== ENCOUNTER → 2025-06-01 05:00 | Outpatient (REF) | payer MEDICARE, SELFPAY ==
--- OUTSIDE RECORDS SUMMARY | 2025-06-01 04:55 | XMS RPT_ITS | CCD ---
Author Organization [facility] Care Team Providers Care Inside Sales Consultant Name Role Phone CHERYL Herrera, Gina Arteaga [...] Wolfgang Conde Attending Provider [phone] Roof SEISMOLOGY TECHNICAL OFFICER, SEISMOLOGY TECHNICAL OFFICER-C Marcelino Johnson Attending Provider Care Physician, No Primary Referring Provider Un available Care Physician, No Primary Primary Care Provider Unavailable Care Physician, No Primary Referring Provider Un available Toya Herrera Attending Provider Unavailable Roof SEISMOLOGY TECHNICAL OFFICER, SEISMOLOGY TECHNICAL OFFICER-C Marcelino Johnson Attending Provider Dr. Wolfgang Conde Attending Provider [phone] Wolfgang Conde Referring Provider [phone] Care Physician, No Primary Primary Care Provider Unavailable Care Physician, No Primary Referring Provider Un available Toya Herrera Attending Provider Unavailable Roof SEISMOLOGY TECHNICAL OFFICER-CMarcelino Attending Provider Dr. Wolfgang Conde MD Attending Provider [phone] Dr. Wolfgang Conde MD Referring Provider Care Physician, No Primary Primary Care Provider Unavailable Care Physician, No Primary Referring Provider Un available Dr. Henry [place] DO Emergency Provider Chadd ALVA Dr. Henry Attending Provider Alejandro DO, Dr. Rodriguez Emergency Provider Goran ALVA, Dr. Canseco Admit Provider [phone] Goran ALVA, Dr. Canseco Attending Provider Goran ALVA, Dr. Canseco Other Provider Hair REZA, Dr. Isadora Tirado Attending Provider Hair REZA, Dr. Isadora Tirado Other Provider Marcelino Moreno Primary Care Unavailable Marcelino Moreno Attending Unavailable Care Physician, [...] Unavailable Ajith Zimmer Admitting Unavailable Isadora Arndt Consulting Unavailable Roof SEISMOLOGY TECHNICAL OFFICER, Marcelino Johnson Attending Unavailable Care Physician, No Primary Referring Unava ilable Care Physician, No Primary Primary Care Unava ilable Ajith Zimmer Attending Unavailable Roof SEISMOLOGY TECHNICAL OFFICER, Marcelino Johnson Attending Unavailable Care Physician, No Primary Referring Unava ilable Care Physician, No Primary Primary Care Unava ilable Care Physician, No Primary Primary Care Unava ilable Elton, Wolfgang Referring Unavailable EltonPetros layneril Attending Unavailable Elton, [place] Attending Unavailable Care Physician, No Primary Primary Care Unava ilable Henry [place] Attending Unavailabl e Marcelino Moreno Referring Unavailable Marcelino Moreno Attending Unavailable Marcelino Moreno Primary Care Unavailable Medications Current Medications Medication Drug Class(es) [...] TABS One tablet by mouth daily ASPIRIN [id number] Deepak Dawson MD Start: 11-20-2010 take 1 tablet by cydney th once daily ASPIRIN 81 MG TABS One tablet by mouth daily ASPIRIN [id number] Tricia Arteaga Jason Start: 11-20-2010 take 1 tablet by cydney th once daily ASPIRIN EC 81 MG TBEC One tablet by mouth daily ASPIRIN [id number] Jeimy Mendez RN carvedilol 3.125 mg oral [...] One tablet by mouth twice daily CARVEDILOL [id number] Wolfgang Conde MD donepezil hydrochloride 10 mg [...] hydrochloride 5 mg oral tablet (2 sources) V-hbvdha-S-asparta te Receptor Antagonist Start: 02-08-2025 take 1 [...] One tablet by mouth daily ATORVASTATIN CALCIUM [id number] Wolfgang Conde MD clopidogrel 75 mg oral [...] One tablet by mouth daily CLOPIDOGREL BISULFATE [id number] Jeimy Huang PA-C lisinopril 10 mg oral tablet (20 sources) Angiotensin Converting Enzyme Inhibitor Start: 07-17-2023 End: 09-23-2024 take 1 tablet by mouth once daily Lisinopril 10 mg tablet Discontinued 10 mg PO daily 90 3 September 16, 2023 2:00pm September 23, 2024 [...] TABS One tablet by mouth daily LISINOPRIL [id number] Wolfgang Conde MD warfarin sodium 1 mg oral tablet (20 sources) Vitamin K Antagonist Start: 11-20-2010 End: 10-11-2011 take 1 tablet by mouth once daily in the evening, then take 2.5 tablets by mouth, then take 3.5 tablets by mouth COUMADIN 1 MG TABS 1 tablet by mouth every evening with a 2.5mg tablet to = 3.5 WARFARIN SODIUM [id number] Tricia M Jason Start: 11-20-2010 End: 10-11-2011 take 1 tablet by mouth once daily in the evening, then take 1 tablet by mouth COUMADIN 2.5 MG TABS 1 tablet by mouth every evening with a 1mg tablet to - 3.5 mg WARFARIN SODIUM [id number] Wolfgang Conde MD Problems Active Problems Problem Classification Problem Date Documented Da te Episodic/Chronic Acute and unspecified renal failure (2 sources) Acute kidney failure with tubular necrosis; Translations: [Acute kidney failure with tubular necrosis] Onset: 03-30-2025 Episodic Acute myocardial infarction (20 sources) Non-ST elevation (NSTEMI) myocardial infarction; Translations: [Acute subendocardial infarction] Onset: 11-20-2010 11-20-2010 Chronic Cardiac dysrhythmias (20 sources) Bradycardia; Translations: [Paroxysmal atrial flutter] Onset: 06-22-2013 06-22-2013 Chronic Cardiac dysrhythmias (18 sources) Bradycardia; Translations: [Bradycardia, unspecified] Onset: 05-13-2025 07-23-2017 Episodic Conduction disorders (20 sources) Presence of automatic (implantable) cardiac defibrillator; Translations: [Automatic implantable cardiac defibrillator in situ] Onset: 07-23-2012 07-30-2012 Chronic Comment on above: [employer] ergen ICD Dual Chamber Coronary atherosclerosis and other heart disease (20 sources) Coronary arteriosclerosis; Translations: [Coronary atherosclerosis] Onset: 07-28-2009 Resolved: 12-13-2015 11-20-2010 Chronic Comment on above: [id number] and Mid LAD w/ Veriflex BMS 3.0 x 20 mm and Micro Finance Clerk BMS 2.5 x 18 mm 07/28/09 Delirium, dementia, and amnestic and other cognitive disorders (4 sources) Dementia; Translations: [Unspecified dementia without behavioral disturbance] Onset: 02-10-2025 02-08-2025 Chronic Disorders of lipid metabolism (20 sources) Hyperlipidemia; Translations: [Hyperlipidemia, unspecified] Onset: 06-10-2012 06-10-2012 Chronic Essential hypertension (18 sources) Essential hypertension; Translations: [Essential (primary) hypertension] Onset: 05-13-2025 07-17-2023 Chronic Malaise and fatigue (5 sources) Asthenia; Translations: [Weakness] Onset: 02-10-2025 02-08-2025 Episodic Other aftercare (7 sources) Other correction (current) drug therapy; Translations: [Other correction (current) drug therapy] Onset: 11-20-2010 11-20-2010 Episodic Other and ill-defined heart disease (6 sources) Mural thrombus of heart; 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, not elsewhere classified] Onset: 11-20-2010 11-20-2010 Chronic Other and ill-defined heart disease (1 source) Intracardiac thrombosis, not elsewhere classified; 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, not elsewhere classified] Onset: 05-13-2025 Chronic Other nutritional; endocrine; and metabolic disorders (3 sources) Adult failure to thrive syndrome; Translations: [Adult failure to thrive] 02-08-2025 Episodic Other nutritional; endocrine; and metabolic disorders (2 sources) Adult failure to thrive; Translations: [Adult failure to thrive] Onset: 02-10-2025 Episodic Apple-; endo-; and myocarditis; cardiomyopathy (10 sources) Cardiomyopathy in diseases classified elsewhere; Translations: [Cardiomyopathy in diseases classified elsewhere] Onset: 11-20-2010 11-20-2010 Chronic Residual codes; unclassified (14 sources) Memory impairment; Translations: [Other amnesia] 11-10-2023 Episodic Unclassified (7 sources) Percutaneous transluminal coronary angioplasty ; Translations: [Coronary angioplasty status] Onset: 11-20-2010 11-20-2010 Unclassified (4 sources) Long-term drug therapy; Translations: [Other computer terminal operator (current) drug therapy] Onset: 11-20-2010 11-20-2010 Unclassified [...] [EKG]] Onset: 1 Resolved: 6 11-20-2010 Episodic Residual codes; unclassified (2 sources) Other amnesia; Translations: [Memory loss] Onset: 5 11-10-2023 Episodic Suicide and intentional self-inflicted injury (1 source) Suicidal ideations; Translations: [Suicidal ideations] Onset: 5 Episodic Results Test Name Value Interpretation Reference Range Facility Basic Metabolic Profile (BMP )on 05-03-2025 BUN/CRE 21.8 RATIO High 05-02 [facility] Comment on above: Order Comment: 110.1 Performed By: #### L 500.2500, L100.0500 #### [facility] [place], [address] Calcium [Mass/Vol] 8.3 mg/dL Normal 7.6-11.0 [facility] Comment on above: Order Comment: 110.1 Performed By: #### L 500.2500, L100.0500 #### [facility] [address] [place], [address] Chloride [Moles/Vol] 105 mmol/L Normal 98-108 [facility] Comment on above: Order Comment: 110.1 Performed By: #### L 500.2500, L100.0500 #### [facility] [address] [place], [address] CO2 [Moles/Vol] 24.4 mmol/L Normal 21.0-32.0 [facility] Comment on above: Order Comment: 110.1 Performed By: #### L 500.2500, L100.0500 #### [facility] [address] [place], [address] Creatinine [Mass/Vol] 0.87 mg/dL Normal 0.70-1.20 [facility] Comment on above: Order Comment: 110.1 Performed By: #### L 500.2500, L100.0500 #### [facility] [address] [place], [address] GAP 8 Normal 5-15 [facility] Comment on above: Order Comment: 110.1 Performed By: #### L 500.2500, L100.0500 #### [facility] [address] [place], [address] GFR/1.73 sq M.predicted among non-blacks MDRD (S/P/Bld) [Vol rate/Area] 86 mL/min/{1.73_m2} Normal >60 [facility] Comment on above: Order Comment: 110.1 Result Comment: mL/m in/1.73m2 CKD-EPI Creatinine Equation (2020) Performed By: #### L 500.2500, L100.0500 #### [facility] [address] [place], [address] Glucose [Mass/Vol] 78 mg/dL Normal 70-99 [facility] Comment on above: Order Comment: 110.1 Performed By: #### L 500.2500, L100.0500 #### [facility] [address] [place], [address] Potassium [Moles/Vol] 4.0 mmol/L Normal 3.3-5.1 [facility] Comment on above: Order Comment: 110.1 Performed By: #### L 500.2500, L100.0500 #### [facility] [address] [place], [address] Sodium [Moles/Vol] 137 mmol/L Normal 133-145 [facility] Comment on above: Order Comment: 110.1 Performed By: #### L 500.2500, L100.0500 #### [facility] [address] [place], [address] Urea nitrogen [Mass/Vol] 19 mg/dL Normal 4-19 [facility] Comment on above: Order Comment: 110.1 Performed By: #### L 500.2500, L100.0500 #### [facility] [address] [place], [address] CBC-Complete Blood Cnt No Di ffon 05-03-2025 Erythrocyte distribution width (RBC) [Ratio] 13.7 % Normal 11.6-14.6 [facility] Comment on above: Order Comment: 110.1 Performed By: #### L 500.2500, L100.0500 #### [facility] [address] [place], [address] Hematocrit (Bld) [Volume fraction] 31.4 % Low 40-54 [facility] Comment on above: Order Comment: 110.1 Performed By: #### L 500.2500, L100.0500 #### [facility] [address] [place], [address] Hemoglobin (Bld) [Mass/Vol] 10.3 g/dL Low 13.0-16.5 [facility] Comment on above: Order Comment: 110.1 Performed By: #### L 500.2500, L100.0500 #### [facility] [address] [place], [address] MCH (RBC) [Entitic mass] 33.0 pg High 27.0-32.0 [facility] Comment on above: Order Comment: 110.1 Performed By: #### L 500.2500, L100.0500 #### [facility] [address] [place], [address] MCHC (RBC) [Mass/Vol] 32.8 g/dL Normal 32-36 [facility] Comment on above: Order Comment: 110.1 Performed By: #### L 500.2500, L100.0500 #### [facility] [address] [place], [address] MCV (RBC) [Entitic vol] 100.6 fL High 80-94 [facility] Comment on above: Order Comment: 110.1 Performed By: #### L 500.2500, L100.0500 #### [facility] [address] [place], [address] Platelet mean volume (Bld) [Entitic vol] 11.7 fL Normal 6.2-12.0 [facility] Comment on above: Order Comment: 110.1 Performed By: #### L 500.2500, L100.0500 #### [facility] [address] [place], [address] Platelets (Bld) [#/Vol] 119 10*3/uL Low 150-450 [facility] Comment on above: Order Comment: 110.1 Performed By: #### L 500.2500, L100.0500 #### [facility] [address] [place], [address] RBC (Bld) [#/Vol] 3.12 10*6/uL Low 4.6-6.2 [facility] Comment on above: Order Comment: 110.1 Performed By: #### L 500.2500, L100.0500 #### [facility] [address] [place], [address] RDW SD 51.0 fl High 35.1-43.9 [facility] Comment on above: Order Comment: 110.1 Performed By: #### L 500.2500, L100.0500 #### [facility] [address] [place], [address] WBC (Bld) [#/Vol] 3.8 10*3/uL Low 4.4-11.0 [facility] Comment on above: Order Comment: 110.1 Performed By: #### L 500.2500, L100.0500 #### [facility] [address] [place], [address] Basic Metabolic Profile (BMP )on 04-04-2025 BUN/CRE 14.5 RATIO Normal 10-20 [facility] Comment on above: Order Comment: 110.1 Performed By: #### L 100.0100, L500.2500 #### [facility] [address] [place], [address] Calcium [Mass/Vol] 7.9 mg/dL Normal 7.6-11.0 [facility] Comment on above: Order Comment: 110.1 Performed By: #### L 100.0100, L500.2500 #### [facility] [address] [place], [address] Chloride [Moles/Vol] 101 mmol/L Normal 98-108 [facility] Comment on above: Order Comment: 110.1 Performed By: #### L 100.0100, L500.2500 #### [facility] [address] [place], [address] CO2 [Moles/Vol] 23.6 mmol/L Normal 21.0-32.0 [facility] Comment on above: Order Comment: 110.1 Performed By: #### L 100.0100, L500.2500 #### [facility] [address] [place], [address] Creatinine [Mass/Vol] 1.00 mg/dL Normal 0.70-1.20 [facility] Comment on above: Order Comment: 110.1 Performed By: #### L 100.0100, L500.2500 #### [facility] [address] [place], [address] GAP 9 Normal 5-15 [facility] Comment on above: Order Comment: 110.1 Performed By: #### L 100.0100, L500.2500 #### [facility] [address] [place], [address] GFR/1.73 sq M.predicted among non-blacks MDRD (S/P/Bld) [Vol rate/Area] 75 mL/min/{1.73_m2} Normal >60 [facility] Comment on above: Order Comment: 110.1 Result Comment: mL/m in/1.73m2 CKD-EPI Creatinine Equation (2020) Performed By: #### L 100.0100, L500.2500 #### [facility] [address] [place], [address] Glucose [Mass/Vol] 78 mg/dL Normal 70-99 [facility] Comment on above: Order Comment: 110.1 Performed By: #### L 100.0100, L500.2500 #### [facility] [address] [place], [address] Potassium [Moles/Vol] 3.8 mmol/L Normal 3.3-5.1 [facility] Comment on above: Order Comment: 110.1 Performed By: #### L 100.0100, L500.2500 #### [facility] [address] [place], [address] Sodium [Moles/Vol] 134 mmol/L Normal 133-145 [facility] Comment on above: Order Comment: 110.1 Performed By: #### L 100.0100, L500.2500 #### [facility] [address] [place], [address] Urea nitrogen [Mass/Vol] 15 mg/dL Normal 4-19 [facility] Comment on above: Order Comment: 110.1 Performed By: #### L 100.0100, L500.2500 #### [facility] [address] [place], [address] CBC-Complete Blood Cnt No Di ffon 04-04-2025 Erythrocyte distribution width (RBC) [Ratio] 15.4 % High 11.6-14.6 [facility] Comment on above: Order Comment: 110.1 Performed By: #### L 100.0100, L500.2500 #### [facility] [address] [place], [address] Hematocrit (Bld) [Volume fraction] 25.3 % Low 40-54 [facility] Comment on above: Order Comment: 110.1 Performed By: #### L 100.0100, L500.2500 #### [facility] [address] [place], [address] Hemoglobin (Bld) [Mass/Vol] 8.5 g/dL Low 13.0-16.5 [facility] Comment on above: Order Comment: 110.1 Performed By: #### L 100.0100, L500.2500 #### [facility] [address] [place], [address] MCH (RBC) [Entitic mass] 32.4 pg High 27.0-32.0 [facility] Comment on above: Order Comment: 110.1 Performed By: #### L 100.0100, L500.2500 #### [facility] [address] [place], [address] MCHC (RBC) [Mass/Vol] 33.6 g/dL Normal 32-36 [facility] Comment on above: Order Comment: 110.1 Performed By: #### L 100.0100, L500.2500 #### [facility] [address] [place], [address] MCV (RBC) [Entitic vol] 96.6 fL High 80-94 [facility] Comment on above: Order Comment: 110.1 Performed By: #### L 100.0100, L500.2500 #### [facility] [address] [place], [address] Platelet mean volume (Bld) [Entitic vol] 11.3 fL Normal 6.2-12.0 [facility] Comment on above: Order Comment: 110.1 Performed By: #### L 100.0100, L500.2500 #### [facility] [address] [place], [address] Platelets (Bld) [#/Vol] 111 10*3/uL Low 150-450 [facility] Comment on above: Order Comment: 110.1 Performed By: #### L 100.0100, L500.2500 #### [facility] [address] [place], [address] RBC (Bld) [#/Vol] 2.62 10*6/uL Low 4.6-6.2 [facility] Comment on above: Order Comment: 110.1 Performed By: #### L 100.0100, L500.2500 #### [facility] [address] [place], [address] RDW SD 54.6 fl High 35.1-43.9 [facility] Comment on above: Order Comment: 110.1 Performed By: #### L 100.0100, L500.2500 #### [facility] [address] [place], [address] WBC (Bld) [#/Vol] 4.2 10*3/uL Low 4.4-11.0 [facility] Comment on above: Order Comment: 110.1 Performed By: #### L 100.0100, L500.2500 #### [facility] [address] [place], [address] Lipid Profileon 04-04-2025 CHOL:HDL 1.68 Normal [facility] Comment on above: Order Comment: 110.1 Performed By: #### L 100.0100, L500.2500 #### [facility] [address] [place], [address] Cholesterol [Mass/Vol] 76 mg/dL Normal <=200 [facility] Comment on above: Order Comment: 110.1 Result Comment: Chol esterol level, Desirable <200 mg/dL Borderline high cholesterol 200-239 mg/dL High cholesterol >=240 mg/dL Recommendations of the NCEP Adult Treatment Panel for the following risk-cutoff thresholds for the [place] population. Performed By: #### L 100.0100, L500.2500 #### [facility] [address] [place], [address] Cholesterol in HDL [Mass/Vol] 45 mg/dL Normal [facility] Comment on above: Order Comment: 110.1 Result Comment: Jesusita onal Cholesterol Education Program (NCEP) guidelines: <40 mg/dL: Low HDL-cholesterol (major risk factor for CHD) >= 60 mg/dL: High HDL-cholesterol (negative risk factor for CHD) HDL-cholesterol is affected by a number of factors, e.g. smoking, exercise, hormones, sex and age. Performed By: #### L 100.0100, L500.2500 #### [facility] [address] [place], [address] Cholesterol in LDL [Mass/Vol] 20 mg/dL Normal [facility] Comment on above: Order Comment: 110.1 Result Comment: Bord mfzckz=954-071 mg/dL Higher Iiqh=289 mg/dL or greater Friedwald Equation for LDL-C Performed By: #### L 100.0100, L500.2500 #### [facility] [address] [place], [address] Cholesterol in VLDL [Mass/Vol] 10 mg/dL Normal 5-40 [facility] Comment on above: Order Comment: 110.1 Performed By: #### L 100.0100, L500.2500 #### [facility] [address] [place], [address] Triglyceride [Mass/Vol] 52 mg/dL Normal [facility] Comment on above: Order Comment: 110.1 Result Comment: The drugs N-Acetylcysteine and Metamizole may falsely depress this assay. Normal range: <150 mg/dL Borderline High: 150-199 mg/dL High: 200-499 mg/dL Very High: >500 mg/dL Performed By: #### L 100.0100, L500.2500 #### [facility] [address] [place], [address] Basic Metabolic Profile (BMP )on 04-01-2025 BUN/CRE 10.6 RATIO Normal 10-20 [facility] Comment on above: Order Comment: 110.1 Performed By: #### L 500.4100, L100.0500, L500.2500 #### [facility] [address] [place], [address] Calcium [Mass/Vol] 8.5 mg/dL Normal 7.6-11.0 [facility] Comment on above: Order Comment: 110.1 Performed By: #### L 500.4100, L100.0500, L500.2500 #### [facility] [address] [place], [address] Chloride [Moles/Vol] 102 mmol/L Normal 98-108 [facility] Comment on above: Order Comment: 110.1 Performed By: #### L 500.4100, L100.0500, L500.2500 #### [facility] [address] [place], [address] CO2 [Moles/Vol] 23.9 mmol/L Normal 21.0-32.0 [facility] Comment on above: Order Comment: 110.1 Performed By: #### L 500.4100, L100.0500, L500.2500 #### [facility] [address] [place], [address] Creatinine [Mass/Vol] 0.96 mg/dL Normal 0.70-1.20 [facility] Comment on above: Order Comment: 110.1 Performed By: #### L 500.4100, L100.0500, L500.2500 #### [facility] [address] [place], [address] GAP 10 Normal 5-15 [facility] Comment on above: Order Comment: 110.1 Performed By: #### L 500.4100, L100.0500, L500.2500 #### [facility] [address] [place], [address] GFR/1.73 sq M.predicted among non-blacks MDRD (S/P/Bld) [Vol rate/Area] 79 mL/min/{1.73_m2} Normal >60 [facility] Comment on above: Order Comment: 110.1 Result Comment: mL/m in/1.73m2 CKD-EPI Creatinine Equation (2020) Performed By: #### L 500.4100, L100.0500, L500.2500 #### [facility] [address] [place], [address] Glucose [Mass/Vol] 76 mg/dL Normal 70-99 [facility] Comment on above: Order Comment: 110.1 Performed By: #### L 500.4100, L100.0500, L500.2500 #### [facility] [address] [place], [address] Potassium [Moles/Vol] 3.8 mmol/L Normal 3.3-5.1 [facility] Comment on above: Order Comment: 110.1 Performed By: #### L 500.4100, L100.0500, L500.2500 #### [facility] [address] [place], [address] Sodium [Moles/Vol] 135 mmol/L Normal 133-145 [facility] Comment on above: Order Comment: 110.1 Performed By: #### L 500.4100, L100.0500, L500.2500 #### [facility] [address] [place], [address] Urea nitrogen [Mass/Vol] 10 mg/dL Normal 4-19 [facility] Comment on above: Order Comment: 110.1 Performed By: #### L 500.4100, L100.0500, L500.2500 #### [facility] [address] [place], [address] CBC-Complete Blood Cnt No Di ffon 04-01-2025 Erythrocyte distribution width (RBC) [Ratio] 15.0 % High 11.6-14.6 [facility] Comment on above: Order Comment: 110.1 Performed By: #### L 500.4100, L100.0500, L500.2500 #### [facility] [address] [place], [address] Hematocrit (Bld) [Volume fraction] 25.5 % Low 40-54 [facility] Comment on above: Order Comment: 110.1 Performed By: #### L 500.4100, L100.0500, L500.2500 #### [facility] [address] [place], [address] Hemoglobin (Bld) [Mass/Vol] 8.7 g/dL Low 13.0-16.5 [facility] Comment on above: Order Comment: 110.1 Performed By: #### L 500.4100, L100.0500, L500.2500 #### [facility] [address] [place], [address] MCH (RBC) [Entitic mass] 32.5 pg High 27.0-32.0 [facility] Comment on above: Order Comment: 110.1 Performed By: #### L 500.4100, L100.0500, L500.2500 #### [facility] [address] [place], [address] MCHC (RBC) [Mass/Vol] 34.1 g/dL Normal 32-36 [facility] Comment on above: Order Comment: 110.1 Performed By: #### L 500.4100, L100.0500, L500.2500 #### [facility] [address] [place], [address] MCV (RBC) [Entitic vol] 95.1 fL High 80-94 [facility] Comment on above: Order Comment: 110.1 Performed By: #### L 500.4100, L100.0500, L500.2500 #### [facility] [address] [place], [address] Platelet mean volume (Bld) [Entitic vol] 11.1 fL Normal 6.2-12.0 [facility] Comment on above: Order Comment: 110.1 Performed By: #### L 500.4100, L100.0500, L500.2500 #### [facility] [address] [place], [address] Platelets (Bld) [#/Vol] 122 10*3/uL Low 150-450 [facility] Comment on above: Order Comment: 110.1 Performed By: #### L 500.4100, L100.0500, L500.2500 #### [facility] [address] [place], [address] RBC (Bld) [#/Vol] 2.68 10*6/uL Low 4.6-6.2 [facility] Comment on above: Order Comment: 110.1 Performed By: #### L 500.4100, L100.0500, L500.2500 #### [facility] [address] [place], [address] RDW SD 51.4 fl High 35.1-43.9 [facility] Comment on above: Order Comment: 110.1 Performed By: #### L 500.4100, L100.0500, L500.2500 #### [facility] [address] [place], [address] WBC (Bld) [#/Vol] 3.3 10*3/uL Low 4.4-11.0 [facility] Comment on above: Order Comment: 110.1 Performed By: #### L 500.4100, L100.0500, L500.2500 #### [facility] [address] [place], [address] Lipid Profileon 04-01-2025 CHOL:HDL 1.84 Normal [facility] Comment on above: Order Comment: 110.1 Performed By: #### L 500.4100, L100.0500, L500.2500 #### [facility] [address] [place], [address] Cholesterol [Mass/Vol] 82 mg/dL Normal <=200 [facility] Comment on above: Order Comment: 110.1 Result Comment: Chol esterol level, Desirable <200 mg/dL Borderline high cholesterol 200-239 mg/dL High cholesterol >=240 mg/dL Recommendations of the NCEP Adult Treatment Panel for the following risk-cutoff thresholds for the [place] population. Performed By: #### L 500.4100, L100.0500, L500.2500 #### [facility] [address] [place], [address] Cholesterol in HDL [Mass/Vol] 45 mg/dL Normal [facility] Comment on above: Order Comment: 110.1 Result Comment: Jesusita onal Cholesterol Education Program (NCEP) guidelines: <40 mg/dL: Low HDL-cholesterol (major risk factor for CHD) >= 60 mg/dL: High HDL-cholesterol (negative risk factor for CHD) HDL-cholesterol is affected by a number of factors, e.g. smoking, exercise, hormones, sex and age. Performed By: #### L 500.4100, L100.0500, L500.2500 #### [facility] [address] [place], [address] Cholesterol in LDL [Mass/Vol] 22 mg/dL Normal [facility] Comment on above: Order Comment: 110.1 Result Comment: Bord ckjjgx=249-057 mg/dL Higher Owal=805 mg/dL or greater Friedwald Equation for LDL-C Performed By: #### L 500.4100, L100.0500, L500.2500 #### [facility] [address] [place], [address] Cholesterol in VLDL [Mass/Vol] 16 mg/dL Normal 5-40 [facility] Comment on above: Order Comment: 110.1 Performed By: #### L 500.4100, L100.0500, L500.2500 #### [facility] [address] [place], [address] Triglyceride [Mass/Vol] 80 mg/dL Normal [facility] Comment on above: Order Comment: 110.1 Result Comment: The drugs N-Acetylcysteine and Metamizole may falsely depress this assay. Normal range: <150 mg/dL Borderline High: 150-199 mg/dL High: 200-499 mg/dL Very High: >500 mg/dL Performed By: #### L 500.4100, L100.0500, L500.2500 #### [facility] [address] [place], [address] CBC-Complete Blood Cnt No Di ffon 03-02-2025 Erythrocyte distribution width (RBC) [Ratio] 13.1 % Normal 11.6-14.6 [facility] Comment on above: Order Comment: 110.1 Performed By: #### L 500.4100, L100.0500, L500.2500 #### [facility] [address] [place], [address] Hematocrit (Bld) [Volume fraction] 32.8 % Low 40-54 [facility] Comment on above: Order Comment: 110.1 Performed By: #### L 500.4100, L100.0500, L500.2500 #### [facility] [address] [place], [address] Hemoglobin (Bld) [Mass/Vol] 11.0 g/dL Low 13.0-16.5 [facility] Comment on above: Order Comment: 110.1 Performed By: #### L 500.4100, L100.0500, L500.2500 #### [facility] [address] [place], [address] MCH (RBC) [Entitic mass] 31.4 pg Normal 27.0-32.0 [facility] Comment on above: Order Comment: 110.1 Performed By: #### L 500.4100, L100.0500, L500.2500 #### [facility] [address] [place], [address] MCHC (RBC) [Mass/Vol] 33.5 g/dL Normal 32-36 [facility] Comment on above: Order Comment: 110.1 Performed By: #### L 500.4100, L100.0500, L500.2500 #### [facility] [address] [place], [address] MCV (RBC) [Entitic vol] 93.7 fL Normal 80-94 [facility] Comment on above: Order Comment: 110.1 Performed By: #### L 500.4100, L100.0500, L500.2500 #### [facility] [address] [place], [address] Platelet mean volume (Bld) [Entitic vol] 11.8 fL Normal 6.2-12.0 [facility] Comment on above: Order Comment: 110.1 Performed By: #### L 500.4100, L100.0500, L500.2500 #### [facility] [address] [place], [address] Platelets (Bld) [#/Vol] 113 10*3/uL Low 150-450 [facility] Comment on above: Order Comment: 110.1 Performed By: #### L 500.4100, L100.0500, L500.2500 #### [facility] [address] [place], [address] RBC (Bld) [#/Vol] 3.50 10*6/uL Low 4.6-6.2 [facility] Comment on above: Order Comment: 110.1 Performed By: #### L 500.4100, L100.0500, L500.2500 #### [facility] [address] [place], [address] RDW SD 44.6 fl High 35.1-43.9 [facility] Comment on above: Order Comment: 110.1 Performed By: #### L 500.4100, L100.0500, L500.2500 #### [facility] [address] [place], [address] WBC (Bld) [#/Vol] 6.8 10*3/uL Normal 4.4-11.0 [facility] Comment on above: Order Comment: 110.1 Performed By: #### L 500.4100, L100.0500, L500.2500 #### [facility] [address] [place], [address] Basic Metabolic Profile (BMP )on 03-01-2025 BUN/CRE 15.2 RATIO Normal 10-20 [facility] Comment on above: Order Comment: 110.1 Performed By: #### L 500.4100, L100.0500, L500.2500 #### [facility] [address] [place], [address] Calcium [Mass/Vol] 8.6 mg/dL Normal 7.6-11.0 [facility] Comment on above: Order Comment: 110.1 Performed By: #### L 500.4100, L100.0500, L500.2500 #### [facility] [address] [place], [address] Chloride [Moles/Vol] 104 mmol/L Normal 98-108 [facility] Comment on above: Order Comment: 110.1 Performed By: #### L 500.4100, L100.0500, L500.2500 #### [facility] [address] [place], [address] CO2 [Moles/Vol] 23.1 mmol/L Normal 21.0-32.0 [facility] Comment on above: Order Comment: 110.1 Performed By: #### L 500.4100, L100.0500, L500.2500 #### [facility] [address] [place], [address] Creatinine [Mass/Vol] 1.02 mg/dL Normal 0.70-1.20 [facility] Comment on above: Order Comment: 110.1 Performed By: #### L 500.4100, L100.0500, L500.2500 #### [facility] [address] [place], [address] GAP 11 Normal 5-15 [facility] Comment on above: Order Comment: 110.1 Performed By: #### L 500.4100, L100.0500, L500.2500 #### [facility] [address] [place], [address] GFR/1.73 sq M.predicted among non-blacks MDRD (S/P/Bld) [Vol rate/Area] 73 mL/min/{1.73_m2} Normal >60 [facility] Comment on above: Order Comment: 110.1 Result Comment: mL/m in/1.73m2 CKD-EPI Creatinine Equation (2020) Performed By: #### L 500.4100, L100.0500, L500.2500 #### [facility] [address] [place], [address] Glucose [Mass/Vol] 75 mg/dL Normal 70-99 [facility] Comment on above: Order Comment: 110.1 Performed By: #### L 500.4100, L100.0500, L500.2500 #### [facility] [address] [place], [address] Potassium [Moles/Vol] 3.9 mmol/L Normal 3.3-5.1 [facility] Comment on above: Order Comment: 110.1 Performed By: #### L 500.4100, L100.0500, L500.2500 #### [facility] [address] [place], [address] Sodium [Moles/Vol] 138 mmol/L Normal 133-145 [facility] Comment on above: Order Comment: 110.1 Performed By: #### L 500.4100, L100.0500, L500.2500 #### [facility] [address] [place], [address] Urea nitrogen [Mass/Vol] 16 mg/dL Normal 4-19 [facility] Comment on above: Order Comment: 110.1 Performed By: #### L 500.4100, L100.0500, L500.2500 #### [facility] [address] [place], [address] CBC-Complete Blood Cnt No Di ffon 03-01-2025 HCT Normal 40-54 [facility] Comment on above: Order Comment: 110.1 Result Comment: This specimen has been REJECTED due to Laboratory criteria: Quanity Not Sufficient. MYEAGER has been notified of need of recollection. 03/01/25914 Kamilah Zimmerman Performed By: #### L 500.4100, L100.0500, L500.2500 #### [facility] [address] [place], [address] HGB Normal 13.0-16.5 [facility] Comment on above: Order Comment: 110.1 Result Comment: This specimen has been REJECTED due to Laboratory criteria: Quanity Not Sufficient. MYEAGER has been notified of need of recollection. 03/01/25914 Kamilah Zimmerman Performed By: #### L 500.4100, L100.0500, L500.2500 #### [facility] [address] [place], [address] MCH Normal 27.0-32.0 [facility] Comment on above: Order Comment: 110.1 Result Comment: This specimen has been REJECTED due to Laboratory criteria: Quanity Not Sufficient. MYEAGER has been notified of need of recollection. 03/01/25914 Kamilah Zimmerman Performed By: #### L 500.4100, L100.0500, L500.2500 #### [facility] [address] [place], [address] MCHC Normal 32-36 [facility] Comment on above: Order Comment: 110.1 Result Comment: This specimen has been REJECTED due to Laboratory criteria: Quanity Not Sufficient. MYEAGER has been notified of need of recollection. 03/01/25914 Kamilah Zimmerman Performed By: #### L 500.4100, L100.0500, L500.2500 #### [facility] [address] [place], [address] MCV Normal 80-94 [facility] Comment on above: Order Comment: 110.1 Result Comment: This specimen has been REJECTED due to Laboratory criteria: Quanity Not Sufficient. MYEAGER has been notified of need of recollection. 03/01/25914 Kamilah Zimmerman Performed By: #### L 500.4100, L100.0500, L500.2500 #### [facility] [address] [place], [address] PLT Normal 150-450 [facility] Comment on above: Order Comment: 110.1 Result Comment: This specimen has been REJECTED due to Laboratory criteria: Quanity Not Sufficient. MYEAGER has been notified of need of recollection. 03/01/25914 Kamilah Zimmerman Performed By: #### L 500.4100, L100.0500, L500.2500 #### [facility] [address] [place], [address] RBC Normal 4.6-6.2 [facility] Comment on above: Order Comment: 110.1 Result Comment: This specimen has been REJECTED due to Laboratory criteria: Quanity Not Sufficient. MYEAGER has been notified of need of recollection. 03/01/25914 Kamilah Zimmerman Performed By: #### L 500.4100, L100.0500, L500.2500 #### [facility] [address] [place], [address] RDW CV Normal 11.6-14.6 [facility] Comment on above: Order Comment: 110.1 Result Comment: This specimen has been REJECTED due to Laboratory criteria: Quanity Not Sufficient. MYEAGER has been notified of need of recollection. 03/01/25914 Kamilah Zimmerman Performed By: #### L 500.4100, L100.0500, L500.2500 #### [facility] [address] [place], [address] RDW SD Normal 35.1-43.9 [facility] Comment on above: Order Comment: 110.1 Result Comment: This specimen has been REJECTED due to Laboratory criteria: Quanity Not Sufficient. MYEAGER has been notified of need of recollection. 03/01/25914 Kamilah Zimmerman Performed By: #### L 500.4100, L100.0500, L500.2500 #### [facility] [address] [place], [address] WBC Normal 4.4-11.0 [facility] Comment on above: Order Comment: 110.1 Result Comment: This specimen has been REJECTED due to Laboratory criteria: Quanity Not Sufficient. LISHA has been notified of need of recollection. 03/01/25 0915 Kamilah Zimmerman Performed By: #### L 500.4100, L100.0500, L500.2500 #### [facility] [address] [place], [address] Lipid Profileon 03-01-2025 CHOL:HDL 2.34 Normal [facility] Comment on above: Order Comment: 110.1 Performed By: #### L 500.4100, L100.0500, L500.2500 #### [facility] [address] [place], [address] Cholesterol [Mass/Vol] 81 mg/dL Normal <=200 [facility] Comment on above: Order Comment: 110.1 Result Comment: Chol esterol level, Desirable <200 mg/dL Borderline high cholesterol 200-239 mg/dL High cholesterol >=240 mg/dL Recommendations of the NCEP Adult Treatment Panel for the following risk-cutoff thresholds for the [place] population. Performed By: #### L 500.4100, L100.0500, L500.2500 #### [facility] [address] [place], [address] Cholesterol in HDL [Mass/Vol] 35 mg/dL Low [facility] Comment on above: Order Comment: 110.1 Result Comment: Jesusita onal Cholesterol Education Program (NCEP) guidelines: <40 mg/dL: Low HDL-cholesterol (major risk factor for CHD) >= 60 mg/dL: High HDL-cholesterol (negative risk factor for CHD) HDL-cholesterol is affected by a number of factors, e.g. smoking, exercise, hormones, sex and age. Performed By: #### L 500.4100, L100.0500, L500.2500 #### [facility] [address] [place], [address] Cholesterol in LDL [Mass/Vol] 30 mg/dL Normal [facility] Comment on above: Order Comment: 110.1 Result Comment: Bord ruabmw=127-866 mg/dL Higher Uvlp=285 mg/dL or greater Friedwald Equation for LDL-C Performed By: #### L 500.4100, L100.0500, L500.2500 #### [facility] [address] [place], [address] Cholesterol in VLDL [Mass/Vol] 16 mg/dL Normal 5-40 [facility] Comment on above: Order Comment: 110.1 Performed By: #### L 500.4100, L100.0500, L500.2500 #### [facility] [address] [place], [address] Triglyceride [Mass/Vol] 79 mg/dL Normal [facility] Comment on above: Order Comment: 110.1 Result Comment: The drugs N-Acetylcysteine and Metamizole may falsely depress this assay. Normal range: <150 mg/dL Borderline High: 150-199 mg/dL High: 200-499 mg/dL Very High: >500 mg/dL Performed By: #### L 500.4100, L100.0500, L500.2500 #### [facility] [address] [place], [address] Basic Metabolic Profile (BMP )on 02-17-2025 BUN Normal 4-19 [facility] Comment on above: Result Comment: Canc elled via OM: Order cancelled - Patient discharged Performed By: #### L 100.0100, L500.2500 #### [facility] [address] [place], [address] BUN/CRE Normal -20 [facility] Comment on above: Result Comment: Canc elled via OM: Order cancelled - Patient discharged Performed By: #### L 100.0100, L500.2500 #### [facility] [address] [place], [address] Calcium Normal 7.6-11.0 [facility] Comment on above: Result Comment: Canc elled via OM: Order cancelled - Patient discharged Performed By: #### L 100.0100, L500.2500 #### [facility] [address] [place], [address] CL Normal 98-108 [facility] Comment on above: Result Comment: Canc elled via OM: Order cancelled - Patient discharged Performed By: #### L 100.0100, L500.2500 #### [facility] [address] [place], [address] CO2 Normal 21.0-32.0 [facility] Comment on above: Result Comment: Canc elled via OM: Order cancelled - Patient discharged Performed By: #### L 100.0100, L500.2500 #### [facility] [address] [place], [address] CREAT,SERUM Normal 0.70-1.20 [facility] Comment on above: Result Comment: Canc elled via OM: Order cancelled - Patient discharged Performed By: #### L 100.0100, L500.2500 #### [facility] [address] [place], [address] eGFR Normal >60 [facility] Comment on above: Result Comment: Canc elled via OM: Order cancelled - Patient discharged Performed By: #### L 100.0100, L500.2500 #### [facility] [address] [place], [address] GAP Normal 5-15 [facility] Comment on above: Result Comment: Canc elled via OM: Order cancelled - Patient discharged Performed By: #### L 100.0100, L500.2500 #### [facility] [address] [place], [address] GLU Normal 70-99 [facility] Comment on above: Result Comment: Canc elled via OM: Order cancelled - Patient discharged Performed By: #### L 100.0100, L500.2500 #### [facility] [address] [place], [address] Potassium Normal 3.3-5.1 [facility] Comment on above: Result Comment: Canc elled via OM: Order cancelled - Patient discharged Performed By: #### L 100.0100, L500.2500 #### [facility] [address] [place], [address] Basic Metabolic Profile (BMP) Normal 133-145 [facility] Comment on above: Result Comment: Canc elled via OM: Order cancelled - Patient discharged Performed By: #### L 100.0100, L500.2500 #### [facility] [address] [place], [address] CBC W/Diff, Automatedon 08-0 7-2024 Absolute Neut Normal 2.0-7.7 [facility] Comment on above: Result Comment: Canc elled via OM: Order cancelled - Patient discharged Performed By: #### L 100.0100, L500.2500 #### [facility] [address] [place], [address] HCT Normal 40-54 [facility] Comment on above: Result Comment: Canc elled via OM: Order cancelled - Patient discharged Performed By: #### L 100.0100, L500.2500 #### [facility] [address] [place], [address] HGB Normal 13.0-16.5 [facility] Comment on above: Result Comment: Canc elled via OM: Order cancelled - Patient discharged Performed By: #### L 100.0100, L500.2500 #### [facility] [address] [place], [address] MCH Normal 27.0-32.0 [facility] Comment on above: Result Comment: Canc elled via OM: Order cancelled - Patient discharged Performed By: #### L 100.0100, L500.2500 #### [facility] [address] [place], [address] MCHC Normal 32-36 [facility] Comment on above: Result Comment: Canc elled via OM: Order cancelled - Patient discharged Performed By: #### L 100.0100, L500.2500 #### [facility] [address] [place], [address] MCV Normal 80-94 [facility] Comment on above: Result Comment: Canc elled via OM: Order cancelled - Patient discharged Performed By: #### L 100.0100, L500.2500 #### [facility] [address] [place], [address] NEUT% Normal 47-70 [facility] Comment on above: Result Comment: Canc elled via OM: Order cancelled - Patient discharged Performed By: #### L 100.0100, L500.2500 #### [facility] [address] [place], [address] PLT Normal 150-450 [facility] Comment on above: Result Comment: Canc elled via OM: Order cancelled - Patient discharged Performed By: #### L 100.0100, L500.2500 #### [facility] [address] [place], [address] RBC Normal 4.6-6.2 [facility] Comment on above: Result Comment: Canc elled via OM: Order cancelled - Patient discharged Performed By: #### L 100.0100, L500.2500 #### [facility] [address] [place], [address] RDW CV Normal 11.6-14.6 [facility] Comment on above: Result Comment: Canc elled via OM: Order cancelled - Patient discharged Performed By: #### L 100.0100, L500.2500 #### [facility] [address] [place], [address] RDW SD Normal 35.1-43.9 [facility] Comment on above: Result Comment: Canc elled via OM: Order cancelled - Patient discharged Performed By: #### L 100.0100, L500.2500 #### [facility] [address] [place], [address] WBC Normal 4.4-11.0 [facility] Comment on above: Result Comment: Canc elled via OM: Order cancelled - Patient discharged Performed By: #### L 100.0100, L500.2500 #### [facility] [address] [place], [address] Basic Metabolic Profile (BMP )on 02-16-2025 BUN Normal 4-19 [facility] Comment on above: Result Comment: Canc elled via OM: Order cancelled - Patient discharged Performed By: #### L 500.4100, L100.0500, L500.2500 #### [facility] [address] [place], [address] BUN/CRE Normal 10-20 [facility] Comment on above: Result Comment: Canc elled via OM: Order cancelled - Patient discharged Performed By: #### L 500.4100, L100.0500, L500.2500 #### [facility] [address] [place], [address] Calcium Normal 7.6-11.0 [facility] Comment on above: Result Comment: Canc elled via OM: Order cancelled - Patient discharged Performed By: #### L 500.4100, L100.0500, L500.2500 #### [facility] [address] [place], [address] CL Normal 98-108 [facility] Comment on above: Result Comment: Canc elled via OM: Order cancelled - Patient discharged Performed By: #### L 500.4100, L100.0500, L500.2500 #### [facility] [address] [place], [address] CO2 Normal 21.0-32.0 [facility] Comment on above: Result Comment: Canc elled via OM: Order cancelled - Patient discharged Performed By: #### L 500.4100, L100.0500, L500.2500 #### [facility] [address] [place], [address] CREAT,SERUM Normal 0.70-1.20 [facility] Comment on above: Result Comment: Canc elled via OM: Order cancelled - Patient discharged Performed By: #### L 500.4100, L100.0500, L500.2500 #### [facility] [address] [place], [address] eGFR Normal >60 [facility] Comment on above: Result Comment: Canc elled via OM: Order cancelled - Patient discharged Performed By: #### L 500.4100, L100.0500, L500.2500 #### [facility] [address] [place], [address] GAP Normal 5-15 [facility] Comment on above: Result Comment: Canc elled via OM: Order cancelled - Patient discharged Performed By: #### L 500.4100, L100.0500, L500.2500 #### [facility] [address] [place], [address] GLU Normal 70-99 [facility] Comment on above: Result Comment: Canc elled via OM: Order cancelled - Patient discharged Performed By: #### L 500.4100, L100.0500, L500.2500 #### [facility] [address] [place], [address] Potassium Normal 3.3-5.1 [facility] Comment on above: Result Comment: Canc elled via OM: Order cancelled - Patient discharged Performed By: #### L 500.4100, L100.0500, L500.2500 #### [facility] [address] [place], [address] Basic Metabolic Profile (BMP) Normal 133-145 [facility] Comment on above: Result Comment: Canc elled via OM: Order cancelled - Patient discharged Performed By: #### L 500.4100, L100.0500, L500.2500 #### [facility] [address] [place], [address] CBC W/Diff, Automatedon 08-0 -2024 Absolute Neut Normal 2.0-7.7 [facility] Comment on above: Result Comment: Canc elled via OM: Order cancelled - Patient discharged Performed By: #### L 500.4100, L100.0500, L500.2500 #### [facility] [address] [place], [address] HCT Normal 40-54 [facility] Comment on above: Result Comment: Canc elled via OM: Order cancelled - Patient discharged Performed By: #### L 500.4100, L100.0500, L500.2500 #### [facility] [address] [place], [address] HGB Normal 13.0-16.5 [facility] Comment on above: Result Comment: Canc elled via OM: Order cancelled - Patient discharged Performed By: #### L 500.4100, L100.0500, L500.2500 #### [facility] [address] [place], [address] MCH Normal 27.0-32.0 [facility] Comment on above: Result Comment: Canc elled via OM: Order cancelled - Patient discharged Performed By: #### L 500.4100, L100.0500, L500.2500 #### [facility] [address] [place], [address] MCHC Normal 32-36 [facility] Comment on above: Result Comment: Canc elled via OM: Order cancelled - Patient discharged Performed By: #### L 500.4100, L100.0500, L500.2500 #### [facility] [address] [place], [address] MCV Normal 80-94 [facility] Comment on above: Result Comment: Canc elled via OM: Order cancelled - Patient discharged Performed By: #### L 500.4100, L100.0500, L500.2500 #### [facility] [address] [place], [address] NEUT% Normal 47-70 [facility] Comment on above: Result Comment: Canc elled via OM: Order cancelled - Patient discharged Performed By: #### L 500.4100, L100.0500, L500.2500 #### [facility] [address] [place], [address] PLT Normal 150-450 [facility] Comment on above: Result Comment: Canc elled via OM: Order cancelled - Patient discharged Performed By: #### L 500.4100, L100.0500, L500.2500 #### [facility] [address] [place], [address] RBC Normal 4.6-6.2 [facility] Comment on above: Result Comment: Canc elled via OM: Order cancelled - Patient discharged Performed By: #### L 500.4100, L100.0500, L500.2500 #### [facility] [address] [place], [address] RDW CV Normal 11.6-14.6 [facility] Comment on above: Result Comment: Canc elled via OM: Order cancelled - Patient discharged Performed By: #### L 500.4100, L100.0500, L500.2500 #### [facility] [address] [place], [address] RDW SD Normal 35.1-43.9 [facility] Comment on above: Result Comment: Canc elled via OM: Order cancelled - Patient discharged Performed By: #### L 500.4100, L100.0500, L500.2500 #### [facility] [address] [place], [address] WBC Normal 4.4-11.0 [facility] Comment on above: Result Comment: Canc elled via OM: Order cancelled - Patient discharged Performed By: #### L 500.4100, L100.0500, L500.2500 #### [facility] [address] [place], [address] Basic Metabolic Profile (BMP )on 02-15-2025 BUN Normal 4-19 [facility] Comment on above: Result Comment: Canc elled via OM: Order cancelled - Patient discharged Performed By: #### L 100.0100, L500.2500 #### [facility] [address] [place], [address] BUN/CRE Normal 10-20 [facility] Comment on above: Result Comment: Canc elled via OM: Order cancelled - Patient discharged Performed By: #### L 100.0100, L500.2500 #### [facility] [address] [place], [address] Calcium Normal 7.6-11.0 [facility] Comment on above: Result Comment: Canc elled via OM: Order cancelled - Patient discharged Performed By: #### L 100.0100, L500.2500 #### [facility] [address] [place], [address] CL Normal 98-108 [facility] Comment on above: Result Comment: Canc elled via OM: Order cancelled - Patient discharged Performed By: #### L 100.0100, L500.2500 #### [facility] [address] [place], [address] CO2 Normal 21.0-32.0 [facility] Comment on above: Result Comment: Canc elled via OM: Order cancelled - Patient discharged Performed By: #### L 100.0100, L500.2500 #### [facility] [address] [place], [address] CREAT,SERUM Normal 0.70-1.20 [facility] Comment on above: Result Comment: Canc elled via OM: Order cancelled - Patient discharged Performed By: #### L 100.0100, L500.2500 #### [facility] [address] [place], [address] eGFR Normal >60 [facility] Comment on above: Result Comment: Canc elled via OM: Order cancelled - Patient discharged Performed By: #### L 100.0100, L500.2500 #### [facility] [address] [place], [address] GAP Normal 5-15 [facility] Comment on above: Result Comment: Canc elled via OM: Order cancelled - Patient discharged Performed By: #### L 100.0100, L500.2500 #### [facility] [address] [place], [address] GLU Normal 70-99 [facility] Comment on above: Result Comment: Canc elled via OM: Order cancelled - Patient discharged Performed By: #### L 100.0100, L500.2500 #### [facility] [address] [place], [address] Potassium Normal 3.3-5.1 [facility] Comment on above: Result Comment: Canc elled via OM: Order cancelled - Patient discharged Performed By: #### L 100.0100, L500.2500 #### [facility] [address] [place], [address] Basic Metabolic Profile (BMP) Normal 133-145 [facility] Comment on above: Result Comment: Canc elled via OM: Order cancelled - Patient discharged Performed By: #### L 100.0100, L500.2500 #### [facility] [address] [place], [address] CBC W/Diff, Automatedon 08-0 -2024 Absolute Neut Normal 2.0-7.7 [facility] Comment on above: Result Comment: Canc elled via OM: Order cancelled - Patient discharged Performed By: #### L 100.0100, L500.2500 #### [facility] [address] [place], [address] HCT Normal 40-54 [facility] Comment on above: Result Comment: Canc elled via OM: Order cancelled - Patient discharged Performed By: #### L 100.0100, L500.2500 #### [facility] [address] [place], [address] HGB Normal 13.0-16.5 [facility] Comment on above: Result Comment: Canc elled via OM: Order cancelled - Patient discharged Performed By: #### L 100.0100, L500.2500 #### [facility] [address] [place], [address] MCH Normal 27.0-32.0 [facility] Comment on above: Result Comment: Canc elled via OM: Order cancelled - Patient discharged Performed By: #### L 100.0100, L500.2500 #### [facility] [address] [place], [address] MCHC Normal 32-36 [facility] Comment on above: Result Comment: Canc elled via OM: Order cancelled - Patient discharged Performed By: #### L 100.0100, L500.2500 #### [facility] [address] [place], [address] MCV Normal 80-94 [facility] Comment on above: Result Comment: Canc elled via OM: Order cancelled - Patient discharged Performed By: #### L 100.0100, L500.2500 #### [facility] [address] [place], [address] NEUT% Normal 47-70 [facility] Comment on above: Result Comment: Canc elled via OM: Order cancelled - Patient discharged Performed By: #### L 100.0100, L500.2500 #### [facility] [address] [place], [address] PLT Normal 150-450 [facility] Comment on above: Result Comment: Canc elled via OM: Order cancelled - Patient discharged Performed By: #### L 100.0100, L500.2500 #### [facility] [address] [place], [address] RBC Normal 4.6-6.2 [facility] Comment on above: Result Comment: Canc elled via OM: Order cancelled - Patient discharged Performed By: #### L 100.0100, L500.2500 #### [facility] [address] [place], [address] RDW CV Normal 11.6-14.6 [facility] Comment on above: Result Comment: Canc elled via OM: Order cancelled - Patient discharged Performed By: #### L 100.0100, L500.2500 #### [facility] [address] [place], [address] RDW SD Normal 35.1-43.9 [facility] Comment on above: Result Comment: Canc elled via OM: Order cancelled - Patient discharged Performed By: #### L 100.0100, L500.2500 #### [facility] [address] [place], [address] WBC Normal 4.4-11.0 [facility] Comment on above: Result Comment: Canc elled via OM: Order cancelled - Patient discharged Performed By: #### L 100.0100, L500.2500 #### [facility] [address] [place], [address] Basic Metabolic Profile (BMP )on 02-14-2025 BUN Normal 4-19 [facility] Comment on above: Result Comment: Canc elled via OM: Order cancelled - Patient discharged Performed By: #### L 100.0100, L500.2500 #### [facility] [address] [place], [address] BUN/CRE Normal 10-20 [facility] Comment on above: Result Comment: Canc elled via OM: Order cancelled - Patient discharged Performed By: #### L 100.0100, L500.2500 #### [facility] [address] [place], [address] Calcium Normal 7.6-11.0 [facility] Comment on above: Result Comment: Canc elled via OM: Order cancelled - Patient discharged Performed By: #### L 100.0100, L500.2500 #### [facility] [address] [place], [address] CL Normal 98-108 [facility] Comment on above: Result Comment: Canc elled via OM: Order cancelled - Patient discharged Performed By: #### L 100.0100, L500.2500 #### [facility] [address] [place], [address] CO2 Normal 21.0-32.0 [facility] Comment on above: Result Comment: Canc elled via OM: Order cancelled - Patient discharged Performed By: #### L 100.0100, L500.2500 #### [facility] [address] [place], [address] CREAT,SERUM Normal 0.70-1.20 [facility] Comment on above: Result Comment: Canc elled via OM: Order cancelled - Patient discharged Performed By: #### L 100.0100, L500.2500 #### [facility] [address] [place], [address] eGFR Normal >60 [facility] Comment on above: Result Comment: Canc elled via OM: Order cancelled - Patient discharged Performed By: #### L 100.0100, L500.2500 #### [facility] [address] [place], [address] GAP Normal 5-15 [facility] Comment on above: Result Comment: Canc elled via OM: Order cancelled - Patient discharged Performed By: #### L 100.0100, L500.2500 #### [facility] [address] [place], [address] GLU Normal 70-99 [facility] Comment on above: Result Comment: Canc elled via OM: Order cancelled - Patient discharged Performed By: #### L 100.0100, L500.2500 #### [facility] [address] [place], [address] Potassium Normal 3.3-5.1 [facility] Comment on above: Result Comment: Canc elled via OM: Order cancelled - Patient discharged Performed By: #### L 100.0100, L500.2500 #### [facility] [address] [place], [address] Basic Metabolic Profile (BMP) Normal 133-145 [facility] Comment on above: Result Comment: Canc elled via OM: Order cancelled - Patient discharged Performed By: #### L 100.0100, L500.2500 #### [facility] [address] [place], [address] CBC W/Diff, Automatedon 08-0 Absolute Neut Normal 2.0-7.7 [facility] Comment on above: Result Comment: Canc elled via OM: Order cancelled - Patient discharged Performed By: #### L 100.0100, L500.2500 #### [facility] [address] [place], [address] HCT Normal 40-54 [facility] Comment on above: Result Comment: Canc elled via OM: Order cancelled - Patient discharged Performed By: #### L 100.0100, L500.2500 #### [facility] [address] [place], [address] HGB Normal 13.0-16.5 [facility] Comment on above: Result Comment: Canc elled via OM: Order cancelled - Patient discharged Performed By: #### L 100.0100, L500.2500 #### [facility] [address] [place], [address] MCH Normal 27.0-32.0 [facility] Comment on above: Result Comment: Canc elled via OM: Order cancelled - Patient discharged Performed By: #### L 100.0100, L500.2500 #### [facility] [address] [place], [address] MCHC Normal 32-36 [facility] Comment on above: Result Comment: Canc elled via OM: Order cancelled - Patient discharged Performed By: #### L 100.0100, L500.2500 #### [facility] [address] [place], [address] MCV Normal 80-94 [facility] Comment on above: Result Comment: Canc elled via OM: Order cancelled - Patient discharged Performed By: #### L 100.0100, L500.2500 #### [facility] [address] [place], [address] NEUT% Normal 47-70 [facility] Comment on above: Result Comment: Canc elled via OM: Order cancelled - Patient discharged Performed By: #### L 100.0100, L500.2500 #### [facility] [address] [place], [address] PLT Normal 150-450 [facility] Comment on above: Result Comment: Canc elled via OM: Order cancelled - Patient discharged Performed By: #### L 100.0100, L500.2500 #### [facility] [address] [place], [address] RBC Normal 4.6-6.2 [facility] Comment on above: Result Comment: Canc elled via OM: Order cancelled - Patient discharged Performed By: #### L 100.0100, L500.2500 #### [facility] [address] [place], [address] RDW CV Normal 11.6-14.6 [facility] Comment on above: Result Comment: Canc elled via OM: Order cancelled - Patient discharged Performed By: #### L 100.0100, L500.2500 #### [facility] [address] [place], [address] RDW SD Normal 35.1-43.9 [facility] Comment on above: Result Comment: Canc elled via OM: Order cancelled - Patient discharged Performed By: #### L 100.0100, L500.2500 #### [facility] [address] [place], [address] WBC Normal 4.4-11.0 [facility] Comment on above: Result Comment: Canc elled via OM: Order cancelled - Patient discharged Performed By: #### L 100.0100, L500.2500 #### [facility] [address] [place], [address] Basic Metabolic Profile (BMP )on 02-13-2025 BUN Normal 4-19 [facility] Comment on above: Result Comment: Canc elled via OM: Order cancelled - Patient discharged Performed By: #### L 500.2500, L100.0100 #### [facility] [address] [place], [address] BUN/CRE Normal 10-20 [facility] Comment on above: Result Comment: Canc elled via OM: Order cancelled - Patient discharged Performed By: #### L 500.2500, L100.0100 #### [facility] [address] [place], [address] Calcium Normal 7.6-11.0 [facility] Comment on above: Result Comment: Canc elled via OM: Order cancelled - Patient discharged Performed By: #### L 500.2500, L100.0100 #### [facility] [address] [place], [address] CL Normal 98-108 [facility] Comment on above: Result Comment: Canc elled via OM: Order cancelled - Patient discharged Performed By: #### L 500.2500, L100.0100 #### [facility] [address] [place], [address] CO2 Normal 21.0-32.0 [facility] Comment on above: Result Comment: Canc elled via OM: Order cancelled - Patient discharged Performed By: #### L 500.2500, L100.0100 #### [facility] [address] [place], [address] CREAT,SERUM Normal 0.70-1.20 [facility] Comment on above: Result Comment: Canc elled via OM: Order cancelled - Patient discharged Performed By: #### L 500.2500, L100.0100 #### [facility] [address] [place], [address] eGFR Normal >60 [facility] Comment on above: Result Comment: Canc elled via OM: Order cancelled - Patient discharged Performed By: #### L 500.2500, L100.0100 #### [facility] [address] [place], [address] GAP Normal 5-15 [facility] Comment on above: Result Comment: Canc elled via OM: Order cancelled - Patient discharged Performed By: #### L 500.2500, L100.0100 #### [facility] [address] [place], [address] GLU Normal 70-99 [facility] Comment on above: Result Comment: Canc elled via OM: Order cancelled - Patient discharged Performed By: #### L 500.2500, L100.0100 #### [facility] [address] [place], [address] Potassium Normal 3.3-5.1 [facility] Comment on above: Result Comment: Canc elled via OM: Order cancelled - Patient discharged Performed By: #### L 500.2500, L100.0100 #### [facility] [address] [place], [address] Basic Metabolic Profile (BMP) Normal 133-145 [facility] Comment on above: Result Comment: Canc elled via OM: Order cancelled - Patient discharged Performed By: #### L 500.2500, L100.0100 #### [facility] [address] [place], [address] CBC W/Diff, Automatedon 08-0 -2024 Absolute Neut Normal 2.0-7.7 [facility] Comment on above: Result Comment: Canc elled via OM: Order cancelled - Patient discharged Performed By: #### L 100.0100, L500.2500 #### [facility] [address] [place], [address] HCT Normal 40-54 [facility] Comment on above: Result Comment: Canc elled via OM: Order cancelled - Patient discharged Performed By: #### L 100.0100, L500.2500 #### [facility] [address] [place], [address] HGB Normal 13.0-16.5 [facility] Comment on above: Result Comment: Canc elled via OM: Order cancelled - Patient discharged Performed By: #### L 100.0100, L500.2500 #### [facility] [address] [place], [address] MCH Normal 27.0-32.0 [facility] Comment on above: Result Comment: Canc elled via OM: Order cancelled - Patient discharged Performed By: #### L 100.0100, L500.2500 #### [facility] [address] [place], [address] MCHC Normal 32-36 [facility] Comment on above: Result Comment: Canc elled via OM: Order cancelled - Patient discharged Performed By: #### L 100.0100, L500.2500 #### [facility] [address] [place], [address] MCV Normal 80-94 [facility] Comment on above: Result Comment: Canc elled via OM: Order cancelled - Patient discharged Performed By: #### L 100.0100, L500.2500 #### [facility] [address] [place], [address] NEUT% Normal 47-70 [facility] Comment on above: Result Comment: Canc elled via OM: Order cancelled - Patient discharged Performed By: #### L 100.0100, L500.2500 #### [facility] [address] [place], [address] PLT Normal 150-450 [facility] Comment on above: Result Comment: Canc elled via OM: Order cancelled - Patient discharged Performed By: #### L 100.0100, L500.2500 #### [facility] [address] [place], [address] RBC Normal 4.6-6.2 [facility] Comment on above: Result Comment: Canc elled via OM: Order cancelled - Patient discharged Performed By: #### L 100.0100, L500.2500 #### [facility] [address] [place], [address] RDW CV Normal 11.6-14.6 [facility] Comment on above: Result Comment: Canc elled via OM: Order cancelled - Patient discharged Performed By: #### L 100.0100, L500.2500 #### [facility] [address] [place], [address] RDW SD Normal 35.1-43.9 [facility] Comment on above: Result Comment: Canc elled via OM: Order cancelled - Patient discharged Performed By: #### L 100.0100, L500.2500 #### [facility] [address] [place], [address] WBC Normal 4.4-11.0 [facility] Comment on above: Result Comment: Canc elled via OM: Order cancelled - Patient discharged Performed By: #### L 100.0100, L500.2500 #### [facility] [address] [place], [address] Basic Metabolic Profile (BMP )on 02-12-2025 BUN Normal 4-19 [facility] Comment on above: Result Comment: Canc elled via OM: Order cancelled - Patient discharged Performed By: #### L 500.4100, L100.0500, L500.2500 #### [facility] [address] [place], [address] BUN/CRE Normal 10-20 [facility] Comment on above: Result Comment: Canc elled via OM: Order cancelled - Patient discharged Performed By: #### L 500.4100, L100.0500, L500.2500 #### [facility] [address] [place], [address] Calcium Normal 7.6-11.0 [facility] Comment on above: Result Comment: Canc elled via OM: Order cancelled - Patient discharged Performed By: #### L 500.4100, L100.0500, L500.2500 #### [facility] [address] [place], [address] CL Normal 98-108 [facility] Comment on above: Result Comment: Canc elled via OM: Order cancelled - Patient discharged Performed By: #### L 500.4100, L100.0500, L500.2500 #### [facility] [address] [place], [address] CO2 Normal 21.0-32.0 [facility] Comment on above: Result Comment: Canc elled via OM: Order cancelled - Patient discharged Performed By: #### L 500.4100, L100.0500, L500.2500 #### [facility] [address] [place], [address] CREAT,SERUM Normal 0.70-1.20 [facility] Comment on above: Result Comment: Canc elled via OM: Order cancelled - Patient discharged Performed By: #### L 500.4100, L100.0500, L500.2500 #### [facility] [address] [place], [address] eGFR Normal >60 [facility] Comment on above: Result Comment: Canc elled via OM: Order cancelled - Patient discharged Performed By: #### L 500.4100, L100.0500, L500.2500 #### [facility] [address] [place], [address] GAP Normal 5-15 [facility] Comment on above: Result Comment: Canc elled via OM: Order cancelled - Patient discharged Performed By: #### L 500.4100, L100.0500, L500.2500 #### [facility] [address] [place], [address] GLU Normal 70-99 [facility] Comment on above: Result Comment: Canc elled via OM: Order cancelled - Patient discharged Performed By: #### L 500.4100, L100.0500, L500.2500 #### [facility] [address] [place], [address] Potassium Normal 3.3-5.1 [facility] Comment on above: Result Comment: Canc elled via OM: Order cancelled - Patient discharged Performed By: #### L 500.4100, L100.0500, L500.2500 #### [facility] [address] [place], [address] Basic Metabolic Profile (BMP) Normal 133-145 [facility] Comment on above: Result Comment: Canc elled via OM: Order cancelled - Patient discharged Performed By: #### L 500.4100, L100.0500, L500.2500 #### [facility] [address] [place], [address] CBC W/Diff, Automatedon 08-0 2-2024 Absolute Neut Normal 2.0-7.7 [facility] Comment on above: Result Comment: Canc elled via OM: Order cancelled - Patient discharged Performed By: #### L 500.4100, L100.0500, L500.2500 #### [facility] [address] [place], [address] HCT Normal 40-54 [facility] Comment on above: Result Comment: Canc elled via OM: Order cancelled - Patient discharged Performed By: #### L 500.4100, L100.0500, L500.2500 #### [facility] [address] [place], [address] HGB Normal 13.0-16.5 [facility] Comment on above: Result Comment: Canc elled via OM: Order cancelled - Patient discharged Performed By: #### L 500.4100, L100.0500, L500.2500 #### [facility] [address] [place], [address] MCH Normal 27.0-32.0 [facility] Comment on above: Result Comment: Canc elled via OM: Order cancelled - Patient discharged Performed By: #### L 500.4100, L100.0500, L500.2500 #### [facility] [address] [place], [address] MCHC Normal 32-36 [facility] Comment on above: Result Comment: Canc elled via OM: Order cancelled - Patient discharged Performed By: #### L 500.4100, L100.0500, L500.2500 #### [facility] [address] [place], [address] MCV Normal 80-94 [facility] Comment on above: Result Comment: Canc elled via OM: Order cancelled - Patient discharged Performed By: #### L 500.4100, L100.0500, L500.2500 #### [facility] [address] [place], [address] NEUT% Normal 47-70 [facility] Comment on above: Result Comment: Canc elled via OM: Order cancelled - Patient discharged Performed By: #### L 500.4100, L100.0500, L500.2500 #### [facility] [address] [place], [address] PLT Normal 150-450 [facility] Comment on above: Result Comment: Canc elled via OM: Order cancelled - Patient discharged Performed By: #### L 500.4100, L100.0500, L500.2500 #### [facility] [address] [place], [address] RBC Normal 4.6-6.2 [facility] Comment on above: Result Comment: Canc elled via OM: Order cancelled - Patient discharged Performed By: #### L 500.4100, L100.0500, L500.2500 #### [facility] [address] [place], [address] RDW CV Normal 11.6-14.6 [facility] Comment on above: Result Comment: Canc elled via OM: Order cancelled - Patient discharged Performed By: #### L 500.4100, L100.0500, L500.2500 #### [facility] [address] [place], [address] RDW SD Normal 35.1-43.9 [facility] Comment on above: Result Comment: Canc elled via OM: Order cancelled - Patient discharged Performed By: #### L 500.4100, L100.0500, L500.2500 #### [facility] [address] [place], [address] WBC Normal 4.4-11.0 [facility] Comment on above: Result Comment: Canc elled via OM: Order cancelled - Patient discharged Performed By: #### L 500.4100, L100.0500, L500.2500 #### [facility] [address] [place], [address] Basic Metabolic Profile (BMP )on 02-11-2025 BUN Normal 4-19 [facility] Comment on above: Result Comment: Canc elled via OM: Order cancelled - Patient discharged Performed By: #### L 100.0100, L500.2500 #### [facility] [address] [place], [address] BUN/CRE Normal 10-20 [facility] Comment on above: Result Comment: Canc elled via OM: Order cancelled - Patient discharged Performed By: #### L 100.0100, L500.2500 #### [facility] [address] [place], [address] Calcium Normal 7.6-11.0 [facility] Comment on above: Result Comment: Canc elled via OM: Order cancelled - Patient discharged Performed By: #### L 100.0100, L500.2500 #### [facility] [address] [place], [address] CL Normal 98-108 [facility] Comment on above: Result Comment: Canc elled via OM: Order cancelled - Patient discharged Performed By: #### L 100.0100, L500.2500 #### [facility] [address] [place], [address] CO2 Normal 21.0-32.0 [facility] Comment on above: Result Comment: Canc elled via OM: Order cancelled - Patient discharged Performed By: #### L 100.0100, L500.2500 #### [facility] [address] [place], [address] CREAT,SERUM Normal 0.70-1.20 [facility] Comment on above: Result Comment: Canc elled via OM: Order cancelled - Patient discharged Performed By: #### L 100.0100, L500.2500 #### [facility] [address] [place], [address] eGFR Normal >60 [facility] Comment on above: Result Comment: Canc elled via OM: Order cancelled - Patient discharged Performed By: #### L 100.0100, L500.2500 #### [facility] [address] [place], [address] GAP Normal 5-15 [facility] Comment on above: Result Comment: Canc elled via OM: Order cancelled - Patient discharged Performed By: #### L 100.0100, L500.2500 #### [facility] [address] [place], [address] GLU Normal 70-99 [facility] Comment on above: Result Comment: Canc elled via OM: Order cancelled - Patient discharged Performed By: #### L 100.0100, L500.2500 #### [facility] [address] [place], [address] Potassium Normal 3.3-5.1 [facility] Comment on above: Result Comment: Canc elled via OM: Order cancelled - Patient discharged Performed By: #### L 100.0100, L500.2500 #### [facility] [address] [place], [address] Basic Metabolic Profile (BMP) Normal 133-145 [facility] Comment on above: Result Comment: Canc elled via OM: Order cancelled - Patient discharged Performed By: #### L 100.0100, L500.2500 #### [facility] [address] [place], [address] CBC W/Diff, Automatedon 08-0 Absolute Neut Normal 2.0-7.7 [facility] Comment on above: Result Comment: Canc elled via OM: Order cancelled - Patient discharged Performed By: #### L 100.0100, L500.2500 #### [facility] [address] [place], [address] HCT Normal 40-54 [facility] Comment on above: Result Comment: Canc elled via OM: Order cancelled - Patient discharged Performed By: #### L 100.0100, L500.2500 #### [facility] [address] [place], [address] HGB Normal 13.0-16.5 [facility] Comment on above: Result Comment: Canc elled via OM: Order cancelled - Patient discharged Performed By: #### L 100.0100, L500.2500 #### [facility] [address] [place], [address] MCH Normal 27.0-32.0 [facility] Comment on above: Result Comment: Canc elled via OM: Order cancelled - Patient discharged Performed By: #### L 100.0100, L500.2500 #### [facility] [address] [place], [address] MCHC Normal 32-36 [facility] Comment on above: Result Comment: Canc elled via OM: Order cancelled - Patient discharged Performed By: #### L 100.0100, L500.2500 #### [facility] [address] [place], [address] MCV Normal 80-94 [facility] Comment on above: Result Comment: Canc elled via OM: Order cancelled - Patient discharged Performed By: #### L 100.0100, L500.2500 #### [facility] [address] [place], [address] NEUT% Normal 47-70 [facility] Comment on above: Result Comment: Canc elled via OM: Order cancelled - Patient discharged Performed By: #### L 100.0100, L500.2500 #### [facility] [address] [place], [address] PLT Normal 150-450 [facility] Comment on above: Result Comment: Canc elled via OM: Order cancelled - Patient discharged Performed By: #### L 100.0100, L500.2500 #### [facility] [address] [place], [address] RBC Normal 4.6-6.2 [facility] Comment on above: Result Comment: Canc elled via OM: Order cancelled - Patient discharged Performed By: #### L 100.0100, L500.2500 #### [facility] [address] [place], [address] RDW CV Normal 11.6-14.6 [facility] Comment on above: Result Comment: Canc elled via OM: Order cancelled - Patient discharged Performed By: #### L 100.0100, L500.2500 #### [facility] [address] [place], [address] RDW SD Normal 35.1-43.9 [facility] Comment on above: Result Comment: Canc elled via OM: Order cancelled - Patient discharged Performed By: #### L 100.0100, L500.2500 #### [facility] [address] [place], [address] WBC Normal 4.4-11.0 [facility] Comment on above: Result Comment: Canc elled via OM: Order cancelled - Patient discharged Performed By: #### L 100.0100, L500.2500 #### [facility] [address] [place], [address] Absolute lymphocyte countOrd ered By: Isadora Arndt on 02-10-2025 Lymphocytes Auto (Unsp spec) [#/Vol] 0.89 10*3/uL 0.83-4.51 [facility] Absolute neutrophil countOrd ered By: Isadora Arndt on 02-10-2025 Neutrophils (Bld) [#/Vol] 2.8 10*3/uL 2.0-7.7 [facility] Anion gap in Serum or Plasma Ordered By: Isadora Arndt on 02-10-2025 Anion gap [Moles/Vol] 11 mmol/L 5-15 [facility] Automated lymphocyte count a s percentage of total leukocytesOrdered By: Isadora Arndt on 02-10-2025 Lymphocytes/100 WBC Auto (Unsp spec) 20.9 % 19-41 [facility] BUN/creatinine ratioOrdered By: Isadora Arndt on 02-10-2025 Urea nitrogen/Creatinine [Mass ratio] 26.4 mg/mg High 10-20 [facility] Basic Metabolic Profile (BMP )on 02-10-2025 BUN/CRE 26.4 RATIO High - [facility] Comment on above: Performed By: #### L 100.0100, L500.2500 #### [facility] [address] [place], [address] Calcium [Mass/Vol] 8.6 mg/dL Normal 7.6-11.0 [facility] Comment on above: Performed By: #### L 100.0100, L500.2500 #### [facility] [address] [place], [address] Chloride [Moles/Vol] 106 mmol/L Normal 98-108 [facility] Comment on above: Performed By: #### L 100.0100, L500.2500 #### [facility] [address] [place], [address] CO2 [Moles/Vol] 21.5 mmol/L Normal 21.0-32.0 [facility] Comment on above: Performed By: #### L 100.0100, L500.2500 #### [facility] [address] [place], [address] Creatinine [Mass/Vol] 1.18 mg/dL Normal 0.70-1.20 [facility] Comment on above: Performed By: #### L 100.0100, L500.2500 #### [facility] [address] [place], [address] ECRCL 38.71 ml/min Low 50-250 [facility] Comment on above: Performed By: #### L 100.0100, L500.2500 #### [facility] [address] [place], [address] GAP 11 Normal 5-15 [facility] Comment on above: Performed By: #### L 100.0100, L500.2500 #### [facility] [address] [place], [address] GFR/1.73 sq M.predicted among non-blacks MDRD (S/P/Bld) [Vol rate/Area] 62 mL/min/{1.73_m2} Normal >60 [facility] Comment on above: Result Comment: mL/m in/1.73m2 CKD-EPI Creatinine Equation (2020) Performed By: #### L 100.0100, L500.2500 #### [facility] [address] [place], [address] Glucose [Mass/Vol] 99 mg/dL Normal 70-99 [facility] Comment on above: Performed By: #### L 100.0100, L500.2500 #### [facility] [address] [place], [address] Potassium [Moles/Vol] 3.5 mmol/L Normal 3.3-5.1 [facility] Comment on above: Performed By: #### L 100.0100, L500.2500 #### [facility] [address] [place], [address] Sodium [Moles/Vol] 138 mmol/L Normal 133-145 [facility] Comment on above: Performed By: #### L 100.0100, L500.2500 #### [facility] [address] [place], [address] Urea nitrogen [Mass/Vol] 31 mg/dL High 4-19 [facility] Comment on above: Performed By: #### L 100.0100, L500.2500 #### [facility] [address] [place], [address] Basophil percentageOrdered B y: Isadora Arndt on 02-10-2025 Basophils/100 WBC (Bld) 0.5 % 0-1 [facility] CBC W/Diff, Automatedon - Absolute Lymph 0.89 X10 3/uL Normal 0.83-4.51 [facility] Comment on above: Performed By: #### L 100.0100, L500.2500 #### [facility] [address] [place], [address] Absolute Neut 2.8 X10 3/uL Normal 2.0-7.7 [facility] Comment on above: Performed By: #### L 100.0100, L500.2500 #### [facility] [address] [place], [address] Basophils/100 WBC (Bld) 0.5 % Normal 0-1 [facility] Comment on above: Performed By: #### L 100.0100, L500.2500 #### [facility] [address] [place], [address] Eosinophils/100 WBC (Bld) 0.9 % Normal 0-5 [facility] Comment on above: Performed By: #### L 100.0100, L500.2500 #### [facility] [address] [place], [address] Erythrocyte distribution width (RBC) [Ratio] 12.6 % Normal 11.6-14.6 [facility] Comment on above: Performed By: #### L 100.0100, L500.2500 #### [facility] [address] [place], [address] Hematocrit (Bld) [Volume fraction] 29.3 % Low 40-54 [facility] Comment on above: Performed By: #### L 100.0100, L500.2500 #### [facility] [address] [place], [address] Hemoglobin (Bld) [Mass/Vol] 10.2 g/dL Low 13.0-16.5 [facility] Comment on above: Performed By: #### L 100.0100, L500.2500 #### [facility] [address] [place], [address] IG% 0.700 Normal 0.0-0.9 [facility] Comment on above: Result Comment: IG% - Immature Granulocytes (promyelocytes, myelocytes and metamyelocytes) > 1% indicates that a LEFT SHIFT is Present. Performed By: #### L 100.0100, L500.2500 #### [facility] [address] [place], [address] Lymphocytes/100 WBC (Bld) 20.9 % Normal 19-41 [facility] Comment on above: Performed By: #### L 100.0100, L500.2500 #### [facility] [address] [place], [address] MCH (RBC) [Entitic mass] 32.1 pg High 27.0-32.0 [facility] Comment on above: Performed By: #### L 100.0100, L500.2500 #### [facility] [address] [place], [address] MCHC (RBC) [Mass/Vol] 34.8 g/dL Normal 32-36 [facility] Comment on above: Performed By: #### L 100.0100, L500.2500 #### [facility] [address] [place], [address] MCV (RBC) [Entitic vol] 92.1 fL Normal 80-94 [facility] Comment on above: Performed By: #### L 100.0100, L500.2500 #### [facility] [address] [place], [address] Monocytes/100 WBC (Bld) 10.1 % High 0-10 [facility] Comment on above: Performed By: #### L 100.0100, L500.2500 #### [facility] [address] [place], [address] Neutrophils/100 WBC (Bld) 66.9 % Normal 47-70 [facility] Comment on above: Performed By: #### L 100.0100, L500.2500 #### [facility] [address] [place], [address] Nucleated RBC (Bld) [#/Vol] 0 10*3/uL Normal 0-5 [facility] Comment on above: Performed By: #### L 100.0100, L500.2500 #### [facility] [address] [place], [address] Platelet mean volume (Bld) [Entitic vol] 11.6 fL Normal 6.2-12.0 [facility] Comment on above: Performed By: #### L 100.0100, L500.2500 #### [facility] [address] [place], [address] Platelets (Bld) [#/Vol] 107 10*3/uL Low 150-450 [facility] Comment on above: Performed By: #### L 100.0100, L500.2500 #### [facility] [address] [place], [address] RBC (Bld) [#/Vol] 3.18 10*6/uL Low 4.6-6.2 [facility] Comment on above: Performed By: #### L 100.0100, L500.2500 #### [facility] [address] [place], [address] RDW SD 42.1 fl Normal 35.1-43.9 [facility] Comment on above: Performed By: #### L 100.0100, L500.2500 #### [facility] [address] [place], [address] WBC (Bld) [#/Vol] 4.3 10*3/uL Low 4.4-11.0 [facility] Comment on above: Performed By: #### L 100.0100, L500.2500 #### [facility] [address] [place], [address] Carbon dioxide, total [Moles /volume] in Central venous bloodOrdered By: Isadora Arndt on 02-10-2025 CO2 [Moles/Vol] 21.5 mmol/L 21.0-32.0 [facility] Chloride assayOrdered By: Greta Arndt on 02-10-2025 Chloride [Moles/Vol] 106 mmol/L 98-108 [facility] Eosinophil percentageOrdered By: Isadora Arndt on 07-31-2025 Eosinophils/100 WBC (Bld) 0.9 % 0-5 [facility] Erythrocyte distribution wid th ratioOrdered By: Isadorajm Arndt on 02-10-2025 Erythrocyte distribution width (RBC) [Ratio] 12.6 % 11.6-14.6 [facility] Erythrocyte distribution wid th standard deviationOrdered By: [facility] on 02-10-2025 Erythrocyte distribution width (RBC) [Ratio] 42.1 fl 35.1-43.9 [facility] Glomerular filtration rate ( GFR) estimation/1.73 sq m using serum, plasma, or whole bOrdered By: Isadora [facility]-10[facility] GFR/1.73 sq M.predicted among non-blacks MDRD (S/P/Bld) [Vol rate/Area] 62 mL/min/{1.73_m2} >60 [facility] Comment on above: mL/min/1.73m2 CKD-EP I Creatinine Equation (2020) Hematocrit Auto (Bld) [Volum e fraction]Ordered By: [facility] 02-10-2025 Hematocrit (Bld) [Volume fraction] 29.3 % Low 40-54 [facility] Hemoglobin measurementOrdere d By: [facility] 02-10-2025 Hemoglobin (Bld) [Mass/Vol] 10.2 g/dL Low 13.0-16.5 [facility] Immature granulocytes/100 WB C Auto (Bld)Ordered By: Isadorajm Arndt 02-10-2025 Immature granulocytes/100 WBC (Bld) 0.700 % 0.0-0.9 [facility] Comment on above: IG% - Immature Granu locytes (promyelocytes, myelocytes and metamyelocytes) > 1% indicates that a LEFT SHIFT is Present. MCV (mean corpuscular volume ) determinationOrdered By: Isadora [facility] 02-10-2025 MCV (RBC) [Entitic vol] 92.1 fL 80-94 [facility] Mean corpuscular hemoglobin (MCH) determinationOrdered By: [facility] 02-10-2025 MCH (RBC) [Entitic mass] 32.1 pg High 27.0-32.0 [facility] Mean corpuscular hemoglobin concentration (MCHC) determinationOrdered By: Isadora Arndt on 02-10-2025 MCHC (RBC) [Mass/Vol] 34.8 g/dL 32-36 [facility] Mean platelet volume determi nationOrdered By: Isadora Arndt on 02-10-2025 Platelet mean volume (Bld) [Entitic vol] 11.6 fL 6.2-12.0 [facility] Monocyte percentageOrdered B y: Isadora Arndt on 02-10-2025 Monocytes/100 WBC (Bld) 10.1 % High 0-10 [facility] Neutrophil percentageOrdered By: Isadora Arndt on 02-10-2025 Neutrophils/100 WBC (Bld) 66.9 % 47-70 [facility] Nucleated red blood cell per centageOrdered By: Isadora Arndt on 02-10-2025 Nucleated RBC/100 WBC (Bld) [Ratio] 0 % 0-5 [facility] Platelet countOrdered By: Na greta Arndt on 02-10-2025 Platelets (Bld) [#/Vol] 107 10*3/uL Low 150-450 [facility] Potassium measurement (mass/ volume)Ordered By: Isadora Arndt on 02-10-2025 Potassium (Unsp spec) [Mass/Vol] 3.5 mmol/L 3.3-5.1 [facility] RBC Auto (Bld) [#/Vol]Ordere d By: Isadora Arndt on 02-10-2025 RBC (Bld) [#/Vol] 3.18 10*6/uL Low 4.6-6.2 [facility] Serum creatinine measurement (mass/volume)Ordered By: Isadora Arndt 02-10-2025 Creatinine [Mass/Vol] 1.18 mg/dL 0.70-1.20 [facility] Serum glucose measurement (m ass/volume)Ordered By: Isadora Arndt on 02-10-2025 Glucose [Mass/Vol] 99 mg/dL 70-99 [facility] Serum or plasma calcium diane urement (mass/volume)Ordered By: Isadora Arndt 02-10-2025 Calcium [Mass/Vol] 8.6 mg/dL 7.6-11.0 [facility] Serum or plasma urea nitroge n measurement (mass/volume)Ordered By: Isadora Arndt on 02-10-2025 Urea nitrogen [Mass/Vol] 31 mg/dL High 4-19 [facility] Sodium levelOrdered By: Isadorajm Arndt on 02-10-2025 Sodium [Moles/Vol] 138 mmol/L 133-145 [facility] White blood cell (WBC) count Ordered By: Isadorajm Arndt on 02-10-2025 WBC (Bld) [#/Vol] 4.3 10*3/uL Low 4.4-11.0 [facility] Basic Metabolic Profile (BMP )on 02-09-2025 BUN/CRE 28.7 RATIO High 10-20 [facility] Comment on above: Performed By: #### L 500.2500, L100.0500 #### [facility] [address] [place], [address] Calcium [Mass/Vol] 8.4 mg/dL Normal 7.6-11.0 [facility] Comment on above: Performed By: #### L 500.2500, L100.0500 #### [facility] [address] [place], [address] Chloride [Moles/Vol] 107 mmol/L Normal 98-108 [facility] Comment on above: Performed By: #### L 500.2500, L100.0500 #### [facility] [address] [place], [address] CO2 [Moles/Vol] 20.2 mmol/L Low 21.0-32.0 [facility] Comment on above: Performed By: #### L 500.2500, L100.0500 #### [facility] [address] [place], [address] Creatinine [Mass/Vol] 1.08 mg/dL Normal 0.70-1.20 [facility] Comment on above: Performed By: #### L 500.2500, L100.0500 #### [facility] [address] [place], [address] ECRCL 42.29 ml/min Low 50-250 [facility] Comment on above: Performed By: #### L 500.2500, L100.0500 #### [facility] [address] [place], [address] GAP 12 Normal 5-15 [facility] Comment on above: Performed By: #### L 500.2500, L100.0500 #### [facility] [address] [place], [address] GFR/1.73 sq M.predicted among non-blacks MDRD (S/P/Bld) [Vol rate/Area] 69 mL/min/{1.73_m2} Normal >60 [facility] Comment on above: Result Comment: mL/m in/1.73m2 CKD-EPI Creatinine Equation (2020) Performed By: #### L 500.2500, L100.0500 #### [facility] [address] [place], [address] Glucose [Mass/Vol] 88 mg/dL Normal 70-99 [facility] Comment on above: Performed By: #### L 500.2500, L100.0500 #### [facility] [address] [place], [address] Potassium [Moles/Vol] 3.5 mmol/L Normal 3.3-5.1 [facility] Comment on above: Performed By: #### L 500.2500, L100.0500 #### [facility] [address] [place], [address] Sodium [Moles/Vol] 139 mmol/L Normal 133-145 [facility] Comment on above: Performed By: #### L 500.2500, L100.0500 #### [facility] [address] [place], [address] Urea nitrogen [Mass/Vol] 31 mg/dL High 4-19 [facility] Comment on above: Performed By: #### L 500.2500, L100.0500 #### [facility] [address] [place], [address] CBC-Complete Blood Cnt No Di ffon 02-09-2025 Erythrocyte distribution width (RBC) [Ratio] 12.6 % Normal 11.6-14.6 [facility] Comment on above: Performed By: #### L 500.2500, L100.0500 #### [facility] [address] [place], [address] Hematocrit (Bld) [Volume fraction] 30.8 % Low 40-54 [facility] Comment on above: Performed By: #### L 500.2500, L100.0500 #### [facility] [address] [place], [address] Hemoglobin (Bld) [Mass/Vol] 10.6 g/dL Low 13.0-16.5 [facility] Comment on above: Performed By: #### L 500.2500, L100.0500 #### [facility] [address] [place], [address] MCH (RBC) [Entitic mass] 31.8 pg Normal 27.0-32.0 [facility] Comment on above: Performed By: #### L 500.2500, L100.0500 #### [facility] [address] [place], [address] MCHC (RBC) [Mass/Vol] 34.4 g/dL Normal 32-36 [facility] Comment on above: Performed By: #### L 500.2500, L100.0500 #### [facility] [address] [place], [address] MCV (RBC) [Entitic vol] 92.5 fL Normal 80-94 [facility] Comment on above: Performed By: #### L 500.2500, L100.0500 #### [facility] [address] [place], [address] Platelet mean volume (Bld) [Entitic vol] 11.4 fL Normal 6.2-12.0 [facility] Comment on above: Performed By: #### L 500.2500, L100.0500 #### [facility] [address] [place], [address] Platelets (Bld) [#/Vol] 102 10*3/uL Low 150-450 [facility] Comment on above: Performed By: #### L 500.2500, L100.0500 #### [facility] [address] [place], [address] RBC (Bld) [#/Vol] 3.33 10*6/uL Low 4.6-6.2 [facility] Comment on above: Performed By: #### L 500.2500, L100.0500 #### [facility] [address] [place], [address] RDW SD 41.6 fl Normal 35.1-43.9 [facility] Comment on above: Performed By: #### L 500.2500, L100.0500 #### [facility] [address] [place], [address] WBC (Bld) [#/Vol] 3.8 10*3/uL Low 4.4-11.0 [facility] Comment on above: Performed By: #### L 500.2500, L100.0500 #### [facility] [address] [place], [address] Electrocardiogram reportOrde red By: Wolfgang Conde on 02-09-2025 EKG study [facility] [address] [place] [address] 12 Lead EKG 02/08/25 1245 MR#: [id number] Acct: [id number] Name: SOPHIA CORTES Rep #:[id number] : 1940 84 From: Wolfgang Conde MD Attending Dr: Dr. Isadora Arndt MD Status: ADM MARCELA Ordering Dr: Michael Allen DO Date: Location: [facility] Sex: M C Admitted: 02/08/25 Test Reason [...] Abnormal ECG Confirmed by ELTON REZA, WOLFGANG ([id number]), story editor ZANA ROOT ([id number]) on 58:35:44 AM Referred By: Confirmed By: WOLFGANG CONDE MD 02/09/25 0835 Date _ Wolfgang Conde MD CC: Dr. Isadora Arndt MD; Dr. Michael Allen DO; No Primary Care Physician ~ Signed [facility] Work Phone: Testicular with Arterial [place] won 02-09-2025 Testicular with Arterial Flow [facility] [address] [place] [id number] Testicular with Arterial Flow MR#: [id number] Acct: [id number] Name: SOPHIA CORTES Rep #: [id number] : 1940 M 84 From: Aleksandr lazo MD PCP: Care Physician,No Primary Status: ADM MARCELA Study: Testicular with Arterial Flow Date of Exam: Exam# [id number] Ordering Dr: Isadora Arndt MD PROCEDURE: TESTICULAR [...] as described. Small left hydrocele. Reading Location: [id number] CC: Dr. Isadora Arndt MD; No Primary Care Physician Public Relations Representative: Signed Normal [facility] 12 Lead EKGon 02-08-2025 12 Lead EKG [facility] [address] [place] [address] 12 Lead EKG 02/08/25 1245 MR#: [id number] Acct: [id number] Name: SOPHIA CORTES Rep #: [id number] : 1940 84 From: Wolfgang Conde MD Attending Dr: Dr. Isadora Anrdt MD Status: AD M MARCELA Ordering Dr: Michael Allen DO Date: 02/08/25 [place] [facility] [place]: [place] C Admitted: 02/08/25 Test Reason [...] ECG Confirmed by WOLFGANG CONDE MD ([id number]), story editor ZANA ROOT ([id number]) on 02/09/2025 8:35:44 AM Referred By: Confirmed By: WOLFGANG CONDE MD 02/09/25 0835 Date Wolfgang Conde MD CC: Dr. Isadora Arndt MD; Dr. Michael Allen, DO; No Primary Care Physician Signed Normal [facility] Absolute lymphocyte countOrd ered By: Michael Allen on 02-08-2025 Lymphocytes Auto (Unsp spec) [#/Vol] 0.74 10*3/uL Low 0.83-4.51 [facility] Absolute neutrophil countOrd ered By: Michael Allen on 02-08-2025 Neutrophils (Bld) [#/Vol] 4.0 10*3/uL 2.0-7.7 [facility] Anion gap in Serum or Plasma Ordered By: Michael Allen on 02-08-2025 Anion gap [Moles/Vol] 14 mmol/L 5-15 [facility] Automated lymphocyte count a s percentage of total leukocytesOrdered By: Michael Allen on 02-08-2025 Lymphocytes/100 WBC Auto (Unsp spec) 13.6 % Low 19-41 [facility] BUN/creatinine ratioOrdered By: Michael Allen on 02-08-2025 Urea nitrogen/Creatinine [Mass ratio] 23.5 mg/mg High 10-20 [facility] Basophil percentageOrdered B y: Michael Allen on 02-08-2025 Basophils/100 WBC (Bld) 0.2 % 0-1 [facility] Bilirubin Test strip Ql (U)O rdered By: Michael Allen on 02-08-2025 Bilirubin Ql (U) Negative Negative [facility] Bilirubin, totalOrdered By: Michael Allen on 02-08-2025 Bilirubin [Mass/Vol] 1.16 mg/dL 0.00-1.30 [facility] Brain/Head without Contrasto n 02-08-2025 Brain/Head without Contrast [facility] [address] [place] [address] Brain/Head without Contrast MR#: [id number] Acct: [id number] Name: CAITYJOSESOPHIA D Rep #: [id number] : 1940 M 84 From: Emilio Sullivan MD PCP: Care Physician,No Primary Status: REG ER Study: Brain/Head without Contrast Date of Exam: 01/12 04/07 Exam# [id number] Ordering Dr: Michael Allen DO EXAM: NONCONTRAST [...] Michael Allen DO; No Primary Care Physician Public Relations Representative: Signed Normal [facility] CBC W/Diff, Automatedon 07-2 Absolute Lymph 0.74 X10 3/uL Low 0.83-4.51 [facility] Comment on above: Performed By: #### L 500.2500, L100.0500 #### [facility] [address] [place], [address] Absolute Neut 4.0 X10 3/uL Normal 2.0-7.7 [facility] Comment on above: Performed By: #### L 500.2500, L100.0500 #### [facility] [address] [place], [address] Basophils/100 WBC (Bld) 0.2 % Normal 0-1 [facility] Comment on above: Performed By: #### L 500.2500, L100.0500 #### [facility] [address] [place], [address] Eosinophils/100 WBC (Bld) 0.7 % Normal 0-5 [facility] Comment on above: Performed By: #### L 500.2500, L100.0500 #### [facility] [address] [place], [address] Erythrocyte distribution width (RBC) [Ratio] 12.8 % Normal 11.6-14.6 [facility] Comment on above: Performed By: #### L 500.2500, L100.0500 #### [facility] [address] [place], [address] Hematocrit (Bld) [Volume fraction] 35.5 % Low 40-54 [facility] Comment on above: Performed By: #### L 500.2500, L100.0500 #### [facility] [address] [place], [address] Hemoglobin (Bld) [Mass/Vol] 12.1 g/dL Low 13.0-16.5 [facility] Comment on above: Performed By: #### L 500.2500, L100.0500 #### [facility] [address] [place], [address] IG% 0.400 Normal 0.0-0.9 [facility] Comment on above: Result Comment: IG% - Immature Granulocytes (promyelocytes, myelocytes and metamyelocytes) > 1% indicates that a LEFT SHIFT is Present. Performed By: #### L 500.2500, L100.0500 #### [facility] [address] [place], [address] Lymphocytes/100 WBC (Bld) 13.6 % Low 19-41 [facility] Comment on above: Performed By: #### L 500.2500, L100.0500 #### [facility] [address] [place], [address] MCH (RBC) [Entitic mass] 31.8 pg Normal 27.0-32.0 [facility] Comment on above: Performed By: #### L 500.2500, L100.0500 #### [facility] [address] [place], [address] MCHC (RBC) [Mass/Vol] 34.1 g/dL Normal 32-36 [facility] Comment on above: Performed By: #### L 500.2500, L100.0500 #### [facility] [address] [place], [address] MCV (RBC) [Entitic vol] 93.2 fL Normal 80-94 [facility] Comment on above: Performed By: #### L 500.2500, L100.0500 #### [facility] [address] [place], [address] Monocytes/100 WBC (Bld) 10.7 % High 0-10 [facility] Comment on above: Performed By: #### L 500.2500, L100.0500 #### [facility] [address] [place], [address] Neutrophils/100 WBC (Bld) 74.4 % High 47-70 [facility] Comment on above: Performed By: #### L 500.2500, L100.0500 #### [facility] [address] [place], [address] Nucleated RBC (Bld) [#/Vol] 0 10*3/uL Normal 0-5 [facility] Comment on above: Performed By: #### L 500.2500, L100.0500 #### [facility] [address] [place], [address] Platelet mean volume (Bld) [Entitic vol] 11.4 fL Normal 6.2-12.0 [facility] Comment on above: Performed By: #### L 500.2500, L100.0500 #### [facility] [address] [place], [address] Platelets (Bld) [#/Vol] 121 10*3/uL Low 150-450 [facility] Comment on above: Performed By: #### L 500.2500, L100.0500 #### [facility] [address] [place], [address] RBC (Bld) [#/Vol] 3.81 10*6/uL Low 4.6-6.2 [facility] Comment on above: Performed By: #### L 500.2500, L100.0500 #### [facility] [address] [place], [address] RDW SD 43.7 fl Normal 35.1-43.9 [facility] Comment on above: Performed By: #### L 500.2500, L100.0500 #### [facility] [address] [place], [address] WBC (Bld) [#/Vol] 5.4 10*3/uL Normal 4.4-11.0 [facility] Comment on above: Performed By: #### L 500.2500, L100.0500 #### [facility] [address] [place], [address] Carbon dioxide, total [Moles /volume] in Central venous bloodOrdered By: Michael Allen on 02-08-2025 CO2 [Moles/Vol] 21.7 mmol/L 21.0-32.0 [facility] Chest 1 View (Portable)on Chest 1 View (Portable) [facility] Imaging Services [address] [place] [address] Chest 1 View (Portable) MR#: [id number] Acct: [id number] Name: SOPHIA CORTES Rep #: [id number] : 1940 M 84 From: Tomi Lindsay MD PCP: Care Physician,No Primary Status: REG ER Study: Chest 1 View (Portable) Date of Exam: 02/08/25 Exam# [id number] Ordering Dr: Michael Allen DO EXAM: XR [...] IMPRESSION: No acute cardiopulmonary process. Reading [facility] CC: Dr. Michael Allen DO; No Primary Care Physician Public Relations Representative: Signed Normal [facility] Chloride assayOrdered By: Briana Allen on 02-08-2025 Chloride [Moles/Vol] 102 mmol/L 98-108 [facility] Comprehensive Metabolic Prof ilon 02-08-2025 Albumin [Mass/Vol] 3.9 g/dL Normal 3.4-4.8 [facility] Comment on above: Performed By: #### L 500.2500, L100.0500 #### [facility] [address] [place], [address] Albumin/Globulin [Mass ratio] 1.4 {ratio} Normal 0.9-2.4 [facility] Comment on above: Performed By: #### L 500.2500, L100.0500 #### [facility] [address] [place], [address] ALK PHOS 91 U/L Normal 40-129 [facility] Comment on above: Performed By: #### L 500.2500, L100.0500 #### [facility] [address] [place], [address] ALT [Catalytic activity/Vol] 9 U/L Normal <=46 [facility] Comment on above: Performed By: #### L 500.2500, L100.0500 #### [facility] [address] [place], [address] AST [Catalytic activity/Vol] 19 U/L Normal <=37 [facility] Comment on above: Performed By: #### L 500.2500, L100.0500 #### [facility] [address] [place], [address] Bilirubin [Mass/Vol] 1.16 mg/dL Normal 0.00-1.30 [facility] Comment on above: Performed By: #### L 500.2500, L100.0500 #### [facility] [address] [place], [address] BUN/CRE 23.5 RATIO High 10-20 [facility] [facility] Comment on above: Performed By: #### L 500.2500, L100.0500 #### [facility] [address] [place], [address] Calcium [Mass/Vol] 9.2 mg/dL Normal 7.6-11.0 [facility] Comment on above: Performed By: #### L 500.2500, L100.0500 #### [facility] [address] [place], [address] Chloride [Moles/Vol] 102 mmol/L Normal 98-108 [facility] Comment on above: Performed By: #### L 500.2500, L100.0500 #### [facility] [address] [place], [address] CO2 [Moles/Vol] 21.7 mmol/L Normal 21.0-32.0 [facility] Comment on above: Performed By: #### L 500.2500, L100.0500 #### [facility] [address] [place], [address] Creatinine [Mass/Vol] 1.64 mg/dL High 0.70-1.20 [facility] Comment on above: Performed By: #### L 500.2500, L100.0500 #### [facility] [address] [place], [address] ECRCL 27.90 ml/min Low 50-250 [facility] Comment on above: Performed By: #### L 500.2500, L100.0500 #### [facility] [address] [place], [address] GAP 14 Normal 5-15 [facility] Comment on above: Performed By: #### L 500.2500, L100.0500 #### [facility] [address] [place], [address] GFR/1.73 sq M.predicted among non-blacks MDRD (S/P/Bld) [Vol rate/Area] 42 mL/min/{1.73_m2} Low >60 [facility] Comment on above: Result Comment: mL/m in/1.73m2 CKD-EPI Creatinine Equation (2020) Performed By: #### L 500.2500, L100.0500 #### [facility] [address] [place], [address] Globulin (S) [Mass/Vol] 2.8 g/dL Normal 2.2-4.2 [facility] Comment on above: Performed By: #### L 500.2500, L100.0500 #### [facility] [address] [place], [address] Glucose [Mass/Vol] 132 mg/dL High 70-99 [facility] Comment on above: Performed By: #### L 500.2500, L100.0500 #### [facility] [address] [place], [address] Potassium [Moles/Vol] 3.7 mmol/L Normal 3.3-5.1 [facility] Comment on above: Performed By: #### L 500.2500, L100.0500 #### [facility] [address] [place], [address] Sodium [Moles/Vol] 137 mmol/L Normal 133-145 [facility] Comment on above: Performed By: #### L 500.2500, L100.0500 #### [facility] [address] [place], [address] T PROT 6.7 g/dL Normal 5.9-8.4 [facility] Comment on above: Performed By: #### L 500.2500, L100.0500 #### [facility] [address] [place], [address] Urea nitrogen [Mass/Vol] 39 mg/dL High 4-19 [facility] Comment on above: Performed By: #### L 500.2500, L100.0500 #### [facility] [address] [place], [address] Emergency Department Summary on 02-08-2025 Emergency Department Summary [facility] Medical Records Department [address] [place] [address] Emergency Department Summary 02/08/25 MR#: [id number] Acct: [id number] Name: SOPHIA CORTES Rep #: [id number] : 1940 84 From: Michael Allen DO PCP: Care Physician,No Primary Status:ADM MARCELA Location: [address] History of Present Illness Chief Complaint: General Illness Detail of Chief Complaint: Failure to thrive and needing correction placement Informant: patient and family Narrative Narrative: Patient presents to the emergency department with his sister. He apparently is not doing well at home and lives alone. She feels he needs correction placement. Patient recently admitted to a psychiatric facility for suicidal ideation on January 23. Patient has history of some dementia. Sister has medical power of patent prosecution attorney for him. He is not eating and drinking normally. He is answering some questions but not really having conversations. Sister does not feel he can care for himself. He developed a slight cough a few days ago. [facility] Medical History (Updated 02/08/25 @ 13:[address] 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 Normal [facility] Eosinophil percentageOrdered By: Michael Allen on 02-08-2025 Eosinophils/100 WBC (Bld) 0.7 % 0-5 [facility] Erythrocyte distribution wid th ratioOrdered By: Michael Allen on 02-08-2025 Erythrocyte distribution width (RBC) [Ratio] 12.8 % 11.6-14.6 [facility] Erythrocyte distribution wid th standard deviationOrdered By: Michael Allen on 02-08-2025 Erythrocyte distribution width (RBC) [Ratio] 43.7 fl 35.1-43.9 [facility] Glomerular filtration rate ( GFR) estimation/1.73 sq m using serum, plasma, or whole bOrdered By: Michael Allen on 02-08-2025 GFR/1.73 sq M.predicted among non-blacks MDRD (S/P/Bld) [Vol rate/Area] 42 mL/min/{1.73_m2} Low >60 [facility] Comment on above: mL/min/1.73m2 CKD-EP I Creatinine Equation (2020) H AND P Exam - [place] 02-08-2025 H&P Exam - Hospitalist [facility] Medical Records Department [address] [place] [address] H P Exam - Hospitalist 02/08/25 1345 MR#: [id number] Acct: [id number] Name: SOPHIA CORTES Rep #: [id number] : 1940 84 From: Ajith Zimmer DO PCP: Care Physician,No Primary Status:ADM MARCELA Location: [place] [address] HPI - General General Date of Admission: 02/08/25 Date of Service: 02/08/25 Chief Complaint: Failure to thrive HPI Narrative SOPHIA CORTES, is a 84 M who presented to [facility] ED on 02/08/2025 with adult failure to thrive. Patient lives at home alone. He was recently seen in the ED here on 01/23 for suicidal ideation and was admitted to a psychiatric facility for this. Has history of dementia and sister is medical power of patent prosecution attorney. Medical history otherwise significant for CAD [...] currently. Will be admitted for further management. 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 Normal [facility] Hematocrit Auto (Bld) [Volum e fraction]Ordered By: Michael Allen on 02-08-2025 Hematocrit (Bld) [Volume fraction] 35.5 % Low 40-54 [facility] Hemoglobin measurementOrdere d By: Michael Allen on 02-08-2025 Hemoglobin (Bld) [Mass/Vol] 12.1 g/dL Low 13.0-16.5 [facility] Immature granulocytes/100 WB C Auto (Bld)Ordered By: Michael Allen on 02-08-2025 Immature granulocytes/100 WBC (Bld) 0.400 % 0.0-0.9 [facility] Comment on above: IG% - Immature Granu locytes (promyelocytes, myelocytes and metamyelocytes) > 1% indicates that a LEFT SHIFT is Present. Influenza virus A and B and SARS-CoV-2 (COVID-19) and Respiratory syncytial virus RNAOrdered By: Michael Allen on 02-08-2025 SARS-CoV-2 (COVID-19) RNA JEAN+probe Ql (Unsp spec) [facility] Ketones Test strip Ql (U)Ord ered By: Michael Allen on 02-08-2025 Ketones Ql (U) 5 mg/dl High Negative [facility] - Chemistry and C hemistry - challengeOrdered By: Michael Allen on 02-08-2025 AST [Catalytic activity/Vol] 19 U/L <38 [facility] M100.678on 02-08-2025 M100.678 SARS-CoV-2 (COVID 19) Negative INFLUENZA A Negative INFLUENZA B Negative RSV PCR Negative Normal [facility] Comment on above: Performed By: #### L 500.2500, L100.0500 #### [facility] [place], [address] MCV (mean corpuscular volume ) determinationOrdered By: Michael Allen on 02-08-2025 MCV (RBC) [Entitic vol] 93.2 fL 80-94 [facility] Mean corpuscular hemoglobin (MCH) determinationOrdered By: Michael Allen on 02-08-2025 MCH (RBC) [Entitic mass] 31.8 pg 27.0-32.0 [facility] Mean corpuscular hemoglobin concentration (MCHC) determinationOrdered By: Michael Allen on 02-08-2025 MCHC (RBC) [Mass/Vol] 34.1 g/dL 32-36 [facility] Mean platelet volume determi nationOrdered By: Michael Allen on 02-08-2025 Platelet mean volume (Bld) [Entitic vol] 11.4 fL 6.2-12.0 [facility] Microscopic analysis of urin e for red blood cells (RBC)Ordered By: Michael Allen on 02-08-2025 Microscopic analysis of urine for red blood cells (RBC) 0 SEEN /hpf 0-5 [facility] Monocyte percentageOrdered B y: Michael Allen on 02-08-2025 Monocytes/100 WBC (Bld) 10.7 % High 0-10 [facility] Mucus LM Ql (Urine sed)Order ed By: Michael Allen on 02-08-2025 Mucus Ql (Urine sed) 0 SEEN /hpf [facility] Neutrophil percentageOrdered By: Michael Allen on 02-08-2025 Neutrophils/100 WBC (Bld) 74.4 % High 47-70 [facility] Nitrite Test strip Ql (U)Ord ered By: Michael Allen on 02-08-2025 Nitrite Ql (U) Negative Negative [facility] Nucleated red blood cell per centageOrdered By: Michael Allen on 02-08-2025 Nucleated RBC/100 WBC (Bld) [Ratio] 0 % 0-5 [facility] Platelet countOrdered By: Briana shelly Alejandro on 02-08-2025 Platelets (Bld) [#/Vol] 121 10*3/uL Low 150-450 [facility] Potassium measurement (mass/ volume)Ordered By: Michael Allen on 02-08-2025 Potassium (Unsp spec) [Mass/Vol] 3.7 mmol/L 3.3-5.1 [facility] Protein Test strip Ql (U)Ord ered By: Michael Allen on 02-08-2025 Protein Ql (U) 30 mg/dl High Negative [facility] RBC Auto (Bld) [#/Vol]Ordere d By: Michael Allen on 02-08-2025 RBC (Bld) [#/Vol] 3.81 10*6/uL Low 4.6-6.2 [facility] Serum creatinine measurement (mass/volume)Ordered By: Michael Allen on 02-08-2025 Creatinine [Mass/Vol] 1.64 mg/dL High 0.70-1.20 [facility] Serum globulin measurementOr dered By: Michael Allen on 02-08-2025 Globulin (S) [Mass/Vol] 2.8 g/dL 2.2-4.2 [facility] Serum glucose measurement (m ass/volume)Ordered By: Michael Allen on 02-08-2025 Glucose [Mass/Vol] 132 mg/dL High 70-99 [facility] Serum or plasma alanine rutledge otransferase (ALT) measurementOrdered By: Michael Allen on 02-08-2025 ALT [Catalytic activity/Vol] 9 U/L <47 [facility] Serum or plasma albumin diane urement (mass/volume)Ordered By: Michael Allen on 02-08-2025 Albumin [Mass/Vol] 3.9 g/dL 3.4-4.8 [facility] Serum or plasma albumin/glob ulin mass ratioOrdered By: Michael Allen on 02-08-2025 Albumin/Globulin [Mass ratio] 1.4 {ratio} 0.9-2.4 [facility] Serum or plasma alkaline albin sphatase measurementOrdered By: Michael Braggkar on 02-08-2025 ALP [Catalytic activity/Vol] 91 U/L 40-129 [facility] Serum or plasma calcium diane urement (mass/volume)Ordered By: Remus Ungkar on 02-08-2025 Calcium [Mass/Vol] 9.2 mg/dL 7.6-11.0 [facility] Serum or plasma urea nitroge n measurement (mass/volume)Ordered By: Remus Ungkar on 02-08-2025 Urea nitrogen [Mass/Vol] 39 mg/dL High 4-19 [facility] Sodium levelOrdered By: Sheilau s Ungkar on 02-08-2025 Sodium [Moles/Vol] 137 mmol/L 133-145 [facility] Squamous epithelial cells de tection in urine sediment by light microscopyOrdered By: Michael Braggkar on 02-08-2025 Epithelial cells.squamous LM Ql (Urine sed) 0-5 SEEN /hpf 0-5 [facility] Total proteinOrdered By: Rem us Mahsakar on 02-08-2025 Protein [Mass/Vol] 6.7 g/dL 5.9-8.4 [facility] Urinalysis, Completeon 02-08 EPI,SQUAMOUS 0-5 SEEN Normal 0-5 [facility] Comment on above: Order Comment: 110.1 Performed By: #### L 500.2500, L100.0500 #### [facility] [address] [place], [address] BACTERIA 0 SEEN Normal None Seen [facility] Comment on above: Order Comment: 110.1 Performed By: #### L 500.2500, L100.0500 #### [facility] [address] [place], [address] Mucus Ql (Urine sed) 0 SEEN Normal [facility] Comment on above: Order Comment: 110.1 Performed By: #### L 500.2500, L100.0500 #### [facility] [address] [place], [address] RBC 0 SEEN Normal 0-5 [facility] Comment on above: Order Comment: 110.1 Performed By: #### L 500.2500, L100.0500 #### [facility] [address] [place], [place], [address] WBC 0 SEEN Normal 0-5 [facility] Comment on above: Order Comment: 110.1 Performed By: #### L 500.2500, L100.0500 #### [facility] [address] [place], [place], [id number] Urine clarityOrdered By: Sheila us Alejandro on 02-08-2025 Clarity (U) Clear Clear [facility] Urine color determinationOrd ered By: Michael Allen on 02-08-2025 Color (U) Yellow Yellow [facility] Urine glucose detectionOrder ed By: Michael Allen on 02-08-2025 Glucose Ql (U) Normal mg/dl Normal [facility] Urine leukocyte esterase det ection by dipstickOrdered By: Michael Allen on 02-08-2025 Leukocyte esterase Test strip Ql (U) Negative Negative [facility] Urine pHOrdered By: Michael Un gur on 02-08-2025 pH (U) 5.0 [pH] 5.0 - 8.0 [facility] Urine sediment bacteria coun t by microscopy (number/high power field)Ordered By: Michael Allen on 02-08-2025 Bacteria LM.HPF (Urine sed) [#/Area] 0 /[HPF] None Seen [facility] Urine specific gravity measu rementOrdered By: Remus Allen on 02-08-2025 Specific gravity (U) [Rel density] 1.025 1.002-1.030 [facility] Urine urobilinogen measureme ntOrdered By: Remus Alejandro on 02-08-2025 Urobilinogen Ql (U) 1 mg/dl High Normal [facility] White blood cell (WBC) count Ordered By: Remus Alejandro on 02-08-2025 WBC (Bld) [#/Vol] 5.4 10*3/uL 4.4-11.0 [facility] White blood cell countOrdere d By: Remus Ungur on 02-08-2025 White blood cell count 0 SEEN /hpf 0-5 [facility] Absolute lymphocyte countOrd ered By: Henry [place] on 01-23-2025 Lymphocytes Auto (Unsp spec) [#/Vol] 1.32 10*3/uL 0.83-4.51 [facility] Absolute neutrophil countOrd ered By: Henry [place] on 01-23-2025 Neutrophils (Bld) [#/Vol] 2.5 10*3/uL 2.0-7.7 [facility] Alcohol, Blood (Medical)-Ser umon 01-23-2025 SERUM ETOH < 10.1 Normal <=10.0 [facility] Comment on above: Result Comment: This test is for medical purposes only. The legal definition of intoxication varies according to local law. Performed By: #### L 500.2500, L100.0500 #### [facility] [address] [place], [place], [id number] Amphetamine detection with 1 000 ng/mL as cutoffOrdered By: Henry [place] on 01-23-2025 Amphetamines Screen method >1000 ng/mL Ql (U) Negative < 200 ng/mL [facility] Anion gap in Serum or Plasma Ordered By: Henry [place] on 01-23-2025 Anion gap [Moles/Vol] 13 mmol/L 5-15 [facility] Automated lymphocyte count a s percentage of total leukocytesOrdered By: Henry [place] on 01-23-2025 Lymphocytes/100 WBC Auto (Unsp spec) 31.2 % 19- [facility] BUN/creatinine ratioOrdered By: Henry [place] on 01-23-2025 Urea nitrogen/Creatinine [Mass ratio] 17.6 mg/mg - [facility] Basic Metabolic Profile (BMP )on 01-23-2025 BUN/CRE 17.6 RATIO Normal - [facility] Comment on above: Performed By: #### L 500.4100, L100.0500, L500.2500 #### [facility] [address] [place], [address] Calcium [Mass/Vol] 8.9 mg/dL Normal 7.6-11.0 [facility] Comment on above: Performed By: #### L 500.4100, L100.0500, L500.2500 #### [facility] [address] [place], [address] Chloride [Moles/Vol] 103 mmol/L Normal 98-108 [facility] Comment on above: Performed By: #### L 500.4100, L100.0500, L500.2500 #### [facility] [address] [place], [address] CO2 [Moles/Vol] 19.9 mmol/L Low 21.0-32.0 [facility] Comment on above: Performed By: #### L 500.4100, L100.0500, L500.2500 #### [facility] [address] [place], [address] Creatinine [Mass/Vol] 1.53 mg/dL High 0.70-1.20 [facility] Comment on above: Performed By: #### L 500.4100, L100.0500, L500.2500 #### [facility] [address] [place], [address] ECRCL 28.48 ml/min Low 50-250 [facility] Comment on above: Performed By: #### L 500.4100, L100.0500, L500.2500 #### [facility] [address] [place], [address] GAP 13 Normal 5-15 [facility] Comment on above: Performed By: #### L 500.4100, L100.0500, L500.2500 #### [facility] [address] [place], [address] GFR/1.73 sq M.predicted among non-blacks MDRD (S/P/Bld) [Vol rate/Area] 45 mL/min/{1.73_m2} Low >60 [facility] Comment on above: Result Comment: mL/m in/1.73m2 CKD-EPI Creatinine Equation (2020) Performed By: #### L 500.4100, L100.0500, L500.2500 #### [facility] [address] [place], [address] Glucose [Mass/Vol] 130 mg/dL High 70-99 [facility] Comment on above: Performed By: #### L 500.4100, L100.0500, L500.2500 #### [facility] [address] [place], [address] Potassium [Moles/Vol] 3.9 mmol/L Normal 3.3-5.1 [facility] Comment on above: Performed By: #### L 500.4100, L100.0500, L500.2500 #### [facility] [address] [place], [address] Sodium [Moles/Vol] 136 mmol/L Normal 133-145 [facility] Comment on above: Performed By: #### L 500.4100, L100.0500, L500.2500 #### [facility] [address] [place], [address] Urea nitrogen [Mass/Vol] 27 mg/dL High 4-19 [facility] Comment on above: Performed By: #### L 500.4100, L100.0500, L500.2500 #### [facility] [address] [place], [address] Basophil percentageOrdered B y: Henry [place] on 01-23-2025 Basophils/100 WBC (Bld) 0.2 % 0-1 [facility] Bilirubin Test strip Ql (U)O rdered By: Henry [place] on 07-13-2025 Bilirubin Ql (U) Negative Negative [facility] Brain/Head without Contrasto n 01-23-2025 Brain/Head without Contrast [facility] [address] [place], [place] [address] Brain/Head without Contrast MR#: [id number] Acct: [id number] Name: SOPHIA CORTES Rep #: [id number] : 1940 M 84 From: Brian Alvarez MD PCP: Care Physician,No Primary Status: REG ER Study: Brain/Head without Contrast Date of Exam: 01/11 10/05 Exam# [id number] Ordering Dr: Moises [place] DO PROCEDURE: BRAIN/HEAD [...] Contrast IMPRESSION: NO ACUTE FINDINGS Reading Location: [place] [address] CC: Dr. Henry [place] DO; No Primary Care Physician Public Relations Representative: Signed Normal [facility] CBC W/Diff, Automatedon - Absolute Lymph 1.32 X10 3/uL Normal 0.83-4.51 [facility] Comment on above: Performed By: #### L 500.2500, L100.0500 #### [facility] [address] [place], [place], [id number] Absolute Neut 2.5 X10 3/uL Normal 2.0-7.7 [facility] Comment on above: Performed By: #### L 500.2500, L100.0500 #### [facility] [address] [place], [address] Basophils/100 WBC (Bld) 0.2 % Normal 0-1 [facility] Comment on above: Performed By: #### L 500.2500, L100.0500 #### [facility] [address] [place], [address] Eosinophils/100 WBC (Bld) 1.7 % Normal 0-5 [facility] Comment on above: Performed By: #### L 500.2500, L100.0500 #### [facility] [address] [place], [address] Erythrocyte distribution width (RBC) [Ratio] 12.2 % Normal 11.6-14.6 [facility] Comment on above: Performed By: #### L 500.2500, L100.0500 #### [facility] [address] [place], [address] Hematocrit (Bld) [Volume fraction] 34.1 % Low 40-54 [facility] Comment on above: Performed By: #### L 500.2500, L100.0500 #### [facility] [address] [place], [address] Hemoglobin (Bld) [Mass/Vol] 11.8 g/dL Low 13.0-16.5 [facility] Comment on above: Performed By: #### L 500.2500, L100.0500 #### [facility] [address] [place], [address] IG% 0.200 Normal 0.0-0.9 [facility] Comment on above: Result Comment: IG% - Immature Granulocytes (promyelocytes, myelocytes and metamyelocytes) > 1% indicates that a LEFT SHIFT is Present. Performed By: #### L 500.2500, L100.0500 #### [facility] [address] [place], [address] Lymphocytes/100 WBC (Bld) 31.2 % Normal 19-41 [facility] Comment on above: Performed By: #### L 500.2500, L100.0500 #### [facility] [address] [place], [address] MCH (RBC) [Entitic mass] 31.7 pg Normal 27.0-32.0 [facility] Comment on above: Performed By: #### L 500.2500, L100.0500 #### [facility] [address] [place], [address] MCHC (RBC) [Mass/Vol] 34.6 g/dL Normal 32-36 [facility] Comment on above: Performed By: #### L 500.2500, L100.0500 #### [facility] [address] [place], [address] MCV (RBC) [Entitic vol] 91.7 fL Normal 80-94 [facility] Comment on above: Performed By: #### L 500.2500, L100.0500 #### [facility] [address] [place], [address] Monocytes/100 WBC (Bld) 8.7 % Normal 0-10 [facility] Comment on above: Performed By: #### L 500.2500, L100.0500 #### [facility] [address] [place], [address] Neutrophils/100 WBC (Bld) 58.0 % Normal 47-70 [facility] Comment on above: Performed By: #### L 500.2500, L100.0500 #### [facility] [address] [place], [address] Nucleated RBC (Bld) [#/Vol] 0 10*3/uL Normal 0-5 [facility] Comment on above: Performed By: #### L 500.2500, L100.0500 #### [facility] [address] [place], [address] Platelet mean volume (Bld) [Entitic vol] 12.1 fL High 6.2-12.0 [facility] Comment on above: Performed By: #### L 500.2500, L100.0500 #### [facility] [address] [place], [address] Platelets (Bld) [#/Vol] 136 10*3/uL Low 150-450 [facility] Comment on above: Performed By: #### L 500.2500, L100.0500 #### [facility] [address] [place], [address] RBC (Bld) [#/Vol] 3.72 10*6/uL Low 4.6-6.2 [facility] Comment on above: Performed By: #### L 500.2500, L100.0500 #### [facility] [address] [place], [address] RDW SD 41.1 fl Normal 35.1-43.9 [facility] Comment on above: Performed By: #### L 500.2500, L100.0500 #### [facility] [address] [place], [address] WBC (Bld) [#/Vol] 4.2 10*3/uL Low 4.4-11.0 [facility] Comment on above: Performed By: #### L 500.2500, L100.0500 #### [facility] [address] [place], [address] Carbon dioxide, total [Moles /volume] in Central venous bloodOrdered By: Henry [place] on 01-23-2025 CO2 [Moles/Vol] 19.9 mmol/L Low 21.0-32.0 [facility] Chloride assayOrdered By: Dinh [place] on 01-23-2025 Chloride [Moles/Vol] 103 mmol/L 98-108 [facility] Emergency Department Summary on 01-23-2025 Emergency Department Summary [facility] Medical Records Department [address] [place] [address] Emergency Department Summary 01/23/25 MR#: [id number] Acct: [id number] Name: SOPHIA CORTES Rep #: [id number] : 1940 84 From: Henry [place] DO PCP: Care Physician,No Primary Status:REG ER Location: ED ADDENDUM by Dr. Henry [place], on 01/23/25 at 0806 UA negative for UTI. 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 Normal [facility] Eosinophil percentageOrdered By: Henryvinayak [place] on 01-23-2025 Eosinophils/100 WBC (Bld) 1.7 % 0-5 [facility] Erythrocyte distribution wid th ratioOrdered By: [facility] on 01-23-2025 Erythrocyte distribution width (RBC) [Ratio] 12.2 % 11.6-14.6 [facility] Erythrocyte distribution wid th standard deviationOrdered By: [facility] Fig[facility]eroa on 01-23-2025 Erythrocyte distribution width (RBC) [Ratio] 41.1 fl 35.1-43.9 [facility] Glomerular filtration rate ( GFR) estimation/1.73 sq m using serum, plasma, or whole bOrdered By: Henryvinayak [place] on 01-23-2025 GFR/1.73 sq M.predicted among non-blacks MDRD (S/P/Bld) [Vol rate/Area] 45 mL/min/{1.73_m2} Low >60 [facility] Comment on above: mL/min/1.73m2 CKD-EP I Creatinine Equation (2020) Hematocrit Auto (Bld) [Volum e fraction]Ordered By: Henry Chadd on 01-23-2025 Hematocrit (Bld) [Volume fraction] 34.1 % Low 40-54 [facility] Hemoglobin measurementOrdere d By: Henry [place] on 01-23-2025 Hemoglobin (Bld) [Mass/Vol] 11.8 g/dL Low 13.0-16.5 [facility] Immature granulocytes/100 WB C Auto (Bld)Ordered By: Henry [place] on 01-23-2025 Immature granulocytes/100 WBC (Bld) 0.200 % 0.0-0.9 [facility] Comment on above: IG% - Immature Granu locytes (promyelocytes, myelocytes and metamyelocytes) > 1% indicates that a LEFT SHIFT is Present. Ketones Test strip Ql (U)Ord ered By: Henry [place] on 01-23-2025 Ketones Ql (U) Negative Negative [facility] MCV (mean corpuscular volume ) determinationOrdered By: Henry [place] on 01-23-2025 MCV (RBC) [Entitic vol] 91.7 fL 80-94 [facility] Mean corpuscular hemoglobin (MCH) determinationOrdered By: [facility] RehabilitationAlexia on 01-23-2025 MCH (RBC) [Entitic mass] 31.7 pg 27.0-32.0 [facility] Mean corpuscular hemoglobin concentration (MCHC) determinationOrdered By: Henryvinayak [place] on 01-23-2025 MCHC (RBC) [Mass/Vol] 34.6 g/dL 32-36 [facility] Mean platelet volume determi nationOrdered By: Henry [place] on 01-23-2025 Platelet mean volume (Bld) [Entitic vol] 12.1 fL High 6.2-12.0 [facility] Microscopic analysis of urin e for red blood cells (RBC)Ordered By: Henry [place] on 01-23-2025 Microscopic analysis of urine for red blood cells (RBC) 0-5 SEEN /hpf 0-5 [facility] Monocyte percentageOrdered B y: Henry [place] on 01-23-2025 Monocytes/100 WBC (Bld) 8.7 % 0-10 [facility] Mucus LM Ql (Urine sed)Order ed By: Henry [place] on 01-23-2025 Mucus Ql (Urine sed) 0 SEEN /hpf [facility] Neutrophil percentageOrdered By: Henry [place] on 01-23-2025 Neutrophils/100 WBC (Bld) 58.0 % 47-70 [facility] Nitrite Test strip Ql (U)Ord ered By: Henry [place] on 01-23-2025 Nitrite Ql (U) Negative Negative [facility] No Panel InformationOrdered By: Henry [place] on 01-23-2025 Urine Buprenorphine Qualitative Negative < 200 ng/mL [facility] Urine Oxycodone Screen Negative < 100 ng/mL [facility] Nucleated red blood cell per centageOrdered By: Henry [place] on 01-23-2025 Nucleated RBC/100 WBC (Bld) [Ratio] 0 % 0-5 [facility] Platelet countOrdered By: Dinh [place] on 01-23-2025 Platelets (Bld) [#/Vol] 136 10*3/uL Low 150-450 [facility] Potassium measurement (mass/ volume)Ordered By: Henry [place] on 01-23-2025 Potassium (Unsp spec) [Mass/Vol] 3.9 mmol/L 3.3-5.1 [facility] Protein Test strip Ql (U)Ord ered By: Henry [place] on 01-23-2025 Protein Ql (U) 30 mg/dl High Negative [facility] Quantitative urine opiates m easurementOrdered By: Henry [place] on 01-23-2025 Opiates Ql (U) Negative < 300 ng/mL [facility] RBC Auto (Bld) [#/Vol]Ordere d By: Henry [place] on 01-23-2025 RBC (Bld) [#/Vol] 3.72 10*6/uL Low 4.6-6.2 [facility] Screening urine fentanyl kelley surementOrdered By: Henry [place] on 07-13-2025 fentaNYL Screen Ql (U) Negative [facility] Serum creatinine measurement (mass/volume)Ordered By: Henry [place] on 01-23-2025 Creatinine [Mass/Vol] 1.53 mg/dL High 0.70-1.20 [facility] Serum glucose measurement (m ass/volume)Ordered By: Henry [place] on 01-23-2025 Glucose [Mass/Vol] 130 mg/dL High 70-99 [facility] Serum or plasma calcium diane urement (mass/volume)Ordered By: Henry Figueroa on 01-23-2025 Calcium [Mass/Vol] 8.9 mg/dL 7.6-11.0 [facility] Serum or plasma ethanol diane urement (mass/volume)Ordered By: Henry Figueroa on 01-23-2025 Ethanol [Mass/Vol] mg/dL <10.1 [facility] Comment on above: This test is for med ical purposes only. The legal definition of intoxication varies according to local law. Serum or plasma urea nitroge n measurement (mass/volume)Ordered By: Henry [place] on 01-23-2025 Urea nitrogen [Mass/Vol] 27 mg/dL High 4-19 [facility] Sodium levelOrdered By: Moises [place] on 01-23-2025 Sodium [Moles/Vol] 136 mmol/L 133-145 [facility] Squamous epithelial cells de tection in urine sediment by light microscopyOrdered By: Henry [place] on 01-23-2025 Epithelial cells.squamous LM Ql (Urine sed) 0 SEEN /hpf 0-5 [facility] Urinalysis, Completeon 01-23 RBC 0-5 SEEN Normal 0-5 [facility] Comment on above: Order Comment: 110.1 Performed By: #### L 500.2500, L100.0500 #### [facility] [address] [place], [address] BACTERIA 0 SEEN Normal None Seen [facility] Comment on above: Order Comment: 110.1 Performed By: #### L 500.2500, L100.0500 #### [facility] [address] [place], [address] EPI,SQUAMOUS 0 SEEN Normal 0-5 [facility] Comment on above: Order Comment: 110.1 Performed By: #### L 500.2500, L100.0500 #### [facility] [address] [place], [address] Mucus Ql (Urine sed) 0 SEEN Normal [facility] Comment on above: Order Comment: 110.1 Performed By: #### L 500.2500, L100.0500 #### [facility] [address] [place], [address] WBC 0 SEEN Normal 0-5 [facility] Comment on above: Order Comment: 110.1 Performed By: #### L 500.2500, L100.0500 #### [facility] [address] [place], [address] Urine Drug Screen (VISTA)on 01-23-2025 AMPHETAMINES Negative Normal <1000 ng/mL [facility] Comment on above: Performed By: #### L 500.4100, L100.0500, L500.2500 #### [facility] [address] [place], [address] BARBITIURATES Negative Normal < 200 ng/mL [facility] Comment on above: Performed By: #### L 500.4100, L100.0500, L500.2500 #### [facility] [address] [place], [address] BENZODIAZIPINE Negative Normal < 200 ng/mL [facility] Comment on above: Performed By: #### L 500.4100, L100.0500, L500.2500 #### [facility] [address] [place], [address] BUP Ur Drug Scr Negative Normal < 200 ng/mL [facility] Comment on above: Performed By: #### L 500.4100, L100.0500, L500.2500 #### [facility] [address] [place], [address] COCAINE Negative Normal < 300 ng/mL [facility] Comment on above: Performed By: #### L 500.4100, L100.0500, L500.2500 #### [facility] [address] [place], [address] Fentanyl Negative Normal [facility] Comment on above: Performed By: #### L 500.4100, L100.0500, L500.2500 #### [facility] [address] [place], [facility] METHADONE Negative Normal < 300 ng/mL [facility] Comment on above: Performed By: #### L 500.4100, L100.0500, L500.2500 #### [facility] [address] [place], [facility] OPIATES Negative Normal < 300 ng/mL [facility] Comment on above: Performed By: #### L 500.4100, L100.0500, L500.2500 #### [facility] [address] [place], [facility] OXYCODONE Negative Normal < 100 ng/mL [facility] Comment on above: Performed By: #### L 500.4100, L100.0500, L500.2500 #### [facility] [address] [place], [address] PCP Negative Normal < 25 ng/mL [facility] Comment on above: Performed By: #### L 500.4100, L100.0500, L500.2500 #### [facility] [address] [place], [facility] THC Negative Normal < 50 ng/mL [facility] Comment on above: Performed By: #### L 500.4100, L100.0500, L500.2500 #### [facility] [place], [address] Urine benzodiazepine levelOr dered By: Henry [place] on 01-23-2025 Benzodiazepines Ql (U) Negative < 200 ng/mL W [facility] Urine clarityOrdered By: Ben [place] on 01-23-2025 Clarity (U) Clear Clear [facility] Urine cocaine levelOrdered B y: Henry [place] on 01-23-2025 Cocaine Ql (U) Negative < 300 ng/mL [facility] Urine color determinationOrd ered By: Henry [place] on 01-23-2025 Color (U) Yellow Yellow [facility] Urine qjodl-2-pefuhydxjfjyvo abinol (THC) measurementOrdered By: Henry Figueroa on 01-23-2025 Cannabinoids Screen Ql (U) Negative < 50 ng/mL [facility] Urine glucose detectionOrder ed By: Henry [place] on 01-23-2025 Glucose Ql (U) Normal mg/dl Normal [facility] Urine leukocyte esterase det ection by dipstickOrdered By: Henry [place] on 01-23-2025 Leukocyte esterase Test strip Ql (U) Negative Negative [facility] Urine pHOrdered By: Henry Hale on 01-23-2025 pH (U) 5.0 [pH] 5.0 - 8.0 [facility] Urine phencyclidine (PCP) de tectionOrdered By: Henry [place] on 01-23-2025 Phencyclidine Ql (U) Negative < 25 ng/mL [facility] Urine sediment bacteria coun t by microscopy (number/high power field)Ordered By: Henry [place] on 01-23-2025 Bacteria LM.HPF (Urine sed) [#/Area] 0 /[HPF] None Seen [facility] Urine specific gravity measu rementOrdered By: Henry [place] on 01-23-2025 Specific gravity (U) [Rel density] 1.025 1.002-1.030 [facility] Urine urobilinogen measureme ntOrdered By: Henry OrdoñezJean on 01-23-2025 Urobilinogen Ql (U) Normal mg/dl Normal [facility] White blood cell (WBC) count Ordered By: Henry [facility] on 01-23-2025 WBC (Bld) [#/Vol] 4.2 10*3/uL Low 4.4-11.0 [facility] White blood cell countOrdere d By: Henry [place] on 01-23-2025 White blood cell count 0 SEEN /hpf 0-5 W [facility] Cardiology Visit Reporton Cardiology Visit Report [facility] [address] [place] [address]. 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 Normal [facility] Pacemaker Checkon 12-01-2024 Pacemaker Check [facility] [address] [place] [address]. [address] [place] [address] Pacemaker Check Date of Service: 12/01/241713 MR#: [id number] Acct: [id number] Name: SOPHIA CORTES Rep #: [id number] : 1940 From: Toya Herrera Age/Sex: 83/M Location: [facility] [place] Status: Signed Billing Codes ICD Device Billin ICD Dev Prog Eval, Dual Assessment and Plan Assessment and Plan (1) Ischemic cardiomyopathy: Status: Chronic (2) Presence of automatic implantable cardioverter-defibr illator: Status: Chronic Comment: [place] Energen ICD Dual Chamber (3) NSVT (nonsustained ventricular tachycardia): Status: Chronic 12/01/241713 Date Toya Gonzalez Signature: Date (if applicable) CC: Normal [facility] Absolute lymphocyte countOrd ered By: Marcelino Arizmendi on 11-10-2023 Lymphocytes Auto (Unsp spec) [#/Vol] 1.08 10*3/uL 0.83-4.51 [facility] Automated lymphocyte count a s percentage of total leukocytesOrdered By: Marcelino Arizmendi on 11-10-2023 Lymphocytes/100 WBC Auto (Unsp spec) 19.5 % 19-41 [facility] Basophil percentageOrdered B y: Marcelino Arizmendi on 11-10-2023 Basophils/100 WBC (Bld) 0.4 % 0-1 [facility] Bilirubin [Mass/Vol] 1.20 mg/dL 0.20-1.00 [facility] Comment on above: For patients on eltr ombopag therapy, use of [place] TBIL is not recommended. Chloride [Moles/Vol] 107 mmol/L 98-107 [facility] Eosinophils/100 WBC (Bld) 0.9 % 0-5 [facility] Glucose [Mass/Vol] 97 mg/dL 74-106 [facility] Hemoglobin (Bld) [Mass/Vol] 14.0 g/dL 13.0-16.5 [facility] Monocytes/100 WBC (Bld) 7.9 % 0-10 [facility] Neutrophils (Bld) [#/Vol] 4.0 10*3/uL 2.0-7.7 [facility] Neutrophils/100 WBC (Bld) 71.1 % 47-70 [facility] Potassium [Moles/Vol] 4.3 mmol/L 3.5-5.1 [facility] Protein [Mass/Vol] 7.6 g/dL 6.4-8.2 [facility] Sodium [Moles/Vol] 137 mmol/L 136-145 [facility] WBC (Bld) [#/Vol] 5.6 10*3/uL 4.4-11.0 [facility] Blood manual differential co mment interpretation (narrative result)Ordered By: Marcelino Arizmendi on 11-10-2023 Manual differential comment Eduardo (Bld) [Interp] SCANNED [facility] Comment on above: Please note: For thi [...] 11-10-2023 Platelets LM Ql (Bld) ADEQUATE ADEQ [facility] Determination of erythrocyte mean corpuscular volume (MCV)Ordered By: Marcelino Arizmendi on 11-10-2023 MCV (RBC) [Entitic vol] 93.6 fL 80-94 [facility] Erythrocyte distribution wid th ratioOrdered By: Marcelino Arizmendi on 11-10-2023 Erythrocyte distribution width (RBC) [Ratio] 13.4 % 11.6-14.6 [facility] Erythrocyte distribution wid th standard deviationOrdered By: Marcelino Arizmendi on 11-10-2023 Erythrocyte distribution width (RBC) [Entitic vol] 45.7 fL 35.1-43.9 [facility] Hematocrit Auto (Bld) [Volum e fraction]Ordered By: Marcelino Arizmendi on 11-10-2023 Hematocrit (Bld) [Volume fraction] 42.7 % 40-54 [facility] Immature granulocytes/100 WB C Auto (Bld)Ordered By: Marcelino Arizmendi on 11-10-2023 Immature granulocytes/100 WBC (Bld) 0.200 % 0.0-0.9 [facility] Comment on above: IG% - Immature Granu locytes (promyelocytes, myelocytes and metamyelocytes) > 1% indicates that a LEFT SHIFT is Present. Laboratory - Chemistry and C hemistry - challengeOrdered By: Marcelino Arizmendi on 11-10-2023 Albumin/Globulin [Mass ratio] 1.1 {ratio} 0.9-2.4 [facility] ALP [Catalytic activity/Vol] 71 U/L 45-117 [facility] ALT [Catalytic activity/Vol] 19 U/L 16-61 [facility] CO2 [Moles/Vol] 21.0 mmol/L 21.0-32.0 [facility] Globulin (S) [Mass/Vol] 3.7 g/dL 2.2-4.2 [facility] Magnesium [Mass/Vol] 2.3 mg/dL 1.6-2.6 [facility] Urea nitrogen/Creatinine [Mass ratio] 15.7 mg/mg 10-20 [facility] Laboratory - Hematology and Cell countsOrdered By: Marcelino Arizmendi on 11-10-2023 MCH (RBC) [Entitic mass] 30.7 pg 27.0-32.0 [facility] MCHC (RBC) [Mass/Vol] 32.8 g/dL 32-36 [facility] Nucleated RBC/100 WBC (Bld) [Ratio] 0 % 0-5 [facility] Platelet mean volume (Bld) [Entitic vol] 11.2 fL 6.2-12.0 [facility] No Panel InformationOrdered By: Marcelino Arizmendi on 11-10-2023 Estimated GFR (MDRD) Amer 70 mL/min >60 [facility] Comment on above: GFR Calc Estimated GFR (MDRD) Non-Af Amer 58 mL/min >60 [facility] Comment on above: Non- GFR Calc Platelet Count TNP [facility] Comment on above: Test not performedPl ease [...] 11-10-2023 RBC (Bld) [#/Vol] 4.56 10*6/uL 4.6-6.2 [facility] Serum or plasma calcium diane urement (mass/volume)Ordered By: Marcelino Arizmendi on 11-10-2023 Calcium [Mass/Vol] 9.1 mg/dL 8.5-10.1 [facility] Serum or plasma creatinine m easurement (mass/volume)Ordered By: Marcelino Arizmendi on 11-10-2023 Creatinine [Mass/Vol] 1.27 mg/dL 0.70-1.30 [facility] Comment on above: The validity of the calculated GFR & GFRAA in patients over 70 years has not been determined. Clinical correlation is essential. Serum or plasma thyroid stim ulating hormone (TSH) measurement (units/volume)Ordered By: Marcelino Arizmendi on 11-10-2023 TSH Qn 1.52 uIU/mL 0.358-3.74 [facility] Serum or plasma urea nitroge n measurement (mass/volume)Ordered By: Marcelino Arizmendi on 11-10-2023 Urea nitrogen [Mass/Vol] 20 mg/dL 7-18 [facility] Thin prep Papanicolaou smear with manual screeningOrdered By: Marcelino Arizmendi on 11-10-2023 Thin prep Papanicolaou smear with manual screening 3.9 g/dL 3.2-5.0 [facility] Thin prep Papanicolaou smear with manual screening 23 U/L 15-37 [facility] Thin prep Papanicolaou smear with manual screening 9 5-15 [facility] Thin prep Papanicolaou smear with manual screening 1.24 ng/dL 0.76-1.46 [facility] Basophil percentageOrdered B y: Marcelino Arizmendi on 10-22-2023 Bilirubin [Mass/Vol] 0.90 mg/dL 0.20-1.00 [facility] Comment on above: For patients on eltr ombopag therapy, use of [place] TBIL is not recommended. Cholesterol [Mass/Vol] 171 mg/dL <200 [facility] Comment on above: <200 mg/dL Desirable 200-240 mg/dL Borderline >240 mg/dL High Risk Protein [Mass/Vol] 6.8 g/dL 6.4-8.2 [facility] Triglyceride [Mass/Vol] 96 mg/dL <199 [facility] Comment on above: The drugs N-Acetylcy steine and Metamizole may falsely depress this assay.Serum Triglycerides Reference Interval Normal <150 mg/dL Borderline high 150 - 199 mg/dL High 200 - 499 mg/dL Very High > or = 500 mg/dL Direct bilirubinOrdered By: Marcelino Arizmendi on 10-22-2023 Bilirubin.direct [Mass/Vol] 0.19 mg/dL 0.00-0.30 [facility] Laboratory - Chemistry and C hemistry - challengeOrdered By: Marcelino Arizmendi on 10-22-2023 ALP [Catalytic activity/Vol] 65 U/L 45-117 [facility] ALT [Catalytic activity/Vol] 16 U/L 16-61 [facility] Cholesterol in HDL [Mass/Vol] 47 mg/dL >40 [facility] Comment on above: The drugs N-Acetylcy steine and Metamizole may falsely depress this assay. Reference Range HDL <40 mg/dL Low HDL Cholesterol HDL >or= 60 mg/dL High HDL Cholesterol Cholesterol in LDL [Mass/Vol] 105 mg/dL 0-130 [facility] Globulin (S) [Mass/Vol] 3.3 g/dL 2.2-4.2 [facility] No Panel InformationOrdered By: Marcelino Arizmendi on 10-22-2023 VLDL Cholesterol 19 mg/dL 5-40 [facility] Thin prep Papanicolaou smear with manual screeningOrdered By: Marcelino Arizmendi on 10-22-2023 Thin prep Papanicolaou smear with manual screening 3.5 g/dL 3.2-5.0 [facility] Thin prep Papanicolaou smear with manual screening 18 U/L 15-37 [facility] Lab Report: Lipid Profileon 06-19-2017 Cholesterol 79 mg/dL Invalid Interpretation Code 200 [facility] Work Phone: [phone] HDL Cholesterol 54 mg/dL Invalid Interpretation Code [facility] Work Phone: [phone] LDL Cholesterol 17 mg/dL Invalid Interpretation Code 0-130 [facility] Work Phone: [phone] Triglyceride 40 mg/dL Invalid Interpretation Code [facility] [employer] Work Phone: [phone] very low density lipoproteins 8 mg/dL Invalid Interpretation Code 5-40 [facility] Work Phone: [phone] Lab Report: Liver Profileon 06-19-2017 Alanine aminotransferase (ALT) 21 U/L Invalid Interpretation Code 12-78 [facility] Work Phone: [phone] Albumin 3.6 g/dL Invalid Interpretation Code 3.4-5.0 [facility] Work Phone: [phone] Alkaline phosphatase (ALP) 83 U/L Invalid Interpretation Code 45-117 [facility] [employer] Work Phone: Aspartate aminotransferase (AST) 25 U/L Invalid Interpretation Code 15-37 [employer] Work Phone: [phone] Bilirubin (direct) 0.30 mg/dL Invalid Interpretation Code 0.00-0.30 [employer] Work Phone: [phone] Bilirubin (total) 1.00 mg/dL Invalid Interpretation Code 0.20-1.00 [employer] Work Phone: [phone] Globulin 2.8 g/dL Invalid Interpretation Code 2.2-4.2 [employer] Work Phone: [phone] Protein 6.4 g/dL Invalid Interpretation Code 6.4-8.2 [employer] Phone: [phone] Office Visiton 12-19-2016 Documentation of current medications (procedure) Done Invalid Interpretation Code [employer] Phone: [phone] Fall risk assessment No Invalid Interpretation Code [employer] Phone: [phone] Protein mass conc Done [employer] Work Phone: [phone] Lab Report: Lipid Profileon 12-06-2016 Cholesterol 87 mg/dL Invalid Interpretation Code 200 [employer] Work Phone: [phone] HDL Cholesterol 49 mg/dL Invalid Interpretation Code [employer] Work Phone: [phone] LDL Cholesterol 23 mg/dL Invalid Interpretation Code 0-130 [employer] Phone: [phone] Triglyceride 73 mg/dL Invalid Interpretation Code [employer] Phone: [phone] very low density lipoproteins 15 mg/dL Invalid Interpretation Code 5-40 [employer] Work Phone: [phone] Lab Report: Liver Profileon 12-06-2016 Alanine aminotransferase (ALT) 20 U/L Invalid Interpretation Code 12-78 [employer] Work Phone: [phone] Albumin 3.6 g/dL Invalid Interpretation Code 3.4-5.0 [employer] Phone: [phone] Alkaline phosphatase (ALP) 77 U/L Invalid Interpretation Code 45-117 [employer] Work Phone: [phone] ALP (Bld) [Catalytic activity/Vol] 77 U/L 45-117 [employer] Work Phone: [phone] Aspartate aminotransferase (AST) 20 U/L Invalid Interpretation Code 15-37 [facility] [employer] Work Phone: [phone] Bilirubin (direct) 0.24 mg/dL Invalid Interpretation Code 0.00-0.30 [facility] [employer] Work Phone: [phone] Bilirubin (total) 0.90 mg/dL Invalid Interpretation Code 0.20-1.00 [facility] Work Phone: [phone] Globulin 2.9 g/dL Invalid Interpretation Code 2.3-3.5 [facility] [employer] Work Phone: [phone] Globulin (S) [Mass/Vol] 2.9 g/dL 2.3-3.5 [facility] Work Phone: [phone] Protein 6.5 g/dL Invalid Interpretation Code 6.4-8.2 [employer] Phone: [phone] Office Visiton 12-19-2015 Documentation of current medications (procedure) Done Invalid Interpretation Code [facility] Work Phone: [phone] Clinical Lists Update: Prelo legislative advocate 12-13-2015 Left ventricular Ejection fraction 30 % Invalid Interpretation Code [facility] Work Phone: [phone] Lab Report: Basic Metabolic Profile (BMP)on 06-20-2015 Anion gap 8 mmol/L Invalid Interpretation Code 5-15 [facility] Work Phone: [phone] Anion gap [Moles/Vol] 8 mmol/L 5-15 [facility] [employer] [place] Work Phone: [phone] BUN/Creatinine Ratio 17.5 RATIO Invalid Interpretation Code 10-20 [facility] [employer] Work Phone: [phone] Calcium 8.6 mg/dL Invalid Interpretation Code 8.5-10.1 [facility] [employer] Work Phone: [phone] Chloride 106 mmol/L Invalid Interpretation Code 98-107 [facility] [employer] Work Phone: [phone] CO2 27.0 mmol/L Invalid Interpretation Code 21.0-32.0 [facility] [employer] Work Phone: [phone] CO2 (BldV) [Partial pressure] 27.0 mmol/L 21.0-32.0 [facility] Work Phone: [phone] Creatinine 0.91 mg/dL Invalid Interpretation Code 0.70-1.30 [employer] Work Phone: [phone] eGFR (non-black) 87 mL/min/{1.73_m2} Invalid Interpretation Code >60 [employer] Work Phone: [phone] eGFR (non-black) 105 mL/min/{1.73_m2} Invalid Interpretation Code >60 [employer] Work Phone: [phone] EST GFR - AA 105 mL/min >60 [employer] Work Phone: [phone] Glucose 87 mg/dL Invalid Interpretation Code 70-110 [employer] Work Phone: [phone] Glucose [Mass/Vol] 87 mg/dL Invalid Interpretation Code 70-110 [employer] Work Phone: [phone] Potassium 4.3 mmol/L Invalid Interpretation Code 3.5-5.1 [employer] Work Phone: [phone] Sodium 141 mmol/L Invalid Interpretation Code 136-145 [employer] Work Phone: [phone] Urea nitrogen 16 mg/dL Invalid Interpretation Code 7-18 [employer] Work Phone: [phone] Lab Report: CBC W/Diff, Auto matedon 06-20-2015 Absolute Neut 3.2 X10 3/UL Invalid Interpretation Code 2.0-7.7 [employer] Phone: [phone] Basophils/100 leukocytes 0.2 % Invalid Interpretation Code 0-1 [employer] Work Phone: [phone] Basophils/100 WBC (Bld) 0.2 % 0-1 [facility] [employer] Work Phone: [phone] Eosinophils/100 leukocytes 1.1 % Invalid Interpretation Code 0-5 [employer] Work Phone: [phone] Eosinophils/100 WBC (Bld) 1.1 % 0-5 [employer] Work Phone: [phone] Erythrocyte distribution width (RBC) [Ratio] 43.2 fL 35.1-43.9 [employer] Work Phone: [phone] Erythrocyte distribution width (RBC) [Ratio] 12.1 % 11.6-14.6 [facility] Work Phone: 1() Erythrocytes (RBC) 4.22 10*6/uL Low 4.6-6.[address] [facility] Work Phone: [phone]() Hematocrit (Bld) [Volume fraction] 41.8 % 40-54 [facility] Work Phone: [phone]) Hematocrit (HCT) 41.8 % Invalid Interpretation Code 40-54 [facility] Work Phone: [phone]() Hemoglobin (HGB) 14.1 g/dL Invalid Interpretation Code 13.0-16.5 [facility] Work Phone: [phone]) Immature granulocytes (Bld) [#/Vol] 0.200 % 0.0-0.9 [facility] Work Phone: [phone]) immature granulocytes, percentage of total cells, blood 0.200 % Invalid Interpretation Code 0.0-0.9 [facility] Work Phone: 1) Immature granulocytes/100 WBC (Bld) 0.200 % Invalid Interpretation Code 0.0-0.9 [facility] Work Phone: [phone]() Lymphocytes 0.80 X10 3/UL Low 0.83-4.51 [facility] Work Phone: 1) Lymphocytes (Bld) [#/Vol] 0.80 X10 3/UL Low 0.83-4.51 [facility] Work Phone: 1() Lymphocytes/100 leukocytes 18.2 % Low 19-41 [facility] Work Phone: 1() Lymphocytes/100 WBC (Bld) 18.2 % Low 19-41 [facility] Work Phone: 1() MCH 33.4 pg High 27.0-32.0 [facility] Work Phone: [phone]() MCH (RBC) [Entitic mass] 33.4 pg High 27.0-32.0 [facility] Work Phone: 1() MCHC 33.7 G/GL Invalid Interpretation Code 32-36 [facility] Work Phone: [phone] MCHC (RBC) [Mass/Vol] 33.7 G/GL 32-36 [facility] Work Phone: [phone] MCV 99.1 fL High 80-94 [facility] Work Phone: [phone] MCV (RBC) [Entitic vol] 99.1 fL High 80-94 [facility] Work Phone: [phone] Monocytes/100 leukocytes 8.4 % Invalid Interpretation Code 0-10 [facility] Work Phone: [phone] Monocytes/100 WBC (Bld) 8.4 % 0-10 [facility] Work Phone: [phone] neutrophil count, blood 3.2 X10 3/UL Invalid Interpretation Code 2.0-7.7 [facility] Work Phone: [phone] Neutrophils (Bld) [#/Vol] 3.2 X10 3/UL 2.0-7.7 [facility] Work Phone: 1() 00 Neutrophils/100 leukocytes 71.9 % High 47-70 [facility] Work Phone: [phone] Neutrophils/100 WBC (Bld) 71.9 % High 47-70 [facility] Work Phone: [phone] Platelet mean volume (Bld) [Entitic vol] 12.4 fL High 6.2-12.0 [facility] Work Phone: [phone] Platelets 112 10*3/mm3 Low 150-450 [facility] Work Phone: 1() 00 Platelets (Bld) [#/Vol] 112 10*3/mm3 Low 150-450 [facility] Work Phone: [phone] PMV by Macarena 12.4 fL High 6.2-12.0 [facility] Work Phone: [phone] RBC (Bld) [#/Vol] 4.22 10*6/uL Low 4.6-6.2 [facility] Work Phone: [phone] RDW SD 43.2 fL Invalid Interpretation Code 35.1-43.9 [facility] Work Phone: RDW-CA 12.1 % Invalid Interpretation Code 11.6-14.6 [facility] [employer] Work Phone: [phone] red blood cell distribution width, size density 43.2 fL Invalid Interpretation Code 35.1-43.9 [facility] Work Phone: [phone] WBC (Bld) [#/Vol] 4.4 10*3/uL 4.4-11.0 [facility] [employer] Work Phone: [phone] WBC (Leukocytes) 4.4 10*3/uL Invalid Interpretation Code 4.4-11.0 [facility] [employer] Work Phone: [phone] Office Visit: [facility] 06-20-20 15 Tobacco smoking status PRIS Tobacco smoking status PRIS Invalid Interpretation Code [facility] [employer] Phone: [phone] Tobacco smoking status [facility] Never smoker [employer] Phone: [phone] Tobacco use [facility] Never smoker Invalid Interpretation Code [facility] Phone: [phone] Replaced Document: Carrie Segundo 06-20-2015 EKG QRS axis -27 deg Invalid Interpretation Code [employer] Work Phone: [phone] electrocardiogram interpretation Marked sinus Bradycardia -Anterior infarct -age undetermined. - Negative T-waves -Possible Anterolateral ischemia. ABNORMAL Invalid Interpretation Code [employer] Phone: [phone] GE use only - for [employer] import when terms are not otherwise specified 412 ms Invalid Interpretation Code [employer] Phone: [phone] Interpretation Marked sinus Bradycardia -Anterior infarct -age undetermined. - Negative T-waves -Possible Anterolateral ischemia. ABNORMAL Invalid Interpretation Code [facility] [employer] Work Phone: [phone] P [place] 67 deg Invalid Interpretation Code [employer] Work Phone: [phone] P wave axis, electrocardiogram 67 deg Invalid Interpretation Code [employer] Phone: [phone] NM Interval 174 ms Invalid Interpretation Code [facility] [employer] Phone: [phone] NM interval, electrocardiogram 174 ms Invalid Interpretation Code [employer] Phone: [phone] Pulse (Heart Rate) 47 /min Invalid Interpretation Code [employer] Work Phone: [phone] QRS axis, electrocardiogram -27 deg Invalid Interpretation Code [employer] Work Phone: [phone] QRS Duration 96 ms Invalid Interpretation Code [employer] Work Phone: [phone] QRS duration, electrocardiogram 96 ms Invalid Interpretation Code [employer] Work Phone: [phone] QT Interval new path ms Invalid Interpretation Code [employer] Work Phone: [phone] QT interval, electrocardiogram new path ms Invalid Interpretation Code [employer] Work Phone: [phone] QTc [place] 412 ms Invalid Interpretation Code [employer] Work Phone: [phone] T [place] 90 deg Invalid Interpretation Code [employer] Work Phone: [phone] T wave axis, electrocardiogram 90 deg Invalid Interpretation Code [employer] Work Phone: [phone] Office Visit: [facility] 06-13-20 14 cardiac risk group C Invalid Interpretation Code [employer] Work Phone: [phone] General cardiovascular disease 10Y risk [#] [place].D'Agost[place] N/A Invalid Interpretation Code [employer] Work Phone: [phone] LDL target level 100 mg/dL Invalid Interpretation Code [employer] Work Phone: [phone] Lab Report: PTon 07-20-2012 INR Coag (PPP) [Relative time] 1.2 {INR} Normal [employer] Work Phone: [phone] INR in blood by coagulation 1.2 {INR} Normal [employer] Work Phone: [phone] prothrombin time, actual/normal, ratio 14.0 SECONDS Normal 11.9-14.4 [employer] Work Phone: [phone] PTP 14.0 SECONDS Normal 11.9-14.4 [employer] Work Phone: [phone] Lab Report: UAon 07-20-2012 specific gravity, urine 1.020 Normal 1.002-1.030 [employer] Work Phone: [phone] Replaced Document: [employer] E CG Observationson 07-15-2012 Pulse (Heart Rate) 471 ms Invalid Interpretation Code [employer] Work Phone: Vital Signs Date Time Vital Sign Value Performing Clinician Dorothy lucero 02-10-2025 14:50-0400 Body temperature 98.3 [degF] Dr. Wolfgang Conde MD Work Phone: [facility] 02-10-2025 14:50-0400 Diastolic blood pressure 75 mm[Hg] Dr. Wolfgang Conde MD Work Phone: [facility] 02-10-2025 14:50-0400 Heart rate 67 /min Dr. Wolfgang Conde MD Work Phone: [facility] 02-10-2025 14:50-0400 Respiratory rate 14 /min Dr. Wolfgang Conde MD Work Phone: [facility] 02-10-2025 14:50-0400 SaO2% (BldA) [Mass fraction] 97 % Dr. Wolfgang Conde MD Work Phone: [facility] 02-10-2025 14:50-0400 Systolic blood pressure 110 mm[Hg] Dr. Wolfgang Conde MD Work Phone: [facility] 02-09-2025 08:22-0400 Body height 170.[address] Wolfgang Conde MD Work Phone: [facility] 02-09-2025 08:22-0400 Body weight 56.[address] Wolfgang Conde MD Work Phone: [facility] 02-08-2025 15:39-0400 Body mass index (BMI) [Ratio] 19.5 kg/m2 Dr. Wolfgang Conde MD Work Phone: [facility] 02-08-2025 15:01-0400 Body temperature 97.8 [degF] Dr. Wolfgang Conde MD Work Phone: [facility] 02-08-2025 15:01-0400 Diastolic blood pressure 84 mm[Hg] Dr. Wolfgang Conde MD Work Phone: [facility] 02-08-2025 15:01-0400 Heart rate 51 /min Dr. Wolfgang Conde MD Work Phone: [facility] 02-08-2025 15:01-0400 Respiratory rate 13 /min Dr. Wolfgang Conde MD Work Phone: [facility] 02-08-2025 15:01-0400 SaO2% (BldA) [Mass fraction] 100 % Dr. Wolfgang Conde MD Work Phone: [facility] 02-08-2025 15:01-0400 Systolic blood pressure 129 mm[Hg] Dr. Wolfgang Conde MD Work Phone: [facility] 02-08-2025 12:10-0400 Body mass index (BMI) [Ratio] 19.5 kg/m2 Dr. Wolfgang Conde MD Work Phone: [facility] 02-08-2025 12:10-0400 Body weight 56.[address] Wolfgang Conde MD Work Phone: [facility] 02-08-2025 11:55-0400 Body height 170.[address] Wolfgang Conde MD Work Phone: [facility] 01-23-2025 10:30-0400 Body temperature 98.2 [degF] Dr. Wolfgang Conde MD Work Phone: [facility] 01-23-2025 10:30-0400 Diastolic blood pressure 81 mm[Hg] Dr. Wolfgang Conde MD Work Phone: [facility] 01-23-2025 10:30-0400 Heart rate 76 /min Dr. Wolfgang Conde MD Work Phone: [facility] 01-23-2025 10:30-0400 Respiratory rate 16 /min Dr. Wolfgang Conde MD Work Phone: [facility] 01-23-2025 10:30-0400 SaO2% (BldA) [Mass fraction] 91 % Dr. Wolfgang Conde MD Work Phone: [facility] 01-23-2025 10:30-0400 Systolic blood pressure 123 mm[Hg] Dr. Wolfgang Conde MD Work Phone: [facility] 01-22-2025 23:50-0400 Body height 172.[address] Wolfgang Conde MD Work Phone: [facility] 01-22-2025 23:50-0400 Body mass index (BMI) [Ratio] 18.1 kg/m2 Dr. Wolfgang Conde MD Work Phone: [facility] 01-22-2025 23:50-0400 Body weight 54.[address] Wolfgang Conde MD Work Phone: [facility] 12-01-2024 14:19-0400 Body height 172.72 cm No Primary Care Physician [facility] 12-01-2024 14:17-0400 Body mass index (BMI) [Ratio] 21.1 kg/m2 No Primary Care Physician [facility] 12-01-2024 14:17-0400 Body weight 63.04 kg No Primary Care Physician [facility] 12-01-2024 14:17-0400 Diastolic blood pressure 82 mm[Hg] No Primary Care Physician [facility] 12-01-2024 14:17-0400 Heart rate 49 /min No Primary Care Physician [facility] 12-01-2024 14:17-0400 Respiratory rate 18 /min No Primary Care Physician [facility] 12-01-2024 14:17-0400 SaO2% (BldA) [Mass fraction] 98 % No Primary Care Physician [facility] 12-01-2024 14:17-0400 Systolic blood pressure 140 mm[Hg] No Primary Care Physician [facility] 11-10-2023 15:29-0400 Body height 172.72 cm No Primary Care Physician [facility] 11-10-2023 15:20-0400 Body mass index (BMI) [Ratio] 20.7 kg/m2 No Primary Care Physician [facility] 11-10-2023 15:20-0400 Body weight 61.68 kg No Primary Care Physician [facility] 11-10-2023 15:20-0400 Diastolic blood pressure 80 mm[Hg] No Primary Care Physician [facility] 11-10-2023 15:20-0400 Heart rate 64 /min No Primary Care Physician [facility] 11-10-2023 15:20-0400 Respiratory rate 16 /min No Primary Care Physician [facility] 11-10-2023 15:20-0400 Systolic blood pressure 135 mm[Hg] No Primary Care Physician [facility] 07-17-2023 13:46-0500 Body height 172.72 cm No Primary Care Physician [facility] 07-17-2023 13:46-0500 Body mass index (BMI) [Ratio] 21.2 kg/m2 No Primary Care Physician [facility] 07-17-2023 13:46-0500 Body weight 63.5 kg No Primary Care Physician [facility] 07-17-2023 13:46-0500 Diastolic blood pressure 88 mm[Hg] No Primary Care Physician [facility] 07-17-2023 13:46-0500 Heart rate 62 /min No Primary Care Physician [facility] 07-17-2023 13:46-0500 Respiratory rate 16 /min No Primary Care Physician [facility] 07-17-2023 13:46-0500 Systolic blood pressure 169 mm[Hg] No Primary Care Physician [facility] 12-19-2016 12:52-0400 BMI (Body Mass Index) 20.77 kg/m2 [facility] Work Phone: 12-19-2016 12:52-0400 Body weight 58.38 kg Saritha Ram [facility] Work Phone: 12-19-2016 12:52-0400 BP Diastolic 62 mm[Hg] Alisia Vasquez [facility] Work Phone: 12-19-2016 12:52-0400 BP Systolic 120 mm[Hg] Alisia Vasquez [facility] Work Phone: 12-19-2016 12:52-0400 Height 167.64 cm Alisia Vasquez [facility] Work Phone: 12-19-2016 12:52-0400 Pulse (Heart Rate) 58 /min [facility] Work Phone: 12-19-2016 12:52-0400 Respiratory Rate 16 /min [facility] Work Phone: 12-19-2016 12:52-0400 Weight 58.38 kg [facility] Work Phone: 06-18-2016 13:02-0500 BMI [...] Phone: 06-20-2015 13:01-0500 Heart rate 47 /min Harumi Leanna [facility] Work Phone: 07-27-2012 14:18-0500 Body Temperature 96.9 [degF] MD [facility] Work Phone: 07-15-2012 10:40-0500 Heart rate 471 ms Harumi Doreneedwige [facility] Work Phone: 10-11-2011 11:14-0400 Height 167.64 cm Wolfgang Conde MD [facility] Work Phone: Encounters Encounter Date Encounter Type Care Provider Facility Start: 05-03-2025 ambulatory Marcelino Minerva Salazar DANELLE Facil ity:[facility] Start: 04-04-2025 End: 04-04-2025 ambulatory Marcelino MCCLENDON Facility:[facility] Start: 04-01-2025 End: 04-01-2025 ambulatory No Primary Care Physician Facility:[facility] Start: 03-02-2025 ambulatory No Primary Car e Physician Facility:[facility] Start: 03-01-2025 End: 03-01-2025 ambulatory No Primary Care Physician Facility:[facility] Start: 02-10-2025 Non-patient / Non-visit Dr. Isadora Arndt MD [facility] Work Phone: Start: 02-09-2025 ambulatory Marcelino Arizmendi NP Facility :[facility] Start: 02-09-2025 Non-patient / Non-visit Dr. Isadora Arndt MD -[facility] Work Phone: Start: 02-08-2025 End: 02-10-2025 ambulatory No Primary Care Physician Facility:[facility] Start: 02-08-2025 End: 02-10-2025 Evaluation and management of inpatient Dr. Ajith Zimmer DO -[facility] Work Phone: Start: 02-08-2025 End: 02-10-[address] Wolfgang Conde MD Work Phone: -[facility] Start: 01-22-2025 End: 01-23-2025 Emergency department patient visit Dr. Wolfgang Conde MD Work Phone: -Emergency Department Work Phone: Start: 12-01-2024 End: 12-01-2024 ambulatory No Primary Care Physician [facility] Work Phone: Start: 12-01-2024 End: 12-01-2024 Patient encounter procedure Marcelino Arizmendi SEISMOLOGY TECHNICAL OFFICER-C -[facility] Work Phone: Start: 11-12-2023 End: 11-12-2023 Non-patient / Non-visit No Primary Care Physician [facility] Start: 11-10-2023 End: 11-10-2023 ambulatory No Primary Care Physician [facility] Work Phone: Start: 11-10-2023 End: 11-10-2023 Patient encounter procedure No Primary Care Physician [facility] Work Phone: Start: 11-10-2023 End: 11-10-2023 Patient encounter procedure No Primary Care Physician [facility] Work Phone: Start: 10-22-2023 End: 10-22-2023 ambulatory No Primary Care Physician [facility] Work Phone: Start: 10-22-2023 End: 10-22-2023 Patient encounter procedure No Primary Care Physician [facility] Work Phone: Start: 07-17-2023 End: 07-17-2023 Patient encounter procedure No Primary Care Physician [facility] Work Phone: Procedures Date Procedure Procedure [...] Start: 01-23-[address] Wolfgang Coned MD Work Phone: Start: 06-12-2017 End: 06-19-2017 [...] months Gwen Rivera Start: 12-19-2016 End: 12-19-2016 MMM Wolfgang Conde MD Start: 12-19-2016 End: 12-19-2016 Documentation of current medications Saritha Ram Start: 12-19-2016 End: 12-19-2016 Follow Up Appt 6 months Gwen Rivera Start: 12-19-2016 End: 12-19-2016 MMGwen Conde MD Start: 09-16-2016 End: 12-19-2016 Follow [...] [AGGREGATE] Gwen Rivera Start: 06-18-2016 End: 06-18-2016 WINE MANAGER Jeimy Huang PA-C Work Phone: Start: 06-18-2016 End: 12-19-2016 Follow Up Appt 3 months Gwen Rivera Start: 06-18-2016 End: 06-18-2016 Follow Up Appt 6 months Jeimy Huang PA-C Work Phone: Start: 06-18-2016 End: 12-19-2016 Pacer Clinic Wolfgang Conde MD Start: 06-18-2016 End: 07-04-2016 Prgrmg eval implantable in prsn dual lead dfb Wolfgang Conde MD Start: 06-18-2016 End: 06-18-2016 WINE MANAGER Jeimy Huang PA-C Work Phone: Start: 06-18-2016 [...] Prgrmg eval implantable in prsn dual lead venitab Wolfgang Conde MD Start: 03-19-2016 End: 06-11-2016 [...] months Gwen Rivera Start: 12-19-2015 End: 12-19-2015 MMM Wolfgang Conde MD Start: 12-19-2015 End: 06-11-2016 Pacer [...] Wolfgang Conde MD Start: 12-19-2015 End: 12-19-2015 MM Wolfgang Conde MD Start: 12-19-2015 End: 06-11-2016 Pacer [...] PA-C Work Phone: Start: 06-20-2015 End: 06-20-2015 WINE MANAGER Jeimy Huang PA-C Work Phone: Start: 06-20-2015 End: 06-20-2015 Ecg routine ecg w/least 12 lds w/i&r Jeimy Huang PA-C Work Phone: Start: 06-20-2015 End: 06-20-2015 Follow Up Appt 6 months Jeimy Huang PA-C Work Phone: Start: 06-20-2015 End: 07-03-2015 Nuclear stress test -Lexmirlande Huang PA-C Work Phone: Start: 06-20-2015 End: 06-20-2015 *BMP Jeimy Huang PA-C Work Phone: Start: 06-20-2015 End: 06-20-2015 *CBC with Differential Jeimy Huang PA-C Work Phone: Start: 06-20-2015 End: 06-20-2015 WINE MANAGER Jeimy Huang PA-C Work Phone: Start: 06-20-2015 [...] prsn dual lead jazz Conde MD Start: 02-28-2015 End: 06-13-2015 Follow [...] months Gwen Rivera Start: 12-20-2014 End: 12-20-2014 MM Wolfgang Conde MD Start: 12-20-2014 End: 12-21-2014 [...] PA-C Work Phone: Start: 06-13-2014 End: 06-13-2014 WINE MANAGER Jeimy Huang PA-C Work Phone: Start: 06-13-2014 [...] PA-C Work Phone: Start: 06-13-2014 End: 06-13-2014 WINE MANAGER Jeimy Huang PA-C Work Phone: Start: 06-13-2014 [...] PA-C Work Phone: Start: 06-15-2013 End: 06-15-2013 WINE MANAGER Jeimy Huang PA-C Work Phone: Start: 06-15-2013 End: 06-15-2013 Follow Up Appt 6 months Jeimy Huang PA-C Work Phone: Start: 06-15-2013 End: 06-16-2013 Lipid 1996 panel - Serum or Plasma Jeimy Huang PA-C Work Phone: Start: 06-15-2013 End: 06-16-2013 *Hepatic Function Panel Jeimy Huang PA-C Work Phone: Start: 06-15-2013 End: 06-15-2013 WINE MANAGER Jeimy Huang PA-C Work Phone: Start: 06-15-2013 [...] End: 12-17-2012 MMM Wolfgang Conde MD Start: 12-17-2012 End: 12-17-2012 Follow Up Appt 6 months Gwen Rivera Start: 12-17-2012 End: 12-17-2012 MMM Wolfgang Conde MD Start: 11-11-2012 End: 06-16-2013 *Hepatic Function Panel Gwen Rivera Start: 11-11-2012 End: 06-16-2013 Lipid 1996 panel - Serum or Plasma Wolfgang Conde MD Start: 11-11-2012 End: 06-16-2013 *Hepatic Function Panel Gwen Rviera Start: 11-11-2012 End: 06-16-2013 Lipid panel [AGGREGATE] [...] PERCUTANEOUS TRANSLUMINAL CORONARY ANGIOPLASTY, HX OF Saritha Ram Start: 07-28-2009 History of placement of stent for coronary artery disease History of coronary artery stent placement Marcelino Arizmendi SEISMOLOGY TECHNICAL OFFICER-C Comment on above: [id number]-[id number]-[id number] and Mid LAD w/ Veriflex BMS 3.0 x 20 mm and Micro Finance Clerk BMS 2.5 x 18 mm 07/28/09 Plan of Treatment Date Care Activity Detail Author Start: 02-10-2025 Patient discharge [facility] Start: 02-08-2025 Following clinical pathway protocol [facility] Start: 02-08-2025 Patient referral to dietitian [facility] Start: 02-08-2025 Ambulation without limitation [facility] Start: 02-08-2025 Assessment of risk of venous thromboembolism [facility] Start: 02-08-2025 Insertion of catheter into peripheral vein [facility] Start: 02-08-2025 Measuring intake and output [facility] Start: 02-08-2025 Oxygen therapy [facility] Start: 02-08-2025 Providing care according to standard [facility] Start: 02-08-2025 Referral to occupational therapist [facility] Start: 02-08-2025 Referral to service [facility] Start: 02-08-2025 [facility] Start: 02-08-2025 Verification routine [facility] Start: 02-08-2025 Hospital admission, emergency, from emergency room, medical nature [facility] Start: 02-08-2025 Admission procedure [facility] Start: 01-23-2025 [facility] Start: 01-23-2025 Suicide precautions [facility] Start: 11-10-2023 Patient referral [facility] Work Phone: Start: 07-17-2017 End: 07-17-2017 Appointment Appointment [facility] Work Phone: Start: 07-02-2017 End: 07-02-2017 Appointment Appointment [facility] Work Phone: Start: 06-12-2017 End: 06-19-2017 *Hepatic Function Panel *Hepatic Function Panel [facility] Work Phone: Start: 06-12-2017 End: 06-19-2017 Lipid panel [AGGREGATE] *Lipid Profile CC PCP [facility] Work Phone: Start: 06-12-2017 End: 12-20-2016 *Hepatic Function Panel *Hepatic Function Panel [facility] Work Phone: Start: 06-12-2017 End: 12-20-2016 Lipid panel [AGGREGATE] *Lipid Profile CC PCP [facility] Work Phone: Start: 04-04-2017 End: 04-05-2017 Follow Up Appt 3 months Follow Up Appt 3 months [facility] Work Phone: Start: 04-04-2017 End: 04-05-2017 Pacer Clinic [facility] Work Phone: Start: 04-04-2017 End: 04-04-2017 Appointment Appointment [facility] Work Phone: Start: 04-04-2017 End: 04-05-2017 Follow Up Appt 3 months Follow Up Appt 3 months [facility] Work Phone: Start: 04-04-2017 End: 04-05-2017 Pacer Clinic Pac[facility] Clinic [facility] Work Phone: Start: 12-27-2016 End: 12-27-2016 Follow Up Appt 3 months Follow Up Appt 3 months [facility] Work Phone: Start: 12-27-2016 End: 12-27-2016 Pacer Clinic Pacer Clinic [facility] Work Phone: Start: 12-27-2016 End: 12-27-2016 Appointment Appointment [facility] Work Phone: Start: 12-27-2016 End: 12-27-2016 Appointment Appointment [facility] Work Phone: Start: 12-27-2016 End: 12-27-2016 Follow Up Appt 3 months Follow Up Appt 3 months [facility] Work Phone: Start: 12-27-2016 End: 12-27-2016 Pacer Clinic Pac[facility] Clinic [facility] Work Phone: Start: 12-19-2016 End: 12-19-2016 Follow Up Appt 6 months Follow Up Appt 6 months [facility] Work Phone: Start: 12-19-2016 End: 12-19-2016 MMM MMM [facility] Work Phone: Start: 12-19-2016 End: 12-19-2016 Appointment Appointment [facility] Work Phone: Start: 12-19-2016 End: 12-19-2016 Appointment Appointment [facility] Work Phone: Start: 12-19-2016 End: 12-19-2016 Follow Up Appt 6 months Follow Up Appt 6 months [facility] Work Phone: Start: 12-19-2016 End: 12-19-2016 MMM MMM [facility] Work Phone: Start: 09-16-2016 End: 12-19-2016 Follow Up Appt 3 months Follow Up Appt 3 months [facility] Work Phone: Start: 09-16-2016 End: 12-19-2016 Pacer Clinic Pacer Clinic [facility] Work Phone: Start: 09-16-2016 End: 12-19-2016 Follow Up Appt 3 months Follow Up Appt 3 months [facility] Work Phone: Start: 09-16-2016 End: 12-19-2016 Pacer Clinic [facility] Clinic [facility] Work Phone: Start: 08-19-2016 End: 12-10-2016 *Hepatic Function Panel *Hepatic Function Panel [facility] Work Phone: Start: 08-19-2016 End: 12-10-2016 Lipid panel [AGGREGATE] *Lipid Profile CC PCP [facility] Work Phone: Start: 08-19-2016 End: 12-10-2016 *Hepatic Function Panel *Hepatic Function Panel [facility] Work Phone: Start: 08-19-2016 End: 12-10-2016 Lipid panel [AGGREGATE] *Lipid Profile CC PCP [facility] Work Phone: Start: 06-18-2016 End: 06-18-2016 WINE MANAGER WINE MANAGER [facility] Work Phone: Start: 06-18-2016 End: 12-19-2016 Follow Up Appt 3 months Follow Up Appt 3 months [facility] Work Phone: Start: 06-18-2016 End: 06-18-2016 Follow Up Appt 6 months Follow Up Appt 6 months [facility] Work Phone: Start: 06-18-2016 End: 12-19-2016 Pacer Clinic Pacer Clinic [facility] Work Phone: Start: 06-18-2016 End: 06-18-2016 WINE MANAGER WINE MANAGER [facility] Work Phone: Start: 06-18-2016 [...] 3 months Follow Up Appt 3 months [facility] Work Phone: Start: 03-19-2016 End: 06-11-2016 Pacer Clinic Pacer Clinic [facility] Work Phone: Start: 03-19-2016 End: 06-11-2016 Follow Up Appt 3 months Follow Up Appt 3 months [facility] Work Phone: Start: 03-19-2016 End: 06-11-2016 Pacer Clinic Pacer Clinic [facility] Work Phone: Start: 02-06-2016 End: 02-21-2016 *Hepatic Function Panel *Hepatic Function Panel [facility] Work Phone: Start: 02-06-2016 End: 02-21-2016 Lipid panel [AGGREGATE] *Lipid Profile CC PCP [facility] Work Phone: Start: 02-06-2016 End: 02-21-2016 *Hepatic Function Panel *Hepatic Function Panel [facility] Work Phone: Start: 02-06-2016 End: 02-21-2016 Lipid panel [AGGREGATE] *Lipid Profile CC PCP [facility] Work Phone: Start: 12-19-2015 End: 06-11-2016 Follow Up Appt 3 months Follow Up Appt 3 months [facility] Work Phone: Start: 12-19-2015 End: 12-19-2015 Follow Up Appt 6 months Follow Up Appt 6 months [facility] Work Phone: Start: 12-19-2015 End: 12-19-2015 MMM MMM [facility] Work Phone: Start: 12-19-2015 End: 06-11-2016 Pacer [facility] Pacer [facility] Work Phone: Start: 12-19-2015 End: 06-11-2016 Follow Up Appt 3 months Follow Up Appt 3 months [facility] Work Phone: Start: 12-19-2015 End: 12-19-2015 Follow Up Appt 6 months Follow Up Appt 6 months [facility] Work Phone: Start: 12-19-2015 End: 12-19-2015 MMM MMM [facility] Work Phone: Start: 12-19-2015 End: 06-11-2016 Pacer Clinic Pacer Clinic [facility] Work Phone: Start: 09-04-2015 End: 06-11-2016 Follow Up Appt 3 months Follow Up Appt 3 months [facility] Work Phone: Start: 09-04-2015 [...] Lipid panel [AGGREGATE] *Lipid Profile CC PCP [facility] Work Phone: Start: 07-14-2015 End: 08-07-2015 *Hepatic Function Panel *Hepatic Function Panel [facility] Work Phone: Start: 07-14-2015 End: 08-07-2015 Lipid panel [AGGREGATE] *Lipid Profile CC PCP [facility] Work Phone: Start: 06-20-2015 End: 06-20-2015 *BMP *BMP [facility] Work Phone: Start: 06-20-2015 End: 06-20-2015 *CBC with Differential *CBC with Differential [facility] Work Phone: Start: 06-20-2015 End: 06-20-2015 WINE MANAGER WINE MANAGER [facility] Work Phone: Start: 06-20-2015 End: 06-20-2015 Ecg routine ecg w/least 12 lds w/i&r EKG (In office) [facility] Work Phone: Start: 06-20-2015 End: 06-20-2015 Follow Up Appt 6 months Follow Up Appt 6 months [facility] Work Phone: Start: 06-20-2015 End: 06-20-2015 Nuclear stress test -Lexiscan Nuclear stress test -Lexiscan [facility] Work Phone: Start: 06-20-2015 End: 06-20-2015 *BMP *BMP [facility] Work Phone: Start: 06-20-2015 End: 06-20-2015 *CBC with Differential *CBC with Differential [facility] Work Phone: Start: 06-20-2015 End: 06-20-2015 WINE MANAGER WINE MANAGER [facility] Work Phone: Start: 06-20-2015 End: 06-20-2015 Electrocardiogram, complete EKG (In office) [facility] Work Phone: Start: 06-20-2015 End: 06-20-2015 Follow Up Appt 6 months Follow Up Appt 6 months [facility] Work Phone: Start: 06-20-2015 End: 06-20-2015 Nuclear stress test -Lexiscan Nuclear stress test -Lexiscan [facility] Work Phone: Start: 05-30-2015 End: 06-13-2015 Follow Up Appt 3 months Follow Up Appt 3 months [facility] Work Phone: Start: 05-30-2015 End: 06-13-2015 Pacer Clinic Pacer Clinic [facility] Work Phone: Start: 05-30-2015 End: 06-13-2015 Follow Up Appt 3 months Follow Up Appt 3 months [facility] Work Phone: Start: 05-30-2015 End: 06-13-2015 Pacer Clinic Pacer Clinic [facility] Work Phone: Start: 02-28-2015 End: 06-13-2015 Follow Up Appt 3 months Follow Up Appt 3 months [facility] Work Phone: Start: 02-28-2015 End: 06-13-2015 Pacer Clinic Pacer Clinic [facility] Work Phone: Start: 02-28-2015 End: 06-13-2015 Follow Up Appt 3 months Follow Up Appt 3 months [facility] Work Phone: Start: 02-28-2015 [...] Phone: Start: 12-20-2014 End: 12-20-2014 MMM MMM [facility] Work Phone: Start: 12-20-2014 End: 12-20-2014 Follow Up Appt 6 months Follow Up Appt 6 months [facility] Work Phone: Start: 12-20-2014 End: 12-20-2014 MMM MMM [facility] Work Phone: Start: 11-21-2014 End: 06-13-2015 Follow Up Appt 3 months Follow Up Appt 3 months [facility] Work Phone: Start: 11-21-2014 End: 06-13-2015 Pacer Clinic Pacer Clinic [facility] Work Phone: Start: 11-21-2014 End: 06-13-2015 Follow Up Appt 3 months Follow Up Appt 3 months [facility] Work Phone: Start: 11-21-2014 End: 06-13-2015 Pacer Clinic Pacer Clinic [facility] Work Phone: Start: 08-19-2014 End: [...] 06-13-2015 Pacer Clinic [facility] Work Phone: Start: 06-13-2014 End: 06-13-2014 *Hepatic Function Panel *Hepatic Function Panel [facility] Work Phone: Start: 06-13-2014 End: 06-13-2014 WINE MANAGER [facility] Work Phone: Start: 06-13-2014 End: 06-13-2014 Ecg routine ecg w/least 12 lds w/i&r EKG (In office) [facility] Work Phone: Start: 06-13-2014 End: 06-13-2014 Follow Up Appt 6 months Follow Up Appt 6 months [facility] Work Phone: Start: 06-13-2014 End: 06-13-2014 Lipid panel [AGGREGATE] *Lipid Profile CC PCP [facility] Work Phone: Start: 06-13-2014 End: 06-13-2014 *Hepatic Function Panel *Hepatic Function Panel [facility] Work Phone: Start: 06-13-2014 End: 06-13-2014 WINE MANAGER WINE MANAGER [facility] Work Phone: Start: 06-13-2014 End: 06-13-2014 Electrocardiogram, [...] 3 months Follow Up Appt 3 months [facility] Work Phone: Start: 05-18-2014 End: 05-31-2014 Pacer Clinic Pacer Clinic [facility] Work Phone: Start: 05-18-2014 End: 05-31-2014 Follow Up Appt 3 months Follow Up Appt 3 months [facility] Work Phone: Start: 05-18-2014 End: 05-31-2014 Pacer Clinic Pacer Clinic [facility] Work Phone: Start: 02-14-2014 End: 05-31-2014 Follow Up Appt 3 months Follow Up Appt 3 months [facility] Work Phone: Start: 02-14-2014 End: 05-31-2014 Pacer Clinic Pacer Clinic [facility] Work Phone: Start: 02-14-2014 End: 05-31-2014 Follow Up Appt 3 months Follow Up Appt 3 months [facility] Work Phone: Start: 02-14-2014 End: 05-31-2014 Pacer Clinic Pacer Clinic [facility] Work Phone: Start: 12-14-2013 End: 12-14-2013 Follow Up Appt 6 months Follow Up Appt 6 months [facility] Work Phone: Start: 12-14-2013 End: 12-14-2013 MMM MMM [facility] Work Phone: Start: 12-14-2013 End: [...] Lipid panel [AGGREGATE] *Lipid Profile CC PCP [facility] Work Phone: Start: 11-16-2013 End: 05-31-2014 Follow Up Appt 3 months Follow Up Appt 3 months [facility] Work Phone: Start: 11-16-2013 End: 05-31-2014 Pacer Clinic Pacer Clinic [facility] Work Phone: Start: 11-16-2013 End: 05-31-2014 Follow Up Appt 3 months Follow Up Appt 3 months [facility] Work Phone: Start: 11-16-2013 End: 05-31-2014 Pacer Clinic Pacer Clinic [facility] Work Phone: Start: 08-16-2013 End: 12-14-2013 Follow Up Appt 3 months Follow Up Appt 3 months [facility] Work Phone: Start: 08-16-2013 End: 12-14-2013 Pacer Clinic Pacer Clinic [facility] Work Phone: Start: 08-16-2013 End: 12-14-2013 Follow Up Appt 3 months Follow Up Appt 3 months [facility] Work Phone: Start: 08-16-2013 End: 12-14-2013 Pacer Clinic Pacer Clinic [facility] Work Phone: Start: 06-15-2013 End: 06-16-2013 *Hepatic Function Panel *Hepatic Function Panel [facility] Work Phone: Start: 06-15-2013 End: 06-15-2013 WINE MANAGER WINE MANAGER [facility] Work Phone: Start: 06-15-2013 End: 06-15-2013 Follow Up Appt 6 months Follow Up Appt 6 months [facility] Work Phone: Start: 06-15-2013 End: 06-16-2013 Lipid panel [AGGREGATE] *Lipid Profile CC PCP [facility] Work Phone: Start: 06-15-2013 End: 06-16-2013 *Hepatic Function Panel *Hepatic Function Panel [facility] Work Phone: Start: 06-15-2013 End: 06-15-2013 WINE MANAGER WINE MANAGER [facility] Work Phone: Start: 06-15-2013 End: 06-15-2013 Follow Up Appt 6 months Follow Up Appt 6 months [facility] Work Phone: Start: 06-15-2013 End: 06-16-2013 Lipid panel [AGGREGATE] *Lipid Profile CC PCP [facility] Work Phone: Start: 05-14-2013 End: 06-03-2013 Follow Up Appt 3 months Follow Up Appt 3 months [facility] Work Phone: Start: 05-14-2013 End: 06-03-2013 Pacer Clinic Pacer Clinic [facility] Work Phone: Start: 05-14-2013 End: 06-03-2013 Follow Up Appt 3 months Follow Up Appt 3 months [facility] Work Phone: Start: 05-14-2013 End: 06-03-2013 Pacer Clinic Pacer Clinic [facility] Work Phone: Start: 02-10-2013 End: 06-03-2013 Follow Up Appt 3 months Follow Up Appt 3 months [facility] Work Phone: Start: 02-10-2013 End: 06-03-2013 Pacer Clinic Pacer Clinic [facility] Work Phone: Start: 02-10-2013 End: 06-03-2013 Follow Up Appt 3 months Follow Up Appt 3 months [facility] Work Phone: Start: 02-10-2013 End: 06-03-2013 Pacer Clinic Pacer Clinic [facility] Work Phone: Start: 12-17-2012 End: 12-17-2012 Follow Up Appt 6 months Follow Up Appt 6 months [facility] Work Phone: Start: 12-17-2012 End: 12-17-2012 MMM MMM [facility] Work Phone: Start: 12-17-2012 End: 12-17-2012 Follow Up Appt 6 months Follow Up Appt 6 months [facility] Work Phone: Start: 12-17-2012 End: 12-17-2012 MMM MMM [facility] Work Phone: Start: 11-11-2012 End: 06-16-2013 *Hepatic Function Panel *Hepatic Function Panel [facility] Work Phone: Start: 11-11-2012 End: 06-16-2013 Lipid panel [AGGREGATE] *Lipid Profile [facility] Work Phone: Start: 11-11-2012 End: 06-16-2013 *Hepatic Function Panel *Hepatic Function Panel [facility] Work Phone: Start: 11-11-2012 End: 06-16-2013 Lipid panel [AGGREGATE] *Lipid Profile [facility] Work Phone: Start: 11-10-2012 End: 06-03-2013 Follow Up Appt 3 months Follow Up Appt 3 months [facility] Work Phone: Start: 11-10-2012 [...] 6 months Follow Up Appt 6 months [facility] Work Phone: Start: 06-18-2012 End: 06-18-2012 Device Interrogation Device Interrogation [facility] Work Phone: Start: 06-18-2012 End: 06-18-2012 Follow Up Appt 6 months Follow Up Appt 6 months [facility] Work Phone: Start: 06-03-2012 End: 06-03-2012 *Hepatic Function Panel *Hepatic Function Panel [facility] Work Phone: Start: 06-03-2012 End: 06-03-2012 Echocardiography Echocardiogram (complete) [facility] Work Phone: Start: 06-03-2012 End: 06-03-2012 Follow Up Appt 6 months Follow Up Appt 6 months [facility] Work Phone: Start: 06-03-2012 End: 06-10-2012 Lipid panel [AGGREGATE] *Lipid Profile [facility] Work Phone: Start: 06-03-2012 End: 06-03-2012 *Hepatic Function Panel *Hepatic Function Panel [facility] Work Phone: Start: 06-03-2012 End: 06-03-2012 Echocardiography Echocardiogram (complete) [facility] Work Phone: Start: 06-03-2012 End: 06-03-2012 Follow Up Appt 6 months Follow Up Appt 6 months [facility] Work Phone: Start: 06-03-2012 End: 06-10-2012 Lipid panel [AGGREGATE] *Lipid Profile [facility] Work Phone: Start: 10-11-2011 End: 06-03-2012 *Hepatic Function Panel *Hepatic Function Panel [facility] Work Phone: Start: 10-11-2011 End: 10-11-2011 Follow Up Appt 6 months Follow Up Appt 6 months [facility] Work Phone: Start: 10-11-2011 End: 06-03-2012 Lipid panel [AGGREGATE] *Lipid Profile [facility] Work Phone: Start: 10-11-2011 End: 06-03-2012 *Hepatic Function Panel *Hepatic Function Panel [facility] Work Phone: Start: 10-11-2011 End: 10-11-2011 Follow Up Appt 6 months Follow Up Appt 6 months [facility] Work Phone: Start: 10-11-2011 End: 06-03-2012 Lipid panel [AGGREGATE] *Lipid Profile [facility] Work Phone: Patient Education [facility] Work Phone: Patient referral [facility] Work Phone: Immunizations Immunization Date Immunization Notes Care Provider Fa cility 10-12-2020 Covid (Pfizer) No Primary Ca re Physician [facility] 09-21-2020 Covid (Pfizer) No Primary Ca re Physician [facility] Payers Date Payer Category Payer Self-pay [id number] 2012 Medicare [id number] Medicare [id number] Unknown [id number] 2.16.8 [id number] Unknown [id number] 2.16.8 [id number] Unknown [id number] 2.16.8 [id number] Unknown [id number] 2.16.8 [id number] Unknown [id number] 2.16.8 [id number] Unknown [id number] 2.16.8 [id number] Unknown [id number] 2.16.8 [id number] Unknown [id number] 2.16.8 [id number] Unknown [id number] 2.16.8 [id number] Unknown [id number] 2.16.8 [id number] Unknown [id number] 2.16.8 [id number] Unknown [id number] 2.16.8 [id number] Unknown [id number] 2.16.8 [id number] Unknown [id number] 2.16.8 [id number] Social History Date Type Detail Facility Start: [facility]23 [facility] Start: 1940 Sex Assigned At Male W [facility] Start: 07-17-2023 End: 02-08-2025 Tobacco smoking status NHIS Never smoked tobacco (finding) [facility] Goals Date Patient Goal Desired Activity /State Functional Status Date Assessment Result Facility 02-10-2025 Functional status Ambulates [facility] Work Phone: Mental Status Date Assessment Result Facility 02-10-2025 Cognitive function Voice/Name;Touch/Shaki ng [facility] Work Phone: 02-08-2025 Cognitive function Level Of Cons ciousness Follows Commands;Drowsy [facility] Work Phone: Clinical Notes 07-28-2009 to 02-10-2025 Note Date & Type Note Facility 02-10-2025 Discharge summary [facility] 02-10-2025 Discharge summary [facility] 02-10-2025 Hospital Discharg e instructions Additional Instructions Date of Discharge: 02/10/25 [facility] Work Phone: 02-10-2025 Discharge summary Note Date/Time February 10, 2025 3:37pm [facility] Medical Records Department [address] [place] [address] Discharge Summary 02/10/25 1105 MR#: [id number] Acct: [id number] Name: SOPHIA CORTES Rep #:[id number] : 1940 84 From: Isadora Arndt MD PCP: Care Physician,No Primary Status :ADM MARCELA Location: [place] [address] Providers Date of Admission: 02/08/25 Date of [...] his sister was his medical power of patent prosecution attorney. He came back to the ED [...] 02/09/25 08:40 RMA (Rec: 02/09/25 08:40 RMA [id number]) Nutrition Malnutrition Evidence of Yes Malnutrition Exists [...] RDW Std Deviation 42.1, RDW Coeff of Nvea 12.6, Plt Count 107 L, MPV 11.6, Immature Gran % (Auto) 0.700, Neut % (Auto) 66.9, Lymph % (Auto) 20.9, Mcintosh % (Auto) 10.1 H, Eos % (Auto) [...] as described. Small left hydrocele. Reading Location: [id number]/ Instructions Discharge Activity: Return to Normal Activity [...] in before D/C Order can be placed): [facility] Facility Charges/Coding Visit Charges Inpatient E&M: 83403 Disch Hosp >30min 02/10/25 1610 <Electronically signed by Isadora Arndt MD> Cosigner Signature (if applicable): CC: Dr. Isadora Arndt MD; No Primary Care Physician~ Signed [facility] Work Phone: 1(222) 178-981407-31-2025 [facility] Medical Records Department [address] [place] [id number] Discharge Summary 02/10/25 1105 MR#: [id number] Acct: [id number] Name: SOPHIA CORTES Rep #: [id number] : 1940 [id number] From: Isadora Arndt MD PCP: Care Physician,No Primary Status:ADM MARCELA Location: [place] [address] Providers Date of Admission: 02/08/25 Date of [...] his sister was his medical power of patent prosecution attorney. He came back to the ED [...] normal respiratory effort, nor (more content not included)...[facility]07-30-2025 Progress note Author Isadora Arndt [facility] Note Date/Time February 09, 2025 4:26 pm [facility] Medical Records Department [address] [place] [address] Progress Note 02/09/25 0936 MR#: [id number] Acct: [id number] Name: SOPHIA CORTES Rep #:[id number] : 1940 84 From: Isadora Arndt MD PCP: Care Physician,No Primary Status :ADM MARCELA Location: [place] [address] Subjective Subjective Patient seen and examined. HE [...] 02/09/25 08:40 RMA (Rec: 02/09/25 08:40 RMA [id number]) Nutrition Malnutrition Evidence of Yes Malnutrition Exists [...] (Auto) 74.4 H, Lymph % (Auto) 13.6 L,Mcintosh % (Auto) 10.7 H, Eos % (Auto) [...] Clarity Clear, Urine pH 5.0, Ur Specific Taylor 1.025, Urine Protein 30 H, Urine Glucose [...] IMPRESSION: No acute intracranial pathology. [facility] Chest X-Ray 02/08/25 12:10 IMPRESSION: No acute cardiopulmonary process. Reading Location: [facility] Physical Exam Const alert, oriented [...] no intubation Charges/Coding Visit Charges Inpatient E&M: 53716 Subs Hosp L2 02/09/25 1431 <Electronically signed [...] Signature (if applicable): Date cc: ~* Signed [facility] Work Phone: 1(124) 976-783607-30-2025 Progress note [facility] Medical Records Department [address] [place] [address] Progress Note 02/09/25 0936 MR#: [id number] Acct: [id number] Name: SOPHIA CORTES Rep #:[id number] : 1940 84 From: Isadora Arndt MD PCP: Care Physician,No Primary Status :ADM MARCELA [facility] Subjective Subjective Patient seen and examined. HE [...] 02/09/25 08:40 RMA (Rec: 02/09/25 08:40 RMA [id number]) Nutrition Malnutrition Evidence of Yes Malnutrition Exists [...] (Auto) 74.4 H, Lymph % (Auto) 13.6 L,Mcintosh % (Auto) 10.7 H, Eos % (Auto) [...] Clarity Clear, Urine pH 5.0, Ur Specific Taylor 1.025, Urine Protein 30 H, Urine Glucose [...] IMPRESSION: No acute cardiopulmonary process. Reading Location: [facility] Physical Exam Const alert, oriented [...] no intubation Charges/Coding Visit Charges Inpatient E&M: 62112 Subs Hosp L2 02/09/25 1431 Isadora Arndt MD Cosigner Signature (if applicable): CC: ~ Signed ADDENDUM by Dr. Isadora Arndt MD on 02/09/25 at 1626 Addendum Scrotal ultrasound showed large right hydrocele which is loculated with overlying scrotal skin thickening measuring 7 mm and a small left hydrocele. Will refer to follow-up with urology on outpatientbasis. 02/09/25 1626 m > Date _ Isadora Arndt MD Cosigner Signature (if applicable): Date cc: ~* Signed [facility]07-30-2025 Radiology Diagnostic study note [facility] Imaging Services [address] [place] [address] Testicular with Arterial Flow MR#: [id number] Acct: [id number] Name: SOPHIA CORTES Rep #: [id number] : 1940 M 84 From: Tony Albarado MD PCP: Care Physician,No Primary Status: ADM MARCELA Study:Testicular with Arterial Flow Date of E xam: 02/09/25 Exam# [id number] Ordering Dr: Greta Arndt MD PROCEDURE: TESTICULAR [...] as described. Small left hydrocele. Reading Location: [facility] CC: Dr. Isadora Arndt MD; No Primary Care Physician ~ Public Relations Representative: Signed [facility]07-29-2025 History and physical note Author Ajith [facility] Note Date/Time February 08, 2025 3:36 pm [facility] Medical Records Department [address] [place] [address] H&P Exam - Hospitalist 02/08/25 1345 MR#: [id number] Acct: [id number] Name: SOPHIA CORTES Rep #:[id number] : 1940 84 From: Ajith pineda DO PCP: Care Physician,No Primary Status :ADM MARCELA [place] [facility] - General General Date of Admission: 02/08/25 Date of Service: 02/08/25 Chief Complaint: Failure to thrive HPI Narrative SOPHIA CORTES, is a 84 M who presented to [facility] ED on 02/08/2025 with adult failure to thrive. Patient lives at home alone. He was recently seen in the ED here on 01/23 for suicidal ideation and was admitted to apsychiatric facility for this. Has history of dementia and sister is medical power of patent prosecution attorney. Medical history otherwise significant for CAD [...] currently. Will be admitted for further management. 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 Reading Location: [facility] Assessment & Plan Assessment/Plan (1) Adult failure to thrive: (2) Dementia: (3) Weakness: PLAN: Plan Patient is an 84-year-old male who presented to [facility] ED on02/08/2025 with adult failure to thrive. 1. Adult failure to thrive in setting of dementia ? Admit under observation status to [facility]. PT/OT/case management consulted. Nutrition consulted given [...] it all". Required inpatient psychiatric hospitalization at [facility] and was apparently started on Risperdal [...] atrial flutter ? History of anterior wall ME in 2009 requiring stenting. Had resultant ischemic [...] mild creatinine elevation as above. Is on wohxhdawivop05 mg, will reduce to 40 mg given age greater than 75. Continue home aspirin. DVT prophylaxis: Lovenox CODE STATUS: DNR CCA, DNI. This was confirmed with the patient's sister who is patient's medical power of patent prosecution attorney. She notes that this was patient's expressed wishes in the past. Expected disposition: TBD Total clinical time spent by myself addressing the patient's medical issues, reviewing all the data, and collaborating with patient's care team: 75 minutes. Charges/Coding Visit Charges Inpatient E&M: 90496 Init Hosp L3 02/08/25 1536 <Electronically signed by Ajith Zimmer DO> Cosigner Signature (if applicable): CC: Dr. Ajith Zimmer DO; No Primary Care Physician~ Signed [facility] Work Phone: 1(929) 129-925707-29-2025 Discharge summary Author Michael Allen [facility] Note Date/Time February 08, 2025 3:12 pm [facility] Medical Records Department [address] [place] [address] Emergency Department Summary 02/08/25 MR#: [id number] Acct: [id number] Name: SOPHIA CORTES Rep #:[id number] : 1940 84 From: Michael Allen DO PCP: Care Physician,No Primary Status :ADM MARCELA Location: [place] [address] HPI History of Present Illness Chief Complaint: General Illness Detail of Chief Complaint: Failure to thrive and needing correction placement Informant: patient and family Narrative Narrative: Patient presents to the emergency department with his sister. He apparently is not doing well at home and lives alone. She feels he needs correction placement. Patient recently admitted to a psychiatric facility for suicidal ideation on January 23. Patient has history of some dementia. Sister has medical power of patent prosecution attorney for him. He is not eating and drinking normally. He is answering some questions but not really having conversations. Sister does not feel he can care for himself. He developed a slight cough a few days ago. [facility] Medical History (Updated 02/08/25 @ 13:[address] 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 Reading Location: [facility] Chest X-Ray 02/08/25 12:10 IMPRESSION: No acute cardiopulmonary process. Reading Location: [facility] 1 view chest x-ray obtained [...] Primary [Primary Care Provider] - Print Language: Martiniquais Disposition Disposition: Acute Care Hospital [facility] What to do if you have Problems For any increased pain, shortness of breath, bleeding, nausea or vomiting, chestpain, or any unexpected problems, contact your Primary Care Provider. Call [facility] ([phone]) or report to the closest Emergency Room. Call 911 if necessary. 02/08/25 1512 <Electronically signed by Michael Allen DO> Cosigner Signature (if applicable): CC: No Primary Care Physician ~ Signed [facility] Work Phone: 1(933) 604-979407-29-2025 History and physical note [facility] Medical Records Department [address] [place] [address] H&P Exam - Hospitalist 02/08/25 1345 MR#: [id number] Acct: [id number] Name: SOPHIA CORTES Rep #:[id number] : 1940 84 From: Ajith pineda DO PCP: Care Physician,No Primary Status :ADM MARCELA Location: [address] [facility] - General General Date of Admission: 02/08/25 Date of Service: 02/08/25 Chief Complaint: Failure to thrive HPI Narrative SOPHIA CORTES, is a 84 M who presented to [facility] ED on 02/08/2025 with adult failure to thrive. Patient lives at home alone. He was recently seen in the ED here on 01/23 for suicidal ideation and was admitted to apsychiatric facility for this. Has history of dementia and sister is medical power of patent prosecution attorney. Medical history otherwise significant for CAD [...] currently. Will be admitted for further management. 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 [facility] Assessment & Plan Assessment/Plan (1) Adult failure to thrive: (2) Dementia: (3) Weakness: PLAN: Plan Patient is an 84-year-old male who presented to [facility] ED on02/08/2025 with adult failure to thrive. 1. Adult failure to thrive in setting of dementia ? Admit under observation status to [facility]. PT/OT/case management consulted. Nutrition consulted given [...] it all". Required inpatient psychiatric hospitalization at [facility] andwas apparently started on Risperdal 1 [...] atrial flutter ? History of anterior wall ME in 2009 requiring stenting. Had resultant ischemic [...] mild creatinine elevation as above. Is on pktkueukaltc19 mg, will reduce to 40 mg givenage greater than 75. Continue home aspirin. DVT prophylaxis: Lovenox CODE STATUS: DNR CCA, DNI. This was confirmed with the patient's sister who is patient's medical power of patent prosecution attorney. She notes that this was patient's expressed wishes in the past. Expected disposition: TBD Total clinical time spent by myself addressing the patient's medical issues, reviewing all the data, and collaborating with patient's care team: 75 minutes. Charges/Coding Visit Charges Inpatient E&M: 19079 Init Hosp L3 02/08/25 1535 Cosigner Signature (if applicable): CC: Dr. Ajith Zimmer DO; No Primary Care Physician~ Signed [facility]07-29-2025 Discharge summary [facility] Medical Records Department [address] [place] [address] Emergency Department Summary 02/08/25 MR#: [id number] Acct: [id number] Name: SOPHIA CORTES Rep #:[id number] : 1940 84 From: Michael Allen DO PCP: Care Physician,No Primary Status :ADM MARCELA Location: [place] [address] HPI History of Present Illness Chief Complaint: General Illness Detail of Chief Complaint: Failure to thrive and needing correction placement Informant: patient and family Narrative Narrative: Patient presents to the emergency department with his sister. He apparently is not doing well at home and lives alone. She feels he needs correction placement. Patient recently admitted to a psychiatric facility for suicidal ideation on January 23. Patient has history of some dementia. Sister has medical power of patent prosecution attorney for him. He is not eating and drinking normally. He is answering some questions but not really having conversations. Sister does not feel he can care for himself. He developed a slight cough a few days ago. [facility] Medical History (Updated 02/08/25 @ 13:[address] 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 Reading [facility] Chest X-Ray 02/08/25 12:10 IMPRESSION: No acute cardiopulmonary process. Reading [facility] 1 view chest x-ray obtained interpreted by [...] Primary [Primary Care Provider] - Print Language: Martiniquais Disposition Disposition: Acute Care Hospital [facility] What to do if you have Problems For any increased pain, shortness of breath, bleeding, nausea or vomiting, chestpain, or any unexpected problems, contact your Primary Care Provider. Call [facility] ([phone]) or report tothe closest Emergency Room. Call 911 if necessary. 02/08/25 1512 Cosigner Signature (if applicable): CC: No Primary Care Physician ~ Signed [facility]07-29-2025 Radiology Diagnostic study note [facility] Imaging Services [address], [place] [address] Brain/Head without Contrast MR#: [id number] Acct: [id number] Name: SOPHIA CORTES Rep #: [id number] : 1940 M 84 From: Richard Sullivan MD PCP: Care Physician,No Primary Status: REG ER Study:Brain/Head without Contrast Date of Exa m: 02/08/25 Exam# [id number] Ordering Dr: Briana Allen DO EXAM: NONCONTRAST [...] Allen DO; No Primary Care Physician ~ Public Relations Representative: Signed [facility]07-29-2025 Radiology Diagnostic study note [facility] Imaging Services [address] [place] [id number] Chest 1 View (Portable) MR#: [id number] Acct: [id number] Name: SOPHIA CORTES Rep #: [id number] : 1940 M 84 From: Odalys Lindsay MD PCP: Care Physician,No Primary Status: REG ER Study:Chest 1 View (Portable) Date of Exam: 02/08/25 Exam# [id number] Ordering Dr: Briana Allen DO EXAM: XR [...] IMPRESSION: No acute cardiopulmonary process. Reading Location: [facility] CC: Dr. Michael Allen DO; No Primary Care Physician ~ Public Relations Representative: Signed [facility]07-13-2025 Discharge summary Author Henry Florentino [facility] Note Date/Time January 23, 2025 8:06 am [facility] Medical Records Department [address] [place] [address] Emergency Department Summary 01/23/25 MR#: [id number] Acct: [id number] Name: SOPHIA CORTES Rep #:[id number] : 1940 84 From: Henry sanders DO [...] oriented, grossly intact, sensation intact Psych: Uncooperative [facility] Medical History (Updated 05/10/24 @ 15:22 by Marcelino Arizmendi SEISMOLOGY TECHNICAL OFFICER, SEISMOLOGY TECHNICAL OFFICER-C) 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 Patient was accepted to [facility]. Will await UA results prior to arrival. [...] % (Auto) 58.0 Lymph % (Auto) 31.2 Mcintosh % (Auto) 8.7 Eos % (Auto) 1.7 [...] 02:00 IMPRESSION: NO ACUTE FINDINGS Reading Location: [place] [address] Discharge Plan Triage Chief Complaint: Suicidal ED [...] Primary Referrals: NOT,DEFINED [Non-Staff] - Print Language: Martiniquais What to do if you have Problems For any increased pain, shortness of breath, bleeding, nausea or vomiting, chestpain, or any unexpected problems, contact your Primary Care Provider. Call [facility] ([phone]) or report to the closest Emergency Room. Call 911 if necessary. 01/23/25 0650 <Electronically signed by Henry Florentino DO> Cosigner Signature (if applicable): CC: No Primary Care Physician ~ Signed [facility] Work Phone: 1(136) 610-292707-13-2025 Discharge summary [facility] Medical Records Department [address] [place] [address] Emergency Department Summary 01/23/25 MR#: [id number] Acct: [id number] Name: SOPHIA CORTES Rep #:[id number] : 1940 84 From: Henry sanders DO [...] oriented, grossly intact, sensation intact Psych: Uncooperative [facility] Medical History (Updated 05/10/24 @ 15:22 by Marcelino Arizmendi SEISMOLOGY TECHNICAL OFFICER, SEISMOLOGY TECHNICAL OFFICER-C) 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) LV (left ventricular) mural thrombus Atherosclerosis of [place] coronary artery of [place] heart without angina pectoris (07/28/09) Ischemic cardiomyopathy [...] % (Auto) 58.0 Lymph % (Auto) 31.2 Mcintosh % (Auto) 8.7 Eos % (Auto) 1.7 [...] 02:00 IMPRESSION: NO ACUTE FINDINGS Reading Location: [id number] Discharge Plan Triage Chief Complaint: Suicidal ED [...] Primary Referrals: NOT,DEFINED [Non-Staff] - Print Language: Martiniquais What to do if you have Problems For any increased pain, shortness of breath, bleeding, nausea or vomiting, chestpain, or any unexpected problems, contact your Primary Care Provider. Call [facility] ([phone]) or report tothe closest Emergency Room. Call 911 if necessary. 01/23/25 0650 Cosigner Signature (if applicable): CC: No Primary Care Physician ~ Signed [facility]07-13-2025 Radiology Diagnostic study note [facility] [address] [facility] [facility] [place] [address] Brain/Head without Contrast MR#: [id number] Acct: [id number] Name: SOPHIA CORTES Rep #: [id number] : 1940 M 84 From: Ricky Alvarez MD PCP: Care Physician,No Primary Status: REG ER Study:Brain/Head without Contrast Date of Exa m: 01/23/25 Exam# [id number] Ordering Dr: Henry Kirkpatrick DO PROCEDURE: BRAIN/HEAD [...] Contrast IMPRESSION: NO ACUTE FINDINGS Reading Location: [id number] CC: Dr. Henry Florentino DO; No Primary Care Physician ~ Public Relations Representative: Signed [facility]05-21-2025 Procedure [facility] [address] [place], [place] [address] Pacemaker Check Date of Service: 12/01/241713 MR#: [id number] Acct: [id number] Name: SOPHIA CORTES Rep #: [id number] : 1940 From: Toya burciaga Age/Sex: 83/M Location: [facility] [place] Status: Signed Billing Codes ICD Device Billin ICD Dev Prog Eval, Dual Assessment and Plan Assessment and Plan (1) Ischemic cardiomyopathy: Status: Chronic (2) Presence of automatic implantable cardioverter-defibrillator: Status: Chronic Comment: [place] Energen ICD Dual Chamber (3) NSVT (nonsustained ventricular tachycardia): Status: Chronic 12/01/241713 > Date _ Toya Herrera Lisa Signature: Date (if applicable) CC: ~ [facility]05-21-2025 Evaluation note* Diagnosis Onset Date Resolution Status [...] 01, 2024 1:56pm Ischemic cardiomyopathy chronic M 2024 1:56pm Memory deficit chronic December 01, 2024 1:56pm NSVT (nonsustained ventricular tachycardia) chronic November 1:56pm Paroxysmal atrial flutter chronic December 01, 2024 1:56pm 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, 2012 chronic Ma y 2024 1:56pm [facility] Work Phone: 1(705) 138-431105-21-2025 Evaluation note* Diagnosis Onset Date Resolution Status [...] cardioverter-defibrillator July 23, 2012 chronic Ma 2024 1:56pm Adult failure to thrive acute J milli 2024 1:45pm Dementia acute February 08 1:45pm Weakness acute February 08 1:45pm Memory deficit chronic February 08, 2025 1:45pm [facility] Work Phone: 1([phone]) 738-295505-25-2019 Discharge summary Author Isadora [facility] Note Date/Time February 10, 2025 3:37 pm [facility] Medical Records Department [address] [place] [address] Transfer to [facility] MR#: [id number] Acct: [id number] Name: SOPHIA CORTES Rep #:[id number] : 1940 84 From: Isadora Arndt MD PCP: Care Physician,No Primary Status :ADM MARCELA Certification of patient admission REQUIRED AT TIME OF ADMISSION. I CERTIFY THAT [facility] SERVICES ARE REQUIRED TO BE GIVEN ON AN IN-PATIENT BASIS BECAUSE OF THE ABOVE NAMED PATIENT'S NEED FOR HALF-WAY CARE ON A CONTINUING BASIS FOR THE CONDITION(S) FOR WHICH HE/SHE WAS RECEIVING IN-PATIENT HOSPITAL SERVICES PRIOR TO HIS/HER TRANSFER TO THE [facility]. 02/10/25 1105<Electronically signed by Isadora Arndt MD> [...] in before D/C Order can be placed): [facility] 02/10/25 2235 <Electronically signed by Isadora Arndt MD> Cosigner Signature (if applicable): CC: Dr. 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 Work Phone: 1(153) 811-614701-10-2013 Evaluation note* Diagnosis Onset Date Resolution Status Paroxysmal atrial flutter ac [place] Ischemic cardiomyopathy human factors specialist mariah Presence of automatic implan table cardioverter-defibrillator July 23, 2012 chronic Essential hypertension acute Memory deficit acute NSVT (nonsustained ventricular tachycardia) acute Paroxysmal atrial flutter ac [place] Bradycardia chronic History of coronary artery stent placement July chronic HLD (hyperlipidemia) chronic Ischemic cardiomyopathy human factors specialist mariah Presence of automatic implan table cardioverter-defibrillator July 23, [address] [facility] Work Phone: 1(176) 983-293701-15-2010 Evaluation note* Diagnosis Onset Date Resolution Status [...] 23, 2012 chronic Ma y 2024 1:56pm [facility] Work Phone: Reason for referral (narrative)No reason for referral information availableSt. [facility] Work Phone: Chief Complaint and Reason for Visit Chief Complaint Pacer Check Remote 3 M FU/ Taylor Ruize at 1:30pm E-ORDER Reason for Visit Paroxysmal [...] Do you have a Healthcare Power of Digital Producer? No January 22, 2025 11:50pm Advance Directive Response Recorded Date/ Time Do you have a Healthcare Power of Digital Producer? No January 22, 2025 11:50pm Do you have a Healthcare Power of Digital Producer? No February 08, 2025 12:21pm Advance Directive Response Recorded Date/ Time Do you have a Healthcare Power of Digital Producer? No January 22, 2025 11:50pm Do you have a Healthcare Power of Digital Producer? No February 08, 2025 3:39pm Summary Purpose [...] 2024 Toya Herrera Attending Provider Active Start: Gwen león 2024 End: December 01, 2024 Team Status: Inactive Member Role Status Dates Marcelino Arizmendi SEISMOLOGY TECHNICAL OFFICER, SEISMOLOGY TECHNICAL OFFICER-C Attending Provider Active S tart: December 01, [...] Inactive Member Role Status Dates Marcelino Arizmendi SEISMOLOGY TECHNICAL OFFICER, SEISMOLOGY TECHNICAL OFFICER-C Attending Provider Active No Primary Care Physician Primary Care Provider, Refer ring Provider Active Team Status: Inactive Member Role Status Dates No Primary Care Physician Primary Care Provider Active Dr. Wolfgang Conde MD Attending Provider Active Team Status: Inactive Member Role Status Dates No Primary Care Physician Primary Care Provider Active Marcelino Arizmendi SEISMOLOGY TECHNICAL OFFICER, SEISMOLOGY TECHNICAL OFFICER-C Attending Provider, Referring Pro vider Active Team Status: Active Member Role Status Dates No Primary Care Physician Family Provider Active Team Status: Inactive Member Role Status Dates No Primary Care Physician Primary Care Provider, Refer ring Provider Active Toya Herrera Attending Provider Active Team Status: Inactive Member Role Status Dates No Primary Care Physician Primary Care Provider, Refer ring Provider Active Marcelino Arizmendi SEISMOLOGY TECHNICAL OFFICER, SEISMOLOGY TECHNICAL OFFICER-C Attending Provider Active Team Status: Active Member [...] Inactive Member Role/Relationship Status Dates Marcelino Arizmendi SEISMOLOGY TECHNICAL OFFICER, SEISMOLOGY TECHNICAL OFFICER-C Attending Provider Active S tart: December 01, [...] Start: February 09, 2025 Dr. Michael Allen , DO Emergency Provider Active S tart: February 09, 2025 Dr. Ajith Zimmer , DO Admit Provider Active Start: February 09, 2025 Dr. Ajith Zimmer , DO Other Provider Active Start: February 09, [...] , DO Admit Provider Active Start: February 10, 2025 Dr. Ajith Zimmer , DO Other Provider Active Start: February 10, [...] ized section and content) DATE CREATED AUTHOR 05/25/2025 [facility] FOR RECORDS PERTAINING TO PATIENTS WHO ARE [...] BE BASED ON THE PRIMARY CLINICAL RECORDS. [employer] provides no warranty or guarantee of the accuracy or completeness of information in this document.
[2025-06-01 08:59] LABS: Hematocrit 33.7 % (40-54); Hemoglobin 11.2 g/dL (13.0-16.5); Mean Corp Hgb Conc 33.2 g/dL (32-36); Mean Corpuscular Volume 99.1 fL (80-94); Mean Platelet Vol. 12.0 fl (6.2-12.0); Platelet Count 139 K/mm3 (150-450); RBC Distribution Width CV 12.3 % (11.6-14.6); RBC Distribution Width SD 44.9 fl (35.1-43.9); Red Blood Count 3.40 M/mm3 (4.6-6.2); White Blood Count 5.0 K/mm3 (4.4-11.0)
[2025-06-01 09:17] LABS: Anion Gap 7 (5-15); BUN 15 mg/dL (4-19); BUN/Creat Ratio 16.0 RATIO (10-20); Calcium,Total 8.5 mg/dL (7.6-11.0); Carbon Dioxide 26.2 mmol/L (21.0-32.0); Chloride 105 mmol/L (98-108); Glucose 92 mg/dL (70-99); Potassium 3.9 mmol/L (3.3-5.1)
== END ==
LOC: OLS.WCC 05:00
PROVIDERS: PCP Family Medicine; Visit Provider Family Medicine
DX: I10 Essential (primary) hypertension (principal); E78.5 Hyperlipidemia, unspecified
CPT/HCPCS: 36415; 80048; 85027

== ENCOUNTER → 2025-07-04 05:00 | Outpatient (REF) | payer MEDICARE, SELFPAY ==
--- OUTSIDE RECORDS SUMMARY | 2025-07-04 03:28 | XMS RPT_ITS | CCD ---
Author Organization [facility] Care Team Providers Care Rn Homecare Name Role Phone CHERYL Herrera, Gina Arteaga [...] Wolfgang Conde Attending Provider [phone] Roof PONY RIDE OPERATOR, PONY RIDE OPERATOR-C Marcelino Johnson Attending Provider Care Physician, No Primary Referring Provider Un available Care Physician, No Primary Primary Care Provider Unavailable Care Physician, No Primary Referring Provider Un available Toya Herrera Attending Provider Unavailable Roof PONY RIDE OPERATOR, PONY RIDE OPERATOR-C Marcelino Johnson Attending Provider Dr. Wolfgang Conde Attending Provider [phone] Wolfgang Conde Referring Provider [phone] Care Physician, No Primary Primary Care Provider Unavailable Care Physician, No Primary Referring Provider Un available Tyoa Herrera Attending Provider Unavailable Roof PONY RIDE OPERATOR-CMarcelino Attending Provider Dr. Wolfgang Conde MD Attending Provider [phone] Dr. Wolfgang Conde MD Referring Provider Care Physician, No Primary Primary Care Provider Unavailable Care Physician, No Primary Referring Provider Un available Dr. Henry Florentino DO Emergency Provider Chadd ALVA Dr. Henry Attending Provider Alejandro DO, Dr. Rodriguez Emergency Provider [phone] Goran ALVA, Dr. Canseco Admit Provider Goran ALVA, Dr. Canseco Attending Provider Goran ALVA, Dr. Canseco Other Provider Hair REZA, Dr. Isadora Tirado Attending Provider Hair REZA, Dr. Isadora Tirado Other Provider [phone] Marcelino Moreno Primary Care Unavailable Marcelino Moreno [...] Admitting Unavailable Isadora Arndt Consulting Unavailable Roof PONY RIDE OPERATOR, Marcelino Johnson Attending Unavailable Care Physician, No Primary Referring Unava ilable Care Physician, No Primary Primary Care Unava ilable Ajith Zimmer Attending Unavailable Roof PONY RIDE OPERATOR, Marcelino Johnson Attending Unavailable Care Physician, No Primary Referring Unava ilable Care Physician, No Primary Primary Care Unava ilable Care Physician, No Primary Primary Care Unava ilable Elton, Wolfgang Referring Unavailable EltonPetros layneril Attending Unavailable Elton, [place] Attending Unavailable Care Physician, No Primary Primary [...] TABS One tablet by mouth daily ASPIRIN [id number] Deepak Dawson MD Start: 11-20-2010 take 1 tablet by cydney th once daily ASPIRIN 81 MG TABS One tablet by mouth daily ASPIRIN [id number] Tricia Arteaga Jason Start: 11-20-2010 take 1 tablet by cydney th once daily ASPIRIN EC 81 MG TBEC One tablet by mouth daily ASPIRIN [id number] Jeimy Mendez RN carvedilol 3.125 mg oral [...] One tablet by mouth twice daily CARVEDILOL [id number] Wolfgang Conde MD donepezil hydrochloride 10 mg [...] hydrochloride 5 mg oral tablet (2 sources) X-vsnpaq-D-asparta te Receptor Antagonist Start: 02-08-2025 take 1 [...] One tablet by mouth daily ATORVASTATIN CALCIUM [id number] Wolfgang Conde MD clopidogrel 75 mg oral [...] One tablet by mouth daily CLOPIDOGREL BISULFATE [id number] Jeimy Huang PA-C lisinopril 10 mg oral [...] TABS One tablet by mouth daily LISINOPRIL [id number] Wolfgang Conde MD warfarin sodium 1 mg oral tablet (20 sources) Vitamin K Antagonist Start: 11-20-2010 End: 10-11-2011 take 1 tablet by mouth once daily in the evening, then take 2.5 tablets by mouth, then take 3.5 tablets by mouth COUMADIN 1 MG TABS 1 tablet by mouth every evening with a 2.5mg tablet to = 3.5 WARFARIN SODIUM [id number] Tricia M Jason Start: 11-20-2010 End: 10-11-2011 take 1 tablet by mouth once daily in the evening, then take 1 tablet by mouth COUMADIN 2.5 MG TABS 1 tablet by mouth every evening with a 1mg tablet to - 3.5 mg WARFARIN SODIUM [id number] Wolfgang Conde MD Problems Active Problems Problem [...] Onset: 07-23-2012 07-30-2012 Chronic Comment on above: [employer] En ergen ICD Dual Chamber Coronary atherosclerosis and other heart disease (20 sources) Coronary arteriosclerosis; Translations: [Coronary atherosclerosis] Onset: 07-28-2009 Resolved: 12-13-2015 11-20-2010 Chronic Comment on above: XGX-HSD-Ixgz and Mid LAD w/ Veriflex BMS 3.0 x 20 mm and Micro Public Relations Coordinator BMS 2.5 x 18 mm 07/28/09 Delirium, [...] 02-08-2025 Episodic Other aftercare (7 sources) Other group home (current) drug therapy; Translations: [Other group home (current) drug therapy] Onset: 11-20-2010 11-20-2010 Episodic [...] (4 sources) Long-term drug therapy; Translations: [Other bed bug exterminator (current) drug therapy] Onset: 11-20-2010 11-20-2010 Unclassified [...] )on 05-03-2025 BUN/CRE 21.8 RATIO High 05-02 [facility] Comment on above: Order Comment: 110.1 Performed By: #### L 500.2500, L100.0500 #### [facility] [place], [address] Calcium [Mass/Vol] 8.3 mg/dL Normal 7.6-11.0 [facility] Comment on above: Order Comment: 110.1 Performed By: #### L 500.2500, L100.0500 #### [facility] [address] [place], [address] Chloride [Moles/Vol] 105 mmol/L Normal 98-108 [facility] Comment on above: Order Comment: 110.1 Performed By: #### L 500.2500, L100.0500 #### [facility] [address] [place], [address] CO2 [Moles/Vol] 24.4 mmol/L Normal 21.0-32.0 [facility] Comment on above: Order Comment: 110.1 Performed By: #### L 500.2500, L100.0500 #### [facility] [address] [place], [address] Creatinine [Mass/Vol] 0.87 mg/dL Normal 0.70-1.20 [facility] Comment on above: Order Comment: 110.1 Performed By: #### L 500.2500, L100.0500 #### [facility] [address] [place], [address] GAP 8 Normal 5-15 [facility] Comment on above: Order Comment: 110.1 Performed By: #### L 500.2500, L100.0500 #### [facility] [address] [place], [address] GFR/1.73 sq M.predicted among non-blacks MDRD (S/P/Bld) [Vol rate/Area] 86 mL/min/{1.73_m2} Normal >60 [facility] Comment on above: Order Comment: 110.1 Result Comment: mL/m in/1.73m2 CKD-EPI Creatinine Equation (2020) Performed By: #### L 500.2500, L100.0500 #### [facility] [address] [place], [address] Glucose [Mass/Vol] 78 mg/dL Normal 70-99 [facility] Comment on above: Order Comment: 110.1 Performed By: #### L 500.2500, L100.0500 #### [facility] [address] [place], [address] Potassium [Moles/Vol] 4.0 mmol/L Normal 3.3-5.1 [facility] Comment on above: Order Comment: 110.1 Performed By: #### L 500.2500, L100.0500 #### [facility] [address] [place], [address] Sodium [Moles/Vol] 137 mmol/L Normal 133-145 [facility] Comment on above: Order Comment: 110.1 Performed By: #### L 500.2500, L100.0500 #### [facility] [address] [place], [address] Urea nitrogen [Mass/Vol] 19 mg/dL Normal 4-19 [facility] Comment on above: Order Comment: 110.1 Performed By: #### L 500.2500, L100.0500 #### [facility] [address] [place], [address] CBC-Complete Blood Cnt No Di ffon 05-03-2025 Erythrocyte distribution width (RBC) [Ratio] 13.7 % Normal 11.6-14.6 [facility] Comment on above: Order Comment: 110.1 Performed By: #### L 500.2500, L100.0500 #### [facility] [address] [place], [address] Hematocrit (Bld) [Volume fraction] 31.4 % Low 40-54 [facility] Comment on above: Order Comment: 110.1 Performed By: #### L 500.2500, L100.0500 #### [facility] [address] [place], [address] Hemoglobin (Bld) [Mass/Vol] 10.3 g/dL Low 13.0-16.5 [facility] Comment on above: Order Comment: 110.1 Performed By: #### L 500.2500, L100.0500 #### [facility] [address] [place], [address] MCH (RBC) [Entitic mass] 33.0 pg High 27.0-32.0 [facility] Comment on above: Order Comment: 110.1 Performed By: #### L 500.2500, L100.0500 #### [facility] [address] [place], [address] MCHC (RBC) [Mass/Vol] 32.8 g/dL Normal 32-36 [facility] Comment on above: Order Comment: 110.1 Performed By: #### L 500.2500, L100.0500 #### [facility] [address] [place], [address] MCV (RBC) [Entitic vol] 100.6 fL High 80-94 [facility] Comment on above: Order Comment: 110.1 Performed By: #### L 500.2500, L100.0500 #### [facility] [address] [place], [address] Platelet mean volume (Bld) [Entitic vol] 11.7 fL Normal 6.2-12.0 [facility] Comment on above: Order Comment: 110.1 Performed By: #### L 500.2500, L100.0500 #### [facility] [address] [place], [address] Platelets (Bld) [#/Vol] 119 10*3/uL Low 150-450 [facility] Comment on above: Order Comment: 110.1 Performed By: #### L 500.2500, L100.0500 #### [facility] [address] [place], [address] RBC (Bld) [#/Vol] 3.12 10*6/uL Low 4.6-6.2 [facility] Comment on above: Order Comment: 110.1 Performed By: #### L 500.2500, L100.0500 #### [facility] [address] [place], [address] RDW SD 51.0 fl High 35.1-43.9 [facility] Comment on above: Order Comment: 110.1 Performed By: #### L 500.2500, L100.0500 #### [facility] [address] [place], [address] WBC (Bld) [#/Vol] 3.8 10*3/uL Low 4.4-11.0 [facility] Comment on above: Order Comment: 110.1 Performed By: #### L 500.2500, L100.0500 #### [facility] [address] [place], [address] Basic Metabolic Profile (BMP )on 04-04-2025 BUN/CRE 14.5 RATIO Normal 10-20 [facility] Comment on above: Order Comment: 110.1 Performed By: #### L 100.0100, L500.2500 #### [facility] [address] [place], [address] Calcium [Mass/Vol] 7.9 mg/dL Normal 7.6-11.0 [facility] Comment on above: Order Comment: 110.1 Performed By: #### L 100.0100, L500.2500 #### [facility] [address] [place], [address] Chloride [Moles/Vol] 101 mmol/L Normal 98-108 [facility] Comment on above: Order Comment: 110.1 Performed By: #### L 100.0100, L500.2500 #### [facility] [address] [place], [address] CO2 [Moles/Vol] 23.6 mmol/L Normal 21.0-32.0 [facility] Comment on above: Order Comment: 110.1 Performed By: #### L 100.0100, L500.2500 #### [facility] [address] [place], [address] Creatinine [Mass/Vol] 1.00 mg/dL Normal 0.70-1.20 [facility] Comment on above: Order Comment: 110.1 Performed By: #### L 100.0100, L500.2500 #### [facility] [address] [place], [address] GAP 9 Normal 5-15 [facility] Comment on above: Order Comment: 110.1 Performed By: #### L 100.0100, L500.2500 #### [facility] [address] [place], [address] GFR/1.73 sq M.predicted among non-blacks MDRD (S/P/Bld) [Vol rate/Area] 75 mL/min/{1.73_m2} Normal >60 [facility] Comment on above: Order Comment: 110.1 Result Comment: mL/m in/1.73m2 CKD-EPI Creatinine Equation (2020) Performed By: #### L 100.0100, L500.2500 #### [facility] [address] [place], [address] Glucose [Mass/Vol] 78 mg/dL Normal 70-99 [facility] Comment on above: Order Comment: 110.1 Performed By: #### L 100.0100, L500.2500 #### [facility] [address] [place], [address] Potassium [Moles/Vol] 3.8 mmol/L Normal 3.3-5.1 [facility] Comment on above: Order Comment: 110.1 Performed By: #### L 100.0100, L500.2500 #### [facility] [address] [place], [address] Sodium [Moles/Vol] 134 mmol/L Normal 133-145 [facility] Comment on above: Order Comment: 110.1 Performed By: #### L 100.0100, L500.2500 #### [facility] [address] [place], [address] Urea nitrogen [Mass/Vol] 15 mg/dL Normal 4-19 [facility] Comment on above: Order Comment: 110.1 Performed By: #### L 100.0100, L500.2500 #### [facility] [address] [place], [address] CBC-Complete Blood Cnt No Di ffon 04-04-2025 Erythrocyte distribution width (RBC) [Ratio] 15.4 % High 11.6-14.6 [facility] Comment on above: Order Comment: 110.1 Performed By: #### L 100.0100, L500.2500 #### [facility] [address] [place], [address] Hematocrit (Bld) [Volume fraction] 25.3 % Low 40-54 [facility] Comment on above: Order Comment: 110.1 Performed By: #### L 100.0100, L500.2500 #### [facility] [address] [place], [address] Hemoglobin (Bld) [Mass/Vol] 8.5 g/dL Low 13.0-16.5 [facility] Comment on above: Order Comment: 110.1 Performed By: #### L 100.0100, L500.2500 #### [facility] [address] [place], [address] MCH (RBC) [Entitic mass] 32.4 pg High 27.0-32.0 [facility] Comment on above: Order Comment: 110.1 Performed By: #### L 100.0100, L500.2500 #### [facility] [address] [place], [address] MCHC (RBC) [Mass/Vol] 33.6 g/dL Normal 32-36 [facility] Comment on above: Order Comment: 110.1 Performed By: #### L 100.0100, L500.2500 #### [facility] [address] [place], [address] MCV (RBC) [Entitic vol] 96.6 fL High 80-94 [facility] Comment on above: Order Comment: 110.1 Performed By: #### L 100.0100, L500.2500 #### [facility] [address] [place], [address] Platelet mean volume (Bld) [Entitic vol] 11.3 fL Normal 6.2-12.0 [facility] Comment on above: Order Comment: 110.1 Performed By: #### L 100.0100, L500.2500 #### [facility] [address] [place], [address] Platelets (Bld) [#/Vol] 111 10*3/uL Low 150-450 [facility] Comment on above: Order Comment: 110.1 Performed By: #### L 100.0100, L500.2500 #### [facility] [address] [place], [address] RBC (Bld) [#/Vol] 2.62 10*6/uL Low 4.6-6.2 [facility] Comment on above: Order Comment: 110.1 Performed By: #### L 100.0100, L500.2500 #### [facility] [address] [place], [address] RDW SD 54.6 fl High 35.1-43.9 [facility] Comment on above: Order Comment: 110.1 Performed By: #### L 100.0100, L500.2500 #### [facility] [address] [place], [address] WBC (Bld) [#/Vol] 4.2 10*3/uL Low 4.4-11.0 [facility] Comment on above: Order Comment: 110.1 Performed By: #### L 100.0100, L500.2500 #### [facility] [address] [place], [address] Lipid Profileon 04-04-2025 CHOL:HDL 1.68 Normal [facility] Comment on above: Order Comment: 110.1 Performed By: #### L 100.0100, L500.2500 #### [facility] [address] [place], [address] Cholesterol [Mass/Vol] 76 mg/dL Normal <=200 [facility] Comment on above: Order Comment: 110.1 Result Comment: Chol esterol level, Desirable <200 mg/dL Borderline high cholesterol 200-239 mg/dL High cholesterol >=240 mg/dL Recommendations of the NCEP Adult Treatment Panel for the following risk-cutoff thresholds for the [place] population. Performed By: #### L 100.0100, L500.2500 #### [facility] [address] [place], [address] Cholesterol in HDL [Mass/Vol] 45 mg/dL Normal [facility] Comment on above: Order Comment: 110.1 Result Comment: Jesusita onal Cholesterol Education Program (NCEP) guidelines: <40 mg/dL: Low HDL-cholesterol (major risk factor for CHD) >= 60 mg/dL: High HDL-cholesterol (negative risk factor for CHD) HDL-cholesterol is affected by a number of factors, e.g. smoking, exercise, hormones, sex and age. Performed By: #### L 100.0100, L500.2500 #### [facility] [address] [place], [address] Cholesterol in LDL [Mass/Vol] 20 mg/dL Normal [facility] Comment on above: Order Comment: 110.1 Result Comment: Bord lgmeyu=785-974 mg/dL Higher Uxdm=474 mg/dL or greater Friedwald Equation for LDL-C Performed By: #### L 100.0100, L500.2500 #### [facility] [address] [place], [address] Cholesterol in VLDL [Mass/Vol] 10 mg/dL Normal 5-40 [facility] Comment on above: Order Comment: 110.1 Performed By: #### L 100.0100, L500.2500 #### [facility] [address] [place], [address] Triglyceride [Mass/Vol] 52 mg/dL Normal [facility] Comment on above: Order Comment: 110.1 Result Comment: The drugs N-Acetylcysteine and Metamizole may falsely depress this assay. Normal range: <150 mg/dL Borderline High: 150-199 mg/dL High: 200-499 mg/dL Very High: >500 mg/dL Performed By: #### L 100.0100, L500.2500 #### [facility] [address] [place], [address] Basic Metabolic Profile (BMP )on 04-01-2025 BUN/CRE 10.6 RATIO Normal 10-20 [facility] Comment on above: Order Comment: 110.1 Performed By: #### L 500.4100, L100.0500, L500.2500 #### [facility] [address] [place], [address] Calcium [Mass/Vol] 8.5 mg/dL Normal 7.6-11.0 [facility] Comment on above: Order Comment: 110.1 Performed By: #### L 500.4100, L100.0500, L500.2500 #### [facility] [address] [place], [address] Chloride [Moles/Vol] 102 mmol/L Normal 98-108 [facility] Comment on above: Order Comment: 110.1 Performed By: #### L 500.4100, L100.0500, L500.2500 #### [facility] [address] [place], [address] CO2 [Moles/Vol] 23.9 mmol/L Normal 21.0-32.0 [facility] Comment on above: Order Comment: 110.1 Performed By: #### L 500.4100, L100.0500, L500.2500 #### [facility] [address] [place], [address] Creatinine [Mass/Vol] 0.96 mg/dL Normal 0.70-1.20 [facility] Comment on above: Order Comment: 110.1 Performed By: #### L 500.4100, L100.0500, L500.2500 #### [facility] [address] [place], [address] GAP 10 Normal 5-15 [facility] Comment on above: Order Comment: 110.1 Performed By: #### L 500.4100, L100.0500, L500.2500 #### [facility] [address] [place], [address] GFR/1.73 sq M.predicted among non-blacks MDRD (S/P/Bld) [Vol rate/Area] 79 mL/min/{1.73_m2} Normal >60 [facility] Comment on above: Order Comment: 110.1 Result Comment: mL/m in/1.73m2 CKD-EPI Creatinine Equation (2020) Performed By: #### L 500.4100, L100.0500, L500.2500 #### [facility] [address] [place], [address] Glucose [Mass/Vol] 76 mg/dL Normal 70-99 [facility] Comment on above: Order Comment: 110.1 Performed By: #### L 500.4100, L100.0500, L500.2500 #### [facility] [address] [place], [address] Potassium [Moles/Vol] 3.8 mmol/L Normal 3.3-5.1 [facility] Comment on above: Order Comment: 110.1 Performed By: #### L 500.4100, L100.0500, L500.2500 #### [facility] [address] [place], [address] Sodium [Moles/Vol] 135 mmol/L Normal 133-145 [facility] Comment on above: Order Comment: 110.1 Performed By: #### L 500.4100, L100.0500, L500.2500 #### [facility] [address] [place], [address] Urea nitrogen [Mass/Vol] 10 mg/dL Normal 4-19 [facility] Comment on above: Order Comment: 110.1 Performed By: #### L 500.4100, L100.0500, L500.2500 #### [facility] [address] [place], [address] CBC-Complete Blood Cnt No Di ffon 04-01-2025 Erythrocyte distribution width (RBC) [Ratio] 15.0 % High 11.6-14.6 [facility] Comment on above: Order Comment: 110.1 Performed By: #### L 500.4100, L100.0500, L500.2500 #### [facility] [address] [place], [address] Hematocrit (Bld) [Volume fraction] 25.5 % Low 40-54 [facility] Comment on above: Order Comment: 110.1 Performed By: #### L 500.4100, L100.0500, L500.2500 #### [facility] [address] [place], [address] Hemoglobin (Bld) [Mass/Vol] 8.7 g/dL Low 13.0-16.5 [facility] Comment on above: Order Comment: 110.1 Performed By: #### L 500.4100, L100.0500, L500.2500 #### [facility] [address] [place], [address] MCH (RBC) [Entitic mass] 32.5 pg High 27.0-32.0 [facility] Comment on above: Order Comment: 110.1 Performed By: #### L 500.4100, L100.0500, L500.2500 #### [facility] [address] [place], [address] MCHC (RBC) [Mass/Vol] 34.1 g/dL Normal 32-36 [facility] Comment on above: Order Comment: 110.1 Performed By: #### L 500.4100, L100.0500, L500.2500 #### [facility] [address] [place], [address] MCV (RBC) [Entitic vol] 95.1 fL High 80-94 [facility] Comment on above: Order Comment: 110.1 Performed By: #### L 500.4100, L100.0500, L500.2500 #### [facility] [address] [place], [address] Platelet mean volume (Bld) [Entitic vol] 11.1 fL Normal 6.2-12.0 [facility] Comment on above: Order Comment: 110.1 Performed By: #### L 500.4100, L100.0500, L500.2500 #### [facility] [address] [place], [address] Platelets (Bld) [#/Vol] 122 10*3/uL Low 150-450 [facility] Comment on above: Order Comment: 110.1 Performed By: #### L 500.4100, L100.0500, L500.2500 #### [facility] [address] [place], [address] RBC (Bld) [#/Vol] 2.68 10*6/uL Low 4.6-6.2 [facility] Comment on above: Order Comment: 110.1 Performed By: #### L 500.4100, L100.0500, L500.2500 #### [facility] [address] [place], [address] RDW SD 51.4 fl High 35.1-43.9 [facility] Comment on above: Order Comment: 110.1 Performed By: #### L 500.4100, L100.0500, L500.2500 #### [facility] [address] [place], [address] WBC (Bld) [#/Vol] 3.3 10*3/uL Low 4.4-11.0 [facility] Comment on above: Order Comment: 110.1 Performed By: #### L 500.4100, L100.0500, L500.2500 #### [facility] [address] [place], [address] Lipid Profileon 04-01-2025 CHOL:HDL 1.84 Normal [facility] Comment on above: Order Comment: 110.1 Performed By: #### L 500.4100, L100.0500, L500.2500 #### [facility] [address] [place], [address] Cholesterol [Mass/Vol] 82 mg/dL Normal <=200 [facility] Comment on above: Order Comment: 110.1 Result Comment: Chol esterol level, Desirable <200 mg/dL Borderline high cholesterol 200-239 mg/dL High cholesterol >=240 mg/dL Recommendations of the NCEP Adult Treatment Panel for the following risk-cutoff thresholds for the [place] population. Performed By: #### L 500.4100, L100.0500, L500.2500 #### [facility] [address] [place], [address] Cholesterol in HDL [Mass/Vol] 45 mg/dL Normal [facility] Comment on above: Order Comment: 110.1 Result Comment: Jesus[place] onal Cholesterol Education Program (NCEP) guidelines: <40 mg/dL: Low HDL-cholesterol (major risk factor for CHD) >= 60 mg/dL: High HDL-cholesterol (negative risk factor for CHD) HDL-cholesterol is affected by a number of factors, e.g. smoking, exercise, hormones, sex and age. Performed By: #### L 500.4100, L100.0500, L500.2500 #### [facility] [address] [place], [address] Cholesterol in LDL [Mass/Vol] 22 mg/dL Normal [facility] Comment on above: Order Comment: 110.1 Result Comment: Bord obexjh=977-882 mg/dL Higher Faug=513 mg/dL or greater Friedwald Equation for LDL-C Performed By: #### L 500.4100, L100.0500, L500.2500 #### [facility] [address] [place], [address] Cholesterol in VLDL [Mass/Vol] 16 mg/dL Normal 5-40 [facility] Comment on above: Order Comment: 110.1 Performed By: #### L 500.4100, L100.0500, L500.2500 #### [facility] [address] [place], [address] Triglyceride [Mass/Vol] 80 mg/dL Normal [facility] Comment on above: Order Comment: 110.1 Result Comment: The drugs N-Acetylcysteine and Metamizole may falsely depress this assay. Normal range: <150 mg/dL Borderline High: 150-199 mg/dL High: 200-499 mg/dL Very High: >500 mg/dL Performed By: #### L 500.4100, L100.0500, L500.2500 #### [facility] [address] [place], [address] CBC-Complete Blood Cnt No Di ffon 03-02-2025 Erythrocyte distribution width (RBC) [Ratio] 13.1 % Normal 11.6-14.6 [facility] Comment on above: Order Comment: 110.1 Performed By: #### L 500.4100, L100.0500, L500.2500 #### [facility] [address] [place], [address] Hematocrit (Bld) [Volume fraction] 32.8 % Low 40-54 [facility] Comment on above: Order Comment: 110.1 Performed By: #### L 500.4100, L100.0500, L500.2500 #### [facility] [address] [place], [address] Hemoglobin (Bld) [Mass/Vol] 11.0 g/dL Low 13.0-16.5 [facility] Comment on above: Order Comment: 110.1 Performed By: #### L 500.4100, L100.0500, L500.2500 #### [facility] [address] [place], [address] MCH (RBC) [Entitic mass] 31.4 pg Normal 27.0-32.0 [facility] Comment on above: Order Comment: 110.1 Performed By: #### L 500.4100, L100.0500, L500.2500 #### [facility] [address] [place], [address] MCHC (RBC) [Mass/Vol] 33.5 g/dL Normal 32-36 [facility] Comment on above: Order Comment: 110.1 Performed By: #### L 500.4100, L100.0500, L500.2500 #### [facility] [address] [place], [address] MCV (RBC) [Entitic vol] 93.7 fL Normal 80-94 [facility] Comment on above: Order Comment: 110.1 Performed By: #### L 500.4100, L100.0500, L500.2500 #### [facility] [address] [place], [address] Platelet mean volume (Bld) [Entitic vol] 11.8 fL Normal 6.2-12.0 [facility] Comment on above: Order Comment: 110.1 Performed By: #### L 500.4100, L100.0500, L500.2500 #### [facility] [address] [place], [address] Platelets (Bld) [#/Vol] 113 10*3/uL Low 150-450 [facility] Comment on above: Order Comment: 110.1 Performed By: #### L 500.4100, L100.0500, L500.2500 #### [facility] [address] [place], [address] RBC (Bld) [#/Vol] 3.50 10*6/uL Low 4.6-6.2 [facility] Comment on above: Order Comment: 110.1 Performed By: #### L 500.4100, L100.0500, L500.2500 #### [facility] [address] [place], [address] RDW SD 44.6 fl High 35.1-43.9 [facility] Comment on above: Order Comment: 110.1 Performed By: #### L 500.4100, L100.0500, L500.2500 #### [facility] [address] [place], [address] WBC (Bld) [#/Vol] 6.8 10*3/uL Normal 4.4-11.0 [facility] Comment on above: Order Comment: 110.1 Performed By: #### L 500.4100, L100.0500, L500.2500 #### [facility] [address] [place], [address] Basic Metabolic Profile (BMP )on 03-01-2025 BUN/CRE 15.2 RATIO Normal 10-20 [facility] Comment on above: Order Comment: 110.1 Performed By: #### L 500.4100, L100.0500, L500.2500 #### [facility] [address] [place], [address] Calcium [Mass/Vol] 8.6 mg/dL Normal 7.6-11.0 [facility] Comment on above: Order Comment: 110.1 Performed By: #### L 500.4100, L100.0500, L500.2500 #### [facility] [address] [place], [address] Chloride [Moles/Vol] 104 mmol/L Normal 98-108 [facility] Comment on above: Order Comment: 110.1 Performed By: #### L 500.4100, L100.0500, L500.2500 #### [facility] [address] [place], [address] CO2 [Moles/Vol] 23.1 mmol/L Normal 21.0-32.0 [facility] Comment on above: Order Comment: 110.1 Performed By: #### L 500.4100, L100.0500, L500.2500 #### [facility] [address] [place], [address] Creatinine [Mass/Vol] 1.02 mg/dL Normal 0.70-1.20 [facility] Comment on above: Order Comment: 110.1 Performed By: #### L 500.4100, L100.0500, L500.2500 #### [facility] [address] [place], [address] GAP 11 Normal 5-15 [facility] Comment on above: Order Comment: 110.1 Performed By: #### L 500.4100, L100.0500, L500.2500 #### [facility] [address] [place], [address] GFR/1.73 sq M.predicted among non-blacks MDRD (S/P/Bld) [Vol rate/Area] 73 mL/min/{1.73_m2} Normal >60 [facility] Comment on above: Order Comment: 110.1 Result Comment: mL/m in/1.73m2 CKD-EPI Creatinine Equation (2020) Performed By: #### L 500.4100, L100.0500, L500.2500 #### [facility] [address] [place], [address] Glucose [Mass/Vol] 75 mg/dL Normal 70-99 [facility] Comment on above: Order Comment: 110.1 Performed By: #### L 500.4100, L100.0500, L500.2500 #### [facility] [address] [place], [address] Potassium [Moles/Vol] 3.9 mmol/L Normal 3.3-5.1 [facility] Comment on above: Order Comment: 110.1 Performed By: #### L 500.4100, L100.0500, L500.2500 #### [facility] [address] [place], [address] Sodium [Moles/Vol] 138 mmol/L Normal 133-145 [facility] Comment on above: Order Comment: 110.1 Performed By: #### L 500.4100, L100.0500, L500.2500 #### [facility] [address] [place], [address] Urea nitrogen [Mass/Vol] 16 mg/dL Normal 4-19 [facility] Comment on above: Order Comment: 110.1 Performed By: #### L 500.4100, L100.0500, L500.2500 #### [facility] [address] [place], [address] CBC-Complete Blood Cnt No Di ffon 03-01-2025 HCT Normal 40-54 [facility] Comment on above: Order Comment: 110.1 Result Comment: This specimen has been REJECTED due to Laboratory criteria: Quanity Not Sufficient. MYEAGER has been notified of need of recollection. 03/01/25914 Kamilah Zimmerman Performed By: #### L 500.4100, L100.0500, L500.2500 #### [facility] [address] [place], [address] HGB Normal 13.0-16.5 [facility] Comment on above: Order Comment: 110.1 Result Comment: This specimen has been REJECTED due to Laboratory criteria: Quanity Not Sufficient. MYEAGER has been notified of need of recollection. 03/01/25914 Kamilah Zimmerman Performed By: #### L 500.4100, L100.0500, L500.2500 #### [facility] [address] [place], [address] MCH Normal 27.0-32.0 [facility] Comment on above: Order Comment: 110.1 Result Comment: This specimen has been REJECTED due to Laboratory criteria: Quanity Not Sufficient. MYEAGER has been notified of need of recollection. 03/01/25914 Kamilah Zimmerman Performed By: #### L 500.4100, L100.0500, L500.2500 #### [facility] [address] [place], [address] MCHC Normal 32-36 [facility] Comment on above: Order Comment: 110.1 Result Comment: This specimen has been REJECTED due to Laboratory criteria: Quanity Not Sufficient. MYEAGER has been notified of need of recollection. 03/01/25914 Kamilah Zimmerman Performed By: #### L 500.4100, L100.0500, L500.2500 #### [facility] [address] [place], [address] MCV Normal 80-94 [facility] Comment on above: Order Comment: 110.1 Result Comment: This specimen has been REJECTED due to Laboratory criteria: Quanity Not Sufficient. MYEAGER has been notified of need of recollection. 03/01/25914 Kamilah Zimmerman Performed By: #### L 500.4100, L100.0500, L500.2500 #### [facility] [address] [place], [address] PLT Normal 150-450 [facility] Comment on above: Order Comment: 110.1 Result Comment: This specimen has been REJECTED due to Laboratory criteria: Quanity Not Sufficient. MYEAGER has been notified of need of recollection. 03/01/25914 Kamilah Zimmerman Performed By: #### L 500.4100, L100.0500, L500.2500 #### [facility] [address] [place], [address] RBC Normal 4.6-6.2 [facility] Comment on above: Order Comment: 110.1 Result Comment: This specimen has been REJECTED due to Laboratory criteria: Quanity Not Sufficient. MYEAGER has been notified of need of recollection. 03/01/25914 Kamilah Zimmerman Performed By: #### L 500.4100, L100.0500, L500.2500 #### [facility] [address] [place], [address] RDW CV Normal 11.6-14.6 [facility] Comment on above: Order Comment: 110.1 Result Comment: This specimen has been REJECTED due to Laboratory criteria: Quanity Not Sufficient. MYEAGER has been notified of need of recollection. 03/01/25914 Kamilah Zimmerman Performed By: #### L 500.4100, L100.0500, L500.2500 #### [facility] [address] [place], [address] RDW SD Normal 35.1-43.9 [facility] Comment on above: Order Comment: 110.1 Result Comment: This specimen has been REJECTED due to Laboratory criteria: Quanity Not Sufficient. MYEAGER has been notified of need of recollection. 03/01/25914 Kamilah Zimmerman Performed By: #### L 500.4100, L100.0500, L500.2500 #### [facility] [address] [place], [address] WBC Normal 4.4-11.0 [facility] Comment on above: Order Comment: 110.1 Result Comment: This specimen has been REJECTED due to Laboratory criteria: Quanity Not Sufficient. LISHA has been notified of need of recollection. 03/01/25 0915 Kamilah Zimmerman Performed By: #### L 500.4100, L100.0500, L500.2500 #### [facility] [address] [place], [address] Lipid Profileon 03-01-2025 CHOL:HDL 2.34 Normal [facility] Comment on above: Order Comment: 110.1 Performed By: #### L 500.4100, L100.0500, L500.2500 #### [facility] [address] [place], [address] Cholesterol [Mass/Vol] 81 mg/dL Normal <=200 [facility] Comment on above: Order Comment: 110.1 Result Comment: Chol esterol level, Desirable <200 mg/dL Borderline high cholesterol 200-239 mg/dL High cholesterol >=240 mg/dL Recommendations of the NCEP Adult Treatment Panel for the following risk-cutoff thresholds for the [place] population. Performed By: #### L 500.4100, L100.0500, L500.2500 #### [facility] [address] [place], [address] Cholesterol in HDL [Mass/Vol] 35 mg/dL Low [facility] Comment on above: Order Comment: 110.1 Result Comment: [place] onal Cholesterol Education Program (NCEP) guidelines: <40 mg/dL: Low HDL-cholesterol (major risk factor for CHD) >= 60 mg/dL: High HDL-cholesterol (negative risk factor for CHD) HDL-cholesterol is affected by a number of factors, e.g. smoking, exercise, hormones, sex and age. Performed By: #### L 500.4100, L100.0500, L500.2500 #### [facility] [address] [place], [address] Cholesterol in LDL [Mass/Vol] 30 mg/dL Normal [facility] Comment on above: Order Comment: 110.1 Result Comment: Bord hejikq=827-723 mg/dL Higher Axdc=456 mg/dL or greater Friedwald Equation for LDL-C Performed By: #### L 500.4100, L100.0500, L500.2500 #### [facility] [address] [place], [address] Cholesterol in VLDL [Mass/Vol] 16 mg/dL Normal 5-40 [facility] Comment on above: Order Comment: 110.1 Performed By: #### L 500.4100, L100.0500, L500.2500 #### [facility] [address] [place], [address] Triglyceride [Mass/Vol] 79 mg/dL Normal [facility] Comment on above: Order Comment: 110.1 Result Comment: The drugs N-Acetylcysteine and Metamizole may falsely depress this assay. Normal range: <150 mg/dL Borderline High: 150-199 mg/dL High: 200-499 mg/dL Very High: >500 mg/dL Performed By: #### L 500.4100, L100.0500, L500.2500 #### [facility] [address] [place], [address] Basic Metabolic Profile (BMP )on 02-17-2025 BUN Normal 4-19 [facility] Comment on above: Result Comment: Canc elled via OM: Order cancelled - Patient discharged Performed By: #### L 100.0100, L500.2500 #### [facility] [address] [place], [address] BUN/CRE Normal -20 [facility] Comment on above: Result Comment: Canc elled via OM: Order cancelled - Patient discharged Performed By: #### L 100.0100, L500.2500 #### [facility] [address] [place], [address] Calcium Normal 7.6-11.0 [facility] Comment on above: Result Comment: Canc elled via OM: Order cancelled - Patient discharged Performed By: #### L 100.0100, L500.2500 #### [facility] [address] [place], [address] CL Normal 98-108 [facility] Comment on above: Result Comment: Canc elled via OM: Order cancelled - Patient discharged Performed By: #### L 100.0100, L500.2500 #### [facility] [address] [place], [address] CO2 Normal 21.0-32.0 [facility] Comment on above: Result Comment: Canc elled via OM: Order cancelled - Patient discharged Performed By: #### L 100.0100, L500.2500 #### [facility] [address] [place], [address] CREAT,SERUM Normal 0.70-1.20 [facility] Comment on above: Result Comment: Canc elled via OM: Order cancelled - Patient discharged Performed By: #### L 100.0100, L500.2500 #### [facility] [address] [place], [address] eGFR Normal >60 [facility] Comment on above: Result Comment: Canc elled via OM: Order cancelled - Patient discharged Performed By: #### L 100.0100, L500.2500 #### [facility] [address] [place], [address] GAP Normal 5-15 [facility] Comment on above: Result Comment: Canc elled via OM: Order cancelled - Patient discharged Performed By: #### L 100.0100, L500.2500 #### [facility] [address] [place], [address] GLU Normal 70-99 [facility] Comment on above: Result Comment: Canc elled via OM: Order cancelled - Patient discharged Performed By: #### L 100.0100, L500.2500 #### [facility] [address] [place], [address] Potassium Normal 3.3-5.1 [facility] Comment on above: Result Comment: Canc elled via OM: Order cancelled - Patient discharged Performed By: #### L 100.0100, L500.2500 #### [facility] [address] [place], [address] Basic Metabolic Profile (BMP) Normal 133-145 [facility] Comment on above: Result Comment: Canc elled via OM: Order cancelled - Patient discharged Performed By: #### L 100.0100, L500.2500 #### [facility] [address] [place], [address] CBC W/Diff, Automatedon 08-0 7-2024 Absolute Neut Normal 2.0-7.7 [facility] Comment on above: Result Comment: Canc elled via OM: Order cancelled - Patient discharged Performed By: #### L 100.0100, L500.2500 #### [facility] [address] [place], [address] HCT Normal 40-54 [facility] Comment on above: Result Comment: Canc elled via OM: Order cancelled - Patient discharged Performed By: #### L 100.0100, L500.2500 #### [facility] [address] [place], [address] HGB Normal 13.0-16.5 [facility] Comment on above: Result Comment: Canc elled via OM: Order cancelled - Patient discharged Performed By: #### L 100.0100, L500.2500 #### [facility] [address] [place], [address] MCH Normal 27.0-32.0 [facility] Comment on above: Result Comment: Canc elled via OM: Order cancelled - Patient discharged Performed By: #### L 100.0100, L500.2500 #### [facility] [address] [place], [address] MCHC Normal 32-36 [facility] Comment on above: Result Comment: Canc elled via OM: Order cancelled - Patient discharged Performed By: #### L 100.0100, L500.2500 #### [facility] [address] [place], [address] MCV Normal 80-94 [facility] Comment on above: Result Comment: Canc elled via OM: Order cancelled - Patient discharged Performed By: #### L 100.0100, L500.2500 #### [facility] [address] [place], [address] NEUT% Normal 47-70 [facility] Comment on above: Result Comment: Canc elled via OM: Order cancelled - Patient discharged Performed By: #### L 100.0100, L500.2500 #### [facility] [address] [place], [address] PLT Normal 150-450 [facility] Comment on above: Result Comment: Canc elled via OM: Order cancelled - Patient discharged Performed By: #### L 100.0100, L500.2500 #### [facility] [address] [place], [address] RBC Normal 4.6-6.2 [facility] Comment on above: Result Comment: Canc elled via OM: Order cancelled - Patient discharged Performed By: #### L 100.0100, L500.2500 #### [facility] [address] [place], [address] RDW CV Normal 11.6-14.6 [facility] Comment on above: Result Comment: Canc elled via OM: Order cancelled - Patient discharged Performed By: #### L 100.0100, L500.2500 #### [facility] [address] [place], [address] RDW SD Normal 35.1-43.9 [facility] Comment on above: Result Comment: Canc elled via OM: Order cancelled - Patient discharged Performed By: #### L 100.0100, L500.2500 #### [facility] [address] [place], [address] WBC Normal 4.4-11.0 [facility] Comment on above: Result Comment: Canc elled via OM: Order cancelled - Patient discharged Performed By: #### L 100.0100, L500.2500 #### [facility] [address] [place], [address] Basic Metabolic Profile (BMP )on 02-16-2025 BUN Normal 4-19 [facility] Comment on above: Result Comment: Canc elled via OM: Order cancelled - Patient discharged Performed By: #### L 500.4100, L100.0500, L500.2500 #### [facility] [address] [place], [address] BUN/CRE Normal 10-20 [facility] Comment on above: Result Comment: Canc elled via OM: Order cancelled - Patient discharged Performed By: #### L 500.4100, L100.0500, L500.2500 #### [facility] [address] [place], [address] Calcium Normal 7.6-11.0 [facility] Comment on above: Result Comment: Canc elled via OM: Order cancelled - Patient discharged Performed By: #### L 500.4100, L100.0500, L500.2500 #### [facility] [address] [place], [address] CL Normal 98-108 [facility] Comment on above: Result Comment: Canc elled via OM: Order cancelled - Patient discharged Performed By: #### L 500.4100, L100.0500, L500.2500 #### [facility] [address] [place], [address] CO2 Normal 21.0-32.0 [facility] Comment on above: Result Comment: Canc elled via OM: Order cancelled - Patient discharged Performed By: #### L 500.4100, L100.0500, L500.2500 #### [facility] [address] [place], [address] CREAT,SERUM Normal 0.70-1.20 [facility] Comment on above: Result Comment: Canc elled via OM: Order cancelled - Patient discharged Performed By: #### L 500.4100, L100.0500, L500.2500 #### [facility] [address] [place], [address] eGFR Normal >60 [facility] Comment on above: Result Comment: Canc elled via OM: Order cancelled - Patient discharged Performed By: #### L 500.4100, L100.0500, L500.2500 #### [facility] [address] [place], [address] GAP Normal 5-15 [facility] Comment on above: Result Comment: Canc elled via OM: Order cancelled - Patient discharged Performed By: #### L 500.4100, L100.0500, L500.2500 #### [facility] [address] [place], [address] GLU Normal 70-99 [facility] Comment on above: Result Comment: Canc elled via OM: Order cancelled - Patient discharged Performed By: #### L 500.4100, L100.0500, L500.2500 #### [facility] [address] [place], [address] Potassium Normal 3.3-5.1 [facility] Comment on above: Result Comment: Canc elled via OM: Order cancelled - Patient discharged Performed By: #### L 500.4100, L100.0500, L500.2500 #### [facility] [address] [place], [address] Basic Metabolic Profile (BMP) Normal 133-145 [facility] Comment on above: Result Comment: Canc elled via OM: Order cancelled - Patient discharged Performed By: #### L 500.4100, L100.0500, L500.2500 #### [facility] [address] [place], [address] CBC W/Diff, Automatedon 08-0 -2024 Absolute Neut Normal 2.0-7.7 [facility] Comment on above: Result Comment: Canc elled via OM: Order cancelled - Patient discharged Performed By: #### L 500.4100, L100.0500, L500.2500 #### [facility] [facility] [address] [place], [address] HCT Normal 40-54 [facility] Comment on above: Result Comment: Canc elled via OM: Order cancelled - Patient discharged Performed By: #### L 500.4100, L100.0500, L500.2500 #### [facility] [address] [place], [address] HGB Normal 13.0-16.5 [facility] Comment on above: Result Comment: Canc elled via OM: Order cancelled - Patient discharged Performed By: #### L 500.4100, L100.0500, L500.2500 #### [facility] [address] [place], [address] MCH Normal 27.0-32.0 [facility] Comment on above: Result Comment: Canc elled via OM: Order cancelled - Patient discharged Performed By: #### L 500.4100, L100.0500, L500.2500 #### [facility] [address] [place], [address] MCHC Normal 32-36 [facility] Comment on above: Result Comment: Canc elled via OM: Order cancelled - Patient discharged Performed By: #### L 500.4100, L100.0500, L500.2500 #### [facility] [address] [place], [address] MCV Normal 80-94 [facility] Comment on above: Result Comment: Canc elled via OM: Order cancelled - Patient discharged Performed By: #### L 500.4100, L100.0500, L500.2500 #### [facility] [address] [place], [address] NEUT% Normal 47-70 [facility] Comment on above: Result Comment: Canc elled via OM: Order cancelled - Patient discharged Performed By: #### L 500.4100, L100.0500, L500.2500 #### [facility] [address] [place], [address] PLT Normal 150-450 [facility] Comment on above: Result Comment: Canc elled via OM: Order cancelled - Patient discharged Performed By: #### L 500.4100, L100.0500, L500.2500 #### [facility] [address] [place], [address] RBC Normal 4.6-6.2 [facility] Comment on above: Result Comment: Canc elled via OM: Order cancelled - Patient discharged Performed By: #### L 500.4100, L100.0500, L500.2500 #### [facility] [address] [place], [address] RDW CV Normal 11.6-14.6 [facility] Comment on above: Result Comment: Canc elled via OM: Order cancelled - Patient discharged Performed By: #### L 500.4100, L100.0500, L500.2500 #### [facility] [address] [place], [address] RDW SD Normal 35.1-43.9 [facility] Comment on above: Result Comment: Canc elled via OM: Order cancelled - Patient discharged Performed By: #### L 500.4100, L100.0500, L500.2500 #### [facility] [address] [place], [address] WBC Normal 4.4-11.0 [facility] Comment on above: Result Comment: Canc elled via OM: Order cancelled - Patient discharged Performed By: #### L 500.4100, L100.0500, L500.2500 #### [facility] [address] [place], [address] Basic Metabolic Profile (BMP )on 02-15-2025 BUN Normal 4-19 [facility] Comment on above: Result Comment: Canc elled via OM: Order cancelled - Patient discharged Performed By: #### L 100.0100, L500.2500 #### [facility] [address] [place], [address] BUN/CRE Normal 10-20 [facility] Comment on above: Result Comment: Canc elled via OM: Order cancelled - Patient discharged Performed By: #### L 100.0100, L500.2500 #### [facility] [address] [place], [address] Calcium Normal 7.6-11.0 [facility] Comment on above: Result Comment: Canc elled via OM: Order cancelled - Patient discharged Performed By: #### L 100.0100, L500.2500 #### [facility] [address] [place], [address] CL Normal 98-108 [facility] Comment on above: Result Comment: Canc elled via OM: Order cancelled - Patient discharged Performed By: #### L 100.0100, L500.2500 #### [facility] [address] [place], [address] CO2 Normal 21.0-32.0 [facility] Comment on above: Result Comment: Canc elled via OM: Order cancelled - Patient discharged Performed By: #### L 100.0100, L500.2500 #### [facility] [address] [place], [address] CREAT,SERUM Normal 0.70-1.20 [facility] Comment on above: Result Comment: Canc elled via OM: Order cancelled - Patient discharged Performed By: #### L 100.0100, L500.2500 #### [facility] [address] [place], [address] eGFR Normal >60 [facility] Comment on above: Result Comment: Canc elled via OM: Order cancelled - Patient discharged Performed By: #### L 100.0100, L500.2500 #### [facility] [address] [place], [address] GAP Normal 5-15 [facility] Comment on above: Result Comment: Canc elled via OM: Order cancelled - Patient discharged Performed By: #### L 100.0100, L500.2500 #### [facility] [address] [place], [address] GLU Normal 70-99 [facility] Comment on above: Result Comment: Canc elled via OM: Order cancelled - Patient discharged Performed By: #### L 100.0100, L500.2500 #### [facility] [address] [place], [address] Potassium Normal 3.3-5.1 [facility] Comment on above: Result Comment: Canc elled via OM: Order cancelled - Patient discharged Performed By: #### L 100.0100, L500.2500 #### [facility] [address] [place], [address] Basic Metabolic Profile (BMP) Normal 133-145 [facility] Comment on above: Result Comment: Canc elled via OM: Order cancelled - Patient discharged Performed By: #### L 100.0100, L500.2500 #### [facility] [address] [place], [address] CBC W/Diff, Automatedon 08-0 -2024 Absolute Neut Normal 2.0-7.7 [facility] Comment on above: Result Comment: Canc elled via OM: Order cancelled - Patient discharged Performed By: #### L 100.0100, L500.2500 #### [facility] [address] [place], [address] HCT Normal 40-54 [facility] Comment on above: Result Comment: Canc elled via OM: Order cancelled - Patient discharged Performed By: #### L 100.0100, L500.2500 #### [facility] [address] [place], [address] HGB Normal 13.0-16.5 [facility] Comment on above: Result Comment: Canc elled via OM: Order cancelled - Patient discharged Performed By: #### L 100.0100, L500.2500 #### [facility] [address] [place], [address] MCH Normal 27.0-32.0 [facility] Comment on above: Result Comment: Canc elled via OM: Order cancelled - Patient discharged Performed By: #### L 100.0100, L500.2500 #### [facility] [address] [place], [address] MCHC Normal 32-36 [facility] Comment on above: Result Comment: Canc elled via OM: Order cancelled - Patient discharged Performed By: #### L 100.0100, L500.2500 #### [facility] [address] [place], [address] MCV Normal 80-94 [facility] Comment on above: Result Comment: Canc elled via OM: Order cancelled - Patient discharged Performed By: #### L 100.0100, L500.2500 #### [facility] [address] [place], [address] NEUT% Normal 47-70 [facility] Comment on above: Result Comment: Canc elled via OM: Order cancelled - Patient discharged Performed By: #### L 100.0100, L500.2500 #### [facility] [address] [place], [address] PLT Normal 150-450 [facility] Comment on above: Result Comment: Canc elled via OM: Order cancelled - Patient discharged Performed By: #### L 100.0100, L500.2500 #### [facility] [address] [place], [address] RBC Normal 4.6-6.2 [facility] Comment on above: Result Comment: Canc elled via OM: Order cancelled - Patient discharged Performed By: #### L 100.0100, L500.2500 #### [facility] [address] [place], [address] RDW CV Normal 11.6-14.6 [facility] Comment on above: Result Comment: Canc elled via OM: Order cancelled - Patient discharged Performed By: #### L 100.0100, L500.2500 #### [facility] [address] [place], [address] RDW SD Normal 35.1-43.9 [facility] Comment on above: Result Comment: Canc elled via OM: Order cancelled - Patient discharged Performed By: #### L 100.0100, L500.2500 #### [facility] [address] [place], [address] WBC Normal 4.4-11.0 [facility] Comment on above: Result Comment: Canc elled via OM: Order cancelled - Patient discharged Performed By: #### L 100.0100, L500.2500 #### [facility] [address] [place], [address] Basic Metabolic Profile (BMP )on 02-14-2025 BUN Normal 4-19 [facility] Comment on above: Result Comment: Canc elled via OM: Order cancelled - Patient discharged Performed By: #### L 100.0100, L500.2500 #### [facility] [address] [place], [address] BUN/CRE Normal 10-20 [facility] Comment on above: Result Comment: Canc elled via OM: Order cancelled - Patient discharged Performed By: #### L 100.0100, L500.2500 #### [facility] [address] [place], [address] Calcium Normal 7.6-11.0 [facility] Comment on above: Result Comment: Canc elled via OM: Order cancelled - Patient discharged Performed By: #### L 100.0100, L500.2500 #### [facility] [address] [place], [address] CL Normal 98-108 [facility] Comment on above: Result Comment: Canc elled via OM: Order cancelled - Patient discharged Performed By: #### L 100.0100, L500.2500 #### [facility] [address] [place], [address] CO2 Normal 21.0-32.0 [facility] Comment on above: Result Comment: Canc elled via OM: Order cancelled - Patient discharged Performed By: #### L 100.0100, L500.2500 #### [facility] [address] [place], [address] CREAT,SERUM Normal 0.70-1.20 [facility] Comment on above: Result Comment: Canc elled via OM: Order cancelled - Patient discharged Performed By: #### L 100.0100, L500.2500 #### [facility] [address] [place], [address] eGFR Normal >60 [facility] Comment on above: Result Comment: Canc elled via OM: Order cancelled - Patient discharged Performed By: #### L 100.0100, L500.2500 #### [facility] [address] [place], [address] GAP Normal 5-15 [facility] Comment on above: Result Comment: Canc elled via OM: Order cancelled - Patient discharged Performed By: #### L 100.0100, L500.2500 #### [facility] [address] [place], [address] GLU Normal 70-99 [facility] Comment on above: Result Comment: Canc elled via OM: Order cancelled - Patient discharged Performed By: #### L 100.0100, L500.2500 #### [facility] [address] [place], [address] Potassium Normal 3.3-5.1 [facility] Comment on above: Result Comment: Canc elled via OM: Order cancelled - Patient discharged Performed By: #### L 100.0100, L500.2500 #### [facility] [address] [place], [address] Basic Metabolic Profile (BMP) Normal 133-145 [facility] Comment on above: Result Comment: Canc elled via OM: Order cancelled - Patient discharged Performed By: #### L 100.0100, L500.2500 #### [facility] [address] [place], [address] CBC W/Diff, Automatedon 08-0 Absolute Neut Normal 2.0-7.7 [facility] Comment on above: Result Comment: Canc elled via OM: Order cancelled - Patient discharged Performed By: #### L 100.0100, L500.2500 #### [facility] [address] [place], [address] HCT Normal 40-54 [facility] Comment on above: Result Comment: Canc elled via OM: Order cancelled - Patient discharged Performed By: #### L 100.0100, L500.2500 #### [facility] [address] [place], [address] HGB Normal 13.0-16.5 [facility] Comment on above: Result Comment: Canc elled via OM: Order cancelled - Patient discharged Performed By: #### L 100.0100, L500.2500 #### [facility] [address] [place], [address] MCH Normal 27.0-32.0 [facility] Comment on above: Result Comment: Canc elled via OM: Order cancelled - Patient discharged Performed By: #### L 100.0100, L500.2500 #### [facility] [address] [place], [address] MCHC Normal 32-36 [facility] Comment on above: Result Comment: Canc elled via OM: Order cancelled - Patient discharged Performed By: #### L 100.0100, L500.2500 #### [facility] [address] [place], [address] MCV Normal 80-94 [facility] Comment on above: Result Comment: Canc elled via OM: Order cancelled - Patient discharged Performed By: #### L 100.0100, L500.2500 #### [facility] [address] [place], [address] NEUT% Normal 47-70 [facility] Comment on above: Result Comment: Canc elled via OM: Order cancelled - Patient discharged Performed By: #### L 100.0100, L500.2500 #### [facility] [address] [place], [address] PLT Normal 150-450 [facility] Comment on above: Result Comment: Canc elled via OM: Order cancelled - Patient discharged Performed By: #### L 100.0100, L500.2500 #### [facility] [address] [place], [address] RBC Normal 4.6-6.2 [facility] Comment on above: Result Comment: Canc elled via OM: Order cancelled - Patient discharged Performed By: #### L 100.0100, L500.2500 #### [facility] [address] [place], [address] RDW CV Normal 11.6-14.6 [facility] Comment on above: Result Comment: Canc elled via OM: Order cancelled - Patient discharged Performed By: #### L 100.0100, L500.2500 #### [facility] [address] [place], [address] RDW SD Normal 35.1-43.9 [facility] Comment on above: Result Comment: Canc elled via OM: Order cancelled - Patient discharged Performed By: #### L 100.0100, L500.2500 #### [facility] [address] [place], [address] WBC Normal 4.4-11.0 [facility] Comment on above: Result Comment: Canc elled via OM: Order cancelled - Patient discharged Performed By: #### L 100.0100, L500.2500 #### [facility] [address] [place], [address] Basic Metabolic Profile (BMP )on 02-13-2025 BUN Normal 4-19 [facility] Comment on above: Result Comment: Canc elled via OM: Order cancelled - Patient discharged Performed By: #### L 500.2500, L100.0100 #### [facility] [address] [place], [address] BUN/CRE Normal 10-20 [facility] Comment on above: Result Comment: Canc elled via OM: Order cancelled - Patient discharged Performed By: #### L 500.2500, L100.0100 #### [facility] [address] [place], [address] Calcium Normal 7.6-11.0 [facility] Comment on above: Result Comment: Canc elled via OM: Order cancelled - Patient discharged Performed By: #### L 500.2500, L100.0100 #### [facility] [address] [place], [address] CL Normal 98-108 [facility] Comment on above: Result Comment: Canc elled via OM: Order cancelled - Patient discharged Performed By: #### L 500.2500, L100.0100 #### [facility] [address] [place], [address] CO2 Normal 21.0-32.0 [facility] Comment on above: Result Comment: Canc elled via OM: Order cancelled - Patient discharged Performed By: #### L 500.2500, L100.0100 #### [facility] [address] [place], [address] CREAT,SERUM Normal 0.70-1.20 [facility] Comment on above: Result Comment: Canc elled via OM: Order cancelled - Patient discharged Performed By: #### L 500.2500, L100.0100 #### [facility] [address] [place], [address] eGFR Normal >60 [facility] Comment on above: Result Comment: Canc elled via OM: Order cancelled - Patient discharged Performed By: #### L 500.2500, L100.0100 #### [facility] [address] [place], [address] GAP Normal 5-15 [facility] Comment on above: Result Comment: Canc elled via OM: Order cancelled - Patient discharged Performed By: #### L 500.2500, L100.0100 #### [facility] [address] [place], [address] GLU Normal 70-99 [facility] Comment on above: Result Comment: Canc elled via OM: Order cancelled - Patient discharged Performed By: #### L 500.2500, L100.0100 #### [facility] [address] [place], [address] Potassium Normal 3.3-5.1 [facility] Comment on above: Result Comment: Canc elled via OM: Order cancelled - Patient discharged Performed By: #### L 500.2500, L100.0100 #### [facility] [address] [place], [address] Basic Metabolic Profile (BMP) Normal 133-145 [facility] Comment on above: Result Comment: Canc elled via OM: Order cancelled - Patient discharged Performed By: #### L 500.2500, L100.0100 #### [facility] [address] [place], [address] CBC W/Diff, Automatedon 08-0 -2024 Absolute Neut Normal 2.0-7.7 [facility] Comment on above: Result Comment: Canc elled via OM: Order cancelled - Patient discharged Performed By: #### L 100.0100, L500.2500 #### [facility] [address] [place], [address] HCT Normal 40-54 [facility] Comment on above: Result Comment: Canc elled via OM: Order cancelled - Patient discharged Performed By: #### L 100.0100, L500.2500 #### [facility] [address] [place], [address] HGB Normal 13.0-16.5 [facility] Comment on above: Result Comment: Canc elled via OM: Order cancelled - Patient discharged Performed By: #### L 100.0100, L500.2500 #### [facility] [address] [place], [address] MCH Normal 27.0-32.0 [facility] Comment on above: Result Comment: Canc elled via OM: Order cancelled - Patient discharged Performed By: #### L 100.0100, L500.2500 #### [facility] [address] [place], [address] MCHC Normal 32-36 [facility] Comment on above: Result Comment: Canc elled via OM: Order cancelled - Patient discharged Performed By: #### L 100.0100, L500.2500 #### [facility] [address] [place], [address] MCV Normal 80-94 [facility] Comment on above: Result Comment: Canc elled via OM: Order cancelled - Patient discharged Performed By: #### L 100.0100, L500.2500 #### [facility] [address] [place], [address] NEUT% Normal 47-70 [facility] Comment on above: Result Comment: Canc elled via OM: Order cancelled - Patient discharged Performed By: #### L 100.0100, L500.2500 #### [facility] [address] [place], [address] PLT Normal 150-450 [facility] Comment on above: Result Comment: Canc elled via OM: Order cancelled - Patient discharged Performed By: #### L 100.0100, L500.2500 #### [facility] [address] [place], [address] RBC Normal 4.6-6.2 [facility] Comment on above: Result Comment: Canc elled via OM: Order cancelled - Patient discharged Performed By: #### L 100.0100, L500.2500 #### [facility] [address] [place], [address] RDW CV Normal 11.6-14.6 [facility] Comment on above: Result Comment: Canc elled via OM: Order cancelled - Patient discharged Performed By: #### L 100.0100, L500.2500 #### [facility] [address] [place], [address] RDW SD Normal 35.1-43.9 [facility] Comment on above: Result Comment: Canc elled via OM: Order cancelled - Patient discharged Performed By: #### L 100.0100, L500.2500 #### [facility] [address] [place], [address] WBC Normal 4.4-11.0 [facility] Comment on above: Result Comment: Canc elled via OM: Order cancelled - Patient discharged Performed By: #### L 100.0100, L500.2500 #### [facility] [address] [place], [address] Basic Metabolic Profile (BMP )on 02-12-2025 BUN Normal 4-19 [facility] Comment on above: Result Comment: Canc elled via OM: Order cancelled - Patient discharged Performed By: #### L 500.4100, L100.0500, L500.2500 #### [facility] [address] [place], [address] BUN/CRE Normal 10-20 [facility] Comment on above: Result Comment: Canc elled via OM: Order cancelled - Patient discharged Performed By: #### L 500.4100, L100.0500, L500.2500 #### [facility] [address] [place], [address] Calcium Normal 7.6-11.0 [facility] Comment on above: Result Comment: Canc elled via OM: Order cancelled - Patient discharged Performed By: #### L 500.4100, L100.0500, L500.2500 #### [facility] [address] [place], [address] CL Normal 98-108 [facility] Comment on above: Result Comment: Canc elled via OM: Order cancelled - Patient discharged Performed By: #### L 500.4100, L100.0500, L500.2500 #### [facility] [address] [place], [address] CO2 Normal 21.0-32.0 [facility] Comment on above: Result Comment: Canc elled via OM: Order cancelled - Patient discharged Performed By: #### L 500.4100, L100.0500, L500.2500 #### [facility] [address] [place], [address] CREAT,SERUM Normal 0.70-1.20 [facility] Comment on above: Result Comment: Canc elled via OM: Order cancelled - Patient discharged Performed By: #### L 500.4100, L100.0500, L500.2500 #### [facility] [address] [place], [address] eGFR Normal >60 [facility] Comment on above: Result Comment: Canc elled via OM: Order cancelled - Patient discharged Performed By: #### L 500.4100, L100.0500, L500.2500 #### [facility] [address] [place], [address] GAP Normal 5-15 [facility] Comment on above: Result Comment: Canc elled via OM: Order cancelled - Patient discharged Performed By: #### L 500.4100, L100.0500, L500.2500 #### [facility] [address] [place], [address] GLU Normal 70-99 [facility] [facility] Comment on above: Result Comment: Canc elled via OM: Order cancelled - Patient discharged Performed By: #### L 500.4100, L100.0500, L500.2500 #### [facility] [address] [place], [address] Potassium Normal 3.3-5.1 [facility] Comment on above: Result Comment: Canc elled via OM: Order cancelled - Patient discharged Performed By: #### L 500.4100, L100.0500, L500.2500 #### [facility] [address] [place], [address] Basic Metabolic Profile (BMP) Normal 133-145 [facility] Comment on above: Result Comment: Canc elled via OM: Order cancelled - Patient discharged Performed By: #### L 500.4100, L100.0500, L500.2500 #### [facility] [address] [place], [address] CBC W/Diff, Automatedon 08-0 2-2024 Absolute Neut Normal 2.0-7.7 [facility] Comment on above: Result Comment: Canc elled via OM: Order cancelled - Patient discharged Performed By: #### L 500.4100, L100.0500, L500.2500 #### [facility] [address] [place], [address] HCT Normal 40-54 [facility] Comment on above: Result Comment: Canc elled via OM: Order cancelled - Patient discharged Performed By: #### L 500.4100, L100.0500, L500.2500 #### [facility] [address] [place], [address] HGB Normal 13.0-16.5 [facility] Comment on above: Result Comment: Canc elled via OM: Order cancelled - Patient discharged Performed By: #### L 500.4100, L100.0500, L500.2500 #### [facility] [address] [place], [address] MCH Normal 27.0-32.0 [facility] Comment on above: Result Comment: Canc elled via OM: Order cancelled - Patient discharged Performed By: #### L 500.4100, L100.0500, L500.2500 #### [facility] [address] [place], [address] MCHC Normal 32-36 [facility] Comment on above: Result Comment: Canc elled via OM: Order cancelled - Patient discharged Performed By: #### L 500.4100, L100.0500, L500.2500 #### [facility] [address] [place], [address] MCV Normal 80-94 [facility] Comment on above: Result Comment: Canc elled via OM: Order cancelled - Patient discharged Performed By: #### L 500.4100, L100.0500, L500.2500 #### [facility] [address] [place], [address] NEUT% Normal 47-70 [facility] Comment on above: Result Comment: Canc elled via OM: Order cancelled - Patient discharged Performed By: #### L 500.4100, L100.0500, L500.2500 #### [facility] [address] [place], [address] PLT Normal 150-450 [facility] Comment on above: Result Comment: Canc elled via OM: Order cancelled - Patient discharged Performed By: #### L 500.4100, L100.0500, L500.2500 #### [facility] [address] [place], [address] RBC Normal 4.6-6.2 [facility] Comment on above: Result Comment: Canc elled via OM: Order cancelled - Patient discharged Performed By: #### L 500.4100, L100.0500, L500.2500 #### [facility] [address] [place], [address] RDW CV Normal 11.6-14.6 [facility] Comment on above: Result Comment: Canc elled via OM: Order cancelled - Patient discharged Performed By: #### L 500.4100, L100.0500, L500.2500 #### [facility] [address] [place], [address] RDW SD Normal 35.1-43.9 [facility] Comment on above: Result Comment: Canc elled via OM: Order cancelled - Patient discharged Performed By: #### L 500.4100, L100.0500, L500.2500 #### [facility] [address] [place], [address] WBC Normal 4.4-11.0 [facility] Comment on above: Result Comment: Canc elled via OM: Order cancelled - Patient discharged Performed By: #### L 500.4100, L100.0500, L500.2500 #### [facility] [address] [place], [address] Basic Metabolic Profile (BMP )on 02-11-2025 BUN Normal 4-19 [facility] Comment on above: Result Comment: Canc elled via OM: Order cancelled - Patient discharged Performed By: #### L 100.0100, L500.2500 #### [facility] [address] [place], [address] BUN/CRE Normal 10-20 [facility] Comment on above: Result Comment: Canc elled via OM: Order cancelled - Patient discharged Performed By: #### L 100.0100, L500.2500 #### [facility] [address] [place], [address] Calcium Normal 7.6-11.0 [facility] Comment on above: Result Comment: Canc elled via OM: Order cancelled - Patient discharged Performed By: #### L 100.0100, L500.2500 #### [facility] [address] [place], [address] CL Normal 98-108 [facility] Comment on above: Result Comment: Canc elled via OM: Order cancelled - Patient discharged Performed By: #### L 100.0100, L500.2500 #### [facility] [address] [place], [address] CO2 Normal 21.0-32.0 [facility] Comment on above: Result Comment: Canc elled via OM: Order cancelled - Patient discharged Performed By: #### L 100.0100, L500.2500 #### [facility] [address] [place], [address] CREAT,SERUM Normal 0.70-1.20 [facility] Comment on above: Result Comment: Canc elled via OM: Order cancelled - Patient discharged Performed By: #### L 100.0100, L500.2500 #### [facility] [address] [place], [address] eGFR Normal >60 [facility] Comment on above: Result Comment: Canc elled via OM: Order cancelled - Patient discharged Performed By: #### L 100.0100, L500.2500 #### [facility] [address] [place], [address] GAP Normal 5-15 [facility] Comment on above: Result Comment: Canc elled via OM: Order cancelled - Patient discharged Performed By: #### L 100.0100, L500.2500 #### [facility] [address] [place], [address] GLU Normal 70-99 [facility] Comment on above: Result Comment: Canc elled via OM: Order cancelled - Patient discharged Performed By: #### L 100.0100, L500.2500 #### [facility] [address] [place], [address] Potassium Normal 3.3-5.1 [facility] Comment on above: Result Comment: Canc elled via OM: Order cancelled - Patient discharged Performed By: #### L 100.0100, L500.2500 #### [facility] [address] [place], [address] Basic Metabolic Profile (BMP) Normal 133-145 [facility] Comment on above: Result Comment: Canc elled via OM: Order cancelled - Patient discharged Performed By: #### L 100.0100, L500.2500 #### [facility] [address] [place], [address] CBC W/Diff, Automatedon 08-0 Absolute Neut Normal 2.0-7.7 [facility] Comment on above: Result Comment: Canc elled via OM: Order cancelled - Patient discharged Performed By: #### L 100.0100, L500.2500 #### [facility] [address] [place], [address] HCT Normal 40-54 [facility] Comment on above: Result Comment: Canc elled via OM: Order cancelled - Patient discharged Performed By: #### L 100.0100, L500.2500 #### [facility] [address] [place], [address] HGB Normal 13.0-16.5 [facility] Comment on above: Result Comment: Canc elled via OM: Order cancelled - Patient discharged Performed By: #### L 100.0100, L500.2500 #### [facility] [address] [place], [address] MCH Normal 27.0-32.0 [facility] Comment on above: Result Comment: Canc elled via OM: Order cancelled - Patient discharged Performed By: #### L 100.0100, L500.2500 #### [facility] [address] [place], [address] MCHC Normal 32-36 [facility] Comment on above: Result Comment: Canc elled via OM: Order cancelled - Patient discharged Performed By: #### L 100.0100, L500.2500 #### [facility] [address] [place], [address] MCV Normal 80-94 [facility] Comment on above: Result Comment: Canc elled via OM: Order cancelled - Patient discharged Performed By: #### L 100.0100, L500.2500 #### [facility] [address] [place], [address] NEUT% Normal 47-70 [facility] Comment on above: Result Comment: Canc elled via OM: Order cancelled - Patient discharged Performed By: #### L 100.0100, L500.2500 #### [facility] [address] [place], [address] PLT Normal 150-450 [facility] Comment on above: Result Comment: Canc elled via OM: Order cancelled - Patient discharged Performed By: #### L 100.0100, L500.2500 #### [facility] [address] [place], [address] RBC Normal 4.6-6.2 [facility] Comment on above: Result Comment: Canc elled via OM: Order cancelled - Patient discharged Performed By: #### L 100.0100, L500.2500 #### [facility] [address] [place], [address] RDW CV Normal 11.6-14.6 [facility] Comment on above: Result Comment: Canc elled via OM: Order cancelled - Patient discharged Performed By: #### L 100.0100, L500.2500 #### [facility] [address] [place], [address] RDW SD Normal 35.1-43.9 [facility] Comment on above: Result Comment: Canc elled via OM: Order cancelled - Patient discharged Performed By: #### L 100.0100, L500.2500 #### [facility] [address] [place], [address] WBC Normal 4.4-11.0 [facility] Comment on above: Result Comment: Canc elled via OM: Order cancelled - Patient discharged Performed By: #### L 100.0100, L500.2500 #### [facility] [address] [place], [address] Absolute lymphocyte countOrd ered By: Isadora Arndt on 02-10-2025 Lymphocytes Auto (Unsp spec) [#/Vol] 0.89 10*3/uL 0.83-4.51 [facility] Absolute neutrophil countOrd ered By: Isadora Arndt on 02-10-2025 Neutrophils (Bld) [#/Vol] 2.8 10*3/uL 2.0-7.7 [facility] Anion gap in Serum or Plasma Ordered By: Isadora Arndt on 02-10-2025 Anion gap [Moles/Vol] 11 mmol/L 5-15 [facility] Automated lymphocyte count a s percentage of total leukocytesOrdered By: Isadora Arndt on 02-10-2025 Lymphocytes/100 WBC Auto (Unsp spec) 20.9 % 19-41 [facility] BUN/creatinine ratioOrdered By: Isadora Arndt on 02-10-2025 Urea nitrogen/Creatinine [Mass ratio] 26.4 mg/mg High 10-20 [facility] Basic Metabolic Profile (BMP )on 02-10-2025 BUN/CRE 26.4 RATIO High - [facility] Comment on above: Performed By: #### L 100.0100, L500.2500 #### [facility] [address] [place], [address] Calcium [Mass/Vol] 8.6 mg/dL Normal 7.6-11.0 [facility] Comment on above: Performed By: #### L 100.0100, L500.2500 #### [facility] [address] [place], [address] Chloride [Moles/Vol] 106 mmol/L Normal 98-108 [facility] Comment on above: Performed By: #### L 100.0100, L500.2500 #### [facility] [address] [place], [address] CO2 [Moles/Vol] 21.5 mmol/L Normal 21.0-32.0 [facility] Comment on above: Performed By: #### L 100.0100, L500.2500 #### [facility] [address] [place], [address] Creatinine [Mass/Vol] 1.18 mg/dL Normal 0.70-1.20 [facility] Comment on above: Performed By: #### L 100.0100, L500.2500 #### [facility] [address] [place], [address] ECRCL 38.71 ml/min Low 50-250 [facility] Comment on above: Performed By: #### L 100.0100, L500.2500 #### [facility] [address] [place], [address] GAP 11 Normal 5-15 [facility] Comment on above: Performed By: #### L 100.0100, L500.2500 #### [facility] [address] [place], [address] GFR/1.73 sq M.predicted among non-blacks MDRD (S/P/Bld) [Vol rate/Area] 62 mL/min/{1.73_m2} Normal >60 [facility] Comment on above: Result Comment: mL/m in/1.73m2 CKD-EPI Creatinine Equation (2020) Performed By: #### L 100.0100, L500.2500 #### [facility] [address] [place], [address] Glucose [Mass/Vol] 99 mg/dL Normal 70-99 [facility] Comment on above: Performed By: #### L 100.0100, L500.2500 #### [facility] [address] [place], [address] Potassium [Moles/Vol] 3.5 mmol/L Normal 3.3-5.1 [facility] Comment on above: Performed By: #### L 100.0100, L500.2500 #### [facility] [address] [place], [address] Sodium [Moles/Vol] 138 mmol/L Normal 133-145 [facility] Comment on above: Performed By: #### L 100.0100, L500.2500 #### [facility] [address] [place], [address] Urea nitrogen [Mass/Vol] 31 mg/dL High 4-19 [facility] Comment on above: Performed By: #### L 100.0100, L500.2500 #### [facility] [address] [place], [address] Basophil percentageOrdered B y: Isadora Arndt on 02-10-2025 Basophils/100 WBC (Bld) 0.5 % 0-1 [facility] CBC W/Diff, Automatedon - Absolute Lymph 0.89 X10 3/uL Normal 0.83-4.51 [facility] Comment on above: Performed By: #### L 100.0100, L500.2500 #### [facility] [address] [place], [address] Absolute Neut 2.8 X10 3/uL Normal 2.0-7.7 [facility] Comment on above: Performed By: #### L 100.0100, L500.2500 #### [facility] [address] [place], [address] Basophils/100 WBC (Bld) 0.5 % Normal 0-1 [facility] Comment on above: Performed By: #### L 100.0100, L500.2500 #### [facility] [address] [place], [address] Eosinophils/100 WBC (Bld) 0.9 % Normal 0-5 [facility] Comment on above: Performed By: #### L 100.0100, L500.2500 #### [facility] [address] [place], [address] Erythrocyte distribution width (RBC) [Ratio] 12.6 % Normal 11.6-14.6 [facility] Comment on above: Performed By: #### L 100.0100, L500.2500 #### [facility] [address] [place], [address] Hematocrit (Bld) [Volume fraction] 29.3 % Low 40-54 [facility] Comment on above: Performed By: #### L 100.0100, L500.2500 #### [facility] [address] [place], [address] Hemoglobin (Bld) [Mass/Vol] 10.2 g/dL Low 13.0-16.5 [facility] Comment on above: Performed By: #### L 100.0100, L500.2500 #### [facility] [address] [place], [address] IG% 0.700 Normal 0.0-0.9 [facility] Comment on above: Result Comment: IG% - Immature Granulocytes (promyelocytes, myelocytes and metamyelocytes) > 1% indicates that a LEFT SHIFT is Present. Performed By: #### L 100.0100, L500.2500 #### [facility] [address] [place], [address] Lymphocytes/100 WBC (Bld) 20.9 % Normal 19-41 [facility] Comment on above: Performed By: #### L 100.0100, L500.2500 #### [facility] [address] [place], [address] MCH (RBC) [Entitic mass] 32.1 pg High 27.0-32.0 [facility] Comment on above: Performed By: #### L 100.0100, L500.2500 #### [facility] [address] [place], [address] MCHC (RBC) [Mass/Vol] 34.8 g/dL Normal 32-36 [facility] Comment on above: Performed By: #### L 100.0100, L500.2500 #### [facility] [address] [place], [address] MCV (RBC) [Entitic vol] 92.1 fL Normal 80-94 [facility] Comment on above: Performed By: #### L 100.0100, L500.2500 #### [facility] [address] [place], [address] Monocytes/100 WBC (Bld) 10.1 % High 0-10 [facility] Comment on above: Performed By: #### L 100.0100, L500.2500 #### [facility] [address] [place], [address] Neutrophils/100 WBC (Bld) 66.9 % Normal 47-70 [facility] Comment on above: Performed By: #### L 100.0100, L500.2500 #### [facility] [address] [place], [address] Nucleated RBC (Bld) [#/Vol] 0 10*3/uL Normal 0-5 [facility] Comment on above: Performed By: #### L 100.0100, L500.2500 #### [facility] [address] [place], [address] Platelet mean volume (Bld) [Entitic vol] 11.6 fL Normal 6.2-12.0 [facility] Comment on above: Performed By: #### L 100.0100, L500.2500 #### [facility] [address] [place], [address] Platelets (Bld) [#/Vol] 107 10*3/uL Low 150-450 [facility] Comment on above: Performed By: #### L 100.0100, L500.2500 #### [facility] [address] [place], [address] RBC (Bld) [#/Vol] 3.18 10*6/uL Low 4.6-6.2 [facility] Comment on above: Performed By: #### L 100.0100, L500.2500 #### [facility] [address] [place], [address] RDW SD 42.1 fl Normal 35.1-43.9 [facility] Comment on above: Performed By: #### L 100.0100, L500.2500 #### [facility] [address] [place], [address] WBC (Bld) [#/Vol] 4.3 10*3/uL Low 4.4-11.0 [facility] Comment on above: Performed By: #### L 100.0100, L500.2500 #### [facility] [address] [place], [address] Carbon dioxide, total [Moles /volume] in Central venous bloodOrdered By: Isadora Arndt on 02-10-2025 CO2 [Moles/Vol] 21.5 mmol/L 21.0-32.0 [facility] Chloride assayOrdered By: Greta Arndt on 02-10-2025 Chloride [Moles/Vol] 106 mmol/L 98-108 [facility] Eosinophil percentageOrdered By: Isadora Arndt on 07-31-2025 Eosinophils/100 WBC (Bld) 0.9 % 0-5 [facility] Erythrocyte distribution wid th ratioOrdered By: Isadorajm Arndt on 02-10-2025 Erythrocyte distribution width (RBC) [Ratio] 12.6 % 11.6-14.6 [facility] Erythrocyte distribution wid th standard deviationOrdered By: [facility] Erythrocyte distribution width (RBC) [Ratio] 42.1 fl 35.1-43.9 [facility] Glomerular filtration rate ( GFR) estimation/1.73 sq m using serum, plasma, or whole bOrdered By: Isadora [facility] GFR/1.73 sq M.predicted among non-blacks MDRD (S/P/Bld) [Vol rate/Area] 62 mL/min/{1.73_m2} >60 [facility] Comment on above: mL/min/1.73m2 CKD-EP I Creatinine Equation (2020) Hematocrit Auto (Bld) [Volum e fraction]Ordered By: [facility] Hematocrit (Bld) [Volume fraction] 29.3 % Low 40-54 [facility] Hemoglobin measurementOrdere d By: [facility] 02-10-2025 Hemoglobin (Bld) [Mass/Vol] 10.2 g/dL Low 13.0-16.5 [facility] Immature granulocytes/100 WB C Auto (Bld)Ordered By: Isadorajm Arndt 02-10-2025 Immature granulocytes/100 WBC (Bld) 0.700 % 0.0-0.9 [facility] Comment on above: IG% - Immature Granu locytes (promyelocytes, myelocytes and metamyelocytes) > 1% indicates that a LEFT SHIFT is Present. MCV (mean corpuscular volume ) determinationOrdered By: Isadora [facility] 02-10-2025 MCV (RBC) [Entitic vol] 92.1 fL 80-94 [facility] Mean corpuscular hemoglobin (MCH) determinationOrdered By: [facility] 02-10-2025 MCH (RBC) [Entitic mass] 32.1 pg High 27.0-32.0 [facility] Mean corpuscular hemoglobin concentration (MCHC) determinationOrdered By: Isadora Arndt on 02-10-2025 MCHC (RBC) [Mass/Vol] 34.8 g/dL 32-36 [facility] Mean platelet volume determi nationOrdered By: Isadora Arndt on 02-10-2025 Platelet mean volume (Bld) [Entitic vol] 11.6 fL 6.2-12.0 [facility] Monocyte percentageOrdered B y: Isadora Arndt on 02-10-2025 Monocytes/100 WBC (Bld) 10.1 % High 0-10 [facility] Neutrophil percentageOrdered By: Isadora Arndt on 02-10-2025 Neutrophils/100 WBC (Bld) 66.9 % 47-70 [facility] Nucleated red blood cell per centageOrdered By: Isadora Arndt on 02-10-2025 Nucleated RBC/100 WBC (Bld) [Ratio] 0 % 0-5 [facility] Platelet countOrdered By: Na greta Arndt on 02-10-2025 Platelets (Bld) [#/Vol] 107 10*3/uL Low 150-450 [facility] Potassium measurement (mass/ volume)Ordered By: Isadora Arndt on 02-10-2025 Potassium (Unsp spec) [Mass/Vol] 3.5 mmol/L 3.3-5.1 [facility] RBC Auto (Bld) [#/Vol]Ordere d By: sIadora Arndt on 02-10-2025 RBC (Bld) [#/Vol] 3.18 10*6/uL Low 4.6-6.2 [facility] Serum creatinine measurement (mass/volume)Ordered By: Isadora Arndt 02-10-2025 Creatinine [Mass/Vol] 1.18 mg/dL 0.70-1.20 [facility] Serum glucose measurement (m ass/volume)Ordered By: Isadora Arndt on 02-10-2025 Glucose [Mass/Vol] 99 mg/dL 70-99 [facility] Serum or plasma calcium diane urement (mass/volume)Ordered By: Isadora Arndt 02-10-2025 Calcium [Mass/Vol] 8.6 mg/dL 7.6-11.0 [facility] Serum or plasma urea nitroge n measurement (mass/volume)Ordered By: Isadora Arndt on 02-10-2025 Urea nitrogen [Mass/Vol] 31 mg/dL High 4-19 [facility] Sodium levelOrdered By: Isadorajm Arndt on 02-10-2025 Sodium [Moles/Vol] 138 mmol/L 133-145 [facility] White blood cell (WBC) count Ordered By: Isadorajm Arndt on 02-10-2025 WBC (Bld) [#/Vol] 4.3 10*3/uL Low 4.4-11.0 [facility] Basic Metabolic Profile (BMP )on 02-09-2025 BUN/CRE 28.7 RATIO High 10-20 [facility] Comment on above: Performed By: #### L 500.2500, L100.0500 #### [facility] [address] [place], [address] Calcium [Mass/Vol] 8.4 mg/dL Normal 7.6-11.0 [facility] Comment on above: Performed By: #### L 500.2500, L100.0500 #### [facility] [address] [place], [address] Chloride [Moles/Vol] 107 mmol/L Normal 98-108 [facility] Comment on above: Performed By: #### L 500.2500, L100.0500 #### [facility] [address] [place], [address] CO2 [Moles/Vol] 20.2 mmol/L Low 21.0-32.0 [facility] Comment on above: Performed By: #### L 500.2500, L100.0500 #### [facility] [address] [place], [address] Creatinine [Mass/Vol] 1.08 mg/dL Normal 0.70-1.20 [facility] Comment on above: Performed By: #### L 500.2500, L100.0500 #### [facility] [address] [place], [address] ECRCL 42.29 ml/min Low 50-250 [facility] Comment on above: Performed By: #### L 500.2500, L100.0500 #### [facility] [address] [place], [address] GAP 12 Normal 5-15 [facility] Comment on above: Performed By: #### L 500.2500, L100.0500 #### [facility] [address] [place], [address] GFR/1.73 sq M.predicted among non-blacks MDRD (S/P/Bld) [Vol rate/Area] 69 mL/min/{1.73_m2} Normal >60 [facility] Comment on above: Result Comment: mL/m in/1.73m2 CKD-EPI Creatinine Equation (2020) Performed By: #### L 500.2500, L100.0500 #### [facility] [address] [place], [address] Glucose [Mass/Vol] 88 mg/dL Normal 70-99 [facility] Comment on above: Performed By: #### L 500.2500, L100.0500 #### [facility] [address] [place], [address] Potassium [Moles/Vol] 3.5 mmol/L Normal 3.3-5.1 [facility] Comment on above: Performed By: #### L 500.2500, L100.0500 #### [facility] [address] [place], [address] Sodium [Moles/Vol] 139 mmol/L Normal 133-145 [facility] Comment on above: Performed By: #### L 500.2500, L100.0500 #### [facility] [address] [place], [address] Urea nitrogen [Mass/Vol] 31 mg/dL High 4-19 [facility] Comment on above: Performed By: #### L 500.2500, L100.0500 #### [facility] [address] [place], [address] CBC-Complete Blood Cnt No Di ffon 02-09-2025 Erythrocyte distribution width (RBC) [Ratio] 12.6 % Normal 11.6-14.6 [facility] Comment on above: Performed By: #### L 500.2500, L100.0500 #### [facility] [address] [place], [address] Hematocrit (Bld) [Volume fraction] 30.8 % Low 40-54 [facility] Comment on above: Performed By: #### L 500.2500, L100.0500 #### [facility] [address] [place], [address] Hemoglobin (Bld) [Mass/Vol] 10.6 g/dL Low 13.0-16.5 [facility] Comment on above: Performed By: #### L 500.2500, L100.0500 #### [facility] [address] [place], [address] MCH (RBC) [Entitic mass] 31.8 pg Normal 27.0-32.0 [facility] Comment on above: Performed By: #### L 500.2500, L100.0500 #### [facility] [address] [place], [address] MCHC (RBC) [Mass/Vol] 34.4 g/dL Normal 32-36 [facility] Comment on above: Performed By: #### L 500.2500, L100.0500 #### [facility] [address] [place], [address] MCV (RBC) [Entitic vol] 92.5 fL Normal 80-94 [facility] Comment on above: Performed By: #### L 500.2500, L100.0500 #### [facility] [address] [place], [address] Platelet mean volume (Bld) [Entitic vol] 11.4 fL Normal 6.2-12.0 [facility] Comment on above: Performed By: #### L 500.2500, L100.0500 #### [facility] [address] [place], [address] Platelets (Bld) [#/Vol] 102 10*3/uL Low 150-450 [facility] Comment on above: Performed By: #### L 500.2500, L100.0500 #### [facility] [address] [place], [address] RBC (Bld) [#/Vol] 3.33 10*6/uL Low 4.6-6.2 [facility] Comment on above: Performed By: #### L 500.2500, L100.0500 #### [facility] [address] [place], [address] RDW SD 41.6 fl Normal 35.1-43.9 [facility] Comment on above: Performed By: #### L 500.2500, L100.0500 #### [facility] [address] [place], [address] WBC (Bld) [#/Vol] 3.8 10*3/uL Low 4.4-11.0 [facility] Comment on above: Performed By: #### L 500.2500, L100.0500 #### [facility] [address] [place], [address] Electrocardiogram reportOrde red By: Wolfgang Conde on 02-09-2025 EKG study [facility] Cardiovascular Services [address] [place] [address] 12 Lead EKG 02/08/25 1245 MR#: [id number] Acct: [id number] Name: SOPHIA CORTES Rep #:[id number] : 1940 84 From: Wolfgang Conde MD [...] Abnormal ECG Confirmed by ELTON REZA, WOLFGANG ([id number]), production editor ZANA ROOT ([id number]) on 58:35:44 AM Referred By: Confirmed By: WOLFGANG CONDE MD 02/09/25 0835 Date _ Wolfgang Conde MD CC: Dr. Isadora Arndt MD; Dr. Michael Allen DO; No Primary Care Physician ~ Signed [facility] Work Phone: Testicular with Arterial [place] won 02-09-2025 Testicular with Arterial Flow [facility] Imaging Services [address] [place] [address] Testicular with Arterial Flow MR#: [id number] Acct: [id number] Name: SOPHIA CORTES Rep #: [id number] : 1940 M 84 From: Aleksandr lazo MD PCP: Care Physician,No Primary Status: ADM MARCELA Study: Testicular with Arterial Flow Date of Exam: Exam# [id number] Ordering Dr: Isadora Arndt MD PROCEDURE: TESTICULAR [...] as described. Small left hydrocele. Reading Location: [id number] CC: Dr. Isadora Arndt MD; No Primary Care Physician Electronics Production Supervisor: Signed Normal [facility] 12 Lead EKGon 02-08-2025 12 Lead EKG [facility] Cardiovascular Services [address] [place] [address] 12 Lead EKG 02/08/25 1245 MR#: [id number] Acct: [id number] Name: SOPHIA CORTES Rep #: [id number] : 1940 84 From: Wolfgang Conde MD Attending Dr: Dr. Isadora Arndt MD Status: AD M MARCELA Ordering Dr: Michael Allen DO Date: 02/08/25 Location: [facility] Sex: M C Admitted: 02/08/25 Test Reason [...] ECG Confirmed by WOLFGANG CONDE MD ([id number]), production editor ZANA ROOT ([id number]) on 02/09/2025 8:35:44 AM Referred By: Confirmed By: WOLFGANG CONDE MD 02/09/25 0835 Date Wolfgang Conde MD CC: Dr. Isadora Arndt MD; Dr. Michael Allen, DO; No Primary Care Physician Signed Normal [facility] Absolute lymphocyte countOrd ered By: Michael Allen on 02-08-2025 Lymphocytes Auto (Unsp spec) [#/Vol] 0.74 10*3/uL Low 0.83-4.51 [facility] Absolute neutrophil countOrd ered By: Michael Allen on 02-08-2025 Neutrophils (Bld) [#/Vol] 4.0 10*3/uL 2.0-7.7 [facility] Anion gap in Serum or Plasma Ordered By: Michael Allen on 02-08-2025 Anion gap [Moles/Vol] 14 mmol/L 5-15 [facility] Automated lymphocyte count a s percentage of total leukocytesOrdered By: Michael Allen on 02-08-2025 Lymphocytes/100 WBC Auto (Unsp spec) 13.6 % Low 19-41 [facility] BUN/creatinine ratioOrdered By: Michael Allen on 02-08-2025 Urea nitrogen/Creatinine [Mass ratio] 23.5 mg/mg High 10-20 [facility] Basophil percentageOrdered B y: Michael Allen on 02-08-2025 Basophils/100 WBC (Bld) 0.2 % 0-1 [facility] Bilirubin Test strip Ql (U)O rdered By: Michael Allen on 02-08-2025 Bilirubin Ql (U) Negative Negative [facility] Bilirubin, totalOrdered By: Michael Allen on 02-08-2025 Bilirubin [Mass/Vol] 1.16 mg/dL 0.00-1.30 [facility] Brain/Head without Contrasto n 02-08-2025 Brain/Head without Contrast [facility] Imaging Services [address] [place] [address] Brain/Head without Contrast MR#: [id number] Acct: [id number] Name: CAITYJOSESOPHIA D Rep #: [id number] : 1940 M 84 From: Emilio Sullivan MD PCP: Care Physician,No Primary Status: REG ER Study: Brain/Head without Contrast Date of Exam: 01/12 04/07 Exam# [id number] Ordering Dr: Michael Allen DO EXAM: NONCONTRAST [...] Michael Allen DO; No Primary Care Physician Electronics Production Supervisor: Signed Normal [facility] CBC W/Diff, Automatedon 07-2 Absolute Lymph 0.74 X10 3/uL Low 0.83-4.51 [facility] Comment on above: Performed By: #### L 500.2500, L100.0500 #### [facility] [address] [place], [address] Absolute Neut 4.0 X10 3/uL Normal 2.0-7.7 [facility] Comment on above: Performed By: #### L 500.2500, L100.0500 #### [facility] [address] [place], [address] Basophils/100 WBC (Bld) 0.2 % Normal 0-1 [facility] Comment on above: Performed By: #### L 500.2500, L100.0500 #### [facility] [address] [place], [address] Eosinophils/100 WBC (Bld) 0.7 % Normal 0-5 [facility] Comment on above: Performed By: #### L 500.2500, L100.0500 #### [facility] [address] [place], [address] Erythrocyte distribution width (RBC) [Ratio] 12.8 % Normal 11.6-14.6 [facility] Comment on above: Performed By: #### L 500.2500, L100.0500 #### [facility] [address] [place], [address] Hematocrit (Bld) [Volume fraction] 35.5 % Low 40-54 [facility] Comment on above: Performed By: #### L 500.2500, L100.0500 #### [facility] [address] [place], [address] Hemoglobin (Bld) [Mass/Vol] 12.1 g/dL Low 13.0-16.5 [facility] Comment on above: Performed By: #### L 500.2500, L100.0500 #### [facility] [address] [place], [address] IG% 0.400 Normal 0.0-0.9 [facility] Comment on above: Result Comment: IG% - Immature Granulocytes (promyelocytes, myelocytes and metamyelocytes) > 1% indicates that a LEFT SHIFT is Present. Performed By: #### L 500.2500, L100.0500 #### [facility] [address] [place], [address] Lymphocytes/100 WBC (Bld) 13.6 % Low 19-41 [facility] Comment on above: Performed By: #### L 500.2500, L100.0500 #### [facility] [address] [place], [address] MCH (RBC) [Entitic mass] 31.8 pg Normal 27.0-32.0 [facility] Comment on above: Performed By: #### L 500.2500, L100.0500 #### [facility] [address] [place], [address] MCHC (RBC) [Mass/Vol] 34.1 g/dL Normal 32-36 [facility] Comment on above: Performed By: #### L 500.2500, L100.0500 #### [facility] [address] [place], [address] MCV (RBC) [Entitic vol] 93.2 fL Normal 80-94 [facility] Comment on above: Performed By: #### L 500.2500, L100.0500 #### [facility] [address] [place], [address] Monocytes/100 WBC (Bld) 10.7 % High 0-10 [facility] Comment on above: Performed By: #### L 500.2500, L100.0500 #### [facility] [address] [place], [address] Neutrophils/100 WBC (Bld) 74.4 % High 47-70 [facility] Comment on above: Performed By: #### L 500.2500, L100.0500 #### [facility] [address] [place], [address] Nucleated RBC (Bld) [#/Vol] 0 10*3/uL Normal 0-5 [facility] Comment on above: Performed By: #### L 500.2500, L100.0500 #### [facility] [address] [place], [address] Platelet mean volume (Bld) [Entitic vol] 11.4 fL Normal 6.2-12.0 [facility] Comment on above: Performed By: #### L 500.2500, L100.0500 #### [facility] [address] [place], [address] Platelets (Bld) [#/Vol] 121 10*3/uL Low 150-450 [facility] Comment on above: Performed By: #### L 500.2500, L100.0500 #### [facility] [address] [place], [address] RBC (Bld) [#/Vol] 3.81 10*6/uL Low 4.6-6.2 [facility] Comment on above: Performed By: #### L 500.2500, L100.0500 #### [facility] [address] [place], [address] RDW SD 43.7 fl Normal 35.1-43.9 [facility] Comment on above: Performed By: #### L 500.2500, L100.0500 #### [facility] [address] [place], [address] WBC (Bld) [#/Vol] 5.4 10*3/uL Normal 4.4-11.0 [facility] Comment on above: Performed By: #### L 500.2500, L100.0500 #### [facility] [address] [place], [address] Carbon dioxide, total [Moles /volume] in Central venous bloodOrdered By: Michael Allen on 02-08-2025 CO2 [Moles/Vol] 21.7 mmol/L 21.0-32.0 [facility] Chest 1 View (Portable)on Chest 1 View (Portable) [facility] Imaging Services [address] [place] [address] Chest 1 View (Portable) MR#: [id number] Acct: [id number] Name: SOPHIA CORTES Rep #: [id number] : 1940 M 84 From: Tomi Lindsay MD PCP: Care Physician,No Primary Status: REG ER Study: Chest 1 View (Portable) Date of Exam: 02/08/25 Exam# [id number] Ordering Dr: Michael Allen DO EXAM: XR [...] IMPRESSION: No acute cardiopulmonary process. Reading Location[facility] CC: Dr. Michael Allen DO; No Primary Care Physician Electronics Production Supervisor: Signed Normal [facility] Chloride assayOrdered By: Briana Allen on 02-08-2025 Chloride [Moles/Vol] 102 mmol/L 98-108 [facility] Comprehensive Metabolic Prof ilon 02-08-2025 Albumin [Mass/Vol] 3.9 g/dL Normal 3.4-4.8 [facility] Comment on above: Performed By: #### L 500.2500, L100.0500 #### [facility] [address] [place], [address] Albumin/Globulin [Mass ratio] 1.4 {ratio} Normal 0.9-2.4 [facility] Comment on above: Performed By: #### L 500.2500, L100.0500 #### [facility] [address] [place], [address] ALK PHOS 91 U/L Normal 40-129 [facility] Comment on above: Performed By: #### L 500.2500, L100.0500 #### [facility] [address] [place], [address] ALT [Catalytic activity/Vol] 9 U/L Normal <=46 [facility] Comment on above: Performed By: #### L 500.2500, L100.0500 #### [facility] [address] [place], [address] AST [Catalytic activity/Vol] 19 U/L Normal <=37 [facility] Comment on above: Performed By: #### L 500.2500, L100.0500 #### [facility] [address] [place], [address] Bilirubin [Mass/Vol] 1.16 mg/dL Normal 0.00-1.30 [facility] Comment on above: Performed By: #### L 500.2500, L100.0500 #### [facility] [address] [place], [address] BUN/CRE 23.5 RATIO High 10-20 [facility] Comment on above: Performed By: #### L 500.2500, L100.0500 #### [facility] [address] [place], [address] Calcium [Mass/Vol] 9.2 mg/dL Normal 7.6-11.0 [facility] Comment on above: Performed By: #### L 500.2500, L100.0500 #### [facility] [address] [place], [address] Chloride [Moles/Vol] 102 mmol/L Normal 98-108 [facility] Comment on above: Performed By: #### L 500.2500, L100.0500 #### [facility] [address] [place], [address] CO2 [Moles/Vol] 21.7 mmol/L Normal 21.0-32.0 [facility] Comment on above: Performed By: #### L 500.2500, L100.0500 #### [facility] [address] [place], [address] Creatinine [Mass/Vol] 1.64 mg/dL High 0.70-1.20 [facility] Comment on above: Performed By: #### L 500.2500, L100.0500 #### [facility] [address] [place], [address] ECRCL 27.90 ml/min Low 50-250 [facility] Comment on above: Performed By: #### L 500.2500, L100.0500 #### [facility] [address] [place], [address] GAP 14 Normal 5-15 [facility] Comment on above: Performed By: #### L 500.2500, L100.0500 #### [facility] [address] [place], [address] GFR/1.73 sq M.predicted among non-blacks MDRD (S/P/Bld) [Vol rate/Area] 42 mL/min/{1.73_m2} Low >60 [facility] Comment on above: Result Comment: mL/m in/1.73m2 CKD-EPI Creatinine Equation (2020) Performed By: #### L 500.2500, L100.0500 #### [facility] [address] [place], [address] Globulin (S) [Mass/Vol] 2.8 g/dL Normal 2.2-4.2 [facility] Comment on above: Performed By: #### L 500.2500, L100.0500 #### [facility] [address] [place], [address] Glucose [Mass/Vol] 132 mg/dL High 70-99 [facility] Comment on above: Performed By: #### L 500.2500, L100.0500 #### [facility] [address] [place], [address] Potassium [Moles/Vol] 3.7 mmol/L Normal 3.3-5.1 [facility] Comment on above: Performed By: #### L 500.2500, L100.0500 #### [facility] [address] [place], [address] Sodium [Moles/Vol] 137 mmol/L Normal 133-145 [facility] Comment on above: Performed By: #### L 500.2500, L100.0500 #### [facility] [address] [place], [address] T PROT 6.7 g/dL Normal 5.9-8.4 [facility] Comment on above: Performed By: #### L 500.2500, L100.0500 #### [facility] [address] [place], [address] Urea nitrogen [Mass/Vol] 39 mg/dL High 4-19 [facility] Comment on above: Performed By: #### L 500.2500, L100.0500 #### [facility] [address] [place], [address] Emergency Department Summary on 02-08-2025 Emergency Department Summary [facility] Medical Records Department [address] [place] [address] Emergency Department Summary 02/08/25 MR#: [id number] Acct: [id number] Name: SOPHIA CORTES Rep #: [id number] : 1940 84 From: Michael Allen DO PCP: Care Physician,No Primary Status:ADM MARCELA Location: [address] History of Present Illness Chief Complaint: General Illness Detail of Chief Complaint: Failure to thrive and needing group home placement Informant: patient and family Narrative Narrative: Patient presents to the emergency department with his sister. He apparently is not doing well at home and lives alone. She feels he needs group home placement. Patient recently admitted to a psychiatric facility for suicidal ideation on January 23. Patient has history of some dementia. Sister has medical power of sports attorney for him. He is not eating and drinking normally. He is answering some questions but not really having conversations. Sister does not feel he can care for himself. He developed a slight cough a few days ago. [facility] Medical History (Updated 02/08/25 @ 13:[address] 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 Normal [facility] Eosinophil percentageOrdered By: Michael Allen on 02-08-2025 Eosinophils/100 WBC (Bld) 0.7 % 0-5 [facility] Erythrocyte distribution wid th ratioOrdered By: Michael Allen on 02-08-2025 Erythrocyte distribution width (RBC) [Ratio] 12.8 % 11.6-14.6 [facility] Erythrocyte distribution wid th standard deviationOrdered By: Michael Allen on 02-08-2025 Erythrocyte distribution width (RBC) [Ratio] 43.7 fl 35.1-43.9 [facility] Glomerular filtration rate ( GFR) estimation/1.73 sq m using serum, plasma, or whole bOrdered By: Michael Allen on 02-08-2025 GFR/1.73 sq M.predicted among non-blacks MDRD (S/P/Bld) [Vol rate/Area] 42 mL/min/{1.73_m2} Low >60 [facility] Comment on above: mL/min/1.73m2 CKD-EP I Creatinine Equation (2020) H AND P Exam - [facility] 02-08-2025 H&P Exam - Hospitalist [facility] Medical Records Department [address] [place] [address] H P Exam - Hospitalist 02/08/25 1345 MR#: [id number] Acct: [id number] Name: SOPHIA CORTES Rep #: [id number] : 1940 84 From: Ajith Zimmer DO PCP: Care Physician,No Primary Status:ADM MARCELA Location: [place] [address] HPI - General General Date of Admission: 02/08/25 Date of Service: 02/08/25 Chief Complaint: Failure to thrive HPI Narrative SOPHIA CORTES, is a 84 M who presented to [facility] ED on 02/08/2025 with adult failure to thrive. Patient lives at home alone. He was recently seen in the ED here on 01/23 for suicidal ideation and was admitted to a psychiatric facility for this. Has history of dementia and sister is medical power of sports attorney. Medical history otherwise significant for CAD [...] currently. Will be admitted for further management. 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 Normal [facility] Hematocrit Auto (Bld) [Volum e fraction]Ordered By: Michael Allen on 02-08-2025 Hematocrit (Bld) [Volume fraction] 35.5 % Low 40-54 [facility] Hemoglobin measurementOrdere d By: Michael Allen on 02-08-2025 Hemoglobin (Bld) [Mass/Vol] 12.1 g/dL Low 13.0-16.5 [facility] Immature granulocytes/100 WB C Auto (Bld)Ordered By: Michael Allen on 02-08-2025 Immature granulocytes/100 WBC (Bld) 0.400 % 0.0-0.9 [facility] Comment on above: IG% - Immature Granu locytes (promyelocytes, myelocytes and metamyelocytes) > 1% indicates that a LEFT SHIFT is Present. Influenza virus A and B and SARS-CoV-2 (COVID-19) and Respiratory syncytial virus RNAOrdered By: Michael Allen on 02-08-2025 SARS-CoV-2 (COVID-19) RNA JEAN+probe Ql (Unsp spec) [facility] Ketones Test strip Ql (U)Ord ered By: Michael Allen on 02-08-2025 Ketones Ql (U) 5 mg/dl High Negative [facility] Laboratory - Chemistry and C hemistry - challengeOrdered By: Michael Allen on 02-08-2025 AST [Catalytic activity/Vol] 19 U/L <38 [facility] M100.678on 02-08-2025 M100.678 SARS-CoV-2 (COVID 19) Negative INFLUENZA A Negative INFLUENZA B Negative RSV PCR Negative Normal [facility] Comment on above: Performed By: #### L 500.2500, L100.0500 #### [facility] [place], [address] MCV (mean corpuscular volume ) determinationOrdered By: Michael Allen on 02-08-2025 MCV (RBC) [Entitic vol] 93.2 fL 80-94 [facility] Mean corpuscular hemoglobin (MCH) determinationOrdered By: Michael Allne on 02-08-2025 MCH (RBC) [Entitic mass] 31.8 pg 27.0-32.0 [facility] Mean corpuscular hemoglobin concentration (MCHC) determinationOrdered By: Michael Allen on 02-08-2025 MCHC (RBC) [Mass/Vol] 34.1 g/dL 32-36 [facility] Mean platelet volume determi nationOrdered By: Michael Allen on 02-08-2025 Platelet mean volume (Bld) [Entitic vol] 11.4 fL 6.2-12.0 [facility] Microscopic analysis of urin e for red blood cells (RBC)Ordered By: Michael Allen on 02-08-2025 Microscopic analysis of urine for red blood cells (RBC) 0 SEEN /hpf 0-5 [facility] [facility] Monocyte percentageOrdered B y: Michael Allen on 02-08-2025 Monocytes/100 WBC (Bld) 10.7 % High 0-10 [facility] Mucus LM Ql (Urine sed)Order ed By: Michael Allen on 02-08-2025 Mucus Ql (Urine sed) 0 SEEN /hpf [facility] Neutrophil percentageOrdered By: Michael Allen on 02-08-2025 Neutrophils/100 WBC (Bld) 74.4 % High 47-70 [facility] Nitrite Test strip Ql (U)Ord ered By: Michael Allen on 02-08-2025 Nitrite Ql (U) Negative Negative [facility] Nucleated red blood cell per centageOrdered By: Michael Allen on 02-08-2025 Nucleated RBC/100 WBC (Bld) [Ratio] 0 % 0-5 [facility] Platelet countOrdered By: Briana shelly Alejandro on 02-08-2025 Platelets (Bld) [#/Vol] 121 10*3/uL Low 150-450 [facility] Potassium measurement (mass/ volume)Ordered By: Michael Allen on 02-08-2025 Potassium (Unsp spec) [Mass/Vol] 3.7 mmol/L 3.3-5.1 [facility] Protein Test strip Ql (U)Ord ered By: Michael Allen on 02-08-2025 Protein Ql (U) 30 mg/dl High Negative [facility] RBC Auto (Bld) [#/Vol]Ordere d By: Michael Allen on 02-08-2025 RBC (Bld) [#/Vol] 3.81 10*6/uL Low 4.6-6.2 [facility] Serum creatinine measurement (mass/volume)Ordered By: Michael Allen on 02-08-2025 Creatinine [Mass/Vol] 1.64 mg/dL High 0.70-1.20 [facility] Serum globulin measurementOr dered By: Michael Allen on 02-08-2025 Globulin (S) [Mass/Vol] 2.8 g/dL 2.2-4.2 [facility] Serum glucose measurement (m ass/volume)Ordered By: Michael Allen on 02-08-2025 Glucose [Mass/Vol] 132 mg/dL High 70-99 [facility] Serum or plasma alanine rutledge otransferase (ALT) measurementOrdered By: Michael Allen on 02-08-2025 ALT [Catalytic activity/Vol] 9 U/L <47 [facility] Serum or plasma albumin diane urement (mass/volume)Ordered By: Michael Allen on 02-08-2025 Albumin [Mass/Vol] 3.9 g/dL 3.4-4.8 [facility] Serum or plasma albumin/glob ulin mass ratioOrdered By: Michael Allen on 02-08-2025 Albumin/Globulin [Mass ratio] 1.4 {ratio} 0.9-2.4 [facility] Serum or plasma alkaline albin sphatase measurementOrdered By: Michael Braggkar on 02-08-2025 ALP [Catalytic activity/Vol] 91 U/L 40-129 [facility] Serum or plasma calcium diane urement (mass/volume)Ordered By: Remus Ungkar on 02-08-2025 Calcium [Mass/Vol] 9.2 mg/dL 7.6-11.0 [facility] Serum or plasma urea nitroge n measurement (mass/volume)Ordered By: Remus Ungkar on 02-08-2025 Urea nitrogen [Mass/Vol] 39 mg/dL High 4-19 [facility] Sodium levelOrdered By: Sheilau s Ungkar on 02-08-2025 Sodium [Moles/Vol] 137 mmol/L 133-145 [facility] Squamous epithelial cells de tection in urine sediment by light microscopyOrdered By: Michael Braggkar on 02-08-2025 Epithelial cells.squamous LM Ql (Urine sed) 0-5 SEEN /hpf 0-5 [facility] Total proteinOrdered By: Rem us Mahsakar on 02-08-2025 Protein [Mass/Vol] 6.7 g/dL 5.9-8.4 [facility] Urinalysis, Completeon 02-08 EPI,SQUAMOUS 0-5 SEEN Normal 0-5 [facility] Comment on above: Order Comment: 110.1 Performed By: #### L 500.2500, L100.0500 #### [facility] [address] [place], [address] BACTERIA 0 SEEN Normal None Seen [facility] Comment on above: Order Comment: 110.1 Performed By: #### L 500.2500, L100.0500 #### [facility] [address] [place], [address] Mucus Ql (Urine sed) 0 SEEN Normal [facility] Comment on above: Order Comment: 110.1 Performed By: #### L 500.2500, L100.0500 #### [facility] [address] [place], [address] RBC 0 SEEN Normal 0-5 [facility] Comment on above: Order Comment: 110.1 Performed By: #### L 500.2500, L100.0500 #### [facility] [address] [place], [place], [address] WBC 0 SEEN Normal 0-5 [facility] Comment on above: Order Comment: 110.1 Performed By: #### L 500.2500, L100.0500 #### [facility] [address] [place], [place], [id number] Urine clarityOrdered By: Sheila us Alejandro on 02-08-2025 Clarity (U) Clear Clear [facility] Urine color determinationOrd ered By: Michael Allen on 02-08-2025 Color (U) Yellow Yellow [facility] Urine glucose detectionOrder ed By: Michael Allen on 02-08-2025 Glucose Ql (U) Normal mg/dl Normal [facility] Urine leukocyte esterase det ection by dipstickOrdered By: Michael Allen on 02-08-2025 Leukocyte esterase Test strip Ql (U) Negative Negative [facility] Urine pHOrdered By: Michael Un gur on 02-08-2025 pH (U) 5.0 [pH] 5.0 - 8.0 [facility] Urine sediment bacteria coun t by microscopy (number/high power field)Ordered By: Michael Allen on 02-08-2025 Bacteria LM.HPF (Urine sed) [#/Area] 0 /[HPF] None Seen [facility] Urine specific gravity measu rementOrdered By: Remus Allen on 02-08-2025 Specific gravity (U) [Rel density] 1.025 1.002-1.030 [facility] Urine urobilinogen measureme ntOrdered By: Remus Alejandro on 02-08-2025 Urobilinogen Ql (U) 1 mg/dl High Normal [facility] White blood cell (WBC) count Ordered By: Remus Alejandro on 02-08-2025 WBC (Bld) [#/Vol] 5.4 10*3/uL 4.4-11.0 [facility] White blood cell countOrdere d By: Remus Ungur on 02-08-2025 White blood cell count 0 SEEN /hpf 0-5 [facility] Absolute lymphocyte countOrd ered By: Henry Florentino on 01-23-2025 Lymphocytes Auto (Unsp spec) [#/Vol] 1.32 10*3/uL 0.83-4.51 [facility] Absolute neutrophil countOrd ered By: Henry Florentino on 01-23-2025 Neutrophils (Bld) [#/Vol] 2.5 10*3/uL 2.0-7.7 [facility] Alcohol, Blood (Medical)-Ser umon 01-23-2025 SERUM ETOH < 10.1 Normal <=10.0 [facility] Comment on above: Result Comment: This test is for medical purposes only. The legal definition of intoxication varies according to local law. Performed By: #### L 500.2500, L100.0500 #### [facility] [address] [place], [place], [id number] Amphetamine detection with 1 000 ng/mL as cutoffOrdered By: Henry Florentino on 01-23-2025 Amphetamines Screen method >1000 ng/mL Ql (U) Negative < 200 ng/mL [facility] Anion gap in Serum or Plasma Ordered By: Henry Florentino on 01-23-2025 Anion gap [Moles/Vol] 13 mmol/L 5-15 [facility] Automated lymphocyte count a s percentage of total leukocytesOrdered By: Henry Florentino on 01-23-2025 Lymphocytes/100 WBC Auto (Unsp spec) 31.2 % 19- [facility] BUN/creatinine ratioOrdered By: Henry Florentino on 01-23-2025 Urea nitrogen/Creatinine [Mass ratio] 17.6 mg/mg - [facility] Basic Metabolic Profile (BMP )on 01-23-2025 BUN/CRE 17.6 RATIO Normal - [facility] Comment on above: Performed By: #### L 500.4100, L100.0500, L500.2500 #### [facility] [address] [place], [address] Calcium [Mass/Vol] 8.9 mg/dL Normal 7.6-11.0 [facility] Comment on above: Performed By: #### L 500.4100, L100.0500, L500.2500 #### [facility] [address] [place], [address] Chloride [Moles/Vol] 103 mmol/L Normal 98-108 [facility] Comment on above: Performed By: #### L 500.4100, L100.0500, L500.2500 #### [facility] [address] [place], [address] CO2 [Moles/Vol] 19.9 mmol/L Low 21.0-32.0 [facility] Comment on above: Performed By: #### L 500.4100, L100.0500, L500.2500 #### [facility] [address] [place], [address] Creatinine [Mass/Vol] 1.53 mg/dL High 0.70-1.20 [facility] Comment on above: Performed By: #### L 500.4100, L100.0500, L500.2500 #### [facility] [address] [place], [address] ECRCL 28.48 ml/min Low 50-250 [facility] Comment on above: Performed By: #### L 500.4100, L100.0500, L500.2500 #### [facility] [address] [place], [address] GAP 13 Normal 5-15 [facility] Comment on above: Performed By: #### L 500.4100, L100.0500, L500.2500 #### [facility] [address] [place], [address] GFR/1.73 sq M.predicted among non-blacks MDRD (S/P/Bld) [Vol rate/Area] 45 mL/min/{1.73_m2} Low >60 [facility] Comment on above: Result Comment: mL/m in/1.73m2 CKD-EPI Creatinine Equation (2020) Performed By: #### L 500.4100, L100.0500, L500.2500 #### [facility] [address] [place], [address] Glucose [Mass/Vol] 130 mg/dL High 70-99 [facility] Comment on above: Performed By: #### L 500.4100, L100.0500, L500.2500 #### [facility] [address] [place], [address] Potassium [Moles/Vol] 3.9 mmol/L Normal 3.3-5.1 [facility] Comment on above: Performed By: #### L 500.4100, L100.0500, L500.2500 #### [facility] [address] [place], [address] Sodium [Moles/Vol] 136 mmol/L Normal 133-145 [facility] Comment on above: Performed By: #### L 500.4100, L100.0500, L500.2500 #### [facility] [address] [place], [address] Urea nitrogen [Mass/Vol] 27 mg/dL High 4-19 [facility] Comment on above: Performed By: #### L 500.4100, L100.0500, L500.2500 #### [facility] [address] [place], [address] Basophil percentageOrdered B y: Henry Florentino on 01-23-2025 Basophils/100 WBC (Bld) 0.2 % 0-1 [facility] Bilirubin Test strip Ql (U)O rdered By: Henry Florentino on 07-13-2025 Bilirubin Ql (U) Negative Negative [facility] Brain/Head without Contrasto n 01-23-2025 Brain/Head without Contrast [facility] Imaging Services [address] [place], [place] [address] Brain/Head without Contrast MR#: [id number] Acct: [id number] Name: SOPHIA CORTES Rep #: [id number] : 1940 M 84 From: Brian Alvarez MD PCP: Care Physician,No Primary Status: REG ER Study: Brain/Head without Contrast Date of Exam: 01/11 10/05 Exam# [id number] Ordering Dr: Moises Florentino DO PROCEDURE: BRAIN/HEAD [...] Contrast IMPRESSION: NO ACUTE FINDINGS Reading Location: [place] [address] CC: Dr. Henry Florentino DO; No Primary Care Physician [employer] Production Supervisor: Signed Normal [facility] CBC W/Diff, Automatedon - Absolute Lymph 1.32 X10 3/uL Normal 0.83-4.51 [facility] Comment on above: Performed By: #### L 500.2500, L100.0500 #### [facility] [address] [place], [place], [id number] Absolute Neut 2.5 X10 3/uL Normal 2.0-7.7 [facility] Comment on above: Performed By: #### L 500.2500, L100.0500 #### [facility] [address] [place], [address] Basophils/100 WBC (Bld) 0.2 % Normal 0-1 [facility] Comment on above: Performed By: #### L 500.2500, L100.0500 #### [facility] [address] [place], [address] Eosinophils/100 WBC (Bld) 1.7 % Normal 0-5 [facility] Comment on above: Performed By: #### L 500.2500, L100.0500 #### [facility] [address] [place], [address] Erythrocyte distribution width (RBC) [Ratio] 12.2 % Normal 11.6-14.6 [facility] Comment on above: Performed By: #### L 500.2500, L100.0500 #### [facility] [address] [place], [address] Hematocrit (Bld) [Volume fraction] 34.1 % Low 40-54 [facility] Comment on above: Performed By: #### L 500.2500, L100.0500 #### [facility] [address] [place], [address] Hemoglobin (Bld) [Mass/Vol] 11.8 g/dL Low 13.0-16.5 [facility] Comment on above: Performed By: #### L 500.2500, L100.0500 #### [facility] [address] [place], [address] IG% 0.200 Normal 0.0-0.9 [facility] Comment on above: Result Comment: IG% - Immature Granulocytes (promyelocytes, myelocytes and metamyelocytes) > 1% indicates that a LEFT SHIFT is Present. Performed By: #### L 500.2500, L100.0500 #### [facility] [address] [place], [address] Lymphocytes/100 WBC (Bld) 31.2 % Normal 19-41 [facility] Comment on above: Performed By: #### L 500.2500, L100.0500 #### [facility] [address] [place], [address] MCH (RBC) [Entitic mass] 31.7 pg Normal 27.0-32.0 [facility] Comment on above: Performed By: #### L 500.2500, L100.0500 #### [facility] [address] [place], [address] MCHC (RBC) [Mass/Vol] 34.6 g/dL Normal 32-36 [facility] Comment on above: Performed By: #### L 500.2500, L100.0500 #### [facility] [address] [place], [address] MCV (RBC) [Entitic vol] 91.7 fL Normal 80-94 [facility] Comment on above: Performed By: #### L 500.2500, L100.0500 #### [facility] [address] [place], [address] Monocytes/100 WBC (Bld) 8.7 % Normal 0-10 [facility] Comment on above: Performed By: #### L 500.2500, L100.0500 #### [facility] [address] [place], [address] Neutrophils/100 WBC (Bld) 58.0 % Normal 47-70 [facility] Comment on above: Performed By: #### L 500.2500, L100.0500 #### [facility] [address] [place], [address] Nucleated RBC (Bld) [#/Vol] 0 10*3/uL Normal 0-5 [facility] Comment on above: Performed By: #### L 500.2500, L100.0500 #### [facility] [address] [place], [address] Platelet mean volume (Bld) [Entitic vol] 12.1 fL High 6.2-12.0 [facility] Comment on above: Performed By: #### L 500.2500, L100.0500 #### [facility] [address] [place], [address] Platelets (Bld) [#/Vol] 136 10*3/uL Low 150-450 [facility] Comment on above: Performed By: #### L 500.2500, L100.0500 #### [facility] [address] [place], [address] RBC (Bld) [#/Vol] 3.72 10*6/uL Low 4.6-6.2 [facility] Comment on above: Performed By: #### L 500.2500, L100.0500 #### [facility] [address] [place], [address] RDW SD 41.1 fl Normal 35.1-43.9 [facility] Comment on above: Performed By: #### L 500.2500, L100.0500 #### [facility] [address] [place], [address] WBC (Bld) [#/Vol] 4.2 10*3/uL Low 4.4-11.0 [facility] Comment on above: Performed By: #### L 500.2500, L100.0500 #### [facility] [address] [place], [address] Carbon dioxide, total [Moles /volume] in Central venous bloodOrdered By: Henry Florentino on 01-23-2025 CO2 [Moles/Vol] 19.9 mmol/L Low 21.0-32.0 [facility] Chloride assayOrdered By: Dinh Florentino on 01-23-2025 Chloride [Moles/Vol] 103 mmol/L 98-108 [facility] Emergency Department Summary on 01-23-2025 Emergency Department Summary [facility] Medical Records Department [address] [place] [address] Emergency Department Summary 01/23/25 MR#: [id number] Acct: [id number] Name: SOPHIA CORTES Rep #: [id number] : 1940 84 From: Henry [place] DO [...] tired of this and want to end it. 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 He states that I am just sick of it all. He told my nurse prior to me [...] 11.8, and (more content not included)... Normal [facility] Eosinophil percentageOrdered By: Henry Florentino on 01-23-2025 Eosinophils/100 WBC (Bld) 1.7 % 0-5 [facility] Erythrocyte distribution wid th ratioOrdered By: [facility] on 01-[facility]-2025 Erythrocyte distribution width (RBC) [Ratio] 12.2 % 11.6-14.6 [facility] Erythrocyte distribution wid th standard deviationOrdered By: Henry Figueroa on 01-23-2025 Erythrocyte distribution width (RBC) [Ratio] 41.1 fl 35.1-43.9 [facility] Glomerular filtration rate ( GFR) estimation/1.73 sq m using serum, plasma, or whole bOrdered By: Henry Florentino on 01-23-2025 GFR/1.73 sq M.predicted among non-blacks MDRD (S/P/Bld) [Vol rate/Area] 45 mL/min/{1.73_m2} Low >60 [facility] Comment on above: mL/min/1.73m2 CKD-EP I Creatinine Equation (2020) Hematocrit Auto (Bld) [Volum e fraction]Ordered By: Henry Florentino on 01-23-2025 Hematocrit (Bld) [Volume fraction] 34.1 % Low 40-54 [facility] Hemoglobin measurementOrdere d By: Henry Florentino on 01-23-2025 Hemoglobin (Bld) [Mass/Vol] 11.8 g/dL Low 13.0-16.5 [facility] Immature granulocytes/100 WB C Auto (Bld)Ordered By: Henry Florentino on 01-23-2025 Immature granulocytes/100 WBC (Bld) 0.200 % 0.0-0.9 [facility] Comment on above: IG% - Immature Granu locytes (promyelocytes, myelocytes and metamyelocytes) > 1% indicates that a LEFT SHIFT is Present. Ketones Test strip Ql (U)Ord ered By: Henry Florentino on 01-23-2025 Ketones Ql (U) Negative Negative [facility] MCV (mean corpuscular volume ) determinationOrdered By: Henry Florentino on 01-23-2025 MCV (RBC) [Entitic vol] 91.7 fL 80-94 [facility] Mean corpuscular hemoglobin (MCH) determinationOrdered By: Henry Florentino on 01-23-2025 MCH (RBC) [Entitic mass] 31.7 pg 27.0-32.0 [facility] Mean corpuscular hemoglobin concentration (MCHC) determinationOrdered By: Henry Florentino on 01-23-2025 MCHC (RBC) [Mass/Vol] 34.6 g/dL 32-36 [facility] Mean platelet volume determi nationOrdered By: Henry Florentino on 01-23-2025 Platelet mean volume (Bld) [Entitic vol] 12.1 fL High 6.2-12.0 [facility] Microscopic analysis of urin e for red blood cells (RBC)Ordered By: Henry Florentino on 01-23-2025 Microscopic analysis of urine for red blood cells (RBC) 0-5 SEEN /hpf 0-5 [facility] Monocyte percentageOrdered B y: Henry Florentino on 01-23-2025 Monocytes/100 WBC (Bld) 8.7 % 0-10 [facility] Mucus LM Ql (Urine sed)Order ed By: Henry Florentino on 01-23-2025 Mucus Ql (Urine sed) 0 SEEN /hpf [facility] Neutrophil percentageOrdered By: Henry Florentino on 01-23-2025 Neutrophils/100 WBC (Bld) 58.0 % 47-70 [facility] Nitrite Test strip Ql (U)Ord ered By: Henry Florentino on 01-23-2025 Nitrite Ql (U) Negative Negative [facility] No Panel InformationOrdered By: Henry Florentino on 01-23-2025 Urine Buprenorphine Qualitative Negative < 200 ng/mL [facility] Urine Oxycodone Screen Negative < 100 ng/mL [facility] Nucleated red blood cell per centageOrdered By: Henry Florentino on 01-23-2025 Nucleated RBC/100 WBC (Bld) [Ratio] 0 % 0-5 [facility] Platelet countOrdered By: Dinh Florentino on 01-23-2025 Platelets (Bld) [#/Vol] 136 10*3/uL Low 150-450 [facility] Potassium measurement (mass/ volume)Ordered By: Henry Florentino on 01-23-2025 Potassium (Unsp spec) [Mass/Vol] 3.9 mmol/L 3.3-5.1 [facility] Protein Test strip Ql (U)Ord ered By: Henry Florentino on 01-23-2025 Protein Ql (U) 30 mg/dl High Negative [facility] Quantitative urine opiates m easurementOrdered By: Henry Florentino on 01-23-2025 Opiates Ql (U) Negative < 300 ng/mL [facility] RBC Auto (Bld) [#/Vol]Ordere d By: Henry Florentino on 01-23-2025 RBC (Bld) [#/Vol] 3.72 10*6/uL Low 4.6-6.2 [facility] Screening urine fentanyl kelley surementOrdered By: Henry Florentino on 01-23-2025 fentaNYL Screen Ql (U) Negative [facility] Serum creatinine measurement (mass/volume)Ordered By: Henry Florentino on 01-23-2025 Creatinine [Mass/Vol] 1.53 mg/dL High 0.70-1.20 [facility] Serum glucose measurement (m ass/volume)Ordered By: Henry Florentino on 01-23-2025 Glucose [Mass/Vol] 130 mg/dL High 70-99 [facility] Serum or plasma calcium diane urement (mass/volume)Ordered By: Henry Figueroa on 01-23-2025 Calcium [Mass/Vol] 8.9 mg/dL 7.6-11.0 [facility] Serum or plasma ethanol diane urement (mass/volume)Ordered By: Henry Figueroa on 01-23-2025 Ethanol [Mass/Vol] mg/dL <10.1 [facility] Comment on above: This test is for med ical purposes only. The legal definition of intoxication varies according to local law. Serum or plasma urea nitroge n measurement (mass/volume)Ordered By: Henry Florentino on 01-23-2025 Urea nitrogen [Mass/Vol] 27 mg/dL High 4-19 [facility] Sodium levelOrdered By: Moises Florentino on 01-23-2025 Sodium [Moles/Vol] 136 mmol/L 133-145 [facility] Squamous epithelial cells de tection in urine sediment by light microscopyOrdered By: Henry Florentino on 01-23-2025 Epithelial cells.squamous LM Ql (Urine sed) 0 SEEN /hpf 0-5 [facility] Urinalysis, Completeon 01-23 RBC 0-5 SEEN Normal 0-5 [facility] Comment on above: Order Comment: 110.1 Performed By: #### L 500.2500, L100.0500 #### [facility] [address] [place], [place], [id number] BACTERIA 0 SEEN Normal None Seen [facility] Comment on above: Order Comment: 110.1 Performed By: #### L 500.2500, L100.0500 #### [facility] [address] [place], [address] EPI,SQUAMOUS 0 SEEN Normal 0-5 [facility] Comment on above: Order Comment: 110.1 Performed By: #### L 500.2500, L100.0500 #### [facility] [address] [place], [address] Mucus Ql (Urine sed) 0 SEEN Normal [facility] Comment on above: Order Comment: 110.1 Performed By: #### L 500.2500, L100.0500 #### [facility] [address] [place], [address] WBC 0 SEEN Normal 0-5 [facility] Comment on above: Order Comment: 110.1 Performed By: #### L 500.2500, L100.0500 #### [facility] [address] [place], [address] Urine Drug Screen ([facility]IST[facility])on 01-23-2025 AMPHETAMINES Negative Normal <1000 ng/mL [facility] Comment on above: Performed By: #### L 500.4100, L100.0500, L500.2500 #### [facility] [address] [place], [address] BARBITIURATES Negative Normal < 200 ng/mL [facility] Comment on above: Performed By: #### L 500.4100, L100.0500, L500.2500 #### [facility] [address] [place], [address] BENZODIAZIPINE Negative Normal < 200 ng/mL [facility] Comment on above: Performed By: #### L 500.4100, L100.0500, L500.2500 #### [facility] [address] [place], [address] BUP Ur Drug Scr Negative Normal < 200 ng/mL [facility] Comment on above: Performed By: #### L 500.4100, L100.0500, L500.2500 #### [facility] [address] [place], [address] COCAINE Negative Normal < 300 ng/mL [facility] Comment on above: Performed By: #### L 500.4100, L100.0500, L500.2500 #### [facility] [address] [place], [address] Fentanyl Negative Normal [facility] Comment on above: Performed By: #### L 500.4100, L100.0500, L500.2500 #### [facility] [address] [place], [place], [facility] METHADONE Negative Normal < 300 ng/mL [facility] Comment on above: Performed By: #### L 500.4100, L100.0500, L500.2500 #### [facility] [address] [place], [place], [facility] OPIATES Negative Normal < 300 ng/mL [facility] Comment on above: Performed By: #### L 500.4100, L100.0500, L500.2500 #### [facility] [address] [place], [place], [facility] OXYCODONE Negative Normal < 100 ng/mL [facility] Comment on above: Performed By: #### L 500.4100, L100.0500, L500.2500 #### [facility] [address] [place], [place], [facility] PCP Negative Normal < 25 ng/mL [facility] Comment on above: Performed By: #### L 500.4100, L100.0500, L500.2500 #### [facility] [address] [place], [place], [facility] THC Negative Normal < 50 ng/mL [facility] Comment on above: Performed By: #### L 500.4100, L100.0500, L500.2500 #### [facility] [place], [address] Urine benzodiazepine levelOr dered By: Henry Florentino on 01-23-2025 Benzodiazepines Ql (U) Negative < 200 ng/mL [facility] Urine clarityOrdered By: Ben Florentino on 01-23-2025 Clarity (U) Clear Clear [facility] Urine cocaine levelOrdered B y: Henry Florentino on 01-23-2025 Cocaine Ql (U) Negative < 300 ng/mL [facility] Urine color determinationOrd ered By: Henry Florentino on 01-23-2025 Color (U) Yellow Yellow [facility] Urine tjwrr-1-kbrbsbcslcriad abinol (THC) measurementOrdered By: Henry Figueroa on 01-23-2025 Cannabinoids Screen Ql (U) Negative < 50 ng/mL [facility] Urine glucose detectionOrder ed By: Henry Florentino on 01-23-2025 Glucose Ql (U) Normal mg/dl Normal [facility] Urine leukocyte esterase det ection by dipstickOrdered By: Henry Florentino on 01-23-2025 Leukocyte esterase Test strip Ql (U) Negative Negative [facility] Urine pHOrdered By: Henry Hale on 01-23-2025 pH (U) 5.0 [pH] 5.0 - 8.0 [facility] Urine phencyclidine (PCP) de tectionOrdered By: Henry Florentino on 01-23-2025 Phencyclidine Ql (U) Negative < 25 ng/mL [facility] Urine sediment bacteria coun t by microscopy (number/high power field)Ordered By: Henry Florentino on 01-23-2025 Bacteria LM.HPF (Urine sed) [#/Area] 0 /[HPF] None Seen [facility] Urine specific gravity measu rementOrdered By: Henry Florentino on 01-23-2025 Specific gravity (U) [Rel density] 1.025 1.002-1.030 [facility] Urine urobilinogen measureme ntOrdered By: Henry KinAlexia on 01-23-2025 Urobilinogen Ql (U) Normal mg/dl Normal [facility] White blood cell (WBC) count Ordered By: [facility] on 01-23-2025 WBC (Bld) [#/Vol] 4.2 10*3/uL Low 4.4-11.0 [facility] White blood cell countOrdere d By: Henry Florentino on 01-23-2025 White blood cell count 0 SEEN /hpf 0-5 [facility] Cardiology Visit Reporton Cardiology Visit Report [facility] 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 Normal [facility] Pacemaker Checkon 12-01-2024 Pacemaker Check [facility] [address] [place] [address]. 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: Chronic Comment: [employer] ICD Dual Chamber (3) NSVT (nonsustained ventricular tachycardia): Status: Chronic 12/01/241713 Date Toya Gonzalez Signature: Date (if applicable) CC: Normal [facility] Absolute lymphocyte countOrd ered By: Marcelino Kyleigh on 11-10-2023 Lymphocytes Auto (Unsp spec) [#/Vol] 1.08 10*3/uL 0.83-4.51 [facility] Automated lymphocyte count a s percentage of total leukocytesOrdered By: Marcelino Kyleigh on 11-10-2023 Lymphocytes/100 WBC Auto (Unsp spec) 19.5 % 19-41 [facility] Basophil percentageOrdered B y: Marcelino Kyleigh on 11-10-2023 Basophils/100 WBC (Bld) 0.4 % 0-1 [facility] Bilirubin [Mass/Vol] 1.20 mg/dL 0.20-1.00 [facility] Comment on above: For patients on eltr ombopag therapy, use of Dimension [place] TBIL is not recommended. Chloride [Moles/Vol] 107 mmol/L 98-107 [facility] Eosinophils/100 WBC (Bld) 0.9 % 0-5 [facility] Glucose [Mass/Vol] 97 mg/dL 74-106 [facility] Hemoglobin (Bld) [Mass/Vol] 14.0 g/dL 13.0-16.5 [facility] Monocytes/100 WBC (Bld) 7.9 % 0-10 [facility] Neutrophils (Bld) [#/Vol] 4.0 10*3/uL 2.0-7.7 [facility] Neutrophils/100 WBC (Bld) 71.1 % 47-70 [facility] Potassium [Moles/Vol] 4.3 mmol/L 3.5-5.1 [facility] Protein [Mass/Vol] 7.6 g/dL 6.4-8.2 [facility] Sodium [Moles/Vol] 137 mmol/L 136-145 [facility] WBC (Bld) [#/Vol] 5.6 10*3/uL 4.4-11.0 [facility] Blood manual differential co mment interpretation (narrative result)Ordered By: Marcelino Arizmendi on 11-10-2023 Manual differential comment Eduardo (Bld) [Interp] SCANNED [facility] Comment on above: Please note: For [...] 11-10-2023 Platelets LM Ql (Bld) ADEQUATE ADEQ [facility] Determination of erythrocyte mean corpuscular volume (MCV)Ordered By: Marcelino Arizmendi on 11-10-2023 MCV (RBC) [Entitic vol] 93.6 fL 80-94 [facility] Erythrocyte distribution wid th ratioOrdered By: Marcelino Arizmendi on 11-10-2023 Erythrocyte distribution width (RBC) [Ratio] 13.4 % 11.6-14.6 [facility] Erythrocyte distribution wid th standard deviationOrdered By: Marcelino Arizmendi on 11-10-2023 Erythrocyte distribution width (RBC) [Entitic vol] 45.7 fL 35.1-43.9 [facility] Hematocrit Auto (Bld) [Volum e fraction]Ordered By: Marcelino Arizmendi on 11-10-2023 Hematocrit (Bld) [Volume fraction] 42.7 % 40-54 [facility] Immature granulocytes/100 WB C Auto (Bld)Ordered By: Marcelino Arizmendi on 11-10-2023 Immature granulocytes/100 WBC (Bld) 0.200 % 0.0-0.9 [facility] Comment on above: IG% - Immature Granu locytes (promyelocytes, myelocytes and metamyelocytes) > 1% indicates that a LEFT SHIFT is Present. Laboratory - Chemistry and C hemistry - challengeOrdered By: Marcelino Arizmendi on 11-10-2023 Albumin/Globulin [Mass ratio] 1.1 {ratio} 0.9-2.4 [facility] ALP [Catalytic activity/Vol] 71 U/L 45-117 [facility] ALT [Catalytic activity/Vol] 19 U/L 16-61 [facility] CO2 [Moles/Vol] 21.0 mmol/L 21.0-32.0 [facility] Globulin (S) [Mass/Vol] 3.7 g/dL 2.2-4.2 [facility] Magnesium [Mass/Vol] 2.3 mg/dL 1.6-2.6 [facility] Urea nitrogen/Creatinine [Mass ratio] 15.7 mg/mg 10-20 [facility] - Hematology and Cell countsOrdered By: Marcelino Arizmendi on 11-10-2023 MCH (RBC) [Entitic mass] 30.7 pg 27.0-32.0 [facility] MCHC (RBC) [Mass/Vol] 32.8 g/dL 32-36 [facility] Nucleated RBC/100 WBC (Bld) [Ratio] 0 % 0-5 [facility] Platelet mean volume (Bld) [Entitic vol] 11.2 fL 6.2-12.0 [facility] No Panel InformationOrdered By: Marcelino Arizmendi on 11-10-2023 Estimated GFR (MDRD) Amer 70 mL/min >60 [facility] Comment on above: GFR Calc Estimated GFR (MDRD) Non-Af Amer 58 mL/min >60 [facility] Comment on above: Non- GFR Calc Platelet Count TNP [facility] Comment on above: Test not performedPl [...] 11-10-2023 RBC (Bld) [#/Vol] 4.56 10*6/uL 4.6-6.2 [facility] Serum or plasma calcium diane urement (mass/volume)Ordered By: Marcelino Arizmendi on 11-10-2023 Calcium [Mass/Vol] 9.1 mg/dL 8.5-10.1 [facility] Serum or plasma creatinine m easurement (mass/volume)Ordered By: Marcelino Arizmendi on 11-10-2023 Creatinine [Mass/Vol] 1.27 mg/dL 0.70-1.30 [facility] Comment on above: The validity of the calculated GFR & GFRAA in patients over 70 years has not been determined. Clinical correlation is essential. Serum or plasma thyroid stim ulating hormone (TSH) measurement (units/volume)Ordered By: Marcelino Arizmendi on 11-10-2023 TSH Qn 1.52 uIU/mL 0.358-3.74 [facility] Serum or plasma urea nitroge n measurement (mass/volume)Ordered By: Marcelino Arizmendi on 11-10-2023 Urea nitrogen [Mass/Vol] 20 mg/dL 7-18 [facility] Thin prep Papanicolaou smear with manual screeningOrdered By: Marcelino Arizmendi on 11-10-2023 Thin prep Papanicolaou smear with manual screening 3.9 g/dL 3.2-5.0 [facility] Thin prep Papanicolaou smear with manual screening 23 U/L 15-37 [facility] Thin prep Papanicolaou smear with manual screening 9 5-15 [facility] Thin prep Papanicolaou smear with manual screening 1.24 ng/dL 0.76-1.46 [facility] Basophil percentageOrdered B y: Marcelino Arizmendi on 10-22-2023 Bilirubin [Mass/Vol] 0.90 mg/dL 0.20-1.00 [facility] Comment on above: For patients on eltr ombopag therapy, use of Dimension [place] TBIL is not recommended. Cholesterol [Mass/Vol] 171 mg/dL <200 [facility] Comment on above: <200 mg/dL Desirable 200-240 mg/dL Borderline >240 mg/dL High Risk Protein [Mass/Vol] 6.8 g/dL 6.4-8.2 [facility] Triglyceride [Mass/Vol] 96 mg/dL <199 [facility] Comment on above: The drugs N-Acetylcy steine and Metamizole may falsely depress this assay.Serum Triglycerides Reference Interval Normal <150 mg/dL Borderline high 150 - 199 mg/dL High 200 - 499 mg/dL Very High > or = 500 mg/dL Direct bilirubinOrdered By: Marcelino Arizmendi on 10-22-2023 Bilirubin.direct [Mass/Vol] 0.19 mg/dL 0.00-0.30 [facility] - Chemistry and C hemistry - challengeOrdered By: Marcelino Arizmendi on 10-22-2023 ALP [Catalytic activity/Vol] 65 U/L 45-117 [facility] ALT [Catalytic activity/Vol] 16 U/L 16-61 [facility] Cholesterol in HDL [Mass/Vol] 47 mg/dL >40 [facility] Comment on above: The drugs N-Acetylcy steine and Metamizole may falsely depress this assay. Reference Range HDL <40 mg/dL Low HDL Cholesterol HDL >or= 60 mg/dL High HDL Cholesterol Cholesterol in LDL [Mass/Vol] 105 mg/dL 0-130 [facility] Globulin (S) [Mass/Vol] 3.3 g/dL 2.2-4.2 [facility] No Panel InformationOrdered By: Marcelino Arizmendi on 10-22-2023 VLDL Cholesterol 19 mg/dL 5-40 [facility] Thin prep Papanicolaou smear with manual screeningOrdered By: Marcelino Arizmendi on 10-22-2023 Thin prep Papanicolaou smear with manual screening 3.5 g/dL 3.2-5.0 [facility] Thin prep Papanicolaou smear with manual screening 18 U/L 15-37 [facility] Report: Lipid Profileon 06-19-2017 Cholesterol 79 mg/dL Invalid Interpretation Code 200 [facility] [employer] Work Phone: [phone] HDL Cholesterol 54 mg/dL Invalid Interpretation Code [facility] [employer] Work Phone: [phone] LDL Cholesterol 17 mg/dL Invalid Interpretation Code 0-130 [facility] Work Phone: [phone] Triglyceride 40 mg/dL Invalid Interpretation Code [facility] [employer] Work Phone: [phone] very low density lipoproteins 8 mg/dL Invalid Interpretation Code 5-40 [facility] Work Phone: [phone] Lab Report: Liver Profileon 06-19-2017 Alanine aminotransferase (ALT) 21 U/L Invalid Interpretation Code 12-78 [facility] [employer] Work Phone: [phone] Albumin 3.6 g/dL Invalid Interpretation Code 3.4-5.0 [facility] [employer] Work Phone: [phone] Alkaline phosphatase (ALP) 83 U/L Invalid Interpretation Code 45-117 [facility] [employer] Work Phone: Aspartate aminotransferase (AST) 25 U/L Invalid Interpretation Code 15-37 [facility] Phone: [phone] Bilirubin (direct) 0.30 mg/dL Invalid Interpretation Code 0.00-0.30 [employer] Work Phone: [phone] Bilirubin (total) 1.00 mg/dL Invalid Interpretation Code 0.20-1.00 [facility] Phone: [phone] Globulin 2.8 g/dL Invalid Interpretation Code 2.2-4.2 [employer] Work Phone: [phone] Protein 6.4 g/dL Invalid Interpretation Code 6.4-8.2 [employer] Phone: [phone] Office Visiton 12-19-2016 Documentation of current medications (procedure) Done Invalid Interpretation Code [facility] Phone: [phone] Fall risk assessment No Invalid Interpretation Code [facility] Phone: [phone] Protein mass conc Done [employer] Work Phone: [phone] Lab Report: Lipid Profileon 12-06-2016 Cholesterol 87 mg/dL Invalid Interpretation Code 200 [employer] Work Phone: [phone] HDL Cholesterol 49 mg/dL Invalid Interpretation Code [employer] Phone: [phone] LDL Cholesterol 23 mg/dL Invalid Interpretation Code 0-130 [employer] Phone: [phone] Triglyceride 73 mg/dL Invalid Interpretation Code [employer] Phone: [phone] very low density lipoproteins 15 mg/dL Invalid Interpretation Code 5-40 [employer] Work Phone: [phone] Lab Report: Liver Profileon 12-06-2016 Alanine aminotransferase (ALT) 20 U/L Invalid Interpretation Code 12-78 [employer] Work Phone: [phone] Albumin 3.6 g/dL Invalid Interpretation Code 3.4-5.0 [employer] Work Phone: [phone] Alkaline phosphatase (ALP) 77 U/L Invalid Interpretation Code 45-117 [employer] Work Phone: [phone] ALP (Bld) [Catalytic activity/Vol] 77 U/L 45-117 [employer] Work Phone: [phone] Aspartate aminotransferase (AST) 20 U/L Invalid Interpretation Code 15-37 [facility] Work Phone: [phone] Bilirubin (direct) 0.24 mg/dL Invalid Interpretation Code 0.00-0.30 [facility] Work Phone: [phone] Bilirubin (total) 0.90 mg/dL Invalid Interpretation Code 0.20-1.00 [facility] Work Phone: [phone] Globulin 2.9 g/dL Invalid Interpretation Code 2.3-3.5 [employer] Work Phone: [phone] Globulin (S) [Mass/Vol] 2.9 g/dL 2.3-3.5 [facility] [employer] Work Phone: [phone] Protein 6.5 g/dL Invalid Interpretation Code 6.4-8.2 [employer] Phone: [phone] Office Visiton 12-19-2015 Documentation of current medications (procedure) Done Invalid Interpretation Code [facility] Phone: [phone] Clinical Lists 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 [employer] Work Phone: [phone] BUN/Creatinine Ratio 17.5 RATIO Invalid Interpretation Code 10-20 [facility] [employer] Work Phone: [phone] Calcium 8.6 mg/dL Invalid Interpretation Code 8.5-10.1 [employer] Work Phone: [phone] Chloride 106 mmol/L Invalid Interpretation Code 98-107 [employer] Work Phone: [phone] CO2 27.0 mmol/L Invalid Interpretation Code 21.0-32.0 [employer] Phone: [phone] CO2 (BldV) [Partial pressure] 27.0 mmol/L 21.0-32.0 [facility] Phone: [phone] Creatinine 0.91 mg/dL Invalid Interpretation Code 0.70-1.30 [employer] Work Phone: [phone] eGFR (non-black) 87 mL/min/{1.73_m2} Invalid Interpretation Code >60 [employer] Work Phone: [phone] eGFR (non-black) 105 mL/min/{1.73_m2} Invalid Interpretation Code >60 [employer] Work Phone: [phone] EST GFR - AA 105 mL/min >60 [employer] Work Phone: [phone] Glucose 87 mg/dL Invalid Interpretation Code 70-110 [employer] Work Phone: [phone] Glucose [Mass/Vol] 87 mg/dL Invalid Interpretation Code 70-110 [employer] Work Phone: [phone] Potassium 4.3 mmol/L Invalid Interpretation Code 3.5-5.1 [employer] Work Phone: [phone] Sodium 141 mmol/L Invalid Interpretation Code 136-145 [employer] Work Phone: [phone] Urea nitrogen 16 mg/dL Invalid Interpretation Code 7-18 [employer] Work Phone: [phone] Lab Report: CBC W/Diff, Auto matedon 06-20-2015 Absolute Neut 3.2 X10 3/UL Invalid Interpretation Code 2.0-7.7 [facility] Phone: [phone] Basophils/100 leukocytes 0.2 % Invalid Interpretation Code 0-1 [employer] Work Phone: [phone] Basophils/100 WBC (Bld) 0.2 % 0-1 [facility] [employer] Work Phone: [phone] Eosinophils/100 leukocytes 1.1 % Invalid Interpretation Code 0-5 [facility] Phone: [phone] Eosinophils/100 WBC (Bld) 1.1 % 0-5 [employer] Work Phone: [phone] Erythrocyte distribution width (RBC) [Ratio] 43.2 fL 35.1-43.9 [employer] Work Phone: [phone] Erythrocyte distribution width (RBC) [Ratio] 12.1 % 11.6-14.6 [facility] Work [phone] Erythrocytes (RBC) 4.22 10*6/uL Low 4.6-6.[address] [facility] [address] [facility] Work Phone: [phone] Hematocrit (Bld) [Volume fraction] 41.8 % 40-54 [facility] Work Phone: [phone] Hematocrit (HCT) 41.8 % Invalid Interpretation Code 40-54 [facility] Work Phone: [phone] Hemoglobin (HGB) 14.1 g/dL Invalid Interpretation Code 13.0-16.5 [facility] Work Phone: [phone] Immature granulocytes (Bld) [#/Vol] 0.200 % 0.0-0.9 [facility] Work Phone: [phone] immature granulocytes, percentage of total cells, blood 0.200 % Invalid Interpretation Code 0.0-0.9 [facility] Work Phone: [phone] Immature granulocytes/100 WBC (Bld) 0.200 % Invalid Interpretation Code 0.0-0.9 [facility] Work Phone: [phone] Lymphocytes 0.80 X10 3/UL Low 0.83-4.51 [facility] Work Phone: [phone] Lymphocytes (Bld) [#/Vol] 0.80 X10 3/UL Low 0.83-4.51 [facility] Work Phone: [phone] Lymphocytes/100 leukocytes 18.2 % Low 19-41 [facility] Work Phone: [phone] Lymphocytes/100 WBC (Bld) 18.2 % Low 19-41 [facility] Work Phone: [phone]() MCH 33.4 pg High 27.0-32.0 [facility] Work Phone: [phone] MCH (RBC) [Entitic mass] 33.4 pg High 27.0-32.0 [facility] Work Phone: [phone] MCHC 33.7 G/GL Invalid Interpretation Code 32-36 [facility] Work Phone: [phone] MCHC (RBC) [Mass/Vol] 33.7 G/GL 32-36 [facility] Work Phone: [phone] MCV 99.1 fL High 80-94 [facility] Work Phone: [phone] MCV (RBC) [Entitic vol] 99.1 fL High 80-94 [facility] Work Phone: [phone] Monocytes/100 leukocytes 8.4 % Invalid Interpretation Code 0-10 [facility] Work Phone: [phone] Monocytes/100 WBC (Bld) 8.4 % 0-10 [facility] Work Phone: [phone] neutrophil count, blood 3.2 X10 3/UL Invalid Interpretation Code 2.0-7.7 [facility] Work Phone: [phone] Neutrophils (Bld) [#/Vol] 3.2 X10 3/UL 2.0-7.7 [facility] Work Phone: [phone] Neutrophils/100 leukocytes 71.9 % High 47-70 [facility] Work Phone: [phone] Neutrophils/100 WBC (Bld) 71.9 % High 47-70 [facility] Work Phone: [phone] Platelet mean volume (Bld) [Entitic vol] 12.4 fL High 6.2-12.0 [facility] Work Phone: [phone] Platelets 112 10*3/mm3 Low 150-450 [facility] Work Phone: [phone] Platelets (Bld) [#/Vol] 112 10*3/mm3 Low 150-450 [facility] Work Phone: [phone] PMV by Macarena 12.4 fL High 6.2-12.0 [facility] Work Phone: [phone] RBC (Bld) [#/Vol] 4.22 10*6/uL Low 4.6-6.2 [facility] Work Phone: [phone] RDW SD 43.2 fL Invalid Interpretation Code 35.1-43.9 [facility] Work Phone: [phone] RDW-CA 12.1 % Invalid Interpretation Code 11.6-14.6 [facility] [employer] Work Phone: [phone] red blood cell distribution width, size density 43.2 fL Invalid Interpretation Code 35.1-43.9 [facility] [employer] [facility] Work Phone: [phone] WBC (Bld) [#/Vol] 4.4 10*3/uL 4.4-11.0 [facility] [employer] Work Phone: [phone] WBC (Leukocytes) 4.4 10*3/uL Invalid Interpretation Code 4.4-11.0 [facility] Phone: [phone] Office Visit: [facility] 06-20-20 15 Tobacco smoking status NYIS Tobacco smoking status NYIS Invalid Interpretation Code [facility] [employer] Phone: [phone] Tobacco smoking status NYIS Never smoker [facility] [employer] Phone: [phone] Tobacco use [facility] Never smoker Invalid Interpretation Code [facility] Phone: [phone] Replaced Document: Carrie Ronquilloon 06-20-2015 EKG QRS axis -27 deg Invalid Interpretation Code [facility] Phone: [phone] electrocardiogram interpretation Marked sinus Bradycardia -Anterior infarct -age undetermined. - Negative T-waves -Possible Anterolateral ischemia. ABNORMAL Invalid Interpretation Code [facility] Phone: [phone] GE use only - for [employer] import when terms are not otherwise specified 412 ms Invalid Interpretation Code [facility] Phone: [phone] Interpretation Marked sinus Bradycardia -Anterior infarct -age undetermined. - Negative T-waves -Possible Anterolateral ischemia. ABNORMAL Invalid Interpretation Code [facility] Phone: [phone] P Mitchell 67 deg Invalid Interpretation Code [employer] Work Phone: [phone] P wave axis, electrocardiogram 67 deg Invalid Interpretation Code [facility] Phone: [phone] MT Interval 174 ms Invalid Interpretation Code [facility] [employer] Phone: [phone] MT interval, electrocardiogram 174 ms Invalid Interpretation Code [facility] Phone: [phone] Pulse (Heart Rate) 47 /min Invalid Interpretation Code [employer] Work Phone: [phone] QRS axis, electrocardiogram -27 deg Invalid Interpretation Code [employer] Work Phone: [phone] QRS Duration 96 ms Invalid Interpretation Code [employer] Work Phone: [phone] QRS duration, electrocardiogram 96 ms Invalid Interpretation Code [employer] Work Phone: [phone] QT Interval new path ms Invalid Interpretation Code [employer] Work Phone: [phone] QT interval, electrocardiogram new path ms Invalid Interpretation Code [employer] Work Phone: [phone] QTc [place] 412 ms Invalid Interpretation Code [employer] Work Phone: [phone] T Mitchell 90 deg Invalid Interpretation Code [employer] Work Phone: [phone] T wave axis, electrocardiogram 90 deg Invalid Interpretation Code [employer] Work Phone: [phone] Office Visit: [facility] 06-13-20 14 cardiac risk group C Invalid Interpretation Code [employer] Work Phone: [phone] General cardiovascular disease 10Y risk [#] [place].D'Agostino N/A Invalid Interpretation Code [employer] Work Phone: [phone] LDL target level 100 mg/dL Invalid Interpretation Code [employer] Work Phone: [phone] Lab Report: PTon 07-20-2012 INR Coag (PPP) [Relative time] 1.2 {INR} Normal [employer] Work Phone: [phone] INR in blood by coagulation 1.2 {INR} Normal [employer] Work Phone: [phone] prothrombin time, actual/normal, ratio 14.0 SECONDS Normal 11.9-14.4 [employer] Work Phone: [phone] PTP 14.0 SECONDS Normal 11.9-14.4 [employer] Work Phone: [phone] Lab Report: UAon 07-20-2012 specific gravity, urine 1.020 Normal 1.002-1.030 [employer] Work Phone: [phone] Replaced Document: [facility] E CG Observationson 07-15-2012 Pulse (Heart Rate) 471 ms Invalid Interpretation Code [employer] Work Phone: [phone] Vital Signs Date Time Vital Sign Value Performing Clinician Dorothy salamancay 02-10-2025 14:50-0400 Body temperature 98.3 [degF] Dr. Wolfgang Conde MD Work Phone: [facility] 02-10-2025 14:50-0400 Diastolic blood pressure 75 mm[Hg] Dr. Wolfgang Conde MD Work Phone: [facility] 02-10-2025 14:50-0400 Heart rate 67 /min Dr. Wolfgang Conde MD Work Phone: [facility] 02-10-2025 14:50-0400 Respiratory rate 14 /min Dr. Wolfgang Conde MD Work Phone: [facility] 02-10-2025 14:50-0400 SaO2% (BldA) [Mass fraction] 97 % Dr. Wolfgang Conde MD Work Phone: [facility] 02-10-2025 14:50-0400 Systolic blood pressure 110 mm[Hg] Dr. Wolfgang Conde MD Work Phone: [facility] 02-09-2025 08:22-0400 Body height 170.[address] Wolfgang Conde MD Work Phone: [facility] 02-09-2025 08:22-0400 Body weight 56.[address] Wolfgang Conde MD Work Phone: [facility] 02-08-2025 15:39-0400 Body mass index (BMI) [Ratio] 19.5 kg/m2 Dr. Wolfgang Conde MD Work Phone: [facility] 02-08-2025 15:01-0400 Body temperature 97.8 [degF] Dr. Wolfgang Conde MD Work Phone: [facility] 02-08-2025 15:01-0400 Diastolic blood pressure 84 mm[Hg] Dr. Wolfgang Conde MD Work Phone: [facility] 02-08-2025 15:01-0400 Heart rate 51 /min Dr. Wolfgang Conde MD Work Phone: [facility] 02-08-2025 15:01-0400 Respiratory rate 13 /min Dr. Wolfgang Conde MD Work Phone: [facility] 02-08-2025 15:01-0400 SaO2% (BldA) [Mass fraction] 100 % Dr. Wolfgang Conde MD Work Phone: [facility] 02-08-2025 15:01-0400 Systolic blood pressure 129 mm[Hg] Dr. Wolfgang Conde MD Work Phone: [facility] 02-08-2025 12:10-0400 Body mass index (BMI) [Ratio] 19.5 kg/m2 Dr. Wolfgang Conde MD Work Phone: [facility] 02-08-2025 12:10-0400 Body weight 56.[address] Wolfgang Conde MD Work Phone: [facility] 02-08-2025 11:55-0400 Body height 170.[address] Wolfgang Conde MD Work Phone: [facility] 01-23-2025 10:30-0400 Body temperature 98.2 [degF] Dr. Wolfgang Conde MD Work Phone: [facility] 01-23-2025 10:30-0400 Diastolic blood pressure 81 mm[Hg] Dr. Wolfgang Conde MD Work Phone: [facility] 01-23-2025 10:30-0400 Heart rate 76 /min Dr. Wolfgang Conde MD Work Phone: [facility] 01-23-2025 10:30-0400 Respiratory rate 16 /min Dr. Wolfgang Conde MD Work Phone: [facility] 01-23-2025 10:30-0400 SaO2% (BldA) [Mass fraction] 91 % Dr. Wolfgang Conde MD Work Phone: [facility] 01-23-2025 10:30-0400 Systolic blood pressure 123 mm[Hg] Dr. Wolfgang Conde MD Work Phone: [facility] 01-22-2025 23:50-0400 Body height 172.[address] Wolfgang Conde MD Work Phone: [facility] 01-22-2025 23:50-0400 Body mass index (BMI) [Ratio] 18.1 kg/m2 Dr. Wolfgang Conde MD Work Phone: [facility] 01-22-2025 23:50-0400 Body weight 54.[address] Wolfgang Conde MD Work Phone: [facility] 12-01-2024 14:19-0400 Body height 172.72 cm No Primary Care Physician [facility] 12-01-2024 14:17-0400 Body mass index (BMI) [Ratio] 21.1 kg/m2 No Primary Care Physician [facility] 12-01-2024 14:17-0400 Body weight 63.04 kg No Primary Care Physician [facility] 12-01-2024 14:17-0400 Diastolic blood pressure 82 mm[Hg] No Primary Care Physician [facility] 12-01-2024 14:17-0400 Heart rate 49 /min No Primary Care Physician [facility] 12-01-2024 14:17-0400 Respiratory rate 18 /min No Primary Care Physician [facility] 12-01-2024 14:17-0400 SaO2% (BldA) [Mass fraction] 98 % No Primary Care Physician [facility] 12-01-2024 14:17-0400 Systolic blood pressure 140 mm[Hg] No Primary Care Physician [facility] 11-10-2023 15:29-0400 Body height 172.72 cm No Primary Care Physician [facility] 11-10-2023 15:20-0400 Body mass index (BMI) [Ratio] 20.7 kg/m2 No Primary Care Physician [facility] 11-10-2023 15:20-0400 Body weight 61.68 kg No Primary Care Physician [facility] 11-10-2023 15:20-0400 Diastolic blood pressure 80 mm[Hg] No Primary Care Physician [facility] 11-10-2023 15:20-0400 Heart rate 64 /min No Primary Care Physician [facility] 11-10-2023 15:20-0400 Respiratory rate 16 /min No Primary Care Physician [facility] 11-10-2023 15:20-0400 Systolic blood pressure 135 mm[Hg] No Primary Care Physician [facility] 07-17-2023 13:46-0500 Body height 172.72 cm No Primary Care Physician [facility] 07-17-2023 13:46-0500 Body mass index (BMI) [Ratio] 21.2 kg/m2 No Primary Care Physician [facility] 07-17-2023 13:46-0500 Body weight 63.5 kg No Primary Care Physician [facility] 07-17-2023 13:46-0500 Diastolic blood pressure 88 mm[Hg] No Primary Care Physician [facility] 07-17-2023 13:46-0500 Heart rate 62 /min No Primary Care Physician [facility] 07-17-2023 13:46-0500 Respiratory rate 16 /min No Primary Care Physician [facility] 07-17-2023 13:46-0500 Systolic blood pressure 169 mm[Hg] No Primary Care Physician [facility] 12-19-2016 12:52-0400 BMI (Body Mass Index) 20.77 kg/m2 [facility] Work Phone: 12-19-2016 12:52-0400 Body weight 58.38 kg Saritha Ram [facility] Work Phone: 12-19-2016 12:52-0400 BP Diastolic 62 mm[Hg] Alisia Vasquez [facility] Work Phone: 12-19-2016 12:52-0400 BP Systolic 120 mm[Hg] Alisia Vasquez [facility] Work Phone: 12-19-2016 12:52-0400 Height 167.64 cm Alisia Vasquez [facility] Work Phone: 12-19-2016 12:52-0400 Pulse [...] 06-20-2015 13:01-0500 Heart rate 47 /min Harken Ram [facility] Work Phone: 07-27-2012 14:18-0500 Body Temperature 96.9 [degF] MD [facility] Work Phone: 07-15-2012 10:40-0500 Heart rate 471 ms Harumi Leanna [facility] Work Phone: 10-11-2011 11:14-0400 Height 167.64 cm Wolfgang Conde MD [facility] Work Phone: Encounters Encounter Date Encounter Type Care Provider Facility Start: 05-03-2025 ambulatory Marcelino Palma Martin DANELLE Facil ity:[facility] Start: 04-04-2025 End: 04-04-2025 ambulatory Marcelino Palma Salazar DANELLE Facility:[facility] Start: 04-01-2025 End: 04-01-2025 ambulatory No Primary Care Physician Facility:[facility] Start: 03-02-2025 ambulatory No Primary Car e Physician Facility:[facility] Start: 03-01-2025 End: 03-01-2025 ambulatory No Primary Care Physician Facility:[facility] Start: 02-10-2025 Non-patient / Non-visit Dr. Isadora Arndt MD [facility] Work Phone: Start: 02-09-2025 ambulatory Marcelino Arizmendi NP Facility :[facility] Start: 02-09-2025 Non-patient / Non-visit Dr. Isadora Arndt MD [facility] Work Phone: Start: 02-08-2025 End: 02-10-2025 ambulatory No Primary Care Physician Facility:[facility] Start: 02-08-2025 End: 02-10-2025 Evaluation and management of inpatient Dr. Ajith Zimmer DO -[facility] Work Phone: Start: 02-08-2025 End: 02-10-[address] Wolfgang Conde MD Work Phone: -[facility] Start: 01-22-2025 End: 01-23-2025 Emergency department patient visit Dr. Wolfgang Conde MD Work Phone: -Emergency Department Work Phone: Start: 12-01-2024 End: 12-01-2024 ambulatory No Primary Care Physician [facility] Work Phone: Start: 12-01-2024 End: 12-01-2024 Patient encounter procedure Marcelion Arizmendi PONY RIDE OPERATOR-C -[facility] Work Phone: Start: 11-12-2023 End: 11-12-2023 Non-patient / Non-visit No Primary Care Physician [facility] Start: 11-10-2023 End: 11-10-2023 ambulatory No Primary Care Physician [facility] Work Phone: Start: 11-10-2023 End: 11-10-2023 Patient encounter procedure No Primary Care Physician [facility] Work Phone: Start: 11-10-2023 End: 11-10-2023 Patient encounter procedure No Primary Care Physician [facility] Work Phone: Start: 10-22-2023 End: 10-22-2023 ambulatory No Primary Care Physician [facility] Work Phone: Start: 10-22-2023 End: 10-22-2023 Patient encounter procedure No Primary Care Physician [facility] Work Phone: Start: 07-17-2023 End: 07-17-2023 Patient encounter procedure No Primary Care Physician [facility] Work Phone: Procedures Date Procedure [...] End: 12-19-2016 MMM Wolfgang Conde MD Start: 09-16-2016 End: 12-19-2016 Follow [...] [AGGREGATE] Gwen Rivera Start: 06-18-2016 End: 06-18-2016 HOUSE CALLS NURSE Jeimy Huang PA-C Work Phone: Start: 06-18-2016 End: 12-19-2016 Follow Up Appt 3 months Gwen Rivera Start: 06-18-2016 End: 06-18-2016 Follow Up Appt 6 months Jeimy Huang PA-C Work Phone: Start: 06-18-2016 End: 12-19-2016 Pacer Clinic Wolfgang Conde MD Start: 06-18-2016 End: 07-04-2016 Prgrmg eval implantable in prsn dual lead venitab Wolfgang Conde MD Start: 06-18-2016 End: 06-18-2016 HOUSE CALLS NURSE Jeimy Huang PA-C Work Phone: Start: 06-18-2016 [...] Wolfgang Conde MD Start: 12-19-2015 End: 12-19-2015 [facility] Wolfgang Conde MD Start: 12-19-2015 End: 06-11-2016 [...] PA-C Work Phone: Start: 06-20-2015 End: 06-20-2015 HOUSE CALLS NURSE Jeimy Huang PA-C Work Phone: Start: 06-20-2015 End: 06-20-2015 Ecg routine ecg w/least 12 lds w/i&r Jeimy uHang PA-C Work Phone: Start: 06-20-2015 End: 06-20-2015 Follow Up Appt 6 months Jeimy Huang PA-C Work Phone: Start: 06-20-2015 End: 07-03-2015 Nuclear stress test -Dunia Huang PA-C Work Phone: Start: 06-20-2015 End: 06-20-2015 *BMP Jeimy Huang PA-C Work Phone: Start: 06-20-2015 End: 06-20-2015 *CBC with Differential Jeimy Huang PA-C Work Phone: Start: 06-20-2015 End: 06-20-2015 HOUSE CALLS NURSE Jeimy Huang PA-C Work Phone: Start: 06-20-2015 End: 06-20-2015 Electrocardiogram, complete Jeimy Huang PA-C Work Phone: Start: 06-20-2015 End: 06-20-2015 Follow Up Appt 6 months Jeimy Huang PA-C Work Phone: Start: 06-20-2015 End: 07-03-2015 Nuclear stress test -Lexmirlande Huang PA-C Work Phone: Start: 05-30-2015 End: 06-13-2015 Follow Up Appt 3 months Wolfgang S Elton, M D Start: 05-30-2015 End: 06-13-2015 Pacer Clinic Wolfgang Conde MD Start: 05-30-2015 End: 05-31-2015 Prgrmg eval implantable in prsn dual lead dfsara Conde MD Start: 05-30-2015 End: 06-13-2015 Follow [...] dual lead venitab Wolfgang Conde MD Start: 02-28-2015 End: 06-13-2015 [...] PA-C Work Phone: Start: 06-13-2014 End: 06-13-2014 HOUSE CALLS NURSE Jeimy Huang PA-C Work Phone: Start: 06-13-2014 [...] PA-C Work Phone: Start: 06-13-2014 End: 06-13-2014 HOUSE CALLS NURSE Jeimy Huang PA-C Work Phone: Start: 06-13-2014 [...] PA-C Work Phone: Start: 06-15-2013 End: 06-15-2013 HOUSE CALLS NURSE Jeimy Huang PA-C Work Phone: Start: 06-15-2013 End: 06-15-2013 Follow Up Appt 6 months Jeimy Huang PA-C Work Phone: Start: 06-15-2013 End: 06-16-2013 Lipid 1996 panel - Serum or Plasma Jeimy Huang PA-C Work Phone: Start: 06-15-2013 End: 06-16-2013 *Hepatic Function Panel Jeimy Huang PA-C Work Phone: Start: 06-15-2013 End: 06-15-2013 HOUSE CALLS NURSE Jeimy Huang PA-C Work Phone: Start: 06-15-2013 [...] 02-10-2013 Icd device progr eval, dual Wolfgang Cnode MD Start: 02-10-2013 End: 06-03-2013 Pacer Clinic [...] Start: 11-11-2012 End: 06-16-2013 Lipid panel [AGGREGATE] Gwne Rivera Start: 11-10-2012 End: 06-03-2013 Follow Up [...] of coronary artery stent placement Marcelino Arizmendi PONY RIDE OPERATOR-C Comment on above: [id number] and Mid LAD w/ Veriflex BMS 3.0 x 20 mm and Micro Public Relations Coordinator BMS 2.5 x 18 mm 07/28/09 Plan of Treatment Date Care Activity Detail Author Start: 02-10-2025 Patient discharge [facility] Start: 02-08-2025 Following clinical pathway protocol [facility] Start: 02-08-2025 Patient referral to dietitian [facility] Start: 02-08-2025 Ambulation without limitation [facility] Start: 02-08-2025 Assessment of risk of venous thromboembolism [facility] Start: 02-08-2025 Insertion of catheter into peripheral vein [facility] Start: 02-08-2025 Measuring intake and output [facility] Start: 02-08-2025 Oxygen therapy [facility] Start: 02-08-2025 Providing care according to standard [facility] Start: 02-08-2025 Referral to occupational therapist [facility] Start: 02-08-2025 Referral to service [facility] Start: 02-08-2025 [facility] Start: 02-08-2025 Verification routine [facility] Start: 02-08-2025 Hospital admission, emergency, from emergency room, medical nature [facility] Start: 02-08-2025 Admission procedure [facility] Start: 01-23-2025 [facility] Start: 01-23-2025 Suicide precautions [facility] Start: 11-10-2023 Patient referral [facility] Work Phone: Start: 07-17-2017 End: 07-17-2017 Appointment Appointment [facility] Work Phone: Start: 07-02-2017 End: 07-02-2017 Appointment Appointment [facility] Work Phone: Start: 06-12-2017 End: 06-19-2017 *Hepatic Function Panel *Hepatic Function Panel [facility] Work Phone: Start: 06-12-2017 End: 06-19-2017 Lipid panel [AGGREGATE] *Lipid Profile CC PCP [facility] Work Phone: Start: 06-12-2017 End: 12-20-2016 *Hepatic Function Panel *Hepatic Function Panel [facility] Work Phone: Start: 06-12-2017 End: 12-20-2016 Lipid panel [AGGREGATE] *Lipid Profile CC PCP [facility] Work Phone: Start: 04-04-2017 End: 04-05-2017 Follow Up Appt 3 months Follow Up Appt 3 months [facility] Work Phone: Start: 04-04-2017 End: 04-05-2017 Pacer Clinic [facility] Work Phone: Start: 04-04-2017 End: 04-04-2017 Appointment Appointment [facility] Work Phone: Start: 04-04-2017 End: [...] 12-27-2016 End: 12-27-2016 Pacer Clinic Pacer Clinic [facility] Work Phone: Start: 12-27-2016 End: 12-27-2016 Appointment Appointment [facility] Work Phone: Start: 12-27-2016 End: 12-27-2016 Appointment Appointment [facility] Work Phone: Start: 12-27-2016 End: 12-27-2016 Follow Up Appt 3 months Follow Up Appt 3 months [facility] Work Phone: Start: 12-27-2016 End: 12-27-2016 Pacer Clinic Pacer Clinic [facility] Work Phone: Start: 12-19-2016 End: 12-19-2016 Follow Up Appt 6 months Follow Up Appt 6 months [facility] Work Phone: Start: 12-19-2016 End: 12-19-2016 MMM MMM [facility] Work Phone: Start: 12-19-2016 End: 12-19-2016 Appointment Appointment [facility] Work Phone: Start: 12-19-2016 End: 12-19-2016 Appointment Appointment [facility] Work Phone: Start: 12-19-2016 End: 12-19-2016 Follow Up Appt 6 months Follow Up Appt 6 months [facility] Work Phone: Start: 12-19-2016 End: 12-19-2016 MMM MMM [facility] Work Phone: Start: 09-16-2016 End: 12-19-2016 Follow Up Appt 3 months Follow Up Appt 3 months [facility] Work Phone: Start: 09-16-2016 End: 12-19-2016 Pacer Clinic Pacer Clinic [facility] Work Phone: Start: 09-16-2016 End: 12-19-2016 Follow Up Appt 3 months Follow Up Appt 3 months [facility] Work Phone: Start: 09-16-2016 End: 12-19-2016 Pacer Clinic Pacer Clinic [facility] Work Phone: Start: 08-19-2016 End: 12-10-2016 *Hepatic Function Panel *Hepatic Function Panel [facility] Work Phone: Start: 08-19-2016 End: 12-10-2016 Lipid panel [AGGREGATE] *Lipid Profile CC PCP [facility] Work Phone: Start: 08-19-2016 End: 12-10-2016 *Hepatic Function Panel *Hepatic Function Panel [facility] Work Phone: Start: 08-19-2016 End: 12-10-2016 Lipid panel [AGGREGATE] *Lipid Profile CC PCP [facility] Work Phone: Start: 06-18-2016 End: 06-18-2016 HOUSE CALLS NURSE HOUSE CALLS NURSE [facility] Work Phone: Start: 06-18-2016 End: 12-19-2016 Follow Up Appt 3 months Follow Up Appt 3 months [facility] Work Phone: Start: 06-18-2016 End: 06-18-2016 Follow Up Appt 6 months Follow Up Appt 6 months [facility] Work Phone: Start: 06-18-2016 End: 12-19-2016 Pacer Clinic Pacer Clinic [facility] Work Phone: Start: 06-18-2016 End: 06-18-2016 [facility] HOUSE CALLS NURSE [facility] Work Phone: Start: 06-18-2016 End: 12-19-2016 Follow Up Appt 3 months Follow Up Appt 3 months [facility] Work Phone: Start: 06-18-2016 End: 06-18-2016 Follow Up Appt 6 months Follow Up Appt 6 months [facility] Work Phone: Start: 06-18-2016 End: 12-19-2016 Pacer Clinic Pacer Clinic [facility] Work Phone: Start: 03-19-2016 End: 06-11-2016 Follow Up Appt 3 months Follow Up Appt 3 months [facility] Work Phone: Start: 03-19-2016 End: 06-11-2016 Pacer Clinic Pacer Clinic [facility] Work Phone: Start: 03-19-2016 End: 06-11-2016 Follow Up Appt 3 months Follow Up Appt 3 months [facility] Work Phone: Start: 03-19-2016 End: 06-11-2016 Pacer Clinic Pacer Clinic [facility] Work Phone: Start: 02-06-2016 End: 02-21-2016 *Hepatic Function Panel *Hepatic Function Panel [facility] Work Phone: Start: 02-06-2016 End: 02-21-2016 Lipid panel [AGGREGATE] *Lipid Profile CC PCP [facility] Work Phone: Start: 02-06-2016 End: 02-21-2016 *Hepatic Function Panel *Hepatic Function Panel [facility] Work Phone: Start: 02-06-2016 End: 02-21-2016 Lipid panel [AGGREGATE] *Lipid Profile CC PCP [facility] Work Phone: Start: 12-19-2015 End: 06-11-2016 Follow Up Appt 3 months Follow Up Appt 3 months [facility] Work Phone: Start: 12-19-2015 End: 12-19-2015 Follow Up Appt 6 months Follow Up Appt 6 months [facility] Work Phone: Start: 12-19-2015 End: 12-19-2015 MMM MMM [facility] Work Phone: Start: 12-19-2015 End: 06-11-2016 Pacer Clinic Pacer Clinic [facility] Work Phone: Start: 12-19-2015 End: 06-11-2016 Follow Up Appt 3 months Follow Up Appt 3 months [facility] Work Phone: Start: 12-19-2015 End: 12-19-2015 Follow Up Appt 6 months Follow Up Appt 6 months [facility] Work Phone: Start: 12-19-2015 End: 12-19-2015 MMM MMM [facility] Work Phone: Start: 12-19-2015 End: 06-11-2016 Pacer Clinic Pacer Clinic [facility] Work Phone: Start: 09-04-2015 End: 06-11-2016 Follow Up Appt 3 months Follow Up Appt 3 months [facility] Work Phone: Start: 09-04-2015 End: 06-11-2016 Pacer Clinic Pacer Clinic [facility] Work Phone: Start: 09-04-2015 End: 06-11-2016 Follow Up Appt 3 months Follow Up Appt 3 months [facility] Work Phone: Start: 09-04-2015 End: 06-11-2016 Pacer Clinic Pacer Clinic [facility] Work Phone: Start: 07-14-2015 End: 08-07-2015 *Hepatic Function Panel *Hepatic Function Panel [facility] Work Phone: Start: 07-14-2015 End: 08-07-2015 Lipid panel [AGGREGATE] *Lipid Profile CC PCP [facility] Work Phone: Start: 07-14-2015 End: 08-07-2015 *Hepatic Function Panel *Hepatic Function Panel [facility] Work Phone: Start: 07-14-2015 End: 08-07-2015 Lipid panel [AGGREGATE] *Lipid Profile CC PCP [facility] Work Phone: Start: 06-20-2015 End: 06-20-2015 *BMP *BMP [facility] Work Phone: Start: 06-20-2015 End: 06-20-2015 *CBC with Differential *CBC with Differential [facility] Work Phone: Start: 06-20-2015 End: 06-20-2015 HOUSE CALLS NURSE HOUSE CALLS NURSE [facility] Work Phone: Start: 06-20-2015 End: 06-20-2015 Ecg routine ecg w/least 12 lds w/i&r EKG (In office) [facility] Work Phone: Start: 06-20-2015 End: 06-20-2015 Follow Up Appt 6 months Follow Up Appt 6 months [facility] Work Phone: Start: 06-20-2015 End: 06-20-2015 Nuclear stress test -Lexiscan Nuclear stress test -Lexiscan [facility] Work Phone: Start: 06-20-2015 End: 06-20-2015 *BMP *BMP [facility] Work Phone: Start: 06-20-2015 End: 06-20-2015 *CBC with Differential *CBC with Differential [facility] Work Phone: Start: 06-20-2015 End: 06-20-2015 HOUSE CALLS NURSE HOUSE CALLS NURSE [facility] Work Phone: Start: 06-20-2015 End: 06-20-2015 Electrocardiogram, complete EKG (In office) [facility] Work Phone: Start: 06-20-2015 End: 06-20-2015 Follow Up Appt 6 months Follow Up Appt 6 months [facility] Work Phone: Start: 06-20-2015 End: 06-20-2015 Nuclear stress test -Lexiscan Nuclear stress test -Lexiscan [facility] Work Phone: Start: 05-30-2015 End: 06-13-2015 Follow Up Appt 3 months Follow Up Appt 3 months [facility] Work Phone: Start: 05-30-2015 End: 06-13-2015 Pacer Clinic Pacer Clinic [facility] Work Phone: Start: 05-30-2015 End: 06-13-2015 Follow Up Appt 3 months Follow Up Appt 3 months [facility] Work Phone: Start: 05-30-2015 End: 06-13-2015 Pacer Clinic Pacer Clinic [facility] Work Phone: Start: 02-28-2015 End: 06-13-2015 Follow Up Appt 3 months Follow Up Appt 3 months [facility] Work Phone: Start: 02-28-2015 End: 06-13-2015 Pacer Clinic Pacer Clinic [facility] Work Phone: Start: 02-28-2015 End: 06-13-2015 Follow Up Appt 3 months Follow Up Appt 3 months [facility] Work Phone: Start: 02-28-2015 End: 06-13-2015 Pacer Clinic Pacer Clinic [facility] Work Phone: Start: 01-10-2015 End: 01-10-2015 *Hepatic Function Panel *Hepatic Function Panel [facility] Work Phone: Start: 01-10-2015 End: 01-10-2015 Lipid panel [AGGREGATE] *Lipid Profile CC PCP [facility] Work Phone: Start: 01-10-2015 End: 01-10-2015 *Hepatic Function Panel *Hepatic Function Panel [facility] Work Phone: Start: 01-10-2015 End: 01-10-2015 Lipid panel [AGGREGATE] *Lipid Profile CC PCP [facility] Work Phone: Start: 12-20-2014 End: 12-20-2014 Follow Up Appt 6 months Follow Up Appt 6 months [facility] Work Phone: Start: 12-20-2014 End: 12-20-2014 MMM MMM [facility] Work Phone: Start: 12-20-2014 End: 12-20-2014 Follow Up Appt 6 months Follow Up Appt 6 months [facility] Work Phone: Start: 12-20-2014 End: 12-20-2014 MMM MMM [facility] Work Phone: Start: 11-21-2014 End: 06-13-2015 Follow Up Appt 3 months Follow Up Appt 3 months [facility] Work Phone: Start: 11-21-2014 End: 06-13-2015 Pacer Clinic Pacer Clinic [facility] Work Phone: Start: 11-21-2014 End: 06-13-2015 Follow Up Appt 3 months Follow Up Appt 3 months [facility] Work Phone: Start: 11-21-2014 End: 06-13-2015 Pacer Clinic Pacer Clinic [facility] Work Phone: Start: 08-19-2014 End: 06-13-2015 Follow Up Appt 3 months Follow Up Appt 3 months [facility] Work Phone: Start: 08-19-2014 End: 06-13-2015 Pacer Clinic Pacer Clinic [facility] Work Phone: Start: 08-19-2014 End: 06-13-2015 Follow Up Appt 3 months Follow Up Appt 3 months [facility] Work Phone: Start: 08-19-2014 End: 06-13-2015 Pacer Clinic Pacer Clinic [facility] Work Phone: Start: 06-13-2014 End: 06-13-2014 *Hepatic Function Panel *Hepatic Function Panel [employer] [facility] Work Phone: Start: 06-13-2014 End: 06-13-2014 HOUSE CALLS NURSE HOUSE CALLS NURSE [facility] Work Phone: Start: 06-13-2014 End: 06-13-2014 Ecg routine ecg w/least 12 lds w/i&r EKG (In office) [facility] Work Phone: Start: 06-13-2014 End: 06-13-2014 Follow Up Appt 6 months Follow Up Appt 6 months [facility] Work Phone: Start: 06-13-2014 End: 06-13-2014 Lipid panel [AGGREGATE] *Lipid Profile CC PCP [facility] Work Phone: Start: 06-13-2014 End: 06-13-2014 *Hepatic Function Panel *Hepatic Function Panel [facility] Work Phone: Start: 06-13-2014 End: 06-13-2014 HOUSE CALLS NURSE HOUSE CALLS NURSE [facility] Work Phone: Start: 06-13-2014 End: 06-13-2014 Electrocardiogram, complete EKG (In office) [facility] Work Phone: Start: 06-13-2014 End: 06-13-2014 Follow Up Appt 6 months Follow Up Appt 6 months [facility] Work Phone: Start: 06-13-2014 End: 06-13-2014 Lipid panel [AGGREGATE] *Lipid Profile CC PCP [facility] Work Phone: Start: 05-18-2014 End: 05-31-2014 Follow Up Appt 3 months Follow Up Appt 3 months [facility] Work Phone: Start: 05-18-2014 End: 05-31-2014 Pacer Clinic Pacer Clinic [facility] Work Phone: Start: 05-18-2014 End: 05-31-2014 Follow Up Appt 3 months Follow Up Appt 3 months [facility] Work Phone: Start: 05-18-2014 End: 05-31-2014 Pacer Clinic Pacer Clinic [facility] Work Phone: Start: 02-14-2014 End: 05-31-2014 Follow Up Appt 3 months Follow Up Appt 3 months [facility] Work Phone: Start: 02-14-2014 [...] 6 months Follow Up Appt 6 months [facility] Work Phone: Start: 12-14-2013 End: 12-14-2013 MMM MMM [facility] Work Phone: Start: 12-14-2013 End: 12-14-2013 Follow Up Appt 6 months Follow Up Appt 6 months [facility] Work Phone: Start: 12-14-2013 End: 12-14-2013 MMM MMM [facility] Work Phone: Start: 12-12-2013 End: 12-14-2013 *Hepatic Function Panel *Hepatic Function Panel [facility] Work Phone: Start: 12-12-2013 End: 12-14-2013 Lipid panel [AGGREGATE] *Lipid Profile CC PCP [facility] Work Phone: Start: 12-12-2013 End: 12-14-2013 *Hepatic Function Panel *Hepatic Function Panel [facility] Work Phone: Start: 12-12-2013 End: 12-14-2013 Lipid panel [AGGREGATE] *Lipid Profile CC PCP [facility] Work Phone: Start: 11-16-2013 End: 05-31-2014 Follow Up Appt 3 months Follow Up Appt 3 months [facility] Work Phone: Start: 11-16-2013 End: 05-31-2014 Pacer Clinic Pacer Clinic [facility] Work Phone: Start: 11-16-2013 End: 05-31-2014 Follow Up Appt 3 months Follow Up Appt 3 months [facility] Work Phone: Start: 11-16-2013 End: 05-31-2014 Pacer Clinic Pacer Clinic [facility] Work Phone: Start: 08-16-2013 End: 12-14-2013 Follow Up Appt 3 months Follow Up Appt 3 months [facility] Work Phone: Start: 08-16-2013 End: 12-14-2013 Pacer Clinic Pacer Clinic [facility] Work Phone: Start: 08-16-2013 End: 12-14-2013 Follow Up Appt 3 months Follow Up Appt 3 months [facility] Work Phone: Start: 08-16-2013 End: 12-14-2013 Pacer Clinic Pacer Clinic [facility] Work Phone: Start: 06-15-2013 End: 06-16-2013 *Hepatic Function Panel *Hepatic Function Panel [facility] Work Phone: Start: 06-15-2013 End: 06-15-2013 HOUSE CALLS NURSE HOUSE CALLS NURSE [facility] Work Phone: Start: 06-15-2013 End: 06-15-2013 Follow Up Appt 6 months Follow Up Appt 6 months [facility] Work Phone: Start: 06-15-2013 End: 06-16-2013 Lipid panel [AGGREGATE] *Lipid Profile CC PCP [facility] Work Phone: Start: 06-15-2013 End: 06-16-2013 *Hepatic Function Panel *Hepatic Function Panel [facility] Work Phone: Start: 06-15-2013 End: 06-15-2013 HOUSE CALLS NURSE HOUSE CALLS NURSE [facility] Work Phone: Start: 06-15-2013 End: 06-15-2013 Follow Up Appt 6 months Follow Up Appt 6 months [facility] Work Phone: Start: 06-15-2013 End: 06-16-2013 Lipid panel [AGGREGATE] *Lipid Profile CC PCP [facility] Work Phone: Start: 05-14-2013 End: 06-03-2013 Follow Up Appt 3 months Follow Up Appt 3 months [facility] Work Phone: Start: 05-14-2013 End: 06-03-2013 Pacer Clinic Pacer Clinic [facility] Work Phone: Start: 05-14-2013 End: 06-03-2013 Follow Up Appt 3 months Follow Up Appt 3 months [facility] Work Phone: Start: 05-14-2013 End: 06-03-2013 Pacer Clinic Pacer Clinic [facility] Work Phone: Start: 02-10-2013 End: 06-03-2013 Follow Up Appt 3 months Follow Up Appt 3 months [facility] Work Phone: Start: 02-10-2013 End: 06-03-2013 Pacer Clinic Pacer Clinic [facility] Work Phone: Start: 02-10-2013 End: 06-03-2013 Follow Up Appt 3 months Follow Up Appt 3 months [facility] Work Phone: Start: 02-10-2013 End: 06-03-2013 Pacer Clinic Pacer Clinic [facility] Work Phone: Start: 12-17-2012 End: 12-17-2012 Follow Up Appt 6 months Follow Up Appt 6 months [facility] Work Phone: Start: 12-17-2012 End: 12-17-2012 MMM MMM [facility] Work Phone: Start: 12-17-2012 End: 12-17-2012 Follow Up Appt 6 months Follow Up Appt 6 months [facility] Work Phone: Start: 12-17-2012 End: 12-17-2012 MMM MMM [facility] Work Phone: Start: 11-11-2012 End: 06-16-2013 *Hepatic Function Panel *Hepatic Function Panel [facility] Work Phone: Start: 11-11-2012 End: 06-16-2013 Lipid panel [AGGREGATE] *Lipid Profile [facility] Work Phone: Start: 11-11-2012 End: 06-16-2013 *Hepatic Function Panel *Hepatic Function Panel [facility] Work Phone: Start: 11-11-2012 End: 06-16-2013 Lipid panel [AGGREGATE] *Lipid Profile [facility] Work Phone: Start: 11-10-2012 End: 06-03-2013 Follow Up Appt 3 months Follow Up Appt 3 months [facility] Work Phone: Start: 11-10-2012 End: 06-03-2013 Pacer Clinic Pacer Clinic [facility] Work Phone: Start: 11-10-2012 End: 06-03-2013 Follow Up Appt 3 months Follow Up Appt 3 months [facility] Work Phone: Start: 11-10-2012 End: 06-03-2013 [...] Follow Up Appt 6 months [facility] Work Phone: Start: 06-03-2012 End: 06-03-2012 *Hepatic Function Panel *Hepatic Function Panel [facility] Work Phone: Start: 06-03-2012 End: 06-03-2012 Echocardiography Echocardiogram (complete) [facility] Work Phone: Start: 06-03-2012 End: 06-03-2012 Follow Up Appt 6 months Follow Up Appt 6 months [facility] Work Phone: Start: 06-03-2012 End: 06-10-2012 Lipid panel [AGGREGATE] *Lipid Profile [facility] Work Phone: Start: 06-03-2012 End: 06-03-2012 *Hepatic Function Panel *Hepatic Function Panel [facility] Work Phone: Start: 06-03-2012 End: 06-03-2012 Echocardiography Echocardiogram (complete) [facility] Work Phone: Start: 06-03-2012 End: 06-03-2012 Follow Up Appt 6 months Follow Up Appt 6 months [facility] Work Phone: Start: 06-03-2012 End: 06-10-2012 Lipid panel [AGGREGATE] *Lipid Profile [facility] Work Phone: Start: 10-11-2011 End: 06-03-2012 *Hepatic Function Panel *Hepatic Function Panel [facility] Work Phone: Start: 10-11-2011 End: 10-11-2011 Follow Up Appt 6 months Follow Up Appt 6 months [facility] Work Phone: Start: 10-11-2011 End: 06-03-2012 Lipid panel [AGGREGATE] *Lipid Profile [facility] Work Phone: Start: 10-11-2011 End: 06-03-2012 *Hepatic Function Panel *Hepatic Function Panel [facility] Work Phone: Start: 10-11-2011 End: 10-11-2011 Follow Up Appt 6 months Follow Up Appt 6 months [facility] Work Phone: Start: 10-11-2011 End: 06-03-2012 Lipid panel [AGGREGATE] *Lipid Profile [facility] Work Phone: Patient Education [facility] Work Phone: Patient referral [facility] Work Phone: Immunizations Immunization Date Immunization Notes Care Provider Fa noel 10-12-2020 Covid (Pfizer) No Primary Ca re Physician [facility] 09-21-2020 Covid (Pfizer) No Primary Ca re Physician [facility] Payers Date Payer Category Payer Self-pay [id number] 2012 Medicare [id number] Medicare [id number] Unknown [id number] 2.16.8 [id number] Unknown [id number] 2.16.8 [id number] Unknown [id number] 2.16.8 [id number] Unknown [id number] 2.16.8 [id number] Unknown [id number] 2.16.8 [id number] Unknown [id number] 2.16.8 [id number] Unknown [id number] 2.16.8 [id number] Unknown [id number] 2.16.8 [id number] Unknown [id number] 2.16.8 [id number] Unknown [id number] 2.16.8 [id number] Unknown [id number] 2.16.8 [id number] Unknown [id number] 2.16.8 [id number] Unknown [id number] 2.16.8 [id number] Unknown [id number] 2.16.8 [id number] Social History Date Type Detail Facility [facility] Start: 1940 Sex Assigned At Male [facility] Start: 07-17-2023 End: 02-08-2025 Tobacco smoking status [facility] Never smoked tobacco (finding) [facility] Goals Date Patient Goal Desired Activity /State Functional Status Date Assessment Result Facility 02-10-2025 Functional status [facility] Work Phone: Mental Status Date Assessment Result Facility 02-10-2025 Cognitive function Voice/Name;Touch/Shaki ng [facility] Work Phone: 02-08-2025 Cognitive function Level Of Cons ciousness Follows Commands;Drowsy [facility] Work Phone: Clinical Notes 07-28-2009 to 02-10-2025 Note Date & Type Note Facility 02-10-2025 Discharge summary [facility] 02-10-2025 Discharge summary [facility] 02-10-2025 Hospital Discharg e instructions Additional Instructions Date of Discharge: 02/10/25 [facility] Work Phone: 02-10-2025 Discharge summary Note Date/Time February 10, 2025 3:37pm [facility] Medical Records Department [address] [place] [address] Discharge Summary 02/10/25 1105 MR#: [id number] Acct: [id number] Name: SOPHIA CORTES Rep #:[id number] : 1940 84 From: Isadora Arndt MD PCP: Care Physician,No Primary Status :ADM MARCELA Location: [place] [address] Providers Date of Admission: 02/08/25 Date of [...] his sister was his medical power of sports attorney. He came back to the ED [...] 02/09/25 08:40 RMA (Rec: 02/09/25 08:40 RMA [id number]) Nutrition Malnutrition Evidence of Yes Malnutrition Exists [...] % (Auto) 66.9, Lymph % (Auto) 20.9, Rincon % (Auto) 10.1 H, Eos % (Auto) [...] as described. Small left hydrocele. Reading Location: [id number] D/C Instructions Discharge Activity: Return to Normal [...] in before D/C Order can be placed): [facility] Charges/Coding Visit Charges Inpatient E&M: 10629 Disch Hosp >30min 02/10/25 1610 <Electronically signed by Isadora Arndt MD> Cosigner Signature (if applicable): CC: Dr. Isadora Arndt MD; No Primary Care Physician~ Signed [facility] Work Phone: 1(281) 903-932107-31-2025 [facility] Medical Records Department [address] [place] [address] Discharge Summary 02/10/25 1105 MR#: [id number] Acct: [id number] Name: SOPHIA CORTES Rep #: [id number] : 1940 84 From: Isadora Arndt MD PCP: Care Physician,No Primary Status:ADM MARCELA Location: [place] [address] Providers Date of Admission: 02/08/25 Date of [...] his sister was his medical power of sports attorney. He came back to the ED [...] normal respiratory effort, nor (more content not included)...[facility]07-30-2025 Progress note Author Isadora Arndt [facility] Note Date/Time February 09, 2025 4:26 pm [facility] Medical Records Department [address] [place] [address] Progress Note 02/09/25 0936 MR#: [id number] Acct: [id number] Name: SOPHIA CORTES Rep #:[id number] : 1940 84 From: Isadora Arndt MD PCP: Care Physician,No Primary Status :ADM MARCELA Location: MS3 [id number] Subjective Subjective Patient seen and examined. HE [...] 02/09/25 08:40 RMA (Rec: 02/09/25 08:40 RMA [id number]) Nutrition Malnutrition Evidence of Yes Malnutrition Exists [...] (Auto) 74.4 H, Lymph % (Auto) 13.6 L,Rincon % (Auto) 10.7 H, Eos % (Auto) [...] Clarity Clear, Urine pH 5.0, Ur Specific Sterling 1.025, Urine Protein 30 H, Urine Glucose [...] IMPRESSION: No acute intracranial pathology. Reading Location: [facility] Chest X-Ray 02/08/25 12:10 IMPRESSION: No acute cardiopulmonary process. Reading Location: [facility] Physical Exam Const alert, oriented [...] no intubation Charges/Coding Visit Charges Inpatient E&M: 91634 Subs Hosp L2 02/09/25 1431 <Electronically signed [...] Signature (if applicable): Date cc: ~* Signed [facility] Work Phone: 1(964) 876-671707-30-2025 Progress note [facility] Medical Records Department [address] [place] [address] Progress Note 02/09/25 0936 MR#: [id number] Acct: [id number] Name: SOPHIA CORTES Rep #:[id number] : 1940 84 From: Isadora Arndt MD PCP: Care Physician,No Primary Status :ADM MARCELA Location: [place] [address] Subjective Subjective Patient seen and examined. HE [...] 02/09/25 08:40 RMA (Rec: 02/09/25 08:40 RMA [id number]) Nutrition Malnutrition Evidence of Yes Malnutrition Exists [...] (Auto) 74.4 H, Lymph % (Auto) 13.6 L,Rincon % (Auto) 10.7 H, Eos % (Auto) [...] Clarity Clear, Urine pH 5.0, Ur Specific Sterling 1.025, Urine Protein 30 H, Urine Glucose [...] IMPRESSION: No acute cardiopulmonary process. Reading Location: [facility] Physical Exam Const alert, oriented [...] no intubation Charges/Coding Visit Charges Inpatient E&M: 08333 Subs Hosp L2 02/09/25 1431 Isadora Arndt [...] Signature (if applicable): Date cc: ~* Signed [facility]07-30-2025 Radiology Diagnostic study note [facility] Imaging Services [address] [place] [address] Testicular with Arterial Flow MR#: [id number] Acct: [id number] Name: SOPHIA CORTES Rep #: [id number] : 1940 M 84 From: Tony Albarado MD PCP: Care Physician,No Primary Status: ADM MARCELA Study:Testicular with Arterial Flow Date of E xam: 02/09/25 Exam# [id number] Ordering Dr: Greta Arndt MD PROCEDURE: TESTICULAR [...] as described. Small left hydrocele. Reading Location: [facility] CC: Dr. Isadora Arndt MD; No Primary Care Physician ~ Electronics Production Supervisor: Signed [facility]07-29-2025 History and physical note Author [facility] Note Date/Time February 08, 2025 3:36 pm [facility] Medical Records Department [address] [place] [address] H&P Exam - Hospitalist 02/08/25 1345 MR#: [id number] Acct: [id number] Name: SOPHIA CORTES Rep #:[id number] : 1940 84 From: Ajith pineda DO PCP: Care Physician,No Primary Status :ADM MARCELA Location: [facility] [id number] HPI - General General Date of Admission: 02/08/25 Date of Service: 02/08/25 Chief Complaint: Failure to thrive HPI Narrative SOPHIA CORTES, is a 84 M who presented to [facility] ED on 02/08/2025 with adult failure to thrive. Patient lives at home alone. He was recently seen in the ED here on 01/23 for suicidal ideation and was admitted to apsychiatric facility for this. Has history of dementia and sister is medical power of sports attorney. Medical history otherwise significant for CAD [...] currently. Will be admitted for further management. 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 Reading Location: [facility] Chest X-Ray 02/08/25 12:10 IMPRESSION: No acute cardiopulmonary process. Reading Location: [facility] Assessment & Plan Assessment/Plan (1) Adult failure to thrive: (2) Dementia: (3) Weakness: PLAN: Plan Patient is an 84-year-old male who presented to [facility] ED on02/08/2025 with adult failure to thrive. 1. Adult failure to thrive in setting of dementia ? Admit under observation status to [facility]. PT/OT/case management consulted. Nutrition consulted given [...] of neighbors and said he wanted to end it all. Required inpatient psychiatric hospitalization at [facility] [...] atrial flutter ? History of anterior wall PR in 2009 requiring stenting. Had resultant ischemic [...] mild creatinine elevation as above. Is on [id number] mg, will reduce to 40 mg given age greater than 75. Continue home aspirin. DVT prophylaxis: Lovenox CODE STATUS: DNR CCA, DNI. This was confirmed with the patient's sister who is patient's medical power of sports attorney. She notes that this was patient's expressed wishes in the past. Expected disposition: TBD Total clinical time spent by myself addressing the patient's medical issues, reviewing all the data, and collaborating with patient's care team: 75 minutes. Charges/Coding Visit Charges Inpatient E&M: 26058 Init Hosp L3 02/08/25 1536 <Electronically signed by Ajith Zimmer DO> Cosigner Signature (if applicable): CC: Dr. Ajith Zimmer DO; No Primary Care Physician~ Signed [facility] Work Phone: 1(946) 314-616007-29-2025 Discharge summary Author Michael Allen [facility] Note Date/Time February 08, 2025 3:12 pm [facility] Medical Records Department [address] [place] [address] Emergency Department Summary 02/08/25 MR#: [id number] Acct: [id number] Name: SOPHIA CORTES Rep #:[id number] : 1940 84 From: Michael Allen DO PCP: Care Physician,No Primary Status :ADM MARCELA Location: [address] History of Present Illness Chief Complaint: General Illness Detail of Chief Complaint: Failure to thrive and needing group home placement Informant: patient and family Narrative Narrative: Patient presents to the emergency department with his sister. He apparently is not doing well at home and lives alone. She feels he needs group home placement. Patient recently admitted to a psychiatric facility for suicidal ideation on January 23. Patient has history of some dementia. Sister has medical power of sports attorney for him. He is not eating and drinking normally. He is answering some questions but not really having conversations. Sister does not feel he can care for himself. He developed a slight cough a few days ago. [facility] Medical History (Updated 02/08/25 @ 13:[address] 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 Reading Location: [facility] Chest X-Ray 02/08/25 12:10 IMPRESSION: No acute cardiopulmonary process. Reading Location: [facility] 1 view chest x-ray obtained [...] Primary [Primary Care Provider] - Print Language: Polish Disposition Disposition: Acute Care Hospital [facility] What to do if you have Problems For any increased pain, shortness of breath, bleeding, nausea or vomiting, chestpain, or any unexpected problems, contact your Primary Care Provider. Call [facility] ([phone]) or report to the closest Emergency Room. Call 911 if necessary. 02/08/25 1512 <Electronically signed by Michael Allen DO> Cosigner Signature (if applicable): CC: No Primary Care Physician ~ Signed [facility] Work Phone: 1(309) 429-568007-29-2025 History and physical note [facility] Medical Records Department [address] [place] [address] H&P Exam - Hospitalist 02/08/25 1345 MR#: [id number] Acct: [id number] Name: SOPHIA CORTES Rep #:[id number] : 1940 84 From: Ajith pineda DO PCP: Care Physician,No Primary Status :ADM MARCELA Location: [place] [id number] [facility] - General General Date of Admission: 02/08/25 Date of Service: 02/08/25 Chief Complaint: Failure to thrive HPI Narrative SOPHIA CORTES, is a 84 M who presented to [facility] ED on 02/08/2025 with adult failure to thrive. Patient lives at home alone. He was recently seen in the ED here on 01/23 for suicidal ideation and was admitted to apsychiatric facility for this. Has history of dementia and sister is medical power of sports attorney. Medical history otherwise significant for CAD [...] currently. Will be admitted for further management. 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 Reading Location: [facility] Assessment & Plan Assessment/Plan (1) Adult failure to thrive: (2) Dementia: (3) Weakness: PLAN: Plan Patient is an 84-year-old male who presented to [facility] ED on02/08/2025 with adult failure to thrive. 1. Adult failure to thrive in setting of dementia ? Admit under observation status to [facility]. PT/OT/case management consulted. Nutrition consulted given [...] of neighbors and said he wanted to end it all. Required inpatient psychiatric hospitalization at [facility] [...] atrial flutter ? History of anterior wall PR in 2009 requiring stenting. Had resultant ischemic [...] mild creatinine elevation as above. Is on aeixvadbtoqx27 mg, will reduce to 40 mg givenage greater than 75. Continue home aspirin. DVT prophylaxis: Lovenox CODE STATUS: DNR CCA, DNI. This was confirmed with the patient's sister who is patient's medical power of sports attorney. She notes that this was patient's expressed wishes in the past. Expected disposition: TBD Total clinical time spent by myself addressing the patient's medical issues, reviewing all the data, and collaborating with patient's care team: 75 minutes. Charges/Coding Visit Charges Inpatient E&M: 20162 Init Hosp L3 02/08/25 1533 Cosigner Signature (if applicable): CC: Dr. Ajith Zimmer DO; No Primary Care Physician~ Signed [facility]07-29-2025 Discharge summary [facility] Medical Records Department [address] [place] [address] Emergency Department Summary 02/08/25 MR#: [id number] Acct: [id number] Name: SOPHIA CORTES Rep #:[id number] : 1940 84 From: Michael Allen DO PCP: Care Physician,No Primary Status :ADM MARCELA Location: [address] History of Present Illness Chief Complaint: General Illness Detail of Chief Complaint: Failure to thrive and needing group home placement Informant: patient and family Narrative Narrative: Patient presents to the emergency department with his sister. He apparently is not doing well at home and lives alone. She feels he needs group home placement. Patient recently admitted to a psychiatric facility for suicidal ideation on January 23. Patient has history of some dementia. Sister has medical power of sports attorney for him. He is not eating and drinking normally. He is answering some questions but not really having conversations. Sister does not feel he can care for himself. He developed a slight cough a few days ago. PFSH PFS Medical History (Updated 02/08/25 @ 13:[address] 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 Reading Location: [facility] Chest X-Ray 02/08/25 12:10 IMPRESSION: No acute cardiopulmonary process. Reading Location: [facility] 1 view chest x-ray obtained [...] Primary [Primary Care Provider] - Print Language: Polish Disposition Disposition: Acute Care Hospital [facility] What to do if you have Problems For any increased pain, shortness of breath, bleeding, nausea or vomiting, chestpain, or any unexpected problems, contact your Primary Care Provider. Call [facility] ([phone]) or report tothe closest Emergency Room. Call 911 if necessary. 02/08/25 1512 Cosigner Signature (if applicable): CC: No Primary Care Physician ~ Signed [facility]07-29-2025 Radiology Diagnostic study note [facility] Imaging Services [address] [place], [place] [id number] Brain/Head without Contrast MR#: [id number] Acct: [id number] Name: SOPHIA CORTES Rep #: [id number] : 1940 M 84 From: Richard Sullivan MD PCP: Care Physician,No Primary Status: REG ER Study:Brain/Head without Contrast Date of Exa m: 02/08/25 Exam# [id number] Ordering Dr: Briana Allen DO EXAM: NONCONTRAST [...] Allen DO; No Primary Care Physician ~ Electronics Production Supervisor: Signed [facility]07-29-2025 Radiology Diagnostic study note [facility] Imaging Services [address] [place] [id number] Chest 1 View (Portable) MR#: [id number] Acct: [id number] Name: SOPHIA CORTES Rep #: [id number] : 1940 M 84 From: Odalys Lindsay MD PCP: Care Physician,No Primary Status: REG ER Study:Chest 1 View (Portable) Date of Exam: 02/08/25 Exam# [id number] Ordering Dr: Briana Allen DO EXAM: XR [...] IMPRESSION: No acute cardiopulmonary process. Reading Location: [facility] CC: Dr. Michael Allen DO; No Primary Care Physician ~ Electronics Production Supervisor: Signed [facility]07-13-2025 Discharge summary Author Henry Florentino [facility] Note Date/Time January 23, 2025 8:06 am [facility] Medical Records Department [address] [place] [address] Emergency Department Summary 01/23/25 MR#: [id number] Acct: [id number] Name: SOPHIA CORTES Rep #:[id number] : 1940 84 From: Henry sanders DO [...] tired of this and want to end it. 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 He states that I am just sick of it all. He told my nurse prior to me [...] at this time. Patient was accepted to [facility]. Will await UA results prior to arrival. [...] % (Auto) 58.0 Lymph % (Auto) 31.2 Rincon % (Auto) 8.7 Eos % (Auto) 1.7 [...] 02:00 IMPRESSION: NO ACUTE FINDINGS Reading Location: [place] [address] Discharge Plan Triage Chief Complaint: Suicidal ED [...] Primary Referrals: NOT,DEFINED [Non-Staff] - Print Language: Polish What to do if you have Problems For any increased pain, shortness of breath, bleeding, nausea or vomiting, chestpain, or any unexpected problems, contact your Primary Care Provider. Call [facility] ([phone]) or report to the closest Emergency Room. Call 911 if necessary. 01/23/25 0650 <Electronically signed by Henry Florentino DO> Cosigner Signature (if applicable): CC: No Primary Care Physician ~ Signed [facility] Work Phone: 1(678) 283-798607-13-2025 Discharge summary [facility] Medical Records Department [address] [place] [place] [address] Emergency Department Summary 01/23/25 MR#: [id number] Acct: [id number] Name: SOPHIA CORTES Rep #:[id number] : 1940 84 From: Henry sanders DO [...] tired of this and want to end it. 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 He states that I am just sick of it all. He told my nurse prior to me [...] % (Auto) 58.0 Lymph % (Auto) 31.2 Rincon % (Auto) 8.7 Eos % (Auto) 1.7 [...] 02:00 IMPRESSION: NO ACUTE FINDINGS Reading Location: [place] [address] Discharge Plan Triage Chief Complaint: Suicidal ED [...] Primary Referrals: NOT,DEFINED [Non-Staff] - Print Language: Polish What to do if you have Problems For any increased pain, shortness of breath, bleeding, nausea or vomiting, chestpain, or any unexpected problems, contact your Primary Care Provider. Call [facility] ([phone]) or report tothe closest Emergency Room. Call 911 if necessary. 01/23/25 0650 Cosigner Signature (if applicable): CC: No Primary Care Physician ~ Signed [facility]07-13-2025 Radiology Diagnostic study note [facility] Imaging Services [address] [place], [place] [id number] Brain/Head without Contrast MR#: [id number] Acct: [id number] Name: SOPHIA CORTES Rep #: [id number] : 1940 M 84 From: Ricky Alvarez MD PCP: Care Physician,No Primary Status: REG ER Study:Brain/Head without Contrast Date of Exa m: 01/23/25 Exam# [id number] Ordering Dr: Henry Kirkpatrick DO PROCEDURE: BRAIN/HEAD [...] Contrast IMPRESSION: NO ACUTE FINDINGS Reading Location: [id number] CC: Dr. Henry Florentino DO; No Primary Care Physician ~ Electronics Production Supervisor: Signed [facility]05-21-2025 Procedure [facility] [address] [place] [address] Pacemaker Check Date of Service: 12/01/24 1714 MR#: [id number] Acct: [id number] Name: SOPHIA CORTES Rep #: [id number] : 1940 From: Toya Juan r Age/Sex: 83/M Location: [facility] Status: Signed Billing Codes ICD Device Billin ICD Dev Prog Eval, Dual Assessment and Plan Assessment and Plan (1) Ischemic cardiomyopathy: Status: Chronic (2) Presence of automatic implantable cardioverter-defibrillator: Status: Chronic Comment: [employer] ICD Dual Chamber (3) NSVT (nonsustained ventricular tachycardia): Status: Chronic 12/01/241713 > Date _ Toya Herrera Geraldineigner Signature: Date (if applicable) CC: ~ [facility]05-21-2025 Evaluation note* Diagnosis Onset Date Resolution Status Admit Date Ischemic cardiomyopathy chronic M 2024 1:55pm NSVT (nonsustained ventricular tachycardia) chronic [...] 23, 2012 chronic Ma y 2024 1:56pm [facility] Work Phone: 1([phone]) 338-963705-21-2025 Evaluation note* Diagnosis Onset Date Resolution Status [...] implantable cardioverter-defibrillator July 23, 2012 chronic 2024 1:56pm Adult failure to thrive acute J milli 2024 1:45pm Dementia acute February 08 1:45pm Weakness acute February 08 1:45pm Memory deficit chronic February 08, 2025 1:45pm [facility] Work Phone: 1(401) 259-366405-25-2019 Discharge summary Author [facility] Note Date/Time February 10, 2025 3:37 pm [facility] Medical Records Department [address] [place] [address] Transfer to [facility] MR#: [id number] Acct: [id number] Name: SOPHIA CORETS Hector Rep #:[id number] : 1940 84 From: Isadora Arndt MD PCP: Care Physician,No Primary Status :ADM MARCELA Certification of patient admission REQUIRED AT TIME OF ADMISSION. I CERTIFY THAT [facility] SERVICES ARE REQUIRED TO BE GIVEN ON AN IN-PATIENT BASIS BECAUSE OF THE ABOVE NAMED PATIENT'S NEED FOR CORRECTION CARE ON A CONTINUING BASIS FOR THE CONDITION(S) FOR WHICH HE/SHE WAS RECEIVING IN-PATIENT HOSPITAL SERVICES PRIOR TO HIS/HER TRANSFER TO [facility]. 02/10/25 1105<Electronically signed by Isadora Arndt MD> [...] in before D/C Order can be placed): Retirement Facility 02/10/25 1105 <Electronically signed by Isadora Arndt MD> Cosigner Signature (if applicable): CC: Dr. 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 Presence of automatic implan table cardioverter-defibrillator July 23, 2012 [facility] Work Phone: 1(810) 790-482301-10-2013 Evaluation note* Diagnosis Onset Date Resolution Status Paroxysmal atrial flutter ac [place] Ischemic cardiomyopathy chrome worker mariah Presence of automatic implan table cardioverter-defibrillator July 23, 2012 chronic Essential hypertension acute Memory deficit acute NSVT (nonsustained ventricular tachycardia) acute Paroxysmal atrial flutter ac [place] Bradycardia chronic History of coronary artery stent placement July chronic HLD (hyperlipidemia) chronic Ischemic cardiomyopathy chrome worker 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 No January 22, 2025 11:50pm Advance Directive Response Recorded Date/ Time Do you have a Healthcare Power of Bakery Products Checker? No January 22, 2025 11:50pm Do you have a Healthcare Power of Bakery Products Checker? No February 08, 2025 12:21pm Advance Directive Response Recorded Date/ Time Do you have a Healthcare Power of Bakery Products Checker? No January 22, 2025 11:50pm Do you have a Healthcare Power of Bakery Products Checker? No February 08, 2025 3:39pm Summary Purpose [...] Inactive Member Role Status Dates Marcelino Arizmendi PONY RIDE OPERATOR, PONY RIDE OPERATOR-C Attending Provider Active S tart: December 01, [...] Inactive Member Role Status Dates Marcelino Arizmendi PONY RIDE OPERATOR, PONY RIDE OPERATOR-C Attending Provider Active No Primary Care Physician Primary Care Provider, Refer ring Provider Active Team Status: Inactive Member Role Status Dates No Primary Care Physician Primary Care Provider Active Dr. Wolfgang Conde MD Attending Provider Active Team Status: Inactive Member Role Status Dates No Primary Care Physician Primary Care Provider Active Marcelino Arizmendi PONY RIDE OPERATOR, PONY RIDE OPERATOR-C Attending Provider, Referring Pro vider Active Team Status: Active Member Role Status Dates No Primary Care Physician Family Provider Active Team Status: Inactive Member Role Status Dates No Primary Care Physician Primary Care Provider, Refer ring Provider Active Toya Herrera Attending Provider Active Team Status: Inactive Member Role Status Dates No Primary Care Physician Primary Care Provider, Refer ring Provider Active Marcelino Arizmendi PONY RIDE OPERATOR, PONY RIDE OPERATOR-C Attending Provider Active Team Status: Active Member [...] Inactive Member Role/Relationship Status Dates Marcelino Arizmendi PONY RIDE OPERATOR, PONY RIDE OPERATOR-C Attending Provider Active S tart: December 01, [...] Active Start: February 10, 2025 Dr. Isadora Arntd MD Attending Provider Active Start: February 10, [...] section and content) DATE CREATED AUTHOR 05/25/2025 [facility] FOR RECORDS PERTAINING TO PATIENTS WHO [...] BE BASED ON THE PRIMARY CLINICAL RECORDS. [employer] provides no warranty or guarantee of the accuracy or completeness of information in this document.
[2025-07-04 08:25] LABS: Hematocrit 34.0 % (40-54); Hemoglobin 11.2 g/dL (13.0-16.5); Mean Corp Hgb Conc 32.9 g/dL (32-36); Mean Corpuscular Volume 97.7 fL (80-94); Mean Platelet Vol. 11.9 fl (6.2-12.0); Platelet Count 137 K/mm3 (150-450); RBC Distribution Width CV 12.4 % (11.6-14.6); RBC Distribution Width SD 44.2 fl (35.1-43.9); Red Blood Count 3.48 M/mm3 (4.6-6.2); White Blood Count 5.6 K/mm3 (4.4-11.0)
[2025-07-04 08:38] LABS: Anion Gap 11 (5-15); BUN 17 mg/dL (4-19); BUN/Creat Ratio 17.8 RATIO (10-20); Calcium,Total 8.7 mg/dL (7.6-11.0); Carbon Dioxide 24.9 mmol/L (21.0-32.0); Chloride 107 mmol/L (98-108); Glucose 89 mg/dL (70-99); Potassium 3.8 mmol/L (3.3-5.1)
== END ==
LOC: OLS.WCC 05:00
PROVIDERS: Visit Provider Family Medicine
DX: I10 Essential (primary) hypertension (principal); Z79.899 Other long term (current) drug therapy
CPT/HCPCS: 36415; 80048; 85027